=== PATIENT | male | born 1970 ===

== ENCOUNTER 2016-10-21 10:20 | Inpatient (IN) | payer OTHER, SELFPAY ==
[2016-10-21] MEDS ORDERED: Sodium Chloride 0.9% 1,000 ML IV ONE (10:54)
[2016-10-21] MEDS ORDERED: Albuterol-Ipratrop 3 mg / 0.5 (3 ml) UD IH STA (10:56)
--- NOTE | 2016-10-21 11:05 | C.PDOC ---
History Of Present Illness HX IS LIMITED DUE TO CLIN COND 45-YEAR-OLD MALE, PRESENTS TO THE EMERGENCY DEPARTMENT WITH CO WORSENING COUGH, ABD PAIN X SEV DAYS. GEN ABD PAIN, BLOATING. HO CHRONIC ETOH USE. PS "I DRANK ONLY 1 BEER THIS MORNING", LESS THAN USUAL. +COUGH, SOB. UNK FEVER. ROS LIMITED EXAM MOD TOX MOD RESP DIST 88% ON 5L HEENT ANICTERIC LUNGS TACHYPNIC, SPEAKING FULL SENTENCES +R RHONCHI CV RRR SINUS TACH GEN TREMORS NEURO INTACT PSYCH CALM COOPERATIVE NO ACUTE INTOX SKIN WARM DRY; CHRONIC PSORIATIC LESIONS RECTAL NO BLOOD NO STOOL IN VAULT Time Seen by Provider: 10/21/16 10:42 Chief Complaint (Nursing): Shortness Of Breath History/Exam Limitations: clinical condition Past Medical History Reviewed: Historical Data, Nursing Documentation, Vital Signs Vital Signs: Last Vital Signs Temp 102.2 F H 10/21/16 12:30 Pulse 142 H 10/21/16 13:11 Resp 20 10/21/16 13:11 BP 99/57 L 10/21/16 13:11 Pulse Ox 90 L 10/21/16 13:50 - Medical History PMH: HTN Family History: States: No Known Family Hx - Social History Hx Alcohol Use: Yes Hx Substance Use: No - Immunization History Hx Tetanus Toxoid Vaccination: No Hx Influenza Vaccination: No Hx Pneumococcal Vaccination: No Review Of Systems Review Of Systems: ROS cannot be obtained secondary to pt's inabilty to answer questions. Physical Exam - Physical Exam Appears: Other (MOD TOX MOD RESP DIST 88% ON 5L) Skin: Warm, Dry, Other (CHRONIC PSORIATIC LESIONS) Eye(s): bilateral: PERRL, Other (ANICTERIC) Nose: Normal Oral Mucosa: Moist Lips: Normal Appearing Neck: Normal ROM Cardiovascular: Rhythm Regular, No Murmur, Other (TACHYCARDIC) Respiratory: Other ( TACHYPNIC, SPEAKING FULL SENTENCES +R RHONCHI) Rectal: Other ( NO BLOOD NO STOOL IN VAULT) Extremity: Normal ROM Neurological/Psych: Other (CALM COOPERATIVE NO ACUTE INTOX; GEN TREMORS) ED Course And Treatment - Laboratory Results Result Diagrams: 10/21/16 11:04 10/21/16 11:04 Interpretation Of Abnormal: HYPOXEMIA ECG: Interpreted By Me, Viewed By Me ECG Rhythm: Sinus Tachycardia ECG Interpretation: No Acute Changes Rate From EC O2 Sat by Pulse Oximetry: 90 (on RA) Pulse Ox Interpretation: Normal Progress - Re-Evaluation Re-evaluation Note: 10/21/16 11:27 CODE SEPSIS ACTIVATED 10/21/16 11:42 ON VAPOTHERM, 95%. RESPIRATION IMPROVED 10/21/16 11:46 D/W DR JOHNSON ICU WILL EVAL 10/21/16 11:[address] DUE TO ABN GFR. 10/21/16 11:52 D/W DR CISNEROS WILL ADMIT 10/21/16 12:30 CALLED TO BEDSIDE BECAUSE PT ACTIVELY SEIZING; PATIENT FOUND TO BE APNEIC AND CYANOTIC WITH NO PALPABLE ULSE, PT IS BRADYCARDIC IN 40S. ACLS PROTOCOL INITIATED. PATIENT IS NOW AWAKE AND APPEARS POST-ICTAL. HE IS SINUS TACH 160S W POOR AIRWAY PROTECTION. CASE DW DR JOHNSON, WHO IS MADE AWARE, RECOMMENDS INTUBATION PRIOR TO ICU. ANASTHESIOLOGY WAS PAGED 10/21/16 13:59 DESAT 65% ON VENT. PERSIST PROFUSE SECRETIONS ON ETT SUCTION. 80% ON VENT, TV 550 - Data Reviewed Data Reviewed: Lab, Diagnostic imaging, EKG, Old records - Critical Care Citical Care: Excluding Proc Time Critical Care Time: 120 minutes - Continuity of Care Discussed patient case with:: Patient, On-call PMD-pt unassigned Discussed pt. case with senior financial consultant/specialty: Pulmonary/Crit. Care Disposition Counseled Patient/Family Regarding: Studies Performed, Diagnosis, Need For Followup - Disposition Disposition: HOSPITALIZED Disposition Time: 11:47 Condition: SERIOUS - Clinical Impression Clinical Impression: Pneumonia, Alcohol withdrawal, Hypoxemia, Respiratory distress - Scribe Statement The provider has reviewed the documentation as recorded by the Scribe (Chauncey Hernandez) All medical record entries made by the Scribe were at my direction and personally dictated by me. I have reviewed the chart and agree that the record accurately reflects my personal performance of the history, physical exam, medical decision making, and the department course for this patient. I have also personally directed, reviewed, and agree with the discharge instructions and disposition. Decision To Admit - Pt Status Changed To: Hospital Disposition Of: Inpatient - Admit Certification Admit to Inpatient:: After my assessment, the patient will require hospitalization for at least two midnights. This is because of the severity of symptoms shown, intensity of services needed, and/or the medical risk in this patient being treated as an outpatient. - InPatient: Physician Admission Certification: I certify that this patient requires 2 or more midnights of care for the following reason:: SEE NOTE - . Bed Request Type: ICU Admitting Physician: Chelsey Cisneros Patient Diagnosis: Pneumonia, Alcohol withdrawal, Hypoxemia, Respiratory distress
[2016-10-21] MEDS ORDERED: cefTRIAXone IV 1 gm in Dextros 50 ML IV ONE (11:07)
[2016-10-21] MEDS ORDERED: Azithromycin 500 MG in Sodium Chloride 0.9% 250 ML IV STA (11:07)
[2016-10-21 11:19] LABS: EOS % 0.1 % (0.0-4.0); HEMATOCRIT 38.8 % (35.0-51.0); LYMPH # 0.2 K/uL (1.0-4.3); LYMPH % 2.3 % (20.0-40.0); MEAN CELL VOLUME 98.8 fL (80.0-94.0); MEAN CORPUSCULAR HEMOGLOBIN 33.4 pg (27.0-31.0); MEAN CORPUSCULAR HGB CONC 33.8 g/dL (33.0-37.0); MEAN PLATELET VOLUME 10.4 fL (7.2-11.7); MONO # 0.2 K/uL (0.0-0.8); MONO % 2.2 % (0.0-10.0); RED CELL DISTRIBUTION WIDTH 14.8 % (11.5-14.5); WHITE BLOOD COUNT 10.6 K/uL (4.8-10.8)
[2016-10-21 11:25] LABS: POTASSIUM 3.3 mmol/L (3.6-5.2)
[2016-10-21 11:26] LABS: ABG ALLEN TEST POS; DRAW SITE RRAD
[2016-10-21 11:27] LABS: ALB/GLOB RATIO 0.8 (1.0-2.1); BILIRUBIN,TOTAL 3.5 mg/dL (0.2-1.3); PHOSPHOROUS 2.9 mg/dL (2.5-4.5); TOTAL PROTEIN 8.4 g/dL (6.3-8.3)
[2016-10-21 11:28] LABS: CALCIUM 8.8 mg/dl (8.6-10.4); MAGNESIUM 1.2 mg/dL (1.6-2.3)
[2016-10-21 11:32] LABS: PLATELET COUNT 57 K/uL (130-400)
[2016-10-21 11:35] LABS: INR 1.6
[2016-10-21] MEDS ORDERED: Sodium Chloride 0.9% 1,000 ML ONE (11:36)
[2016-10-21 11:37] LABS: VENOUS BLOOD GAS BASE EXCESS -9.9 mmol/L (0.0-2.0); VENOUS BLOOD GAS PCO2 24 mmHg (40-60); VENOUS BLOOD PH 7.36 (7.32-7.43)
[2016-10-21 11:40] LABS: TROPONIN I 0.015 ng/mL (0.00-0.120)
[2016-10-21] MEDS ORDERED: Azithromycin 500mg/250ML NS 500 MG/250 ML BAG IVPB ONE (11:43)
[2016-10-21] MEDS ORDERED: cefTRIAXone IV 1 gm in Dextros 50 ML IVPB ONE (11:43)
[2016-10-21] MEDS ORDERED: Iodixanol 320 MG/ML 100 ML BOTTLE IV ONE (11:48)
[2016-10-21 11:49] LABS: TOTAL CELLS COUNTED 100
[2016-10-21 11:57] LABS: METAMYELOCYTE 1 % (0-0)
[2016-10-21 12:03] LABS: NEUTROPHIL 48 % (50-75)
[2016-10-21 12:35] LABS: RBC URINE 70 /hpf (0-3); URINE BACTERIA MANY (<OCC); URINE BILIRUBIN 1+ (NEGATIVE); URINE BLOOD 2+ (NEGATIVE); URINE COLOR Amber (YELLOW); URINE GLUCOSE (UA) NORMAL (Normal); URINE HYALINE CAST >20 /lpf (0-2); URINE KETONE NEGATIVE (NEGATIVE); URINE LEUKOCYTE ESTERASE NEG Leu/uL (Negative); URINE PROTEIN 2+ mg/dL (NEGATIVE); WBC URINE 6 /hpf (0-5)
[2016-10-21] MEDS ORDERED: Etomidate 20 mg/10ml Inj IV ONE ×2 (12:53→15:30)
[2016-10-21] MEDS ORDERED: Succinylcholine Chloride 20 mg/ml Syr (5 ml) IV STA (12:57)
[2016-10-21] MEDS ORDERED: Rocuronium 10 mg/ml (5 ml) IV ONE (13:06)
[2016-10-21] MEDS ORDERED: Midazolam 2 MG/2 ML VIAL IVP ONE (13:09)
--- NOTE | 2016-10-21 13:21 | CP.PCM.HP ---
<AndrySimran AnishaJunito - Last Filed: 10/21/16 18:31> History of Present Illness - History of Present Illness History of Present Illness: History is limited due to patient is in acute distress. per the ED note this is a 45 year old male who presented to the ED with complaint of worsening cough, abdominal pain for seven days. General abdominal pain and bloating. Chronic alcohol use, "I drank only one beer this morning," less than usual. Patient had a seizure in the ED which was followed by hypotension and hypoxia. Patient was intubated in the emergency room. Patient was transferred to the ICU where he was sedated and a central line was placed. Present on Admission - Present on Admission Any Indicators Present on Admission: No Review of Systems - Review of Systems Systems not reviewed;Unavailable: Intubated Past Patient History - Infectious Disease Hx of Infectious Diseases: None - Past Social History Smoking Status: Former Smoker - CARDIAC Hx Hypertension: Yes - INTEGUMENTARY Hx Psoriasis: Yes - PSYCHIATRIC Hx Substance Use: No - SURGICAL HISTORY Hx Surgeries: No - ANESTHESIA Hx Anesthesia: No Meds Allergies/Adverse Reactions: Allergies Allergy/AdvReac Type Severity Reaction Status Date / Time No Known Allergies Allergy Verified 10/21/16 10:28 Physical Exam - Constitutional Appears: In Acute Distress - Head Exam Head Exam: ATRAUMATIC, NORMAL INSPECTION - ENT Exam ENT Exam: Mucous Membranes Moist - Respiratory Exam Respiratory Exam: Decreased Breath Sounds, Respiratory Distress Additional comments: Patient is intubated - Cardiovascular Exam Cardiovascular Exam: Tachycardia, REGULAR RHYTHM, +S1, +S2 - GI/Abdominal Exam GI & Abdominal Exam: Distended, Firm, Normal Bowel Sounds - Extremities Exam Extremities exam: Positive for: normal inspection. Negative for: pedal edema - Neurological Exam Additional comments: Patient is sedated - Skin Additional comments: 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, bilateral upper extremities, and in gluteal fold. Results - Vital Signs Recent Vital Signs: Last Vital Signs Temp 102.2 F H 10/21/16 12:30 Pulse 85 10/21/16 12:30 Resp 34 H 10/21/16 12:30 BP 131/79 10/21/16 12:30 Pulse Ox 90 L 10/21/16 13:19 - Labs Result Diagrams: 10/21/16 18:06 10/21/16 18:06 Labs: Laboratory Results - last 24 hr 10/21/16 10/21/16 12:14 12:14 Urine Color Bree Urine Clarity Turbid Urine pH 5.0 Ur Specific [place] 1.024 Urine Protein 2+ H Urine Glucose (UA) Normal Urine Ketones Negative Urine Blood 2+ H Urine Nitrate Negative Urine Bilirubin 1+ H Urine Urobilinogen 2.0 Ur Leukocyte Esterase Neg Urine WBC (Auto) 6 H Urine RBC (Auto) 70 H Ur Squamous Epith Cells 8 H Urine Bacteria Many H Hyaline Casts >20 H Urine Opiates Screen Negative Urine Methadone Screen Negative Ur Barbiturates Screen Negative Ur Phencyclidine Scrn Negative Ur Amphetamines Screen Negative U Benzodiazepines Scrn Negative U Oth Cocaine Metabols Negative U Cannabinoids Screen Negative Assessment & Plan (1) Alcohol withdrawal Assessment and Plan: 45 year old male who presented to the ED with complaint of worsening cough, abdominal pain for seven days. - Chronic alcohol abuse - Sedated - Propofol - Intubated - f/u CT of head - Neurology Consult: Dr. Pineda --> help appreciated - Folic Acid, Thamine, Multivitamin IV daily in 5% Dextrose - Chest X-ray (10/21): Persistent dense opacity in the right upper and mid lung could represent consolidation, underlying mass could no be excluded. Also suspected is developing pulmonary edema in the left lung, bilateral pulmonary venous congestion and interstitial pulmonary edema. The right IJV line terminates in the SVC. No pneumothorax. - Sodium Bicarb Drip - pH: 7.08 - Lactate: 3.1 - Platelets (10/21): 52 DVT proph - SCDs; contraindication of VTE due to low platelets GI proph - Pepcid 20mg PO Daily Code status - full code Status: Acute Priority: High (2) Sepsis Assessment and Plan: - Sepsis due to Pneumonia - f/u blood culture, f/u urine culture, f/u sputum culture - Zosyn started 10/21 - ID Consult: Dr. Bowers --> help appreciated Status: Acute Priority: High (3) Thrombocythemia Assessment and Plan: - H/H (10/21): 11.4/34.4 - PT/INR: 18.5/1.6 - Platelets (10/21): 52 Status: Chronic (4) Transaminitis Assessment and Plan: - AST/ALT: 91/50 - Monitor Status: Acute <Tisha,Juan C M - Last Filed: 10/22/16 17:55> Results - Vital Signs Recent Vital Signs: Last Vital Signs Temp 100.4 F H 10/22/16 09:28 Pulse 120 H 10/22/16 17:30 Resp 28 H 10/22/16 17:30 BP 112/75 10/22/16 16:59 Pulse Ox 96 10/22/16 17:30 - Labs Result Diagrams: 10/22/16 06:31 10/22/16 06:31 Labs: Laboratory Results - last 24 hr 10/21/16 10/21/16 10/21/16 18:06 18:06 20:00 WBC 6.2 RBC 3.46 L Hgb 11.4 L Hct 34.4 L MCV 99.4 H MCH 33.0 H MCHC 33.2 RDW 14.9 H Plt Count 52 L MPV 10.1 Neut % (Auto) 92.7 H Lymph % (Auto) 3.5 L Moca % (Auto) 1.8 Eos % (Auto) 1.8 Baso % (Auto) 0.2 Neut # 5.8 Lymph # 0.2 L Moca # 0.1 Eos # 0.1 Baso # 0.0 Neutrophils % (Manual) 41 L Band Neutrophils % 43 H* Lymphocytes % (Manual) 6 L Monocytes % (Manual) 1 Metamyelocytes % 6 H Myelocytes % 3 H Nucleated RBC % Platelet Estimate Decreased L Hypochromasia (manual) Poikilocytosis (manual Anisocytosis (manual) Tear Drop Cells Ja Cells Puncture Site Rba pCO2 38 pO2 54 L HCO3 18.7 L ABG pH 7.29 L ABG Total CO2 19.5 L ABG O2 Saturation 90.9 L ABG Base Excess -7.7 L ABG Hemoglobin 11.4 L ABG Carboxyhemoglobin 1.6 H POC ABG HHb (Measured) 8.9 H ABG Methemoglobin 1.0 Nicolas Test Pos ABG Potassium A-a O2 Difference 612.0 Respiratory Index 11.3 Hgb O2 Saturation 88.4 L Glucose Lactate Vent Mode Prvc Mechanical Rate 24 FiO2 100.0 Tidal Volume 600 PEEP 6 Sodium 133 Potassium 4.2 Chloride 101 Carbon Dioxide 19 L Anion Gap 17 BUN 27 H Creatinine 1.9 H Est GFR ( Amer) 46 Est GFR (Non-Af Amer) 38 POC Glucose (mg/dL) Random Glucose 90 Calcium 6.5 L Phosphorus 5.4 H Magnesium 1.6 Total Bilirubin 2.6 H AST 91 H D ALT 50 Alkaline Phosphatase 46 Ammonia Total Protein 6.2 L Albumin 2.5 L D Globulin 3.7 Albumin/Globulin Ratio 0.7 L Procalcitonin Arterial Blood Potassium Random Vancomycin Hepatitis A IgM Ab Hep Bs Antigen Hep B Core IgM Ab Hepatitis C Antibody HIV 1&2 Antibody Screen 10/22/16 10/22/16 10/22/16 05:26 06:31 06:31 WBC 5.9 RBC 3.23 L Hgb 10.8 L Hct 32.2 L MCV 99.7 H MCH 33.5 H MCHC 33.6 RDW 15.0 H Plt Count 43 L MPV 10.1 Neut % (Auto) 92.3 H Lymph % (Auto) 3.9 L Moca % (Auto) 3.3 Eos % (Auto) 0.5 Baso % (Auto) 0.0 Neut # 5.4 Lymph # 0.2 L Moca # 0.2 Eos # 0.0 Baso # 0.0 Neutrophils % (Manual) 44 L Band Neutrophils % 49 H* Lymphocytes % (Manual) 2 L Monocytes % (Manual) 5 Metamyelocytes % Myelocytes % Nucleated RBC % 1 H Platelet Estimate Decreased L Hypochromasia (manual) Slight Poikilocytosis (manual Slight Anisocytosis (manual) Slight Tear Drop Cells Slight [place] Cells Slight Puncture Site Rr pCO2 42 pO2 54 L HCO3 22.4 ABG pH 7.34 L ABG Total CO2 24.0 ABG O2 Saturation 91.7 L ABG Base Excess -3.0 L ABG Hemoglobin 10.7 L ABG Carboxyhemoglobin 1.3 POC ABG HHb (Measured) 8.1 H ABG Methemoglobin 1.5 Nicolas Test Pos ABG Potassium A-a O2 Difference 600.0 Respiratory Index 10.3 Hgb O2 Saturation 89.0 L Glucose Lactate Vent Mode A/c Mechanical Rate 24 FiO2 100.0 Tidal Volume 500 PEEP 6 Sodium Potassium Chloride Carbon Dioxide Anion Gap BUN Creatinine Est GFR ( Amer) Est GFR (Non-Af Amer) POC Glucose (mg/dL) Random Glucose Calcium Phosphorus Magnesium Total Bilirubin AST ALT Alkaline Phosphatase Ammonia Total Protein Albumin Globulin Albumin/Globulin Ratio Procalcitonin 143.18 H Arterial Blood Potassium Random Vancomycin Hepatitis A IgM Ab Hep Bs Antigen Hep B Core IgM Ab Hepatitis C Antibody HIV 1&2 Antibody Screen 10/22/16 10/22/16 10/22/16 06:31 06:31 06:31 WBC RBC Hgb Hct MCV MCH MCHC RDW Plt Count MPV Neut % (Auto) Lymph % (Auto) [place]oca % (Auto) Eos % (Auto) Baso % (Auto) Neut # Lymph # Moca # Eos # Baso # Neutrophils % (Manual) Band Neutrophils % Lymphocytes % (Manual) Monocytes % (Manual) Metamyelocytes % Myelocytes % Nucleated RBC % Platelet Estimate Hypochromasia (manual) Poikilocytosis (manual Anisocytosis (manual) Tear Drop Cells Ja Cells Puncture Site pCO2 pO2 HCO3 ABG pH ABG Total CO2 ABG O2 Saturation ABG Base Excess ABG Hemoglobin ABG Carboxyhemoglobin POC ABG HHb (Measured) ABG Methemoglobin [place] Test ABG Potassium A-a O2 Difference Respiratory Index Hgb O2 Saturation Glucose Lactate Vent Mode Mechanical Rate FiO2 Tidal Volume PEEP Sodium 133 Potassium 3.7 Chloride 97 L Carbon Dioxide 21 L Anion Gap 19 BUN 42 H Creatinine 3.0 H Est GFR ( Amer) 27 Est GFR (Non-Af Amer) 23 POC Glucose (mg/dL) Random Glucose 87 Calcium 6.7 L Phosphorus 5.7 H Magnesium 1.7 Total Bilirubin 2.8 H AST 145 H D ALT 62 Alkaline Phosphatase 30 L D Ammonia 51 H Total Protein 5.8 L Albumin 2.5 L Globulin 3.3 Albumin/Globulin Ratio 0.8 L Procalcitonin Arterial Blood Potassium Random Vancomycin Hepatitis A IgM Ab Negative Hep Bs Antigen Negative Hep B Core IgM Ab Negative Hepatitis C Antibody Negative HIV 1&2 Antibody Screen 10/22/16 10/22/16 10/22/16 06:31 11:44 17:37 WBC RBC Hgb Hct MCV MCH MCHC RDW Plt Count MPV Neut % (Auto) Lymph % (Auto) [place] % (Auto) Eos % (Auto) Baso % (Auto) Neut # Lymph # Moca # Eos # Baso # Neutrophils % (Manual) Band Neutrophils % Lymphocytes % (Manual) Monocytes % (Manual) Metamyelocytes % Myelocytes % Nucleated RBC % Platelet Estimate Hypochromasia (manual) Poikilocytosis (manual Anisocytosis (manual) Tear Drop Cells [place] Cells Puncture Site Rra pCO2 34 L pO2 55 L HCO3 23.4 ABG pH 7.42 ABG Total CO2 23.1 ABG O2 Saturation 93.9 L ABG Base Excess -1.7 ABG Hemoglobin ABG Carboxyhemoglobin POC ABG HHb (Measured) ABG Methemoglobin Nicolas Test Pos ABG Potassium 4.4 A-a O2 Difference 616.0 Respiratory Index 11.2 Hgb O2 Saturation Glucose 90 Lactate 2.1 Vent Mode Mechanical Rate 24 FiO2 100.0 Tidal Volume 500 PEEP 10 Sodium 137.0 Potassium Chloride 105.0 Carbon Dioxide Anion Gap BUN Creatinine Est GFR ( Amer) Est GFR (Non-Af Amer) POC Glucose (mg/dL) 81 Random Glucose Calcium Phosphorus Magnesium Total Bilirubin AST ALT Alkaline Phosphatase Ammonia Total Protein Albumin Globulin Albumin/Globulin Ratio Procalcitonin Arterial Blood Potassium 4.4 Random Vancomycin 12.07 Hepatitis A IgM Ab Hep Bs Antigen Hep B Core IgM Ab Hepatitis C Antibody HIV 1&2 Antibody Screen Negative Assessment & Plan (1) Alcohol withdrawal Status: Acute Priority: High (2) Hypoxemia Status: Acute (3) Pneumonia Status: Acute (4) Respiratory distress Status: Acute (5) Seizure disorder Status: Acute Priority: High (6) Sepsis Status: Acute Priority: High (7) Thrombocythemia Status: Chronic (8) Psoriasis Status: Acute Attending/Attestation - Attestation I have personally seen and examined this patient.: Yes I have fully participated in the care of the patient.: Yes I have reviewed all pertinent clinical information: Yes Notes (Text): 10/22/16 17:54 Patient was seen and examined at bedside in ICU. I discussed the plan of care with the admitting team. I agree with the history and physical and assessment/ plan documented by the resident.
--- NOTE | 2016-10-21 13:21 | CP.PCM.CON ---
<Anoop Wildessyca AnishaJunito - Last Filed: 10/21/16 18:13> History of Present Illness - History of Present Illness History of Present Illness: History is limited due to patient is in acute distress. per the ED note this is a 45 year old male who presented to the ED with complaint of worsening cough, abdominal pain for seven days. General abdominal pain and bloating. Chronic alcohol use, "I drank only one beer this morning," less than usual. Patient had a seizure in the ED which was followed by hypotension and hypoxia. Patient was intubated in the emergency room. Patient was transferred to the ICU where he was sedated and a central line was placed. Review of Systems - Review of Systems Systems not reviewed;Unavailable: Intubated Past Patient History - Infectious Disease Hx of Infectious Diseases: None - Past Social History Smoking Status: Former Smoker - CARDIAC Hx Hypertension: Yes - INTEGUMENTARY Hx Psoriasis: Yes - PSYCHIATRIC Hx Substance Use: No - SURGICAL HISTORY Hx Surgeries: No - ANESTHESIA Hx Anesthesia: No Meds Allergies/Adverse Reactions: Allergies Allergy/AdvReac Type Severity Reaction Status Date / Time No Known Allergies Allergy Verified 10/21/16 10:28 - Medications Medications: Current Medications Sodium Chloride (Sodium Chloride 0.9%) 1,000 mls @ 100 mls/hr IV .Q10H ONE Stop: 10/21/16 20:53 Sodium Chloride (Sodium Chloride 0.9%) 2,250 mls @ 1,000 mls/hr IV .Q2H15M ONE Stop: 10/21/16 13:41 Last Admin: 10/21/16 11:30 Dose: 1,000 mls/hr Physical Exam - Constitutional Appears: In Acute Distress - Head Exam Head Exam: ATRAUMATIC, NORMAL INSPECTION - ENT Exam ENT Exam: Mucous Membranes Moist - Neck Exam Neck exam: Positive for: Normal Inspection - Respiratory Exam Respiratory Exam: Decreased Breath Sounds - Cardiovascular Exam Cardiovascular Exam: Tachycardia, REGULAR RHYTHM, +S1, +S2 - GI/Abdominal Exam GI & Abdominal Exam: Distended, Firm, Normal Bowel Sounds - Extremities Exam Extremities exam: Positive for: normal inspection. Negative for: pedal edema - Neurological Exam Additional comments: Patient is sedated - Skin Additional comments: 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, bilateral upper extremities, and in gluteal fold. Results - Vital Signs Recent Vital Signs: Last Vital Signs Temp 102.2 F H 10/21/16 12:30 Pulse 85 10/21/16 12:30 Resp 34 H 10/21/16 12:30 BP 131/79 10/21/16 12:30 Pulse Ox 90 L 10/21/16 13:19 - Labs Result Diagrams: 10/21/16 18:06 10/21/16 11:04 Labs: Laboratory Results - last 24 hr 10/21/16 10/21/16 12:14 12:14 Urine Color Bree Urine Clarity Turbid Urine pH 5.0 Ur Specific And[place] 1.024 Urine Protein 2+ H Urine Glucose (UA) Normal Urine Ketones Negative Urine Blood 2+ H Urine Nitrate Negative Urine Bilirubin 1+ H Urine Urobilinogen 2.0 Ur Leukocyte Esterase Neg Urine WBC (Auto) 6 H Urine RBC (Auto) 70 H Ur Squamous Epith Cells 8 H Urine Bacteria Many H Hyaline Casts >20 H Urine Opiates Screen Negative Urine Methadone Screen Negative Ur Barbiturates Screen Negative Ur Phencyclidine Scrn Negative Ur Amphetamines Screen Negative U Benzodiazepines Scrn Negative U Oth Cocaine Metabols Negative U Cannabinoids Screen Negative Assessment & Plan (1) Alcohol withdrawal Assessment and Plan: 45 year old male who presented to the ED with complaint of worsening cough, abdominal pain for seven days. Neuro: - Chronic alcohol abuse - Sedated - Propofol - Intubated - f/u CT of head - Neurology Consult: Dr. Pineda --> help appreciated - Folic Acid, Thamine, Multivitamin IV daily in 5% Dextrose Pulm: - Intubated - Chest X-ray (10/21): Persistent dense opacity in the right upper and mid lung could represent consolidation, underlying mass could no be excluded. Also suspected is developing pulmonary edema in the left lung, bilateral pulmonary venous congestion and interstitial pulmonary edema. The right IJV line terminates in the SVC. No pneumothorax. - Sodium Bicarb Drip - pH: 7.08 - Lactate: 3.1 CV: - Monitor Heme: - H/H (10/21): 11.4/34.4 - PT/INR: 18.5/1.6 - Platelets (10/21): 52 Renal: - BUN/Cr (10/21): 27/1.9 - Garcia placed 10/21 - Monitor Endo: - Monitor - No acute issues GI: - NPO - AST/ALT: 91/50 - Monitor ID: - Sepsis due to Pneumonia - f/u blood culture, f/u urine culture, f/u sputum culture - Zosyn started 10/21 - ID Consult: Dr. Bowers --> help appreciated DVT proph - SCDs; contraindication of VTE due to low platelets GI proph - Pepcid 20mg PO Daily Code status - full code Case discussed with Dr. Jason Wilde PGY-1 Status: Acute Priority: High <Osmani Turner - Last Filed: 10/21/16 18:53> Meds - Medications Medications: Current Medications Famotidine (Pepcid) 20 mg IVP DAILY [facility] Last Admin: 10/21/16 14:36 Dose: 20 mg Dopamine HCl/Dextrose (Dopamine 400mg/250ml D5w) 400 mg in 250 mls @ 5.613 mls/ hr IV .Q24H PRN; Protocol; 2 MCG/KG/MIN PRN Reason: TITRATE PER MD ORDER Last Titration: 10/21/16 15:00 Dose: 0 mcg/kg/min, 0 mls/hr Piperacillin Sod/Tazobactam Sod (Zosyn 2.25 Gm Iv Premix) 2.25 gm in 50 mls @ 100 mls/hr IVPB Q8H [facility] Last Admin: 10/21/16 15:26 Dose: 100 mls/hr Propofol (Diprivan) 1,000 mg in 100 mls @ 2.245 mls/hr IV .Q24H PRN; Protocol; 5 MCG/KG/MIN PRN Reason: Agitation Last Titration: 10/21/16 15:31 Dose: 40 mcg/kg/min, 17.962 mls/hr Sodium Bicarbonate 100 meq/ (Sodium Chloride) 1,100 mls @ 75 mls/hr IV .[id number] [facility] Last Admin: 10/21/16 17:37 Dose: 75 mls/hr Folic Acid 1 mg/ Thiamine HCl 100 mg/ Multivitamins/Vitamin C 10 ml/ Dextrose 1 ,011.2 mls @ 50 mls/hr IV DAILY [facility] Results - Vital Signs Recent Vital Signs: Last Vital Signs Temp 97.8 F 10/21/16 16:00 Pulse 122 H 10/21/16 18:00 Resp 23 10/21/16 18:00 BP 86/54 L 0719/17 18:00 Pulse Ox 87 L 10/21/16 18:00 - Labs Result Diagrams: 10/21/16 18:06 10/21/16 18:06 Labs: Laboratory Results - last 24 hr 10/21/16 10/21/16 10/21/16 12:14 12:14 15:55 WBC RBC Hgb Hct MCV MCH MCHC RDW Plt Count MPV Neut % (Auto) Lymph % (Auto) Sandoval % (Auto) Eos % (Auto) Baso % (Auto) Neut # Lymph # Sandoval # Eos # Baso # Puncture Site Rna pCO2 61 H pO2 63 L HCO3 14.7 L ABG pH 7.08 L* ABG Total CO2 20.0 L ABG O2 Saturation 88.9 L ABG Base Excess -12.5 L Nicolas Test Pos ABG Potassium 4.1 A-a O2 Difference 574.0 Respiratory Index 9.1 Sodium 134.0 Chloride 106.0 Glucose 97 Lactate 3.1 H Vent Mode Prvc Mechanical Rate 20 FiO2 100.0 Tidal Volume 550 PEEP 6 Crit Value Called To Dr turner Crit Value Called By [facility] Crit Value Read Back Y Blood Gas Notified Time 1600 Potassium Carbon Dioxide Anion Gap BUN Creatinine Est GFR ( Amer) Est GFR (Non-Af Amer) Random Glucose Calcium Phosphorus Magnesium Total Bilirubin AST ALT Alkaline Phosphatase Total Protein Albumin Globulin Albumin/Globulin Ratio Arterial Blood Potassium 4.1 Urine Color Bree Urine Clarity Turbid Urine pH 5.0 Ur Specific [place] 1.024 Urine Protein 2+ H Urine Glucose (UA) Normal Urine Ketones Negative Urine Blood 2+ H Urine Nitrate Negative Urine Bilirubin 1+ H Urine Urobilinogen 2.0 Ur Leukocyte Esterase Neg Urine WBC (Auto) 6 H Urine RBC (Auto) 70 H Ur Squamous Epith Cells 8 H Urine Bacteria Many H Hyaline Casts >20 H Urine Opiates Screen Negative Urine Methadone Screen Negative Ur Barbiturates Screen Negative Ur Phencyclidine Scrn Negative Ur Amphetamines Screen Negative U Benzodiazepines Scrn Negative U Oth Cocaine Metabols Negative U Cannabinoids Screen Negative 10/21/16 10/21/16 18:06 18:06 WBC 6.2 RBC 3.46 L Hgb 11.4 L Hct 34.4 L MCV 99.4 H MCH 33.0 H MCHC 33.2 RDW 14.9 H Plt Count 52 L MPV 10.1 Neut % (Auto) 92.7 H Lymph % (Auto) 3.5 L Sandoval % (Auto) 1.8 Eos % (Auto) 1.8 Baso % (Auto) 0.2 Neut # 5.8 Lymph # 0.2 L Sandoval # 0.1 Eos # 0.1 Baso # 0.0 Puncture Site pCO2 pO2 HCO3 ABG pH ABG Total CO2 ABG O2 Saturation ABG Base Excess Nicolas Test ABG Potassium A-a O2 Difference Respiratory Index Sodium 133 Chloride 101 Glucose Lactate Vent Mode Mechanical Rate FiO2 Tidal Volume PEEP Crit Value Called To Crit Value Called By Crit Value Read Back Blood Gas Notified Time Potassium 4.2 Carbon Dioxide 19 L Anion Gap 17 BUN 27 H Creatinine 1.9 H Est GFR ( Amer) 46 Est GFR (Non-Af Amer) 38 Random Glucose 90 Calcium 6.5 L Phosphorus 5.4 H Magnesium 1.6 Total Bilirubin 2.6 H AST 91 H D ALT 50 Alkaline Phosphatase 46 Total Protein 6.2 L Albumin 2.5 L D Globulin 3.7 Albumin/Globulin Ratio 0.7 L Arterial Blood Potassium Urine Color Urine Clarity Urine pH Ur Specific Andes Urine Protein Urine Glucose (UA) Urine Ketones Urine Blood Urine Nitrate Urine Bilirubin Urine Urobilinogen Ur Leukocyte Esterase Urine WBC (Auto) Urine RBC (Auto) Ur Squamous Epith Cells Urine Bacteria Hyaline Casts Urine Opiates Screen Urine Methadone Screen Ur Barbiturates Screen Ur Phencyclidine Scrn Ur Amphetamines Screen U Benzodiazepines Scrn U Oth Cocaine Metabols U Cannabinoids Screen Attending/Attestation - Attestation I have personally seen and examined this patient.: Yes I have fully participated in the care of the patient.: Yes I have reviewed all pertinent clinical information: Yes Notes (Text): 10/21/16 18:51 Patient seen and examined. 45-year-ld male admitted to ICU for respiratory failure/pneumonia/severe sepsis/ alcohol withdrawal delirium Patient intubated on ventilatory support requiring high FiO2 Started on IV antibiotics Follow-up culture and sensitivity Fluid resuscitation Started on bicarbonate drip for severe acidosis monitor intake and output Pressors as needed Continue IV sedation Banana bag
--- NOTE | 2016-10-21 13:22 | RAD ---
PROCEDURE: CHEST RADIOGRAPH, 1 VIEW HISTORY: Shortness of breath COMPARISON: None available. FINDINGS: LUNGS: There is an ovoid opacity in the right upper lobe. There are low lung volumes. There is mild pulmonary venous congestion. PLEURA: No pneumothorax or pleural fluid seen. CARDIOVASCULAR: Normal. OSSEOUS STRUCTURES: No significant abnormalities. VISUALIZED UPPER ABDOMEN: Normal. OTHER FINDINGS: None. IMPRESSION: Suspect right upper lobe pneumonia. Follow-up after medical management is recommended to ensure complete resolution.
[2016-10-21] MEDS ORDERED: DOPamine 400mg/250ml D5W 400 MG/250 ML BAG IV PRN (13:30)
--- NOTE | 2016-10-21 14:05 | RAD ---
HISTORY: ET Tube placement confirmation COMPARISON: No prior. FINDINGS: LUNGS: Persistent infiltrate or focal atelectasis affects the right perihilar upper lobe region, potentially increase slightly in the interval in the interval. This could be function magnification however. Patient is intubated with the tip of initiate tube terminating several cm cm above the sarah at the level a bubble low levels of the of the clavicles in the plane of the trachea. No pneumothorax bilaterally. Temporary pacemaker/defibrillator device obscures left chest. Left basilar atelectasis appear persist. No definite pleural effusion bilaterally. Positive patterns obscured. Cardiac size stable. PLEURA: See discussion above in lung section. CARDIOVASCULAR: See above. OSSEOUS STRUCTURES: No significant abnormalities. VISUALIZED UPPER ABDOMEN: Unremarkable. OTHER FINDINGS: None. IMPRESSION: 1. Endotracheal tube placed as discussed above. 2. Persistent and increased right perihilar/upper lobe infiltration has not/atelectasis. 3. Left basilar atelectasis or infiltrate persists. .
[2016-10-21] MEDS ORDERED: Vancomycin 1 gm/NS 200 ml 1 GM/200 ML BAG IVPB STA (14:30)
[2016-10-21] MEDS: Propofol 10 mg/ml 1,000 MG/100 ML VIAL IV PRN ×3 (14:30→23:39)
[2016-10-21] MEDS ORDERED: Folic Acid 1 MG, Thiamine 100 MG, Multivitamin (MVI) 10 ML in Dextrose 5% In Water 1,00... IV SCH ×2 (14:30→16:18)
[2016-10-21] MEDS ORDERED: Sodium Chloride 0.9% 1,000 ML IV SCH (14:30)
[2016-10-21] MEDS ORDERED: Magnesium Sulfate 1 gm in D5W 1 GM/100 ML BAG IVPB ONE (15:00)
[2016-10-21] MEDS ORDERED: Phytonadione 10 mg/ml Inj (Adult) IV STA (15:07)
--- NOTE | 2016-10-21 15:23 | PCM.SEPTIC ---
Sepsis Progress Note - Reassessment Type Date of Evaluation: 10/21/16 Time of Evaluation: 14:00 Reassessment Type: Invasive reassessment (Patient was intubated in the emergency room; Central Line was placed in the ICU) - Non Invasive Reassessment Were the most recent vital sign reviewed: Yes Vital Sign (Latest): Temp Pulse Resp BP Pulse Ox 102.2 F H 134 H 21 114/72 90 L 10/21/16 12:30 10/21/16 15:00 10/21/16 15:00 10/21/16 15:00 10/21/16 15:00 Cardiovascular: Yes: Tachycardia Respiratory: Yes: Other (patient was intubated in the emergency room) Capillary Refill: Normal (Less than 2 sec) Pulses: Normal Radial, Normal Dorsalis Pedis, Normal Posterior Tibialis Skin: Normal Color, Warm - Invasive Reassessment (complete 2 of 4) Was a Central Venous Pressure Measurement obtained within 6 Hours after the presentation of septic shock: No Was a central venous oxygen measurement obtained within 6 hours after the presentation of septic shock: No Was a bedside cardiovascular ultrasound performed within 6 hours after the presentation of septic shock: No Was a passive leg raise performed or was a fluid challenge performed within 6 hrs of the initial fluid bolus: No Fluid Challenge performed: No
[2016-10-21] MEDS: Piperacill/Tazo 2.25gm in Dex 2.25 GM/50 ML BAG IVPB SCH ×2 (15:26→22:47)
[2016-10-21] MEDS ORDERED: Succinylcholine Chloride 20 mg/ml Syr (5 ml) IV ONE (15:30)
[2016-10-21] MEDS ORDERED: Rocuronium 10 mg/ml (5 ml) ONE (15:30)
--- NOTE | 2016-10-21 15:32 | RAD ---
HISTORY: tlc placement COMPARISON: 10/21/2016 and 1:08 p.m. FINDINGS: The endotracheal tube terminates 4 cm proximal to the sarah. The right IJV line terminates in the SVC. The nasogastric tube terminates in the stomach. LUNGS: There is persistent opacity in the right upper and mid lung. There is perihilar airspace disease in the left lung. There is also pulmonary venous congestion and interstitial pulmonary edema. PLEURA: Question of bilateral pleural effusions. No pneumothorax. CARDIOVASCULAR: Normal. OSSEOUS STRUCTURES: No significant abnormalities. VISUALIZED UPPER ABDOMEN: Normal. OTHER FINDINGS: None. IMPRESSION: 1. Persistent dense opacity in the right upper and mid lung could represent consolidation, underlying mass could not be excluded. 2. Also suspected is developing pulmonary edema in the left lung, bilateral pulmonary venous congestion and interstitial pulmonary edema. 3. The right IJV line terminates in the SVC. No pneumothorax.
[2016-10-21 16:00] LABS: ABG ALLEN TEST POS; ABG MECHANICAL RATE 20; ARTERIAL BLOOD GAS MODE PRVC; ATERIAL BLOOD GAS PEEP 6; DRAW SITE RNA
--- NOTE | 2016-10-21 16:00 | PCM.ANES ---
Anesthesia Emergent Intubation - Consult Reason for Consult:: Hypoxia - Intubation Attempts Previous Number of Intubation Attempts:: 0 - Pre-Intubation Vital Signs Blood Pressure: 106/50 Heart Rate: 140 Respiratory Rate: 26 O2 Sat: 85 FIO2: 100 Oxygen Delivery Method: Mask Level Of Consciousness: Disoriented, Inappropriate, Lethargic, Sedated, Unable to follow directions Intubation Meds Given: Etomidate, Succinylcholine - Airway Management Oropharyngeal Area Suctioned: Yes Rapid Sequence: Yes Cricoid Pressure: Yes Possible Aspiration: Yes (possible aspiration during seizure/acls) - Method of Intubation Intubation Method: Oral ETT ETT Size: 8.0 Lipline@: 21cm Easy: Yes Atramatic: Yes - Intubation Devices Brigitte Blade Size Used: 3 - Placement Confirmation Breath Sounds Present & Equal Bilaterally: Yes Gurgling Sounds Not Audible at Epigastrum: Yes Positive EtCO2: Yes Portable CXR: Yes (4cm above sarah) Recommendations: Ventilator - Post-Intubation Vital Signs Blood Pressure: 100/50 Heart Rate: 135 Respiratory Rate: 20 O2 Sat: 80 FIO2: 1
[2016-10-21] MEDS ORDERED: Sodium Bicarbonate (8.4%) 50 Meq Syringe IVP ONE (16:03)
[2016-10-21] MEDS ORDERED: Sodium Bicarbonate (8.4%) 50 Meq Syringe IVP STA (16:08)
[2016-10-21] MEDS ORDERED: Sodium Bicarbonate (8.4%) 50 Meq Syringe ONE (16:09)
--- NOTE | 2016-10-21 17:12 | CP.PCM.CON ---
History of Present Illness - History of Present Illness History of Present Illness: 45 yo male admitted to ICU from ER with DT's, alcoholic hepatitis, r/o cirrhosis , sepsis, resp failure , seizures, pneumonia on pressors On pressors, vented, NGT in place Currently intubated in ICU ID consulted for antibiotic management Review of Systems - Review of Systems Systems not reviewed;Unavailable: Acuity of Condition, Altered Mental Status, Intubated Past Patient History - Infectious Disease Hx of Infectious Diseases: None - Past Social History Smoking Status: Former Smoker - CARDIAC Hx Hypertension: Yes - INTEGUMENTARY Hx Psoriasis: Yes - MUSCULOSKELETAL/RHEUMATOLOGICAL Hx Falls: No - PSYCHIATRIC Hx Substance Use: No - SURGICAL HISTORY Hx Surgeries: No - ANESTHESIA Hx Anesthesia: No Meds Allergies/Adverse Reactions: Allergies Allergy/AdvReac Type Severity Reaction Status Date / Time No Known Allergies Allergy Verified 10/21/16 10:28 - Medications Medications: Current Medications Famotidine (Pepcid) 20 mg IVP DAILY [facility] Last Admin: 10/21/16 14:36 Dose: 20 mg Dopamine HCl/Dextrose (Dopamine 400mg/250ml D5w) 400 mg in 250 mls @ 5.613 mls/ hr IV .Q24H PRN; Protocol; 2 MCG/KG/MIN PRN Reason: TITRATE PER MD ORDER Last Titration: 10/21/16 15:00 Dose: 0 mcg/kg/min, 0 mls/hr Piperacillin Sod/Tazobactam Sod (Zosyn 2.25 Gm Iv Premix) 2.25 gm in 50 mls @ 100 mls/hr IVPB Q8H [facility] Last Admin: 10/21/16 15:26 Dose: 100 mls/hr Propofol (Diprivan) 1,000 mg in 100 mls @ 2.245 mls/hr IV .Q24H PRN; Protocol; 5 MCG/KG/MIN PRN Reason: Agitation Last Titration: 10/21/16 15:31 Dose: 40 mcg/kg/min, 17.962 mls/hr Sodium Bicarbonate 100 meq/ (Sodium Chloride) 1,100 mls @ 75 mls/hr IV .[id number] [facility] Folic Acid 1 mg/ Thiamine HCl 100 mg/ Multivitamins/Vitamin C 10 ml/ Dextrose 1 ,011.2 mls @ 50 mls/hr IV DAILY [facility] Physical Exam - Constitutional Appears: Toxic - Head Exam Head Exam: ATRAUMATIC, NORMAL INSPECTION, NORMOCEPHALIC - Eye Exam Eye Exam: PERRL, Scleral icterus - ENT Exam ENT Exam: Mucous Membranes Dry, Normal External Ear Exam. absent: Normal Oropharynx - Neck Exam Neck exam: Negative for: Lymphadenopathy, Thyromegaly - Respiratory Exam Respiratory Exam: Decreased Breath Sounds, Rhonchi - Cardiovascular Exam Cardiovascular Exam: REGULAR RHYTHM, +S1, +S2 - GI/Abdominal Exam GI & Abdominal Exam: Diminished Bowel Sounds, Distended, Soft. absent: Guarding , Rigid - Rectal Exam Rectal Exam: Deferred - Exam Exam: NORMAL INSPECTION - Extremities Exam Extremities exam: Positive for: pedal edema, pedal pulses present. Negative for : calf tenderness, tenderness - Back Exam Back exam: absent: CVA tenderness (L), CVA tenderness (R) - Neurological Exam Neurological exam: Altered - Psychiatric Exam Psychiatric exam: Depressed - Skin Skin Exam: Dry Results - Vital Signs Recent Vital Signs: Last Vital Signs Temp 97.8 F 10/21/16 16:00 Pulse 130 H 10/21/16 17:00 Resp 24 10/21/16 17:00 BP 107/65 10/21/16 17:00 Pulse Ox 86 L 10/21/16 17:00 - Labs Result Diagrams: 10/21/16 11:04 10/21/16 11:04 Labs: Laboratory Results - last 24 hr 10/21/16 10/21/16 10/21/16 12:14 12:14 15:55 Puncture Site Rna pCO2 61 H pO2 63 L HCO3 14.7 L ABG pH 7.08 L* ABG Total CO2 20.0 L ABG O2 Saturation 88.9 L ABG Base Excess -12.5 L Nicolas Test Pos ABG Potassium 4.1 A-a O2 Difference 574.0 Respiratory Index 9.1 Sodium 134.0 Chloride 106.0 Glucose 97 Lactate 3.1 H Vent Mode Prvc Mechanical Rate 20 FiO2 100.0 Tidal Volume 550 PEEP 6 Crit Value Called To Dr turner Crit Value Called By [facility] Crit Value Read Back Y Blood Gas Notified Time 1600 Arterial Blood Potassium 4.1 Urine Color Bree Urine Clarity Turbid Urine pH 5.0 Ur Specific [place] 1.024 Urine Protein 2+ H Urine Glucose (UA) Normal Urine Ketones Negative Urine Blood 2+ H Urine Nitrate Negative Urine Bilirubin 1+ H Urine Urobilinogen 2.0 Ur Leukocyte Esterase Neg Urine WBC (Auto) 6 H Urine RBC (Auto) 70 H Ur Squamous Epith Cells 8 H Urine Bacteria Many H Hyaline Casts >20 H Urine Opiates Screen Negative Urine Methadone Screen Negative Ur Barbiturates Screen Negative Ur Phencyclidine Scrn Negative Ur Amphetamines Screen Negative U Benzodiazepines Scrn Negative U Oth Cocaine Metabols Negative U Cannabinoids Screen Negative Assessment & Plan (1) Seizure disorder Status: Acute (2) Seizure disorder Status: Acute (3) Sepsis Status: Acute (4) Sepsis Status: Acute (5) Alcohol withdrawal Status: Acute (6) Hypoxemia Status: Acute (7) Pneumonia Status: Acute (8) Respiratory distress Status: Acute (9) Psoriasis Status: Acute - Assessment and Plan (Free Text) Assessment: check cultures of blood urine sputum r/o alcoholic hepatitis/ cirrhosis etoh withdrawl seizures metabolic encepphalopathy dehydration RUPALI pneumonia sepsis Poor prognosis from outset IV antibiotics on board empirically
[2016-10-21] MEDS ORDERED: Propofol 10 mg/ml Inj (20 ML) IV ONE (17:59)
[2016-10-21 18:09] LABS: BASO % 0.2 % (0.0-2.0); EOS # 0.1 K/uL (0.0-0.7); EOS % 1.8 % (0.0-4.0); HEMATOCRIT 34.4 % (35.0-51.0); LYMPH # 0.2 K/uL (1.0-4.3); LYMPH % 3.5 % (20.0-40.0); MEAN CELL VOLUME 99.4 fL (80.0-94.0); MEAN CORPUSCULAR HGB CONC 33.2 g/dL (33.0-37.0); MEAN PLATELET VOLUME 10.1 fL (7.2-11.7); MONO # 0.1 K/uL (0.0-0.8); MONO % 1.8 % (0.0-10.0); NRBC % 0.2 % (0.0-2.0); PLATELET COUNT 52 K/uL (130-400); RED CELL DISTRIBUTION WIDTH 14.9 % (11.5-14.5); WHITE BLOOD COUNT 6.2 K/uL (4.8-10.8)
[2016-10-21 18:17] LABS: POTASSIUM 4.2 mmol/L (3.6-5.2)
[2016-10-21 18:19] LABS: BILIRUBIN,TOTAL 2.6 mg/dL (0.2-1.3)
[2016-10-21 18:20] LABS: ALB/GLOB RATIO 0.7 (1.0-2.1); CALCIUM 6.5 mg/dl (8.6-10.4); MAGNESIUM 1.6 mg/dL (1.6-2.3); PHOSPHOROUS 5.4 mg/dL (2.5-4.5); TOTAL PROTEIN 6.2 g/dL (6.3-8.3)
[2016-10-21 19:25] LABS: METAMYELOCYTE 6 % (0-0); MYELOCYTE 3 % (0-0); NEUTROPHIL 41 % (50-75); TOTAL CELLS COUNTED 100
[2016-10-21] MEDS ORDERED: Midazolam 50 mg/10 ml 100 MG in Dextrose 5% In Water 80 ML IV SCH (20:00)
[2016-10-21 20:06] LABS: ABG ALLEN TEST POS; ABG MECHANICAL RATE 24; ARTERIAL BLOOD GAS MODE PRVC; ARTERIAL BLOOD HGB O2 SAT 88.4 % (95.0-98.0); ATERIAL BLOOD GAS PEEP 6; CARBOXYHEMOGLOBIN 1.6 % (0.5-1.5); DRAW SITE RBA; HHB 8.9 % (0.0-5.0)
[2016-10-22] MEDS: Propofol 10 mg/ml 1,000 MG/100 ML VIAL IV PRN (05:08)
[2016-10-22 05:41] LABS: ABG ALLEN TEST POS; ABG MECHANICAL RATE 24; ARTERIAL BLOOD GAS MODE A/C; ATERIAL BLOOD GAS PEEP 6; CARBOXYHEMOGLOBIN 1.3 % (0.5-1.5); DRAW SITE RR; HHB 8.1 % (0.0-5.0); METHEMOGLOBIN 1.5 % (0.0-3.0)
[2016-10-22 06:39] LABS: EOS % 0.5 % (0.0-4.0); HEMATOCRIT 32.2 % (35.0-51.0); LYMPH # 0.2 K/uL (1.0-4.3); LYMPH % 3.9 % (20.0-40.0); MEAN CELL VOLUME 99.7 fL (80.0-94.0); MEAN CORPUSCULAR HEMOGLOBIN 33.5 pg (27.0-31.0); MEAN CORPUSCULAR HGB CONC 33.6 g/dL (33.0-37.0); MEAN PLATELET VOLUME 10.1 fL (7.2-11.7); MONO # 0.2 K/uL (0.0-0.8); MONO % 3.3 % (0.0-10.0); NRBC % 0.1 % (0.0-2.0); PLATELET COUNT 43 K/uL (130-400); WHITE BLOOD COUNT 5.9 K/uL (4.8-10.8)
[2016-10-22 06:58] LABS: ALB/GLOB RATIO 0.8 (1.0-2.1); BILIRUBIN,TOTAL 2.8 mg/dL (0.2-1.3); CALCIUM 6.7 mg/dl (8.6-10.4); MAGNESIUM 1.7 mg/dL (1.6-2.3); PHOSPHOROUS 5.7 mg/dL (2.5-4.5); POTASSIUM 3.7 mmol/L (3.6-5.2); TOTAL PROTEIN 5.8 g/dL (6.3-8.3)
[2016-10-22] MEDS ORDERED: Folic Acid 1 MG, Thiamine 100 MG, Multivitamin (MVI) 10 ML in Dextrose 5% In Water 1,00... IV SCH ×2 (07:00→16:00)
[2016-10-22 07:01] LABS: VANCOMYCIN RANDOM 12.07 ug/mL
[2016-10-22] MEDS: Piperacill/Tazo 2.25gm in Dex 2.25 GM/50 ML BAG IVPB SCH (07:35)
[2016-10-22 08:38] LABS: NEUTROPHIL 44 % (50-75); NUCLEATED RED BLOOD CELL 1 % (0-0); TOTAL CELLS COUNTED 100
[2016-10-22 11:49] LABS: ABG ALLEN TEST POS; ABG MECHANICAL RATE 24; ATERIAL BLOOD GAS PEEP 10; DRAW SITE RRA
--- NOTE | 2016-10-22 11:56 | RAD ---
Chest x-ray single frontal view History: Intubated. Comparison: 10/21/2016 Findings: Lines and tubes in stable position. Persistent dense confluent opacification of the right midlung zone extending into the right hilar region. Persistent diffuse opacification of the left bonita thorax with small to moderate left pleural effusion. Cardiomegaly. Degenerative changes in the spine and shoulders. Impression: No significant interval change.
[2016-10-22] MEDS ORDERED: Vancomycin 1 gm/NS 200 ml 1 GM/200 ML BAG IVPB ONE (12:00)
[2016-10-22] MEDS: Sodium Chloride 0.9% 1,000 ML IV SCH (12:12)
[2016-10-22] MEDS: Ammonium Lactate 12% Lotion (225 g) EXT SCH ×2 (12:45→18:11)
[2016-10-22] MEDS: cefTRIAXone 2 GM in Sodium Chloride 0.9% 100 ML IVPB SCH (13:15)
--- NOTE | 2016-10-22 13:35 | CP.CCUPN ---
<Simran Wilde - Last Filed: 10/22/16 16:39> CCU Subjective - Physician Review Subjective (Free Text): 10/22/16 16:39 Patient was seen and examined at bedside in the AM. Patient is intubated and sedated. CCU Objective - Vital Signs / Intake & Output Vital Signs (Last 4 hours): Vital Signs Pulse Resp BP Pulse Ox 10/22/16 12:01 123 H 27 H 126/87 86 L 10/22/16 12:00 123 H 22 85 L 10/22/16 11:30 120 H 28 H 91 L 10/22/16 11:00 115 H 28 H 110/77 90 L 10/22/16 10:30 111 H 24 90 L 10/22/16 10:21 111 H 24 97/58 L 90 L 10/22/16 10:00 113 H 24 88/59 L 90 L Intake and Output (Last 8hrs): Intake & Output 10/21/16 10/22/16 10/22/16 22:59 06:59 14:59 Intake Total 1781.5 1420.2 376.0 Output Total 70 50 825 Balance 1711.5 1370.2 -449.0 Intake: IV 250 200 80 Intake, IV Amount 1531.5 1220.2 296.0 Left Forearm 225 Right Antecubital 151.0 179.2 65.0 Right Internal Jugular 325 Right Proximal Port 675 600 75 Internal Jugular Right jugular TLC distal 5.5 16 6 port Right jugular TLC medial 150 425 150 port Output: Drainage 800 oral 800 Urine 70 50 25 Urethral (Garcia) 70 50 25 Other: # Bowel Movements 0 0 0 - Physical Exam Physical Exam Limitations: Positive for: Other (Patient is intubated ) Head: Positive for: Atraumatic, Normocephalic Cardiovascular: Positive for: Normal S1, S2, Tachycardic Abdomen: Positive for: Distention, Normal Bowel Sounds Upper Extremity: Negative for: Edema Lower Extremity: Negative for: Edema Neurological: Negative for: GCS=15 Skin: Positive for: Other (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, bilateral upper extremities, and in gluteal fold.) Psychiatric: Negative for: Alert (alert when sedation is decreased) - Medications Active Medications: Active Medications Generic Name Dose Route Start Last Admin Trade Name Freq PRN Reason Stop Dose Admin Albuterol Sulfate 1.25 mg 10/22/16 14:00 Albuterol 0.042% Inhal Nikky (1.25mg/3ml) Ud INH RQ6 MIRA Famotidine 20 mg 10/21/16 14:30 10/21/16 14:36 Pepcid IVP 20 mg DAILY MIRA Administration Dopamine HCl/Dextrose 400 mg in 250 mls @ 5.613 mls/hr 10/21/16 13:30 15:00 Dopamine 400mg/250ml D5w IV 0 mcg/kg/min .Q24H PRN 0 mls/hr TITRATE PER MD ORDER Titration Protocol 2 MCG/KG/MIN Propofol 1,000 mg in 100 mls @ 2.245 mls/hr 10/21/16 14:16 10/22/16 11:15 Diprivan IV 0 mcg/kg/min .Q24H PRN 0 mls/hr Agitation Titration Protocol 5 MCG/KG/MIN Midazolam HCl 100 mg/ Dextrose 100 mls @ 1.49 mls/hr 10/21/16 20:00 10/21/16 21:08 IV 0.02 mg/kg/hr .Q24H MIRA 2 mls/hr Protocol Titration 0.02 MG/KG/HR Ceftriaxone Sodium 2 gm/ 100 mls @ 100 mls/hr 10/22/16 13:00 Sodium Chloride IVPB Q12H MIRA Sodium Chloride 1,000 mls @ 75 mls/hr 10/22/16 11:30 Sodium Chloride 0.9% IV .[id number] MIRA Folic Acid 1 mg/ Thiamine HCl 1,011.2 mls @ 75 mls/hr 10/22/16 16:00 100 mg/ Multivitamins/Vitamin IV C 10 ml/ Dextrose DAILY@1600 MIRA Lactic Acid 0 gm 10/22/16 13:00 Lac-Hydrin 12% Lotion (225 G) EXT BID MIRA Lorazepam 1 mg 10/21/16 19:15 10/21/16 20:07 Ativan IVP 1 mg Q6H PRN Administration Agitation - Patient Studies Lab Studies: Microbiology Studies 10/21/16 Unknown Gram Stain - Final Trachasp Sputum Culture - Preliminary No growth. 10/21/16 14:00 Blood Culture - Preliminary Blood Gram Positive Cocci Gram Stain - Final Lab Studies 10/22/16 10/22/16 10/22/16 Range/Units 11:44 06:31 06:31 WBC (4.8-10.8) K/uL RBC (4.40-5.90) Mil/uL Hgb (12.0-18.0) g/dL Hct (35.0-51.0) % MCV (80.0-94.0) fL MCH (27.0-31.0) pg MCHC (33.0-37.0) g/dL RDW (11.5-14.5) % Plt Count (130-400) K/uL MPV (7.2-11.7) fL Neut % (Auto) (50.0-75.0) % Lymph % (Auto) (20.0-40.0) % Tillman % (Auto) (0.0-10.0) % Eos % (Auto) (0.0-4.0) % Baso % (Auto) (0.0-2.0) % Neut # (1.8-7.0) K/uL Lymph # (1.0-4.3) K/uL Tillman # (0.0-0.8) K/uL Eos # (0.0-0.7) K/uL Baso # (0.0-0.2) K/uL Neutrophils % (Manual) (50-75) % Band Neutrophils % (0-2) % Lymphocytes % (Manual) (20-40) % Monocytes % (Manual) (0-10) % Metamyelocytes % (0-0) % Myelocytes % (0-0) % Nucleated RBC % (0-0) % Platelet Estimate (NORMAL) Hypochromasia (manual) Poikilocytosis (manual Anisocytosis (manual) Tear Drop Cells [place] Cells Puncture Site Rra pCO2 34 L (35-45) mm/Hg pO2 55 L (80-100) mm/Hg HCO3 23.4 (21-28) mmol/L ABG pH 7.42 (7.35-7.45) ABG Total CO2 23.1 (22-28) mmol/L ABG O2 Saturation 93.9 L (95-98) % ABG Base Excess -1.7 (-2.0-3.0) mmol/L ABG Hemoglobin (11.7-17.4) g/dL ABG Carboxyhemoglobin (0.5-1.5) % POC ABG HHb (Measured) (0.0-5.0) % ABG Methemoglobin (0.0-3.0) % Nicolas Test Pos ABG Potassium 4.4 (3.6-5.2) mmol/L A-a O2 Difference 616.0 mm/Hg Respiratory Index 11.2 Hgb O2 Saturation (95.0-98.0) % Sodium 137.0 (132-148) mmol/l Chloride 105.0 (98-107) mmol/L Glucose 90 (75-110) mg/dl Lactate 2.1 (0.7-2.1) mmol/L Vent Mode Mechanical Rate 24 FiO2 100.0 % Tidal Volume 500 PEEP 10 Crit Value Called To Crit Value Called By Crit Value Read Back Blood Gas Notified Time Potassium (3.6-5.2) mmol/L Carbon Dioxide (22-30) mmol/L Anion Gap (10-20) BUN (9-20) mg/dL Creatinine (0.8-1.5) MG/DL Est GFR ( Amer) Est GFR (Non-Af Amer) Random Glucose (75-110) mg/dL Calcium (8.6-10.4) mg/dl Phosphorus (2.5-4.5) mg/dL Magnesium (1.6-2.3) mg/dL Total Bilirubin (0.2-1.3) mg/dL AST (17-59) U/L ALT (21-72) U/L Alkaline Phosphatase (38-126) U/L Ammonia (9-33) umol/L Total Protein (6.3-8.3) g/dL Albumin (3.5-5.0) g/dL Globulin (2.2-3.9) gm/dL Albumin/Globulin Ratio (1.0-2.1) Procalcitonin (0.19-0.49) NG/ML Arterial Blood Potassium 4.4 (3.6-5.2) mmol/L Random Vancomycin 12.07 ug/mL Hepatitis A IgM Ab Negative (NEGATIVE) Hep Bs Antigen Negative (NEGATIVE) Hep B Core IgM Ab Negative (NEGATIVE) Hepatitis C Antibody Negative (NEGATIVE) HIV 1&2 Antibody Screen Negative (NEGATIVE) 10/22/16 10/22/16 10/22/16 Range/Units 06:31 06:31 06:31 WBC 5.9 (4.8-10.8) K/uL RBC 3.23 L (4.40-5.90) Mil/uL Hgb 10.8 L (12.0-18.0) g/dL Hct 32.2 L (35.0-51.0) % MCV 99.7 H (80.0-94.0) fL MCH 33.5 H (27.0-31.0) pg MCHC 33.6 (33.0-37.0) g/dL RDW 15.0 H (11.5-14.5) % Plt Count 43 L (130-400) K/uL MPV 10.1 (7.2-11.7) fL Neut % (Auto) 92.3 H (50.0-75.0) % Lymph % (Auto) 3.9 L (20.0-40.0) % Tillman % (Auto) 3.3 (0.0-10.0) % Eos % (Auto) 0.5 (0.0-4.0) % Baso % (Auto) 0.0 (0.0-2.0) % Neut # 5.4 (1.8-7.0) K/uL Lymph # 0.2 L (1.0-4.3) K/uL Tillman # 0.2 (0.0-0.8) K/uL Eos # 0.0 (0.0-0.7) K/uL Baso # 0.0 (0.0-0.2) K/uL Neutrophils % (Manual) 44 L (50-75) % Band Neutrophils % 49 H* (0-2) % Lymphocytes % (Manual) 2 L (20-40) % Monocytes % (Manual) 5 (0-10) % Metamyelocytes % (0-0) % Myelocytes % (0-0) % Nucleated RBC % 1 H (0-0) % Platelet Estimate Decreased L (NORMAL) Hypochromasia (manual) Slight Poikilocytosis (manual Slight Anisocytosis (manual) Slight Tear Drop Cells Slight Ja Cells Slight Puncture Site pCO2 (35-45) mm/Hg pO2 (80-100) mm/Hg HCO3 (21-28) mmol/L ABG pH (7.35-7.45) ABG Total CO2 (22-28) mmol/L ABG O2 Saturation (95-98) % ABG Base Excess (-2.0-3.0) mmol/L ABG Hemoglobin (11.7-17.4) g/dL ABG Carboxyhemoglobin (0.5-1.5) % POC ABG HHb (Measured) (0.0-5.0) % ABG Methemoglobin (0.0-3.0) % Nicolas Test ABG Potassium (3.6-5.2) mmol/L A-a O2 Difference mm/Hg Respiratory Index Hgb O2 Saturation (95.0-98.0) % Sodium 133 (132-148) mmol/l Chloride 97 L (98-107) mmol/L Glucose (75-110) mg/dl Lactate (0.7-2.1) mmol/L Vent Mode Mechanical Rate FiO2 % Tidal Volume PEEP Crit Value Called To Crit Value Called By Crit Value Read Back Blood Gas Notified Time Potassium 3.7 (3.6-5.2) mmol/L Carbon Dioxide 21 L (22-30) mmol/L Anion Gap 19 (10-20) BUN 42 H (9-20) mg/dL Creatinine 3.0 H (0.8-1.5) MG/DL Est GFR ( Amer) 27 Est GFR (Non-Af Amer) 23 Random Glucose 87 (75-110) mg/dL Calcium 6.7 L (8.6-10.4) mg/dl Phosphorus 5.7 H (2.5-4.5) mg/dL Magnesium 1.7 (1.6-2.3) mg/dL Total Bilirubin 2.8 H (0.2-1.3) mg/dL AST 145 H D (17-59) U/L ALT 62 (21-72) U/L Alkaline Phosphatase 30 L D (38-126) U/L Ammonia 51 H (9-33) umol/L Total Protein 5.8 L (6.3-8.3) g/dL Albumin 2.5 L (3.5-5.0) g/dL Globulin 3.3 (2.2-3.9) gm/dL Albumin/Globulin Ratio 0.8 L (1.0-2.1) Procalcitonin (0.19-0.49) NG/ML Arterial Blood Potassium (3.6-5.2) mmol/L Random Vancomycin ug/mL Hepatitis A IgM Ab (NEGATIVE) Hep Bs Antigen (NEGATIVE) Hep B Core IgM Ab (NEGATIVE) Hepatitis C Antibody (NEGATIVE) HIV 1&2 Antibody Screen (NEGATIVE) 10/22/16 10/22/16 10/21/16 Range/Units 06:31 05:26 20:00 WBC (4.8-10.8) K/uL RBC (4.40-5.90) Mil/uL Hgb (12.0-18.0) g/dL Hct (35.0-51.0) % MCV (80.0-94.0) fL MCH (27.0-31.0) pg MCHC (33.0-37.0) g/dL RDW (11.5-14.5) % Plt Count (130-400) K/uL MPV (7.2-11.7) fL Neut % (Auto) (50.0-75.0) % Lymph % (Auto) (20.0-40.0) % Tillman % (Auto) (0.0-10.0) % Eos % (Auto) (0.0-4.0) % Baso % (Auto) (0.0-2.0) % Neut # (1.8-7.0) K/uL Lymph # (1.0-4.3) K/uL Tillman # (0.0-0.8) K/uL Eos # (0.0-0.7) K/uL Baso # (0.0-0.2) K/uL Neutrophils % (Manual) (50-75) % Band Neutrophils % (0-2) % Lymphocytes % (Manual) (20-40) % Monocytes % (Manual) (0-10) % Metamyelocytes % (0-0) % Myelocytes % (0-0) % Nucleated RBC % (0-0) % Platelet Estimate (NORMAL) Hypochromasia (manual) Poikilocytosis (manual Anisocytosis (manual) Tear Drop Cells Ja Cells Puncture Site Rr Rba pCO2 42 38 (35-45) mm/Hg pO2 54 L 54 L (80-100) mm/Hg HCO3 22.4 18.7 L (21-28) mmol/L ABG pH 7.34 L 7.29 L (7.35-7.45) ABG Total CO2 24.0 19.5 L (22-28) mmol/L ABG O2 Saturation 91.7 L 90.9 L (95-98) % ABG Base Excess -3.0 L -7.7 L (-2.0-3.0) mmol/L ABG Hemoglobin 10.7 L 11.4 L (11.7-17.4) g/dL ABG Carboxyhemoglobin 1.3 1.6 H (0.5-1.5) % POC ABG HHb (Measured) 8.1 H 8.9 H (0.0-5.0) % ABG Methemoglobin 1.5 1.0 (0.0-3.0) % Nicolas Test Pos Pos ABG Potassium (3.6-5.2) mmol/L A-a O2 Difference 600.0 612.0 mm/Hg Respiratory Index 10.3 11.3 Hgb O2 Saturation 89.0 L 88.4 L (95.0-98.0) % Sodium (132-148) mmol/l Chloride (98-107) mmol/L Glucose (75-110) mg/dl Lactate (0.7-2.1) mmol/L Vent Mode A/c Prvc Mechanical Rate 24 24 FiO2 100.0 100.0 % Tidal Volume 500 600 PEEP 6 6 Crit Value Called To Crit Value Called By Crit Value Read Back Blood Gas Notified Time Potassium (3.6-5.2) mmol/L Carbon Dioxide (22-30) mmol/L Anion Gap (10-20) BUN (9-20) mg/dL Creatinine (0.8-1.5) MG/DL Est GFR ( Amer) Est GFR (Non-Af Amer) Random Glucose (75-110) mg/dL Calcium (8.6-10.4) mg/dl Phosphorus (2.5-4.5) mg/dL Magnesium (1.6-2.3) mg/dL Total Bilirubin (0.2-1.3) mg/dL AST (17-59) U/L ALT (21-72) U/L Alkaline Phosphatase (38-126) U/L Ammonia (9-33) umol/L Total Protein (6.3-8.3) g/dL Albumin (3.5-5.0) g/dL Globulin (2.2-3.9) gm/dL Albumin/Globulin Ratio (1.0-2.1) Procalcitonin 143.18 H (0.19-0.49) NG/ML Arterial Blood Potassium (3.6-5.2) mmol/L Random Vancomycin ug/mL Hepatitis A IgM Ab (NEGATIVE) Hep Bs Antigen (NEGATIVE) Hep B Core IgM Ab (NEGATIVE) Hepatitis C Antibody (NEGATIVE) HIV 1&2 Antibody Screen (NEGATIVE) 10/21/16 10/21/16 10/21/16 Range/Units 18:06 18:06 15:55 WBC 6.2 (4.8-10.8) K/uL RBC 3.46 L (4.40-5.90) Mil/uL Hgb 11.4 L (12.0-18.0) g/dL Hct 34.4 L (35.0-51.0) % MCV 99.4 H (80.0-94.0) fL MCH 33.0 H (27.0-31.0) pg MCHC 33.2 (33.0-37.0) g/dL RDW 14.9 H (11.5-14.5) % Plt Count 52 L (130-400) K/uL MPV 10.1 (7.2-11.7) fL Neut % (Auto) 92.7 H (50.0-75.0) % Lymph % (Auto) 3.5 L (20.0-40.0) % Tillman % (Auto) 1.8 (0.0-10.0) % Eos % (Auto) 1.8 (0.0-4.0) % Baso % (Auto) 0.2 (0.0-2.0) % Neut # 5.8 (1.8-7.0) K/uL Lymph # 0.2 L (1.0-4.3) K/uL Tillman # 0.1 (0.0-0.8) K/uL Eos # 0.1 (0.0-0.7) K/uL Baso # 0.0 (0.0-0.2) K/uL Neutrophils % (Manual) 41 L (50-75) % Band Neutrophils % 43 H* (0-2) % Lymphocytes % (Manual) 6 L (20-40) % Monocytes % (Manual) 1 (0-10) % Metamyelocytes % 6 H (0-0) % Myelocytes % 3 H (0-0) % Nucleated RBC % (0-0) % Platelet Estimate Decreased L (NORMAL) Hypochromasia (manual) Poikilocytosis (manual Anisocytosis (manual) Tear Drop Cells Ja Cells Puncture Site Rna pCO2 61 H (35-45) mm/Hg pO2 63 L (80-100) mm/Hg HCO3 14.7 L (21-28) mmol/L ABG pH 7.08 L* (7.35-7.45) ABG Total CO2 20.0 L (22-28) mmol/L ABG O2 Saturation 88.9 L (95-98) % ABG Base Excess -12.5 L (-2.0-3.0) mmol/L ABG Hemoglobin (11.7-17.4) g/dL ABG Carboxyhemoglobin (0.5-1.5) % POC ABG HHb (Measured) (0.0-5.0) % ABG Methemoglobin (0.0-3.0) % Nicolas Test Pos ABG Potassium 4.1 (3.6-5.2) mmol/L A-a O2 Difference 574.0 mm/Hg Respiratory Index 9.1 Hgb O2 Saturation (95.0-98.0) % Sodium 133 134.0 (132-148) mmol/l Chloride 101 106.0 (98-107) mmol/L Glucose 97 (75-110) mg/dl Lactate 3.1 H (0.7-2.1) mmol/L Vent Mode Prvc Mechanical Rate 20 FiO2 100.0 % Tidal Volume 550 PEEP 6 Crit Value Called To Dr turner Crit Value Called By [facility] Crit Value Read Back Y Blood Gas Notified Time 1600 Potassium 4.2 (3.6-5.2) mmol/L Carbon Dioxide 19 L (22-30) mmol/L Anion Gap 17 (10-20) BUN 27 H (9-20) mg/dL Creatinine 1.9 H (0.8-1.5) MG/DL Est GFR ( Amer) 46 Est GFR (Non-Af Amer) 38 Random Glucose 90 (75-110) mg/dL Calcium 6.5 L (8.6-10.4) mg/dl Phosphorus 5.4 H (2.5-4.5) mg/dL Magnesium 1.6 (1.6-2.3) mg/dL Total Bilirubin 2.6 H (0.2-1.3) mg/dL AST 91 H D (17-59) U/L ALT 50 (21-72) U/L Alkaline Phosphatase 46 (38-126) U/L Ammonia (9-33) umol/L Total Protein 6.2 L (6.3-8.3) g/dL Albumin 2.5 L D (3.5-5.0) g/dL Globulin 3.7 (2.2-3.9) gm/dL Albumin/Globulin Ratio 0.7 L (1.0-2.1) Procalcitonin (0.19-0.49) NG/ML Arterial Blood Potassium 4.1 (3.6-5.2) mmol/L Random Vancomycin ug/mL Hepatitis A IgM Ab (NEGATIVE) Hep Bs Antigen (NEGATIVE) Hep B Core IgM Ab (NEGATIVE) Hepatitis C Antibody (NEGATIVE) HIV 1&2 Antibody Screen (NEGATIVE) Laboratory Results - last 24 hr 10/21/16 10/21/16 10/21/16 15:55 18:06 18:06 WBC 6.2 RBC 3.46 L Hgb 11.4 L Hct 34.4 L MCV 99.4 H MCH 33.0 H MCHC 33.2 RDW 14.9 H Plt Count 52 L MPV 10.1 Neut % (Auto) 92.7 H Lymph % (Auto) 3.5 L Tillman % (Auto) 1.8 Eos % (Auto) 1.8 Baso % (Auto) 0.2 Neut # 5.8 Lymph # 0.2 L Tillman # 0.1 Eos # 0.1 Baso # 0.0 Neutrophils % (Manual) 41 L Band Neutrophils % 43 H* Lymphocytes % (Manual) 6 L Monocytes % (Manual) 1 Metamyelocytes % 6 H Myelocytes % 3 H Nucleated RBC % Platelet Estimate Decreased L Hypochromasia (manual) Poikilocytosis (manual Anisocytosis (manual) Tear Drop Cells [place] Cells Puncture Site Rna pCO2 61 H pO2 63 L HCO3 14.7 L ABG pH 7.08 L* ABG Total CO2 20.0 L ABG O2 Saturation 88.9 L ABG Base Excess -12.5 L ABG Hemoglobin ABG Carboxyhemoglobin POC ABG HHb (Measured) ABG Methemoglobin Nicolas Test Pos ABG Potassium 4.1 A-a O2 Difference 574.0 Respiratory Index 9.1 Hgb O2 Saturation Sodium 134.0 133 Chloride 106.0 101 Glucose 97 Lactate 3.1 H Vent Mode Prvc Mechanical Rate 20 FiO2 100.0 Tidal Volume 550 PEEP 6 Crit Value Called To Dr turner Crit Value Called By [facility] Crit Value Read Back Y Blood Gas Notified Time 1600 Potassium 4.2 Carbon Dioxide 19 L Anion Gap 17 BUN 27 H Creatinine 1.9 H Est GFR ( Amer) 46 Est GFR (Non-Af Amer) 38 Random Glucose 90 Calcium 6.5 L Phosphorus 5.4 H Magnesium 1.6 Total Bilirubin 2.6 H AST 91 H D ALT 50 Alkaline Phosphatase 46 Ammonia Total Protein 6.2 L Albumin 2.5 L D Globulin 3.7 Albumin/Globulin Ratio 0.7 L Procalcitonin Arterial Blood Potassium 4.1 Random Vancomycin Hepatitis A IgM Ab Hep Bs Antigen Hep B Core IgM Ab Hepatitis C Antibody HIV 1&2 Antibody Screen 10/21/16 10/22/16 10/22/16 20:00 05:26 06:31 WBC RBC Hgb Hct MCV MCH MCHC RDW Plt Count MPV Neut % (Auto) Lymph % (Auto) Tillman % (Auto) Eos % (Auto) Baso % (Auto) Neut # Lymph # Tillman # Eos # Baso # Neutrophils % (Manual) Band Neutrophils % Lymphocytes % (Manual) Monocytes % (Manual) Metamyelocytes % Myelocytes % Nucleated RBC % Platelet Estimate Hypochromasia (manual) Poikilocytosis (manual Anisocytosis (manual) Tear Drop Cells Ja Cells Puncture Site Rba Rr pCO2 38 42 pO2 54 L 54 L HCO3 18.7 L 22.4 ABG pH 7.29 L 7.34 L ABG Total CO2 19.5 L 24.0 ABG O2 Saturation 90.9 L 91.7 L ABG Base Excess -7.7 L -3.0 L ABG Hemoglobin 11.4 L 10.7 L ABG Carboxyhemoglobin 1.6 H 1.3 POC ABG HHb (Measured) 8.9 H 8.1 H ABG Methemoglobin 1.0 1.5 Nicolas Test Pos Pos ABG Potassium A-a O2 Difference 612.0 600.0 Respiratory Index 11.3 10.3 Hgb O2 Saturation 88.4 L 89.0 L Sodium Chloride Glucose Lactate Vent Mode Prvc A/c Mechanical Rate 24 24 FiO2 100.0 100.0 Tidal Volume 600 500 PEEP 6 6 Crit Value Called To Crit Value Called By Crit Value Read Back Blood Gas Notified Time Potassium Carbon Dioxide Anion Gap BUN Creatinine Est GFR ( Amer) Est GFR (Non-Af Amer) Random Glucose Calcium Phosphorus Magnesium Total Bilirubin AST ALT Alkaline Phosphatase Ammonia Total Protein Albumin Globulin Albumin/Globulin Ratio Procalcitonin 143.18 H Arterial Blood Potassium Random Vancomycin Hepatitis A IgM Ab Hep Bs Antigen Hep B Core IgM Ab Hepatitis C Antibody HIV 1&2 Antibody Screen 10/22/16 10/22/16 10/22/16 06:31 06:31 06:31 WBC 5.9 RBC 3.23 L Hgb 10.8 L Hct 32.2 L MCV 99.7 H MCH 33.5 H MCHC 33.6 RDW 15.0 H Plt Count 43 L MPV 10.1 Neut % (Auto) 92.3 H Lymph % (Auto) 3.9 L Tillman % (Auto) 3.3 Eos % (Auto) 0.5 Baso % (Auto) 0.0 Neut # 5.4 Lymph # 0.2 L Tillman # 0.2 Eos # 0.0 Baso # 0.0 Neutrophils % (Manual) 44 L Band Neutrophils % 49 H* Lymphocytes % (Manual) 2 L Monocytes % (Manual) 5 Metamyelocytes % Myelocytes % Nucleated RBC % 1 H Platelet Estimate Decreased L Hypochromasia (manual) Slight Poikilocytosis (manual Slight Anisocytosis (manual) Slight Tear Drop Cells Slight Ja Cells Slight Puncture Site pCO2 pO2 HCO3 ABG pH ABG Total CO2 ABG O2 Saturation ABG Base Excess ABG Hemoglobin ABG Carboxyhemoglobin POC ABG HHb (Measured) ABG Methemoglobin Nicolas Test ABG Potassium A-a O2 Difference Respiratory Index Hgb O2 Saturation Sodium 133 Chloride 97 L Glucose Lactate Vent Mode Mechanical Rate FiO2 Tidal Volume PEEP Crit Value Called To Crit Value Called By Crit Value Read Back Blood Gas Notified Time Potassium 3.7 Carbon Dioxide 21 L Anion Gap 19 BUN 42 H Creatinine 3.0 H Est GFR ( Amer) 27 Est GFR (Non-Af Amer) 23 Random Glucose 87 Calcium 6.7 L Phosphorus 5.7 H Magnesium 1.7 Total Bilirubin 2.8 H AST 145 H D ALT 62 Alkaline Phosphatase 30 L D Ammonia 51 H Total Protein 5.8 L Albumin 2.5 L Globulin 3.3 Albumin/Globulin Ratio 0.8 L Procalcitonin Arterial Blood Potassium Random Vancomycin Hepatitis A IgM Ab Hep Bs Antigen Hep B Core IgM Ab Hepatitis C Antibody HIV 1&2 Antibody Screen 10/22/16 10/22/16 10/22/16 06:31 06:31 11:44 WBC RBC Hgb Hct MCV MCH MCHC RDW Plt Count MPV Neut % (Auto) Lymph % (Auto) Tillman % (Auto) Eos % (Auto) Baso % (Auto) Neut # Lymph # Tillman # Eos # Baso # Neutrophils % (Manual) Band Neutrophils % Lymphocytes % (Manual) Monocytes % (Manual) Metamyelocytes % Myelocytes % Nucleated RBC % Platelet Estimate Hypochromasia (manual) Poikilocytosis (manual Anisocytosis (manual) Tear Drop Cells [place] Cells Puncture Site Rra pCO2 34 L pO2 55 L HCO3 23.4 ABG pH 7.42 ABG Total CO2 23.1 ABG O2 Saturation 93.9 L ABG Base Excess -1.7 ABG Hemoglobin ABG Carboxyhemoglobin POC ABG HHb (Measured) ABG Methemoglobin Nicolas Test Pos ABG Potassium 4.4 A-a O2 Difference 616.0 Respiratory Index 11.2 Hgb O2 Saturation Sodium 137.0 Chloride 105.0 Glucose 90 Lactate 2.1 Vent Mode Mechanical Rate 24 FiO2 100.0 Tidal Volume 500 PEEP 10 Crit Value Called To Crit Value Called By Crit Value Read Back Blood Gas Notified Time Potassium Carbon Dioxide Anion Gap BUN Creatinine Est GFR ( Amer) Est GFR (Non-Af Amer) Random Glucose Calcium Phosphorus Magnesium Total Bilirubin AST ALT Alkaline Phosphatase Ammonia Total Protein Albumin Globulin Albumin/Globulin Ratio Procalcitonin Arterial Blood Potassium 4.4 Random Vancomycin 12.07 Hepatitis A IgM Ab Negative Hep Bs Antigen Negative Hep B Core IgM Ab Negative Hepatitis C Antibody Negative HIV 1&2 Antibody Screen Negative Review of Systems - Review of Systems Systems not reviewed;Unavailable: Intubated Assessment/Plan (1) Alcohol withdrawal Assessment and plan: 45 year old male who presented to the ED with complaint of worsening cough, abdominal pain for seven days. Neuro: - Chronic alcohol abuse - Sedated - Propofol: discontinued 10/22 - 0.5 Klonopin 0.5mg - Intubated - CT of head (10/22): no acute intracranial hemorrhage identified. Near complete opacification of the left maxillary sinus; correlate clinically for sinusitis. 1.2x2.8 cm heterogenous partially calcified subcutaneous mass along the posterior left scalp. Soft tissue nodule, right scalp measures approximately 10mm. - Neurology Consult: Dr. Pineda --> help appreciated - Folic Acid, Thamine, Multivitamin IV daily in 5% Dextrose Pulm: - Intubated - Chest X-ray (10/21): Persistent dense opacity in the right upper and mid lung could represent consolidation, underlying mass could no be excluded. Also suspected is developing pulmonary edema in the left lung, bilateral pulmonary venous congestion and interstitial pulmonary edema. The right IJV line terminates in the SVC. No pneumothorax. - Sodium Bicarb Drip - discontinued - pH: 7.42 - Lactate: 2.1 CV: - Monitor Heme: - H/H (10/22): 10.8/32.2; H/H (10/21): 11.4/34.4 - PT/INR: 18.5/1.6 - Platelets (10/22): 43; Platelets (10/21): 52 Renal: - BUN/Cr (10/22): 42/3.0; BUN/Cr (10/21): 27/1.9 - Garcia placed 10/21 - Monitor Endo: - Monitor - No acute issues GI: - NPO - AST/ALT: 91/50 - Monitor ID: - Sepsis due to Pneumonia - f/u blood culture: gram positive cocci (preliminary) - urine culture- no growth - f/u sputum culture : preliminary shows no growth - Zosyn stopped 10/22 - Ceftriaxone started 10/22 - Vanco started 10/22 - ID Consult: Dr. Bowers --> help appreciated DVT proph - SCDs; contraindication of VTE due to low platelets GI proph - Pepcid 20mg PO Daily Code status - full code Case discussed with Dr. Patti Wilde PGY-1 Current Visit: Yes Status: Acute Priority: High (2) Sepsis Current Visit: Yes Status: Acute Priority: High (3) Thrombocythemia Current Visit: Yes Status: Chronic (4) Transaminitis Current Visit: Yes Status: Acute <Nitish Armstrong - Last Filed: 10/22/16 17:22> CCU Subjective - Physician Review Events Since Last Encounter (Free Text): 10/22/16 17:14 I have seen and examined the patient. Medical records, lab studies, and imaging were reviewed by me and a management plan was formulated on multidisciplinary rounds with resident Dr. Wilde. I agree with their above documented assessment and plan. Lightening sedation, to prn pushes with basal Klonopin, Critical Care Time 35 minutes. Multi-disciplinary rounds were performed with house staff, nursing, speech therapy, respiratory therapy, pharmacy and nutrition with integrated input from the primary team/attending and other consulting services. The documented time is cumulative and includes review of patient data/exams/labs/chart review and examination of the patient on rounds and throughout the day; time is exclusive of any procedures or teaching time. CCU Objective - Vital Signs / Intake & Output Intake and Output (Last 8hrs): Intake & Output 10/22/16 10/22/16 10/22/16 06:59 14:59 22:59 Intake Total 1420.2 376.0 Output Total 50 825 Balance 1370.2 -449.0 Intake: IV 200 80 Intake, IV Amount 1220.2 296.0 Right Antecubital 179.2 65.0 Right Proximal Port 600 75 Internal Jugular Right jugular TLC distal 16 6 port Right jugular TLC medial 425 150 port Output: Drainage 800 oral 800 Urine 50 25 Urethral (Garcia) 50 25 Other: # Bowel Movements 0 0 - Medications Active Medications: Active Medications Generic Name Dose Route Start Last Admin Trade Name Freq PRN Reason Stop Dose Admin Albuterol Sulfate 1.25 mg 10/22/16 14:00 Albuterol 0.042% Inhal Nikky (1.25mg/3ml) Ud INH RQ6 MIRA Clonazepam 0.5 mg 10/22/16 16:34 Klonopin NG Q12H PRN Restlessness Famotidine 20 mg 10/21/16 14:30 10/21/16 14:36 Pepcid IVP 20 mg DAILY MIRA Administration Dopamine HCl/Dextrose 400 mg in 250 mls @ 5.613 mls/hr 10/21/16 13:30 15:00 Dopamine 400mg/250ml D5w IV 0 mcg/kg/min .Q24H PRN 0 mls/hr TITRATE PER MD ORDER Titration Protocol 2 MCG/KG/MIN Propofol 1,000 mg in 100 mls @ 2.245 mls/hr 10/21/16 14:16 10/22/16 11:15 Diprivan IV 0 mcg/kg/min .Q24H PRN 0 mls/hr Agitation Titration Protocol 5 MCG/KG/MIN Midazolam HCl 100 mg/ Dextrose 100 mls @ 1.49 mls/hr 10/21/16 20:00 10/21/16 21:08 IV 0.02 mg/kg/hr .Q24H MIRA 2 mls/hr Protocol Titration 0.02 MG/KG/HR Ceftriaxone Sodium 2 gm/ 100 mls @ 100 mls/hr 10/22/16 13:00 Sodium Chloride IVPB Q12H MIRA Sodium Chloride 1,000 mls @ 75 mls/hr 10/22/16 11:30 Sodium Chloride 0.9% IV .[id number] MIRA Folic Acid 1 mg/ Thiamine HCl 1,011.2 mls @ 75 mls/hr 10/22/16 16:00 100 mg/ Multivitamins/Vitamin IV C 10 ml/ Dextrose DAILY@1600 MIRA Lactic Acid 0 gm 10/22/16 13:00 Lac-Hydrin 12% Lotion (225 G) EXT BID MIRA Lorazepam 1 mg 10/21/16 19:15 10/21/16 20:07 Ativan IVP 1 mg Q6H PRN Administration Agitation - Patient Studies Lab Studies: Microbiology Studies 10/21/16 Unknown Gram Stain - Final Trachasp Sputum Culture - Preliminary No growth. 10/21/16 14:00 Blood Culture - Preliminary Blood Gram Positive Cocci Gram Stain - Final Lab Studies 10/22/16 10/22/16 10/22/16 Range/Units 11:44 06:31 06:31 WBC (4.8-10.8) K/uL RBC (4.40-5.90) Mil/uL Hgb (12.0-18.0) g/dL Hct (35.0-51.0) % MCV (80.0-94.0) fL MCH (27.0-31.0) pg MCHC (33.0-37.0) g/dL RDW (11.5-14.5) % Plt Count (130-400) K/uL MPV (7.2-11.7) fL Neut % (Auto) (50.0-75.0) % Lymph % (Auto) (20.0-40.0) % Tillman % (Auto) (0.0-10.0) % Eos % (Auto) (0.0-4.0) % Baso % (Auto) (0.0-2.0) % Neut # (1.8-7.0) K/uL Lymph # (1.0-4.3) K/uL Tillman # (0.0-0.8) K/uL Eos # (0.0-0.7) K/uL Baso # (0.0-0.2) K/uL Neutrophils % (Manual) (50-75) % Band Neutrophils % (0-2) % Lymphocytes % (Manual) (20-40) % Monocytes % (Manual) (0-10) % Metamyelocytes % (0-0) % Myelocytes % (0-0) % Nucleated RBC % (0-0) % Platelet Estimate (NORMAL) Hypochromasia (manual) Poikilocytosis (manual Anisocytosis (manual) Tear Drop Cells Ja Cells Puncture Site Rra pCO2 34 L (35-45) mm/Hg pO2 55 L (80-100) mm/Hg HCO3 23.4 (21-28) mmol/L ABG pH 7.42 (7.35-7.45) ABG Total CO2 23.1 (22-28) mmol/L ABG O2 Saturation 93.9 L (95-98) % ABG Base Excess -1.7 (-2.0-3.0) mmol/L ABG Hemoglobin (11.7-17.4) g/dL ABG Carboxyhemoglobin (0.5-1.5) % POC ABG HHb (Measured) (0.0-5.0) % ABG Methemoglobin (0.0-3.0) % Nicolas Test Pos ABG Potassium 4.4 (3.6-5.2) mmol/L A-a O2 Difference 616.0 mm/Hg Respiratory Index 11.2 Hgb O2 Saturation (95.0-98.0) % Glucose 90 (75-110) mg/dl Lactate 2.1 (0.7-2.1) mmol/L Vent Mode Mechanical Rate 24 FiO2 100.0 % Tidal Volume 500 PEEP 10 Sodium 137.0 (132-148) mmol/L Potassium (3.6-5.2) mmol/L Chloride 105.0 (98-107) mmol/L Carbon Dioxide (22-30) mmol/L Anion Gap (10-20) BUN (9-20) mg/dL Creatinine (0.8-1.5) MG/DL Est GFR ( Amer) Est GFR (Non-Af Amer) Random Glucose (75-110) mg/dL Calcium (8.6-10.4) mg/dl Phosphorus (2.5-4.5) mg/dL Magnesium (1.6-2.3) mg/dL Total Bilirubin (0.2-1.3) mg/dL AST (17-59) U/L ALT (21-72) U/L Alkaline Phosphatase (38-126) U/L Ammonia (9-33) umol/L Total Protein (6.3-8.3) g/dL Albumin (3.5-5.0) g/dL Globulin (2.2-3.9) gm/dL Albumin/Globulin Ratio (1.0-2.1) Procalcitonin (0.19-0.49) NG/ML Arterial Blood Potassium 4.4 (3.6-5.2) mmol/L Random Vancomycin 12.07 ug/mL Hepatitis A IgM Ab Negative (NEGATIVE) Hep Bs Antigen Negative (NEGATIVE) Hep B Core IgM Ab Negative (NEGATIVE) Hepatitis C Antibody Negative (NEGATIVE) HIV 1&2 Antibody Screen Negative (NEGATIVE) 10/22/16 10/22/16 10/22/16 Range/Units 06:31 06:31 06:31 WBC 5.9 (4.8-10.8) K/uL RBC 3.23 L (4.40-5.90) Mil/uL Hgb 10.8 L (12.0-18.0) g/dL Hct 32.2 L (35.0-51.0) % MCV 99.7 H (80.0-94.0) fL MCH 33.5 H (27.0-31.0) pg MCHC 33.6 (33.0-37.0) g/dL RDW 15.0 H (11.5-14.5) % Plt Count 43 L (130-400) K/uL MPV 10.1 (7.2-11.7) fL Neut % (Auto) 92.3 H (50.0-75.0) % Lymph % (Auto) 3.9 L (20.0-40.0) % Tillman % (Auto) 3.3 (0.0-10.0) % Eos % (Auto) 0.5 (0.0-4.0) % Baso % (Auto) 0.0 (0.0-2.0) % Neut # 5.4 (1.8-7.0) K/uL Lymph # 0.2 L (1.0-4.3) K/uL Tillman # 0.2 (0.0-0.8) K/uL Eos # 0.0 (0.0-0.7) K/uL Baso # 0.0 (0.0-0.2) K/uL Neutrophils % (Manual) 44 L (50-75) % Band Neutrophils % 49 H* (0-2) % Lymphocytes % (Manual) 2 L (20-40) % Monocytes % (Manual) 5 (0-10) % Metamyelocytes % (0-0) % Myelocytes % (0-0) % Nucleated RBC % 1 H (0-0) % Platelet Estimate Decreased L (NORMAL) Hypochromasia (manual) Slight Poikilocytosis (manual Slight Anisocytosis (manual) Slight Tear Drop Cells Slight [place] Cells Slight Puncture Site pCO2 (35-45) mm/Hg pO2 (80-100) mm/Hg HCO3 (21-28) mmol/L ABG pH (7.35-7.45) ABG Total CO2 (22-28) mmol/L ABG O2 Saturation (95-98) % ABG Base Excess (-2.0-3.0) mmol/L ABG Hemoglobin (11.7-17.4) g/dL ABG Carboxyhemoglobin (0.5-1.5) % POC ABG HHb (Measured) (0.0-5.0) % ABG Methemoglobin (0.0-3.0) % Nicolas Test ABG Potassium (3.6-5.2) mmol/L A-a O2 Difference mm/Hg Respiratory Index Hgb O2 Saturation (95.0-98.0) % Glucose (75-110) mg/dl Lactate (0.7-2.1) mmol/L Vent Mode Mechanical Rate FiO2 % Tidal Volume PEEP Sodium 133 (132-148) mmol/L Potassium 3.7 (3.6-5.2) mmol/L Chloride 97 L (98-107) mmol/L Carbon Dioxide 21 L (22-30) mmol/L Anion Gap 19 (10-20) BUN 42 H (9-20) mg/dL Creatinine 3.0 H (0.8-1.5) MG/DL Est GFR ( Amer) 27 Est GFR (Non-Af Amer) 23 Random Glucose 87 (75-110) mg/dL Calcium 6.7 L (8.6-10.4) mg/dl Phosphorus 5.7 H (2.5-4.5) mg/dL Magnesium 1.7 (1.6-2.3) mg/dL Total Bilirubin 2.8 H (0.2-1.3) mg/dL AST 145 H D (17-59) U/L ALT 62 (21-72) U/L Alkaline Phosphatase 30 L D (38-126) U/L Ammonia 51 H (9-33) umol/L Total Protein 5.8 L (6.3-8.3) g/dL Albumin 2.5 L (3.5-5.0) g/dL Globulin 3.3 (2.2-3.9) gm/dL Albumin/Globulin Ratio 0.8 L (1.0-2.1) Procalcitonin (0.19-0.49) NG/ML Arterial Blood Potassium (3.6-5.2) mmol/L Random Vancomycin ug/mL Hepatitis A IgM Ab (NEGATIVE) Hep Bs Antigen (NEGATIVE) Hep B Core IgM Ab (NEGATIVE) Hepatitis C Antibody (NEGATIVE) HIV 1&2 Antibody Screen (NEGATIVE) 10/22/16 10/22/16 10/21/16 Range/Units 06:31 05:26 20:00 WBC (4.8-10.8) K/uL RBC (4.40-5.90) Mil/uL Hgb (12.0-18.0) g/dL Hct (35.0-51.0) % MCV (80.0-94.0) fL MCH (27.0-31.0) pg MCHC (33.0-37.0) g/dL RDW (11.5-14.5) % Plt Count (130-400) K/uL MPV (7.2-11.7) fL Neut % (Auto) (50.0-75.0) % Lymph % (Auto) (20.0-40.0) % Tillman % (Auto) (0.0-10.0) % Eos % (Auto) (0.0-4.0) % Baso % (Auto) (0.0-2.0) % Neut # (1.8-7.0) K/uL Lymph # (1.0-4.3) K/uL Tillman # (0.0-0.8) K/uL Eos # (0.0-0.7) K/uL Baso # (0.0-0.2) K/uL Neutrophils % (Manual) (50-75) % Band Neutrophils % (0-2) % Lymphocytes % (Manual) (20-40) % Monocytes % (Manual) (0-10) % Metamyelocytes % (0-0) % Myelocytes % (0-0) % Nucleated RBC % (0-0) % Platelet Estimate (NORMAL) Hypochromasia (manual) Poikilocytosis (manual Anisocytosis (manual) Tear Drop Cells [place] Cells Puncture Site Rr Rba pCO2 42 38 (35-45) mm/Hg pO2 54 L 54 L (80-100) mm/Hg HCO3 22.4 18.7 L (21-28) mmol/L ABG pH 7.34 L 7.29 L (7.35-7.45) ABG Total CO2 24.0 19.5 L (22-28) mmol/L ABG O2 Saturation 91.7 L 90.9 L (95-98) % ABG Base Excess -3.0 L -7.7 L (-2.0-3.0) mmol/L ABG Hemoglobin 10.7 L 11.4 L (11.7-17.4) g/dL ABG Carboxyhemoglobin 1.3 1.6 H (0.5-1.5) % POC ABG HHb (Measured) 8.1 H 8.9 H (0.0-5.0) % ABG Methemoglobin 1.5 1.0 (0.0-3.0) % Nicolas Test Pos Pos ABG Potassium (3.6-5.2) mmol/L A-a O2 Difference 600.0 612.0 mm/Hg Respiratory Index 10.3 11.3 Hgb O2 Saturation 89.0 L 88.4 L (95.0-98.0) % Glucose (75-110) mg/dl Lactate (0.7-2.1) mmol/L Vent Mode A/c Prvc Mechanical Rate 24 24 FiO2 100.0 100.0 % Tidal Volume 500 600 PEEP 6 6 Sodium (132-148) mmol/L Potassium (3.6-5.2) mmol/L Chloride (98-107) mmol/L Carbon Dioxide (22-30) mmol/L Anion Gap (10-20) BUN (9-20) mg/dL Creatinine (0.8-1.5) MG/DL Est GFR ( Amer) Est GFR (Non-Af Amer) Random Glucose (75-110) mg/dL Calcium (8.6-10.4) mg/dl Phosphorus (2.5-4.5) mg/dL Magnesium (1.6-2.3) mg/dL Total Bilirubin (0.2-1.3) mg/dL AST (17-59) U/L ALT (21-72) U/L Alkaline Phosphatase (38-126) U/L Ammonia (9-33) umol/L Total Protein (6.3-8.3) g/dL Albumin (3.5-5.0) g/dL Globulin (2.2-3.9) gm/dL Albumin/Globulin Ratio (1.0-2.1) Procalcitonin 143.18 H (0.19-0.49) NG/ML Arterial Blood Potassium (3.6-5.2) mmol/L Random Vancomycin ug/mL Hepatitis A IgM Ab (NEGATIVE) Hep Bs Antigen (NEGATIVE) Hep B Core IgM Ab (NEGATIVE) Hepatitis C Antibody (NEGATIVE) HIV 1&2 Antibody Screen (NEGATIVE) 10/21/16 10/21/16 Range/Units 18:06 18:06 WBC 6.2 (4.8-10.8) K/uL RBC 3.46 L (4.40-5.90) Mil/uL Hgb 11.4 L (12.0-18.0) g/dL Hct 34.4 L (35.0-51.0) % MCV 99.4 H (80.0-94.0) fL MCH 33.0 H (27.0-31.0) pg MCHC 33.2 (33.0-37.0) g/dL RDW 14.9 H (11.5-14.5) % Plt Count 52 L (130-400) K/uL MPV 10.1 (7.2-11.7) fL Neut % (Auto) 92.7 H (50.0-75.0) % Lymph % (Auto) 3.5 L (20.0-40.0) % [place] % (Auto) 1.8 (0.0-10.0) % Eos % (Auto) 1.8 (0.0-4.0) % Baso % (Auto) 0.2 (0.0-2.0) % Neut # 5.8 (1.8-7.0) K/uL Lymph # 0.2 L (1.0-4.3) K/uL Tillman # 0.1 (0.0-0.8) K/uL Eos # 0.1 (0.0-0.7) K/uL Baso # 0.0 (0.0-0.2) K/uL Neutrophils % (Manual) 41 L (50-75) % Band Neutrophils % 43 H* (0-2) % Lymphocytes % (Manual) 6 L (20-40) % Monocytes % (Manual) 1 (0-10) % Metamyelocytes % 6 H (0-0) % Myelocytes % 3 H (0-0) % Nucleated RBC % (0-0) % Platelet Estimate Decreased L (NORMAL) Hypochromasia (manual) Poikilocytosis (manual Anisocytosis (manual) Tear Drop Cells [place] Cells Puncture Site pCO2 (35-45) mm/Hg pO2 (80-100) mm/Hg HCO3 (21-28) mmol/L ABG pH (7.35-7.45) ABG Total CO2 (22-28) mmol/L ABG O2 Saturation (95-98) % ABG Base Excess (-2.0-3.0) mmol/L ABG Hemoglobin (11.7-17.4) g/dL ABG Carboxyhemoglobin (0.5-1.5) % POC ABG HHb (Measured) (0.0-5.0) % ABG Methemoglobin (0.0-3.0) % Nicolas Test ABG Potassium (3.6-5.2) mmol/L A-a O2 Difference mm/Hg Respiratory Index Hgb O2 Saturation (95.0-98.0) % Glucose (75-110) mg/dl Lactate (0.7-2.1) mmol/L Vent Mode Mechanical Rate FiO2 % Tidal Volume PEEP Sodium 133 (132-148) mmol/L Potassium 4.2 (3.6-5.2) mmol/L Chloride 101 (98-107) mmol/L Carbon Dioxide 19 L (22-30) mmol/L Anion Gap 17 (10-20) BUN 27 H (9-20) mg/dL Creatinine 1.9 H (0.8-1.5) MG/DL Est GFR ( Amer) 46 Est GFR (Non-Af Amer) 38 Random Glucose 90 (75-110) mg/dL Calcium 6.5 L (8.6-10.4) mg/dl Phosphorus 5.4 H (2.5-4.5) mg/dL Magnesium 1.6 (1.6-2.3) mg/dL Total Bilirubin 2.6 H (0.2-1.3) mg/dL AST 91 H D (17-59) U/L ALT 50 (21-72) U/L Alkaline Phosphatase 46 (38-126) U/L Ammonia (9-33) umol/L Total Protein 6.2 L (6.3-8.3) g/dL Albumin 2.5 L D (3.5-5.0) g/dL Globulin 3.7 (2.2-3.9) gm/dL Albumin/Globulin Ratio 0.7 L (1.0-2.1) Procalcitonin (0.19-0.49) NG/ML Arterial Blood Potassium (3.6-5.2) mmol/L Random Vancomycin ug/mL Hepatitis A IgM Ab (NEGATIVE) Hep Bs Antigen (NEGATIVE) Hep B Core IgM Ab (NEGATIVE) Hepatitis C Antibody (NEGATIVE) HIV 1&2 Antibody Screen (NEGATIVE) Laboratory Results - last 24 hr 10/21/16 10/21/16 10/21/16 18:06 18:06 20:00 WBC 6.2 RBC 3.46 L Hgb 11.4 L Hct 34.4 L MCV 99.4 H MCH 33.0 H MCHC 33.2 RDW 14.9 H Plt Count 52 L MPV 10.1 Neut % (Auto) 92.7 H Lymph % (Auto) 3.5 L [place] % (Auto) 1.8 Eos % (Auto) 1.8 Baso % (Auto) 0.2 Neut # 5.8 Lymph # 0.2 L [place] # 0.1 Eos # 0.1 Baso # 0.0 Neutrophils % (Manual) 41 L Band Neutrophils % 43 H* Lymphocytes % (Manual) 6 L Monocytes % (Manual) 1 Metamyelocytes % 6 H Myelocytes % 3 H Nucleated RBC % Platelet Estimate Decreased L Hypochromasia (manual) Poikilocytosis (manual Anisocytosis (manual) Tear Drop Cells [place] Cells Puncture Site Rba pCO2 38 pO2 54 L HCO3 18.7 L ABG pH 7.29 L ABG Total CO2 19.5 L ABG O2 Saturation 90.9 L ABG Base Excess -7.7 L ABG Hemoglobin 11.4 L ABG Carboxyhemoglobin 1.6 H POC ABG HHb (Measured) 8.9 H ABG Methemoglobin 1.0 Nicolas Test Pos ABG Potassium A-a O2 Difference 612.0 Respiratory Index 11.3 Hgb O2 Saturation 88.4 L Glucose Lactate Vent Mode Prvc Mechanical Rate 24 FiO2 100.0 Tidal Volume 600 PEEP 6 Sodium 133 Potassium 4.2 Chloride 101 Carbon Dioxide 19 L Anion Gap 17 BUN 27 H Creatinine 1.9 H Est GFR ( Amer) 46 Est GFR (Non-Af Amer) 38 Random Glucose 90 Calcium 6.5 L Phosphorus 5.4 H Magnesium 1.6 Total Bilirubin 2.6 H AST 91 H D ALT 50 Alkaline Phosphatase 46 Ammonia Total Protein 6.2 L Albumin 2.5 L D Globulin 3.7 Albumin/Globulin Ratio 0.7 L Procalcitonin Arterial Blood Potassium Random Vancomycin Hepatitis A IgM Ab Hep Bs Antigen Hep B Core IgM Ab Hepatitis C Antibody HIV 1&2 Antibody Screen 10/22/16 10/22/16 10/22/16 05:26 06:31 06:31 WBC 5.9 RBC 3.23 L Hgb 10.8 L Hct 32.2 L MCV 99.7 H MCH 33.5 H MCHC 33.6 RDW 15.0 H Plt Count 43 L MPV 10.1 Neut % (Auto) 92.3 H Lymph % (Auto) 3.9 L [place] % (Auto) 3.3 Eos % (Auto) 0.5 Baso % (Auto) 0.0 Neut # 5.4 Lymph # 0.2 L [place] # 0.2 Eos # 0.0 Baso # 0.0 Neutrophils % (Manual) 44 L Band Neutrophils % 49 H* Lymphocytes % (Manual) 2 L Monocytes % (Manual) 5 Metamyelocytes % Myelocytes % Nucleated RBC % 1 H Platelet Estimate Decreased L Hypochromasia (manual) Slight Poikilocytosis (manual Slight Anisocytosis (manual) Slight Tear Drop Cells Slight Ja Cells Slight Puncture Site Rr pCO2 42 pO2 54 L HCO3 22.4 ABG pH 7.34 L ABG Total CO2 24.0 ABG O2 Saturation 91.7 L ABG Base Excess -3.0 L ABG Hemoglobin 10.7 L ABG Carboxyhemoglobin 1.3 POC ABG HHb (Measured) 8.1 H ABG Methemoglobin 1.5 Nicolas Test Pos ABG Potassium A-a O2 Difference 600.0 Respiratory Index 10.3 Hgb O2 Saturation 89.0 L Glucose Lactate Vent Mode A/c Mechanical Rate 24 FiO2 100.0 Tidal Volume 500 PEEP 6 Sodium Potassium Chloride Carbon Dioxide Anion Gap BUN Creatinine Est GFR ( Amer) Est GFR (Non-Af Amer) Random Glucose Calcium Phosphorus Magnesium Total Bilirubin AST ALT Alkaline Phosphatase Ammonia Total Protein Albumin Globulin Albumin/Globulin Ratio Procalcitonin 143.18 H Arterial Blood Potassium Random Vancomycin Hepatitis A IgM Ab Hep Bs Antigen Hep B Core IgM Ab Hepatitis C Antibody HIV 1&2 Antibody Screen 10/22/16 10/22/16 10/22/16 06:31 06:31 06:31 WBC RBC Hgb Hct MCV MCH MCHC RDW Plt Count MPV Neut % (Auto) Lymph % (Auto) [place] % (Auto) Eos % (Auto) Baso % (Auto) Neut # Lymph # [place] # Eos # Baso # Neutrophils % (Manual) Band Neutrophils % Lymphocytes % (Manual) Monocytes % (Manual) Metamyelocytes % Myelocytes % Nucleated RBC % Platelet Estimate Hypochromasia (manual) Poikilocytosis (manual Anisocytosis (manual) Tear Drop Cells Ja Cells Puncture Site pCO2 pO2 HCO3 ABG pH ABG Total CO2 ABG O2 Saturation ABG Base Excess ABG Hemoglobin ABG Carboxyhemoglobin POC ABG HHb (Measured) ABG Methemoglobin Nicolas Test ABG Potassium A-a O2 Difference Respiratory Index Hgb O2 Saturation Glucose Lactate Vent Mode Mechanical Rate FiO2 Tidal Volume PEEP Sodium 133 Potassium 3.7 Chloride 97 L Carbon Dioxide 21 L Anion Gap 19 BUN 42 H Creatinine 3.0 H Est GFR ( Amer) 27 Est GFR (Non-Af Amer) 23 Random Glucose 87 Calcium 6.7 L Phosphorus 5.7 H Magnesium 1.7 Total Bilirubin 2.8 H AST 145 H D ALT 62 Alkaline Phosphatase 30 L D Ammonia 51 H Total Protein 5.8 L Albumin 2.5 L Globulin 3.3 Albumin/Globulin Ratio 0.8 L Procalcitonin Arterial Blood Potassium Random Vancomycin Hepatitis A IgM Ab Negative Hep Bs Antigen Negative Hep B Core IgM Ab Negative Hepatitis C Antibody Negative HIV 1&2 Antibody Screen 10/22/16 10/22/16 06:31 11:44 WBC RBC Hgb Hct MCV MCH MCHC RDW Plt Count MPV Neut % (Auto) Lymph % (Auto) [place] % (Auto) Eos % (Auto) Baso % (Auto) Neut # Lymph # [place] # Eos # Baso # Neutrophils % (Manual) Band Neutrophils % Lymphocytes % (Manual) Monocytes % (Manual) Metamyelocytes % Myelocytes % Nucleated RBC % Platelet Estimate Hypochromasia (manual) Poikilocytosis (manual Anisocytosis (manual) Tear Drop Cells Ja Cells Puncture Site Rra pCO2 34 L pO2 55 L HCO3 23.4 ABG pH 7.42 ABG Total CO2 23.1 ABG O2 Saturation 93.9 L ABG Base Excess -1.7 ABG Hemoglobin ABG Carboxyhemoglobin POC ABG HHb (Measured) ABG Methemoglobin Nicolas Test Pos ABG Potassium 4.4 A-a O2 Difference 616.0 Respiratory Index 11.2 Hgb O2 Saturation Glucose 90 Lactate 2.1 Vent Mode Mechanical Rate 24 FiO2 100.0 Tidal Volume 500 PEEP 10 Sodium 137.0 Potassium Chloride 105.0 Carbon Dioxide Anion Gap BUN Creatinine Est GFR ( Amer) Est GFR (Non-Af Amer) Random Glucose Calcium Phosphorus Magnesium Total Bilirubin AST ALT Alkaline Phosphatase Ammonia Total Protein Albumin Globulin Albumin/Globulin Ratio Procalcitonin Arterial Blood Potassium 4.4 Random Vancomycin 12.07 Hepatitis A IgM Ab Hep Bs Antigen Hep B Core IgM Ab Hepatitis C Antibody HIV 1&2 Antibody Screen Negative
--- NOTE | 2016-10-22 14:11 | CT ---
PROCEDURE: CT HEAD WITHOUT CONTRAST. HISTORY: r/o bleed COMPARISON: None available. TECHNIQUE: Axial computed tomography images were obtained through the head/brain without intravenous contrast. Radiation dose: Total exam DLP = 1480.66 mGy-cm. This CT exam was performed using one or more of the following dose reduction techniques: Automated exposure control, adjustment of the mA and/or kV according to patient size, and/or use of iterative reconstruction technique. FINDINGS: Examination limited by patient positioning. Partially imaged endotracheal tube. HEMORRHAGE: No intracranial hemorrhage. BRAIN: No mass effect or edema. Intracranial atherosclerotic calcifications. The vital-white matter differentiation appears grossly intact. Please note that MRI with diffusion imaging is more sensitive in the detection of acute ischemic event. VENTRICLES: No hydrocephalus. CALVARIUM: Unremarkable. PARANASAL SINUSES: Near complete opacification of the left maxillary sinus; correlate clinically for sinusitis. MASTOID AIR CELLS: Unremarkable as visualized. No inflammatory changes. OTHER FINDINGS: 1.2 x 2.8 cm heterogeneous partially calcified subcutaneous mass along the posterior left scalp. Soft tissue nodule, right scalp measures approximately 10 mm. Partial opacification of the right external auditory canal, likely cerumen. IMPRESSION: No acute intracranial hemorrhage identified. Near complete opacification of the left maxillary sinus; correlate clinically for sinusitis. 1.2 x 2.8 cm heterogeneous partially calcified subcutaneous mass along the posterior left scalp. Soft tissue nodule, right scalp measures approximately 10 mm.
--- NOTE | 2016-10-22 14:44 | CARD ---
APPROVED REPORT EKG Measurement Heart [id number] <Conclusion> Sinus tachycardia Possible Left atrial enlargement Borderline ECG
--- NOTE | 2016-10-22 16:04 | CP.PCM.CON ---
History of Present Illness - History of Present Illness History of Present Illness: Mr. Mekhi Phillips is a 45-year-old man with a past medical history of chronic alcoholism who presented to the ED yesterday with complaints of feeling unwell with nausea, fatigue and shortness of breath. He had stopped drinking for a few days due to this feeling. While in the ED, he had a generalized tonic- clonic seizures, had bradycardia and hypotension with hypoxia and required intubation. He is currently intubated and sedated on propofol and midazolam. When propofol is turned off, he follows simple commands. Review of Systems - Review of Systems Systems not reviewed;Unavailable: Respiratory Distress, Altered Mental Status, Intubated Past Patient History - Infectious Disease Hx of Infectious Diseases: None - Past Social History Smoking Status: Former Smoker - CARDIAC Hx Hypertension: Yes - INTEGUMENTARY Hx Psoriasis: Yes - MUSCULOSKELETAL/RHEUMATOLOGICAL Hx Falls: No - PSYCHIATRIC Hx Substance Use: No - SURGICAL HISTORY Hx Surgeries: No - ANESTHESIA Hx Anesthesia: No Meds Allergies/Adverse Reactions: Allergies Allergy/AdvReac Type Severity Reaction Status Date / Time No Known Allergies Allergy Verified 10/21/16 10:28 - Medications Medications: Current Medications Albuterol Sulfate (Albuterol 0.042% Inhal Nikky (1.25mg/3ml) Ud) 1.25 mg INH RQ6 [facility] Famotidine (Pepcid) 20 mg IVP DAILY [facility] Last Admin: 10/21/16 14:36 Dose: 20 mg Dopamine HCl/Dextrose (Dopamine 400mg/250ml D5w) 400 mg in 250 mls @ 5.613 mls/ hr IV .Q24H PRN; Protocol; 2 MCG/KG/MIN PRN Reason: TITRATE PER MD ORDER Last Titration: 10/21/16 15:00 Dose: 0 mcg/kg/min, 0 mls/hr Propofol (Diprivan) 1,000 mg in 100 mls @ 2.245 mls/hr IV .Q24H PRN; Protocol; 5 MCG/KG/MIN PRN Reason: Agitation Last Titration: 10/22/16 11:15 Dose: 0 mcg/kg/min, 0 mls/hr Midazolam HCl 100 mg/ Dextrose 100 mls @ 1.49 mls/hr IV .Q24H [facility]; 0.02 MG/KG/ HR PRN Reason: Protocol Last Titration: 10/21/16 21:08 Dose: 0.02 mg/kg/hr, 2 mls/hr Ceftriaxone Sodium 2 gm/ (Sodium Chloride) 100 mls @ 100 mls/hr IVPB Q12H [facility] Sodium Chloride (Sodium Chloride 0.9%) 1,000 mls @ 75 mls/hr IV .[id number] [facility] Folic Acid 1 mg/ Thiamine HCl 100 mg/ Multivitamins/Vitamin C 10 ml/ Dextrose 1 ,011.2 mls @ 75 mls/hr IV DAILY@1600 [facility] Lactic Acid (Lac-Hydrin 12% Lotion (225 G)) 0 gm EXT BID [facility] Lorazepam (Ativan) 1 mg IVP Q6H PRN PRN Reason: Agitation Last Admin: 10/21/16 20:07 Dose: 1 mg Physical Exam - Constitutional Appears: Toxic, Unkempt - Head Exam Head Exam: ATRAUMATIC - Eye Exam Pupil Exam: Miosis - ENT Exam ENT Exam: Mucous Membranes Moist - Neck Exam Neck exam: Positive for: Normal Inspection - Respiratory Exam Additional comments: intubated - Cardiovascular Exam Cardiovascular Exam: +S1, +S2 - GI/Abdominal Exam GI & Abdominal Exam: Distended. absent: Tenderness - Rectal Exam Rectal Exam: Deferred - Back Exam Back exam: NORMAL INSPECTION - Neurological Exam Neurological exam: Alert, CN II-XII Intact, Normal Gait, Oriented x3, Reflexes Normal Additional comments: Intubated and sedated. When off propofol, moves all extremities and follows simple commands. Plantar response is downgoing bilaterally. Brainstem responses are intact. - Psychiatric Exam Additional comments: Sedated - Skin Skin Exam: Dry, Intact, Normal Color, Warm Results - Vital Signs Recent Vital Signs: Last Vital Signs Temp 100.4 F H 10/22/16 09:28 Pulse 123 H 10/22/16 12:01 Resp 27 H 10/22/16 12:01 BP 126/87 10/22/16 12:01 Pulse Ox 86 L 10/22/16 12:01 - Labs Result Diagrams: 10/22/16 06:31 10/22/16 06:31 Labs: Laboratory Results - last 24 hr 10/21/16 10/21/16 10/21/16 15:55 18:06 18:06 WBC 6.2 RBC 3.46 L Hgb 11.4 L Hct 34.4 L MCV 99.4 H MCH 33.0 H MCHC 33.2 RDW 14.9 H Plt Count 52 L MPV 10.1 Neut % (Auto) 92.7 H Lymph % (Auto) 3.5 L Mclean % (Auto) 1.8 Eos % (Auto) 1.8 Baso % (Auto) 0.2 Neut # 5.8 Lymph # 0.2 L Mclean # 0.1 Eos # 0.1 Baso # 0.0 Neutrophils % (Manual) 41 L Band Neutrophils % 43 H* Lymphocytes % (Manual) 6 L Monocytes % (Manual) 1 Metamyelocytes % 6 H Myelocytes % 3 H Nucleated RBC % Platelet Estimate Decreased L Hypochromasia (manual) Poikilocytosis (manual Anisocytosis (manual) Tear Drop Cells [place] Cells Puncture Site Rna pCO2 61 H pO2 63 L HCO3 14.7 L ABG pH 7.08 L* ABG Total CO2 20.0 L ABG O2 Saturation 88.9 L ABG Base Excess -12.5 L ABG Hemoglobin ABG Carboxyhemoglobin POC ABG HHb (Measured) ABG Methemoglobin Nicolas Test Pos ABG Potassium 4.1 A-a O2 Difference 574.0 Respiratory Index 9.1 Hgb O2 Saturation Sodium 134.0 133 Chloride 106.0 101 Glucose 97 Lactate 3.1 H Vent Mode Prvc Mechanical Rate 20 FiO2 100.0 Tidal Volume 550 PEEP 6 Crit Value Called To Dr turner Crit Value Called By [facility] Crit Value Read Back Y Blood Gas Notified Time 1600 Potassium 4.2 Carbon Dioxide 19 L Anion Gap 17 BUN 27 H Creatinine 1.9 H Est GFR ( Amer) 46 Est GFR (Non-Af Amer) 38 Random Glucose 90 Calcium 6.5 L Phosphorus 5.4 H Magnesium 1.6 Total Bilirubin 2.6 H AST 91 H D ALT 50 Alkaline Phosphatase 46 Ammonia Total Protein 6.2 L Albumin 2.5 L D Globulin 3.7 Albumin/Globulin Ratio 0.7 L Procalcitonin Arterial Blood Potassium 4.1 Random Vancomycin Hepatitis A IgM Ab Hep Bs Antigen Hep B Core IgM Ab Hepatitis C Antibody HIV 1&2 Antibody Screen 10/21/16 10/22/16 10/22/16 20:00 05:26 06:31 WBC RBC Hgb Hct MCV MCH MCHC RDW Plt Count MPV Neut % (Auto) Lymph % (Auto) Mclean % (Auto) Eos % (Auto) Baso % (Auto) Neut # Lymph # Mclean # Eos # Baso # Neutrophils % (Manual) Band Neutrophils % Lymphocytes % (Manual) Monocytes % (Manual) Metamyelocytes % Myelocytes % Nucleated RBC % Platelet Estimate Hypochromasia (manual) Poikilocytosis (manual Anisocytosis (manual) Tear Drop Cells [place] Cells Puncture Site Rba Rr pCO2 38 42 pO2 54 L 54 L HCO3 18.7 L 22.4 ABG pH 7.29 L 7.34 L ABG Total CO2 19.5 L 24.0 ABG O2 Saturation 90.9 L 91.7 L ABG Base Excess -7.7 L -3.0 L ABG Hemoglobin 11.4 L 10.7 L ABG Carboxyhemoglobin 1.6 H 1.3 POC ABG HHb (Measured) 8.9 H 8.1 H ABG Methemoglobin 1.0 1.5 Nicolas Test Pos Pos ABG Potassium A-a O2 Difference 612.0 600.0 Respiratory Index 11.3 10.3 Hgb O2 Saturation 88.4 L 89.0 L Sodium Chloride Glucose Lactate Vent Mode Prvc A/c Mechanical Rate 24 24 FiO2 100.0 100.0 Tidal Volume 600 500 PEEP 6 6 Crit Value Called To Crit Value Called By Crit Value Read Back Blood Gas Notified Time Potassium Carbon Dioxide Anion Gap BUN Creatinine Est GFR ( Amer) Est GFR (Non-Af Amer) Random Glucose Calcium Phosphorus Magnesium Total Bilirubin AST ALT Alkaline Phosphatase Ammonia Total Protein Albumin Globulin Albumin/Globulin Ratio Procalcitonin 143.18 H Arterial Blood Potassium Random Vancomycin Hepatitis A IgM Ab Hep Bs Antigen Hep B Core IgM Ab Hepatitis C Antibody HIV 1&2 Antibody Screen 10/22/16 10/22/16 10/22/16 06:31 06:31 06:31 WBC 5.9 RBC 3.23 L Hgb 10.8 L Hct 32.2 L MCV 99.7 H MCH 33.5 H MCHC 33.6 RDW 15.0 H Plt Count 43 L MPV 10.1 Neut % (Auto) 92.3 H Lymph % (Auto) 3.9 L Mclean % (Auto) 3.3 Eos % (Auto) 0.5 Baso % (Auto) 0.0 Neut # 5.4 Lymph # 0.2 L Mclean # 0.2 Eos # 0.0 Baso # 0.0 Neutrophils % (Manual) 44 L Band Neutrophils % 49 H* Lymphocytes % (Manual) 2 L Monocytes % (Manual) 5 Metamyelocytes % Myelocytes % Nucleated RBC % 1 H Platelet Estimate Decreased L Hypochromasia (manual) Slight Poikilocytosis (manual Slight Anisocytosis (manual) Slight Tear Drop Cells Slight Ja Cells Slight Puncture Site pCO2 pO2 HCO3 ABG pH ABG Total CO2 ABG O2 Saturation ABG Base Excess ABG Hemoglobin ABG Carboxyhemoglobin POC ABG HHb (Measured) ABG Methemoglobin Nicolas Test ABG Potassium A-a O2 Difference Respiratory Index Hgb O2 Saturation Sodium 133 Chloride 97 L Glucose Lactate Vent Mode Mechanical Rate FiO2 Tidal Volume PEEP Crit Value Called To Crit Value Called By Crit Value Read Back Blood Gas Notified Time Potassium 3.7 Carbon Dioxide 21 L Anion Gap 19 BUN 42 H Creatinine 3.0 H Est GFR ( Amer) 27 Est GFR (Non-Af Amer) 23 Random Glucose 87 Calcium 6.7 L Phosphorus 5.7 H Magnesium 1.7 Total Bilirubin 2.8 H AST 145 H D ALT 62 Alkaline Phosphatase 30 L D Ammonia 51 H Total Protein 5.8 L Albumin 2.5 L Globulin 3.3 Albumin/Globulin Ratio 0.8 L Procalcitonin Arterial Blood Potassium Random Vancomycin Hepatitis A IgM Ab Hep Bs Antigen Hep B Core IgM Ab Hepatitis C Antibody HIV 1&2 Antibody Screen 10/22/16 10/22/16 10/22/16 06:31 06:31 11:44 WBC RBC Hgb Hct MCV MCH MCHC RDW Plt Count MPV Neut % (Auto) Lymph % (Auto) Mclean % (Auto) Eos % (Auto) Baso % (Auto) Neut # Lymph # Mclean # Eos # Baso # Neutrophils % (Manual) Band Neutrophils % Lymphocytes % (Manual) Monocytes % (Manual) Metamyelocytes % Myelocytes % Nucleated RBC % Platelet Estimate Hypochromasia (manual) Poikilocytosis (manual Anisocytosis (manual) Tear Drop Cells Ja Cells Puncture Site Rra pCO2 34 L pO2 55 L HCO3 23.4 ABG pH 7.42 ABG Total CO2 23.1 ABG O2 Saturation 93.9 L ABG Base Excess -1.7 ABG Hemoglobin ABG Carboxyhemoglobin POC ABG HHb (Measured) ABG Methemoglobin Nicolas Test Pos ABG Potassium 4.4 A-a O2 Difference 616.0 Respiratory Index 11.2 Hgb O2 Saturation Sodium 137.0 Chloride 105.0 Glucose 90 Lactate 2.1 Vent Mode Mechanical Rate 24 FiO2 100.0 Tidal Volume 500 PEEP 10 Crit Value Called To Crit Value Called By Crit Value Read Back Blood Gas Notified Time Potassium Carbon Dioxide Anion Gap BUN Creatinine Est GFR ( Amer) Est GFR (Non-Af Amer) Random Glucose Calcium Phosphorus Magnesium Total Bilirubin AST ALT Alkaline Phosphatase Ammonia Total Protein Albumin Globulin Albumin/Globulin Ratio Procalcitonin Arterial Blood Potassium 4.4 Random Vancomycin 12.07 Hepatitis A IgM Ab Negative Hep Bs Antigen Negative Hep B Core IgM Ab Negative Hepatitis C Antibody Negative HIV 1&2 Antibody Screen Negative - Imaging and Cardiology CT scan - head Status: Image reviewed by me, Report reviewed by me (No acute findings) Assessment & Plan (1) Seizure disorder Assessment and Plan: Likely due to alcohol withdrawal. May consider longer acting benzodiazepine like Klonapin to avoid more withdrawal seizures while he is being weaned off the ventilator. Continue current conservative measures and obtain an MRI of the brain with and without contrast. EEG can be obtain if the patient does not follow commands off sedation. Thank you. Status: Acute Priority: High
[2016-10-22] MEDS: Folic Acid 1 MG, Thiamine 100 MG, Multivitamin (MVI) 10 ML in Dextrose 5% In Water 1,00... IV SCH ×2 (16:10→18:45)
--- NOTE | 2016-10-22 16:11 | CP.PCM.PN ---
Subjective - Date & Time of Evaluation Date of Evaluation: 10/22/16 Time of Evaluation: 16:00 - Subjective Subjective: Patient was seen and examined in ICU. Patient is intubated but is awake at this time and appears to be slightly agitated. Objective - Vital Signs/Intake and Output Vital Signs (last 24 hours): Temp Pulse Resp BP Pulse Ox 100.4 F H 123 H 27 H 126/87 86 L 10/22/16 09:28 10/22/16 12:01 10/22/16 12:01 10/22/16 12:01 10/22/16 12:01 Intake and Output: 10/22/16 10/22/16 06:59 18:59 Intake Total 2010.9 376.0 Output Total 85 825 Balance 1925.9 -449.0 - Medications Medications: Current Medications Albuterol Sulfate (Albuterol 0.042% Inhal Nikky (1.25mg/3ml) Ud) 1.25 mg INH RQ6 [facility] Famotidine (Pepcid) 20 mg IVP DAILY [facility] Last Admin: 10/21/16 14:36 Dose: 20 mg Dopamine HCl/Dextrose (Dopamine 400mg/250ml D5w) 400 mg in 250 mls @ 5.613 mls/ hr IV .Q24H PRN; Protocol; 2 MCG/KG/MIN PRN Reason: TITRATE PER MD ORDER Last Titration: 10/21/16 15:00 Dose: 0 mcg/kg/min, 0 mls/hr Propofol (Diprivan) 1,000 mg in 100 mls @ 2.245 mls/hr IV .Q24H PRN; Protocol; 5 MCG/KG/MIN PRN Reason: Agitation Last Titration: 10/22/16 11:15 Dose: 0 mcg/kg/min, 0 mls/hr Midazolam HCl 100 mg/ Dextrose 100 mls @ 1.49 mls/hr IV .Q24H [facility]; 0.02 MG/KG/ HR PRN Reason: Protocol Last Titration: 10/21/16 21:08 Dose: 0.02 mg/kg/hr, 2 mls/hr Ceftriaxone Sodium 2 gm/ (Sodium Chloride) 100 mls @ 100 mls/hr IVPB Q12H [facility] Sodium Chloride (Sodium Chloride 0.9%) 1,000 mls @ 75 mls/hr IV .[id number] [facility] Folic Acid 1 mg/ Thiamine HCl 100 mg/ Multivitamins/Vitamin C 10 ml/ Dextrose 1 ,011.2 mls @ 75 mls/hr IV DAILY@1600 [facility] Lactic Acid (Lac-Hydrin 12% Lotion (225 G)) 0 gm EXT BID [facility] Lorazepam (Ativan) 1 mg IVP Q6H PRN PRN Reason: Agitation Last Admin: 10/21/16 20:07 Dose: 1 mg - Labs Labs: 10/22/16 06:31 10/22/16 06:31 PT 18.5 SECONDS (9.7-12.2) H 10/21/16 11:04 INR 1.6 10/21/16 11:04 APTT 37 SECONDS (21-34) H 10/21/16 11:04 - Head Exam Head Exam: ATRAUMATIC, NORMOCEPHALIC - Eye Exam Eye Exam: Normal appearance - ENT Exam ENT Exam: Mucous Membranes Moist - Respiratory Exam Respiratory Exam: Clear to Ausculation Bilateral Additional comments: Intubated and on ventilator support - Cardiovascular Exam Cardiovascular Exam: REGULAR RHYTHM, +S1, +S2 - GI/Abdominal Exam GI & Abdominal Exam: Soft. absent: Tenderness - Neurological Exam Additional comments: Intubated. Does not follow any command Assessment and Plan (1) Alcohol withdrawal Status: Acute (2) Hypoxemia Status: Acute (3) Pneumonia Status: Acute (4) Respiratory distress Status: Acute (5) Seizure disorder Status: Acute (6) Sepsis Status: Acute (7) Thrombocythemia Status: Chronic (8) Psoriasis Status: Acute - Assessment and Plan (Free Text) Plan: Patient is currently intubated and monitor respiratory function closely Patient needs to be intubated We will follow-up neurology recommendations for seizures which are likely significant to alcohol withdrawal Continue antibiotics for sepsis/pneumonia. Discussed with the ICU staff. Continue management as per ICU team.
[2016-10-22] MEDS ORDERED: SODIUM BICARBONATE IV SCH (18:00)
[2016-10-22] MEDS ORDERED: SODIUM CHLORIDE 0.45% IV SCH (18:00)
--- NOTE | 2016-10-22 18:17 | CP.PCM.PN ---
Subjective - Date & Time of Evaluation Date of Evaluation: 10/22/16 Time of Evaluation: 09:00 - Subjective Subjective: off pressors Blood cultures + await ID of organism cont iv antibiotics Objective - Vital Signs/Intake and Output Vital Signs (last 24 hours): Temp Pulse Resp BP Pulse Ox 99.9 F H 120 H 28 H 112/75 96 10/22/16 16:00 10/22/16 17:30 10/22/16 17:30 10/22/16 16:59 10/22/16 17:30 Intake and Output: 10/22/16 10/22/16 06:59 18:59 Intake Total 2010.9 1673.0 Output Total 85 915 Balance 1925.9 758 - Medications Medications: Current Medications Albuterol Sulfate (Albuterol 0.042% Inhal Nikky (1.25mg/3ml) Ud) 1.25 mg INH RQ6 [facility] Clonazepam (Klonopin) 0.5 mg NG Q12H PRN PRN Reason: Restlessness Famotidine (Pepcid) 20 mg IVP DAILY [facility] Last Admin: 10/22/16 09:55 Dose: 20 mg Midazolam HCl 100 mg/ Dextrose 100 mls @ 1.49 mls/hr IV .Q24H [facility]; 0.02 MG/KG/ HR PRN Reason: Protocol Last Titration: 10/21/16 21:08 Dose: 0.02 mg/kg/hr, 2 mls/hr Ceftriaxone Sodium 2 gm/ (Sodium Chloride) 100 mls @ 100 mls/hr IVPB Q12H [facility] Last Admin: 10/22/16 13:15 Dose: 100 mls/hr Sodium Chloride (Sodium Chloride 0.9%) 1,000 mls @ 75 mls/hr IV .[id number] [facility] Last Admin: 10/22/16 12:12 Dose: 75 mls/hr Folic Acid 1 mg/ Thiamine HCl 100 mg/ Multivitamins/Vitamin C 10 ml/ Dextrose 1 ,011.2 mls @ 75 mls/hr IV DAILY@1600 [facility] Last Admin: 10/22/16 16:10 Dose: 75 mls/hr Lactic Acid (Lac-Hydrin 12% Lotion (225 G)) 0 gm EXT BID [facility] Last Admin: 10/22/16 18:11 Dose: 1 applic Lorazepam (Ativan) 1 mg IVP Q6H PRN PRN Reason: Agitation Last Admin: 10/21/16 20:07 Dose: 1 mg - Labs Labs: 10/22/16 06:31 10/22/16 06:31 PT 18.5 SECONDS (9.7-12.2) H 10/21/16 11:04 INR 1.6 10/21/16 11:04 APTT 37 SECONDS (21-34) H 10/21/16 11:04 - Constitutional Appears: Chronically Ill - Head Exam Head Exam: NORMOCEPHALIC - Eye Exam Eye Exam: absent: Scleral icterus - ENT Exam ENT Exam: Mucous Membranes Dry - Neck Exam Neck Exam: absent: Lymphadenopathy - Respiratory Exam Respiratory Exam: Decreased Breath Sounds, Rhonchi - Cardiovascular Exam Cardiovascular Exam: Tachycardia, REGULAR RHYTHM, +S1, +S2 - GI/Abdominal Exam GI & Abdominal Exam: Distended, Soft. absent: Tenderness - Rectal Exam Rectal Exam: Deferred - Exam Exam: NORMAL INSPECTION - Extremities Exam Extremities Exam: absent: Calf Tenderness, Pedal Edema, Tenderness - Back Exam Back Exam: absent: CVA tenderness (L), CVA tenderness (R), paraspinal tenderness - Neurological Exam Neurological Exam: Altered - Psychiatric Exam Psychiatric exam: Depressed Assessment and Plan (1) Seizure disorder Status: Acute (2) Seizure disorder Status: Acute (3) Sepsis Status: Acute (4) Sepsis Status: Acute (5) Alcohol withdrawal Status: Acute (6) Hypoxemia Status: Acute (7) Pneumonia Status: Acute (8) Respiratory distress Status: Acute (9) Psoriasis Status: Acute - Assessment and Plan (Free Text) Assessment: await cultures cont vanco/ rocephin
[2016-10-22] MEDS: Albuterol 0.042% Inhal Sol (1.25 mg/3 mL) UD INH SCH (20:15)
[2016-10-23] MEDS: cefTRIAXone 2 GM in Sodium Chloride 0.9% 100 ML IVPB SCH (01:21)
[2016-10-23] MEDS: Sodium Chloride 0.9% 1,000 ML IV SCH ×2 (01:21→16:09)
[2016-10-23] MEDS: Midazolam 2 MG/2 ML VIAL IVP PRN ×3 (01:23→17:05)
[2016-10-23] MEDS: Albuterol 0.042% Inhal Sol (1.25 mg/3 mL) UD INH SCH ×4 (01:43→20:49)
[2016-10-23 05:37] LABS: ABG ALLEN TEST POS; ABG MECHANICAL RATE 24; ARTERIAL BLOOD GAS MODE PRVC; ARTERIAL BLOOD HGB O2 SAT 94.6 % (95.0-98.0); ATERIAL BLOOD GAS PEEP 10; CARBOXYHEMOGLOBIN 1.2 % (0.5-1.5); DRAW SITE RR; HHB 2.8 % (0.0-5.0); METHEMOGLOBIN 1.4 % (0.0-3.0)
[2016-10-23 06:16] LABS: BASO % 0.1 % (0.0-2.0); EOS % 0.2 % (0.0-4.0); HEMATOCRIT 30.7 % (35.0-51.0); LYMPH # 0.6 K/uL (1.0-4.3); LYMPH % 7.2 % (20.0-40.0); MEAN CELL VOLUME 98.6 fL (80.0-94.0); MEAN CORPUSCULAR HEMOGLOBIN 32.8 pg (27.0-31.0); MEAN CORPUSCULAR HGB CONC 33.2 g/dL (33.0-37.0); MEAN PLATELET VOLUME 10.6 fL (7.2-11.7); MONO # 0.3 K/uL (0.0-0.8); MONO % 3.6 % (0.0-10.0); NRBC % 0.2 % (0.0-2.0); PLATELET COUNT 46 K/uL (130-400); WHITE BLOOD COUNT 7.8 K/uL (4.8-10.8)
[2016-10-23 06:43] LABS: ALB/GLOB RATIO 0.7 (1.0-2.1); BILIRUBIN,TOTAL 3.7 mg/dL (0.2-1.3); CALCIUM 6.4 mg/dl (8.6-10.4); MAGNESIUM 2.1 mg/dL (1.6-2.3); PHOSPHOROUS 6.7 mg/dL (2.5-4.5); POTASSIUM 3.6 mmol/L (3.6-5.2); TOTAL PROTEIN 6.3 g/dL (6.3-8.3)
[2016-10-23 08:04] LABS: METAMYELOCYTE 2 % (0-0); NEUTROPHIL 36 % (50-75); TOTAL CELLS COUNTED 100
[2016-10-23] MEDS ORDERED: Sodium Bicarbonate (8.4%) 50 Meq Syringe IVP ONE (08:23)
[2016-10-23] MEDS ORDERED: Sodium Chloride 0.9% 1,000 ML IV ONE (08:29)
--- NOTE | 2016-10-23 09:09 | RAD ---
HISTORY: intubated COMPARISON: Comparison made with prior study 10/23/2016 FINDINGS: LUNGS: In situ ETT, tip of which lies approximately 5.7 cm above sarah. . No change right IJ central venous line tip in the SVC. NGT is present however is poorly delineated on this exam and therefore the study could be repeated with proper technique to identify the distal tip of the NGT is necessary. Patchy right upper and left lower lobe infiltrates. PLEURA: No significant pleural effusion identified, no pneumothorax apparent. CARDIOVASCULAR: Normal. OSSEOUS STRUCTURES: No significant abnormalities. VISUALIZED UPPER ABDOMEN: Normal. OTHER FINDINGS: None. IMPRESSION: In situ ETT, tip of which lies approximately 5.7 cm above sarah. . No change right IJ central venous line tip in the SVC. NGT is present however is poorly delineated on this exam and therefore the study could be repeated with proper technique to identify the distal tip of the NGT is necessary. Patchy right upper and left lower lobe infiltrates.
[2016-10-23] MEDS: Ammonium Lactate 12% Lotion (225 g) EXT SCH ×2 (10:34→18:52)
--- NOTE | 2016-10-23 11:37 | CP.PCM.CON ---
History of Present Illness - History of Present Illness History of Present Illness: 45 y/o male with Hx/o alcoholism had presented to ER for c/o progresively worsening cough, abdominal bloating & discomfort for several s days. While Pt was in ER he had a seizure following which he bacame maicol & hypoxic. Pt was intubated & admitted to ICU Renal consult is requested because of progressive increase in BUN/Creat & Pt has remained anuric Pt is intubated is awake & answers questions approp. by nodding Past Patient History - Infectious Disease Hx of Infectious Diseases: None - Past Social History Smoking Status: Former Smoker - CARDIAC Hx Hypertension: Yes - INTEGUMENTARY Hx Psoriasis: Yes - MUSCULOSKELETAL/RHEUMATOLOGICAL Hx Falls: No - PSYCHIATRIC Hx Substance Use: No - SURGICAL HISTORY Hx Surgeries: No - ANESTHESIA Hx Anesthesia: No Meds Allergies/Adverse Reactions: Allergies Allergy/AdvReac Type Severity Reaction Status Date / Time No Known Allergies Allergy Verified 10/21/16 10:28 - Medications Medications: Current Medications Albuterol Sulfate (Albuterol 0.042% Inhal Nikky (1.25mg/3ml) Ud) 1.25 mg INH RQ6 [facility] Last Admin: 10/23/16 07:33 Dose: 1.25 mg Clonazepam (Klonopin) 0.5 mg NG Q12H [facility] Last Admin: 10/23/16 09:11 Dose: Not Given Famotidine (Pepcid) 20 mg IVP DAILY [facility] Last Admin: 10/23/16 10:34 Dose: 20 mg Sodium Chloride (Sodium Chloride 0.9%) 1,000 mls @ 75 mls/hr IV .[id number] [facility] Last Admin: 10/23/16 01:21 Dose: 75 mls/hr Folic Acid 1 mg/ Thiamine HCl 100 mg/ Multivitamins/Vitamin C 10 ml/ Dextrose 1 ,011.2 mls @ 75 mls/hr IV DAILY@1600 [facility] Last Admin: 10/22/16 18:45 Dose: 75 mls/hr Ceftriaxone Sodium 1 gm/ (Sodium Chloride) 100 mls @ 100 mls/hr IVPB Q12H [facility] Lactic Acid (Lac-Hydrin 12% Lotion (225 G)) 0 gm EXT BID [facility] Last Admin: 10/23/16 10:34 Dose: 1 applic Midazolam HCl (Versed Inj) 2 mg IVP Q4H PRN PRN Reason: Agitation Last Admin: 10/23/16 01:23 Dose: 2 mg Physical Exam - Constitutional Additional comments: Intubated tremulous & agitated - Head Exam Head Exam: ATRAUMATIC, NORMOCEPHALIC - Eye Exam Additional comments: No scleral icterus - ENT Exam ENT Exam: Mucous Membranes Moist - Neck Exam Additional comments: JVD + - Respiratory Exam Additional comments: Lungs cleat - Cardiovascular Exam Cardiovascular Exam: Tachycardia, REGULAR RHYTHM Additional comments: Sinus tach - GI/Abdominal Exam GI & Abdominal Exam: Distended Additional comments: No grimacing noted on palpation - Rectal Exam Rectal Exam: Deferred - Extremities Exam Additional comments: Extrem edematous Scaly cracked skin over Rt elbow & both knees Results - Vital Signs Recent Vital Signs: Last Vital Signs Temp 98.4 F 10/23/16 04:00 Pulse 88 10/23/16 09:00 Resp 23 10/23/16 09:00 BP 86/54 L 10/23/16 08:25 Pulse Ox 98 10/23/16 09:00 - Labs Result Diagrams: 10/23/16 06:13 10/23/16 06:13 Labs: Laboratory Results - last 24 hr 10/22/16 10/22/16 10/23/16 11:44 17:37 05:27 WBC RBC Hgb Hct MCV MCH MCHC RDW Plt Count MPV Neut % (Auto) Lymph % (Auto) [place] % (Auto) Eos % (Auto) Baso % (Auto) Neut # Lymph # [place] # Eos # Baso # Neutrophils % (Manual) Band Neutrophils % Lymphocytes % (Manual) Monocytes % (Manual) Metamyelocytes % Platelet Estimate Anisocytosis (manual) Puncture Site Rra Rr pCO2 34 L 44 pO2 55 L 79 L HCO3 23.4 22.2 ABG pH 7.42 7.32 L ABG Total CO2 23.1 24.1 ABG O2 Saturation 93.9 L 97.1 ABG Base Excess -1.7 -3.4 L ABG Hemoglobin 11.0 L ABG Carboxyhemoglobin 1.2 POC ABG HHb (Measured) 2.8 ABG Methemoglobin 1.4 Nicolas Test Pos Pos ABG Potassium 4.4 A-a O2 Difference 616.0 579.0 Respiratory Index 11.2 7.3 Hgb O2 Saturation 94.6 L Sodium 137.0 Chloride 105.0 Glucose 90 Lactate 2.1 Vent Mode Prvc Mechanical Rate 24 24 FiO2 100.0 100.0 Tidal Volume 500 500 PEEP 10 10 Potassium Carbon Dioxide Anion Gap BUN Creatinine Est GFR ( Amer) Est GFR (Non-Af Amer) POC Glucose (mg/dL) 81 Random Glucose Calcium Phosphorus Magnesium Total Bilirubin AST ALT Alkaline Phosphatase Total Protein Albumin Globulin Albumin/Globulin Ratio Arterial Blood Potassium 4.4 Random Vancomycin Blood Type 10/23/16 10/23/16 10/23/16 06:13 06:13 06:13 WBC 7.8 RBC 3.11 L Hgb 10.2 L Hct 30.7 L MCV 98.6 H MCH 32.8 H MCHC 33.2 RDW 15.0 H Plt Count 46 L MPV 10.6 Neut % (Auto) 88.9 H Lymph % (Auto) 7.2 L [place] % (Auto) 3.6 Eos % (Auto) 0.2 Baso % (Auto) 0.1 Neut # 7.0 Lymph # 0.6 L [place] # 0.3 Eos # 0.0 Baso # 0.0 Neutrophils % (Manual) 36 L Band Neutrophils % 43 H* Lymphocytes % (Manual) 11 L Monocytes % (Manual) 8 Metamyelocytes % 2 H Platelet Estimate Decreased L Anisocytosis (manual) Slight Puncture Site pCO2 pO2 HCO3 ABG pH ABG Total CO2 ABG O2 Saturation ABG Base Excess ABG Hemoglobin ABG Carboxyhemoglobin POC ABG HHb (Measured) ABG Methemoglobin Nicolas Test ABG Potassium A-a O2 Difference Respiratory Index Hgb O2 Saturation Sodium 136 Chloride 97 L Glucose Lactate Vent Mode Mechanical Rate FiO2 Tidal Volume PEEP Potassium 3.6 Carbon Dioxide 22 Anion Gap 21 H BUN 66 H Creatinine 4.9 H Est GFR ( Amer) 16 Est GFR (Non-Af Amer) 13 POC Glucose (mg/dL) Random Glucose 96 Calcium 6.4 L Phosphorus 6.7 H Magnesium 2.1 Total Bilirubin 3.7 H AST 182 H D ALT 75 H D Alkaline Phosphatase 45 Total Protein 6.3 Albumin 2.6 L Globulin 3.7 Albumin/Globulin Ratio 0.7 L Arterial Blood Potassium Random Vancomycin 20.43 Blood Type 10/23/16 10:31 WBC RBC Hgb Hct MCV MCH MCHC RDW Plt Count MPV Neut % (Auto) Lymph % (Auto) [place] % (Auto) Eos % (Auto) Baso % (Auto) Neut # Lymph # [place] # Eos # Baso # Neutrophils % (Manual) Band Neutrophils % Lymphocytes % (Manual) Monocytes % (Manual) Metamyelocytes % Platelet Estimate Anisocytosis (manual) Puncture Site pCO2 pO2 HCO3 ABG pH ABG Total CO2 ABG O2 Saturation ABG Base Excess ABG Hemoglobin ABG Carboxyhemoglobin POC ABG HHb (Measured) ABG Methemoglobin Nicolas Test ABG Potassium A-a O2 Difference Respiratory Index Hgb O2 Saturation Sodium Chloride Glucose Lactate Vent Mode Mechanical Rate FiO2 Tidal Volume PEEP Potassium Carbon Dioxide Anion Gap BUN Creatinine Est GFR ( Amer) Est GFR (Non-Af Amer) POC Glucose (mg/dL) Random Glucose Calcium Phosphorus Magnesium Total Bilirubin AST ALT Alkaline Phosphatase Total Protein Albumin Globulin Albumin/Globulin Ratio Arterial Blood Potassium Random Vancomycin Blood Type B POSITIVE Assessment & Plan - Assessment and Plan (Free Text) Assessment: Anuric RUPALI multifactorial ( ATN, sepsis, cardiac arrest ) Respiratory failure Pneumonia Alcohol withdrawal Psoriasis Plan: Will schedule dialysis today . Pt is also scheduled for CT angiogram. Hemodialysis will be scheduled after CT angio. Renal US/ CT of abdomen CPK level Dialysis procedure was explained to PT He indicated yes by nodding.
--- NOTE | 2016-10-23 13:57 | CP.PCM.PN ---
Subjective - Date & Time of Evaluation Date of Evaluation: 10/23/16 Time of Evaluation: 13:00 - Subjective Subjective: Mr. Mekhi Phillips was seen and examined today in the ICU. He was still intubated , but awake and followed simple commands and answered simple questions with head movement. There were no acute events overnight. Objective - Vital Signs/Intake and Output Vital Signs (last 24 hours): Temp Pulse Resp BP Pulse Ox 99.5 F 88 23 86/54 L 98 10/23/16 08:00 10/23/16 09:00 10/23/16 09:00 10/23/16 08:25 10/23/16 09:00 Intake and Output: 10/23/16 10/23/16 06:59 18:59 Intake Total 1827 1450 Output Total 200 10 Balance 1627 1440 - Medications Medications: Current Medications Albuterol Sulfate (Albuterol 0.042% Inhal Nikky (1.25mg/3ml) Ud) 1.25 mg INH RQ6 [facility] Last Admin: 10/23/16 13:05 Dose: 1.25 mg Clonazepam (Klonopin) 0.5 mg NG Q12H [facility] Last Admin: 10/23/16 09:11 Dose: Not Given Famotidine (Pepcid) 20 mg IVP DAILY [facility] Last Admin: 10/23/16 10:34 Dose: 20 mg Sodium Chloride (Sodium Chloride 0.9%) 1,000 mls @ 75 mls/hr IV .[id number] [facility] Last Admin: 10/23/16 01:21 Dose: 75 mls/hr Folic Acid 1 mg/ Thiamine HCl 100 mg/ Multivitamins/Vitamin C 10 ml/ Dextrose 1 ,011.2 mls @ 75 mls/hr IV DAILY@1600 [facility] Last Admin: 10/22/16 18:45 Dose: 75 mls/hr Ceftriaxone Sodium (Rocephin Iv 1 Gm Duplex) 50 mls @ 100 mls/hr IVPB Q12H [facility] Lactic Acid (Lac-Hydrin 12% Lotion (225 G)) 0 gm EXT BID [facility] Last Admin: 10/23/16 10:34 Dose: 1 applic Midazolam HCl (Versed Inj) 2 mg IVP Q4H PRN PRN Reason: Agitation Last Admin: 10/23/16 12:15 Dose: 2 mg - Labs Labs: 10/23/16 06:13 10/23/16 06:13 PT 18.5 SECONDS (9.7-12.2) H 10/21/16 11:04 INR 1.6 10/21/16 11:04 APTT 37 SECONDS (21-34) H 10/21/16 11:04 - Neurological Exam Neurological Exam: Awake, CN II-XII Intact Neuro motor strength exam: Left Upper Extremity: 4, Right Upper Extremity: 4, Left Lower Extremity: 4, Right Lower Extremity: 4 Additional comments: Intubated, but able to follow simple commands. Reflexes intact. Assessment and Plan (1) Seizure disorder Assessment & Plan: Continue current management for alcohol withdrawal seizures. No further recommendations for AED at this time. Status: Acute
[2016-10-23] MEDS ORDERED: Midazolam 2 MG/2 ML VIAL IVP ONE (14:53)
[2016-10-23] MEDS ORDERED: Midazolam 2 MG/2 ML VIAL ONE (15:00)
[2016-10-23] MEDS ORDERED: Propofol 10 mg/ml Inj (20 ML) ONE (15:12)
--- NOTE | 2016-10-23 15:20 | CP.PCM.PN ---
Subjective - Date & Time of Evaluation Date of Evaluation: 10/23/16 Time of Evaluation: 08:00 - Subjective Subjective: events noted HD catheter in place IV rx in progress cultures pending Objective - Vital Signs/Intake and Output Vital Signs (last 24 hours): Temp Pulse Resp BP Pulse Ox 99.5 F 88 23 86/54 L 98 10/23/16 08:00 10/23/16 09:00 10/23/16 09:00 10/23/16 08:25 10/23/16 09:00 Intake and Output: 10/23/16 10/23/16 06:59 18:59 Intake Total 1827 1450 Output Total 200 10 Balance 1627 1440 - Medications Medications: Current Medications Albuterol Sulfate (Albuterol 0.042% Inhal Nikky (1.25mg/3ml) Ud) 1.25 mg INH RQ6 [facility] Last Admin: 10/23/16 13:05 Dose: 1.25 mg Clonazepam (Klonopin) 0.5 mg NG Q12H [facility] Last Admin: 10/23/16 09:11 Dose: Not Given Famotidine (Pepcid) 20 mg IVP DAILY [facility] Last Admin: 10/23/16 10:34 Dose: 20 mg Sodium Chloride (Sodium Chloride 0.9%) 1,000 mls @ 75 mls/hr IV .[id number] [facility] Last Admin: 10/23/16 01:21 Dose: 75 mls/hr Folic Acid 1 mg/ Thiamine HCl 100 mg/ Multivitamins/Vitamin C 10 ml/ Dextrose 1 ,011.2 mls @ 75 mls/hr IV DAILY@1600 [facility] Last Admin: 10/22/16 18:45 Dose: 75 mls/hr Ceftriaxone Sodium (Rocephin Iv 1 Gm Duplex) 50 mls @ 100 mls/hr IVPB Q12H [facility] Lactic Acid (Lac-Hydrin 12% Lotion (225 G)) 0 gm EXT BID [facility] Last Admin: 10/23/16 10:34 Dose: 1 applic Midazolam HCl (Versed Inj) 2 mg IVP Q4H PRN PRN Reason: Agitation Last Admin: 10/23/16 12:15 Dose: 2 mg - Labs Labs: 10/23/16 06:13 10/23/16 06:13 PT 18.5 SECONDS (9.7-12.2) H 10/21/16 11:04 INR 1.6 10/21/16 11:04 APTT 37 SECONDS (21-34) H 10/21/16 11:04 - Constitutional Appears: Toxic, Cachectic - Head Exam Head Exam: NORMOCEPHALIC - Eye Exam Eye Exam: PERRL. absent: Scleral icterus - ENT Exam ENT Exam: Mucous Membranes Dry - Neck Exam Neck Exam: absent: Lymphadenopathy - Respiratory Exam Respiratory Exam: Decreased Breath Sounds, Rhonchi - Cardiovascular Exam Cardiovascular Exam: REGULAR RHYTHM - GI/Abdominal Exam GI & Abdominal Exam: Distended, Soft - Rectal Exam Rectal Exam: Deferred - Exam Exam: NORMAL INSPECTION - Extremities Exam Extremities Exam: absent: Calf Tenderness, Pedal Edema - Back Exam Back Exam: absent: CVA tenderness (L), CVA tenderness (R) - Neurological Exam Neurological Exam: Altered - Psychiatric Exam Psychiatric exam: Depressed - Skin Skin Exam: Dry Assessment and Plan (1) Seizure disorder Status: Acute (2) Seizure disorder Status: Acute (3) Sepsis Status: Acute (4) Sepsis Status: Acute (5) Alcohol withdrawal Status: Acute (6) Hypoxemia Status: Acute (7) Pneumonia Status: Acute (8) Respiratory distress Status: Acute (9) Psoriasis Status: Acute
[2016-10-23] MEDS ORDERED: Propofol 10 mg/ml Inj (20 ML) IV ONE (15:54)
[2016-10-23] MEDS: cefTRIAXone IV 1 gm in Dextros 50 ML IVPB SCH (16:09)
[2016-10-23] MEDS: Folic Acid 1 MG, Thiamine 100 MG, Multivitamin (MVI) 10 ML in Dextrose 5% In Water 1,00... IV SCH ×2 (16:09→20:00)
[2016-10-23] MEDS ORDERED: Iodixanol 320 MG/ML 100 ML BOTTLE IV ONE (16:15)
--- NOTE | 2016-10-23 16:24 | CP.PCM.PN ---
Subjective - Date & Time of Evaluation Date of Evaluation: 10/23/16 Time of Evaluation: 14:00 - Subjective Subjective: Patient was seen and examined in ICU today. Patient is intubated and sedated Patient is to receive catheter for hemodialysis today. Objective - Vital Signs/Intake and Output Vital Signs (last 24 hours): Temp Pulse Resp BP Pulse Ox 99.5 F 97 H 24 103/66 95 10/23/16 08:00 10/23/16 15:00 10/23/16 15:00 10/23/16 14:57 10/23/16 15:00 Intake and Output: 10/23/16 10/23/16 06:59 18:59 Intake Total 1827 1450 Output Total 200 10 Balance 1627 1440 - Medications Medications: Current Medications Albuterol Sulfate (Albuterol 0.042% Inhal Nikky (1.25mg/3ml) Ud) 1.25 mg INH RQ6 [facility] Last Admin: 10/23/16 13:05 Dose: 1.25 mg Clonazepam (Klonopin) 0.5 mg NG Q12H [facility] Last Admin: 10/23/16 09:11 Dose: Not Given Famotidine (Pepcid) 20 mg IVP DAILY [facility] Last Admin: 10/23/16 10:34 Dose: 20 mg Sodium Chloride (Sodium Chloride 0.9%) 1,000 mls @ 75 mls/hr IV .[id number] [facility] Last Admin: 10/23/16 16:09 Dose: 75 mls/hr Folic Acid 1 mg/ Thiamine HCl 100 mg/ Multivitamins/Vitamin C 10 ml/ Dextrose 1 ,011.2 mls @ 75 mls/hr IV DAILY@1600 [facility] Last Admin: 10/23/16 16:09 Dose: 75 mls/hr Ceftriaxone Sodium (Rocephin Iv 1 Gm Duplex) 50 mls @ 100 mls/hr IVPB Q12H [facility] Last Admin: 10/23/16 16:09 Dose: 100 mls/hr Lactic Acid (Lac-Hydrin 12% Lotion (225 G)) 0 gm EXT BID [facility] Last Admin: 10/23/16 10:34 Dose: 1 applic Midazolam HCl (Versed Inj) 2 mg IVP Q4H PRN PRN Reason: Agitation Last Admin: 10/23/16 12:15 Dose: 2 mg - Labs Labs: 10/23/16 06:13 10/23/16 06:13 PT 18.5 SECONDS (9.7-12.2) H 10/21/16 11:04 INR 1.6 10/21/16 11:04 APTT 37 SECONDS (21-34) H 10/21/16 11:04 - Head Exam Head Exam: ATRAUMATIC, NORMOCEPHALIC - Eye Exam Eye Exam: Normal appearance - ENT Exam ENT Exam: Mucous Membranes Moist - Respiratory Exam Respiratory Exam: Clear to Ausculation Bilateral Additional comments: Patient is intubated on ventilator support. - Cardiovascular Exam Cardiovascular Exam: REGULAR RHYTHM, +S1, +S2 - GI/Abdominal Exam GI & Abdominal Exam: Soft. absent: Tenderness - Extremities Exam Extremities Exam: absent: Pedal Edema Assessment and Plan (1) Alcohol withdrawal Status: Acute (2) Hypoxemia Status: Acute (3) Pneumonia Status: Acute (4) Respiratory distress Status: Acute (5) Seizure disorder Status: Acute (6) Sepsis Status: Acute (7) Thrombocythemia Status: Chronic (8) Psoriasis Status: Acute - Assessment and Plan (Free Text) Plan: Continue management FOR delirium tremens as per ICU team. Patient is intubated and sedated Patient also is in renal failure. Patient to receive hemodialysis Discussed the plan of care with the ICU team and continue management as per ICU team
--- NOTE | 2016-10-23 17:29 | CP.CCUPN ---
<Simran Wilde - Last Filed: 10/23/16 18:23> CCU Subjective - Physician Review Subjective (Free Text): 10/22/16 16:39 Patient was seen and examined at bedside in the AM. Patient is intubated and alert. 10/23/16 18:26 CCU Objective - Vital Signs / Intake & Output Vital Signs (Last 4 hours): Vital Signs Pulse Resp BP Pulse Ox 10/23/16 15:00 97 H 24 95 10/23/16 14:57 99 H 12 103/66 95 10/23/16 14:27 93 H 24 94/58 L 95 10/23/16 14:00 93 H 26 H 93 L 10/23/16 13:57 93 H 25 H 93 L Intake and Output (Last 8hrs): Intake & Output 10/23/16 10/23/16 10/23/16 06:59 14:59 22:59 Intake Total 1225 1450 0 Output Total 120 10 Balance 1105 1440 0 Weight 220 lb 14.451 oz Intake: Intake, IV Amount 1225 1450 0 Right Proximal Port 625 1225 0 Internal Jugular Right jugular TLC medial 600 225 0 port Output: Drainage 0 oral 0 Urine 120 10 Urethral (Walters) 120 10 Other: # Bowel Movements 1 - Physical Exam Head: Positive for: Atraumatic, Normocephalic Respiratory/Chest: Positive for: Decreased Breath Sounds, Other (intubated ) Cardiovascular: Positive for: Normal S1, S2, Tachycardic Abdomen: Positive for: Distention, Normal Bowel Sounds Genitourinary Male: Positive for: Other (walters in place) Upper Extremity: Negative for: Edema Lower Extremity: Negative for: Edema Neurological: Negative for: GCS=15, Speech Normal (patient is intubated) Skin: Positive for: Other (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, bilateral upper extremities, and in gluteal fold.) Psychiatric: Positive for: Alert - Medications Active Medications: Active Medications Generic Name Dose Route Start Last Admin Trade Name Freq PRN Reason Stop Dose Admin Albuterol Sulfate 1.25 mg 10/22/16 14:00 10/23/16 13:05 Albuterol 0.042% Inhal Nikky (1.25mg/3ml) Ud INH 1.25 mg RQ6 MIRA Administration Clonazepam 0.5 mg 10/22/16 19:30 10/23/16 09:11 Klonopin NG Not Given Q12H MIRA Famotidine 20 mg 10/21/16 14:30 10/23/16 10:34 Pepcid IVP 20 mg DAILY MIRA Administration Sodium Chloride 1,000 mls @ 75 mls/hr 10/22/16 11:30 10/23/16 16:09 Sodium Chloride 0.9% IV 75 mls/hr .[id number] MIRA Administration Folic Acid 1 mg/ Thiamine HCl 1,011.2 mls @ 75 mls/hr 10/22/16 16:00 16:09 100 mg/ Multivitamins/Vitamin IV 75 mls/hr C 10 ml/ Dextrose DAILY@1600 MIRA Administration Ceftriaxone Sodium 50 mls @ 100 mls/hr 10/23/16 13:30 10/23/16 16:09 Rocephin Iv 1 Gm Duplex IVPB 100 mls/hr Q12H MIRA Administration Lactic Acid 0 gm 10/22/16 13:00 10/23/16 10:34 Lac-Hydrin 12% Lotion (225 G) EXT 1 applic BID MIRA Administration Midazolam HCl 2 mg 10/22/16 19:22 10/23/16 12:15 Versed Inj IVP 2 mg Q4H PRN Administration Agitation - Patient Studies Lab Studies: Microbiology Studies 10/21/16 Unknown Gram Stain - Final Trachasp Sputum Culture - Final NORMAL ORAL CAMRYN 10/21/16 Unknown MRSA Culture (Admit) - Final Naris MRSA NOT DETECTED Lab Studies 10/23/16 10/23/16 10/23/16 Range/Units 10:31 06:13 06:13 WBC (4.8-10.8) K/uL RBC (4.40-5.90) Mil/uL Hgb (12.0-18.0) g/dL Hct (35.0-51.0) % MCV (80.0-94.0) fL MCH (27.0-31.0) pg MCHC (33.0-37.0) g/dL RDW (11.5-14.5) % Plt Count (130-400) K/uL MPV (7.2-11.7) fL Neut % (Auto) (50.0-75.0) % Lymph % (Auto) (20.0-40.0) % Graves % (Auto) (0.0-10.0) % Eos % (Auto) (0.0-4.0) % Baso % (Auto) (0.0-2.0) % Neut # (1.8-7.0) K/uL Lymph # (1.0-4.3) K/uL Graves # (0.0-0.8) K/uL Eos # (0.0-0.7) K/uL Baso # (0.0-0.2) K/uL Neutrophils % (Manual) (50-75) % Band Neutrophils % (0-2) % Lymphocytes % (Manual) (20-40) % Monocytes % (Manual) (0-10) % Metamyelocytes % (0-0) % Platelet Estimate (NORMAL) Anisocytosis (manual) Puncture Site pCO2 (35-45) mm/Hg pO2 (80-100) mm/Hg HCO3 (21-28) mmol/L ABG pH (7.35-7.45) ABG Total CO2 (22-28) mmol/L ABG O2 Saturation (95-98) % ABG Base Excess (-2.0-3.0) mmol/L ABG Hemoglobin (11.7-17.4) g/dL ABG Carboxyhemoglobin (0.5-1.5) % POC ABG HHb (Measured) (0.0-5.0) % ABG Methemoglobin (0.0-3.0) % Nicolas Test A-a O2 Difference mm/Hg Respiratory Index Hgb O2 Saturation (95.0-98.0) % Vent Mode Mechanical Rate FiO2 % Tidal Volume PEEP Sodium 136 (132-148) mmol/L Potassium 3.6 (3.6-5.2) mmol/L Chloride 97 L (98-107) mmol/L Carbon Dioxide 22 (22-30) mmol/L Anion Gap 21 H (10-20) BUN 66 H (9-20) mg/dL Creatinine 4.9 H (0.8-1.5) MG/DL Est GFR ( Amer) 16 Est GFR (Non-Af Amer) 13 POC Glucose (mg/dL) (65-110) mg/dL Random Glucose 96 (75-110) mg/dL Calcium 6.4 L (8.6-10.4) mg/dl Phosphorus 6.7 H (2.5-4.5) mg/dL Magnesium 2.1 (1.6-2.3) mg/dL Total Bilirubin 3.7 H (0.2-1.3) mg/dL AST 182 H D (17-59) U/L ALT 75 H D (21-72) U/L Alkaline Phosphatase 45 (38-126) U/L Total Protein 6.3 (6.3-8.3) g/dL Albumin 2.6 L (3.5-5.0) g/dL Globulin 3.7 (2.2-3.9) gm/dL Albumin/Globulin Ratio 0.7 L (1.0-2.1) Random Vancomycin 20.43 ug/mL Blood Type B POSITIVE Antibody Screen Negative 10/23/16 10/23/16 10/22/16 Range/Units 06:13 05:27 17:37 WBC 7.8 (4.8-10.8) K/uL RBC 3.11 L (4.40-5.90) Mil/uL Hgb 10.2 L (12.0-18.0) g/dL Hct 30.7 L (35.0-51.0) % MCV 98.6 H (80.0-94.0) fL MCH 32.8 H (27.0-31.0) pg MCHC 33.2 (33.0-37.0) g/dL RDW 15.0 H (11.5-14.5) % Plt Count 46 L (130-400) K/uL MPV 10.6 (7.2-11.7) fL Neut % (Auto) 88.9 H (50.0-75.0) % Lymph % (Auto) 7.2 L (20.0-40.0) % Graves % (Auto) 3.6 (0.0-10.0) % Eos % (Auto) 0.2 (0.0-4.0) % Baso % (Auto) 0.1 (0.0-2.0) % Neut # 7.0 (1.8-7.0) K/uL Lymph # 0.6 L (1.0-4.3) K/uL Graves # 0.3 (0.0-0.8) K/uL Eos # 0.0 (0.0-0.7) K/uL Baso # 0.0 (0.0-0.2) K/uL Neutrophils % (Manual) 36 L (50-75) % Band Neutrophils % 43 H* (0-2) % Lymphocytes % (Manual) 11 L (20-40) % Monocytes % (Manual) 8 (0-10) % Metamyelocytes % 2 H (0-0) % Platelet Estimate Decreased L (NORMAL) Anisocytosis (manual) Slight Puncture Site Rr pCO2 44 (35-45) mm/Hg pO2 79 L (80-100) mm/Hg HCO3 22.2 (21-28) mmol/L ABG pH 7.32 L (7.35-7.45) ABG Total CO2 24.1 (22-28) mmol/L ABG O2 Saturation 97.1 (95-98) % ABG Base Excess -3.4 L (-2.0-3.0) mmol/L ABG Hemoglobin 11.0 L (11.7-17.4) g/dL ABG Carboxyhemoglobin 1.2 (0.5-1.5) % POC ABG HHb (Measured) 2.8 (0.0-5.0) % ABG Methemoglobin 1.4 (0.0-3.0) % Nicolas Test Pos A-a O2 Difference 579.0 mm/Hg Respiratory Index 7.3 Hgb O2 Saturation 94.6 L (95.0-98.0) % Vent Mode Prvc Mechanical Rate 24 FiO2 100.0 % Tidal Volume 500 PEEP 10 Sodium (132-148) mmol/L Potassium (3.6-5.2) mmol/L Chloride (98-107) mmol/L Carbon Dioxide (22-30) mmol/L Anion Gap (10-20) BUN (9-20) mg/dL Creatinine (0.8-1.5) MG/DL Est GFR ( Amer) Est GFR (Non-Af Amer) POC Glucose (mg/dL) 81 (65-110) mg/dL Random Glucose (75-110) mg/dL Calcium (8.6-10.4) mg/dl Phosphorus (2.5-4.5) mg/dL Magnesium (1.6-2.3) mg/dL Total Bilirubin (0.2-1.3) mg/dL AST (17-59) U/L ALT (21-72) U/L Alkaline Phosphatase (38-126) U/L Total Protein (6.3-8.3) g/dL Albumin (3.5-5.0) g/dL Globulin (2.2-3.9) gm/dL Albumin/Globulin Ratio (1.0-2.1) Random Vancomycin ug/mL Blood Type Antibody Screen Laboratory Results - last 24 hr 10/22/16 10/23/16 10/23/16 17:37 05:27 06:13 WBC 7.8 RBC 3.11 L Hgb 10.2 L Hct 30.7 L MCV 98.6 H MCH 32.8 H MCHC 33.2 RDW 15.0 H Plt Count 46 L MPV 10.6 Neut % (Auto) 88.9 H Lymph % (Auto) 7.2 L Graves % (Auto) 3.6 Eos % (Auto) 0.2 Baso % (Auto) 0.1 Neut # 7.0 Lymph # 0.6 L Graves # 0.3 Eos # 0.0 Baso # 0.0 Neutrophils % (Manual) 36 L Band Neutrophils % 43 H* Lymphocytes % (Manual) 11 L Monocytes % (Manual) 8 Metamyelocytes % 2 H Platelet Estimate Decreased L Anisocytosis (manual) Slight Puncture Site Rr pCO2 44 pO2 79 L HCO3 22.2 ABG pH 7.32 L ABG Total CO2 24.1 ABG O2 Saturation 97.1 ABG Base Excess -3.4 L ABG Hemoglobin 11.0 L ABG Carboxyhemoglobin 1.2 POC ABG HHb (Measured) 2.8 ABG Methemoglobin 1.4 Nicolas Test Pos A-a O2 Difference 579.0 Respiratory Index 7.3 Hgb O2 Saturation 94.6 L Vent Mode Prvc Mechanical Rate 24 FiO2 100.0 Tidal Volume 500 PEEP 10 Sodium Potassium Chloride Carbon Dioxide Anion Gap BUN Creatinine Est GFR ( Amer) Est GFR (Non-Af Amer) POC Glucose (mg/dL) 81 Random Glucose Calcium Phosphorus Magnesium Total Bilirubin AST ALT Alkaline Phosphatase Total Protein Albumin Globulin Albumin/Globulin Ratio Random Vancomycin Blood Type Antibody Screen 10/23/16 10/23/16 10/23/16 06:13 06:13 10:31 WBC RBC Hgb Hct MCV MCH MCHC RDW Plt Count MPV Neut % (Auto) Lymph % (Auto) Graves % (Auto) Eos % (Auto) Baso % (Auto) Neut # Lymph # Graves # Eos # Baso # Neutrophils % (Manual) Band Neutrophils % Lymphocytes % (Manual) Monocytes % (Manual) Metamyelocytes % Platelet Estimate Anisocytosis (manual) Puncture Site pCO2 pO2 HCO3 ABG pH ABG Total CO2 ABG O2 Saturation ABG Base Excess ABG Hemoglobin ABG Carboxyhemoglobin POC ABG HHb (Measured) ABG Methemoglobin Nicolas Test A-a O2 Difference Respiratory Index Hgb O2 Saturation Vent Mode Mechanical Rate FiO2 Tidal Volume PEEP Sodium 136 Potassium 3.6 Chloride 97 L Carbon Dioxide 22 Anion Gap 21 H BUN 66 H Creatinine 4.9 H Est GFR ( Amer) 16 Est GFR (Non-Af Amer) 13 POC Glucose (mg/dL) Random Glucose 96 Calcium 6.4 L Phosphorus 6.7 H Magnesium 2.1 Total Bilirubin 3.7 H AST 182 H D ALT 75 H D Alkaline Phosphatase 45 Total Protein 6.3 Albumin 2.6 L Globulin 3.7 Albumin/Globulin Ratio 0.7 L Random Vancomycin 20.43 Blood Type B POSITIVE Antibody Screen Negative Review of Systems - Review of Systems Systems not reviewed;Unavailable: Intubated Assessment/Plan (1) Alcohol withdrawal Assessment and plan: 45 year old male who presented to the ED with complaint of worsening cough, abdominal pain for seven days. Neuro: - Chronic alcohol abuse - Alert - Propofol: discontinued 10/22 - 0.5 Klonopin 0.5mg - 2mg Midazolam - Intubated - CT of head (10/22): no acute intracranial hemorrhage identified. Near complete opacification of the left maxillary sinus; correlate clinically for sinusitis. 1.2x2.8 cm heterogenous partially calcified subcutaneous mass along the posterior left scalp. Soft tissue nodule, right scalp measures approximately 10mm. - Neurology Consult: Dr. Pineda --> help appreciated - Folic Acid, Thamine, Multivitamin IV daily in 5% Dextrose Pulm: - Intubated - Hypoxic on vent - Chest X-ray (10/21): Persistent dense opacity in the right upper and mid lung could represent consolidation, underlying mass could no be excluded. Also suspected is developing pulmonary edema in the left lung, bilateral pulmonary venous congestion and interstitial pulmonary edema. The right IJV line terminates in the SVC. No pneumothorax. - Right Central Line Placed - 10/22 - Sodium Bicarb Drip - discontinued - pH: 7.42 - Lactate: 2.1 - Chest X-ray (10/23): NGT present. In situ ETT, tip of which lies about 5.7 cm above sarah. Patchy right upper and left lower lobe infiltrates. - CT Angio (10/23): Limited examination for PE. No large central pulmonary embolis identified. Extensive pulmonary consolidation involving both lower lobes as well as right upper lobe. Patchy infiltrates in the left upper lobe and right middle lobe. Bilateral pleural effusion. Hepatic cirrhosis. Ascites. CV: - Monitor Heme: - H/H (10/23): 7.7/24.8; H/H (10/22): 10.8/32.2; H/H (10/21): 11.4/34.4 - PT/INR: 18.5/1.6 - Thrombocytopenia - Platelets (10/23): 71; Platelets (10/22): 43; Platelets (10/21): 52 - Plateletphresis: 1 unit (10/23) Renal: - BUN/Cr (10/23): 66/4.9; BUN/Cr (10/22): 42/3.0; BUN/Cr (10/21): 27/1.9 - Walters placed 10/21 - Monitor - Received Dialysis 10/23 - Right Femoral Hemodialysis Access placed 10/23 Endo: - Monitor - No acute issues GI: - NPO - AST/ALT: 91/50 - Monitor ID: - Sepsis due to Pneumonia - f/u blood culture: gram positive cocci (preliminary) - urine culture- no growth - f/u sputum culture : preliminary shows no growth - Zosyn stopped 10/22 - Ceftriaxone started 10/22 - Vanco started 10/22 - ID Consult: Dr. Bowers --> help appreciated DVT proph - SCDs; contraindication of VTE due to low platelets GI proph - Pepcid 20mg PO Daily Code status - full code Case discussed with Dr. Patti Wilde PGY-1 Current Visit: Yes Status: Acute Priority: High (2) Sepsis Current Visit: Yes Status: Acute Priority: High (3) Thrombocythemia Current Visit: Yes Status: Chronic (4) Transaminitis Current Visit: Yes Status: Acute <Nitish Armstrong - Last Filed: 10/23/16 19:14> CCU Objective - Vital Signs / Intake & Output Vital Signs (Last 4 hours): Vital Signs Temp Pulse Pulse Resp BP BP Pulse Ox 10/23/16 18:40 118 H 24 120/78 95 10/23/16 18:20 114 H 30 H 138/98 H 94 L 10/23/16 18:00 98.1 F 111 H 28 H 134/96 H 93 L 10/23/16 17:40 110 H 29 H 129/89 93 L 10/23/16 17:22 111 H 123/82 93 L 10/23/16 17:07 116 H 28 H 130/91 H 96 10/23/16 16:52 98.5 F 110 H 110 H 26 H 126/88 126/88 98 Intake and Output (Last 8hrs): Intake & Output 10/23/16 10/23/16 10/23/16 06:59 14:59 22:59 Intake Total 1225 1450 0 Output Total 120 10 Balance 1105 1440 0 Weight 220 lb 14.451 oz 221 lb 207 lb 3.752 oz Intake: Intake, IV Amount 1225 1450 0 Right Proximal Port 625 1225 0 Internal Jugular Right jugular TLC medial 600 225 0 port Output: Drainage 0 oral 0 Urine 120 10 Urethral (Walters) 120 10 Other: # Bowel Movements 1 - Medications Active Medications: Active Medications Generic Name Dose Route Start Last Admin Trade Name Freq PRN Reason Stop Dose Admin Albuterol Sulfate 1.25 mg 10/22/16 14:00 10/23/16 13:05 Albuterol 0.042% Inhal Nikky (1.25mg/3ml) Ud INH 1.25 mg RQ6 MIRA Administration Clonazepam 0.5 mg 10/22/16 19:30 10/23/16 17:05 Klonopin NG 0.5 mg Q12H MIRA Administration Famotidine 20 mg 10/21/16 14:30 10/23/16 10:34 Pepcid IVP 20 mg DAILY MIRA Administration Sodium Chloride 1,000 mls @ 75 mls/hr 10/22/16 11:30 10/23/16 16:09 Sodium Chloride 0.9% IV 75 mls/hr .[id number] MIRA Administration Ceftriaxone Sodium 50 mls @ 100 mls/hr 10/23/16 13:30 10/23/16 16:09 Rocephin Iv 1 Gm Duplex IVPB 100 mls/hr Q12H IMRA Administration Folic Acid 1 mg/ Thiamine HCl 1,011.2 mls @ 50 mls/hr 10/23/16 19:00 100 mg/ Multivitamins/Vitamin IV C 10 ml/ Dextrose DAILY@1900 MIRA Lactic Acid 0 gm 10/22/16 13:00 10/23/16 18:52 Lac-Hydrin 12% Lotion (225 G) EXT Not Given BID MIRA Midazolam HCl 2 mg 10/22/16 19:22 10/23/16 17:05 Versed Inj IVP 2 mg Q4H PRN Administration Agitation - Patient Studies Lab Studies: Microbiology Studies 10/21/16 Unknown Gram Stain - Final Trachasp Sputum Culture - Final NORMAL ORAL CAMRYN 10/21/16 Unknown MRSA Culture (Admit) - Final Naris MRSA NOT DETECTED Lab Studies 10/23/16 10/23/16 10/23/16 Range/Units 17:41 10:31 06:13 WBC (4.8-10.8) K/uL RBC (4.40-5.90) Mil/uL Hgb (12.0-18.0) g/dL Hct (35.0-51.0) % MCV (80.0-94.0) fL MCH (27.0-31.0) pg MCHC (33.0-37.0) g/dL RDW (11.5-14.5) % Plt Count (130-400) K/uL MPV (7.2-11.7) fL Neut % (Auto) (50.0-75.0) % Lymph % (Auto) (20.0-40.0) % Graves % (Auto) (0.0-10.0) % Eos % (Auto) (0.0-4.0) % Baso % (Auto) (0.0-2.0) % Neut # (1.8-7.0) K/uL Lymph # (1.0-4.3) K/uL Graves # (0.0-0.8) K/uL Eos # (0.0-0.7) K/uL Baso # (0.0-0.2) K/uL Neutrophils % (Manual) (50-75) % Band Neutrophils % (0-2) % Lymphocytes % (Manual) (20-40) % Monocytes % (Manual) (0-10) % Metamyelocytes % (0-0) % Platelet Estimate (NORMAL) Anisocytosis (manual) Puncture Site pCO2 (35-45) mm/Hg pO2 (80-100) mm/Hg HCO3 (21-28) mmol/L ABG pH (7.35-7.45) ABG Total CO2 (22-28) mmol/L ABG O2 Saturation (95-98) % ABG Base Excess (-2.0-3.0) mmol/L ABG Hemoglobin (11.7-17.4) g/dL ABG Carboxyhemoglobin (0.5-1.5) % POC ABG HHb (Measured) (0.0-5.0) % ABG Methemoglobin (0.0-3.0) % Nicolas Test A-a O2 Difference mm/Hg Respiratory Index Hgb O2 Saturation (95.0-98.0) % Vent Mode Mechanical Rate FiO2 % Tidal Volume PEEP Sodium (132-148) mmol/L Potassium (3.6-5.2) mmol/L Chloride (98-107) mmol/L Carbon Dioxide (22-30) mmol/L Anion Gap (10-20) BUN (9-20) mg/dL Creatinine (0.8-1.5) MG/DL Est GFR ( Amer) Est GFR (Non-Af Amer) Random Glucose (75-110) mg/dL Calcium (8.6-10.4) mg/dl Phosphorus (2.5-4.5) mg/dL Magnesium (1.6-2.3) mg/dL Total Bilirubin (0.2-1.3) mg/dL AST (17-59) U/L ALT (21-72) U/L Alkaline Phosphatase (38-126) U/L Total Creatine Kinase 484 H (55-170) U/L Total Protein (6.3-8.3) g/dL Albumin (3.5-5.0) g/dL Globulin (2.2-3.9) gm/dL Albumin/Globulin Ratio (1.0-2.1) Random Vancomycin 20.43 ug/mL Blood Type B POSITIVE Antibody Screen Negative 07/21/17 07/21/17 07/21/17 Range/Units 06:13 06:13 05:27 WBC 7.8 (4.8-10.8) K/uL RBC 3.11 L (4.40-5.90) Mil/uL Hgb 10.2 L (12.0-18.0) g/dL Hct 30.7 L (35.0-51.0) % MCV 98.6 H (80.0-94.0) fL MCH 32.8 H (27.0-31.0) pg MCHC 33.2 (33.0-37.0) g/dL RDW 15.0 H (11.5-14.5) % Plt Count 46 L (130-400) K/uL MPV 10.6 (7.2-11.7) fL Neut % (Auto) 88.9 H (50.0-75.0) % Lymph % (Auto) 7.2 L (20.0-40.0) % Graves % (Auto) 3.6 (0.0-10.0) % Eos % (Auto) 0.2 (0.0-4.0) % Baso % (Auto) 0.1 (0.0-2.0) % Neut # 7.0 (1.8-7.0) K/uL Lymph # 0.6 L (1.0-4.3) K/uL Graves # 0.3 (0.0-0.8) K/uL Eos # 0.0 (0.0-0.7) K/uL Baso # 0.0 (0.0-0.2) K/uL Neutrophils % (Manual) 36 L (50-75) % Band Neutrophils % 43 H* (0-2) % Lymphocytes % (Manual) 11 L (20-40) % Monocytes % (Manual) 8 (0-10) % Metamyelocytes % 2 H (0-0) % Platelet Estimate Decreased L (NORMAL) Anisocytosis (manual) Slight Puncture Site Rr pCO2 44 (35-45) mm/Hg pO2 79 L (80-100) mm/Hg HCO3 22.2 (21-28) mmol/L ABG pH 7.32 L (7.35-7.45) ABG Total CO2 24.1 (22-28) mmol/L ABG O2 Saturation 97.1 (95-98) % ABG Base Excess -3.4 L (-2.0-3.0) mmol/L ABG Hemoglobin 11.0 L (11.7-17.4) g/dL ABG Carboxyhemoglobin 1.2 (0.5-1.5) % POC ABG HHb (Measured) 2.8 (0.0-5.0) % ABG Methemoglobin 1.4 (0.0-3.0) % Nicolas Test Pos A-a O2 Difference 579.0 mm/Hg Respiratory Index 7.3 Hgb O2 Saturation 94.6 L (95.0-98.0) % Vent Mode Prvc Mechanical Rate 24 FiO2 100.0 % Tidal Volume 500 PEEP 10 Sodium 136 (132-148) mmol/L Potassium 3.6 (3.6-5.2) mmol/L Chloride 97 L (98-107) mmol/L Carbon Dioxide 22 (22-30) mmol/L Anion Gap 21 H (10-20) BUN 66 H (9-20) mg/dL Creatinine 4.9 H (0.8-1.5) MG/DL Est GFR ( Amer) 16 Est GFR (Non-Af Amer) 13 Random Glucose 96 (75-110) mg/dL Calcium 6.4 L (8.6-10.4) mg/dl Phosphorus 6.7 H (2.5-4.5) mg/dL Magnesium 2.1 (1.6-2.3) mg/dL Total Bilirubin 3.7 H (0.2-1.3) mg/dL AST 182 H D (17-59) U/L ALT 75 H D (21-72) U/L Alkaline Phosphatase 45 (38-126) U/L Total Creatine Kinase (55-170) U/L Total Protein 6.3 (6.3-8.3) g/dL Albumin 2.6 L (3.5-5.0) g/dL Globulin 3.7 (2.2-3.9) gm/dL Albumin/Globulin Ratio 0.7 L (1.0-2.1) Random Vancomycin ug/mL Blood Type Antibody Screen Laboratory Results - last 24 hr 10/23/16 10/23/16 10/23/16 05:27 06:13 06:13 WBC 7.8 RBC 3.11 L Hgb 10.2 L Hct 30.7 L MCV 98.6 H MCH 32.8 H MCHC 33.2 RDW 15.0 H Plt Count 46 L MPV 10.6 Neut % (Auto) 88.9 H Lymph % (Auto) 7.2 L Graves % (Auto) 3.6 Eos % (Auto) 0.2 Baso % (Auto) 0.1 Neut # 7.0 Lymph # 0.6 L Graves # 0.3 Eos # 0.0 Baso # 0.0 Neutrophils % (Manual) 36 L Band Neutrophils % 43 H* Lymphocytes % (Manual) 11 L Monocytes % (Manual) 8 Metamyelocytes % 2 H Platelet Estimate Decreased L Anisocytosis (manual) Slight Puncture Site Rr pCO2 44 pO2 79 L HCO3 22.2 ABG pH 7.32 L ABG Total CO2 24.1 ABG O2 Saturation 97.1 ABG Base Excess -3.4 L ABG Hemoglobin 11.0 L ABG Carboxyhemoglobin 1.2 POC ABG HHb (Measured) 2.8 ABG Methemoglobin 1.4 Nicolas Test Pos A-a O2 Difference 579.0 Respiratory Index 7.3 Hgb O2 Saturation 94.6 L Vent Mode Prvc Mechanical Rate 24 FiO2 100.0 Tidal Volume 500 PEEP 10 Sodium 136 Potassium 3.6 Chloride 97 L Carbon Dioxide 22 Anion Gap 21 H BUN 66 H Creatinine 4.9 H Est GFR ( Amer) 16 Est GFR (Non-Af Amer) 13 Random Glucose 96 Calcium 6.4 L Phosphorus 6.7 H Magnesium 2.1 Total Bilirubin 3.7 H AST 182 H D ALT 75 H D Alkaline Phosphatase 45 Total Creatine Kinase Total Protein 6.3 Albumin 2.6 L Globulin 3.7 Albumin/Globulin Ratio 0.7 L Random Vancomycin Blood Type Antibody Screen 10/23/16 10/23/16 10/23/16 06:13 10:31 17:41 WBC RBC Hgb Hct MCV MCH MCHC RDW Plt Count MPV Neut % (Auto) Lymph % (Auto) Graves % (Auto) Eos % (Auto) Baso % (Auto) Neut # Lymph # Graves # Eos # Baso # Neutrophils % (Manual) Band Neutrophils % Lymphocytes % (Manual) Monocytes % (Manual) Metamyelocytes % Platelet Estimate Anisocytosis (manual) Puncture Site pCO2 pO2 HCO3 ABG pH ABG Total CO2 ABG O2 Saturation ABG Base Excess ABG Hemoglobin ABG Carboxyhemoglobin POC ABG HHb (Measured) ABG Methemoglobin Nicolas Test A-a O2 Difference Respiratory Index Hgb O2 Saturation Vent Mode Mechanical Rate FiO2 Tidal Volume PEEP Sodium Potassium Chloride Carbon Dioxide Anion Gap BUN Creatinine Est GFR ( Amer) Est GFR (Non-Af Amer) Random Glucose Calcium Phosphorus Magnesium Total Bilirubin AST ALT Alkaline Phosphatase Total Creatine Kinase 484 H Total Protein Albumin Globulin Albumin/Globulin Ratio Random Vancomycin 20.43 Blood Type B POSITIVE Antibody Screen Negative Attending/Attestation - Attestation I have personally seen and examined this patient.: Yes I have fully participated in the care of the patient.: Yes I have reviewed all pertinent clinical information: Yes Notes (Text): 10/23/16 19:13 I have seen and examined the patient. Medical records, lab studies, and imaging were reviewed by me and a management plan was formulated on multidisciplinary rounds with resident Dr. Wilde. I agree with their above documented assessment and plan. Patient is in acute oliguric renal failure, will need dilaysis. CT angio negative for PE, large RUL pneumonia, will need Bronch. Critical Care Time 80 minutes. Multi-disciplinary rounds were performed with house staff, nursing, speech therapy, respiratory therapy, pharmacy and nutrition with integrated input from the primary team/attending and other consulting services. The documented time is cumulative and includes review of patient data/exams/labs/chart review and examination of the patient on rounds and throughout the day; time is exclusive of any procedures or teaching time.
--- NOTE | 2016-10-23 17:33 | PCM.PROC ---
<Simran Wilde - Last Filed: 10/23/16 17:29> Procedures Attestation:: I certify that I have explained the specified Operation(s) or Procedure(s), risks, benefits and reasonable alternatives to the Patient and/or other person responsible. The opportunity was given to ask questions and all questions answered - Central Line Placement Right Femoral Hemodialysis Access Aseptic technique was employed throughout the procedure: Hand Hygiene done prior to procedure, Full sterile barriers (mask, hair cover, sterile gown, sterile gloves), Full body sterile drape, Chloraprep Antiseptic: 30 second prep for IJ or SC sites, Chloraprep Antiseptic: 2 minute prep for Femoral CVP Time Out Performed: Yes Pt. Placed on Pulse Ox Monitor: Yes Central Line Prep: Chlorhexidine-Alcohol Combination Local Anesthesia Used: Lidocaine 1% Ultrasound Used for Placement: Yes Central Line Lumen Inserted: triple Central Line Length: 20 cm Post Procedure: Sutured in Place, Good Blood Return, All Ports Aspirated, Flushed, Capped, Sterile Dressing Applied Secured by: Securement device Post procedure dressing: Clear vapor permeable, Chlorhexidine disc (Biopatch) Post Procedure X-Ray: No Patient Tolerated Procedure: Well, No Complications Immediate Complications: None <Nitish Armstrong - Last Filed: 10/23/16 18:34> Attending/Attestation - Attestation I have personally seen and examined this patient.: Yes I have fully participated in the care of the patient.: Yes I have reviewed all pertinent clinical information, including history, physical exam and plan: Yes Notes (Text): 10/23/16 18:33 This procedure was performed with resident Dr. Wilde, under my supervision with my participation in the procedure. Procedure performed successfully with no complications.
--- NOTE | 2016-10-23 17:37 | CT ---
PROCEDURE: CT Chest with contrast (Pulmonary Angiogram) HISTORY: r/o PE COMPARISON: None available. TECHNIQUE: Axial computed tomography images were obtained of the chest in the pulmonary arterial phase of enhancement. Coronal and sagittal reformatted images were created and reviewed. Intravenous contrast dose: 100 mL Visipaque 320 Radiation dose: Total exam DLP = 644.58 mGy-cm. This CT exam was performed using one or more of the following dose reduction techniques: Automated exposure control, adjustment of the mA and/or kV according to patient size, and/or use of iterative reconstruction technique. FINDINGS: PULMONARY ARTERIES: Evaluation grossly limited. Patient unable to raise arms overhead. Beam hardening artifact. Suboptimal timing of scan relative to contrast bolus. Patient motion artifact. Cannot rule out pulmonary embolism. No large central pulmonary embolus in the main, right and left and lobar vessels. Segmental and subsegmental vessels are not adequately evaluated on the basis of this examination. AORTA: No acute findings. No thoracic aortic aneurysm. LUNGS: Extensive bilateral lower lobe consolidation. Extensive right upper lobe consolidation. Patchy opacity in right middle lobe and in lingular segment left upper lobe as well as anterior and apical posterior segments. PLEURAL SPACES: Small to moderate left and small right pleural effusion. HEART: Normal heart size. Coronary arterial calcification. No pericardial effusion. Endotracheal tube tip approximately 4.9 cm above tracheal sarah. Nasogastric tube noted. LYMPH NODES: No lymphadenopathy. BONES, CHEST WALL: Unremarkable. No fracture or destructive lesion OTHER FINDINGS: Nodular hepatic contour with relative atrophy of right lobe, consistent with hepatic cirrhosis. There is evidence of ascites. IMPRESSION: Limited examination for pulmonary embolism. No large central pulmonary embolus identified. Extensive pulmonary consolidation involving both lower lobes as well as right upper lobe. Patchy infiltrates in the left upper lobe and right middle lobe. Bilateral pleural effusion. ET tube. NG tube. Hepatic cirrhosis. Ascites.
[2016-10-23] MEDS ORDERED: Folic Acid 1 MG, Thiamine 100 MG, Multivitamin (MVI) 10 ML in Dextrose 5% In Water 1,00... IV SCH (18:26)
[2016-10-24] MEDS: Albuterol 0.042% Inhal Sol (1.25 mg/3 mL) UD INH SCH ×5 (01:06→21:44)
[2016-10-24] MEDS: Midazolam 2 MG/2 ML VIAL IVP PRN ×4 (01:15→22:00)
[2016-10-24] MEDS: cefTRIAXone IV 1 gm in Dextros 50 ML IVPB SCH ×2 (02:30→13:59)
[2016-10-24 04:33] LABS: ABG MECHANICAL RATE 24; ARTERIAL BLOOD GAS MODE PRVC; ARTERIAL BLOOD HGB O2 SAT 97.1 % (95.0-98.0); ATERIAL BLOOD GAS PEEP 10; CARBOXYHEMOGLOBIN 1.1 % (0.5-1.5); DRAW SITE LB; HHB 0.5 % (0.0-5.0); METHEMOGLOBIN 1.3 % (0.0-3.0)
[2016-10-24 06:44] LABS: BASO % 0.3 % (0.0-2.0); EOS # 0.1 K/uL (0.0-0.7); EOS % 0.7 % (0.0-4.0); HEMATOCRIT 29.8 % (35.0-51.0); LYMPH # 0.6 K/uL (1.0-4.3); LYMPH % 6.9 % (20.0-40.0); MEAN CELL VOLUME 97.3 fL (80.0-94.0); MEAN CORPUSCULAR HEMOGLOBIN 32.2 pg (27.0-31.0); MEAN CORPUSCULAR HGB CONC 33.1 g/dL (33.0-37.0); MEAN PLATELET VOLUME 9.7 fL (7.2-11.7); MONO # 0.6 K/uL (0.0-0.8); MONO % 7.7 % (0.0-10.0); PLATELET COUNT 47 K/uL (130-400); RED CELL DISTRIBUTION WIDTH 14.7 % (11.5-14.5); WHITE BLOOD COUNT 8.4 K/uL (4.8-10.8)
[2016-10-24 07:04] LABS: ALB/GLOB RATIO 0.7 (1.0-2.1); BILIRUBIN,TOTAL 3.5 mg/dL (0.2-1.3); CALCIUM 7.2 mg/dl (8.6-10.4); MAGNESIUM 2.4 mg/dL (1.6-2.3); POTASSIUM 3.3 mmol/L (3.6-5.2); TOTAL PROTEIN 6.4 g/dL (6.3-8.3)
[2016-10-24] MEDS: Ammonium Lactate 12% Lotion (225 g) EXT SCH ×2 (09:06→17:57)
--- NOTE | 2016-10-24 09:34 | RAD ---
HISTORY: intubated COMPARISON: Comparison made with the chest radiograph 10/23/2016 0700 hrs as well as CTA of the chest 10/23/2016 at 1632 hours FINDINGS: LUNGS: In situ ETT, tip of which lies approximately 6.52 cm above sarah. Right IJ central venous line with tip in the SVC. In situ NGT, the tip of which poorly seen though appears to lie in left upper quadrant of the abdomen Large area of dense consolidation right upper lobe with lesser on infiltrate changes right lower lobe. Left lower lobe atelectasis/infiltrate and effusion. . PLEURA: No significant pleural effusion identified, no pneumothorax apparent. CARDIOVASCULAR: Normal. OSSEOUS STRUCTURES: No significant abnormalities. VISUALIZED UPPER ABDOMEN: Normal. OTHER FINDINGS: None. IMPRESSION: Support lines and tubes in satisfactory position as above. Large area of dense consolidation right upper lobe with lesser on infiltrate changes right lower lobe. Left lower lobe atelectasis/infiltrate and effusion. .
[2016-10-24 09:41] LABS: EOSINOPHIL 1 % (0-4); NEUTROPHIL 79 % (50-75); NUCLEATED RED BLOOD CELL 1 % (0-0); TOTAL CELLS COUNTED 100
[2016-10-24 09:43] LABS: GIANT PLATELETS PRESENT; LARGE PLATELETS PRESENT
[2016-10-24] MEDS ORDERED: Albumin Human 25% (12.5 gm/50 ml) IV SCH (10:00)
[2016-10-24] MEDS ORDERED: Midazolam 2 MG/2 ML VIAL IVP ONE (10:40)
[2016-10-24] MEDS ORDERED: Midazolam 2 MG/2 ML VIAL ONE (10:43)
[2016-10-24] MEDS: Dexmedetomidine Hydrochloride 200 MCG in Sodium Chloride 0.9% 48 ML IV PRN ×4 (10:49→23:30)
--- NOTE | 2016-10-24 11:14 | CP.PCM.PN ---
Subjective - Date & Time of Evaluation Date of Evaluation: 10/24/16 Time of Evaluation: 10:50 - Subjective Subjective: Intubated on ventilator support. Sedated BP 126/64, HR 94/min Objective - Vital Signs/Intake and Output Vital Signs (last 24 hours): Temp Pulse Resp BP Pulse Ox 99 F 95 H 25 H 103/66 96 10/24/16 08:00 10/24/16 07:01 10/24/16 07:01 10/24/16 07:01 10/24/16 07:01 Intake and Output: 10/24/16 10/24/16 06:59 18:59 Intake Total 2154.5 380 Output Total 170 145 Balance 1984.5 235 - Medications Medications: Current Medications Albuterol Sulfate (Albuterol 0.042% Inhal Nikky (1.25mg/3ml) Ud) 1.25 mg INH RQ6 [facility] Last Admin: 10/24/16 07:42 Dose: 1.25 mg Famotidine (Pepcid) 20 mg IVP DAILY [facility] Last Admin: 10/24/16 09:06 Dose: 20 mg Sodium Chloride (Sodium Chloride 0.9%) 1,000 mls @ 75 mls/hr IV .[id number] [facility] Last Admin: 10/23/16 16:09 Dose: 75 mls/hr Ceftriaxone Sodium (Rocephin Iv 1 Gm Duplex) 50 mls @ 100 mls/hr IVPB Q12H [facility] Last Admin: 10/24/16 02:30 Dose: 100 mls/hr Folic Acid 1 mg/ Thiamine HCl 100 mg/ Multivitamins/Vitamin C 10 ml/ Dextrose 1 ,011.2 mls @ 50 mls/hr IV DAILY@1900 [facility] Last Admin: 10/23/16 20:00 Dose: 50 mls/hr Dexmedetomidine HCl 200 mcg/ (Sodium Chloride) 50 mls @ 4.96 mls/hr IV TITR PRN ; Protocol; 0.2 MCG/KG/HR PRN Reason: Agitation Last Admin: 10/24/16 10:49 Dose: 0.2 mcg/kg/hr, 4.96 mls/hr Vancomycin HCl 1 gm/ Sodium (Chloride) 250 mls @ 166.7 mls/hr IVPB STAT STA Stop: 10/24/16 12:00 Lactic Acid (Lac-Hydrin 12% Lotion (225 G)) 0 gm EXT BID [facility] Last Admin: 10/24/16 09:06 Dose: 1 applic Midazolam HCl (Versed Inj) 2 mg IVP Q4H PRN PRN Reason: Agitation Last Admin: 10/24/16 10:14 Dose: 2 mg - Labs Labs: 10/24/16 06:41 10/24/16 06:41 PT 18.5 SECONDS (9.7-12.2) H 10/21/16 11:04 INR 1.6 10/21/16 11:04 APTT 37 SECONDS (21-34) H 10/21/16 11:04 - Respiratory Exam Additional comments: Lungs clear ant. No wheezing or rhonchi - Cardiovascular Exam Cardiovascular Exam: REGULAR RHYTHM Additional comments: sinus rythm - GI/Abdominal Exam GI & Abdominal Exam: Distended - Extremities Exam Additional comments: No pedal edema Assessment and Plan - Assessment and Plan (Free Text) Assessment: Lisa. remains anuric Dialysis was tolerated well yesterday Second dialysis is ordered for today Sepsis Pneumonia, resiratory failure Sepsis. Strep. pneumoniae in blood Alcoholism, Liver cirrhosis, thrombocytopenia Plan: Scheduled for dialysis today. UF as tolerated monitor Vanco levels
--- NOTE | 2016-10-24 16:26 | CP.PCM.PN ---
Subjective - Date & Time of Evaluation Date of Evaluation: 10/24/16 Time of Evaluation: 13:00 - Subjective Subjective: Patient was seen and examined in ICU He is intubated and sedated Objective - Vital Signs/Intake and Output Vital Signs (last 24 hours): Temp Pulse Resp BP Pulse Ox 98.4 F 83 27 H 94/61 L 95 10/24/16 16:00 10/24/16 15:34 10/24/16 15:34 10/24/16 15:34 10/24/16 15:34 Intake and Output: 10/24/16 10/24/16 06:59 18:59 Intake Total 2154.5 1058.1 Output Total 170 280 Balance 1984.5 778.1 - Medications Medications: Current Medications Albumin Human (Albumin Human 25% (12.5 Gm/50 Ml)) 12.5 gm IV TTS [facility] Albuterol Sulfate (Albuterol 0.042% Inhal Nikky (1.25mg/3ml) Ud) 1.25 mg INH RQ6 [facility] Last Admin: 10/24/16 13:13 Dose: 1.25 mg Famotidine (Pepcid) 20 mg IVP DAILY [facility] Last Admin: 10/24/16 09:06 Dose: 20 mg Sodium Chloride (Sodium Chloride 0.9%) 1,000 mls @ 75 mls/hr IV .[id number] [facility] Last Admin: 10/23/16 16:09 Dose: 75 mls/hr Ceftriaxone Sodium (Rocephin Iv 1 Gm Duplex) 50 mls @ 100 mls/hr IVPB Q12H [facility] Last Admin: 10/24/16 13:59 Dose: 100 mls/hr Folic Acid 1 mg/ Thiamine HCl 100 mg/ Multivitamins/Vitamin C 10 ml/ Dextrose 1 ,011.2 mls @ 50 mls/hr IV DAILY@1900 [facility] Last Admin: 10/23/16 20:00 Dose: 50 mls/hr Dexmedetomidine HCl 200 mcg/ (Sodium Chloride) 50 mls @ 4.96 mls/hr IV TITR PRN ; Protocol; 0.2 MCG/KG/HR PRN Reason: Agitation Last Admin: 10/24/16 10:49 Dose: 0.2 mcg/kg/hr, 4.96 mls/hr Lactic Acid (Lac-Hydrin 12% Lotion (225 G)) 0 gm EXT BID [facility] Last Admin: 10/24/16 09:06 Dose: 1 applic Midazolam HCl (Versed Inj) 2 mg IVP Q4H PRN PRN Reason: Agitation Last Admin: 10/24/16 10:14 Dose: 2 mg - Labs Labs: 10/24/16 06:41 10/24/16 06:41 PT 18.5 SECONDS (9.7-12.2) H 10/21/16 11:04 INR 1.6 10/21/16 11:04 APTT 37 SECONDS (21-34) H 10/21/16 11:04 - Head Exam Head Exam: ATRAUMATIC, NORMOCEPHALIC - Eye Exam Eye Exam: Normal appearance - ENT Exam ENT Exam: Mucous Membranes Moist - Neck Exam Neck Exam: Normal Inspection - Respiratory Exam Respiratory Exam: Clear to Ausculation Bilateral Additional comments: Intubated with the ventilator support. - Cardiovascular Exam Cardiovascular Exam: REGULAR RHYTHM, +S1, +S2 - GI/Abdominal Exam GI & Abdominal Exam: Soft. absent: Tenderness - Extremities Exam Extremities Exam: absent: Pedal Edema - Neurological Exam Additional comments: Patient is unable to respond to any Kaman's because intubated and sedated. Assessment and Plan (1) Alcohol withdrawal Status: Acute (2) Hypoxemia Status: Acute (3) Pneumonia Status: Acute (4) Respiratory distress Status: Acute (5) Seizure disorder Status: Acute (6) Sepsis Status: Acute (7) Thrombocythemia Status: Chronic (8) Psoriasis Status: Acute (9) Renal failure Status: Acute - Assessment and Plan (Free Text) Plan: Continue current management as per [facility] pitts for delirium tremens Patient has had developed acute renal failure and he has received 1 treatment of dialysis yesterday Patient to receive another treatment of dialysis today I discussed the plan of care with the ICU team and continue management as per the ICU team.
--- NOTE | 2016-10-24 16:52 | US ---
PROCEDURE: Renal ultrasound dated 10/24/2016 HISTORY: RUPALI COMPARISON: Limited portable abdominal ultrasound. TECHNIQUE: Sonogram of the kidneys. FINDINGS: RIGHT KIDNEY: Measures approximately 13.7 x 6.9 x 6.9 cm. There is a midpole upper/midpole nonobstructing calculus measuring 1.3 cm. No evidence of hydronephrosis. The renal parenchyma appears grossly unremarkable. No obvious parenchymal mass or collection. LEFT KIDNEY: Left kidney is poorly seen. Left kidney measures approximately 14.1 x 6.8 x 6.0 cm. No renal mass collection or calcification. No evidence hydronephrosis OTHER FINDINGS: Evaluation of the bladder is somewhat limited due to incomplete distention. Abdominal ascites present. . Suspect hepatic cyst measuring 6.7 x 5.1 x 7.2 cm. IMPRESSION: Limited study. Nonobstructing calculus upper/midpole right kidney. Abdominal ascites. Probable hepatic cyst.
[2016-10-24] MEDS: Folic Acid 1 MG, Thiamine 100 MG, Multivitamin (MVI) 10 ML in Dextrose 5% In Water 1,00... IV SCH (19:18)
--- NOTE | 2016-10-24 21:39 | CP.CCUPN ---
CCU Subjective - Physician Review Events Since Last Encounter (Free Text): 10/24/16 21:37 Patient is an alcoholic disorder, LIVER disease, admitted with acute respiratory failure, cardiac arrest. Currently patient the left acute pneumococcal pneumonia. Complicated with multiorgan failure including respiratory failure, renal insufficiency. Patient got hemodialysis today. Emergency patient had a right-sided femoral hemolysis catheter was changed. Patient is currently on antibiotic. I vancomycin added. Will closely monitor the patient. Overall prognosis is guarded. Currently patient is needing 80% FiO2. Echocardiogram pending at this time. Patient is on Rocephin currently, Vanco IV. DVT and GI prophylaxis. Sedation. We'll follow the patient CCU Objective - Vital Signs / Intake & Output Vital Signs (Last 4 hours): Vital Signs Temp Pulse Pulse Resp BP BP BP 10/24/16 20:55 76 25 H 82/54 L 10/24/16 20:50 76 27 H 82/54 L 10/24/16 20:40 82/52 L 10/24/16 20:25 89/56 L 10/24/16 20:10 89/52 L 10/24/16 20:00 97.8 F 10/24/16 19:55 102/68 10/24/16 19:50 93 H 28 H 102/68 10/24/16 19:40 102/61 10/24/16 19:25 88/52 L 10/24/16 19:10 102/62 10/24/16 18:55 111/75 10/24/16 18:49 94 H 24 111/75 10/24/16 18:40 116/72 10/24/16 18:31 103 H 25 H 124/82 10/24/16 18:25 124/82 10/24/16 18:20 94 H 27 H 114/78 10/24/16 18:17 97 H 31 H 116/73 10/24/16 18:10 116/73 10/24/16 18:04 83 27 H 95/59 L Pulse Ox 10/24/16 20:55 97 10/24/16 20:50 96 10/24/16 20:40 10/24/16 20:25 10/24/16 20:10 10/24/16 20:00 10/24/16 19:55 10/24/16 19:50 94 L 10/24/16 19:40 10/24/16 19:25 10/24/16 19:10 10/24/16 18:55 10/24/16 18:49 92 L 10/24/16 18:40 10/24/16 18:31 92 L 10/24/16 18:25 10/24/16 18:20 95 10/24/16 18:17 93 L 10/24/16 18:10 10/24/16 18:04 94 L Intake and Output (Last 8hrs): Intake & Output 10/24/16 10/24/16 10/24/16 06:59 14:59 22:59 Intake Total 1303.5 942.9 298.6 Output Total 115 245 103 Balance 1188.5 697.9 195.6 Weight 218 lb 11.177 oz 224 lb 13.944 oz Intake: IV 50 Intake, IV Amount 612.5 692.9 78.6 Right Proximal Port 612.5 675 Internal Jugular Right jugular TLC medial 17.9 78.6 port Oral 50 50 Tube Feeding 160 200 120 Blood Product 431 Apheresis Platelets Acda 431 Lr Unit [id number] Other 100 Apheresis Platelets Acda 50 Lr Unit [id number] Output: Urine 115 245 100 Urethral (Walters) 115 245 100 Stool 3 Other: # Bowel Movements 1 1 - Physical Exam Head: Positive for: Atraumatic, Normocephalic Respiratory/Chest: Positive for: Decreased Breath Sounds, Other (intubated ) Cardiovascular: Positive for: Normal S1, S2, Tachycardic Abdomen: Positive for: Distention, Normal Bowel Sounds Genitourinary Male: Positive for: Other (walters in place) Upper Extremity: Negative for: Edema Lower Extremity: Negative for: Edema Neurological: Negative for: GCS=15, Speech Normal (patient is intubated) Skin: Positive for: Other (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, bilateral upper extremities, and in gluteal fold.) Psychiatric: Positive for: Alert - Medications Active Medications: Active Medications Generic Name Dose Route Start Last Admin Trade Name Freq PRN Reason Stop Dose Admin Albumin Human 12.5 gm 10/24/16 10:00 10/24/16 19:23 Albumin Human 25% (12.5 Gm/50 Ml) IV 12.5 gm TTS [facility] Administration Albuterol Sulfate 1.25 mg 10/22/16 14:00 10/24/16 20:04 Albuterol 0.042% Inhal Nikky (1.25mg/3ml) Ud INH Not Given RQ6 [facility] Famotidine 20 mg 10/21/16 14:30 10/24/16 09:06 Pepcid IVP 20 mg DAILY [facility] Administration Sodium Chloride 1,000 mls @ 75 mls/hr 10/22/16 11:30 10/23/16 16:09 Sodium Chloride 0.9% IV 75 mls/hr .[id number] [facility] Administration Ceftriaxone Sodium 50 mls @ 100 mls/hr 10/23/16 13:30 10/24/16 13:59 Rocephin Iv 1 Gm Duplex IVPB 100 mls/hr Q12H [facility] Administration Folic Acid 1 mg/ Thiamine HCl 1,011.2 mls @ 50 mls/hr 10/23/16 19:00 19:18 100 mg/ Multivitamins/Vitamin IV Not Given C 10 ml/ Dextrose DAILY@1900 [facility] Dexmedetomidine HCl 200 mcg/ 50 mls @ 4.96 mls/hr 10/24/16 10:25 10/24/16 21: 04 Sodium Chloride IV 0.8 mcg/kg/hr TITR PRN 19.84 mls/hr Agitation Titration Protocol 0.2 MCG/KG/HR Lactic Acid 0 gm 10/22/16 13:00 10/24/16 17:57 Lac-Hydrin 12% Lotion (225 G) EXT 1 applic BID [facility] Administration Midazolam HCl 2 mg 10/22/16 19:22 10/24/16 17:57 Versed Inj IVP 2 mg Q4H PRN Administration Agitation - Patient Studies Lab Studies: Microbiology Studies 10/21/16 14:00 Blood Culture - Final Blood Streptococcus Pneumoniae Gram Stain - Final Lab Studies 10/24/16 10/24/16 10/24/16 Range/Units 06:41 06:41 04:15 WBC 8.4 (4.8-10.8) K/uL RBC 3.06 L (4.40-5.90) Mil/uL Hgb 9.9 L (12.0-18.0) g/dL Hct 29.8 L (35.0-51.0) % MCV 97.3 H (80.0-94.0) fL MCH 32.2 H (27.0-31.0) pg MCHC 33.1 (33.0-37.0) g/dL RDW 14.7 H (11.5-14.5) % Plt Count 47 L (130-400) K/uL MPV 9.7 (7.2-11.7) fL Neut % (Auto) 84.4 H (50.0-75.0) % Lymph % (Auto) 6.9 L (20.0-40.0) % Spencer % (Auto) 7.7 (0.0-10.0) % Eos % (Auto) 0.7 (0.0-4.0) % Baso % (Auto) 0.3 (0.0-2.0) % Neut # 7.1 H (1.8-7.0) K/uL Lymph # 0.6 L (1.0-4.3) K/uL Spencer # 0.6 (0.0-0.8) K/uL Eos # 0.1 (0.0-0.7) K/uL Baso # 0.0 (0.0-0.2) K/uL Neutrophils % (Manual) 79 H (50-75) % Band Neutrophils % 4 H (0-2) % Lymphocytes % (Manual) 9 L (20-40) % Monocytes % (Manual) 7 (0-10) % Eosinophils % (Manual) 1 (0-4) % Nucleated RBC % 1 H (0-0) % Platelet Estimate Markedly decreased L (NORMAL) Large Platelets Present Giant Platelets Present Polychromasia Slight Hypochromasia (manual) Slight Anisocytosis (manual) Slight Puncture Site Lb pCO2 41 (35-45) mm/Hg pO2 127 H (80-100) mm/Hg HCO3 24.2 (21-28) mmol/L ABG pH 7.38 (7.35-7.45) ABG Total CO2 25.6 (22-28) mmol/L ABG O2 Saturation 99.5 H (95-98) % ABG Base Excess -0.9 (-2.0-3.0) mmol/L ABG Hemoglobin 15.9 (11.7-17.4) g/dL ABG Carboxyhemoglobin 1.1 (0.5-1.5) % POC ABG HHb (Measured) 0.5 (0.0-5.0) % ABG Methemoglobin 1.3 (0.0-3.0) % Nicolas Test Na A-a O2 Difference 463.0 mm/Hg Respiratory Index 3.6 Hgb O2 Saturation 97.1 (95.0-98.0) % Vent Mode Prvc Mechanical Rate 24 FiO2 90.0 % Tidal Volume 500 PEEP 10 Sodium 138 (132-148) mmol/L Potassium 3.3 L (3.6-5.2) mmol/L Chloride 99 (98-107) mmol/L Carbon Dioxide 26 (22-30) mmol/L Anion Gap 16 (10-20) BUN 60 H (9-20) mg/dL Creatinine 4.9 H (0.8-1.5) MG/DL Est GFR ( Amer) 16 Est GFR (Non-Af Amer) 13 Random Glucose 102 (75-110) mg/dL Calcium 7.2 L (8.6-10.4) mg/dl Phosphorus 5.0 H (2.5-4.5) mg/dL Magnesium 2.4 H (1.6-2.3) mg/dL Total Bilirubin 3.5 H (0.2-1.3) mg/dL AST 231 H D (17-59) U/L ALT 83 H (21-72) U/L Alkaline Phosphatase 98 (38-126) U/L Total Protein 6.4 (6.3-8.3) g/dL Albumin 2.6 L (3.5-5.0) g/dL Globulin 3.8 (2.2-3.9) gm/dL Albumin/Globulin Ratio 0.7 L (1.0-2.1) Laboratory Results - last 24 hr 10/24/16 10/24/16 10/24/16 04:15 06:41 06:41 WBC 8.4 RBC 3.06 L Hgb 9.9 L Hct 29.8 L MCV 97.3 H MCH 32.2 H MCHC 33.1 RDW 14.7 H Plt Count 47 L MPV 9.7 Neut % (Auto) 84.4 H Lymph % (Auto) 6.9 L Spencer % (Auto) 7.7 Eos % (Auto) 0.7 Baso % (Auto) 0.3 Neut # 7.1 H Lymph # 0.6 L Spencer # 0.6 Eos # 0.1 Baso # 0.0 Neutrophils % (Manual) 79 H Band Neutrophils % 4 H Lymphocytes % (Manual) 9 L Monocytes % (Manual) 7 Eosinophils % (Manual) 1 Nucleated RBC % 1 H Platelet Estimate Markedly decreased L Large Platelets Present Giant Platelets Present Polychromasia Slight Hypochromasia (manual) Slight Anisocytosis (manual) Slight Puncture Site Lb pCO2 41 pO2 127 H HCO3 24.2 ABG pH 7.38 ABG Total CO2 25.6 ABG O2 Saturation 99.5 H ABG Base Excess -0.9 ABG Hemoglobin 15.9 ABG Carboxyhemoglobin 1.1 POC ABG HHb (Measured) 0.5 ABG Methemoglobin 1.3 Nicolas Test Na A-a O2 Difference 463.0 Respiratory Index 3.6 Hgb O2 Saturation 97.1 Vent Mode Prvc Mechanical Rate 24 FiO2 90.0 Tidal Volume 500 PEEP 10 Sodium 138 Potassium 3.3 L Chloride 99 Carbon Dioxide 26 Anion Gap 16 BUN 60 H Creatinine 4.9 H Est GFR ( Amer) 16 Est GFR (Non-Af Amer) 13 Random Glucose 102 Calcium 7.2 L Phosphorus 5.0 H Magnesium 2.4 H Total Bilirubin 3.5 H AST 231 H D ALT 83 H Alkaline Phosphatase 98 Total Protein 6.4 Albumin 2.6 L Globulin 3.8 Albumin/Globulin Ratio 0.7 L
[2016-10-25] MEDS: Dexmedetomidine Hydrochloride 200 MCG in Sodium Chloride 0.9% 48 ML IV PRN ×11 (01:00→23:28)
[2016-10-25] MEDS: Albuterol 0.042% Inhal Sol (1.25 mg/3 mL) UD INH SCH ×4 (01:14→20:28)
[2016-10-25] MEDS: Midazolam 2 MG/2 ML VIAL IVP PRN ×2 (01:50→08:45)
[2016-10-25] MEDS: cefTRIAXone IV 1 gm in Dextros 50 ML IVPB SCH ×2 (01:51→14:03)
[2016-10-25] MEDS: Sodium Chloride 0.9% 1,000 ML IV SCH (05:58)
[2016-10-25 06:00] LABS: ABG ALLEN TEST POS; ABG MECHANICAL RATE 24; ARTERIAL BLOOD GAS MODE PRVC; ARTERIAL BLOOD HGB O2 SAT 92.9 % (95.0-98.0); ATERIAL BLOOD GAS PEEP 10; CARBOXYHEMOGLOBIN 1.9 % (0.5-1.5); DRAW SITE RR; HHB 4.2 % (0.0-5.0)
[2016-10-25 06:14] LABS: BASO % 0.3 % (0.0-2.0); EOS % 0.2 % (0.0-4.0); LYMPH # 0.7 K/uL (1.0-4.3); MEAN CELL VOLUME 97.4 fL (80.0-94.0); MEAN CORPUSCULAR HEMOGLOBIN 32.2 pg (27.0-31.0); MEAN PLATELET VOLUME 10.4 fL (7.2-11.7); MONO # 0.8 K/uL (0.0-0.8); MONO % 6.8 % (0.0-10.0); NRBC % 0.1 % (0.0-2.0); PLATELET COUNT 48 K/uL (130-400); RED CELL DISTRIBUTION WIDTH 15.1 % (11.5-14.5); WHITE BLOOD COUNT 11.5 K/uL (4.8-10.8)
[2016-10-25 06:35] LABS: ALB/GLOB RATIO 0.7 (1.0-2.1); BILIRUBIN,TOTAL 3.8 mg/dL (0.2-1.3); CALCIUM 7.2 mg/dl (8.6-10.4); MAGNESIUM 2.3 mg/dL (1.6-2.3); PHOSPHOROUS 5.5 mg/dL (2.5-4.5); POTASSIUM 4.1 mmol/L (3.6-5.2); TOTAL PROTEIN 6.6 g/dL (6.3-8.3)
[2016-10-25] MEDS: Midazolam 50 mg/10 ml 100 MG in Dextrose 5% In Water 80 ML IV SCH (09:07)
--- NOTE | 2016-10-25 09:14 | RAD ---
HISTORY: pneumonia COMPARISON: Comparison made with prior study 10/24/2016 FINDINGS: LUNGS: In situ ETT, tip which lies approximately 5.75 cm above sarah. There is also in situ NGT, the tip of which overlies left upper quadrant of the abdomen. Right right chamber central venous line with tip in the SVC. There has been progression of the infiltrate changes throughout the right upper and right lower lung cameron with patchy infiltrates in the left mid to lower lung field. . Bilateral effusions are present. PLEURA: As above. No pneumothorax apparent. CARDIOVASCULAR: Normal. OSSEOUS STRUCTURES: No significant abnormalities. VISUALIZED UPPER ABDOMEN: Normal. OTHER FINDINGS: None. IMPRESSION: Support lines and tubes as above. Progression of infiltrates throughout right upper and lower lobes. Infiltrate changes are also seen in the left mid to lower lung field. Bilateral effusions.
[2016-10-25 09:28] LABS: NEUTROPHIL 80 % (50-75); NUCLEATED RED BLOOD CELL 2 % (0-0); TOTAL CELLS COUNTED 100
[2016-10-25] MEDS ORDERED: Thiamine 100 mg/ml Inj IV SCH (10:00)
[2016-10-25] MEDS: Ammonium Lactate 12% Lotion (225 g) EXT SCH ×2 (10:02→18:29)
[2016-10-25] MEDS: Acetaminophen 650mg/20.3ml solution UD PO PRN (12:15)
--- NOTE | 2016-10-25 12:30 | CP.PCM.PN ---
Subjective - Date & Time of Evaluation Date of Evaluation: 10/25/16 Time of Evaluation: 12:00 - Subjective Subjective: Remains intubated & ventilated Objective - Vital Signs/Intake and Output Vital Signs (last 24 hours): Temp Pulse Resp BP Pulse Ox 98.0 F 80 27 H 110/73 100 10/25/16 04:00 10/25/16 07:04 10/25/16 07:04 10/25/16 07:04 10/25/16 07:04 Intake and Output: 10/25/16 10/25/16 06:59 18:59 Intake Total 1291.1 155.5 Output Total 120 10 Balance 1171.1 145.5 - Medications Medications: Current Medications Acetaminophen (Tylenol 650mg/20.3ml Solution Ud) 650 mg PO Q6 PRN PRN Reason: Temperature Last Admin: 10/25/16 12:15 Dose: 650 mg Albuterol Sulfate (Albuterol 0.042% Inhal Nikky (1.25mg/3ml) Ud) 1.25 mg INH RQ6 [facility] Last Admin: 10/25/16 07:36 Dose: 1.25 mg Famotidine (Pepcid) 20 mg IVP DAILY [facility] Last Admin: 10/25/16 10:02 Dose: 20 mg Ceftriaxone Sodium (Rocephin Iv 1 Gm Duplex) 50 mls @ 100 mls/hr IVPB Q12H [facility] Last Admin: 10/25/16 01:51 Dose: 100 mls/hr Dexmedetomidine HCl 200 mcg/ (Sodium Chloride) 50 mls @ 4.96 mls/hr IV TITR PRN ; Protocol; 0.2 MCG/KG/HR PRN Reason: Agitation Last Admin: 10/25/16 12:19 Dose: 1.7 mcg/kg/hr, 42.16 mls/hr Midazolam HCl 100 mg/ Dextrose 100 mls @ 2.04 mls/hr IV .Q24H [facility]; 0.02 MG/KG/ HR PRN Reason: Protocol Last Admin: 10/25/16 09:07 Dose: 0.02 mg/kg/hr, 2.04 mls/hr Folic Acid 1 mg/ Sodium (Chloride) 100.2 mls @ 60 mls/hr IV DAILY [facility] Lactic Acid (Lac-Hydrin 12% Lotion (225 G)) 0 gm EXT BID [facility] Last Admin: 10/25/16 10:02 Dose: 1 applic Midazolam HCl (Versed Inj) 2 mg IVP Q4H PRN PRN Reason: Agitation Last Admin: 10/25/16 08:45 Dose: 2 mg Thiamine HCl (Vitamin B1 Inj) 100 mg IV DAILY [facility] - Labs Labs: 10/25/16 06:07 10/25/16 06:06 PT 18.5 SECONDS (9.7-12.2) H 10/21/16 11:04 INR 1.6 10/21/16 11:04 APTT 37 SECONDS (21-34) H 10/21/16 11:04 - Respiratory Exam Additional comments: Lungs clear anteriorly. No wheezes - GI/Abdominal Exam GI & Abdominal Exam: Distended - Extremities Exam Additional comments: No edema Assessment and Plan - Assessment and Plan (Free Text) Assessment: RUPALI requiring dialysis support Dialysis was tolerated well yesterday Sepsis Respiratory failure, Pneumonia, b/l pleural effusions Alcoholism Plan: Remains aneuric Will continue dialysis support
--- NOTE | 2016-10-25 15:08 | CP.PCM.PN ---
Subjective - Date & Time of Evaluation Date of Evaluation: 10/25/16 Time of Evaluation: 13:00 - Subjective Subjective: Patient was seen and examined at bedside in ICU. Patient is intubated and sedated Objective - Vital Signs/Intake and Output Vital Signs (last 24 hours): Temp Pulse Resp BP Pulse Ox 98.0 F 88 29 H 115/77 96 10/25/16 04:00 10/25/16 14:04 10/25/16 14:04 10/25/16 14:04 10/25/16 14:04 Intake and Output: 10/25/16 10/25/16 06:59 18:59 Intake Total 1291.1 205.5 Output Total 120 10 Balance 1171.1 195.5 - Medications Medications: Current Medications Acetaminophen (Tylenol 650mg/20.3ml Solution Ud) 650 mg PO Q6 PRN PRN Reason: Temperature Last Admin: 10/25/16 12:15 Dose: 650 mg Albuterol Sulfate (Albuterol 0.042% Inhal Nikky (1.25mg/3ml) Ud) 1.25 mg INH RQ6 MIRA Last Admin: 10/25/16 13:00 Dose: 1.25 mg Famotidine (Pepcid) 20 mg IVP DAILY M[facility]A Last Admin: 10/25/16 10:02 Dose: 20 mg Ceftriaxone Sodium (Rocephin Iv 1 Gm Duplex) 50 mls @ 100 mls/hr IVPB Q12H MIRA Last Admin: 10/25/16 14:03 Dose: 100 mls/hr Dexmedetomidine HCl 200 mcg/ (Sodium Chloride) 50 mls @ 4.96 mls/hr IV TITR PRN ; Protocol; 0.2 MCG/KG/HR PRN Reason: Agitation Last Admin: 10/25/16 14:03 Dose: 1.7 mcg/kg/hr, 42.16 mls/hr Midazolam HCl 100 mg/ Dextrose 100 mls @ 2.04 mls/hr IV .Q24H MIRA; 0.02 MG/KG/ HR PRN Reason: Protocol Last Admin: 10/25/16 09:07 Dose: 0.02 mg/kg/hr, 2.04 mls/hr Folic Acid 1 mg/ Sodium (Chloride) 100.2 mls @ 60 mls/hr IV DAILY MIRA Lactic Acid (Lac-Hydrin 12% Lotion (225 G)) 0 gm EXT BID MIRA Last Admin: 10/25/16 10:02 Dose: 1 applic Midazolam HCl (Versed Inj) 2 mg IVP Q4H PRN PRN Reason: Agitation Last Admin: 10/25/16 08:45 Dose: 2 mg Thiamine HCl (Vitamin B1 Inj) 100 mg IV DAILY [facility] - Labs Labs: 10/25/16 06:07 10/25/16 06:06 PT 18.5 SECONDS (9.7-12.2) H 10/21/16 11:04 INR 1.6 10/21/16 11:04 APTT 37 SECONDS (21-34) H 10/21/16 11:04 - Head Exam Head Exam: ATRAUMATIC, NORMOCEPHALIC - Eye Exam Eye Exam: absent: Scleral icterus - ENT Exam ENT Exam: Mucous Membranes Moist - Neck Exam Neck Exam: Normal Inspection - Respiratory Exam Additional comments: Bilateral transmitted breath sounds. Patient is intubated on ventilator support. - Cardiovascular Exam Cardiovascular Exam: REGULAR RHYTHM, +S1, +S2 - GI/Abdominal Exam GI & Abdominal Exam: Soft. absent: Tenderness - Extremities Exam Extremities Exam: absent: Pedal Edema - Neurological Exam Additional comments: Patient is intubated and sedated and does not respond to any commands - Skin Skin Exam: Intact Assessment and Plan (1) Alcohol withdrawal Assessment & Plan: Patient went into DTs. Management in ICU. Patient is currently intubated and sedated. Status: Acute (2) Hypoxemia Assessment & Plan: Patient is intubated and on ventilator support. Not a candidate for weaning at this time. Status: Acute (3) Pneumonia Assessment & Plan: X-ray chest report reviewed. Progression of infiltrates throughout the right upper and lower lobe treated infiltrate changes are also seen in the left middle to left lower lung cameron. Bilateral effusions. Patient has strep bacteremia. Continue antibiotics. ID is on board. Status: Acute (4) Respiratory distress Assessment & Plan: Patient is intubated currently. Status: Acute (5) Seizure disorder Assessment & Plan: Secondary to alcohol withdrawal. Patient is currently intubated and sedated. No seizures reported. Status: Acute (6) Sepsis Assessment & Plan: Secondary to strep bacteremia. Continue antibiotics. ID is on board. Status: Acute (7) Thrombocythemia Assessment & Plan: Secondary to alcohol abuse. Status: Chronic (8) Psoriasis Status: Acute (9) Renal failure Assessment & Plan: Patient started on hemodialysis. Renal is on board. Status: Acute - Assessment and Plan (Free Text) Plan: Discussed with ICU staff. Consultants notes reviewed. Management as per ICU team. Prognosis is guarded.
--- NOTE | 2016-10-25 15:57 | CP.PCM.PN ---
Subjective - Date & Time of Evaluation Date of Evaluation: 10/25/16 Time of Evaluation: 09:00 - Subjective Subjective: 45 yo male with hx of ETOH abuse admitted with septic shock resp failure and pneumonia with strep in Blood IV antibiotics to cont supportive care consider TAY when/ if stable Objective - Vital Signs/Intake and Output Vital Signs (last 24 hours): Temp Pulse Resp BP Pulse Ox 98.0 F 88 29 H 115/77 96 10/25/16 04:00 10/25/16 14:04 10/25/16 14:04 10/25/16 14:04 10/25/16 14:04 Intake and Output: 10/25/16 10/25/16 06:59 18:59 Intake Total 1291.1 205.5 Output Total 120 10 Balance 1171.1 195.5 - Medications Medications: Current Medications Acetaminophen (Tylenol 650mg/20.3ml Solution Ud) 650 mg PO Q6 PRN PRN Reason: Temperature Last Admin: 10/25/16 12:15 Dose: 650 mg Albuterol Sulfate (Albuterol 0.042% Inhal Nikky (1.25mg/3ml) Ud) 1.25 mg INH RQ6 MIRA Last Admin: 10/25/16 13:00 Dose: 1.25 mg Famotidine (Pepcid) 20 mg IVP DAILY [facility] Last Admin: 10/25/16 10:02 Dose: 20 mg Ceftriaxone Sodium (Rocephin Iv 1 Gm Duplex) 50 mls @ 100 mls/hr IVPB Q12H [facility] Last Admin: 10/25/16 14:03 Dose: 100 mls/hr Midazolam HCl 100 mg/ Dextrose 100 mls @ 2.04 mls/hr IV .Q24H MIRA; 0.02 MG/KG/ HR PRN Reason: Protocol Last Admin: 10/25/16 09:07 Dose: 0.02 mg/kg/hr, 2.04 mls/hr Folic Acid 1 mg/ Sodium (Chloride) 100.2 mls @ 60 mls/hr IV DAILY [facility] Dexmedetomidine HCl 200 mcg/ (Sodium Chloride) 50 mls @ 5.1 mls/hr IV TITR PRN ; Protocol; 0.2 MCG/KG/HR PRN Reason: Agitation Lactic Acid (Lac-Hydrin 12% Lotion (225 G)) 0 gm EXT BID MIRA Last Admin: 10/25/16 10:02 Dose: 1 applic Midazolam HCl (Versed Inj) 2 mg IVP Q4H PRN PRN Reason: Agitation Last Admin: 10/25/16 08:45 Dose: 2 mg Thiamine HCl (Vitamin B1 Inj) 100 mg IV DAILY [facility] - Labs Labs: 10/25/16 06:07 10/25/16 06:06 PT 18.5 SECONDS (9.7-12.2) H 10/21/16 11:04 INR 1.6 10/21/16 11:04 APTT 37 SECONDS (21-34) H 10/21/16 11:04 - Constitutional Appears: Non-toxic, Chronically Ill - Head Exam Head Exam: NORMOCEPHALIC - Eye Exam Eye Exam: absent: Scleral icterus - ENT Exam ENT Exam: Normal External Ear Exam - Neck Exam Neck Exam: absent: Lymphadenopathy - Respiratory Exam Respiratory Exam: Decreased Breath Sounds, Rhonchi - Cardiovascular Exam Cardiovascular Exam: REGULAR RHYTHM - GI/Abdominal Exam GI & Abdominal Exam: Distended, Soft Assessment and Plan (1) Seizure disorder Status: Acute (2) Seizure disorder Status: Acute (3) Sepsis Status: Acute (4) Sepsis Status: Acute (5) Alcohol withdrawal Status: Acute (6) Hypoxemia Status: Acute (7) Pneumonia Status: Acute (8) Respiratory distress Status: Acute (9) Psoriasis Status: Acute
[2016-10-25] MEDS: Thiamine 100 mg/ml Inj IV SCH (17:20)
--- NOTE | 2016-10-25 18:08 | CP.CCUPN ---
CCU Subjective - Physician Review Events Since Last Encounter (Free Text): 10/25/16 18:03 Patient is still having episodes of fever today. Very agitated this morning. Patient is currently on Versed drip as well as Precedex drips. In spite of that patient is very agitated at times. Chest x-ray showing worsening right-sided lung infiltrate. Slight improvement in the left lung. Vital signs reviewed No neck vein distention noted Chest good air entry bilaterally, no wheezing or rales noted CVS regular heart sound, no murmur noted Abdomen soft, nontender. Extremities no pedal edema Patient sedated Labs reviewed Currently patient is on antibiotic. Closely monitor the patient. 45-year-old male with history of colic liver disease alcoholism WITHDRAWAL. Cardiac arrest and respiratory arrest. Intubated. Streptococcus pneumonia on antibiotic. Patient is still having severe respiratory distress with the hypoxia. Slow improvement will follow the patient CCU Objective - Vital Signs / Intake & Output Vital Signs (Last 4 hours): Vital Signs Pulse Resp BP Pulse Ox 10/25/16 14:04 88 29 H 115/77 96 Intake and Output (Last 8hrs): Intake & Output 10/25/16 10/25/16 10/25/16 06:59 14:59 22:59 Intake Total 824.6 205.5 Output Total 80 10 Balance 744.6 195.5 Intake: IV 250 150 Intake, IV Amount 334.6 25.5 Right jugular TLC distal 100 port Right jugular TLC medial 234.6 25.5 port Tube Feeding 240 30 Output: Urine 80 10 Urethral (Walters) 80 10 - Physical Exam Head: Positive for: Atraumatic, Normocephalic Respiratory/Chest: Positive for: Decreased Breath Sounds, Other (intubated ) Cardiovascular: Positive for: Normal S1, S2, Tachycardic Abdomen: Positive for: Distention, Normal Bowel Sounds Genitourinary Male: Positive for: Other (walters in place) Upper Extremity: Negative for: Edema Lower Extremity: Negative for: Edema Neurological: Negative for: GCS=15, Speech Normal (patient is intubated) Skin: Positive for: Other (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, bilateral upper extremities, and in gluteal fold.) Psychiatric: Positive for: Alert - Medications Active Medications: Active Medications Generic Name Dose Route Start Last Admin Trade Name Freq PRN Reason Stop Dose Admin Acetaminophen 650 mg 10/25/16 11:56 10/25/16 12:15 Tylenol 650mg/20.3ml Solution Ud PO 650 mg Q6 PRN Administration Temperature Albuterol Sulfate 1.25 mg 10/22/16 14:00 10/25/16 13:00 Albuterol 0.042% Inhal Nikky (1.25mg/3ml) Ud INH 1.25 mg RQ6 MIRA Administration Famotidine 20 mg 10/21/16 14:30 10/25/16 10:02 Pepcid IVP 20 mg DAILY M[facility]A Administration Ceftriaxone Sodium 50 mls @ 100 mls/hr 10/23/16 13:30 10/25/16 14:03 Rocephin Iv 1 Gm Duplex IVPB 100 mls/hr Q12H MIRA Administration Midazolam HCl 100 mg/ Dextrose 100 mls @ 2.04 mls/hr 10/25/16 09:00 10/25/16 09:07 IV 0.02 mg/kg/hr .Q24H MIRA 2.04 mls/hr Protocol Administration 0.02 MG/KG/HR Folic Acid 1 mg/ Sodium 100.2 mls @ 60 mls/hr 10/25/16 14:30 10/25/16 17:19 Chloride IV 60 mls/hr DAILY M[facility]A Administration Dexmedetomidine HCl 200 mcg/ 50 mls @ 5.1 mls/hr 10/25/16 15:47 10/25/16 17: 19 Sodium Chloride IV 1 mcg/kg/hr TITR PRN 25.5 mls/hr Agitation Administration Protocol 0.2 MCG/KG/HR Lactic Acid 0 gm 10/22/16 13:00 10/25/16 10:02 Lac-Hydrin 12% Lotion (225 G) EXT 1 applic BID MIRA Administration Midazolam HCl 2 mg 10/22/16 19:22 10/25/16 08:45 Versed Inj IVP 2 mg Q4H PRN Administration Agitation Thiamine HCl 100 mg 10/25/16 15:30 10/25/16 17:20 Vitamin B1 Inj IV 100 mg DAILY M[facility]A Administration - Patient Studies Lab Studies: Lab Studies 10/25/16 10/25/16 10/25/16 Range/Units 06:07 06:06 05:26 WBC 11.5 H (4.8-10.8) K/uL RBC 3.18 L (4.40-5.90) Mil/uL Hgb 10.2 L (12.0-18.0) g/dL Hct 31.0 L (35.0-51.0) % MCV 97.4 H (80.0-94.0) fL MCH 32.2 H (27.0-31.0) pg MCHC 33.0 (33.0-37.0) g/dL RDW 15.1 H (11.5-14.5) % Plt Count 48 L (130-400) K/uL MPV 10.4 (7.2-11.7) fL Neut % (Auto) 86.7 H (50.0-75.0) % Lymph % (Auto) 6.0 L (20.0-40.0) % [place] % (Auto) 6.8 (0.0-10.0) % Eos % (Auto) 0.2 (0.0-4.0) % Baso % (Auto) 0.3 (0.0-2.0) % Neut # 10.0 H (1.8-7.0) K/uL Lymph # 0.7 L (1.0-4.3) K/uL [place] # 0.8 (0.0-0.8) K/uL Eos # 0.0 (0.0-0.7) K/uL Baso # 0.0 (0.0-0.2) K/uL Neutrophils % (Manual) 80 H (50-75) % Band Neutrophils % 5 H (0-2) % Lymphocytes % (Manual) 8 L (20-40) % Monocytes % (Manual) 7 (0-10) % Nucleated RBC % 2 H (0-0) % Platelet Estimate Markedly decreased L (NORMAL) Polychromasia Slight Hypochromasia (manual) Slight Poikilocytosis (manual Slight Anisocytosis (manual) Slight Macrocytosis (manual) Slight Puncture Site Rr pCO2 41 (35-45) mm/Hg pO2 67 L (80-100) mm/Hg HCO3 24.2 (21-28) mmol/L ABG pH 7.38 (7.35-7.45) ABG Total CO2 25.6 (22-28) mmol/L ABG O2 Saturation 95.7 (95-98) % ABG Base Excess -0.8 (-2.0-3.0) mmol/L ABG Hemoglobin 10.8 L (11.7-17.4) g/dL ABG Carboxyhemoglobin 1.9 H (0.5-1.5) % POC ABG HHb (Measured) 4.2 (0.0-5.0) % ABG Methemoglobin 1.0 (0.0-3.0) % Nicolas Test Pos A-a O2 Difference 452.0 mm/Hg Respiratory Index 6.7 Hgb O2 Saturation 92.9 L (95.0-98.0) % Vent Mode Prvc Mechanical Rate 24 FiO2 80.0 % Tidal Volume 500 PEEP 10 Sodium 142 (132-148) mmol/L Potassium 4.1 (3.6-5.2) mmol/L Chloride 100 (98-107) mmol/L Carbon Dioxide 24 (22-30) mmol/L Anion Gap 23 H (10-20) BUN 64 H (9-20) mg/dL Creatinine 4.7 H (0.8-1.5) MG/DL Est GFR ( Amer) 16 Est GFR (Non-Af Amer) 13 Random Glucose 92 (75-110) mg/dL Calcium 7.2 L (8.6-10.4) mg/dl Phosphorus 5.5 H (2.5-4.5) mg/dL Magnesium 2.3 (1.6-2.3) mg/dL Total Bilirubin 3.8 H (0.2-1.3) mg/dL AST 171 H D (17-59) U/L ALT 76 H (21-72) U/L Alkaline Phosphatase 112 (38-126) U/L Total Protein 6.6 (6.3-8.3) g/dL Albumin 2.7 L (3.5-5.0) g/dL Globulin 3.9 (2.2-3.9) gm/dL Albumin/Globulin Ratio 0.7 L (1.0-2.1) Laboratory Results - last 24 hr 10/25/16 10/25/16 10/25/16 05:26 06:06 06:07 WBC 11.5 H RBC 3.18 L Hgb 10.2 L Hct 31.0 L MCV 97.4 H MCH 32.2 H MCHC 33.0 RDW 15.1 H Plt Count 48 L MPV 10.4 Neut % (Auto) 86.7 H Lymph % (Auto) 6.0 L [place] % (Auto) 6.8 Eos % (Auto) 0.2 Baso % (Auto) 0.3 Neut # 10.0 H Lymph # 0.7 L [place] # 0.8 Eos # 0.0 Baso # 0.0 Neutrophils % (Manual) 80 H Band Neutrophils % 5 H Lymphocytes % (Manual) 8 L Monocytes % (Manual) 7 Nucleated RBC % 2 H Platelet Estimate Markedly decreased L Polychromasia Slight Hypochromasia (manual) Slight Poikilocytosis (manual Slight Anisocytosis (manual) Slight Macrocytosis (manual) Slight Puncture Site Rr pCO2 41 pO2 67 L HCO3 24.2 ABG pH 7.38 ABG Total CO2 25.6 ABG O2 Saturation 95.7 ABG Base Excess -0.8 ABG Hemoglobin 10.8 L ABG Carboxyhemoglobin 1.9 H POC ABG HHb (Measured) 4.2 ABG Methemoglobin 1.0 Nicolas Test Pos A-a O2 Difference 452.0 Respiratory Index 6.7 Hgb O2 Saturation 92.9 L Vent Mode Prvc Mechanical Rate 24 FiO2 80.0 Tidal Volume 500 PEEP 10 Sodium 142 Potassium 4.1 Chloride 100 Carbon Dioxide 24 Anion Gap 23 H BUN 64 H Creatinine 4.7 H Est GFR ( Amer) 16 Est GFR (Non-Af Amer) 13 Random Glucose 92 Calcium 7.2 L Phosphorus 5.5 H Magnesium 2.3 Total Bilirubin 3.8 H AST 171 H D ALT 76 H Alkaline Phosphatase 112 Total Protein 6.6 Albumin 2.7 L Globulin 3.9 Albumin/Globulin Ratio 0.7 L
[2016-10-26] MEDS: Albuterol 0.042% Inhal Sol (1.25 mg/3 mL) UD INH SCH ×4 (01:23→19:19)
[2016-10-26] MEDS: cefTRIAXone IV 1 gm in Dextros 50 ML IVPB SCH ×2 (01:34→14:12)
[2016-10-26] MEDS: Dexmedetomidine Hydrochloride 400 MCG in Sodium Chloride 0.9% 96 ML IV PRN ×5 (01:35→21:24)
[2016-10-26 05:48] LABS: ABG ALLEN TEST POS; ABG MECHANICAL RATE 24; ARTERIAL BLOOD GAS MODE PRVC; ARTERIAL BLOOD HGB O2 SAT 85.2 % (95.0-98.0); ATERIAL BLOOD GAS PEEP 10; DRAW SITE RR; HHB 11.7 % (0.0-5.0); METHEMOGLOBIN 1.2 % (0.0-3.0)
[2016-10-26 06:25] LABS: BASO % 0.1 % (0.0-2.0); EOS # 0.2 K/uL (0.0-0.7); EOS % 1.3 % (0.0-4.0); HEMATOCRIT 31.4 % (35.0-51.0); LYMPH # 1.1 K/uL (1.0-4.3); LYMPH % 7.3 % (20.0-40.0); MEAN CELL VOLUME 97.8 fL (80.0-94.0); MEAN CORPUSCULAR HGB CONC 32.7 g/dL (33.0-37.0); MEAN PLATELET VOLUME 11.1 fL (7.2-11.7); MONO # 0.7 K/uL (0.0-0.8); MONO % 4.6 % (0.0-10.0); NRBC % 0.1 % (0.0-2.0); PLATELET COUNT 73 K/uL (130-400); RED CELL DISTRIBUTION WIDTH 15.2 % (11.5-14.5); WHITE BLOOD COUNT 15.1 K/uL (4.8-10.8)
[2016-10-26 06:58] LABS: ALB/GLOB RATIO 0.7 (1.0-2.1); BILIRUBIN,TOTAL 3.8 mg/dL (0.2-1.3); CALCIUM 7.2 mg/dl (8.6-10.4); MAGNESIUM 2.8 mg/dL (1.6-2.3); PHOSPHOROUS 6.2 mg/dL (2.5-4.5); POTASSIUM 3.5 mmol/L (3.6-5.2); TOTAL PROTEIN 6.1 g/dL (6.3-8.3)
[2016-10-26 08:22] LABS: NEUTROPHIL 86 % (50-75); TOTAL CELLS COUNTED 100
[2016-10-26] MEDS ORDERED: Potassium Chloride 10 mEq ER Tab PO ONE (08:30)
--- NOTE | 2016-10-26 08:36 | CP.PCM.PN ---
Subjective - Date & Time of Evaluation Date of Evaluation: 10/26/16 Time of Evaluation: 07:50 - Subjective Subjective: Hospitalist Progress Note (Patient was seen and examined at 7:50 AM 10/26/16 ICU Bed 14A) This is the first time that I am seeing this patient. 45 year old male who presented to the ER here at [facility] on 10/21/16 itoxicated with complaints of cough and abdominal pain. He was found to be hypotensive, hopoxic, with RUL/RML Pneumonia. He eventually required intubation and ventilator support. He was also found to be in Acute Renal Failure and started receiving HD through [facility] on Wednesday10/23/16. His prognosis remains guarded. Patient is under sedation and intubated and therefore could not answer ROS questions. I spoke with Nurse Ricardo and patient has produced 340 ml of urine since yesterday and last bowel movement was on Wednesday10/24/16. HEENT: NCA, Pupils are pinpoint/round/reactive to light, NO lymphadenopathy, NO JVD, NO thyromegaly, Nasal turbinates are nonerythematous/nonedematous/moist, Oral mucosa is dry. Cardio: NS1 and NS2, NO M/R/G (please note that this exam is limited by interference of diffuse course breath sounds) Resp: Course breath sounds diffusely GI: BSx4 are reduced in all 4 quadrants, Distention, Liver and Spleen could not be adequately palpated secondary to distention, Soft Ext: Pulses are strong and equal, Capillary Refill is 2 seconds, NO cyanosis, NO edema, Patches of Psoriasis on the bilateral elbows/bilateral anterior lower legs Neuro: exam not possible Skin: Bilateral Groin fungal rash Assessment and Plan (1) Alcohol withdrawal Assessment & Plan: Patient with history of DTs since his admission. Management in ICU. Patient is currently intubated and sedated. Status: Acute (2) Hypoxemia/Respiratory Distress Assessment & Plan: Patient is intubated and on ventilator support. Not a candidate for weaning at this time. Dexmedetomidine 50 ml/hr Midazolam 100 ml/hr Status: Acute (3)Sepsis Secondary to Pneumonia and Bacteremia Assessment & Plan: X-ray chest report reviewed 10/24/16 and 10/26/16. Progression of infiltrates throughout the right upper and lower lobe treated infiltrate changes are also seen in the left middle to left lower lung cameron. Bilateral effusions. CT Angio Chest 10/23/16 showed NO PE, extensive pulmonary consolidation bilateral lower lobes and RUL, patchy infiltrates NING and RML, bilateral pleural effusions, hepatic cirrhosis, and ascites. Patient has Strep pneumoniae bacteremia as per Blood Culture 10/21/16. Ceftriaxone 1 gm IV 1x/day Vancomycin 1 gm IV x 1 dose given by ICU team 10/24/16 and another dose will be ordered after HD today ID Dr. Aleyda Bowers Status: Acute (4) Seizure disorder Assessment & Plan: Secondary to alcohol withdrawal. Patient is currently intubated and sedated. No seizures reported. Neurology Dr. Pineda Status: Acute (5) Thrombocytopenia Assessment & Plan: Likely Secondary to alcohol abuse. Pepcid was discontinued 10/26/16 as this can worsen thrombocytopenia and Protonix 40 mg IV 1x/day was ordered 10/26/16 Platelets today 10/26/16 are at 73 Status: Chronic (6) Psoriasis Status: Acute (7) Renal failure Assessment & Plan: Renal U/S 10/24/16 showed nonobstructing calculus upper/midpole Right Kidney and Abdominal Ascites Hepatitis Panel is negative Patient started on hemodialysis through [facility] I spoke with [facility] Dr. Merida this morning 10/26/[address] orders for HD today 10/26/16 as renal functioning is worsening. Status: Acute (8). Anemia Likely Secondary to Chronic Alcohol Use and Renal Failure Stool Occult Blood 10/21/16 is negative HgB/Hct today 10/26/16 is stable at 10.2/31.4 Continue to monitor (9). Hypokalemia I dose of KCl 10 mEQ given earlier today 10/26/16 (10). Prophylactic Measures Bilateral SCDs Protonix 40 mg IV 1x/day Jevity at 30 mL per hour via NGT NO anticoagulation considering the Anemia and Thrombocytopenia Objective - Vital Signs/Intake and Output Vital Signs (last 24 hours): Temp Pulse Resp BP Pulse Ox 99.5 F 70 20 96/59 L 94 L 10/26/16 04:00 10/26/16 06:00 10/26/16 06:00 10/26/16 06:00 10/26/16 06:00 Intake and Output: 10/26/16 10/26/16 06:59 18:59 Intake Total 940.0 Output Total 375 Balance 565.0 - Medications Medications: Current Medications Acetaminophen (Tylenol 650mg/20.3ml Solution Ud) 650 mg PO Q6 PRN PRN Reason: Temperature Last Admin: 10/25/16 12:15 Dose: 650 mg Albuterol Sulfate (Albuterol 0.042% Inhal Nikky (1.25mg/3ml) Ud) 1.25 mg INH RQ6 MIRA Last Admin: 10/26/16 07:15 Dose: 1.25 mg Ceftriaxone Sodium (Rocephin Iv 1 Gm Duplex) 50 mls @ 100 mls/hr IVPB Q12H M[facility]A Last Admin: 10/26/16 01:34 Dose: 100 mls/hr Midazolam HCl 100 mg/ Dextrose 100 mls @ 2.04 mls/hr IV .Q24H MIRA; 0.02 MG/KG/ HR PRN Reason: Protocol Last Admin: 10/25/16 09:07 Dose: 0.02 mg/kg/hr, 2.04 mls/hr Folic Acid 1 mg/ Sodium (Chloride) 100.2 mls @ 60 mls/hr IV DAILY [facility]A Last Admin: 10/25/16 17:19 Dose: 60 mls/hr Dexmedetomidine HCl 400 mcg/ (Sodium Chloride) 100 mls @ 5.1 mls/hr IV TITR PRN ; Protocol; 0.2 MCG/KG/HR PRN Reason: Agitation Last Admin: 10/26/16 05:45 Dose: 1 mcg/kg/hr, 25.5 mls/hr Lactic Acid (Lac-Hydrin 12% Lotion (225 G)) 0 gm EXT BID MIRA Last Admin: 10/25/16 18:29 Dose: 1 applic Midazolam HCl (Versed Inj) 2 mg IVP Q4H PRN PRN Reason: Agitation Last Admin: 10/25/16 08:45 Dose: 2 mg Pantoprazole Sodium (Protonix Inj) [address] [facility] Potassium Chloride (Klor-Con 10) 10 meq PO ONCE ONE Stop: 10/26/16 08:31 Thiamine HCl (Vitamin B1 Inj) 100 mg IV DAILY MIRA Last Admin: 10/25/16 17:20 Dose: 100 mg - Labs Labs: 10/26/16 06:20 10/26/16 06:20 PT 18.5 SECONDS (9.7-12.2) H 10/21/16 11:04 INR 1.6 10/21/16 11:04 APTT 37 SECONDS (21-34) H 10/21/16 11:04
[2016-10-26] MEDS ORDERED: Potassium Chloride 20 mEq/15 ml LIQ UD PO ONE (10:00)
[2016-10-26] MEDS: Ammonium Lactate 12% Lotion (225 g) EXT SCH ×2 (10:08→17:37)
--- NOTE | 2016-10-26 10:41 | CP.CCUPN ---
CCU Subjective - Physician Review Subjective (Free Text): Patient was seen and examined at bedside in the AM. Patient is intubated and sedated. Per nurse the patient has not had a fever since Wednesday. 10/26/16 10:48 CCU Objective - Vital Signs / Intake & Output Intake and Output (Last 8hrs): Intake & Output 10/25/16 10/26/16 10/26/16 22:59 06:59 14:59 Intake Total 573.6 660.0 100 Output Total 40 375 Balance 533.6 285.0 100 Intake: IV 100 150 100 Intake, IV Amount 233.6 270.0 Right Proximal Port 16 16 Internal Jugular Right jugular TLC distal 50 port Right jugular TLC medial 217.6 204.0 port Tube Feeding 240 240 Output: Urine 40 375 Urethral (Walters) 40 375 Stool 0 - Physical Exam Head: Positive for: Atraumatic, Normocephalic Respiratory/Chest: Positive for: Decreased Breath Sounds, Other (intubated ) Cardiovascular: Positive for: Normal S1, S2, Tachycardic Abdomen: Positive for: Distention, Normal Bowel Sounds Genitourinary Male: Positive for: Other (walters in place) Upper Extremity: Negative for: Edema Lower Extremity: Negative for: Edema Neurological: Negative for: GCS=15, Speech Normal (patient is intubated) Skin: Positive for: Other (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, bilateral upper extremities, and in gluteal fold.) Psychiatric: Negative for: Alert (patient is sedated ) - Medications Active Medications: Active Medications Generic Name Dose Route Start Last Admin Trade Name Freq PRN Reason Stop Dose Admin Acetaminophen 650 mg 10/25/16 11:56 10/25/16 12:15 Tylenol 650mg/20.3ml Solution Ud PO 650 mg Q6 PRN Administration Temperature Albuterol Sulfate 1.25 mg 10/22/16 14:00 10/26/16 07:15 Albuterol 0.042% Inhal Nikky (1.25mg/3ml) Ud INH 1.25 mg RQ6 MIRA Administration Heparin Sodium (Porcine) 5,000 units 10/26/16 14:00 Heparin SC Q8 MIRA Ceftriaxone Sodium 50 mls @ 100 mls/hr 10/23/16 13:30 10/26/16 01:34 Rocephin Iv 1 Gm Duplex IVPB 100 mls/hr Q12H MIRA Administration Midazolam HCl 100 mg/ Dextrose 100 mls @ 2.04 mls/hr 10/25/16 09:00 10/25/16 09:07 IV 0.02 mg/kg/hr .Q24H MIRA 2.04 mls/hr Protocol Administration 0.02 MG/KG/HR Folic Acid 1 mg/ Sodium 100.2 mls @ 60 mls/hr 10/25/16 14:30 10/25/16 17:19 Chloride IV 60 mls/hr DAILY MIRA Administration Dexmedetomidine HCl 400 mcg/ 100 mls @ 5.1 mls/hr 10/26/16 01:30 10/26/16 10: 00 Sodium Chloride IV 1.4 mcg/kg/hr TITR PRN 35.7 mls/hr Agitation Administration Protocol 0.2 MCG/KG/HR Vancomycin/Sodium Chloride 1 gm in 200 mls @ 166.7 mls/hr 10/26/16 14:00 Vancocin IVPB 10/26/16 15:11 ONCE ONE Lactic Acid 0 gm 10/22/16 13:00 10/26/16 10:08 Lac-Hydrin 12% Lotion (225 G) EXT 1 applic BID MIRA Administration Midazolam HCl 2 mg 10/22/16 19:22 10/25/16 08:45 Versed Inj IVP 2 mg Q4H PRN Administration Agitation Nystatin 1 applic 10/26/16 10:00 Nystop Topical Powder TOP 11/09/16 10:00 BID MIRA Pantoprazole Sodium 40 mg 10/26/16 10:00 Protonix Inj IVP DAILY MIRA Thiamine HCl 100 mg 10/25/16 15:30 10/25/16 17:20 Vitamin B1 Inj IV 100 mg DAILY MIRA Administration - Patient Studies Lab Studies: Lab Studies 10/26/16 10/26/16 10/26/16 Range/Units 06:20 06:20 05:34 WBC 15.1 H (4.8-10.8) K/uL RBC 3.21 L (4.40-5.90) Mil/uL Hgb 10.2 L (12.0-18.0) g/dL Hct 31.4 L (35.0-51.0) % MCV 97.8 H (80.0-94.0) fL MCH 32.0 H (27.0-31.0) pg MCHC 32.7 L (33.0-37.0) g/dL RDW 15.2 H (11.5-14.5) % Plt Count 73 L D (130-400) K/uL MPV 11.1 (7.2-11.7) fL Neut % (Auto) 86.7 H (50.0-75.0) % Lymph % (Auto) 7.3 L (20.0-40.0) % [place] % (Auto) 4.6 (0.0-10.0) % Eos % (Auto) 1.3 (0.0-4.0) % Baso % (Auto) 0.1 (0.0-2.0) % Neut # 13.1 H (1.8-7.0) K/uL Lymph # 1.1 (1.0-4.3) K/uL [place] # 0.7 (0.0-0.8) K/uL Eos # 0.2 (0.0-0.7) K/uL Baso # 0.0 (0.0-0.2) K/uL Neutrophils % (Manual) 86 H (50-75) % Band Neutrophils % 2 (0-2) % Lymphocytes % (Manual) 10 L (20-40) % Monocytes % (Manual) 2 (0-10) % Platelet Estimate Decreased L (NORMAL) Hypochromasia (manual) Slight Anisocytosis (manual) Slight Puncture Site Rr pCO2 43 (35-45) mm/Hg pO2 51 L (80-100) mm/Hg HCO3 22.7 (21-28) mmol/L ABG pH 7.34 L (7.35-7.45) ABG Total CO2 24.5 (22-28) mmol/L ABG O2 Saturation 87.9 L (95-98) % ABG Base Excess -2.5 L (-2.0-3.0) mmol/L ABG Hemoglobin 10.9 L (11.7-17.4) g/dL ABG Carboxyhemoglobin 2.0 H (0.5-1.5) % POC ABG HHb (Measured) 11.7 H (0.0-5.0) % ABG Methemoglobin 1.2 (0.0-3.0) % Nicolas Test Pos A-a O2 Difference 394.0 mm/Hg Respiratory Index 7.7 Hgb O2 Saturation 85.2 L (95.0-98.0) % Vent Mode Prvc Mechanical Rate 24 FiO2 70.0 % Tidal Volume 500 PEEP 10 Sodium 144 (132-148) mmol/L Potassium 3.5 L (3.6-5.2) mmol/L Chloride 102 (98-107) mmol/L Carbon Dioxide 24 (22-30) mmol/L Anion Gap 22 H (10-20) BUN 93 H (9-20) mg/dL Creatinine 7.1 H D (0.8-1.5) MG/DL Est GFR ( Amer) 10 Est GFR (Non-Af Amer) 8 Random Glucose 169 H (75-110) mg/dL Calcium 7.2 L (8.6-10.4) mg/dl Phosphorus 6.2 H (2.5-4.5) mg/dL Magnesium 2.8 H (1.6-2.3) mg/dL Total Bilirubin 3.8 H (0.2-1.3) mg/dL AST 83 H D (17-59) U/L ALT 61 (21-72) U/L Alkaline Phosphatase 106 (38-126) U/L Total Protein 6.1 L (6.3-8.3) g/dL Albumin 2.5 L (3.5-5.0) g/dL Globulin 3.7 (2.2-3.9) gm/dL Albumin/Globulin Ratio 0.7 L (1.0-2.1) Laboratory Results - last 24 hr 10/26/16 10/26/16 10/26/16 05:34 06:20 06:20 WBC 15.1 H RBC 3.21 L Hgb 10.2 L Hct 31.4 L MCV 97.8 H MCH 32.0 H MCHC 32.7 L RDW 15.2 H Plt Count 73 L D MPV 11.1 Neut % (Auto) 86.7 H Lymph % (Auto) 7.3 L [place] % (Auto) 4.6 Eos % (Auto) 1.3 Baso % (Auto) 0.1 Neut # 13.1 H Lymph # 1.1 [place] # 0.7 Eos # 0.2 Baso # 0.0 Neutrophils % (Manual) 86 H Band Neutrophils % 2 Lymphocytes % (Manual) 10 L Monocytes % (Manual) 2 Platelet Estimate Decreased L Hypochromasia (manual) Slight Anisocytosis (manual) Slight Puncture Site Rr pCO2 43 pO2 51 L HCO3 22.7 ABG pH 7.34 L ABG Total CO2 24.5 ABG O2 Saturation 87.9 L ABG Base Excess -2.5 L ABG Hemoglobin 10.9 L ABG Carboxyhemoglobin 2.0 H POC ABG HHb (Measured) 11.7 H ABG Methemoglobin 1.2 Nicolas Test Pos A-a O2 Difference 394.0 Respiratory Index 7.7 Hgb O2 Saturation 85.2 L Vent Mode Prvc Mechanical Rate 24 FiO2 70.0 Tidal Volume 500 PEEP 10 Sodium 144 Potassium 3.5 L Chloride 102 Carbon Dioxide 24 Anion Gap 22 H BUN 93 H Creatinine 7.1 H D Est GFR ( Amer) 10 Est GFR (Non-Af Amer) 8 Random Glucose 169 H Calcium 7.2 L Phosphorus 6.2 H Magnesium 2.8 H Total Bilirubin 3.8 H AST 83 H D ALT 61 Alkaline Phosphatase 106 Total Protein 6.1 L Albumin 2.5 L Globulin 3.7 Albumin/Globulin Ratio 0.7 L Review of Systems - Review of Systems Systems not reviewed;Unavailable: Intubated Assessment/Plan (1) Alcohol withdrawal Assessment and plan: 45 year old male who presented to the ED with complaint of worsening cough, abdominal pain for seven days. Neuro: - Chronic alcohol abuse - Sedated - Propofol - 0.5 Klonopin 0.5mg - 2mg Midazolam - Intubated - CT of head (10/22): no acute intracranial hemorrhage identified. - Neurology Consult: Dr. Pineda --> help appreciated Pulm: - Intubated - Hypoxic on vent - Right Central Line Placed - 10/22 - CT Angio (10/23): Limited examination for PE. - Chest X-ray worsening right sided lung infiltrate CV: - Monitor Heme: - Thrombocytopenia - Plateletphresis: 1 unit (10/23) Renal: - Walters placed 10/21 - Monitor - Dialysis started 10/23 - Right Femoral Hemodialysis Access placed 10/23 - Nephrology Consult: Dr. Merida --> help appreciated Endo: - Monitor - No acute issues GI: - Tube Feeding - Monitor ID: - Sepsis due to Pneumonia - blood culture: Strep Pneumoniae - Zosyn stopped 10/22 - Ceftriaxone started 10/22 - Vanco started 10/22 - ID Consult: Dr. Bowers --> help appreciated - repeat cultures DVT proph - SCDs; Heparin started 10/26 GI proph - Pepcid 20mg PO Daily Code status - full code Case discussed with Dr. Patti Wilde PGY-1 Current Visit: Yes Status: Acute Priority: High (2) Sepsis Current Visit: Yes Status: Acute Priority: High (3) Thrombocythemia Current Visit: Yes Status: Chronic (4) Transaminitis Current Visit: Yes Status: Acute
--- NOTE | 2016-10-26 11:06 | CP.PCM.PN ---
Subjective - Date & Time of Evaluation Date of Evaluation: 10/26/16 Time of Evaluation: 10:20 - Subjective Subjective: Currently on dialysis Intubated & sedated Objective - Vital Signs/Intake and Output Vital Signs (last 24 hours): Temp Pulse Resp BP Pulse Ox 99.5 F 70 20 96/59 L 94 L 10/26/16 04:00 10/26/16 06:00 10/26/16 06:00 10/26/16 06:00 10/26/16 06:00 Intake and Output: 10/26/16 10/26/16 06:59 18:59 Intake Total 940.0 100 Output Total 375 Balance 565.0 100 - Medications Medications: Current Medications Acetaminophen (Tylenol 650mg/20.3ml Solution Ud) 650 mg PO Q6 PRN PRN Reason: Temperature Last Admin: 10/25/16 12:15 Dose: 650 mg Albuterol Sulfate (Albuterol 0.042% Inhal Nikky (1.25mg/3ml) Ud) 1.25 mg INH RQ6 MIRA Last Admin: 10/26/16 07:15 Dose: 1.25 mg Heparin Sodium (Porcine) (Heparin) 5,000 units SC Q8 MIRA Ceftriaxone Sodium (Rocephin Iv 1 Gm Duplex) 50 mls @ 100 mls/hr IVPB Q12H MIRA Last Admin: 10/26/16 01:34 Dose: 100 mls/hr Midazolam HCl 100 mg/ Dextrose 100 mls @ 2.04 mls/hr IV .Q24H MIRA; 0.02 MG/KG/ HR PRN Reason: Protocol Last Admin: 10/25/16 09:07 Dose: 0.02 mg/kg/hr, 2.04 mls/hr Folic Acid 1 mg/ Sodium (Chloride) 100.2 mls @ 60 mls/hr IV DAILY MIRA Last Admin: 10/25/16 17:19 Dose: 60 mls/hr Dexmedetomidine HCl 400 mcg/ (Sodium Chloride) 100 mls @ 5.1 mls/hr IV TITR PRN ; Protocol; 0.2 MCG/KG/HR PRN Reason: Agitation Last Admin: 10/26/16 10:00 Dose: 1.4 mcg/kg/hr, 35.7 mls/hr Vancomycin/Sodium Chloride (Vancocin) 1 gm in 200 mls @ 166.7 mls/hr IVPB ONCE ONE Stop: 10/26/16 15:11 Lactic Acid (Lac-Hydrin 12% Lotion (225 G)) 0 gm EXT BID MIRA Last Admin: 10/26/16 10:08 Dose: 1 applic Midazolam HCl (Versed Inj) 2 mg IVP Q4H PRN PRN Reason: Agitation Last Admin: 10/25/16 08:45 Dose: 2 mg Nystatin (Nystop Topical Powder) 1 applic TOP BID MIRA Stop: 11/09/16 10:00 Pantoprazole Sodium (Protonix Inj) 40 mg IVP DAILY [facility] Thiamine HCl (Vitamin B1 Inj) 100 mg IV DAILY MIRA Last Admin: 10/25/16 17:20 Dose: 100 mg - Labs Labs: 10/26/16 06:20 10/26/16 06:20 PT 18.5 SECONDS (9.7-12.2) H 10/21/16 11:04 INR 1.6 10/21/16 11:04 APTT 37 SECONDS (21-34) H 10/21/16 11:04 - Eye Exam Additional comments: No icterus - Respiratory Exam Additional comments: Lungs clear anteriioly. No wheezes - Cardiovascular Exam Cardiovascular Exam: REGULAR RHYTHM Additional comments: sinus rythm 72/min - GI/Abdominal Exam GI & Abdominal Exam: Soft - Extremities Exam Additional comments: No pedal edema Assessment and Plan - Assessment and Plan (Free Text) Assessment: RUPALI/ATn Continue HD support. Urine out put slightly improved but still sluggish B/L pneumonia., pleural effusions Respiratory failureSepsis Alcoholism Plan: Blood pressures are lower today. May need pressors during dialysis UF as tolerated Vancomycin level
--- NOTE | 2016-10-26 13:19 | RAD ---
HISTORY: Intubation COMPARISON: Chest x-ray performed 10/25/16 TECHNIQUE: Chest, one view. FINDINGS: Right-sided MediPort terminates at the expected location of the SVC. Endotracheal tube terminates approximately 4.2 cm above the level the sarah. Nasogastric tube extends expected location of the stomach. LUNGS: Complete opacification of the right bonita thorax. Interstitial prominence throughout the left bonita thorax may reflect infection or edema. Left basilar atelectasis or pneumonia. Bilateral pleural effusions. No definite pneumothorax. Please note that chest x-ray has limited sensitivity for the detection of pulmonary masses. CARDIOVASCULAR: Partially obscured. OSSEOUS STRUCTURES: No acute osseous abnormality identified. VISUALIZED UPPER ABDOMEN: Unremarkable. OTHER FINDINGS: None. IMPRESSION: Support lines and tubes as above. Complete opacification of the right bonita thorax. Interstitial prominence throughout the left bonita thorax may reflect infection or edema. Left basilar atelectasis or pneumonia. Bilateral pleural effusions.
[2016-10-26] MEDS: Midazolam 50 mg/10 ml 100 MG in Dextrose 5% In Water 80 ML IV SCH (13:52)
[2016-10-26] MEDS ORDERED: Vancomycin 1 gm/NS 200 ml 1 GM/200 ML BAG IVPB ONE (14:00)
[2016-10-26] MEDS: Thiamine 100 mg/ml Inj IV SCH (14:35)
[2016-10-26] MEDS: MethylPREDNISolone 40 mg Vial IV SCH (18:54)
[2016-10-26] MEDS: Albumin Human 25% (12.5 gm/50 ml) IV SCH (19:10)
[2016-10-26 20:24] LABS: BASO % 0.1 % (0.0-2.0); EOS # 0.3 K/uL (0.0-0.7); EOS % 1.2 % (0.0-4.0); HEMATOCRIT 31.6 % (35.0-51.0); LYMPH # 1.3 K/uL (1.0-4.3); LYMPH % 6.3 % (20.0-40.0); MEAN CELL VOLUME 97.5 fL (80.0-94.0); MEAN CORPUSCULAR HEMOGLOBIN 32.5 pg (27.0-31.0); MEAN CORPUSCULAR HGB CONC 33.3 g/dL (33.0-37.0); MEAN PLATELET VOLUME 10.7 fL (7.2-11.7); MONO # 0.9 K/uL (0.0-0.8); MONO % 4.2 % (0.0-10.0); PLATELET COUNT 78 K/uL (130-400); RED CELL DISTRIBUTION WIDTH 15.1 % (11.5-14.5); WHITE BLOOD COUNT 21.4 K/uL (4.8-10.8)
[2016-10-26 20:34] LABS: POTASSIUM 4.1 mmol/L (3.6-5.2)
[2016-10-26 20:36] LABS: ALB/GLOB RATIO 0.7 (1.0-2.1); BILIRUBIN,TOTAL 4.2 mg/dL (0.2-1.3); PHOSPHOROUS 5.4 mg/dL (2.5-4.5); TOTAL PROTEIN 6.5 g/dL (6.3-8.3)
[2016-10-26 20:37] LABS: CALCIUM 7.4 mg/dl (8.6-10.4); MAGNESIUM 2.3 mg/dL (1.6-2.3)
[2016-10-26 21:44] LABS: EOSINOPHIL 1 % (0-4); NEUTROPHIL 90 % (50-75); TOTAL CELLS COUNTED 100
--- NOTE | 2016-10-26 22:08 | CARD ---
APPROVED REPORT EXAM: Two-dimensional and M-mode echocardiogram with Doppler and color Doppler. Other Information Quality : LimitedTechnically LimitedRhythm : INDICATION sepsis; pnuemonia RISK FACTORS Hypertension M-Mode DIMENSIONS Left Atrium (MM)3.17 (2.5-4.0cm)IVSd1.01 (0.7-1.1cm) Aortic Root2.56 (2.2-3.7cm)LVDd4.82 (4.0-5.6cm) Aortic Cusp Exc.1.04 (1.5-2.0cm)PWd1.15 (0.7-1.1cm) FS (%) 28 %LVDs3.47 (2.0-3.8cm) LVEF (%)54 (>50%) Mitral Valve E/A ratio0.0 TDI E/Lateral E'0.0E/Medial E'0.0 Tricuspid Valve TR Peak [id number] Peak [id number] LEFT VENTRICLE The left ventricle is normal size. There is normal left ventricular wall thickness. Left ventricle systolic function is normal. The Ejection Fraction is 50-55%. There is normal LV segmental wall motion. The left ventricular diastolic function is normal. RIGHT VENTRICLE The right ventricle is normal size. There is normal right ventricular wall thickness. The right ventricular systolic function is normal. ATRIA The left atrium size is normal. The right atrium size is normal. The interatrial septum is intact with no evidence for an atrial septal defect. AORTIC VALVE The aortic valve is normal in structure. No aortic regurgitation is present. There is no aortic valvular stenosis. MITRAL VALVE The mitral valve is normal in structure. There is no evidence of mitral valve prolapse. There is no mitral valve stenosis. There is no mitral valve regurgitation noted. TRICUSPID VALVE There is an elongated mobile density noted attached to the tricuspid valve which could represent papillary muscle, vegetations or myxoma. Suggest TAY. There is trace to mild tricuspid regurgitation. Right ventricular systolic pressure is estimated at 30 mmHg. There is borderline pulmonary hypertension. There is no tricuspid valve prolapse or vegetation. PULMONIC VALVE The pulmonic valve is not well visualized. There is no pulmonic valvular regurgitation. GREAT VESSELS The aortic root is normal in size. PERICARDIAL EFFUSION There is no significant pericardial effusion. <Conclusion> Left ventricle systolic function is normal. The Ejection Fraction is 50-55%. No aortic regurgitation is present. There is no mitral valve regurgitation noted. There is trace to mild tricuspid regurgitation. There is borderline pulmonary hypertension. There is no pulmonic valvular regurgitation. There is an elongated mobile density noted attached to the ventricular side of the tricuspid valve which could represent papillary muscle, vegetations or myxoma. Suggest TAY.
[2016-10-27] MEDS: Albuterol 0.042% Inhal Sol (1.25 mg/3 mL) UD INH SCH ×4 (01:23→19:36)
[2016-10-27] MEDS: Albumin Human 25% (12.5 gm/50 ml) IV SCH ×2 (02:18→12:01)
[2016-10-27] MEDS: MethylPREDNISolone 40 mg Vial IV SCH ×3 (02:18→18:00)
[2016-10-27] MEDS: cefTRIAXone IV 1 gm in Dextros 50 ML IVPB SCH ×2 (02:19→14:47)
[2016-10-27] MEDS: Dexmedetomidine Hydrochloride 400 MCG in Sodium Chloride 0.9% 96 ML IV PRN ×4 (03:10→23:23)
[2016-10-27 05:49] LABS: ABG ALLEN TEST POS; ABG MECHANICAL RATE 24; ARTERIAL BLOOD GAS MODE PRVC; ARTERIAL BLOOD HGB O2 SAT 84.5 % (95.0-98.0); ATERIAL BLOOD GAS PEEP 10; CARBOXYHEMOGLOBIN 2.2 % (0.5-1.5); DRAW SITE LR; HHB 12.4 % (0.0-5.0); METHEMOGLOBIN 0.9 % (0.0-3.0)
[2016-10-27 06:36] LABS: BASO % 0.1 % (0.0-2.0); EOS % 0.1 % (0.0-4.0); HEMATOCRIT 33.6 % (35.0-51.0); LYMPH # 0.8 K/uL (1.0-4.3); LYMPH % 3.9 % (20.0-40.0); MEAN CELL VOLUME 98.3 fL (80.0-94.0); MEAN CORPUSCULAR HEMOGLOBIN 32.4 pg (27.0-31.0); MEAN PLATELET VOLUME 10.7 fL (7.2-11.7); MONO # 0.9 K/uL (0.0-0.8); NRBC % 0.1 % (0.0-2.0); PLATELET COUNT 106 K/uL (130-400); RED CELL DISTRIBUTION WIDTH 15.4 % (11.5-14.5); WHITE BLOOD COUNT 21.5 K/uL (4.8-10.8)
[2016-10-27 06:50] LABS: ALB/GLOB RATIO 0.6 (1.0-2.1); CALCIUM 7.4 mg/dl (8.6-10.4); POTASSIUM 4.6 mmol/L (3.6-5.2)
[2016-10-27 08:05] LABS: NEUTROPHIL 83 % (50-75); REACTIVE LYMPHOCYTES 3 % (0-0); TOTAL CELLS COUNTED 100
--- NOTE | 2016-10-27 08:38 | RAD ---
HISTORY: decreased O2 saturation COMPARISON: 09/26/2016 712 hours FINDINGS: LUNGS: Interval partial aeration of the central right perihilar lung has occurred. Interval left airspace coalescence -left perihilar distribution. PLEURA: Moderate right pleural effusion. Suspect small left pleural effusion. No pneumothorax apparent. CARDIOVASCULAR: Normal heart size. Inferred central pulmonary venous congestion OSSEOUS STRUCTURES: Rightward convexity upper thorax - apparently positional VISUALIZED UPPER ABDOMEN: NG tube coursing over gastric stomach tip probably here OTHER FINDINGS: Endotracheal tube tip 45 cm cephalad to sarah Right central line -internal jugular vein approach -tip superior vena cava IMPRESSION: Pulmonary edema with bilateral pleural effusions -favored Mixed change: Partial clearing right mid lung zone/right perihilar. Worsening left lung pulmonary edema. Right pleural effusion -unchanged limited assessment. Small left pleural effusions -probably similar to minimally increased Concomitant atelectasis and/or infiltrates -possible
--- NOTE | 2016-10-27 09:03 | RAD ---
Chest x-ray single frontal view History: Intubation. Comparison: 10/26/2016 Findings: Lines and tubes in stable position. Dense confluent airspace consolidative changes throughout both lungs with associated bilateral pleural effusions. Cardiomegaly. Degenerative changes in the spine and shoulders. Impression: Lines and tubes in stable position. Dense confluent airspace consolidative changes throughout both lungs with associated bilateral pleural effusions. Cardiomegaly.
[2016-10-27] MEDS: Thiamine 100 mg/ml Inj IV SCH (09:40)
[2016-10-27] MEDS: Ammonium Lactate 12% Lotion (225 g) EXT SCH ×2 (09:45→18:01)
--- NOTE | 2016-10-27 10:26 | CP.PCM.PN ---
Subjective - Date & Time of Evaluation Date of Evaluation: 10/27/16 Time of Evaluation: 09:30 - Subjective Subjective: remaine intubated on ventilator support Objective - Vital Signs/Intake and Output Vital Signs (last 24 hours): Temp Pulse Resp BP Pulse Ox 98.4 F 67 18 94/61 L 92 L 10/27/16 08:00 10/27/16 09:00 10/27/16 09:00 10/27/16 08:42 10/27/16 09:00 Intake and Output: 10/27/16 10/27/16 06:59 18:59 Intake Total 1049.8 160.8 Output Total 325 100 Balance 724.8 60.8 - Medications Medications: Current Medications Acetaminophen (Tylenol 650mg/20.3ml Solution Ud) 650 mg PO Q6 PRN PRN Reason: Temperature Last Admin: 10/25/16 12:15 Dose: 650 mg Albumin Human (Albumin Human 25% (12.5 Gm/50 Ml)) 12.5 gm IV Q8H [facility] Stop: 10/28/16 10:46 Last Admin: 10/27/16 02:18 Dose: 12.5 gm Albuterol Sulfate (Albuterol 0.042% Inhal Nikky (1.25mg/3ml) Ud) 1.25 mg INH RQ6 MIRA Last Admin: 10/27/16 07:23 Dose: 1.25 mg Heparin Sodium (Porcine) (Heparin) 5,000 units SC Q8 MIRA Last Admin: 10/27/16 06:06 Dose: 5,000 units Ceftriaxone Sodium (Rocephin Iv 1 Gm Duplex) 50 mls @ 100 mls/hr IVPB Q12H MIRA Last Admin: 10/27/16 02:19 Dose: 100 mls/hr Midazolam HCl 100 mg/ Dextrose 100 mls @ 2.04 mls/hr IV .Q24H MIRA; 0.02 MG/KG/ HR PRN Reason: Protocol Last Titration: 10/26/16 21:05 Dose: 0.04 mg/kg/hr, 5 mls/hr Folic Acid 1 mg/ Sodium (Chloride) 100.2 mls @ 60 mls/hr IV DAILY MIRA Last Admin: 10/27/16 09:41 Dose: 60 mls/hr Dexmedetomidine HCl 400 mcg/ (Sodium Chloride) 100 mls @ 5.1 mls/hr IV TITR PRN ; Protocol; 0.2 MCG/KG/HR PRN Reason: Agitation Last Admin: 10/27/16 03:10 Dose: 0.7 mcg/kg/hr, 17.85 mls/hr Norepinephrine Bitartrate 4 mg (/ Dextrose) 254 mls @ 15.24 mls/hr IV .[id number] PRN; Protocol; 4 MCG/MIN PRN Reason: TITRATE PER MD ORDER Last Admin: 10/26/16 19:00 Dose: 4 mcg/min, 15.24 mls/hr Lactic Acid (Lac-Hydrin 12% Lotion (225 G)) 0 gm EXT BID MIRA Last Admin: 10/27/16 09:45 Dose: 1 applic Methylprednisolone (Solu-Medrol) 40 mg IV Q8H MIRA Last Admin: 10/27/16 02:18 Dose: 40 mg Midazolam HCl (Versed Inj) 2 mg IVP Q4H PRN PRN Reason: Agitation Last Admin: 10/25/16 08:45 Dose: 2 mg Nystatin (Nystop Topical Powder) 1 applic TOP BID MIRA Stop: 11/09/16 10:00 Last Admin: 10/27/16 09:44 Dose: 1 applic Pantoprazole Sodium (Protonix Inj) 40 mg IVP DAILY MIRA Last Admin: 10/27/16 09:41 Dose: 40 mg Thiamine HCl (Vitamin B1 Inj) 100 mg IV DAILY [facility] Last Admin: 10/27/16 09:40 Dose: 100 mg - Labs Labs: 10/27/16 06:26 10/27/16 06:26 PT 18.5 SECONDS (9.7-12.2) H 10/21/16 11:04 INR 1.6 10/21/16 11:04 APTT 33 SECONDS (21-34) 10/27/16 06:26 - Respiratory Exam Additional comments: Lungs clear anteriorly No wheezes - Cardiovascular Exam Cardiovascular Exam: REGULAR RHYTHM - GI/Abdominal Exam GI & Abdominal Exam: Distended - Extremities Exam Additional comments: B/L upper extrem edema Assessment and Plan - Assessment and Plan (Free Text) Assessment: RUPALI on hemodialysis support Rising BUN/Creat sec to hypercatabolic state secondary to sepsis & tube feedings Dialysis is schedule for today Sepsis, Repiratory failure,B/L pneumonia, Hypoxia Alcoholism Plan: Dialysis is ordered. Dialysis catheter needs to be replaced Vascular Sx consult is requested Blood pressures are low may need pressors during dialysis
--- NOTE | 2016-10-27 10:55 | CP.PCM.CON ---
History of Present Illness - History of Present Illness History of Present Illness: Vascular surgery consult note for Dr. Meredith Vega, PGY-1 Pt S & E at bedside. 45M with mostly unknown PMH admitted to ICU s/p grand mal seizure 2/2 ETOH abuse intubated and sedated consulted for more permanent dialysis access. Pt intubated and sedated, unable to obtain ROS. PMH: ETOH abuse, s/p seizure PSH: Unknown All: Unknown SH: ETOH abuse, unknown, homeless Review of Systems - Review of Systems Systems not reviewed;Unavailable: Acuity of Condition, Altered Mental Status, Intubated Past Patient History - Infectious Disease Hx of Infectious Diseases: None - Past Social History Smoking Status: Former Smoker - CARDIAC Hx Hypertension: Yes - INTEGUMENTARY Hx Psoriasis: Yes - MUSCULOSKELETAL/RHEUMATOLOGICAL Hx Falls: No - PSYCHIATRIC Hx Substance Use: No - SURGICAL HISTORY Hx Surgeries: No - ANESTHESIA Hx Anesthesia: No Meds Allergies/Adverse Reactions: Allergies Allergy/AdvReac Type Severity Reaction Status Date / Time No Known Allergies Allergy Verified 10/21/16 10:28 - Medications Medications: Current Medications Acetaminophen (Tylenol 650mg/20.3ml Solution Ud) 650 mg PO Q6 PRN PRN Reason: Temperature Last Admin: 10/25/16 12:15 Dose: 650 mg Albumin Human (Albumin Human 25% (12.5 Gm/50 Ml)) 12.5 gm IV Q8H [facility] Stop: 10/28/16 10:46 Last Admin: 10/27/16 02:18 Dose: 12.5 gm Albuterol Sulfate (Albuterol 0.042% Inhal Nikky (1.25mg/3ml) Ud) 1.25 mg INH RQ6 [facility] Last Admin: 10/27/16 07:23 Dose: 1.25 mg Heparin Sodium (Porcine) (Heparin) 5,000 units SC Q8 [facility] Last Admin: 10/27/16 06:06 Dose: 5,000 units Ceftriaxone Sodium (Rocephin Iv 1 Gm Duplex) 50 mls @ 100 mls/hr IVPB Q12H [facility] Last Admin: 10/27/16 02:19 Dose: 100 mls/hr Midazolam HCl 100 mg/ Dextrose 100 mls @ 2.04 mls/hr IV .Q24H [facility]; 0.02 MG/KG/ HR PRN Reason: Protocol Last Titration: 10/26/16 21:05 Dose: 0.04 mg/kg/hr, 5 mls/hr Folic Acid 1 mg/ Sodium (Chloride) 100.2 mls @ 60 mls/hr IV DAILY [facility] Last Admin: 10/27/16 09:41 Dose: 60 mls/hr Dexmedetomidine HCl 400 mcg/ (Sodium Chloride) 100 mls @ 5.1 mls/hr IV TITR PRN ; Protocol; 0.2 MCG/KG/HR PRN Reason: Agitation Last Admin: 10/27/16 10:42 Dose: 0.7 mcg/kg/hr, 17.85 mls/hr Norepinephrine Bitartrate 4 mg (/ Dextrose) 254 mls @ 15.24 mls/hr IV .[id number] PRN; Protocol; 4 MCG/MIN PRN Reason: TITRATE PER MD ORDER Last Admin: 10/26/16 19:00 Dose: 4 mcg/min, 15.24 mls/hr Lactic Acid (Lac-Hydrin 12% Lotion (225 G)) 0 gm EXT BID [facility] Last Admin: 10/27/16 09:45 Dose: 1 applic Methylprednisolone (Solu-Medrol) 40 mg IV Q8H [facility] Last Admin: 10/27/16 02:18 Dose: 40 mg Midazolam HCl (Versed Inj) 2 mg IVP Q4H PRN PRN Reason: Agitation Last Admin: 10/25/16 08:45 Dose: 2 mg Nystatin (Nystop Topical Powder) 1 applic TOP BID [facility] Stop: 11/09/16 10:00 Last Admin: 10/27/16 09:44 Dose: 1 applic Pantoprazole Sodium (Protonix Inj) 40 mg IVP DAILY [facility] Last Admin: 10/27/16 09:41 Dose: 40 mg Thiamine HCl (Vitamin B1 Inj) 100 mg IV DAILY [facility] Last Admin: 10/27/16 09:40 Dose: 100 mg Physical Exam - Constitutional Appears: Toxic - Head Exam Head Exam: ATRAUMATIC, NORMAL INSPECTION, NORMOCEPHALIC - Eye Exam Pupil Exam: Miosis - ENT Exam Additional comments: OGT and ET tubes in place - Neck Exam Additional comments: Right IJ triple lumen in place - Respiratory Exam Additional comments: Pt tachypneic on mechanical vent, PRVC RR 24, TV 500, PEEP 10, FiO2 100% - Cardiovascular Exam Cardiovascular Exam: REGULAR RHYTHM, +S1, +S2 - GI/Abdominal Exam GI & Abdominal Exam: Soft. absent: Distended, Firm, Guarding, Tenderness - Extremities Exam Additional comments: Right femoral HD catheter in place - Neurological Exam Additional comments: Currently intubated/sedated, withdraws to tactile stimuli - Psychiatric Exam Additional comments: unable to assess - Skin Skin Exam: Diaphoretic, Normal Color, Warm Results - Vital Signs Recent Vital Signs: Last Vital Signs Temp 98.4 F 10/27/16 08:00 Pulse 67 10/27/16 09:00 Resp 18 10/27/16 09:00 BP 94/61 L 10/27/16 08:42 Pulse Ox 92 L 10/27/16 09:00 - Labs Result Diagrams: 10/27/16 06:26 10/27/16 06:26 Labs: Laboratory Results - last 24 hr 10/26/16 10/26/16 10/26/16 11:59 14:14 18:38 WBC RBC Hgb Hct MCV MCH MCHC RDW Plt Count MPV Neut % (Auto) Lymph % (Auto) [place] % (Auto) Eos % (Auto) Baso % (Auto) Neut # Lymph # [place] # Eos # Baso # Neutrophils % (Manual) Band Neutrophils % Lymphocytes % (Manual) Reactive Lymphs % Monocytes % (Manual) Eosinophils % (Manual) Toxic Granulation Platelet Estimate Hypochromasia (manual) Anisocytosis (manual) APTT Puncture Site pCO2 pO2 HCO3 ABG pH ABG Total CO2 ABG O2 Saturation ABG Base Excess ABG Hemoglobin ABG Carboxyhemoglobin POC ABG HHb (Measured) ABG Methemoglobin Nicolas Test A-a O2 Difference Respiratory Index Hgb O2 Saturation Vent Mode Mechanical Rate FiO2 Tidal Volume PEEP Sodium Potassium Chloride Carbon Dioxide Anion Gap BUN Creatinine Est GFR ( Amer) Est GFR (Non-Af Amer) Random Glucose Calcium Phosphorus Magnesium Total Bilirubin AST ALT Alkaline Phosphatase NT-Pro-B Natriuret Pep 9370 H Total Protein Albumin Globulin Albumin/Globulin Ratio Vancomycin Peak 27.7 L Vancomycin Trough 16.4 H 10/26/16 10/26/16 10/27/16 20:18 20:18 05:33 WBC 21.4 H RBC 3.24 L Hgb 10.5 L Hct 31.6 L MCV 97.5 H MCH 32.5 H MCHC 33.3 RDW 15.1 H Plt Count 78 L MPV 10.7 Neut % (Auto) 88.2 H Lymph % (Auto) 6.3 L [place] % (Auto) 4.2 Eos % (Auto) 1.2 Baso % (Auto) 0.1 Neut # 18.9 H Lymph # 1.3 [place] # 0.9 H Eos # 0.3 Baso # 0.0 Neutrophils % (Manual) 90 H Band Neutrophils % 2 Lymphocytes % (Manual) 5 L Reactive Lymphs % Monocytes % (Manual) 2 Eosinophils % (Manual) 1 Toxic Granulation Platelet Estimate Decreased L Hypochromasia (manual) Slight Anisocytosis (manual) Slight APTT Puncture Site Lr pCO2 45 pO2 52 L HCO3 20.8 L ABG pH 7.29 L ABG Total CO2 23.0 ABG O2 Saturation 87.2 L ABG Base Excess -4.9 L ABG Hemoglobin 11.4 L ABG Carboxyhemoglobin 2.2 H POC ABG HHb (Measured) 12.4 H ABG Methemoglobin 0.9 Nicolas Test Pos A-a O2 Difference 605.0 Respiratory Index 11.6 Hgb O2 Saturation 84.5 L Vent Mode Prvc Mechanical Rate 24 FiO2 100.0 Tidal Volume 500 PEEP 10 Sodium 146 Potassium 4.1 Chloride 104 Carbon Dioxide 23 Anion Gap 23 H BUN 80 H Creatinine 6.1 H Est GFR ( Amer) 12 Est GFR (Non-Af Amer) 10 Random Glucose 123 H Calcium 7.4 L Phosphorus 5.4 H Magnesium 2.3 Total Bilirubin 4.2 H AST 90 H ALT 61 Alkaline Phosphatase 119 NT-Pro-B Natriuret Pep Total Protein 6.5 Albumin 2.7 L Globulin 3.8 Albumin/Globulin Ratio 0.7 L Vancomycin Peak Vancomycin Trough 10/27/16 10/27/16 10/27/16 06:26 06:26 06:26 WBC 21.5 H RBC 3.42 L Hgb 11.1 L Hct 33.6 L MCV 98.3 H MCH 32.4 H MCHC 33.0 RDW 15.4 H Plt Count 106 L D MPV 10.7 Neut % (Auto) 91.9 H Lymph % (Auto) 3.9 L [place] % (Auto) 4.0 Eos % (Auto) 0.1 Baso % (Auto) 0.1 Neut # 19.8 H Lymph # 0.8 L [place] # 0.9 H Eos # 0.0 Baso # 0.0 Neutrophils % (Manual) 83 H Band Neutrophils % 9 H Lymphocytes % (Manual) 4 L Reactive Lymphs % 3 H Monocytes % (Manual) 1 Eosinophils % (Manual) Toxic Granulation Present Platelet Estimate Slightly decreased L Hypochromasia (manual) Anisocytosis (manual) Slight APTT 33 Puncture Site pCO2 pO2 HCO3 ABG pH ABG Total CO2 ABG O2 Saturation ABG Base Excess ABG Hemoglobin ABG Carboxyhemoglobin POC ABG HHb (Measured) ABG Methemoglobin Nicolas Test A-a O2 Difference Respiratory Index Hgb O2 Saturation Vent Mode Mechanical Rate FiO2 Tidal Volume PEEP Sodium 147 Potassium 4.6 Chloride 103 Carbon Dioxide 23 Anion Gap 26 H BUN 96 H Creatinine 6.5 H Est GFR ( Amer) 11 Est GFR (Non-Af Amer) 9 Random Glucose 274 H Calcium 7.4 L Phosphorus Magnesium Total Bilirubin 4.0 H AST 82 H ALT 60 Alkaline Phosphatase 128 H NT-Pro-B Natriuret Pep Total Protein 7.0 Albumin 2.7 L Globulin 4.3 H Albumin/Globulin Ratio 0.6 L Vancomycin Peak Vancomycin Trough Assessment & Plan - Assessment and Plan (Free Text) Assessment: 45M w/ESRD requiring dialysis with Right femoral HD catheter in place, need for more permanent HD access Plan: Plan for OR tomorrow for permacath placement NPO after MN- hold tube feeds at MN Hold DVT ppx prior to surgery Consent in chart DW attending Silvia, PGY-1 - Date & Time Date: 10/27/16 Time: 10:56
--- NOTE | 2016-10-27 11:35 | CP.PCM.PN ---
Subjective - Date & Time of Evaluation Date of Evaluation: 10/27/16 Time of Evaluation: 11:15 - Subjective Subjective: Hospitalist Progress Note (Patient was seen and examined at 11:15 AM 10/27/16) 45 year old male who presented to the ER here at [facility] on 10/21/16 itoxicated with complaints of cough and abdominal pain. He was found to be hypotensive, hopoxic, with RUL/RML Pneumonia. He eventually required intubation and ventilator support. He was also found to be in Acute Renal Failure and started receiving HD through [facility] on Wednesday10/23/16, 10/26, and today 10/27/16. He is for Right Perm Cath with Dr. De La Vega for 10/28/16. He became hypotensive on 10/27/16 and therefore was started on Norepinephrine Drip, Albumin, and Solumedrol. His prognosis remains guarded. Patient is under sedation and intubated and therefore could not answer ROS questions. HEENT: NCA, Pupils are pinpoint/round/reactive to light, NO lymphadenopathy, NO JVD, NO thyromegaly, Nasal turbinates are nonerythematous/nonedematous/moist, Oral mucosa is dry. Cardio: NS1 and NS2, NO M/R/G (please note that this exam is limited by interference of diffuse course breath sounds) Resp: Course breath sounds diffusely GI: BSx4 are reduced in all 4 quadrants, Distention, Liver and Spleen could not be adequately palpated secondary to distention, Soft Ext: Pulses are strong and equal, Capillary Refill is 2 seconds, NO cyanosis, NO edema, Patches of Psoriasis on the bilateral elbows/bilateral anterior lower legs Neuro: exam not possible Skin: Bilateral Groin fungal rash Assessment and Plan (1) Alcohol withdrawal Assessment & Plan: Patient with history of DTs since his admission. Management in ICU. Patient is currently intubated and sedated. Status: Acute (2) Hypoxemia/Respiratory Distress Assessment & Plan: Patient is intubated and on ventilator support. Not a candidate for weaning at this time. Dexmedetomidine 50 ml/hr Midazolam 100 ml/hr Status: Acute (3)Sepsis Secondary to Pneumonia and Bacteremia Assessment & Plan: X-ray chest report reviewed 10/24/16 and 10/26/16. Progression of infiltrates throughout the right upper and lower lobe treated infiltrate changes are also seen in the left middle to left lower lung cameron. Bilateral effusions. Chest X Ray 10/27/16 shows dense confluent consolidative changes throughout both lungs with associated bilateral pleural effusions CT Angio Chest 10/23/16 showed NO PE, extensive pulmonary consolidation bilateral lower lobes and RUL, patchy infiltrates NING and RML, bilateral pleural effusions, hepatic cirrhosis, and ascites. Patient has Strep pneumoniae bacteremia as per Blood Culture 10/21/16. Ceftriaxone 1 gm IV 1x/day Vancomycin 1 gm IV x 1 dose given by ICU team 10/24/[address] Aleyda Bowers Status: Acute (4). Hypotension Solumedrol 40mg IV Q8H Albumin 12.5 gm IV Q8H Norepinephrine Drip (5) Seizure disorder Assessment & Plan: Secondary to alcohol withdrawal. Patient is currently intubated and sedated. No seizures reported. Neurology Dr. Pineda Status: Acute (6) Thrombocytopenia Assessment & Plan: Likely Secondary to alcohol abuse. Pepcid was discontinued 10/26/16 as this can worsen thrombocytopenia and Protonix 40 mg IV 1x/day was ordered 10/26/16 Platelets today 10/27/16 are at 106 Status: Chronic (6) Psoriasis Status: Acute (7) Renal failure Assessment & Plan: Renal U/S 10/24/16 showed nonobstructing calculus upper/midpole Right Kidney and Abdominal Ascites Hepatitis Panel is negative Patient started on hemodialysis through [facility] which is supected to not be working properly, again today 10/27/16. Patient for Right Perm Cath with Dr. De La Vega for 10/28/16 Status: Acute (8). Anemia Likely Secondary to Chronic Alcohol Use and Renal Failure Stool Occult Blood 10/21/16 is negative HgB/Hct today 10/27/16 is stable at 11.1/33.6 Continue to monitor (9). Hypokalemia Resolved (10). Bilateral Groin Fungal Rash Nystatin Powder 2x/day for 2 weeks started on 10/26/16 (11). Prophylactic Measures Bilateral SCDs Protonix 40 mg IV 1x/day Jevity at 30 mL per hour via NGT NO anticoagulation considering the Anemia and Thrombocytopenia Objective - Vital Signs/Intake and Output Vital Signs (last 24 hours): Temp Pulse Resp BP Pulse Ox 98.4 F 72 25 H 112/72 84 L 10/27/16 08:00 10/27/16 11:16 10/27/16 11:16 10/27/16 11:16 10/27/16 11:16 Intake and Output: 10/27/16 10/27/16 06:59 18:59 Intake Total 1049.8 329.2 Output Total 325 115 Balance 724.8 214.2 - Medications Medications: Current Medications Acetaminophen (Tylenol 650mg/20.3ml Solution Ud) 650 mg PO Q6 PRN PRN Reason: Temperature Last Admin: 10/25/16 12:15 Dose: 650 mg Albumin Human (Albumin Human 25% (12.5 Gm/50 Ml)) 12.5 gm IV Q8H [facility] Last Admin: 10/27/16 02:18 Dose: 12.5 gm Albuterol Sulfate (Albuterol 0.042% Inhal Nikky (1.25mg/3ml) Ud) 1.25 mg INH RQ6 [facility] Last Admin: 10/27/16 07:23 Dose: 1.25 mg Heparin Sodium (Porcine) (Heparin) 5,000 units SC Q8 [facility] Last Admin: 10/27/16 06:06 Dose: 5,000 units Ceftriaxone Sodium (Rocephin Iv 1 Gm Duplex) 50 mls @ 100 mls/hr IVPB Q12H [facility] Last Admin: 10/27/16 02:19 Dose: 100 mls/hr Midazolam HCl 100 mg/ Dextrose 100 mls @ 2.04 mls/hr IV .Q24H [facility]; 0.02 MG/KG/ HR PRN Reason: Protocol Last Titration: 10/26/16 21:05 Dose: 0.04 mg/kg/hr, 5 mls/hr Folic Acid 1 mg/ Sodium (Chloride) 100.2 mls @ 60 mls/hr IV DAILY [facility] Last Admin: 10/27/16 09:41 Dose: 60 mls/hr Dexmedetomidine HCl 400 mcg/ (Sodium Chloride) 100 mls @ 5.1 mls/hr IV TITR PRN ; Protocol; 0.2 MCG/KG/HR PRN Reason: Agitation Last Admin: 10/27/16 10:42 Dose: 0.7 mcg/kg/hr, 17.85 mls/hr Norepinephrine Bitartrate 4 mg (/ Dextrose) 254 mls @ 15.24 mls/hr IV .[id number] PRN; Protocol; 4 MCG/MIN PRN Reason: TITRATE PER MD ORDER Last Admin: 10/26/16 19:00 Dose: 4 mcg/min, 15.24 mls/hr Lactic Acid (Lac-Hydrin 12% Lotion (225 G)) 0 gm EXT BID [facility] Last Admin: 10/27/16 09:45 Dose: 1 applic Methylprednisolone (Solu-Medrol) 40 mg IV Q8H [facility] Last Admin: 10/27/16 10:30 Dose: 40 mg Midazolam HCl (Versed Inj) 2 mg IVP Q4H PRN PRN Reason: Agitation Last Admin: 10/25/16 08:45 Dose: 2 mg Nystatin (Nystop Topical Powder) 1 applic TOP BID [facility] Stop: 11/09/16 10:00 Last Admin: 10/27/16 09:44 Dose: 1 applic Pantoprazole Sodium (Protonix Inj) 40 mg IVP DAILY [facility] Last Admin: 10/27/16 09:41 Dose: 40 mg Thiamine HCl (Vitamin B1 Inj) 100 mg IV DAILY [facility] Last Admin: 10/27/16 09:40 Dose: 100 mg - Labs Labs: 10/27/16 06:26 10/27/16 06:26 PT 18.5 SECONDS (9.7-12.2) H 10/21/16 11:04 INR 1.6 10/21/16 11:04 APTT 33 SECONDS (21-34) 10/27/16 06:26
[2016-10-27] MEDS: Midazolam 50 mg/10 ml 100 MG in Dextrose 5% In Water 80 ML IV SCH ×2 (12:05→18:12)
[2016-10-27] MEDS ORDERED: Albumin Human 25% (12.5 gm/50 ml) IV ONE ×2 (12:15→13:30)
--- NOTE | 2016-10-27 13:14 | CP.CCUPN ---
<Simran Wilde - Last Filed: 10/27/16 14:15> CCU Subjective - Physician Review Subjective (Free Text): Patient was seen and examined at bedside in the AM. Patient is intubated and sedated and therefore cannot answer ROS questions. 10/27/16 14:15 CCU Objective - Vital Signs / Intake & Output Vital Signs (Last 4 hours): Vital Signs Temp Pulse Pulse Resp BP BP Pulse Ox 10/27/16 12:03 76 31 H 109/76 92 L 10/27/16 12:01 109/77 10/27/16 12:00 98.5 F 10/27/16 11:31 108/74 10/27/16 11:16 72 25 H 112/72 112/72 84 L 10/27/16 11:01 76 32 H 104/69 104/69 83 L 10/27/16 11:00 78 32 H 83 L 10/27/16 10:46 76 32 H 103/68 103/68 85 L 10/27/16 10:31 98.8 F 78 73 30 H 119/79 119/79 93 L 10/27/16 10:30 98.8 F 88 28 H 114/80 92 L 10/27/16 10:21 74 27 H 119/81 89 L 10/27/16 10:00 73 26 H 92 L 10/27/16 09:20 67 22 99/62 L 93 L Intake and Output (Last 8hrs): Intake & Output 10/26/16 10/27/16 10/27/16 22:59 06:59 14:59 Intake Total 873.2 708.2 617.1 Output Total 185 205 120 Balance 688.2 503.2 497.1 Weight 225 lb Intake: IV 116 100 354 Intake, IV Amount 497.2 283.2 163.1 Right Proximal Port 20.0 40 25 Internal Jugular Right jugular TLC distal 334 100 48.6 port Right jugular TLC medial 143.2 143.2 89.5 port Tube Feeding 260 325 100 Output: Urine 185 205 120 Urethral (Walters) 185 205 120 Stool 0 0 - Physical Exam Head: Positive for: Atraumatic, Normocephalic Mouth: Positive for: Dry Respiratory/Chest: Positive for: Decreased Breath Sounds, Other (intubated ) Cardiovascular: Positive for: Normal S1, S2, Tachycardic Abdomen: Positive for: Distention, Normal Bowel Sounds Genitourinary Male: Positive for: Other (walters in place) Upper Extremity: Negative for: Edema Lower Extremity: Negative for: Edema Neurological: Negative for: GCS=15, Speech Normal (patient is intubated and sedated ) Skin: Positive for: Other (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, bilateral upper extremities, and in gluteal fold.) Psychiatric: Negative for: Alert (patient is sedated ) - Medications Active Medications: Active Medications Generic Name Dose Route Start Last Admin Trade Name Freq PRN Reason Stop Dose Admin Acetaminophen 650 mg 10/25/16 11:56 10/25/16 12:15 Tylenol 650mg/20.3ml Solution Ud PO 650 mg Q6 PRN Administration Temperature Albumin Human 12.5 gm 10/26/16 18:45 10/27/16 12:01 Albumin Human 25% (12.5 Gm/50 Ml) IV Not Given Q8H MIRA Albumin Human 12.5 gm 10/27/16 13:09 Albumin Human 25% (12.5 Gm/50 Ml) IV 10/27/16 13:10 ONCE ONE Albuterol Sulfate 1.25 mg 10/22/16 14:00 10/27/16 07:23 Albuterol 0.042% Inhal Nikky (1.25mg/3ml) Ud INH 1.25 mg RQ6 MIRA Administration Heparin Sodium (Porcine) 5,000 units 10/26/16 14:00 10/27/16 06:06 Heparin SC 5,000 units Q8 MIRA Administration Ceftriaxone Sodium 50 mls @ 100 mls/hr 10/23/16 13:30 10/27/16 02:19 Rocephin Iv 1 Gm Duplex IVPB 100 mls/hr Q12H MIRA Administration Midazolam HCl 100 mg/ Dextrose 100 mls @ 2.04 mls/hr 10/25/16 09:00 10/27/16 12:05 IV Not Given .Q24H MIRA Protocol 0.02 MG/KG/HR Folic Acid 1 mg/ Sodium 100.2 mls @ 60 mls/hr 10/25/16 14:30 10/27/16 09:41 Chloride IV 60 mls/hr DAILY MIRA Administration Dexmedetomidine HCl 400 mcg/ 100 mls @ 5.1 mls/hr 10/26/16 01:30 10/27/16 10: 42 Sodium Chloride IV 0.7 mcg/kg/hr TITR PRN 17.85 mls/hr Agitation Administration Protocol 0.2 MCG/KG/HR Norepinephrine Bitartrate 4 mg 254 mls @ 15.24 mls/hr 10/26/16 18:39 12:03 / Dextrose IV 4 mcg/min .[id number] PRN 15.24 mls/hr TITRATE PER MD ORDER Administration Protocol 4 MCG/MIN Lactic Acid 0 gm 10/22/16 13:00 10/27/16 09:45 Lac-Hydrin 12% Lotion (225 G) EXT 1 applic BID MIRA Administration Methylprednisolone 40 mg 10/26/16 18:41 10/27/16 10:30 Solu-Medrol IV 40 mg Q8H MIRA Administration Midazolam HCl 2 mg 10/22/16 19:22 10/25/16 08:45 Versed Inj IVP 2 mg Q4H PRN Administration Agitation Nystatin 1 applic 10/26/16 10:00 10/27/16 09:44 Nystop Topical Powder TOP 11/09/16 10:00 1 applic BID MIRA Administration Pantoprazole Sodium 40 mg 10/26/16 10:00 10/27/16 09:41 Protonix Inj IVP 40 mg DAILY MIRA Administration Thiamine HCl 100 mg 10/25/16 15:30 10/27/16 09:40 Vitamin B1 Inj IV 100 mg DAILY MIRA Administration - Patient Studies Lab Studies: Microbiology Studies 10/26/16 08:35 S.aureus & Coag-Neg Staph PNA FISH - Final Blood Blood Culture - Preliminary Gram Positive Cocci Gram Stain - Final 10/26/16 09:10 Blood Culture - Preliminary Blood NO GROWTH AFTER 24 HOURS 10/26/16 08:32 Urine Culture - Final Urine,Catheterized No Growth (<1,000 CFU/ML) 10/26/16 08:32 Gram Stain - Final Sputum Lab Studies 10/27/16 10/27/16 10/27/16 Range/Units 06:26 06:26 06:26 WBC 21.5 H (4.8-10.8) K/uL RBC 3.42 L (4.40-5.90) Mil/uL Hgb 11.1 L (12.0-18.0) g/dL Hct 33.6 L (35.0-51.0) % MCV 98.3 H (80.0-94.0) fL MCH 32.4 H (27.0-31.0) pg MCHC 33.0 (33.0-37.0) g/dL RDW 15.4 H (11.5-14.5) % Plt Count 106 L D (130-400) K/uL MPV 10.7 (7.2-11.7) fL Neut % (Auto) 91.9 H (50.0-75.0) % Lymph % (Auto) 3.9 L (20.0-40.0) % [place] % (Auto) 4.0 (0.0-10.0) % Eos % (Auto) 0.1 (0.0-4.0) % Baso % (Auto) 0.1 (0.0-2.0) % Neut # 19.8 H (1.8-7.0) K/uL Lymph # 0.8 L (1.0-4.3) K/uL [place] # 0.9 H (0.0-0.8) K/uL Eos # 0.0 (0.0-0.7) K/uL Baso # 0.0 (0.0-0.2) K/uL Neutrophils % (Manual) 83 H (50-75) % Band Neutrophils % 9 H (0-2) % Lymphocytes % (Manual) 4 L (20-40) % Reactive Lymphs % 3 H (0-0) % Monocytes % (Manual) 1 (0-10) % Eosinophils % (Manual) (0-4) % Toxic Granulation Present Platelet Estimate Slightly decreased L (NORMAL) Hypochromasia (manual) Anisocytosis (manual) Slight APTT 33 (21-34) SECONDS Puncture Site pCO2 (35-45) mm/Hg pO2 (80-100) mm/Hg HCO3 (21-28) mmol/L ABG pH (7.35-7.45) ABG Total CO2 (22-28) mmol/L ABG O2 Saturation (95-98) % ABG Base Excess (-2.0-3.0) mmol/L ABG Hemoglobin (11.7-17.4) g/dL ABG Carboxyhemoglobin (0.5-1.5) % POC ABG HHb (Measured) (0.0-5.0) % ABG Methemoglobin (0.0-3.0) % Nicolas Test A-a O2 Difference mm/Hg Respiratory Index Hgb O2 Saturation (95.0-98.0) % Vent Mode Mechanical Rate FiO2 % Tidal Volume PEEP Sodium 147 (132-148) mmol/L Potassium 4.6 (3.6-5.2) mmol/L Chloride 103 (98-107) mmol/L Carbon Dioxide 23 (22-30) mmol/L Anion Gap 26 H (10-20) BUN 96 H (9-20) mg/dL Creatinine 6.5 H (0.8-1.5) MG/DL Est GFR ( Amer) 11 Est GFR (Non-Af Amer) 9 Random Glucose 274 H (75-110) mg/dL Calcium 7.4 L (8.6-10.4) mg/dl Phosphorus (2.5-4.5) mg/dL Magnesium (1.6-2.3) mg/dL Total Bilirubin 4.0 H (0.2-1.3) mg/dL AST 82 H (17-59) U/L ALT 60 (21-72) U/L Alkaline Phosphatase 128 H (38-126) U/L Total Protein 7.0 (6.3-8.3) g/dL Albumin 2.7 L (3.5-5.0) g/dL Globulin 4.3 H (2.2-3.9) gm/dL Albumin/Globulin Ratio 0.6 L (1.0-2.1) Vancomycin Peak (30.0-40.0) ug/mL Vancomycin Trough (5.0-10.0) ug/mL 10/27/16 10/26/16 10/26/16 Range/Units 05:33 20:18 20:18 WBC 21.4 H (4.8-10.8) K/uL RBC 3.24 L (4.40-5.90) Mil/uL Hgb 10.5 L (12.0-18.0) g/dL Hct 31.6 L (35.0-51.0) % MCV 97.5 H (80.0-94.0) fL MCH 32.5 H (27.0-31.0) pg MCHC 33.3 (33.0-37.0) g/dL RDW 15.1 H (11.5-14.5) % Plt Count 78 L (130-400) K/uL MPV 10.7 (7.2-11.7) fL Neut % (Auto) 88.2 H (50.0-75.0) % Lymph % (Auto) 6.3 L (20.0-40.0) % [place] % (Auto) 4.2 (0.0-10.0) % Eos % (Auto) 1.2 (0.0-4.0) % Baso % (Auto) 0.1 (0.0-2.0) % Neut # 18.9 H (1.8-7.0) K/uL Lymph # 1.3 (1.0-4.3) K/uL [place] # 0.9 H (0.0-0.8) K/uL Eos # 0.3 (0.0-0.7) K/uL Baso # 0.0 (0.0-0.2) K/uL Neutrophils % (Manual) 90 H (50-75) % Band Neutrophils % 2 (0-2) % Lymphocytes % (Manual) 5 L (20-40) % Reactive Lymphs % (0-0) % Monocytes % (Manual) 2 (0-10) % Eosinophils % (Manual) 1 (0-4) % Toxic Granulation Platelet Estimate Decreased L (NORMAL) Hypochromasia (manual) Slight Anisocytosis (manual) Slight APTT (21-34) SECONDS Puncture Site Lr pCO2 45 (35-45) mm/Hg pO2 52 L (80-100) mm/Hg HCO3 20.8 L (21-28) mmol/L ABG pH 7.29 L (7.35-7.45) ABG Total CO2 23.0 (22-28) mmol/L ABG O2 Saturation 87.2 L (95-98) % ABG Base Excess -4.9 L (-2.0-3.0) mmol/L ABG Hemoglobin 11.4 L (11.7-17.4) g/dL ABG Carboxyhemoglobin 2.2 H (0.5-1.5) % POC ABG HHb (Measured) 12.4 H (0.0-5.0) % ABG Methemoglobin 0.9 (0.0-3.0) % Nicolas Test Pos A-a O2 Difference 605.0 mm/Hg Respiratory Index 11.6 Hgb O2 Saturation 84.5 L (95.0-98.0) % Vent Mode Prvc Mechanical Rate 24 FiO2 100.0 % Tidal Volume 500 PEEP 10 Sodium 146 (132-148) mmol/L Potassium 4.1 (3.6-5.2) mmol/L Chloride 104 (98-107) mmol/L Carbon Dioxide 23 (22-30) mmol/L Anion Gap 23 H (10-20) BUN 80 H (9-20) mg/dL Creatinine 6.1 H (0.8-1.5) MG/DL Est GFR ( Amer) 12 Est GFR (Non-Af Amer) 10 Random Glucose 123 H (75-110) mg/dL Calcium 7.4 L (8.6-10.4) mg/dl Phosphorus 5.4 H (2.5-4.5) mg/dL Magnesium 2.3 (1.6-2.3) mg/dL Total Bilirubin 4.2 H (0.2-1.3) mg/dL AST 90 H (17-59) U/L ALT 61 (21-72) U/L Alkaline Phosphatase 119 (38-126) U/L Total Protein 6.5 (6.3-8.3) g/dL Albumin 2.7 L (3.5-5.0) g/dL Globulin 3.8 (2.2-3.9) gm/dL Albumin/Globulin Ratio 0.7 L (1.0-2.1) Vancomycin Peak (30.0-40.0) ug/mL Vancomycin Trough (5.0-10.0) ug/mL 10/26/16 10/26/16 Range/Units 18:38 14:14 WBC (4.8-10.8) K/uL RBC (4.40-5.90) Mil/uL Hgb (12.0-18.0) g/dL Hct (35.0-51.0) % MCV (80.0-94.0) fL MCH (27.0-31.0) pg MCHC (33.0-37.0) g/dL RDW (11.5-14.5) % Plt Count (130-400) K/uL MPV (7.2-11.7) fL Neut % (Auto) (50.0-75.0) % Lymph % (Auto) (20.0-40.0) % [place] % (Auto) (0.0-10.0) % Eos % (Auto) (0.0-4.0) % Baso % (Auto) (0.0-2.0) % Neut # (1.8-7.0) K/uL Lymph # (1.0-4.3) K/uL [place] # (0.0-0.8) K/uL Eos # (0.0-0.7) K/uL Baso # (0.0-0.2) K/uL Neutrophils % (Manual) (50-75) % Band Neutrophils % (0-2) % Lymphocytes % (Manual) (20-40) % Reactive Lymphs % (0-0) % Monocytes % (Manual) (0-10) % Eosinophils % (Manual) (0-4) % Toxic Granulation Platelet Estimate (NORMAL) Hypochromasia (manual) Anisocytosis (manual) APTT (21-34) SECONDS Puncture Site pCO2 (35-45) mm/Hg pO2 (80-100) mm/Hg HCO3 (21-28) mmol/L ABG pH (7.35-7.45) ABG Total CO2 (22-28) mmol/L ABG O2 Saturation (95-98) % ABG Base Excess (-2.0-3.0) mmol/L ABG Hemoglobin (11.7-17.4) g/dL ABG Carboxyhemoglobin (0.5-1.5) % POC ABG HHb (Measured) (0.0-5.0) % ABG Methemoglobin (0.0-3.0) % Nicolas Test A-a O2 Difference mm/Hg Respiratory Index Hgb O2 Saturation (95.0-98.0) % Vent Mode Mechanical Rate FiO2 % Tidal Volume PEEP Sodium (132-148) mmol/L Potassium (3.6-5.2) mmol/L Chloride (98-107) mmol/L Carbon Dioxide (22-30) mmol/L Anion Gap (10-20) BUN (9-20) mg/dL Creatinine (0.8-1.5) MG/DL Est GFR ( Amer) Est GFR (Non-Af Amer) Random Glucose (75-110) mg/dL Calcium (8.6-10.4) mg/dl Phosphorus (2.5-4.5) mg/dL Magnesium (1.6-2.3) mg/dL Total Bilirubin (0.2-1.3) mg/dL AST (17-59) U/L ALT (21-72) U/L Alkaline Phosphatase (38-126) U/L Total Protein (6.3-8.3) g/dL Albumin (3.5-5.0) g/dL Globulin (2.2-3.9) gm/dL Albumin/Globulin Ratio (1.0-2.1) Vancomycin Peak 27.7 L (30.0-40.0) ug/mL Vancomycin Trough 16.4 H (5.0-10.0) ug/mL Laboratory Results - last 24 hr 10/26/16 10/26/16 10/26/16 14:14 18:38 20:18 WBC 21.4 H RBC 3.24 L Hgb 10.5 L Hct 31.6 L MCV 97.5 H MCH 32.5 H MCHC 33.3 RDW 15.1 H Plt Count 78 L MPV 10.7 Neut % (Auto) 88.2 H Lymph % (Auto) 6.3 L [place] % (Auto) 4.2 Eos % (Auto) 1.2 Baso % (Auto) 0.1 Neut # 18.9 H Lymph # 1.3 [place] # 0.9 H Eos # 0.3 Baso # 0.0 Neutrophils % (Manual) 90 H Band Neutrophils % 2 Lymphocytes % (Manual) 5 L Reactive Lymphs % Monocytes % (Manual) 2 Eosinophils % (Manual) 1 Toxic Granulation Platelet Estimate Decreased L Hypochromasia (manual) Slight Anisocytosis (manual) Slight APTT Puncture Site pCO2 pO2 HCO3 ABG pH ABG Total CO2 ABG O2 Saturation ABG Base Excess ABG Hemoglobin ABG Carboxyhemoglobin POC ABG HHb (Measured) ABG Methemoglobin Nicolas Test A-a O2 Difference Respiratory Index Hgb O2 Saturation Vent Mode Mechanical Rate FiO2 Tidal Volume PEEP Sodium Potassium Chloride Carbon Dioxide Anion Gap BUN Creatinine Est GFR ( Amer) Est GFR (Non-Af Amer) Random Glucose Calcium Phosphorus Magnesium Total Bilirubin AST ALT Alkaline Phosphatase Total Protein Albumin Globulin Albumin/Globulin Ratio Vancomycin Peak 27.7 L Vancomycin Trough 16.4 H 10/26/16 10/27/16 10/27/16 20:18 05:33 06:26 WBC 21.5 H RBC 3.42 L Hgb 11.1 L Hct 33.6 L MCV 98.3 H MCH 32.4 H MCHC 33.0 RDW 15.4 H Plt Count 106 L D MPV 10.7 Neut % (Auto) 91.9 H Lymph % (Auto) 3.9 L [place] % (Auto) 4.0 Eos % (Auto) 0.1 Baso % (Auto) 0.1 Neut # 19.8 H Lymph # 0.8 L [place] # 0.9 H Eos # 0.0 Baso # 0.0 Neutrophils % (Manual) 83 H Band Neutrophils % 9 H Lymphocytes % (Manual) 4 L Reactive Lymphs % 3 H Monocytes % (Manual) 1 Eosinophils % (Manual) Toxic Granulation Present Platelet Estimate Slightly decreased L Hypochromasia (manual) Anisocytosis (manual) Slight APTT Puncture Site Lr pCO2 45 pO2 52 L HCO3 20.8 L ABG pH 7.29 L ABG Total CO2 23.0 ABG O2 Saturation 87.2 L ABG Base Excess -4.9 L ABG Hemoglobin 11.4 L ABG Carboxyhemoglobin 2.2 H POC ABG HHb (Measured) 12.4 H ABG Methemoglobin 0.9 Nicolas Test Pos A-a O2 Difference 605.0 Respiratory Index 11.6 Hgb O2 Saturation 84.5 L Vent Mode Prvc Mechanical Rate 24 FiO2 100.0 Tidal Volume 500 PEEP 10 Sodium 146 Potassium 4.1 Chloride 104 Carbon Dioxide 23 Anion Gap 23 H BUN 80 H Creatinine 6.1 H Est GFR ( Amer) 12 Est GFR (Non-Af Amer) 10 Random Glucose 123 H Calcium 7.4 L Phosphorus 5.4 H Magnesium 2.3 Total Bilirubin 4.2 H AST 90 H ALT 61 Alkaline Phosphatase 119 Total Protein 6.5 Albumin 2.7 L Globulin 3.8 Albumin/Globulin Ratio 0.7 L Vancomycin Peak Vancomycin Trough 10/27/16 10/27/16 06:26 06:26 WBC RBC Hgb Hct MCV MCH MCHC RDW Plt Count MPV Neut % (Auto) Lymph % (Auto) [place] % (Auto) Eos % (Auto) Baso % (Auto) Neut # Lymph # [place] # Eos # Baso # Neutrophils % (Manual) Band Neutrophils % Lymphocytes % (Manual) Reactive Lymphs % Monocytes % (Manual) Eosinophils % (Manual) Toxic Granulation Platelet Estimate Hypochromasia (manual) Anisocytosis (manual) APTT 33 Puncture Site pCO2 pO2 HCO3 ABG pH ABG Total CO2 ABG O2 Saturation ABG Base Excess ABG Hemoglobin ABG Carboxyhemoglobin POC ABG HHb (Measured) ABG Methemoglobin Nicolas Test A-a O2 Difference Respiratory Index Hgb O2 Saturation Vent Mode Mechanical Rate FiO2 Tidal Volume PEEP Sodium 147 Potassium 4.6 Chloride 103 Carbon Dioxide 23 Anion Gap 26 H BUN 96 H Creatinine 6.5 H Est GFR ( Amer) 11 Est GFR (Non-Af Amer) 9 Random Glucose 274 H Calcium 7.4 L Phosphorus Magnesium Total Bilirubin 4.0 H AST 82 H ALT 60 Alkaline Phosphatase 128 H Total Protein 7.0 Albumin 2.7 L Globulin 4.3 H Albumin/Globulin Ratio 0.6 L Vancomycin Peak Vancomycin Trough Review of Systems - Review of Systems Systems not reviewed;Unavailable: Intubated Assessment/Plan (1) Alcohol withdrawal Assessment and plan: 45 year old male who presented to the ED with complaint of worsening cough, abdominal pain for seven days. Neuro: - Chronic alcohol abuse - Sedated - Propofol - 0.5 Klonopin 0.5mg - 2mg Midazolam - Intubated - CT of head (10/22): no acute intracranial hemorrhage identified. - Neurology Consult: Dr. Pineda --> help appreciated Pulm: - Intubated - Hypoxic on vent - Right Central Line Placed - 10/22 - CT Angio (10/23): Limited examination for PE. - Chest X-ray worsening right sided lung infiltrate CV: - Monitor Heme: - Thrombocytopenia - Plateletphresis: 1 unit (10/23) Renal: - Walters placed 10/21 - Monitor - Dialysis started 10/23 - Right Femoral Hemodialysis Access placed 10/23 - permacath placement tomorrow 10/28 - Vascular Surgery Consult: Dr. De La Vega --> help appreciated - Nephrology Consult: Dr. Merida --> help appreciated Endo: - Monitor - No acute issues GI: - Tube Feeding - NPO after midnight ID: - Sepsis due to Pneumonia - blood culture: Strep Pneumoniae - Zosyn stopped 10/22 - Ceftriaxone started 10/22 - Vanco started 10/22 - ID Consult: Dr. Bowers --> help appreciated - repeat cultures - f/u Procal DVT proph - SCDs; Heparin started 10/26 GI proph - Pepcid 20mg PO Daily Code status - full code Case discussed with Dr. Jason Wilde PGY-1 Current Visit: Yes Status: Acute Priority: High (2) Sepsis Current Visit: Yes Status: Acute Priority: High (3) Thrombocythemia Current Visit: Yes Status: Chronic (4) Transaminitis Current Visit: Yes Status: Acute <Osmani Gomez - Last Filed: 10/27/16 18:12> CCU Objective - Vital Signs / Intake & Output Vital Signs (Last 4 hours): Vital Signs Temp Pulse Resp BP Pulse Ox 10/27/16 17:43 68 27 H 133/87 96 10/27/16 17:00 66 20 94 L 10/27/16 16:43 69 26 H 130/88 94 L 10/27/16 16:00 98.7 F 80 32 H 93 L 10/27/16 15:43 68 19 126/85 94 L 10/27/16 15:00 65 22 94 L 10/27/16 14:43 68 27 H 122/80 95 10/27/16 14:31 68 26 H 121/81 95 10/27/16 14:16 92 H 20 117/77 94 L Intake and Output (Last 8hrs): Intake & Output 10/27/16 10/27/16 10/27/16 06:59 14:59 22:59 Intake Total 708.2 759.8 215.3 Output Total 205 180 85 Balance 503.2 579.8 130.3 Intake: IV 100 354 100 Intake, IV Amount 283.2 275.8 55.3 Right Proximal Port 40 35 8 Internal Jugular Right jugular TLC distal 100 97.6 11.5 port Right jugular TLC medial 143.2 143.2 35.8 port Tube Feeding 325 130 60 Output: Urine 205 180 85 Urethral (Walters) 205 180 85 Stool 0 0 - Medications Active Medications: Active Medications Generic Name Dose Route Start Last Admin Trade Name Freq PRN Reason Stop Dose Admin Acetaminophen 650 mg 10/25/16 11:56 10/25/16 12:15 Tylenol 650mg/20.3ml Solution Ud PO 650 mg Q6 PRN Administration Temperature Albumin Human 12.5 gm 10/26/16 18:45 10/27/16 12:01 Albumin Human 25% (12.5 Gm/50 Ml) IV Not Given Q8H MIRA Albuterol Sulfate 1.25 mg 10/22/16 14:00 10/27/16 14:18 Albuterol 0.042% Inhal Nikky (1.25mg/3ml) Ud INH 1.25 mg RQ6 MIRA Administration Heparin Sodium (Porcine) 5,000 units 10/26/16 14:00 10/27/16 14:34 Heparin SC 5,000 units Q8 MIRA Administration Ceftriaxone Sodium 50 mls @ 100 mls/hr 10/23/16 13:30 10/27/16 14:47 Rocephin Iv 1 Gm Duplex IVPB 100 mls/hr Q12H MIRA Administration Midazolam HCl 100 mg/ Dextrose 100 mls @ 2.04 mls/hr 10/25/16 09:00 10/27/16 12:05 IV Not Given .Q24H MIRA Protocol 0.02 MG/KG/HR Folic Acid 1 mg/ Sodium 100.2 mls @ 60 mls/hr 10/25/16 14:30 10/27/16 09:41 Chloride IV 60 mls/hr DAILY MIRA Administration Dexmedetomidine HCl 400 mcg/ 100 mls @ 5.1 mls/hr 10/26/16 01:30 10/27/16 16: 12 Sodium Chloride IV 0.7 mcg/kg/hr TITR PRN 17.85 mls/hr Agitation Administration Protocol 0.2 MCG/KG/HR Norepinephrine Bitartrate 4 mg 254 mls @ 15.24 mls/hr 10/26/16 18:39 12:03 / Dextrose IV 4 mcg/min .[id number] PRN 15.24 mls/hr TITRATE PER MD ORDER Administration Protocol 4 MCG/MIN Lactic Acid 0 gm 10/22/16 13:00 10/27/16 18:01 Lac-Hydrin 12% Lotion (225 G) EXT 1 applic BID MIRA Administration Methylprednisolone 40 mg 10/26/16 18:41 10/27/16 18:00 Solu-Medrol IV 40 mg Q8H MIRA Administration Midazolam HCl 2 mg 10/22/16 19:22 10/25/16 08:45 Versed Inj IVP 2 mg Q4H PRN Administration Agitation Nystatin 1 applic 10/26/16 10:00 10/27/16 18:01 Nystop Topical Powder TOP 11/09/16 10:00 1 applic BID MIRA Administration Pantoprazole Sodium 40 mg 10/26/16 10:00 10/27/16 09:41 Protonix Inj IVP 40 mg DAILY MIRA Administration Thiamine HCl 100 mg 10/25/16 15:30 10/27/16 09:40 Vitamin B1 Inj IV 100 mg DAILY MIRA Administration - Patient Studies Lab Studies: Microbiology Studies 10/26/16 08:35 S.aureus & Coag-Neg Staph PNA FISH - Final Blood Blood Culture - Preliminary Gram Positive Cocci Gram Stain - Final 10/26/16 09:10 Blood Culture - Preliminary Blood NO GROWTH AFTER 24 HOURS 10/26/16 08:32 Urine Culture - Final Urine,Catheterized No Growth (<1,000 CFU/ML) 10/26/16 08:32 Gram Stain - Final Sputum Lab Studies 10/27/16 10/27/16 10/27/16 Range/Units 11:10 06:26 06:26 WBC (4.8-10.8) K/uL RBC (4.40-5.90) Mil/uL Hgb (12.0-18.0) g/dL Hct (35.0-51.0) % MCV (80.0-94.0) fL MCH (27.0-31.0) pg MCHC (33.0-37.0) g/dL RDW (11.5-14.5) % Plt Count (130-400) K/uL MPV (7.2-11.7) fL Neut % (Auto) (50.0-75.0) % Lymph % (Auto) (20.0-40.0) % [place] % (Auto) (0.0-10.0) % Eos % (Auto) (0.0-4.0) % Baso % (Auto) (0.0-2.0) % Neut # (1.8-7.0) K/uL Lymph # (1.0-4.3) K/uL [place] # (0.0-0.8) K/uL Eos # (0.0-0.7) K/uL Baso # (0.0-0.2) K/uL Neutrophils % (Manual) (50-75) % Band Neutrophils % (0-2) % Lymphocytes % (Manual) (20-40) % Reactive Lymphs % (0-0) % Monocytes % (Manual) (0-10) % Eosinophils % (Manual) (0-4) % Toxic Granulation Platelet Estimate (NORMAL) Hypochromasia (manual) Anisocytosis (manual) APTT 33 (21-34) SECONDS Puncture Site pCO2 (35-45) mm/Hg pO2 (80-100) mm/Hg HCO3 (21-28) mmol/L ABG pH (7.35-7.45) ABG Total CO2 (22-28) mmol/L ABG O2 Saturation (95-98) % ABG Base Excess (-2.0-3.0) mmol/L ABG Hemoglobin (11.7-17.4) g/dL ABG Carboxyhemoglobin (0.5-1.5) % POC ABG HHb (Measured) (0.0-5.0) % ABG Methemoglobin (0.0-3.0) % Nicolas Test A-a O2 Difference mm/Hg Respiratory Index Hgb O2 Saturation (95.0-98.0) % Vent Mode Mechanical Rate FiO2 % Tidal Volume PEEP Sodium 147 (132-148) mmol/L Potassium 4.6 (3.6-5.2) mmol/L Chloride 103 (98-107) mmol/L Carbon Dioxide 23 (22-30) mmol/L Anion Gap 26 H (10-20) BUN 96 H (9-20) mg/dL Creatinine 6.5 H (0.8-1.5) MG/DL Est GFR ( Amer) 11 Est GFR (Non-Af Amer) 9 Random Glucose 274 H (75-110) mg/dL Calcium 7.4 L (8.6-10.4) mg/dl Phosphorus (2.5-4.5) mg/dL Magnesium (1.6-2.3) mg/dL Total Bilirubin 4.0 H (0.2-1.3) mg/dL AST 82 H (17-59) U/L ALT 60 (21-72) U/L Alkaline Phosphatase 128 H (38-126) U/L Total Protein 7.0 (6.3-8.3) g/dL Albumin 2.7 L (3.5-5.0) g/dL Globulin 4.3 H (2.2-3.9) gm/dL Albumin/Globulin Ratio 0.6 L (1.0-2.1) Procalcitonin 77.01 H (0.19-0.49) NG/ML Vancomycin Peak (30.0-40.0) ug/mL 10/27/16 10/27/16 10/26/16 Range/Units 06:26 05:33 20:18 WBC 21.5 H (4.8-10.8) K/uL RBC 3.42 L (4.40-5.90) Mil/uL Hgb 11.1 L (12.0-18.0) g/dL Hct 33.6 L (35.0-51.0) % MCV 98.3 H (80.0-94.0) fL MCH 32.4 H (27.0-31.0) pg MCHC 33.0 (33.0-37.0) g/dL RDW 15.4 H (11.5-14.5) % Plt Count 106 L D (130-400) K/uL MPV 10.7 (7.2-11.7) fL Neut % (Auto) 91.9 H (50.0-75.0) % Lymph % (Auto) 3.9 L (20.0-40.0) % [place] % (Auto) 4.0 (0.0-10.0) % Eos % (Auto) 0.1 (0.0-4.0) % Baso % (Auto) 0.1 (0.0-2.0) % Neut # 19.8 H (1.8-7.0) K/uL Lymph # 0.8 L (1.0-4.3) K/uL [place] # 0.9 H (0.0-0.8) K/uL Eos # 0.0 (0.0-0.7) K/uL Baso # 0.0 (0.0-0.2) K/uL Neutrophils % (Manual) 83 H (50-75) % Band Neutrophils % 9 H (0-2) % Lymphocytes % (Manual) 4 L (20-40) % Reactive Lymphs % 3 H (0-0) % Monocytes % (Manual) 1 (0-10) % Eosinophils % (Manual) (0-4) % Toxic Granulation Present Platelet Estimate Slightly decreased L (NORMAL) Hypochromasia (manual) Anisocytosis (manual) Slight APTT (21-34) SECONDS Puncture Site Lr pCO2 45 (35-45) mm/Hg pO2 52 L (80-100) mm/Hg HCO3 20.8 L (21-28) mmol/L ABG pH 7.29 L (7.35-7.45) ABG Total CO2 23.0 (22-28) mmol/L ABG O2 Saturation 87.2 L (95-98) % ABG Base Excess -4.9 L (-2.0-3.0) mmol/L ABG Hemoglobin 11.4 L (11.7-17.4) g/dL ABG Carboxyhemoglobin 2.2 H (0.5-1.5) % POC ABG HHb (Measured) 12.4 H (0.0-5.0) % ABG Methemoglobin 0.9 (0.0-3.0) % Nicolas Test Pos A-a O2 Difference 605.0 mm/Hg Respiratory Index 11.6 Hgb O2 Saturation 84.5 L (95.0-98.0) % Vent Mode Prvc Mechanical Rate 24 FiO2 100.0 % Tidal Volume 500 PEEP 10 Sodium 146 (132-148) mmol/L Potassium 4.1 (3.6-5.2) mmol/L Chloride 104 (98-107) mmol/L Carbon Dioxide 23 (22-30) mmol/L Anion Gap 23 H (10-20) BUN 80 H (9-20) mg/dL Creatinine 6.1 H (0.8-1.5) MG/DL Est GFR ( Amer) 12 Est GFR (Non-Af Amer) 10 Random Glucose 123 H (75-110) mg/dL Calcium 7.4 L (8.6-10.4) mg/dl Phosphorus 5.4 H (2.5-4.5) mg/dL Magnesium 2.3 (1.6-2.3) mg/dL Total Bilirubin 4.2 H (0.2-1.3) mg/dL AST 90 H (17-59) U/L ALT 61 (21-72) U/L Alkaline Phosphatase 119 (38-126) U/L Total Protein 6.5 (6.3-8.3) g/dL Albumin 2.7 L (3.5-5.0) g/dL Globulin 3.8 (2.2-3.9) gm/dL Albumin/Globulin Ratio 0.7 L (1.0-2.1) Procalcitonin (0.19-0.49) NG/ML Vancomycin Peak (30.0-40.0) ug/mL 10/26/16 10/26/16 Range/Units 20:18 18:38 WBC 21.4 H (4.8-10.8) K/uL RBC 3.24 L (4.40-5.90) Mil/uL Hgb 10.5 L (12.0-18.0) g/dL Hct 31.6 L (35.0-51.0) % MCV 97.5 H (80.0-94.0) fL MCH 32.5 H (27.0-31.0) pg MCHC 33.3 (33.0-37.0) g/dL RDW 15.1 H (11.5-14.5) % Plt Count 78 L (130-400) K/uL MPV 10.7 (7.2-11.7) fL Neut % (Auto) 88.2 H (50.0-75.0) % Lymph % (Auto) 6.3 L (20.0-40.0) % [place] % (Auto) 4.2 (0.0-10.0) % Eos % (Auto) 1.2 (0.0-4.0) % Baso % (Auto) 0.1 (0.0-2.0) % Neut # 18.9 H (1.8-7.0) K/uL Lymph # 1.3 (1.0-4.3) K/uL [place] # 0.9 H (0.0-0.8) K/uL Eos # 0.3 (0.0-0.7) K/uL Baso # 0.0 (0.0-0.2) K/uL Neutrophils % (Manual) 90 H (50-75) % Band Neutrophils % 2 (0-2) % Lymphocytes % (Manual) 5 L (20-40) % Reactive Lymphs % (0-0) % Monocytes % (Manual) 2 (0-10) % Eosinophils % (Manual) 1 (0-4) % Toxic Granulation Platelet Estimate Decreased L (NORMAL) Hypochromasia (manual) Slight Anisocytosis (manual) Slight APTT (21-34) SECONDS Puncture Site pCO2 (35-45) mm/Hg pO2 (80-100) mm/Hg HCO3 (21-28) mmol/L ABG pH (7.35-7.45) ABG Total CO2 (22-28) mmol/L ABG O2 Saturation (95-98) % ABG Base Excess (-2.0-3.0) mmol/L ABG Hemoglobin (11.7-17.4) g/dL ABG Carboxyhemoglobin (0.5-1.5) % POC ABG HHb (Measured) (0.0-5.0) % ABG Methemoglobin (0.0-3.0) % Nicolas Test A-a O2 Difference mm/Hg Respiratory Index Hgb O2 Saturation (95.0-98.0) % Vent Mode Mechanical Rate FiO2 % Tidal Volume PEEP Sodium (132-148) mmol/L Potassium (3.6-5.2) mmol/L Chloride (98-107) mmol/L Carbon Dioxide (22-30) mmol/L Anion Gap (10-20) BUN (9-20) mg/dL Creatinine (0.8-1.5) MG/DL Est GFR ( Amer) Est GFR (Non-Af Amer) Random Glucose (75-110) mg/dL Calcium (8.6-10.4) mg/dl Phosphorus (2.5-4.5) mg/dL Magnesium (1.6-2.3) mg/dL Total Bilirubin (0.2-1.3) mg/dL AST (17-59) U/L ALT (21-72) U/L Alkaline Phosphatase (38-126) U/L Total Protein (6.3-8.3) g/dL Albumin (3.5-5.0) g/dL Globulin (2.2-3.9) gm/dL Albumin/Globulin Ratio (1.0-2.1) Procalcitonin (0.19-0.49) NG/ML Vancomycin Peak 27.7 L (30.0-40.0) ug/mL Laboratory Results - last 24 hr 10/26/16 10/26/16 10/26/16 18:38 20:18 20:18 WBC 21.4 H RBC 3.24 L Hgb 10.5 L Hct 31.6 L MCV 97.5 H MCH 32.5 H MCHC 33.3 RDW 15.1 H Plt Count 78 L MPV 10.7 Neut % (Auto) 88.2 H Lymph % (Auto) 6.3 L [place] % (Auto) 4.2 Eos % (Auto) 1.2 Baso % (Auto) 0.1 Neut # 18.9 H Lymph # 1.3 [place] # 0.9 H Eos # 0.3 Baso # 0.0 Neutrophils % (Manual) 90 H Band Neutrophils % 2 Lymphocytes % (Manual) 5 L Reactive Lymphs % Monocytes % (Manual) 2 Eosinophils % (Manual) 1 Toxic Granulation Platelet Estimate Decreased L Hypochromasia (manual) Slight Anisocytosis (manual) Slight APTT Puncture Site pCO2 pO2 HCO3 ABG pH ABG Total CO2 ABG O2 Saturation ABG Base Excess ABG Hemoglobin ABG Carboxyhemoglobin POC ABG HHb (Measured) ABG Methemoglobin Nicolas Test A-a O2 Difference Respiratory Index Hgb O2 Saturation Vent Mode Mechanical Rate FiO2 Tidal Volume PEEP Sodium 146 Potassium 4.1 Chloride 104 Carbon Dioxide 23 Anion Gap 23 H BUN 80 H Creatinine 6.1 H Est GFR ( Amer) 12 Est GFR (Non-Af Amer) 10 Random Glucose 123 H Calcium 7.4 L Phosphorus 5.4 H Magnesium 2.3 Total Bilirubin 4.2 H AST 90 H ALT 61 Alkaline Phosphatase 119 Total Protein 6.5 Albumin 2.7 L Globulin 3.8 Albumin/Globulin Ratio 0.7 L Procalcitonin Vancomycin Peak 27.7 L 10/27/16 10/27/16 10/27/16 05:33 06:26 06:26 WBC 21.5 H RBC 3.42 L Hgb 11.1 L Hct 33.6 L MCV 98.3 H MCH 32.4 H MCHC 33.0 RDW 15.4 H Plt Count 106 L D MPV 10.7 Neut % (Auto) 91.9 H Lymph % (Auto) 3.9 L [place] % (Auto) 4.0 Eos % (Auto) 0.1 Baso % (Auto) 0.1 Neut # 19.8 H Lymph # 0.8 L [place] # 0.9 H Eos # 0.0 Baso # 0.0 Neutrophils % (Manual) 83 H Band Neutrophils % 9 H Lymphocytes % (Manual) 4 L Reactive Lymphs % 3 H Monocytes % (Manual) 1 Eosinophils % (Manual) Toxic Granulation Present Platelet Estimate Slightly decreased L Hypochromasia (manual) Anisocytosis (manual) Slight APTT Puncture Site Lr pCO2 45 pO2 52 L HCO3 20.8 L ABG pH 7.29 L ABG Total CO2 23.0 ABG O2 Saturation 87.2 L ABG Base Excess -4.9 L ABG Hemoglobin 11.4 L ABG Carboxyhemoglobin 2.2 H POC ABG HHb (Measured) 12.4 H ABG Methemoglobin 0.9 Nicolas Test Pos A-a O2 Difference 605.0 Respiratory Index 11.6 Hgb O2 Saturation 84.5 L Vent Mode Prvc Mechanical Rate 24 FiO2 100.0 Tidal Volume 500 PEEP 10 Sodium 147 Potassium 4.6 Chloride 103 Carbon Dioxide 23 Anion Gap 26 H BUN 96 H Creatinine 6.5 H Est GFR ( Amer) 11 Est GFR (Non-Af Amer) 9 Random Glucose 274 H Calcium 7.4 L Phosphorus Magnesium Total Bilirubin 4.0 H AST 82 H ALT 60 Alkaline Phosphatase 128 H Total Protein 7.0 Albumin 2.7 L Globulin 4.3 H Albumin/Globulin Ratio 0.6 L Procalcitonin Vancomycin Peak 10/27/16 10/27/16 06:26 11:10 WBC RBC Hgb Hct MCV MCH MCHC RDW Plt Count MPV Neut % (Auto) Lymph % (Auto) [place] % (Auto) Eos % (Auto) Baso % (Auto) Neut # Lymph # [place] # Eos # Baso # Neutrophils % (Manual) Band Neutrophils % Lymphocytes % (Manual) Reactive Lymphs % Monocytes % (Manual) Eosinophils % (Manual) Toxic Granulation Platelet Estimate Hypochromasia (manual) Anisocytosis (manual) APTT 33 Puncture Site pCO2 pO2 HCO3 ABG pH ABG Total CO2 ABG O2 Saturation ABG Base Excess ABG Hemoglobin ABG Carboxyhemoglobin POC ABG HHb (Measured) ABG Methemoglobin Nicolas Test A-a O2 Difference Respiratory Index Hgb O2 Saturation Vent Mode Mechanical Rate FiO2 Tidal Volume PEEP Sodium Potassium Chloride Carbon Dioxide Anion Gap BUN Creatinine Est GFR ( Amer) Est GFR (Non-Af Amer) Random Glucose Calcium Phosphorus Magnesium Total Bilirubin AST ALT Alkaline Phosphatase Total Protein Albumin Globulin Albumin/Globulin Ratio Procalcitonin 77.01 H Vancomycin Peak Attending/Attestation - Attestation I have personally seen and examined this patient.: Yes I have fully participated in the care of the patient.: Yes I have reviewed all pertinent clinical information: Yes Notes (Text): 10/27/16 18:08 Patient seen and examined in the intensive care unit. Case discussed with house staff in the morning dose. Remains intubated on ventilatory support requiring 100% FiO2 Worsening chest x-ray noted Hemodialysis today For permacath placement tomorrow Elevated pro calcitonin level noted and case discussed with infectious disease for possible change of antibiotics Continue Rocephin and vancomycin during dialysis cont IV sedation and pressor support
[2016-10-27] MEDS ORDERED: Vancomycin 1 gm/NS 200 ml 1 GM/200 ML BAG IVPB ONE (19:30)
[2016-10-27] MEDS ORDERED: Gentamicin 80 mg in 0.9% NS 80 MG/100 ML BAG IVPB ONE (21:00)
[2016-10-27] MEDS: cefTRIAXone 2 GM in Sodium Chloride 0.9% 100 ML IVPB SCH (22:29)
[2016-10-28] MEDS: Albuterol 0.042% Inhal Sol (1.25 mg/3 mL) UD INH SCH ×4 (02:30→19:49)
[2016-10-28] MEDS: MethylPREDNISolone 40 mg Vial IV SCH ×3 (03:00→17:54)
[2016-10-28] MEDS: Dexmedetomidine Hydrochloride 400 MCG in Sodium Chloride 0.9% 96 ML IV PRN ×4 (05:00→23:30)
[2016-10-28 06:24] LABS: ABG ALLEN TEST POS; ABG MECHANICAL RATE 24; ARTERIAL BLOOD HGB O2 SAT 78.6 % (95.0-98.0); ATERIAL BLOOD GAS PEEP 10; CARBOXYHEMOGLOBIN 2.2 % (0.5-1.5); DRAW SITE R RAD; HHB 18.3 % (0.0-5.0); METHEMOGLOBIN 0.8 % (0.0-3.0)
[2016-10-28 06:44] LABS: BASO % 0.2 % (0.0-2.0); HEMATOCRIT 29.3 % (35.0-51.0); LYMPH # 0.6 K/uL (1.0-4.3); LYMPH % 4.6 % (20.0-40.0); MEAN CELL VOLUME 97.1 fL (80.0-94.0); MEAN CORPUSCULAR HEMOGLOBIN 32.1 pg (27.0-31.0); MEAN CORPUSCULAR HGB CONC 33.1 g/dL (33.0-37.0); MEAN PLATELET VOLUME 10.9 fL (7.2-11.7); MONO # 0.5 K/uL (0.0-0.8); PLATELET COUNT 65 K/uL (130-400); WHITE BLOOD COUNT 13.8 K/uL (4.8-10.8)
[2016-10-28 06:55] LABS: POTASSIUM 4.7 mmol/L (3.6-5.2)
[2016-10-28 06:57] LABS: ALB/GLOB RATIO 0.6 (1.0-2.1); BILIRUBIN,TOTAL 2.2 mg/dL (0.2-1.3); TOTAL PROTEIN 6.9 g/dL (6.3-8.3)
[2016-10-28 06:58] LABS: MAGNESIUM 2.9 mg/dL (1.6-2.3)
[2016-10-28] MEDS ORDERED: ceFAZolin IV 1 gm in Dextrose 0 GM/0 ML BAG IVPB ONE (08:30)
[2016-10-28] MEDS ORDERED: HEPARIN-NS 5,000 UNITS/500 ML 0 UNIT/0 ML BAG IV ONE (08:30)
[2016-10-28] MEDS ORDERED: Lidocaine 1% Inj (20ml) ONE (08:30)
[2016-10-28 08:34] LABS: NEUTROPHIL 84 % (50-75); NUCLEATED RED BLOOD CELL 1 % (0-0); REACTIVE LYMPHOCYTES 2 % (0-0); TOTAL CELLS COUNTED 100
--- NOTE | 2016-10-28 10:06 | CP.PCM.PN ---
Subjective - Date & Time of Evaluation Date of Evaluation: 10/28/16 Time of Evaluation: 07:10 - Subjective Subjective: Patient s/e at bedside in the ICU this AM. NAEO. Patient intubated on PVR with 10PEEP, 100%fio2. Vitals stable, patient unreponsive to verbal or tactile stimulation Objective - Vital Signs/Intake and Output Vital Signs (last 24 hours): Temp Pulse Resp BP Pulse Ox 98.4 F 55 L 24 125/84 99 10/28/16 04:00 10/28/16 05:43 10/28/16 05:43 10/28/16 05:43 10/28/16 05:43 Intake and Output: 10/28/16 10/28/16 06:59 18:59 Intake Total 1033.8 Output Total 165 Balance 868.8 - Medications Medications: Current Medications Acetaminophen (Tylenol 650mg/20.3ml Solution Ud) 650 mg PO Q6 PRN PRN Reason: Temperature Last Admin: 10/25/16 12:15 Dose: 650 mg Albumin Human (Albumin Human 25% (12.5 Gm/50 Ml)) 12.5 gm IV Q8H [facility] Last Admin: 10/27/16 12:01 Dose: Not Given Albuterol Sulfate (Albuterol 0.042% Inhal Nikky (1.25mg/3ml) Ud) 1.25 mg INH RQ6 [facility] Last Admin: 10/28/16 07:18 Dose: 1.25 mg Heparin Sodium (Porcine) (Heparin) 5,000 units SC Q8 [facility] Last Admin: 10/28/16 06:32 Dose: 5,000 units Midazolam HCl 100 mg/ Dextrose 100 mls @ 2.04 mls/hr IV .Q24H [facility]; 0.02 MG/KG/ HR PRN Reason: Protocol Last Admin: 10/27/16 18:12 Dose: 0.04 mg/kg/hr, 4.08 mls/hr Folic Acid 1 mg/ Sodium (Chloride) 100.2 mls @ 60 mls/hr IV DAILY [facility] Last Admin: 10/27/16 09:41 Dose: 60 mls/hr Dexmedetomidine HCl 400 mcg/ (Sodium Chloride) 100 mls @ 5.1 mls/hr IV TITR PRN ; Protocol; 0.2 MCG/KG/HR PRN Reason: Agitation Last Admin: 10/28/16 05:00 Dose: 0.7 mcg/kg/hr, 17.85 mls/hr Norepinephrine Bitartrate 4 mg (/ Dextrose) 254 mls @ 15.24 mls/hr IV .[id number] PRN; Protocol; 4 MCG/MIN PRN Reason: TITRATE PER MD ORDER Last Admin: 10/27/16 12:03 Dose: 4 mcg/min, 15.24 mls/hr Ceftriaxone Sodium 2 gm/ (Sodium Chloride) 100 mls @ 100 mls/hr IVPB Q12H [facility] Last Admin: 10/27/16 22:29 Dose: 100 mls/hr Lactic Acid (Lac-Hydrin 12% Lotion (225 G)) 0 gm EXT BID [facility] Last Admin: 10/27/16 18:01 Dose: 1 applic Methylprednisolone (Solu-Medrol) 40 mg IV Q8H [facility] Last Admin: 10/28/16 03:00 Dose: 40 mg Midazolam HCl (Versed Inj) 2 mg IVP Q4H PRN PRN Reason: Agitation Last Admin: 10/25/16 08:45 Dose: 2 mg Nystatin (Nystop Topical Powder) 1 applic TOP BID [facility] Stop: 11/09/16 10:00 Last Admin: 10/27/16 18:01 Dose: 1 applic Pantoprazole Sodium (Protonix Inj) 40 mg IVP DAILY [facility] Last Admin: 10/27/16 09:41 Dose: 40 mg Thiamine HCl (Vitamin B1 Inj) 100 mg IV DAILY [facility] Last Admin: 10/27/16 09:40 Dose: 100 mg - Labs Labs: 10/28/16 06:37 10/28/16 06:37 PT 18.5 SECONDS (9.7-12.2) H 10/21/16 11:04 INR 1.6 10/21/16 11:04 APTT 33 SECONDS (21-34) 10/27/16 06:26 - Constitutional Appears: Unkempt, Chronically Ill - Head Exam Head Exam: ATRAUMATIC, NORMOCEPHALIC - ENT Exam Additional comments: ETTube in place - Respiratory Exam Respiratory Exam: absent: Accessory Muscle Use, Respiratory Distress Additional comments: mechanically ventilated - Cardiovascular Exam Cardiovascular Exam: RRR - GI/Abdominal Exam GI & Abdominal Exam: Soft - Extremities Exam Extremities Exam: absent: Calf Tenderness, Pedal Edema - Neurological Exam Neurological Exam: Altered. absent: Alert, Awake, Oriented x3 - Psychiatric Exam Additional comments: chemically sedated/non-responsive to verbal or tactile stimulation - Skin Skin Exam: Dry, Normal Color, Warm Assessment and Plan - Assessment and Plan (Free Text) Assessment: 45M w/ESRD requiring dialysis with Right femoral HD catheter in place, need for more permanent HD access Platelet count of 65 Plan: -Postpone permacath placement due to thrombocytopenia -OR tomorrow AM if platelets are increased -NPO after midnight -Hold DVT prophylaxis in the AM -hold tube feeds in the AM -Continue management per primary. Discussed with Dr. Sunni Anthony, PGY2
--- NOTE | 2016-10-28 10:13 | RAD ---
HISTORY: intubated COMPARISON: 10/27/2016 FINDINGS: LUNGS: Extensive diffuse bilateral pulmonary opacity. Mild improvement in the extent of opacity in the right lung and no change in the left lung. There is raj confluent consolidation in the left perihilar and basilar region. PLEURA: Probable small right pleural effusion. No evidence of left pleural effusion. CARDIOVASCULAR: Normal heart size. ET tube and NG tube unchanged. Right internal jugular central venous catheter. OSSEOUS STRUCTURES: No significant abnormalities. VISUALIZED UPPER ABDOMEN: Normal. OTHER FINDINGS: None. IMPRESSION: Bilateral diffuse pulmonary opacity, nonspecific. Possible congestive heart failure/ pulmonary edema versus pneumonia. Lines and tubes unchanged.
--- NOTE | 2016-10-28 10:23 | CP.PCM.PN ---
Subjective - Date & Time of Evaluation Date of Evaluation: 10/28/16 Time of Evaluation: 10:20 - Subjective Subjective: Hospitalist Progress Note (Patient was seen and examined at 10:20 AM 10/28/16) 45 year old male who presented to the ER here at [facility] ([facility]3] on 10/21/16 itoxicated with complaints of cough and abdominal pain. He was found to be hypotensive, hopoxic, with RUL/RML Pneumonia. He eventually required intubation and ventilator support. He was also found to be in Acute Renal Failure and started receiving HD through Right Femoral Access on Wednesday10/23/16, 10/26, and today 10/27/16. He was for Right Perm Cath with Dr. De La Vega for 10/28/16 however as hist platelets declined, this was put on hold and patient will be transfused 2 bags of platelets as per ICU Team. He became hypotensive on 10/27/16 and therefore was started on Norepinephrine Drip, Albumin, and Solumedrol (which was discontinued on 10/28/16). His prognosis remains guarded. Patient is under sedation and intubated and therefore could not answer ROS questions. HEENT: NCA, Pupils are pinpoint/round/reactive to light, NO lymphadenopathy, NO JVD, NO thyromegaly, Nasal turbinates are nonerythematous/nonedematous/moist, Oral mucosa is dry. Cardio: NS1 and NS2, NO M/R/G (please note that this exam is limited by interference of diffuse course breath sounds) Resp: Course breath sounds diffusely GI: BSx4 are reduced in all 4 quadrants, Distention, Liver and Spleen could not be adequately palpated secondary to distention, Soft Ext: Pulses are strong and equal, Capillary Refill is 2 seconds, NO cyanosis, NO edema, Patches of Psoriasis on the bilateral elbows/bilateral anterior lower legs Neuro: exam not possible Skin: Bilateral Groin fungal rash Assessment and Plan (1) Alcohol withdrawal Assessment & Plan: Patient with history of DTs since his admission. Management in ICU. Patient is currently intubated and sedated. Status: Acute (2) Hypoxemia/Respiratory Distress Assessment & Plan: Patient is intubated and on ventilator support. Not a candidate for weaning at this time. Dexmedetomidine 50 ml/hr Midazolam 100 ml/hr Status: Acute (3)Sepsis Secondary to Pneumonia and Bacteremia Assessment & Plan: X-ray chest report reviewed 10/24/16 and 10/26/16. Progression of infiltrates throughout the right upper and lower lobe treated infiltrate changes are also seen in the left middle to left lower lung cameron. Bilateral effusions. Chest X Ray 10/27/16 shows dense confluent consolidative changes throughout both lungs with associated bilateral pleural effusions CT Angio Chest 10/23/16 showed NO PE, extensive pulmonary consolidation bilateral lower lobes and RUL, patchy infiltrates NING and RML, bilateral pleural effusions, hepatic cirrhosis, and ascites. Patient has Strep pneumoniae bacteremia as per Blood Culture 10/21/16 and Coag Neg Staph (which may be a contaminant) on 04/06 Blood Cultures from 10/26/16 Ceftriaxone 1 gm IV 1x/day Vancomycin 1 gm IV x 1 dose given by ICU team 10/24/[address] Aleyda Bowers Status: Acute (4). Hypotension Albumin 12.5 gm IV Q8H Norepinephrine Drip (5) Seizure disorder Assessment & Plan: Secondary to alcohol withdrawal. Patient is currently intubated and sedated. No seizures reported. Neurology Dr. Pineda Status: Acute (6) Thrombocytopenia Assessment & Plan: Likely Secondary to alcohol abuse. Pepcid was discontinued 10/26/16 as this can worsen thrombocytopenia and Protonix 40 mg IV 1x/day was ordered 10/26/16 Platelets today 10/28/16 are at 66 He is to receive 2 bags of platelets 10/28/16 as per ICU Team Status: Chronic (6) Psoriasis Status: Acute (7) Renal failure Assessment & Plan: Renal U/S 10/24/16 showed nonobstructing calculus upper/midpole Right Kidney and Abdominal Ascites Hepatitis Panel is negative Patient started on hemodialysis through Right Femoral Access which is supected to not be working properly Patient for Right Perm Cath with Dr. De La Vega once 2 bags of platelets are transfused 10/28/16 Status: Acute (8). Anemia Likely Secondary to Chronic Alcohol Use and Renal Failure Stool Occult Blood 10/21/16 is negative HgB/Hct today 10/28/16 is stable at 9.7/29.3 Continue to monitor (9). Hypokalemia Resolved (10). Bilateral Groin Fungal Rash Nystatin Powder 2x/day for 2 weeks started on 10/26/16 (11). Prophylactic Measures Bilateral SCDs Protonix 40 mg IV 1x/day Jevity at 30 mL per hour via NGT NO anticoagulation considering the Anemia and Thrombocytopenia Von Burkett D.O. Objective - Vital Signs/Intake and Output Vital Signs (last 24 hours): Temp Pulse Resp BP Pulse Ox 98.4 F 55 L 24 125/84 99 10/28/16 04:00 10/28/16 05:43 10/28/16 05:43 10/28/16 05:43 10/28/16 05:43 Intake and Output: 10/28/16 10/28/16 06:59 18:59 Intake Total 1033.8 Output Total 165 Balance 868.8 - Medications Medications: Current Medications Acetaminophen (Tylenol 650mg/20.3ml Solution Ud) 650 mg PO Q6 PRN PRN Reason: Temperature Last Admin: 10/25/16 12:15 Dose: 650 mg Albumin Human (Albumin Human 25% (12.5 Gm/50 Ml)) 12.5 gm IV Q8H [facility] Last Admin: 10/27/16 12:01 Dose: Not Given Albuterol Sulfate (Albuterol 0.042% Inhal Nikky (1.25mg/3ml) Ud) 1.25 mg INH RQ6 [facility] Last Admin: 10/28/16 07:18 Dose: 1.25 mg Midazolam HCl 100 mg/ Dextrose 100 mls @ 2.04 mls/hr IV .Q24H [facility]; 0.02 MG/KG/ HR PRN Reason: Protocol Last Admin: 10/27/16 18:12 Dose: 0.04 mg/kg/hr, 4.08 mls/hr Folic Acid 1 mg/ Sodium (Chloride) 100.2 mls @ 60 mls/hr IV DAILY [facility] Last Admin: 10/27/16 09:41 Dose: 60 mls/hr Dexmedetomidine HCl 400 mcg/ (Sodium Chloride) 100 mls @ 5.1 mls/hr IV TITR PRN ; Protocol; 0.2 MCG/KG/HR PRN Reason: Agitation Last Admin: 10/28/16 05:00 Dose: 0.7 mcg/kg/hr, 17.85 mls/hr Norepinephrine Bitartrate 4 mg (/ Dextrose) 254 mls @ 15.24 mls/hr IV .[id number] PRN; Protocol; 4 MCG/MIN PRN Reason: TITRATE PER MD ORDER Last Admin: 10/27/16 12:03 Dose: 4 mcg/min, 15.24 mls/hr Ceftriaxone Sodium 2 gm/ (Sodium Chloride) 100 mls @ 100 mls/hr IVPB Q12H [facility] Last Admin: 10/27/16 22:29 Dose: 100 mls/hr Lactic Acid (Lac-Hydrin 12% Lotion (225 G)) 0 gm EXT BID [facility] Last Admin: 10/27/16 18:01 Dose: 1 applic Methylprednisolone (Solu-Medrol) 40 mg IV Q8H [facility] Last Admin: 10/28/16 03:00 Dose: 40 mg Midazolam HCl (Versed Inj) 2 mg IVP Q4H PRN PRN Reason: Agitation Last Admin: 10/25/16 08:45 Dose: 2 mg Nystatin (Nystop Topical Powder) 1 applic TOP BID [facility] Stop: 11/09/16 10:00 Last Admin: 10/27/16 18:01 Dose: 1 applic Pantoprazole Sodium (Protonix Inj) 40 mg IVP DAILY [facility] Last Admin: 10/27/16 09:41 Dose: 40 mg Thiamine HCl (Vitamin B1 Inj) 100 mg IV DAILY [facility] Last Admin: 10/27/16 09:40 Dose: 100 mg - Labs Labs: 10/28/16 06:37 10/28/16 06:37 PT 18.5 SECONDS (9.7-12.2) H 10/21/16 11:04 INR 1.6 10/21/16 11:04 APTT 33 SECONDS (21-34) 10/27/16 06:26
[2016-10-28] MEDS: Thiamine 100 mg/ml Inj IV SCH (11:13)
[2016-10-28] MEDS: Ammonium Lactate 12% Lotion (225 g) EXT SCH ×2 (11:14→17:50)
[2016-10-28] MEDS: cefTRIAXone 2 GM in Sodium Chloride 0.9% 100 ML IVPB SCH ×2 (11:16→22:30)
[2016-10-28] MEDS: Midazolam 50 mg/10 ml 100 MG in Dextrose 5% In Water 80 ML IV SCH (11:21)
--- NOTE | 2016-10-28 12:54 | CP.CCUPN ---
<Simran Wilde - Last Filed: 10/28/16 12:50> CCU Subjective - Physician Review Subjective (Free Text): Patient was seen and examined at bedside in the AM. Patient is intubated and sedated and therefore cannot answer ROS questions. 10/28/16 12:50 CCU Objective - Vital Signs / Intake & Output Intake and Output (Last 8hrs): Intake & Output 10/27/16 10/28/16 10/28/16 22:59 06:59 14:59 Intake Total 929.7 423.2 200 Output Total 190 105 Balance 739.7 318.2 200 Intake: IV 200 100 200 Intake, IV Amount 489.7 263.2 Right Proximal Port 35 40 Internal Jugular Right jugular TLC distal 311.5 80 port Right jugular TLC medial 143.2 143.2 port Tube Feeding 240 60 Output: Urine 190 105 Urethral (Walters) 190 105 - Physical Exam Head: Positive for: Atraumatic, Normocephalic Mouth: Positive for: Dry Respiratory/Chest: Positive for: Decreased Breath Sounds, Other (intubated ) Cardiovascular: Positive for: Normal S1, S2, Tachycardic Abdomen: Positive for: Distention, Normal Bowel Sounds Genitourinary Male: Positive for: Other (walters in place) Upper Extremity: Negative for: Edema Lower Extremity: Negative for: Edema Neurological: Negative for: GCS=15, Speech Normal (patient is intubated and sedated ) Skin: Positive for: Rashes (scrotal rash ), Other (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, bilateral upper extremities, and in gluteal fold.) Psychiatric: Negative for: Alert (patient is sedated ) - Medications Active Medications: Active Medications Generic Name Dose Route Start Last Admin Trade Name Freq PRN Reason Stop Dose Admin Acetaminophen 650 mg 10/25/16 11:56 10/25/16 12:15 Tylenol 650mg/20.3ml Solution Ud PO 650 mg Q6 PRN Administration Temperature Albumin Human 12.5 gm 10/26/16 18:45 10/27/16 12:01 Albumin Human 25% (12.5 Gm/50 Ml) IV Not Given Q8H MIRA Albuterol Sulfate 1.25 mg 10/22/16 14:00 10/28/16 07:18 Albuterol 0.042% Inhal Nikky (1.25mg/3ml) Ud INH 1.25 mg RQ6 MIRA Administration Midazolam HCl 100 mg/ Dextrose 100 mls @ 2.04 mls/hr 10/25/16 09:00 10/28/16 11:21 IV 0.04 mg/kg/hr .Q24H MIRA 4.08 mls/hr Protocol Administration 0.02 MG/KG/HR Folic Acid 1 mg/ Sodium 100.2 mls @ 60 mls/hr 10/25/16 14:30 10/28/16 11:09 Chloride IV 60 mls/hr DAILY MIRA Administration Dexmedetomidine HCl 400 mcg/ 100 mls @ 5.1 mls/hr 10/26/16 01:30 10/28/16 11: 10 Sodium Chloride IV 0.7 mcg/kg/hr TITR PRN 17.85 mls/hr Agitation Administration Protocol 0.2 MCG/KG/HR Norepinephrine Bitartrate 4 mg 254 mls @ 15.24 mls/hr 10/26/16 18:39 12:03 / Dextrose IV 4 mcg/min .[id number] PRN 15.24 mls/hr TITRATE PER MD ORDER Administration Protocol 4 MCG/MIN Ceftriaxone Sodium 2 gm/ 100 mls @ 100 mls/hr 10/27/16 22:00 10/28/16 11:16 Sodium Chloride IVPB 100 mls/hr Q12H MIRA Administration Lactic Acid 0 gm 10/22/16 13:00 10/28/16 11:14 Lac-Hydrin 12% Lotion (225 G) EXT 1 applic BID MIRA Administration Methylprednisolone 40 mg 10/26/16 18:41 10/28/16 11:09 Solu-Medrol IV 40 mg Q8H MIRA Administration Midazolam HCl 2 mg 10/22/16 19:22 10/25/16 08:45 Versed Inj IVP 2 mg Q4H PRN Administration Agitation Nystatin 1 applic 10/26/16 10:00 10/28/16 11:14 Nystop Topical Powder TOP 11/09/16 10:00 1 applic BID MIRA Administration Pantoprazole Sodium 40 mg 10/26/16 10:00 10/28/16 11:09 Protonix Inj IVP 40 mg DAILY MIRA Administration Thiamine HCl 100 mg 10/25/16 15:30 10/28/16 11:13 Vitamin B1 Inj IV 100 mg DAILY MIRA Administration - Patient Studies Lab Studies: Microbiology Studies 10/26/16 08:32 Gram Stain - Final Sputum Sputum Culture - Final No growth. 10/26/16 09:10 Blood Culture - Preliminary Blood NO GROWTH AFTER 48 HOURS 10/26/16 08:35 S.aureus & Coag-Neg Staph PNA FISH - Final Blood Blood Culture - Preliminary Coagulase Neg Staphylococcus Gram Stain - Final Lab Studies 10/28/16 10/28/16 10/28/16 Range/Units 06:53 06:37 06:37 WBC 13.8 H (4.8-10.8) K/uL RBC 3.02 L (4.40-5.90) Mil/uL Hgb 9.7 L (12.0-18.0) g/dL Hct 29.3 L (35.0-51.0) % MCV 97.1 H (80.0-94.0) fL MCH 32.1 H (27.0-31.0) pg MCHC 33.1 (33.0-37.0) g/dL RDW 15.0 H (11.5-14.5) % Plt Count 65 L D (130-400) K/uL MPV 10.9 (7.2-11.7) fL Neut % (Auto) 91.2 H (50.0-75.0) % Lymph % (Auto) 4.6 L (20.0-40.0) % [place] % (Auto) 4.0 (0.0-10.0) % Eos % (Auto) 0.0 (0.0-4.0) % Baso % (Auto) 0.2 (0.0-2.0) % Neut # 12.5 H (1.8-7.0) K/uL Lymph # 0.6 L (1.0-4.3) K/uL [place] # 0.5 (0.0-0.8) K/uL Eos # 0.0 (0.0-0.7) K/uL Baso # 0.0 (0.0-0.2) K/uL Neutrophils % (Manual) 84 H (50-75) % Band Neutrophils % 9 H (0-2) % Lymphocytes % (Manual) 3 L (20-40) % Reactive Lymphs % 2 H (0-0) % Monocytes % (Manual) 2 (0-10) % Nucleated RBC % 1 H (0-0) % Platelet Estimate Decreased L (NORMAL) Anisocytosis (manual) Slight Puncture Site pCO2 (35-45) mm/Hg pO2 (80-100) mm/Hg HCO3 (21-28) mmol/L ABG pH (7.35-7.45) ABG Total CO2 (22-28) mmol/L ABG O2 Saturation (95-98) % ABG Base Excess (-2.0-3.0) mmol/L ABG Hemoglobin (11.7-17.4) g/dL ABG Carboxyhemoglobin (0.5-1.5) % POC ABG HHb (Measured) (0.0-5.0) % ABG Methemoglobin (0.0-3.0) % Nicolas Test A-a O2 Difference mm/Hg Respiratory Index Hgb O2 Saturation (95.0-98.0) % Mechanical Rate FiO2 % Tidal Volume PEEP Crit Value Called To Crit Value Called By Crit Value Read Back Blood Gas Notified Time Sodium 148 (132-148) mmol/L Potassium 4.7 (3.6-5.2) mmol/L Chloride 105 (98-107) mmol/L Carbon Dioxide 22 (22-30) mmol/L Anion Gap 26 H (10-20) BUN 111 H* (9-20) mg/dL Creatinine 6.0 H (0.8-1.5) MG/DL Est GFR ( Amer) 12 Est GFR (Non-Af Amer) 10 POC Glucose (mg/dL) 245 H (65-110) mg/dL Random Glucose 211 H (75-110) mg/dL Calcium 7.0 L (8.6-10.4) mg/dl Phosphorus 9.0 H (2.5-4.5) mg/dL Magnesium 2.9 H (1.6-2.3) mg/dL Total Bilirubin 2.2 H (0.2-1.3) mg/dL AST 79 H (17-59) U/L ALT 55 (21-72) U/L Alkaline Phosphatase 119 (38-126) U/L Total Protein 6.9 (6.3-8.3) g/dL Albumin 2.6 L (3.5-5.0) g/dL Globulin 4.3 H (2.2-3.9) gm/dL Albumin/Globulin Ratio 0.6 L (1.0-2.1) Procalcitonin (0.19-0.49) NG/ML Blood Type Confirm 10/28/16 10/27/16 10/23/16 Range/Units 06:00 11:10 10:31 WBC (4.8-10.8) K/uL RBC (4.40-5.90) Mil/uL Hgb (12.0-18.0) g/dL Hct (35.0-51.0) % MCV (80.0-94.0) fL MCH (27.0-31.0) pg MCHC (33.0-37.0) g/dL RDW (11.5-14.5) % Plt Count (130-400) K/uL MPV (7.2-11.7) fL Neut % (Auto) (50.0-75.0) % Lymph % (Auto) (20.0-40.0) % [place] % (Auto) (0.0-10.0) % Eos % (Auto) (0.0-4.0) % Baso % (Auto) (0.0-2.0) % Neut # (1.8-7.0) K/uL Lymph # (1.0-4.3) K/uL [place] # (0.0-0.8) K/uL Eos # (0.0-0.7) K/uL Baso # (0.0-0.2) K/uL Neutrophils % (Manual) (50-75) % Band Neutrophils % (0-2) % Lymphocytes % (Manual) (20-40) % Reactive Lymphs % (0-0) % Monocytes % (Manual) (0-10) % Nucleated RBC % (0-0) % Platelet Estimate (NORMAL) Anisocytosis (manual) Puncture Site R rad pCO2 47 H (35-45) mm/Hg pO2 43 L* (80-100) mm/Hg HCO3 21.9 (21-28) mmol/L ABG pH 7.30 L (7.35-7.45) ABG Total CO2 24.5 (22-28) mmol/L ABG O2 Saturation 81.1 L (95-98) % ABG Base Excess -3.4 L (-2.0-3.0) mmol/L ABG Hemoglobin 10.5 L (11.7-17.4) g/dL ABG Carboxyhemoglobin 2.2 H (0.5-1.5) % POC ABG HHb (Measured) 18.3 H (0.0-5.0) % ABG Methemoglobin 0.8 (0.0-3.0) % Nicolas Test Pos A-a O2 Difference 611.0 mm/Hg Respiratory Index 14.2 Hgb O2 Saturation 78.6 L (95.0-98.0) % Mechanical Rate 24 FiO2 100.0 % Tidal Volume 500 PEEP 10 Crit Value Called To Swathi flores agriculture teacher Crit Value Called By Iqra mendez rt Crit Value Read Back Y Blood Gas Notified Time 625 Sodium (132-148) mmol/L Potassium (3.6-5.2) mmol/L Chloride (98-107) mmol/L Carbon Dioxide (22-30) mmol/L Anion Gap (10-20) BUN (9-20) mg/dL Creatinine (0.8-1.5) MG/DL Est GFR ( Amer) Est GFR (Non-Af Amer) POC Glucose (mg/dL) (65-110) mg/dL Random Glucose (75-110) mg/dL Calcium (8.6-10.4) mg/dl Phosphorus (2.5-4.5) mg/dL Magnesium (1.6-2.3) mg/dL Total Bilirubin (0.2-1.3) mg/dL AST (17-59) U/L ALT (21-72) U/L Alkaline Phosphatase (38-126) U/L Total Protein (6.3-8.3) g/dL Albumin (3.5-5.0) g/dL Globulin (2.2-3.9) gm/dL Albumin/Globulin Ratio (1.0-2.1) Procalcitonin 77.01 H (0.19-0.49) NG/ML Blood Type Confirm B POSITIVE Laboratory Results - last 24 hr 10/23/16 10/27/16 10/28/16 10:31 11:10 06:00 WBC RBC Hgb Hct MCV MCH MCHC RDW Plt Count MPV Neut % (Auto) Lymph % (Auto) [place] % (Auto) Eos % (Auto) Baso % (Auto) Neut # Lymph # [place] # Eos # Baso # Neutrophils % (Manual) Band Neutrophils % Lymphocytes % (Manual) Reactive Lymphs % Monocytes % (Manual) Nucleated RBC % Platelet Estimate Anisocytosis (manual) Puncture Site R rad pCO2 47 H pO2 43 L* HCO3 21.9 ABG pH 7.30 L ABG Total CO2 24.5 ABG O2 Saturation 81.1 L ABG Base Excess -3.4 L ABG Hemoglobin 10.5 L ABG Carboxyhemoglobin 2.2 H POC ABG HHb (Measured) 18.3 H ABG Methemoglobin 0.8 Nicolas Test Pos A-a O2 Difference 611.0 Respiratory Index 14.2 Hgb O2 Saturation 78.6 L Mechanical Rate 24 FiO2 100.0 Tidal Volume 500 PEEP 10 Crit Value Called To Swathi flores agriculture teacher Crit Value Called By Iqra mendez rt Crit Value Read Back Y Blood Gas Notified Time 625 Sodium Potassium Chloride Carbon Dioxide Anion Gap BUN Creatinine Est GFR ( Amer) Est GFR (Non-Af Amer) POC Glucose (mg/dL) Random Glucose Calcium Phosphorus Magnesium Total Bilirubin AST ALT Alkaline Phosphatase Total Protein Albumin Globulin Albumin/Globulin Ratio Procalcitonin 77.01 H Blood Type Confirm B POSITIVE 10/28/16 10/28/16 10/28/16 06:37 06:37 06:53 WBC 13.8 H RBC 3.02 L Hgb 9.7 L Hct 29.3 L MCV 97.1 H MCH 32.1 H MCHC 33.1 RDW 15.0 H Plt Count 65 L D MPV 10.9 Neut % (Auto) 91.2 H Lymph % (Auto) 4.[address] [place] % (Auto) 4.0 Eos % (Auto) 0.0 Baso % (Auto) 0.2 Neut # 12.5 H Lymph # 0.[address] [place] # 0.5 Eos # 0.0 Baso # 0.0 Neutrophils % (Manual) 84 H Band Neutrophils % 9 H Lymphocytes % (Manual) 3 L Reactive Lymphs % 2 H Monocytes % (Manual) 2 Nucleated RBC % 1 H Platelet Estimate Decreased L Anisocytosis (manual) Slight Puncture Site pCO2 pO2 HCO3 ABG pH ABG Total CO2 ABG O2 Saturation ABG Base Excess ABG Hemoglobin ABG Carboxyhemoglobin POC ABG HHb (Measured) ABG Methemoglobin Nicolas Test A-a O2 Difference Respiratory Index Hgb O2 Saturation Mechanical Rate FiO2 Tidal Volume PEEP Crit Value Called To Crit Value Called By Crit Value Read Back Blood Gas Notified Time Sodium 148 Potassium 4.7 Chloride 105 Carbon Dioxide 22 Anion Gap 26 H BUN 111 H* Creatinine 6.0 H Est GFR ( Amer) 12 Est GFR (Non-Af Amer) 10 POC Glucose (mg/dL) 245 H Random Glucose 211 H Calcium 7.0 L Phosphorus 9.0 H Magnesium 2.9 H Total Bilirubin 2.2 H AST 79 H ALT 55 Alkaline Phosphatase 119 Total Protein 6.9 Albumin 2.6 L Globulin 4.3 H Albumin/Globulin Ratio 0.6 L Procalcitonin Blood Type Confirm Review of Systems - Review of Systems Systems not reviewed;Unavailable: Intubated Assessment/Plan (1) Alcohol withdrawal Assessment and plan: 45 year old male who presented to the ED with complaint of worsening cough, abdominal pain for seven days. Neuro: - Chronic alcohol abuse - Sedated - Propofol - 0.5 Klonopin 0.5mg - 2mg Midazolam - Intubated - CT of head (10/22): no acute intracranial hemorrhage identified. - Neurology Consult: Dr. Pineda --> help appreciated Pulm: - Intubated - Hypoxic on vent - Right Central Line Placed - 10/22 - CT Angio (10/23): Limited examination for PE. - Chest X-ray worsening right sided lung infiltrate CV: - Monitor Heme: - Thrombocytopenia - Plateletphresis: 1 unit (10/23) - Plateletphresis: 2 units (10/28) - Platelets: 65 - Monitor Renal: - Walters placed 10/21 - Monitor - Dialysis started 10/23 - Right Femoral Hemodialysis Access placed 10/23 - permacath placement tomorrow 10/29 - Vascular Surgery Consult: Dr. De La Vega --> help appreciated - Nephrology Consult: Dr. Meriad --> help appreciated Endo: - Monitor - No acute issues GI: - Tube Feeding - NPO after midnight ID: - Sepsis due to Pneumonia - blood culture: Strep Pneumoniae - Zosyn stopped 10/22 - Ceftriaxone started 10/22 - Vanco started 10/22 - ID Consult: Dr. Bowers --> help appreciated - repeat cultures - Procal: 77.01 DVT proph - SCDs; VTE contraindication due to thrombocytopenia GI proph - Pepcid 20mg PO Daily Code status - full code Case discussed with Dr. Jason Wilde PGY-1 Current Visit: Yes Status: Acute Priority: High (2) Sepsis Current Visit: Yes Status: Acute Priority: High (3) Thrombocythemia Current Visit: Yes Status: Chronic (4) Transaminitis Current Visit: Yes Status: Acute <Osmani Gomez - Last Filed: 10/28/16 17:00> CCU Objective - Vital Signs / Intake & Output Vital Signs (Last 4 hours): Vital Signs Temp Pulse Resp BP 10/28/16 16:25 97.3 F L 64 16 115/79 10/28/16 15:55 97.2 F L 65 22 112/79 10/28/16 15:40 97.3 F L 63 22 107/73 10/28/16 15:25 97.2 F L 58 L 14 106/72 Intake and Output (Last 8hrs): Intake & Output 10/28/16 10/28/16 10/28/16 06:59 14:59 22:59 Intake Total 423.2 200 192 Output Total 105 Balance 318.2 200 192 Intake: IV 100 200 Intake, IV Amount 263.2 Right Proximal Port 40 Internal Jugular Right jugular TLC distal 80 port Right jugular TLC medial 143.2 port Tube Feeding 60 Blood Product 192 Apheresis Plts Acda Lr 192 1st Con Unit [id number] Output: Urine 105 Urethral (Walters) 105 - Medications Active Medications: Active Medications Generic Name Dose Route Start Last Admin Trade Name Freq PRN Reason Stop Dose Admin Acetaminophen 650 mg 10/25/16 11:56 10/25/16 12:15 Tylenol 650mg/20.3ml Solution Ud PO 650 mg Q6 PRN Administration Temperature Albumin Human 12.5 gm 10/26/16 18:45 10/27/16 12:01 Albumin Human 25% (12.5 Gm/50 Ml) IV Not Given Q8H MIRA Albuterol Sulfate 1.25 mg 10/22/16 14:00 10/28/16 13:18 Albuterol 0.042% Inhal Nikky (1.25mg/3ml) Ud INH 1.25 mg RQ6 MIRA Administration Midazolam HCl 100 mg/ Dextrose 100 mls @ 2.04 mls/hr 10/25/16 09:00 10/28/16 11:21 IV 0.04 mg/kg/hr .Q24H MIRA 4.08 mls/hr Protocol Administration 0.02 MG/KG/HR Folic Acid 1 mg/ Sodium 100.2 mls @ 60 mls/hr 10/25/16 14:30 10/28/16 11:09 Chloride IV 60 mls/hr DAILY MIRA Administration Dexmedetomidine HCl 400 mcg/ 100 mls @ 5.1 mls/hr 10/26/16 01:30 10/28/16 11: 10 Sodium Chloride IV 0.7 mcg/kg/hr TITR PRN 17.85 mls/hr Agitation Administration Protocol 0.2 MCG/KG/HR Norepinephrine Bitartrate 4 mg 254 mls @ 15.24 mls/hr 10/26/16 18:39 12:03 / Dextrose IV 4 mcg/min .[id number] PRN 15.24 mls/hr TITRATE PER MD ORDER Administration Protocol 4 MCG/MIN Ceftriaxone Sodium 2 gm/ 100 mls @ 100 mls/hr 10/27/16 22:00 10/28/16 11:16 Sodium Chloride IVPB 100 mls/hr Q12H MIRA Administration Lactic Acid 0 gm 10/22/16 13:00 10/28/16 11:14 Lac-Hydrin 12% Lotion (225 G) EXT 1 applic BID MIRA Administration Methylprednisolone 40 mg 10/26/16 18:41 10/28/16 11:09 Solu-Medrol IV 40 mg Q8H MIRA Administration Midazolam HCl 2 mg 10/22/16 19:22 10/25/16 08:45 Versed Inj IVP 2 mg Q4H PRN Administration Agitation Nystatin 1 applic 10/26/16 10:00 10/28/16 11:14 Nystop Topical Powder TOP 11/09/16 10:00 1 applic BID MIRA Administration Pantoprazole Sodium 40 mg 10/26/16 10:00 10/28/16 11:09 Protonix Inj IVP 40 mg DAILY MIRA Administration Sevelamer Carbonate 0.8 gm 10/28/16 18:00 Renvela NG TID MIRA Thiamine HCl 100 mg 10/25/16 15:30 10/28/16 11:13 Vitamin B1 Inj IV 100 mg DAILY MIRA Administration - Patient Studies Lab Studies: Microbiology Studies 10/26/16 08:32 Gram Stain - Final Sputum Sputum Culture - Final No growth. 10/26/16 09:10 Blood Culture - Preliminary Blood NO GROWTH AFTER 48 HOURS 10/26/16 08:35 S.aureus & Coag-Neg Staph PNA FISH - Final Blood Blood Culture - Preliminary Coagulase Neg Staphylococcus Gram Stain - Final Lab Studies 10/28/16 10/28/16 10/28/16 Range/Units 06:53 06:37 06:37 WBC 13.8 H (4.8-10.8) K/uL RBC 3.02 L (4.40-5.90) Mil/uL Hgb 9.7 L (12.0-18.0) g/dL Hct 29.3 L (35.0-51.0) % MCV 97.1 H (80.0-94.0) fL MCH 32.1 H (27.0-31.0) pg MCHC 33.1 (33.0-37.0) g/dL RDW 15.0 H (11.5-14.5) % Plt Count 65 L D (130-400) K/uL MPV 10.9 (7.2-11.7) fL Neut % (Auto) 91.2 H (50.0-75.0) % Lymph % (Auto) 4.6 L (20.0-40.0) % [place] % (Auto) 4.0 (0.0-10.0) % Eos % (Auto) 0.0 (0.0-4.0) % Baso % (Auto) 0.2 (0.0-2.0) % Neut # 12.5 H (1.8-7.0) K/uL Lymph # 0.6 L (1.0-4.3) K/uL [place] # 0.5 (0.0-0.8) K/uL Eos # 0.0 (0.0-0.7) K/uL Baso # 0.0 (0.0-0.2) K/uL Neutrophils % (Manual) 84 H (50-75) % Band Neutrophils % 9 H (0-2) % Lymphocytes % (Manual) 3 L (20-40) % Reactive Lymphs % 2 H (0-0) % Monocytes % (Manual) 2 (0-10) % Nucleated RBC % 1 H (0-0) % Platelet Estimate Decreased L (NORMAL) Anisocytosis (manual) Slight Puncture Site pCO2 (35-45) mm/Hg pO2 (80-100) mm/Hg HCO3 (21-28) mmol/L ABG pH (7.35-7.45) ABG Total CO2 (22-28) mmol/L ABG O2 Saturation (95-98) % ABG Base Excess (-2.0-3.0) mmol/L ABG Hemoglobin (11.7-17.4) g/dL ABG Carboxyhemoglobin (0.5-1.5) % POC ABG HHb (Measured) (0.0-5.0) % ABG Methemoglobin (0.0-3.0) % Nicolas Test A-a O2 Difference mm/Hg Respiratory Index Hgb O2 Saturation (95.0-98.0) % Mechanical Rate FiO2 % Tidal Volume PEEP Crit Value Called To Crit Value Called By Crit Value Read Back Blood Gas Notified Time Sodium 148 (132-148) mmol/L Potassium 4.7 (3.6-5.2) mmol/L Chloride 105 (98-107) mmol/L Carbon Dioxide 22 (22-30) mmol/L Anion Gap 26 H (10-20) BUN 111 H* (9-20) mg/dL Creatinine 6.0 H (0.8-1.5) MG/DL Est GFR ( Amer) 12 Est GFR (Non-Af Amer) 10 POC Glucose (mg/dL) 245 H (65-110) mg/dL Random Glucose 211 H (75-110) mg/dL Calcium 7.0 L (8.6-10.4) mg/dl Phosphorus 9.0 H (2.5-4.5) mg/dL Magnesium 2.9 H (1.6-2.3) mg/dL Total Bilirubin 2.2 H (0.2-1.3) mg/dL AST 79 H (17-59) U/L ALT 55 (21-72) U/L Alkaline Phosphatase 119 (38-126) U/L Total Protein 6.9 (6.3-8.3) g/dL Albumin 2.6 L (3.5-5.0) g/dL Globulin 4.3 H (2.2-3.9) gm/dL Albumin/Globulin Ratio 0.6 L (1.0-2.1) Blood Type Confirm 10/28/16 10/23/16 Range/Units 06:00 10:31 WBC (4.8-10.8) K/uL RBC (4.40-5.90) Mil/uL Hgb (12.0-18.0) g/dL Hct (35.0-51.0) % MCV (80.0-94.0) fL MCH (27.0-31.0) pg MCHC (33.0-37.0) g/dL RDW (11.5-14.5) % Plt Count (130-400) K/uL MPV (7.2-11.7) fL Neut % (Auto) (50.0-75.0) % Lymph % (Auto) (20.0-40.0) % [place] % (Auto) (0.0-10.0) % Eos % (Auto) (0.0-4.0) % Baso % (Auto) (0.0-2.0) % Neut # (1.8-7.0) K/uL Lymph # (1.0-4.3) K/uL [place] # (0.0-0.8) K/uL Eos # (0.0-0.7) K/uL Baso # (0.0-0.2) K/uL Neutrophils % (Manual) (50-75) % Band Neutrophils % (0-2) % Lymphocytes % (Manual) (20-40) % Reactive Lymphs % (0-0) % Monocytes % (Manual) (0-10) % Nucleated RBC % (0-0) % Platelet Estimate (NORMAL) Anisocytosis (manual) Puncture Site R rad pCO2 47 H (35-45) mm/Hg pO2 43 L* (80-100) mm/Hg HCO3 21.9 (21-28) mmol/L ABG pH 7.30 L (7.35-7.45) ABG Total CO2 24.5 (22-28) mmol/L ABG O2 Saturation 81.1 L (95-98) % ABG Base Excess -3.4 L (-2.0-3.0) mmol/L ABG Hemoglobin 10.5 L (11.7-17.4) g/dL ABG Carboxyhemoglobin 2.2 H (0.5-1.5) % POC ABG HHb (Measured) 18.3 H (0.0-5.0) % ABG Methemoglobin 0.8 (0.0-3.0) % Nicolas Test Pos A-a O2 Difference 611.0 mm/Hg Respiratory Index 14.2 Hgb O2 Saturation 78.6 L (95.0-98.0) % Mechanical Rate 24 FiO2 100.0 % Tidal Volume 500 PEEP 10 Crit Value Called To Swathi flores agriculture teacher Crit Value Called By Iqra mendez rt Crit Value Read Back Y Blood Gas Notified Time 625 Sodium (132-148) mmol/L Potassium (3.6-5.2) mmol/L Chloride (98-107) mmol/L Carbon Dioxide (22-30) mmol/L Anion Gap (10-20) BUN (9-20) mg/dL Creatinine (0.8-1.5) MG/DL Est GFR ( Amer) Est GFR (Non-Af Amer) POC Glucose (mg/dL) (65-110) mg/dL Random Glucose (75-110) mg/dL Calcium (8.6-10.4) mg/dl Phosphorus (2.5-4.5) mg/dL Magnesium (1.6-2.3) mg/dL Total Bilirubin (0.2-1.3) mg/dL AST (17-59) U/L ALT (21-72) U/L Alkaline Phosphatase (38-126) U/L Total Protein (6.3-8.3) g/dL Albumin (3.5-5.0) g/dL Globulin (2.2-3.9) gm/dL Albumin/Globulin Ratio (1.0-2.1) Blood Type Confirm B POSITIVE Laboratory Results - last 24 hr 10/23/16 10/28/16 10/28/16 10:31 06:00 06:37 WBC 13.8 H RBC 3.02 L Hgb 9.7 L Hct 29.3 L MCV 97.1 H MCH 32.1 H MCHC 33.1 RDW 15.0 H Plt Count 65 L D MPV 10.9 Neut % (Auto) 91.2 H Lymph % (Auto) 4.[address] [place] % (Auto) 4.0 Eos % (Auto) 0.0 Baso % (Auto) 0.2 Neut # 12.5 H Lymph # 0.[address] [place] # 0.5 Eos # 0.0 Baso # 0.0 Neutrophils % (Manual) 84 H Band Neutrophils % 9 H Lymphocytes % (Manual) 3 L Reactive Lymphs % 2 H Monocytes % (Manual) 2 Nucleated RBC % 1 H Platelet Estimate Decreased L Anisocytosis (manual) Slight Puncture Site R rad pCO2 47 H pO2 43 L* HCO3 21.9 ABG pH 7.30 L ABG Total CO2 24.5 ABG O2 Saturation 81.1 L ABG Base Excess -3.4 L ABG Hemoglobin 10.5 L ABG Carboxyhemoglobin 2.2 H POC ABG HHb (Measured) 18.3 H ABG Methemoglobin 0.8 Nicolas Test Pos A-a O2 Difference 611.0 Respiratory Index 14.2 Hgb O2 Saturation 78.6 L Mechanical Rate 24 FiO2 100.0 Tidal Volume 500 PEEP 10 Crit Value [facility] Crit Value Called By Iqra mendez rt Crit Value Read Back Y Blood Gas Notified Time 625 Sodium Potassium Chloride Carbon Dioxide Anion Gap BUN Creatinine Est GFR ( Amer) Est GFR (Non-Af Amer) POC Glucose (mg/dL) Random Glucose Calcium Phosphorus Magnesium Total Bilirubin AST ALT Alkaline Phosphatase Total Protein Albumin Globulin Albumin/Globulin Ratio Blood Type Confirm B POSITIVE 10/28/16 10/28/16 06:37 06:53 WBC RBC Hgb Hct MCV MCH MCHC RDW Plt Count MPV Neut % (Auto) Lymph % (Auto) [place] % (Auto) Eos % (Auto) Baso % (Auto) Neut # Lymph # [place] # Eos # Baso # Neutrophils % (Manual) Band Neutrophils % Lymphocytes % (Manual) Reactive Lymphs % Monocytes % (Manual) Nucleated RBC % Platelet Estimate Anisocytosis (manual) Puncture Site pCO2 pO2 HCO3 ABG pH ABG Total CO2 ABG O2 Saturation ABG Base Excess ABG Hemoglobin ABG Carboxyhemoglobin POC ABG HHb (Measured) ABG Methemoglobin Nicolas Test A-a O2 Difference Respiratory Index Hgb O2 Saturation Mechanical Rate FiO2 Tidal Volume PEEP Crit Value Called To Crit Value Called By Crit Value Read Back Blood Gas Notified Time Sodium 148 Potassium 4.7 Chloride 105 Carbon Dioxide 22 Anion Gap 26 H BUN 111 H* Creatinine 6.0 H Est GFR ( Amer) 12 Est GFR (Non-Af Amer) 10 POC Glucose (mg/dL) 245 H Random Glucose 211 H Calcium 7.0 L Phosphorus 9.0 H Magnesium 2.9 H Total Bilirubin 2.2 H AST 79 H ALT 55 Alkaline Phosphatase 119 Total Protein 6.9 Albumin 2.6 L Globulin 4.3 H Albumin/Globulin Ratio 0.6 L Blood Type Confirm Attending/Attestation - Attestation I have personally seen and examined this patient.: Yes I have fully participated in the care of the patient.: Yes I have reviewed all pertinent clinical information: Yes Notes (Text): 10/28/16 16:59 Patient seen and examined in the intensive care unit. Case discussed with house staff in the morning rounds. Remains intubated on ventilatory support requiring high FiO2 Slight improvement in chest x-ray after hemodialysis yesterday Permacath to be inserted tomorrow Transfuse platelets before procedure Continue antibiotics and present treatment
--- NOTE | 2016-10-28 16:15 | CP.PCM.PN ---
Subjective - Date & Time of Evaluation Date of Evaluation: 10/28/16 Time of Evaluation: 03:30 - Subjective Subjective: Intubated on ventilator support. Sedated Objective - Vital Signs/Intake and Output Vital Signs (last 24 hours): Temp Pulse Resp BP Pulse Ox 97.3 F L 63 22 107/73 99 10/28/16 15:40 10/28/16 15:40 10/28/16 15:40 10/28/16 15:40 10/28/16 05:43 Intake and Output: 10/28/16 10/28/16 06:59 18:59 Intake Total 1033.8 200 Output Total 165 Balance 868.8 200 - Medications Medications: Current Medications Acetaminophen (Tylenol 650mg/20.3ml Solution Ud) 650 mg PO Q6 PRN PRN Reason: Temperature Last Admin: 10/25/16 12:15 Dose: 650 mg Albumin Human (Albumin Human 25% (12.5 Gm/50 Ml)) 12.5 gm IV Q8H [facility] Last Admin: 10/27/16 12:01 Dose: Not Given Albuterol Sulfate (Albuterol 0.042% Inhal Nikky (1.25mg/3ml) Ud) 1.25 mg INH RQ6 [facility] Last Admin: 10/28/16 13:18 Dose: 1.25 mg Midazolam HCl 100 mg/ Dextrose 100 mls @ 2.04 mls/hr IV .Q24H [facility]; 0.02 MG/KG/ HR PRN Reason: Protocol Last Admin: 10/28/16 11:21 Dose: 0.04 mg/kg/hr, 4.08 mls/hr Folic Acid 1 mg/ Sodium (Chloride) 100.2 mls @ 60 mls/hr IV DAILY [facility] Last Admin: 10/28/16 11:09 Dose: 60 mls/hr Dexmedetomidine HCl 400 mcg/ (Sodium Chloride) 100 mls @ 5.1 mls/hr IV TITR PRN ; Protocol; 0.2 MCG/KG/HR PRN Reason: Agitation Last Admin: 10/28/16 11:10 Dose: 0.7 mcg/kg/hr, 17.85 mls/hr Norepinephrine Bitartrate 4 mg (/ Dextrose) 254 mls @ 15.24 mls/hr IV .[id number] PRN; Protocol; 4 MCG/MIN PRN Reason: TITRATE PER MD ORDER Last Admin: 10/27/16 12:03 Dose: 4 mcg/min, 15.24 mls/hr Ceftriaxone Sodium 2 gm/ (Sodium Chloride) 100 mls @ 100 mls/hr IVPB Q12H [facility] Last Admin: 10/28/16 11:16 Dose: 100 mls/hr Lactic Acid (Lac-Hydrin 12% Lotion (225 G)) 0 gm EXT BID [facility] Last Admin: 10/28/16 11:14 Dose: 1 applic Methylprednisolone (Solu-Medrol) 40 mg IV Q8H [facility] Last Admin: 10/28/16 11:09 Dose: 40 mg Midazolam HCl (Versed Inj) 2 mg IVP Q4H PRN PRN Reason: Agitation Last Admin: 10/25/16 08:45 Dose: 2 mg Nystatin (Nystop Topical Powder) 1 applic TOP BID [facility] Stop: 11/09/16 10:00 Last Admin: 10/28/16 11:14 Dose: 1 applic Pantoprazole Sodium (Protonix Inj) 40 mg IVP DAILY [facility] Last Admin: 10/28/16 11:09 Dose: 40 mg Thiamine HCl (Vitamin B1 Inj) 100 mg IV DAILY [facility] Last Admin: 10/28/16 11:13 Dose: 100 mg - Labs Labs: 10/28/16 06:37 10/28/16 06:37 PT 18.5 SECONDS (9.7-12.2) H 10/21/16 11:04 INR 1.6 10/21/16 11:04 APTT 33 SECONDS (21-34) 10/27/16 06:26 - Respiratory Exam Additional comments: Lungs clear - Cardiovascular Exam Cardiovascular Exam: REGULAR RHYTHM - Extremities Exam Additional comments: No edema Assessment and Plan - Assessment and Plan (Free Text) Assessment: RUPALI on HD suppor Respiratory failure, B?l pneumonia Sepsis Plan: Rising BUN/Creat No improvement in UO Extra dialysis is scheduled for today For dialysis catheter change tomorrow
[2016-10-28] MEDS: Sevelamer Carb 0.8 gm/Packet NG SCH (17:50)
--- NOTE | 2016-10-28 19:26 | CP.PCM.PN ---
Subjective - Date & Time of Evaluation Date of Evaluation: 10/28/16 Time of Evaluation: 08:00 - Subjective Subjective: cultures with coag neg staph 1/2 sets since repeated lines changed iv rx in progress poor prognosis -bilat pneumonia sepsis liver disease Objective - Vital Signs/Intake and Output Vital Signs (last 24 hours): Temp Pulse Resp BP Pulse Ox 97.3 F L 69 20 106/76 99 10/28/16 18:45 10/28/16 18:45 10/28/16 18:45 10/28/16 18:45 10/28/16 05:43 Intake and Output: 10/28/16 10/29/16 18:59 06:59 Intake Total 492 Balance 492 - Medications Medications: Current Medications Acetaminophen (Tylenol 650mg/20.3ml Solution Ud) 650 mg PO Q6 PRN PRN Reason: Temperature Last Admin: 10/25/16 12:15 Dose: 650 mg Albumin Human (Albumin Human 25% (12.5 Gm/50 Ml)) 12.5 gm IV Q8H [facility] Last Admin: 10/27/16 12:01 Dose: Not Given Albuterol Sulfate (Albuterol 0.042% Inhal Nikky (1.25mg/3ml) Ud) 1.25 mg INH RQ6 [facility] Last Admin: 10/28/16 13:18 Dose: 1.25 mg Midazolam HCl 100 mg/ Dextrose 100 mls @ 2.04 mls/hr IV .Q24H [facility]; 0.02 MG/KG/ HR PRN Reason: Protocol Last Admin: 10/28/16 11:21 Dose: 0.04 mg/kg/hr, 4.08 mls/hr Folic Acid 1 mg/ Sodium (Chloride) 100.2 mls @ 60 mls/hr IV DAILY [facility] Last Admin: 10/28/16 11:09 Dose: 60 mls/hr Dexmedetomidine HCl 400 mcg/ (Sodium Chloride) 100 mls @ 5.1 mls/hr IV TITR PRN ; Protocol; 0.2 MCG/KG/HR PRN Reason: Agitation Last Admin: 10/28/16 16:50 Dose: 0.7 mcg/kg/hr, 17.85 mls/hr Norepinephrine Bitartrate 4 mg (/ Dextrose) 254 mls @ 15.24 mls/hr IV .[id number] PRN; Protocol; 4 MCG/MIN PRN Reason: TITRATE PER MD ORDER Last Admin: 10/27/16 12:03 Dose: 4 mcg/min, 15.24 mls/hr Ceftriaxone Sodium 2 gm/ (Sodium Chloride) 100 mls @ 100 mls/hr IVPB Q12H [facility] Last Admin: 10/28/16 11:16 Dose: 100 mls/hr Lactic Acid (Lac-Hydrin 12% Lotion (225 G)) 0 gm EXT BID [facility] Last Admin: 10/28/16 17:50 Dose: 1 applic Methylprednisolone (Solu-Medrol) 40 mg IV Q8H [facility] Last Admin: 10/28/16 17:54 Dose: 40 mg Midazolam HCl (Versed Inj) 2 mg IVP Q4H PRN PRN Reason: Agitation Last Admin: 10/25/16 08:45 Dose: 2 mg Nystatin (Nystop Topical Powder) 1 applic TOP BID [facility] Stop: 11/09/16 10:00 Last Admin: 10/28/16 17:50 Dose: 1 applic Pantoprazole Sodium (Protonix Inj) 40 mg IVP DAILY [facility] Last Admin: 10/28/16 11:09 Dose: 40 mg Sevelamer Carbonate (Renvela) 0.8 gm NG TID [facility] Last Admin: 10/28/16 17:50 Dose: Not Given Thiamine HCl (Vitamin B1 Inj) 100 mg IV DAILY [facility] Last Admin: 10/28/16 11:13 Dose: 100 mg - Labs Labs: 10/28/16 06:37 10/28/16 06:37 PT 18.5 SECONDS (9.7-12.2) H 10/21/16 11:04 INR 1.6 10/21/16 11:04 APTT 33 SECONDS (21-34) 10/27/16 06:26 Assessment and Plan (1) Seizure disorder Status: Acute (2) Seizure disorder Status: Acute (3) Sepsis Status: Acute (4) Sepsis Status: Acute (5) Alcohol withdrawal Status: Acute (6) Hypoxemia Status: Acute (7) Pneumonia Status: Acute (8) Respiratory distress Status: Acute (9) Psoriasis Status: Acute
[2016-10-28] MEDS ORDERED: Gentamicin 80 mg in 0.9% NS 80 MG/100 ML BAG IVPB ONE (19:30)
[2016-10-28] MEDS ORDERED: Albumin Human 25% (12.5 gm/50 ml) IV ONE ×2 (19:45→20:10)
[2016-10-29] MEDS: Albuterol 0.042% Inhal Sol (1.25 mg/3 mL) UD INH SCH ×4 (02:58→19:19)
[2016-10-29] MEDS: MethylPREDNISolone 40 mg Vial IV SCH ×3 (03:00→18:38)
[2016-10-29] MEDS: Dexmedetomidine Hydrochloride 400 MCG in Sodium Chloride 0.9% 96 ML IV PRN ×4 (04:31→22:47)
[2016-10-29 06:28] LABS: ABG ALLEN TEST POS; ABG MECHANICAL RATE 24; ARTERIAL BLOOD HGB O2 SAT 88.1 % (95.0-98.0); ATERIAL BLOOD GAS PEEP 10; CARBOXYHEMOGLOBIN 2.2 % (0.5-1.5); DRAW SITE R R; HHB 8.6 % (0.0-5.0); METHEMOGLOBIN 1.2 % (0.0-3.0)
[2016-10-29] MEDS: Midazolam 50 mg/10 ml 100 MG in Dextrose 5% In Water 80 ML IV SCH ×3 (06:30→22:06)
[2016-10-29 06:32] LABS: HEMATOCRIT 28.9 % (35.0-51.0); LYMPH # 0.4 K/uL (1.0-4.3); LYMPH % 2.4 % (20.0-40.0); MEAN CELL VOLUME 97.5 fL (80.0-94.0); MEAN CORPUSCULAR HGB CONC 33.9 g/dL (33.0-37.0); MEAN PLATELET VOLUME 10.3 fL (7.2-11.7); MONO # 0.5 K/uL (0.0-0.8); NRBC % 0.1 % (0.0-2.0); PLATELET COUNT 61 K/uL (130-400); WHITE BLOOD COUNT 15.5 K/uL (4.8-10.8)
[2016-10-29 06:45] LABS: POTASSIUM 4.2 mmol/L (3.6-5.2)
[2016-10-29 06:46] LABS: INR 1.6
[2016-10-29 06:47] LABS: BILIRUBIN,TOTAL 2.1 mg/dL (0.2-1.3)
[2016-10-29 06:48] LABS: ALB/GLOB RATIO 0.7 (1.0-2.1); CALCIUM 6.9 mg/dl (8.6-10.4); PHOSPHOROUS 9.4 mg/dL (2.5-4.5); TOTAL PROTEIN 6.6 g/dL (6.3-8.3)
[2016-10-29 06:49] LABS: MAGNESIUM 2.5 mg/dL (1.6-2.3)
--- NOTE | 2016-10-29 08:08 | RAD ---
Chest x-ray single frontal view History: Intubated. Comparison: 10/28/2016 Findings: New large left-sided pneumothorax. Diffuse confluent increased markings throughout the right lung suggestive for edema and or infiltrate. Endotracheal tube extending into the mid thoracic trachea. NG tube extending into the stomach. Right central venous catheter extending into the right SVC. Findings: New large left-sided pneumothorax. These critical findings were relayed to nurse Valadez at 8:01 a.m. on 10/29/2016.
[2016-10-29 08:13] LABS: METAMYELOCYTE 1 % (0-0); TOTAL CELLS COUNTED 100
[2016-10-29 08:26] LABS: NEUTROPHIL 88 % (50-75)
[2016-10-29] MEDS: cefTRIAXone 2 GM in Sodium Chloride 0.9% 100 ML IVPB SCH ×2 (09:29→21:45)
[2016-10-29] MEDS: Ammonium Lactate 12% Lotion (225 g) EXT SCH ×2 (09:39→18:39)
[2016-10-29] MEDS: Thiamine 100 mg/ml Inj IV SCH (09:51)
[2016-10-29] MEDS ORDERED: Propofol 10 mg/ml Inj (20 ML) IV ONE (10:53)
[2016-10-29] MEDS ORDERED: Propofol 10 mg/ml Inj (20 ML) ONE (10:56)
--- NOTE | 2016-10-29 11:29 | CP.PCM.PN ---
Subjective - Date & Time of Evaluation Date of Evaluation: 10/29/16 Time of Evaluation: 11:25 - Subjective Subjective: ntubated on ventilator support Objective - Vital Signs/Intake and Output Vital Signs (last 24 hours): Temp Pulse Resp BP Pulse Ox 98.2 F 78 23 133/84 89 L 10/29/16 04:00 10/29/16 06:01 10/29/16 06:01 10/29/16 06:02 10/29/16 06:01 Intake and Output: 10/29/16 10/29/16 06:59 18:59 Intake Total 1146.8 100 Output Total 360 Balance 786.8 100 - Medications Medications: Current Medications Acetaminophen (Tylenol 650mg/20.3ml Solution Ud) 650 mg PO Q6 PRN PRN Reason: Temperature Last Admin: 10/25/16 12:15 Dose: 650 mg Albumin Human (Albumin Human 25% (12.5 Gm/50 Ml)) 12.5 gm IV Q8H [facility] Last Admin: 10/27/16 12:01 Dose: Not Given Albuterol Sulfate (Albuterol 0.042% Inhal Nikky (1.25mg/3ml) Ud) 1.25 mg INH RQ6 [facility] Last Admin: 10/29/16 07:20 Dose: 1.25 mg Midazolam HCl 100 mg/ Dextrose 100 mls @ 2.04 mls/hr IV .Q24H [facility]; 0.02 MG/KG/ HR PRN Reason: Protocol Last Admin: 10/29/16 06:30 Dose: 0.06 mg/kg/hr, 6.12 mls/hr Folic Acid 1 mg/ Sodium (Chloride) 100.2 mls @ 60 mls/hr IV DAILY [facility] Last Admin: 10/28/16 11:09 Dose: 60 mls/hr Dexmedetomidine HCl 400 mcg/ (Sodium Chloride) 100 mls @ 5.1 mls/hr IV TITR PRN ; Protocol; 0.2 MCG/KG/HR PRN Reason: Agitation Last Admin: 10/29/16 09:27 Dose: 0.7 mcg/kg/hr, 17.85 mls/hr Norepinephrine Bitartrate 4 mg (/ Dextrose) 254 mls @ 15.24 mls/hr IV .[id number] PRN; Protocol; 4 MCG/MIN PRN Reason: TITRATE PER MD ORDER Last Admin: 10/27/16 12:03 Dose: 4 mcg/min, 15.24 mls/hr Ceftriaxone Sodium 2 gm/ (Sodium Chloride) 100 mls @ 100 mls/hr IVPB Q12H [facility] Last Admin: 10/29/16 09:29 Dose: 100 mls/hr Lactic Acid (Lac-Hydrin 12% Lotion (225 G)) 0 gm EXT BID [facility] Last Admin: 10/29/16 09:39 Dose: 1 applic Methylprednisolone (Solu-Medrol) 40 mg IV Q8H [facility] Last Admin: 10/29/16 09:50 Dose: 40 mg Midazolam HCl (Versed Inj) 2 mg IVP Q4H PRN PRN Reason: Agitation Last Admin: 10/25/16 08:45 Dose: 2 mg Nystatin (Nystop Topical Powder) 1 applic TOP BID [facility] Stop: 11/09/16 10:00 Last Admin: 10/29/16 09:39 Dose: 1 applic Pantoprazole Sodium (Protonix Inj) 40 mg IVP DAILY [facility] Last Admin: 10/29/16 09:51 Dose: 40 mg Sevelamer Carbonate (Renvela) 0.8 gm NG TID [facility] Last Admin: 10/28/16 17:50 Dose: Not Given Thiamine HCl (Vitamin B1 Inj) 100 mg IV DAILY [facility] Last Admin: 10/29/16 09:51 Dose: 100 mg - Labs Labs: 10/29/16 06:22 10/29/16 06:22 PT 17.7 SECONDS (9.7-12.2) H 10/29/16 06:22 INR 1.6 10/29/16 06:22 APTT 30 SECONDS (21-34) 10/29/16 06:22 - Respiratory Exam Additional comments: Lungs clear - Cardiovascular Exam Cardiovascular Exam: REGULAR RHYTHM Additional comments: sinus rythm 62/min - GI/Abdominal Exam GI & Abdominal Exam: Soft - Extremities Exam Additional comments: No edema Assessment and Plan - Assessment and Plan (Free Text) Assessment: RUPALI on HD support Respiratory failure, B/L pneumonia Lt Ptx Sepsis Alcoholim, liver cirrhosis, thrombocytopenia Plan: Continue dialysis support Rt femoral catheter in use for dialysis. Blood flows remain low
[2016-10-29] MEDS: Sevelamer Carb 0.8 gm/Packet NG SCH ×3 (12:10→18:39)
--- NOTE | 2016-10-29 12:51 | CP.PCM.PN ---
Subjective - Date & Time of Evaluation Date of Evaluation: 10/29/16 Time of Evaluation: 12:40 - Subjective Subjective: Hospitalist Progress Note (Patient was seen and examined at 12:40 PM 10/29/16) 45 year old male who presented to the ER here at [facility] on 10/21/16 itoxicated with complaints of cough and abdominal pain. He was found to be hypotensive, hopoxic, with RUL/RML Pneumonia. He eventually required intubation and ventilator support. He was also found to be in Acute Renal Failure and started receiving HD through Right Femoral Access on Wednesday10/23/16, 10/26, and today 10/27/16. He was for Right Perm Cath with Dr. De La Vega for 10/28/16 however as hist platelets declined, this was put on hold and patient will be transfused 2 bags of platelets as per ICU Team. He became hypotensive on 10/27/16 and therefore was started on Norepinephrine Drip, Albumin, and Solumedrol. Chest X Ray on 10/29/16 showed Left Pneumothorax and Workers Compensation Paralegal has placed a left sided chest tube with repeat Chest X Ray showing re- expansion of the Left Lung. His prognosis remains guarded. Patient is under sedation and intubated and therefore could not answer ROS questions. HEENT: NCA, Pupils are pinpoint/round/reactive to light, NO lymphadenopathy, NO JVD, NO thyromegaly, Nasal turbinates are nonerythematous/nonedematous/moist, Oral mucosa is dry. Cardio: NS1 and NS2, NO M/R/G (please note that this exam is limited by interference of diffuse course breath sounds) Resp: Course breath sounds diffusely GI: BSx4 are reduced in all 4 quadrants, Distention, Liver and Spleen could not be adequately palpated secondary to distention, Soft Ext: Pulses are strong and equal, Capillary Refill is 2 seconds, NO cyanosis, NO edema, Patches of Psoriasis on the bilateral elbows/bilateral anterior lower legs Neuro: exam not possible Skin: Bilateral Groin fungal rash Assessment and Plan (1) Alcohol withdrawal Assessment & Plan: Patient with history of DTs since his admission. Management in ICU. Patient is currently intubated and sedated. Status: Acute (2) Hypoxemia/Respiratory Distress Assessment & Plan: Patient is intubated and on ventilator support. Not a candidate for weaning at this time. Dexmedetomidine 50 ml/hr Midazolam 100 ml/hr Status: Acute (3). Left Pneumothorax Chest X Ray 10/27/16 shows dense confluent consolidative changes throughout both lungs with associated bilateral pleural effusions. Chest X Ray on 10/29/16 showed Left Pneumothorax and Workers Compensation Paralegal has placed a left sided chest tube with repeat Chest X Ray showing re-expansion of the Left Lung. (4)Sepsis Secondary to Pneumonia and Bacteremia Assessment & Plan: X-ray chest report reviewed 10/24/16 and 10/26/16. Progression of infiltrates throughout the right upper and lower lobe treated infiltrate changes are also seen in the left middle to left lower lung cameron. Bilateral effusions. Chest X Ray 10/27/16 shows dense confluent consolidative changes throughout both lungs with associated bilateral pleural effusions. Chest X Ray on 10/29/16 showed Left Pneumothorax and Workers Compensation Paralegal has placed a left sided chest tube with repeat Chest X Ray showing re-expansion of the Left Lung. CT Angio Chest 10/23/16 showed NO PE, extensive pulmonary consolidation bilateral lower lobes and RUL, patchy infiltrates NING and RML, bilateral pleural effusions, hepatic cirrhosis, and ascites. Patient has Strep pneumoniae bacteremia as per Blood Culture 10/21/16 and Coag Neg Staph (which may be a contaminant) on 1 Blood Cultures from 10/26/16 Ceftriaxone 2 gm IV 1x/day Vancomycin 1 gm IV x 1 dose given by ICU team 10/24/[address] Aleyda Bowers Status: Acute (5). Hypotension Albumin 12.5 gm IV Q8H Solumedrol 40 mg IV Q8H Norepinephrine Drip (6) Seizure disorder Assessment & Plan: Secondary to alcohol withdrawal. Patient is currently intubated and sedated. No seizures reported. Neurology Dr. Pineda Status: Acute (7) Thrombocytopenia Assessment & Plan: Likely Secondary to alcohol abuse. Pepcid was discontinued 10/26/16 as this can worsen thrombocytopenia and Protonix 40 mg IV 1x/day was ordered 10/26/16 Platelets today 10/28/16 are at 61 He received 1 bag of platelets 10/28/16 as per ICU Team Platelet 1 bag ordered for 9 PM 10/29/16 as this will by tonight Heparin Abs also ordered for 10/30/16 Status: Chronic (8) Psoriasis Status: Acute (9) Renal failure Assessment & Plan: Renal U/S 10/24/16 showed nonobstructing calculus upper/midpole Right Kidney and Abdominal Ascites Hepatitis Panel is negative Patient started on hemodialysis through Right Femoral Access which is suspected to not be working properly Right Perm Cath with Dr. De La Vega on hold for today considering the Left Pneumothorax Status: Acute (10). Anemia Likely Secondary to Chronic Alcohol Use and Renal Failure Stool Occult Blood 10/21/16 is negative HgB/Hct today 10/29/16 is stable at 9.8/28.9 Continue to monitor (11). Hypokalemia Resolved (12). Bilateral Groin Fungal Rash Nystatin Powder 2x/day for 2 weeks started on 10/26/16 (13). Prophylactic Measures Bilateral SCDs Protonix 40 mg IV 1x/day Jevity at 30 mL per hour via NGT NO anticoagulation considering the Anemia and Thrombocytopenia Von Burkett D.O. Objective - Vital Signs/Intake and Output Vital Signs (last 24 hours): Temp Pulse Resp BP Pulse Ox 98.2 F 78 23 133/84 89 L 10/29/16 04:00 10/29/16 06:01 10/29/16 06:01 10/29/16 06:02 10/29/16 06:01 Intake and Output: 10/29/16 10/29/16 06:59 18:59 Intake Total 1146.8 100 Output Total 360 Balance 786.8 100 - Medications Medications: Current Medications Acetaminophen (Tylenol 650mg/20.3ml Solution Ud) 650 mg PO Q6 PRN PRN Reason: Temperature Last Admin: 10/25/16 12:15 Dose: 650 mg Albumin Human (Albumin Human 25% (12.5 Gm/50 Ml)) 12.5 gm IV Q8H [facility] Last Admin: 10/27/16 12:01 Dose: Not Given Albuterol Sulfate (Albuterol 0.042% Inhal Nikky (1.25mg/3ml) Ud) 1.25 mg INH RQ6 [facility] Last Admin: 10/29/16 07:20 Dose: 1.25 mg Heparin Sodium (Porcine) (Heparin) 5,000 units SC Q12 [facility] Midazolam HCl 100 mg/ Dextrose 100 mls @ 2.04 mls/hr IV .Q24H [facility]; 0.02 MG/KG/ HR PRN Reason: Protocol Last Admin: 10/29/16 06:30 Dose: 0.06 mg/kg/hr, 6.12 mls/hr Folic Acid 1 mg/ Sodium (Chloride) 100.2 mls @ 60 mls/hr IV DAILY [facility] Last Admin: 10/29/16 11:58 Dose: 60 mls/hr Dexmedetomidine HCl 400 mcg/ (Sodium Chloride) 100 mls @ 5.1 mls/hr IV TITR PRN ; Protocol; 0.2 MCG/KG/HR PRN Reason: Agitation Last Admin: 10/29/16 09:27 Dose: 0.7 mcg/kg/hr, 17.85 mls/hr Norepinephrine Bitartrate 4 mg (/ Dextrose) 254 mls @ 15.24 mls/hr IV .[id number] PRN; Protocol; 4 MCG/MIN PRN Reason: TITRATE PER MD ORDER Last Admin: 10/27/16 12:03 Dose: 4 mcg/min, 15.24 mls/hr Ceftriaxone Sodium 2 gm/ (Sodium Chloride) 100 mls @ 100 mls/hr IVPB Q12H [facility] Last Admin: 10/29/16 09:29 Dose: 100 mls/hr Lactic Acid (Lac-Hydrin 12% Lotion (225 G)) 0 gm EXT BID [facility] Last Admin: 10/29/16 09:39 Dose: 1 applic Methylprednisolone (Solu-Medrol) 40 mg IV Q8H [facility] Last Admin: 10/29/16 09:50 Dose: 40 mg Midazolam HCl (Versed Inj) 2 mg IVP Q4H PRN PRN Reason: Agitation Last Admin: 10/25/16 08:45 Dose: 2 mg Nystatin (Nystop Topical Powder) 1 applic TOP BID [facility] Stop: 11/09/16 10:00 Last Admin: 10/29/16 09:39 Dose: 1 applic Pantoprazole Sodium (Protonix Inj) 40 mg IVP DAILY [facility] Last Admin: 10/29/16 09:51 Dose: 40 mg Sevelamer Carbonate (Renvela) 0.8 gm NG TID [facility] Last Admin: 10/29/16 12:10 Dose: Not Given Thiamine HCl (Vitamin B1 Inj) 100 mg IV DAILY [facility] Last Admin: 10/29/16 09:51 Dose: 100 mg - Labs Labs: 10/29/16 06:22 10/29/16 06:22 PT 17.7 SECONDS (9.7-12.2) H 10/29/16 06:22 INR 1.6 10/29/16 06:22 APTT 30 SECONDS (21-34) 10/29/16 06:22
--- NOTE | 2016-10-29 13:03 | RAD ---
HISTORY: s/p chest tube COMPARISON: 10/29/2016 at 7:03 a.m. FINDINGS: Endotracheal tube terminates 4 cm proximal to the sarah. The nasogastric tube terminates in the stomach. The right IJV line terminates in the SVC. LUNGS: There is low lung volume on the right and crowding of lung markings. PLEURA: There is interval placement of a left chest tube. There is redemonstration of a moderate left pneumothorax slightly decreased since the prior examination without significant midline shift to the right. CARDIOVASCULAR: Normal. OSSEOUS STRUCTURES: No significant abnormalities. VISUALIZED UPPER ABDOMEN: Normal. OTHER FINDINGS: None. IMPRESSION: Interval placement of left chest tube. Redemonstration of moderate left pneumothorax slightly decreased in size since the prior examination. No evidence of midline shift to the right. Persistent increased lung markings on the right which may represent interstitial pneumonitis or edema.
--- NOTE | 2016-10-29 13:29 | CP.PCM.PN ---
Subjective - Date & Time of Evaluation Date of Evaluation: 10/29/16 Time of Evaluation: 06:50 - Subjective Subjective: Patient seen and examined at the bedside in the ICU. Patient developed a left pneumothorax overnight and the ICU attending is planning to insert a pig-tail catheter. Objective - Vital Signs/Intake and Output Vital Signs (last 24 hours): Temp Pulse Resp BP Pulse Ox 98.2 F 78 23 133/84 89 L 10/29/16 04:00 10/29/16 06:01 10/29/16 06:01 10/29/16 06:02 10/29/16 06:01 Intake and Output: 10/29/16 10/29/16 06:59 18:59 Intake Total 1146.8 100 Output Total 360 Balance 786.8 100 - Medications Medications: Current Medications Acetaminophen (Tylenol 650mg/20.3ml Solution Ud) 650 mg PO Q6 PRN PRN Reason: Temperature Last Admin: 10/25/16 12:15 Dose: 650 mg Albumin Human (Albumin Human 25% (12.5 Gm/50 Ml)) 12.5 gm IV Q8H [facility] Last Admin: 10/27/16 12:01 Dose: Not Given Albuterol Sulfate (Albuterol 0.042% Inhal Nikky (1.25mg/3ml) Ud) 1.25 mg INH RQ6 [facility] Last Admin: 10/29/16 07:20 Dose: 1.25 mg Midazolam HCl 100 mg/ Dextrose 100 mls @ 2.04 mls/hr IV .Q24H [facility]; 0.02 MG/KG/ HR PRN Reason: Protocol Last Admin: 10/29/16 06:30 Dose: 0.06 mg/kg/hr, 6.12 mls/hr Folic Acid 1 mg/ Sodium (Chloride) 100.2 mls @ 60 mls/hr IV DAILY [facility] Last Admin: 10/29/16 11:58 Dose: 60 mls/hr Dexmedetomidine HCl 400 mcg/ (Sodium Chloride) 100 mls @ 5.1 mls/hr IV TITR PRN ; Protocol; 0.2 MCG/KG/HR PRN Reason: Agitation Last Admin: 10/29/16 09:27 Dose: 0.7 mcg/kg/hr, 17.85 mls/hr Norepinephrine Bitartrate 4 mg (/ Dextrose) 254 mls @ 15.24 mls/hr IV .[id number] PRN; Protocol; 4 MCG/MIN PRN Reason: TITRATE PER MD ORDER Last Admin: 10/27/16 12:03 Dose: 4 mcg/min, 15.24 mls/hr Ceftriaxone Sodium 2 gm/ (Sodium Chloride) 100 mls @ 100 mls/hr IVPB Q12H [facility] Last Admin: 10/29/16 09:29 Dose: 100 mls/hr Lactic Acid (Lac-Hydrin 12% Lotion (225 G)) 0 gm EXT BID [facility] Last Admin: 10/29/16 09:39 Dose: 1 applic Methylprednisolone (Solu-Medrol) 40 mg IV Q8H [facility] Last Admin: 10/29/16 09:50 Dose: 40 mg Midazolam HCl (Versed Inj) 2 mg IVP Q4H PRN PRN Reason: Agitation Last Admin: 10/25/16 08:45 Dose: 2 mg Nystatin (Nystop Topical Powder) 1 applic TOP BID [facility] Stop: 11/09/16 10:00 Last Admin: 10/29/16 09:39 Dose: 1 applic Pantoprazole Sodium (Protonix Inj) 40 mg IVP DAILY [facility] Last Admin: 10/29/16 09:51 Dose: 40 mg Sevelamer Carbonate (Renvela) 0.8 gm NG TID [facility] Last Admin: 10/29/16 12:10 Dose: Not Given Thiamine HCl (Vitamin B1 Inj) 100 mg IV DAILY [facility] Last Admin: 10/29/16 09:51 Dose: 100 mg - Labs Labs: 10/29/16 06:22 10/29/16 06:22 PT 17.7 SECONDS (9.7-12.2) H 10/29/16 06:22 INR 1.6 10/29/16 06:22 APTT 30 SECONDS (21-34) 10/29/16 06:22 - Constitutional Appears: Unkempt - Head Exam Head Exam: ATRAUMATIC, NORMOCEPHALIC - Eye Exam Eye Exam: Normal appearance - ENT Exam Additional comments: ETT in place - Respiratory Exam Additional comments: Patient mechanically ventillated - Cardiovascular Exam Cardiovascular Exam: RRR - Neurological Exam Neurological Exam: Altered (sedated, no response to tactile or verbal stimuli) - Psychiatric Exam Additional comments: sedated - Skin Skin Exam: Dry, Normal Color, Warm Assessment and Plan - Assessment and Plan (Free Text) Assessment: 45M w/ESRD requiring dialysis with Right femoral HD catheter in place, need for more permanent HD access Platelet count of 61 Pneumothorax on left developed overnight Plan: -Postpone permacath placement due to pulmonary instability with the pneumothorax -F/U ICU's recs regarding eventual permacath placement -Continue management per primary. Discussed with Dr. Ceferino Anthony, PGY2
--- NOTE | 2016-10-29 13:52 | RAD ---
HISTORY: Left Pneumothorax COMPARISON: Chest x-ray performed 10/29/16 TECHNIQUE: Chest, one view. FINDINGS: Distal tip of an endotracheal tube terminates approximately 5.1 cm above the sarah. Nasogastric tube extends expected location of the stomach. Right-sided central venous catheter extends to the SVC. Left-sided chest tube. Examination limited by habitus. LUNGS: Small left apical pneumothorax now measures approximately 1.5 cm in maximum dimension from the pleural edge. Patchy airspace opacity throughout the left bonita thorax compatible with infection or edema. Patchy opacities noted within the medial right bonita thorax. Please note that chest x-ray has limited sensitivity for the detection of pulmonary masses. CARDIOVASCULAR: Borderline cardiomegaly. OSSEOUS STRUCTURES: Degenerative changes. VISUALIZED UPPER ABDOMEN: Unremarkable. OTHER FINDINGS: None. IMPRESSION: Distal tip of an endotracheal tube terminates approximately 5.1 cm above the sarah. Nasogastric tube extends expected location of the stomach. Right-sided central venous catheter extends to the SVC. Left-sided chest tube. Small left apical pneumothorax. Patchy airspace opacity throughout the left bonita thorax compatible with infection or edema. Patchy opacities noted within the medial right bonita thorax. Cardiomegaly.
--- NOTE | 2016-10-29 17:15 | CP.CCUPN ---
<Simran Wilde - Last Filed: 10/29/16 17:03> CCU Subjective - Physician Review Subjective (Free Text): Patient was seen and examined at bedside in the AM. Patient is intubated and sedated and therefore cannot answer ROS questions. 10/29/16 17:03 CCU Objective - Vital Signs / Intake & Output Vital Signs (Last 4 hours): Vital Signs Temp Pulse Pulse Resp BP BP Pulse Ox 10/29/16 16:40 72 24 101/65 91 L 10/29/16 16:10 65 23 102/67 92 L 10/29/16 15:40 65 26 H 101/64 91 L 10/29/16 15:14 74 24 107/68 90 L 10/29/16 15:10 90 25 H 107/70 92 L 10/29/16 14:50 91 H 22 113/68 92 L 10/29/16 14:35 98.6 F 78 78 22 112/73 119/74 91 L 10/29/16 14:02 78 27 H 128/77 89 L Intake and Output (Last 8hrs): Intake & Output 10/29/16 10/29/16 10/29/16 06:59 14:59 22:59 Intake Total 835.2 456 107 Output Total 240 525 65 Balance 595.2 -69 42 Intake: IV 300 100 100 Intake, IV Amount 475.2 356 7 Right Proximal Port 52 56 7 Internal Jugular Right jugular TLC distal 280 300 port Right jugular TLC medial 143.2 port Tube Feeding 60 Output: Urine 240 525 65 Urethral (Walters) 240 525 65 Other: # Bowel Movements 1 - Physical Exam Head: Positive for: Atraumatic, Normocephalic Mouth: Positive for: Dry Respiratory/Chest: Positive for: Respiratory Distress, Decreased Breath Sounds, Other (intubated ) Cardiovascular: Positive for: Normal S1, S2, Tachycardic Abdomen: Positive for: Distention, Normal Bowel Sounds Genitourinary Male: Positive for: Other (walters in place) Upper Extremity: Negative for: Edema Lower Extremity: Negative for: Edema Neurological: Negative for: GCS=15, Speech Normal (patient is intubated and sedated ) Skin: Positive for: Rashes (scrotal rash ), Other (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, bilateral upper extremities, and in gluteal fold.) Psychiatric: Negative for: Alert (patient is sedated and intubated ) - Medications Active Medications: Active Medications Generic Name Dose Route Start Last Admin Trade Name Freq PRN Reason Stop Dose Admin Acetaminophen 650 mg 10/25/16 11:56 10/25/16 12:15 Tylenol 650mg/20.3ml Solution Ud PO 650 mg Q6 PRN Administration Temperature Albumin Human 12.5 gm 10/26/16 18:45 10/27/16 12:01 Albumin Human 25% (12.5 Gm/50 Ml) IV Not Given Q8H MIRA Albuterol Sulfate 1.25 mg 10/22/16 14:00 10/29/16 13:35 Albuterol 0.042% Inhal Nikky (1.25mg/3ml) Ud INH 1.25 mg RQ6 MIRA Administration Midazolam HCl 100 mg/ Dextrose 100 mls @ 2.04 mls/hr 10/25/16 09:00 10/29/16 06:30 IV 0.06 mg/kg/hr .Q24H MIAR 6.12 mls/hr Protocol Administration 0.02 MG/KG/HR Folic Acid 1 mg/ Sodium 100.2 mls @ 60 mls/hr 10/25/16 14:30 10/29/16 11:58 Chloride IV 60 mls/hr DAILY MIRA Administration Dexmedetomidine HCl 400 mcg/ 100 mls @ 5.1 mls/hr 10/26/16 01:30 10/29/16 15: 10 Sodium Chloride IV 0.7 mcg/kg/hr TITR PRN 17.85 mls/hr Agitation Administration Protocol 0.2 MCG/KG/HR Norepinephrine Bitartrate 4 mg 254 mls @ 15.24 mls/hr 10/26/16 18:39 12:03 / Dextrose IV 4 mcg/min .[id number] PRN 15.24 mls/hr TITRATE PER MD ORDER Administration Protocol 4 MCG/MIN Ceftriaxone Sodium 2 gm/ 100 mls @ 100 mls/hr 10/27/16 22:00 10/29/16 09:29 Sodium Chloride IVPB 100 mls/hr Q12H MIRA Administration Lactic Acid 0 gm 10/22/16 13:00 10/29/16 09:39 Lac-Hydrin 12% Lotion (225 G) EXT 1 applic BID MIRA Administration Methylprednisolone 40 mg 10/26/16 18:41 10/29/16 09:50 Solu-Medrol IV 40 mg Q8H MIRA Administration Midazolam HCl 2 mg 10/22/16 19:22 10/25/16 08:45 Versed Inj IVP 2 mg Q4H PRN Administration Agitation Nystatin 1 applic 10/26/16 10:00 10/29/16 09:39 Nystop Topical Powder TOP 11/09/16 10:00 1 applic BID MIRA Administration Pantoprazole Sodium 40 mg 10/26/16 10:00 10/29/16 09:51 Protonix Inj IVP 40 mg DAILY MIRA Administration Sevelamer Carbonate 0.8 gm 10/28/16 18:00 10/29/16 15:09 Renvela NG Not Given TID MIRA Thiamine HCl 100 mg 10/25/16 15:30 10/29/16 09:51 Vitamin B1 Inj IV 100 mg DAILY MIRA Administration - Patient Studies Lab Studies: Microbiology Studies 10/26/16 09:10 Blood Culture - Preliminary Blood NO GROWTH AFTER 3 DAYS 10/26/16 08:35 S.aureus & Coag-Neg Staph PNA FISH - Final Blood Blood Culture - Final Coagulase Neg Staphylococcus Gram Stain - Final Lab Studies 10/29/16 10/29/16 10/29/16 Range/Units 06:22 06:22 06:22 WBC 15.5 H (4.8-10.8) K/uL RBC 2.97 L (4.40-5.90) Mil/uL Hgb 9.8 L (12.0-18.0) g/dL Hct 28.9 L (35.0-51.0) % MCV 97.5 H (80.0-94.0) fL MCH 33.0 H (27.0-31.0) pg MCHC 33.9 (33.0-37.0) g/dL RDW 15.0 H (11.5-14.5) % Plt Count 61 L (130-400) K/uL MPV 10.3 (7.2-11.7) fL Neut % (Auto) 94.6 H (50.0-75.0) % Lymph % (Auto) 2.4 L (20.0-40.0) % Furn[place] % (Auto) 3.0 (0.0-10.0) % Eos % (Auto) 0.0 (0.0-4.0) % Baso % (Auto) 0.0 (0.0-2.0) % Neut # 14.7 H (1.8-7.0) K/uL Lymph # 0.4 L (1.0-4.3) K/uL Furnas # 0.5 (0.0-0.8) K/uL Eos # 0.0 (0.0-0.7) K/uL Baso # 0.0 (0.0-0.2) K/uL Neutrophils % (Manual) 88 H (50-75) % Band Neutrophils % 8 H (0-2) % Lymphocytes % (Manual) TEST NOT PERFORMED Monocytes % (Manual) 3 (0-10) % Metamyelocytes % 1 H (0-0) % Platelet Estimate Decreased L (NORMAL) Anisocytosis (manual) Slight PT 17.7 H (9.7-12.2) SECONDS INR 1.6 APTT 30 (21-34) SECONDS Puncture Site pCO2 (35-45) mm/Hg pO2 (80-100) mm/Hg HCO3 (21-28) mmol/L ABG pH (7.35-7.45) ABG Total CO2 (22-28) mmol/L ABG O2 Saturation (95-98) % ABG Base Excess (-2.0-3.0) mmol/L ABG Hemoglobin (11.7-17.4) g/dL ABG Carboxyhemoglobin (0.5-1.5) % POC ABG HHb (Measured) (0.0-5.0) % ABG Methemoglobin (0.0-3.0) % Nicolas Test A-a O2 Difference mm/Hg Respiratory Index Hgb O2 Saturation (95.0-98.0) % Mechanical Rate FiO2 % Tidal Volume PEEP Sodium 147 (132-148) mmol/L Potassium 4.2 (3.6-5.2) mmol/L Chloride 103 (98-107) mmol/L Carbon Dioxide 23 (22-30) mmol/L Anion Gap 26 H (10-20) BUN 99 H (9-20) mg/dL Creatinine 4.8 H (0.8-1.5) MG/DL Est GFR ( Amer) 16 Est GFR (Non-Af Amer) 13 Random Glucose 189 H (75-110) mg/dL Calcium 6.9 L (8.6-10.4) mg/dl Phosphorus 9.4 H (2.5-4.5) mg/dL Magnesium 2.5 H (1.6-2.3) mg/dL Total Bilirubin 2.1 H (0.2-1.3) mg/dL AST 78 H (17-59) U/L ALT 67 (21-72) U/L Alkaline Phosphatase 110 (38-126) U/L Total Protein 6.6 (6.3-8.3) g/dL Albumin 2.7 L (3.5-5.0) g/dL Globulin 3.9 (2.2-3.9) gm/dL Albumin/Globulin Ratio 0.7 L (1.0-2.1) 10/29/16 Range/Units 05:24 WBC (4.8-10.8) K/uL RBC (4.40-5.90) Mil/uL Hgb (12.0-18.0) g/dL Hct (35.0-51.0) % MCV (80.0-94.0) fL MCH (27.0-31.0) pg MCHC (33.0-37.0) g/dL RDW (11.5-14.5) % Plt Count (130-400) K/uL MPV (7.2-11.7) fL Neut % (Auto) (50.0-75.0) % Lymph % (Auto) (20.0-40.0) % Furnas % (Auto) (0.0-10.0) % Eos % (Auto) (0.0-4.0) % Baso % (Auto) (0.0-2.0) % Neut # (1.8-7.0) K/uL Lymph # (1.0-4.3) K/uL Furnas # (0.0-0.8) K/uL Eos # (0.0-0.7) K/uL Baso # (0.0-0.2) K/uL Neutrophils % (Manual) (50-75) % Band Neutrophils % (0-2) % Lymphocytes % (Manual) Monocytes % (Manual) (0-10) % Metamyelocytes % (0-0) % Platelet Estimate (NORMAL) Anisocytosis (manual) PT (9.7-12.2) SECONDS INR APTT (21-34) SECONDS Puncture Site R r pCO2 44 (35-45) mm/Hg pO2 57 L (80-100) mm/Hg HCO3 23.1 (21-28) mmol/L ABG pH 7.34 L (7.35-7.45) ABG Total CO2 25.1 (22-28) mmol/L ABG O2 Saturation 91.1 L (95-98) % ABG Base Excess -2.1 L (-2.0-3.0) mmol/L ABG Hemoglobin 11.5 L (11.7-17.4) g/dL ABG Carboxyhemoglobin 2.2 H (0.5-1.5) % POC ABG HHb (Measured) 8.6 H (0.0-5.0) % ABG Methemoglobin 1.2 (0.0-3.0) % Nicolas Test Pos A-a O2 Difference 601.0 mm/Hg Respiratory Index 10.5 Hgb O2 Saturation 88.1 L (95.0-98.0) % Mechanical Rate 24 FiO2 100.0 % Tidal Volume 500 PEEP 10 Sodium (132-148) mmol/L Potassium (3.6-5.2) mmol/L Chloride (98-107) mmol/L Carbon Dioxide (22-30) mmol/L Anion Gap (10-20) BUN (9-20) mg/dL Creatinine (0.8-1.5) MG/DL Est GFR ( Amer) Est GFR (Non-Af Amer) Random Glucose (75-110) mg/dL Calcium (8.6-10.4) mg/dl Phosphorus (2.5-4.5) mg/dL Magnesium (1.6-2.3) mg/dL Total Bilirubin (0.2-1.3) mg/dL AST (17-59) U/L ALT (21-72) U/L Alkaline Phosphatase (38-126) U/L Total Protein (6.3-8.3) g/dL Albumin (3.5-5.0) g/dL Globulin (2.2-3.9) gm/dL Albumin/Globulin Ratio (1.0-2.1) Laboratory Results - last 24 hr 10/29/16 10/29/1610/29/17 05:24 06:22 06:22 WBC 15.5 H RBC 2.97 L Hgb 9.8 L Hct 28.9 L MCV 97.5 H MCH 33.0 H MCHC 33.9 RDW 15.0 H Plt Count 61 L MPV 10.3 Neut % (Auto) 94.6 H Lymph % (Auto) 2.4 L Furnas % (Auto) 3.0 Eos % (Auto) 0.0 Baso % (Auto) 0.0 Neut # 14.7 H Lymph # 0.4 L Furnas # 0.5 Eos # 0.0 Baso # 0.0 Neutrophils % (Manual) 88 H Band Neutrophils % 8 H Lymphocytes % (Manual) TEST NOT PERFORMED Monocytes % (Manual) 3 Metamyelocytes % 1 H Platelet Estimate Decreased L Anisocytosis (manual) Slight PT INR APTT Puncture Site R r pCO2 44 pO2 57 L HCO3 23.1 ABG pH 7.34 L ABG Total CO2 25.1 ABG O2 Saturation 91.1 L ABG Base Excess -2.1 L ABG Hemoglobin 11.5 L ABG Carboxyhemoglobin 2.2 H POC ABG HHb (Measured) 8.6 H ABG Methemoglobin 1.2 Nicolas Test Pos A-a O2 Difference 601.0 Respiratory Index 10.5 Hgb O2 Saturation 88.1 L Mechanical Rate 24 FiO2 100.0 Tidal Volume 500 PEEP 10 Sodium 147 Potassium 4.2 Chloride 103 Carbon Dioxide 23 Anion Gap 26 H BUN 99 H Creatinine 4.8 H Est GFR ( Amer) 16 Est GFR (Non-Af Amer) 13 Random Glucose 189 H Calcium 6.9 L Phosphorus 9.4 H Magnesium 2.5 H Total Bilirubin 2.1 H AST 78 H ALT 67 Alkaline Phosphatase 110 Total Protein 6.6 Albumin 2.7 L Globulin 3.9 Albumin/Globulin Ratio 0.7 L 10/29/16 06:22 WBC RBC Hgb Hct MCV MCH MCHC RDW Plt Count MPV Neut % (Auto) Lymph % (Auto) Furn[place] % (Auto) Eos % (Auto) Baso % (Auto) Neut # Lymph # Furn[place] # Eos # Baso # Neutrophils % (Manual) Band Neutrophils % Lymphocytes % (Manual) Monocytes % (Manual) Metamyelocytes % Platelet Estimate Anisocytosis (manual) PT 17.7 H INR 1.6 APTT 30 Puncture Site pCO2 pO2 HCO3 ABG pH ABG Total CO2 ABG O2 Saturation ABG Base Excess ABG Hemoglobin ABG Carboxyhemoglobin POC ABG HHb (Measured) ABG Methemoglobin Nicolas Test A-a O2 Difference Respiratory Index Hgb O2 Saturation Mechanical Rate FiO2 Tidal Volume PEEP Sodium Potassium Chloride Carbon Dioxide Anion Gap BUN Creatinine Est GFR ( Amer) Est GFR (Non-Af Amer) Random Glucose Calcium Phosphorus Magnesium Total Bilirubin AST ALT Alkaline Phosphatase Total Protein Albumin Globulin Albumin/Globulin Ratio Review of Systems - Review of Systems Systems not reviewed;Unavailable: Intubated Assessment/Plan (1) Alcohol withdrawal Assessment and plan: 45 year old male who presented to the ED with complaint of worsening cough, abdominal pain for seven days. Neuro: - Chronic alcohol abuse - Sedated - Propofol - 0.5 Klonopin 0.5mg - 2mg Midazolam - Intubated - CT of head (10/22): no acute intracranial hemorrhage identified. - Neurology Consult: Dr. Pineda --> help appreciated Pulm: - Intubated - Hypoxic on vent secondary to ARDS - chest x-ray (10/29): Small left apical pneumothorax - pigtail catheter was inserted in the left lung by pulm Dr. Gomez --> help appreciated CV: - Monitor Heme: - Thrombocytopenia - Plateletphresis: 1 unit (10/23) - Plateletphresis: 1 unit (10/28) - Plateletphresis: 1 unit (10/29) - Platelets: 61 - f/u HIT AB - Monitor Renal: - Walters placed 10/21 - Monitor - Dialysis started 10/23 - permacath placement 10/29 - Vascular Surgery Consult: Dr. De La Vega --> help appreciated - Nephrology Consult: Dr. Merida --> help appreciated Endo: - Monitor - No acute issues GI: - Tube Feeding ID: - Sepsis due to Pneumonia - blood culture: Strep Pneumoniae - Zosyn stopped 10/22 - Ceftriaxone started 10/22 - Vanco started 10/22 - ID Consult: Dr. Bowers --> help appreciated - repeat blood cultures have been negative - preliminary DVT proph - SCDs; VTE contraindication due to thrombocytopenia GI proph - Pepcid 20mg PO Daily Code status - full code Case discussed with Dr. Patti Wilde PGY-1 Current Visit: Yes Status: Acute Priority: High (2) Sepsis Current Visit: Yes Status: Acute Priority: High (3) Thrombocythemia Current Visit: Yes Status: Chronic (4) Transaminitis Current Visit: Yes Status: Acute <Nitish Armstrong - Last Filed: 10/29/16 18:02> CCU Objective - Vital Signs / Intake & Output Vital Signs (Last 4 hours): Vital Signs Temp Pulse Pulse Resp BP BP Pulse Ox 10/29/16 16:40 72 24 101/65 91 L 10/29/16 16:10 65 23 102/67 92 L 10/29/16 15:40 65 26 H 101/64 91 L 10/29/16 15:14 74 24 107/68 90 L 10/29/16 15:10 90 25 H 107/70 92 L 10/29/16 14:50 91 H 22 113/68 92 L 10/29/16 14:35 98.6 F 78 78 22 112/73 119/74 91 L 10/29/16 14:02 78 27 H 128/77 89 L Intake and Output (Last 8hrs): Intake & Output 10/29/16 10/29/16 10/29/16 06:59 14:59 22:59 Intake Total 835.2 456 107 Output Total 240 525 65 Balance 595.2 -69 42 Intake: IV 300 100 100 Intake, IV Amount 475.2 356 7 Right Proximal Port 52 56 7 Internal Jugular Right jugular TLC distal 280 300 port Right jugular TLC medial 143.2 port Tube Feeding 60 Output: Urine 240 525 65 Urethral (Walters) 240 525 65 Other: # Bowel Movements 1 - Medications Active Medications: Active Medications Generic Name Dose Route Start Last Admin Trade Name Omarq PRN Reason Stop Dose Admin Acetaminophen 650 mg 10/25/16 11:56 10/25/16 12:15 Tylenol 650mg/20.3ml Solution Ud PO 650 mg Q6 PRN Administration Temperature Acetylcysteine 4 ml 10/29/16 17:30 Acetylcysteine 20% INH Q6H MIRA Albumin Human 12.5 gm 10/26/16 18:45 10/27/16 12:01 Albumin Human 25% (12.5 Gm/50 Ml) IV Not Given Q8H MIRA Albuterol Sulfate 1.25 mg 10/22/16 14:00 10/29/16 13:35 Albuterol 0.042% Inhal Nikky (1.25mg/3ml) Ud INH 1.25 mg RQ6 MIRA Administration Midazolam HCl 100 mg/ Dextrose 100 mls @ 2.04 mls/hr 10/25/16 09:00 10/29/16 06:30 IV 0.06 mg/kg/hr .Q24H MIRA 6.12 mls/hr Protocol Administration 0.02 MG/KG/HR Folic Acid 1 mg/ Sodium 100.2 mls @ 60 mls/hr 10/25/16 14:30 10/29/16 11:58 Chloride IV 60 mls/hr DAILY MIRA Administration Dexmedetomidine HCl 400 mcg/ 100 mls @ 5.1 mls/hr 10/26/16 01:30 10/29/16 15: 10 Sodium Chloride IV 0.7 mcg/kg/hr TITR PRN 17.85 mls/hr Agitation Administration Protocol 0.2 MCG/KG/HR Norepinephrine Bitartrate 4 mg 254 mls @ 15.24 mls/hr 10/26/16 18:39 12:03 / Dextrose IV 4 mcg/min .[id number] PRN 15.24 mls/hr TITRATE PER MD ORDER Administration Protocol 4 MCG/MIN Ceftriaxone Sodium 2 gm/ 100 mls @ 100 mls/hr 10/27/16 22:00 10/29/16 09:29 Sodium Chloride IVPB 100 mls/hr Q12H MIRA Administration Lactic Acid 0 gm 10/22/16 13:00 10/29/16 09:39 Lac-Hydrin 12% Lotion (225 G) EXT 1 applic BID MIRA Administration Methylprednisolone 40 mg 10/26/16 18:41 10/29/16 09:50 Solu-Medrol IV 40 mg Q8H MIRA Administration Midazolam HCl 2 mg 10/22/16 19:22 10/25/16 08:45 Versed Inj IVP 2 mg Q4H PRN Administration Agitation Nystatin 1 applic 10/26/16 10:00 10/29/16 09:39 Nystop Topical Powder TOP 11/09/16 10:00 1 applic BID MIRA Administration Pantoprazole Sodium 40 mg 10/26/16 10:00 10/29/16 09:51 Protonix Inj IVP 40 mg DAILY MIRA Administration Sevelamer Carbonate 0.8 gm 10/28/16 18:00 10/29/16 15:09 Renvela NG Not Given TID MIRA Thiamine HCl 100 mg 10/25/16 15:30 10/29/16 09:51 Vitamin B1 Inj IV 100 mg DAILY MIRA Administration - Patient Studies Lab Studies: Microbiology Studies 10/26/16 09:10 Blood Culture - Preliminary Blood NO GROWTH AFTER 3 DAYS 10/26/16 08:35 S.aureus & Coag-Neg Staph PNA FISH - Final Blood Blood Culture - Final Coagulase Neg Staphylococcus Gram Stain - Final Lab Studies 10/29/16 10/29/16 10/29/16 Range/Units 06:22 06:22 06:22 WBC 15.5 H (4.8-10.8) K/uL RBC 2.97 L (4.40-5.90) Mil/uL Hgb 9.8 L (12.0-18.0) g/dL Hct 28.9 L (35.0-51.0) % MCV 97.5 H (80.0-94.0) fL MCH 33.0 H (27.0-31.0) pg MCHC 33.9 (33.0-37.0) g/dL RDW 15.0 H (11.5-14.5) % Plt Count 61 L (130-400) K/uL MPV 10.3 (7.2-11.7) fL Neut % (Auto) 94.6 H (50.0-75.0) % Lymph % (Auto) 2.4 L (20.0-40.0) % [place] % (Auto) 3.0 (0.0-10.0) % Eos % (Auto) 0.0 (0.0-4.0) % Baso % (Auto) 0.0 (0.0-2.0) % Neut # 14.7 H (1.8-7.0) K/uL Lymph # 0.4 L (1.0-4.3) K/uL Furnas # 0.5 (0.0-0.8) K/uL Eos # 0.0 (0.0-0.7) K/uL Baso # 0.0 (0.0-0.2) K/uL Neutrophils % (Manual) 88 H (50-75) % Band Neutrophils % 8 H (0-2) % Lymphocytes % (Manual) TEST NOT PERFORMED Monocytes % (Manual) 3 (0-10) % Metamyelocytes % 1 H (0-0) % Platelet Estimate Decreased L (NORMAL) Anisocytosis (manual) Slight PT 17.7 H (9.7-12.2) SECONDS INR 1.6 APTT 30 (21-34) SECONDS Puncture Site pCO2 (35-45) mm/Hg pO2 (80-100) mm/Hg HCO3 (21-28) mmol/L ABG pH (7.35-7.45) ABG Total CO2 (22-28) mmol/L ABG O2 Saturation (95-98) % ABG Base Excess (-2.0-3.0) mmol/L ABG Hemoglobin (11.7-17.4) g/dL ABG Carboxyhemoglobin (0.5-1.5) % POC ABG HHb (Measured) (0.0-5.0) % ABG Methemoglobin (0.0-3.0) % Nicolas Test A-a O2 Difference mm/Hg Respiratory Index Hgb O2 Saturation (95.0-98.0) % Mechanical Rate FiO2 % Tidal Volume PEEP Sodium 147 (132-148) mmol/L Potassium 4.2 (3.6-5.2) mmol/L Chloride 103 (98-107) mmol/L Carbon Dioxide 23 (22-30) mmol/L Anion Gap 26 H (10-20) BUN 99 H (9-20) mg/dL Creatinine 4.8 H (0.8-1.5) MG/DL Est GFR ( Amer) 16 Est GFR (Non-Af Amer) 13 Random Glucose 189 H (75-110) mg/dL Calcium 6.9 L (8.6-10.4) mg/dl Phosphorus 9.4 H (2.5-4.5) mg/dL Magnesium 2.5 H (1.6-2.3) mg/dL Total Bilirubin 2.1 H (0.2-1.3) mg/dL AST 78 H (17-59) U/L ALT 67 (21-72) U/L Alkaline Phosphatase 110 (38-126) U/L Total Protein 6.6 (6.3-8.3) g/dL Albumin 2.7 L (3.5-5.0) g/dL Globulin 3.9 (2.2-3.9) gm/dL Albumin/Globulin Ratio 0.7 L (1.0-2.1) 10/29/16 Range/Units 05:24 WBC (4.8-10.8) K/uL RBC (4.40-5.90) Mil/uL Hgb (12.0-18.0) g/dL Hct (35.0-51.0) % MCV (80.0-94.0) fL MCH (27.0-31.0) pg MCHC (33.0-37.0) g/dL RDW (11.5-14.5) % Plt Count (130-400) K/uL MPV (7.2-11.7) fL Neut % (Auto) (50.0-75.0) % Lymph % (Auto) (20.0-40.0) % [place] % (Auto) (0.0-10.0) % Eos % (Auto) (0.0-4.0) % Baso % (Auto) (0.0-2.0) % Neut # (1.8-7.0) K/uL Lymph # (1.0-4.3) K/uL [place] # (0.0-0.8) K/uL Eos # (0.0-0.7) K/uL Baso # (0.0-0.2) K/uL Neutrophils % (Manual) (50-75) % Band Neutrophils % (0-2) % Lymphocytes % (Manual) Monocytes % (Manual) (0-10) % Metamyelocytes % (0-0) % Platelet Estimate (NORMAL) Anisocytosis (manual) PT (9.7-12.2) SECONDS INR APTT (21-34) SECONDS Puncture Site R r pCO2 44 (35-45) mm/Hg pO2 57 L (80-100) mm/Hg HCO3 23.1 (21-28) mmol/L ABG pH 7.34 L (7.35-7.45) ABG Total CO2 25.1 (22-28) mmol/L ABG O2 Saturation 91.1 L (95-98) % ABG Base Excess -2.1 L (-2.0-3.0) mmol/L ABG Hemoglobin 11.5 L (11.7-17.4) g/dL ABG Carboxyhemoglobin 2.2 H (0.5-1.5) % POC ABG HHb (Measured) 8.6 H (0.0-5.0) % ABG Methemoglobin 1.2 (0.0-3.0) % Nicolas Test Pos A-a O2 Difference 601.0 mm/Hg Respiratory Index 10.5 Hgb O2 Saturation 88.1 L (95.0-98.0) % Mechanical Rate 24 FiO2 100.0 % Tidal Volume 500 PEEP 10 Sodium (132-148) mmol/L Potassium (3.6-5.2) mmol/L Chloride (98-107) mmol/L Carbon Dioxide (22-30) mmol/L Anion Gap (10-20) BUN (9-20) mg/dL Creatinine (0.8-1.5) MG/DL Est GFR ( Amer) Est GFR (Non-Af Amer) Random Glucose (75-110) mg/dL Calcium (8.6-10.4) mg/dl Phosphorus (2.5-4.5) mg/dL Magnesium (1.6-2.3) mg/dL Total Bilirubin (0.2-1.3) mg/dL AST (17-59) U/L ALT (21-72) U/L Alkaline Phosphatase (38-126) U/L Total Protein (6.3-8.3) g/dL Albumin (3.5-5.0) g/dL Globulin (2.2-3.9) gm/dL Albumin/Globulin Ratio (1.0-2.1) Laboratory Results - last 24 hr 10/29/16 10/29/16 10/29/16 05:24 06:22 06:22 WBC 15.5 H RBC 2.97 L Hgb 9.8 L Hct 28.9 L MCV 97.5 H MCH 33.0 H MCHC 33.9 RDW 15.0 H Plt Count 61 L MPV 10.3 Neut % (Auto) 94.6 H Lymph % (Auto) 2.4 L [place] % (Auto) 3.0 Eos % (Auto) 0.0 Baso % (Auto) 0.0 Neut # 14.7 H Lymph # 0.4 L [place] # 0.5 Eos # 0.0 Baso # 0.0 Neutrophils % (Manual) 88 H Band Neutrophils % 8 H Lymphocytes % (Manual) TEST NOT PERFORMED Monocytes % (Manual) 3 Metamyelocytes % 1 H Platelet Estimate Decreased L Anisocytosis (manual) Slight PT INR APTT Puncture Site R r pCO2 44 pO2 57 L HCO3 23.1 ABG pH 7.34 L ABG Total CO2 25.1 ABG O2 Saturation 91.1 L ABG Base Excess -2.1 L ABG Hemoglobin 11.5 L ABG Carboxyhemoglobin 2.2 H POC ABG HHb (Measured) 8.6 H ABG Methemoglobin 1.2 Nicolas Test Pos A-a O2 Difference 601.0 Respiratory Index 10.5 Hgb O2 Saturation 88.1 L Mechanical Rate 24 FiO2 100.0 Tidal Volume 500 PEEP 10 Sodium 147 Potassium 4.2 Chloride 103 Carbon Dioxide 23 Anion Gap 26 H BUN 99 H Creatinine 4.8 H Est GFR ( Amer) 16 Est GFR (Non-Af Amer) 13 Random Glucose 189 H Calcium 6.9 L Phosphorus 9.4 H Magnesium 2.5 H Total Bilirubin 2.1 H AST 78 H ALT 67 Alkaline Phosphatase 110 Total Protein 6.6 Albumin 2.7 L Globulin 3.9 Albumin/Globulin Ratio 0.7 L 10/29/16 06:22 WBC RBC Hgb Hct MCV MCH MCHC RDW Plt Count MPV Neut % (Auto) Lymph % (Auto) [place] % (Auto) Eos % (Auto) Baso % (Auto) Neut # Lymph # [place] # Eos # Baso # Neutrophils % (Manual) Band Neutrophils % Lymphocytes % (Manual) Monocytes % (Manual) Metamyelocytes % Platelet Estimate Anisocytosis (manual) PT 17.7 H INR 1.6 APTT 30 Puncture Site pCO2 pO2 HCO3 ABG pH ABG Total CO2 ABG O2 Saturation ABG Base Excess ABG Hemoglobin ABG Carboxyhemoglobin POC ABG HHb (Measured) ABG Methemoglobin Nicolas Test A-a O2 Difference Respiratory Index Hgb O2 Saturation Mechanical Rate FiO2 Tidal Volume PEEP Sodium Potassium Chloride Carbon Dioxide Anion Gap BUN Creatinine Est GFR ( Amer) Est GFR (Non-Af Amer) Random Glucose Calcium Phosphorus Magnesium Total Bilirubin AST ALT Alkaline Phosphatase Total Protein Albumin Globulin Albumin/Globulin Ratio Attending/Attestation - Attestation I have personally seen and examined this patient.: Yes I have fully participated in the care of the patient.: Yes I have reviewed all pertinent clinical information: Yes Notes (Text): 10/29/16 17:39 I have seen and examined the patient. Medical records, lab studies, and imaging were reviewed by me and a management plan was formulated on multidisciplinary rounds with resident Dr. Wilde. I agree with their above documented assessment and plan. Patient is in ARDS, and had a spontaneous pneumothorax of left lung which also had a loculated pleural effusion. Pigtail catheter was placed with lung reinflation (10/29/16). Patient is in severe sepsis, from strep pneumoniae and coag negative staph aureus, continue current antibiotic tx. Acure renal failure requiring dialysis. Permacath placement (10/29/16). Critical Care Time 35 minutes. Multi-disciplinary rounds were performed with house staff, nursing, speech therapy, respiratory therapy, pharmacy and nutrition with integrated input from the primary team/attending and other consulting services. The documented time is cumulative and includes review of patient data/exams/labs/chart review and examination of the patient on rounds and throughout the day; time is exclusive of any procedures or teaching time. 10/29/16 17:59 10/29/16 18:01
[2016-10-29] MEDS: Acetylcysteine 20% Inhal Soln (4ml) INH SCH (19:19)
[2016-10-30] MEDS: Albuterol 0.042% Inhal Sol (1.25 mg/3 mL) UD INH SCH ×4 (02:26→20:33)
[2016-10-30] MEDS: Acetylcysteine 20% Inhal Soln (4ml) INH SCH ×4 (02:26→20:33)
[2016-10-30] MEDS: MethylPREDNISolone 40 mg Vial IV SCH ×3 (02:56→18:55)
[2016-10-30] MEDS: Dexmedetomidine Hydrochloride 400 MCG in Sodium Chloride 0.9% 96 ML IV PRN ×4 (04:27→21:11)
[2016-10-30 05:00] LABS: LYMPH # 0.2 K/uL (1.0-4.3)
[2016-10-30 05:03] LABS: FUNCTIONING PLTS 52 K/uL; PLT BASE COUNT 56 K/uL; PLT(ADP) 4 K/uL
[2016-10-30 05:06] LABS: ALB/GLOB RATIO 0.7 (1.0-2.1); BILIRUBIN,TOTAL 2.2 mg/dL (0.2-1.3); TOTAL PROTEIN 6.3 g/dL (6.3-8.3)
[2016-10-30 05:07] LABS: CALCIUM 6.8 mg/dl (8.6-10.4); MAGNESIUM 2.3 mg/dL (1.6-2.3); PHOSPHOROUS 8.3 mg/dL (2.5-4.5)
[2016-10-30 05:14] LABS: BASO % 0.2 % (0.0-2.0); HEMATOCRIT 25.8 % (35.0-51.0); LYMPH % 1.4 % (20.0-40.0); MEAN CELL VOLUME 95.4 fL (80.0-94.0); MEAN CORPUSCULAR HEMOGLOBIN 32.3 pg (27.0-31.0); MEAN CORPUSCULAR HGB CONC 33.9 g/dL (33.0-37.0); MEAN PLATELET VOLUME 9.6 fL (7.2-11.7); MONO # 0.6 K/uL (0.0-0.8); MONO % 3.7 % (0.0-10.0); PLATELET COUNT 62 K/uL (130-400); RED CELL DISTRIBUTION WIDTH 14.4 % (11.5-14.5); WHITE BLOOD COUNT 14.9 K/uL (4.8-10.8)
[2016-10-30 05:47] LABS: ABG ALLEN TEST POS; ABG MECHANICAL RATE 24; ARTERIAL BLOOD HGB O2 SAT 95.2 % (95.0-98.0); ATERIAL BLOOD GAS PEEP 5; DRAW SITE R RAD; HHB 1.9 % (0.0-5.0); METHEMOGLOBIN 0.9 % (0.0-3.0)
[2016-10-30 06:45] LABS: NEUTROPHIL 96 % (50-75); TOTAL CELLS COUNTED 100
--- NOTE | 2016-10-30 10:14 | CP.PCM.PN ---
Subjective - Date & Time of Evaluation Date of Evaluation: 10/30/16 Time of Evaluation: 09:45 - Subjective Subjective: Hospitalist Progress Note (Patient was seen and examined at 9:45 AM 10/30/16) 45 year old male who presented to the ER here at [facility] on 10/21/16 itoxicated with complaints of cough and abdominal pain. He was found to be hypotensive, hopoxic, with RUL/RML Pneumonia. He eventually required intubation and ventilator support. He was also found to be in Acute Renal Failure and started receiving HD through [facility] on Wednesday10/23/16, 10/26, and today 10/27/16. He was for Right Perm Cath with Dr. De La Vega for 10/28/16 however as hist platelets declined, this was put on hold and patient will be transfused 2 bags of platelets as per ICU Team. He became hypotensive on 10/27/16 and therefore was started on Norepinephrine Drip, Albumin, and Solumedrol. Chest X Ray on 10/29/16 showed Left Pneumothorax and Funeral Director/Embalmer/Owner has placed a left sided chest tube with repeat Chest X Ray showing re- expansion of the Left Lung. He is for Right Perm Cath and Left Arm PICC Line today 10/30/16. His prognosis remains guarded. Patient is under sedation and intubated and therefore could not answer ROS questions. HEENT: NCA, Pupils are pinpoint/round/reactive to light, NO lymphadenopathy, NO JVD, NO thyromegaly, Nasal turbinates are nonerythematous/nonedematous/moist, Oral mucosa is dry. Cardio: NS1 and NS2, NO M/R/G (please note that this exam is limited by interference of diffuse course breath sounds) Resp: Course breath sounds diffusely GI: BSx4 are reduced in all 4 quadrants, Distention, Liver and Spleen could not be adequately palpated secondary to distention, Soft Ext: Pulses are strong and equal, Capillary Refill is 2 seconds, NO cyanosis, NO edema, Patches of Psoriasis on the bilateral elbows/bilateral anterior lower legs Neuro: exam not possible Skin: Bilateral Groin fungal rash Assessment and Plan (1) Alcohol withdrawal Assessment & Plan: Patient with history of DTs since his admission. Management in ICU. Patient is currently intubated and sedated. Status: Acute (2) Hypoxemia/Respiratory Distress Assessment & Plan: Patient is intubated and on ventilator support. Not a candidate for weaning at this time. Dexmedetomidine 50 ml/hr Midazolam 100 ml/hr Status: Acute (3). Left Pneumothorax Chest X Ray 10/27/16 shows dense confluent consolidative changes throughout both lungs with associated bilateral pleural effusions. Chest X Ray on 10/29/16 showed Left Pneumothorax and Funeral Director/Embalmer/Owner has placed a left sided chest tube with repeat Chest X Ray showing re-expansion of the Left Lung. F/U Chest X Ray 10/30/16 (4)Sepsis Secondary to Pneumonia and Bacteremia Assessment & Plan: X-ray chest report reviewed 10/24/16 and 10/26/16. Progression of infiltrates throughout the right upper and lower lobe treated infiltrate changes are also seen in the left middle to left lower lung cameron. Bilateral effusions. Chest X Ray 10/27/16 shows dense confluent consolidative changes throughout both lungs with associated bilateral pleural effusions. Chest X Ray on 10/29/16 showed Left Pneumothorax and Funeral Director/Embalmer/Owner has placed a left sided chest tube with repeat Chest X Ray showing re-expansion of the Left Lung. CT Angio Chest 10/23/16 showed NO PE, extensive pulmonary consolidation bilateral lower lobes and RUL, patchy infiltrates NING and RML, bilateral pleural effusions, hepatic cirrhosis, and ascites. Patient has Strep pneumoniae bacteremia as per Blood Culture 10/21/16 and Coag Neg Staph (which may be a contaminant) on 1/2 Blood Cultures from 10/26/16 Ceftriaxone 2 gm IV 1x/day Vancomycin 1 gm IV x 1 dose given by ICU team 10/24/[address] Aleyda Bowers Status: Acute (5). Hypotension Albumin 12.5 gm IV Q8H Solumedrol 40 mg IV Q8H Norepinephrine Drip (6) Seizure disorder Assessment & Plan: Secondary to alcohol withdrawal. Patient is currently intubated and sedated. No seizures reported. Neurology Dr. Pineda Status: Acute (7) Thrombocytopenia Assessment & Plan: Likely Secondary to alcohol abuse. Pepcid was discontinued 10/26/16 as this can worsen thrombocytopenia and Protonix 40 mg IV 1x/day was ordered 10/26/16 Platelets today 10/30/16 are at 62 He received 1 bag of platelets 10/28/16 as per ICU Team Platelet 1 bag ordered for 9 PM 10/29/16 as these platelets would have Heparin Abs also ordered for 10/30/16 Status: Chronic (8) Psoriasis Status: Acute (9) Renal failure Assessment & Plan: Renal U/S 10/24/16 showed nonobstructing calculus upper/midpole Right Kidney and Abdominal Ascites Hepatitis Panel is negative Patient started on hemodialysis through [facility] which is suspected to not be working properly Right Perm Cath with Dr. De La Vega today 10/30/16 at 1 PM Status: Acute (10). Anemia Likely Secondary to Chronic Alcohol Use and Renal Failure Stool Occult Blood 10/21/16 is negative HgB/Hct today 10/30/16 is 8.7/25.8 Continue to monitor (11). Hypokalemia Resolved (12). Bilateral Groin Fungal Rash Nystatin Powder 2x/day for 2 weeks started on 10/26/16 (13). Prophylactic Measures Bilateral SCDs Protonix 40 mg IV 1x/day Jevity at 30 mL per hour via NGT NO anticoagulation considering the Anemia and Thrombocytopenia Von Burkett D.O. Objective - Vital Signs/Intake and Output Vital Signs (last 24 hours): Temp Pulse Resp BP Pulse Ox 98.9 F 84 25 H 115/74 96 10/30/16 04:00 10/30/16 06:25 10/30/16 06:25 10/30/16 06:25 10/30/16 06:25 Intake and Output: 10/30/16 10/30/16 06:59 18:59 Intake Total 993.8 Output Total 1135 Balance -141.2 - Medications Medications: Current Medications Acetaminophen (Tylenol 650mg/20.3ml Solution Ud) 650 mg PO Q6 PRN PRN Reason: Temperature Last Admin: 10/25/16 12:15 Dose: 650 mg Acetylcysteine (Acetylcysteine 20%) 4 ml INH RQ6 [facility] Last Admin: 10/30/16 07:48 Dose: 4 ml Albumin Human (Albumin Human 25% (12.5 Gm/50 Ml)) 12.5 gm IV Q8H [facility] Last Admin: 10/27/16 12:01 Dose: Not Given Albuterol Sulfate (Albuterol 0.042% Inhal Nikky (1.25mg/3ml) Ud) 1.25 mg INH RQ6 [facility] Last Admin: 10/30/16 07:48 Dose: 1.25 mg Midazolam HCl 100 mg/ Dextrose 100 mls @ 2.04 mls/hr IV .Q24H [facility]; 0.02 MG/KG/ HR PRN Reason: Protocol Last Admin: 10/29/16 22:06 Dose: 0.06 mg/kg/hr, 6.12 mls/hr Folic Acid 1 mg/ Sodium (Chloride) 100.2 mls @ 60 mls/hr IV DAILY [facility] Last Admin: 10/29/16 11:58 Dose: 60 mls/hr Dexmedetomidine HCl 400 mcg/ (Sodium Chloride) 100 mls @ 5.1 mls/hr IV TITR PRN ; Protocol; 0.2 MCG/KG/HR PRN Reason: Agitation Last Admin: 10/30/16 04:27 Dose: 0.7 mcg/kg/hr, 17.85 mls/hr Norepinephrine Bitartrate 4 mg (/ Dextrose) 254 mls @ 15.24 mls/hr IV .[id number] PRN; Protocol; 4 MCG/MIN PRN Reason: TITRATE PER MD ORDER Last Admin: 10/27/16 12:03 Dose: 4 mcg/min, 15.24 mls/hr Ceftriaxone Sodium 2 gm/ (Sodium Chloride) 100 mls @ 100 mls/hr IVPB Q12H [facility] Last Admin: 10/29/16 21:45 Dose: 100 mls/hr Lactic Acid (Lac-Hydrin 12% Lotion (225 G)) 0 gm EXT BID [facility] Last Admin: 10/29/16 18:39 Dose: 1 applic Methylprednisolone (Solu-Medrol) 40 mg IV Q8H [facility] Last Admin: 10/30/16 02:56 Dose: 40 mg Midazolam HCl (Versed Inj) 2 mg IVP Q4H PRN PRN Reason: Agitation Last Admin: 10/25/16 08:45 Dose: 2 mg Nystatin (Nystop Topical Powder) 1 applic TOP BID [facility] Stop: 11/09/16 10:00 Last Admin: 10/29/16 18:39 Dose: 1 applic Pantoprazole Sodium (Protonix Inj) 40 mg IVP DAILY [facility] Last Admin: 10/29/16 09:51 Dose: 40 mg Sevelamer Carbonate (Renvela) 0.8 gm NG TID [facility] Last Admin: 10/29/16 18:39 Dose: 0.8 gm Thiamine HCl (Vitamin B1 Inj) 100 mg IV DAILY [facility] Last Admin: 10/29/16 09:51 Dose: 100 mg - Labs Labs: 10/30/16 04:58 10/30/16 04:58 PT 17.7 SECONDS (9.7-12.2) H 10/29/16 06:22 INR 1.6 10/29/16 06:22 APTT 30 SECONDS (21-34) 10/29/16 06:22
[2016-10-30] MEDS: Sevelamer Carb 0.8 gm/Packet NG SCH ×3 (10:15→17:06)
[2016-10-30] MEDS: cefTRIAXone 2 GM in Sodium Chloride 0.9% 100 ML IVPB SCH ×2 (10:20→21:47)
[2016-10-30] MEDS: Thiamine 100 mg/ml Inj IV SCH (10:21)
[2016-10-30] MEDS: Ammonium Lactate 12% Lotion (225 g) EXT SCH ×2 (10:22→18:54)
[2016-10-30] MEDS ORDERED: Propofol 10 mg/ml Inj (20 ML) IV ONE ×2 (10:33→17:16)
--- NOTE | 2016-10-30 11:04 | RAD ---
Chest x-ray single frontal view History: Intubated. Comparison: 10/29/2016 Findings: Lines and tubes in stable position. Moderate to severe venous congestion with confluent bilateral bibasilar airspace opacities with associated moderate bilateral pleural effusions. Right midlung atelectasis. Cardiomegaly. Degenerative changes in the spine and shoulders. Impression: Moderate to severe venous congestion with confluent bilateral bibasilar airspace opacities with associated moderate bilateral pleural effusions. Right midlung atelectasis. Cardiomegaly.
--- NOTE | 2016-10-30 11:22 | CP.PCM.PN ---
Subjective - Date & Time of Evaluation Date of Evaluation: 10/30/16 Time of Evaluation: 11:10 - Subjective Subjective: Remains intubated & ventilated Objective - Vital Signs/Intake and Output Vital Signs (last 24 hours): Temp Pulse Resp BP Pulse Ox 98.9 F 84 25 H 115/74 96 10/30/16 04:00 10/30/16 06:25 10/30/16 06:25 10/30/16 06:25 10/30/16 06:25 Intake and Output: 10/30/16 10/30/16 06:59 18:59 Intake Total 993.8 100 Output Total 1135 Balance -141.2 100 - Medications Medications: Current Medications Acetaminophen (Tylenol 650mg/20.3ml Solution Ud) 650 mg PO Q6 PRN PRN Reason: Temperature Last Admin: 10/25/16 12:15 Dose: 650 mg Acetylcysteine (Acetylcysteine 20%) 4 ml INH RQ6 [facility] Last Admin: 10/30/16 07:48 Dose: 4 ml Albumin Human (Albumin Human 25% (12.5 Gm/50 Ml)) 12.5 gm IV Q8H [facility] Last Admin: 10/27/16 12:01 Dose: Not Given Albuterol Sulfate (Albuterol 0.042% Inhal Nikky (1.25mg/3ml) Ud) 1.25 mg INH RQ6 [facility] Last Admin: 10/30/16 07:48 Dose: 1.25 mg Midazolam HCl 100 mg/ Dextrose 100 mls @ 2.04 mls/hr IV .Q24H [facility]; 0.02 MG/KG/ HR PRN Reason: Protocol Last Admin: 10/29/16 22:06 Dose: 0.06 mg/kg/hr, 6.12 mls/hr Folic Acid 1 mg/ Sodium (Chloride) 100.2 mls @ 60 mls/hr IV DAILY [facility] Last Admin: 10/30/16 10:20 Dose: 60 mls/hr Dexmedetomidine HCl 400 mcg/ (Sodium Chloride) 100 mls @ 5.1 mls/hr IV TITR PRN ; Protocol; 0.2 MCG/KG/HR PRN Reason: Agitation Last Admin: 10/30/16 10:19 Dose: 0.7 mcg/kg/hr, 17.85 mls/hr Norepinephrine Bitartrate 4 mg (/ Dextrose) 254 mls @ 15.24 mls/hr IV .[id number] PRN; Protocol; 4 MCG/MIN PRN Reason: TITRATE PER MD ORDER Last Admin: 10/27/16 12:03 Dose: 4 mcg/min, 15.24 mls/hr Ceftriaxone Sodium 2 gm/ (Sodium Chloride) 100 mls @ 100 mls/hr IVPB Q12H [facility] Last Admin: 10/30/16 10:20 Dose: 100 mls/hr Lactic Acid (Lac-Hydrin 12% Lotion (225 G)) 0 gm EXT BID [facility] Last Admin: 10/30/16 10:22 Dose: 1 applic Methylprednisolone (Solu-Medrol) 40 mg IV Q8H [facility] Last Admin: 10/30/16 02:56 Dose: 40 mg Midazolam HCl (Versed Inj) 2 mg IVP Q4H PRN PRN Reason: Agitation Last Admin: 10/25/16 08:45 Dose: 2 mg Nystatin (Nystop Topical Powder) 1 applic TOP BID [facility] Stop: 11/09/16 10:00 Last Admin: 10/30/16 10:21 Dose: 1 applic Pantoprazole Sodium (Protonix Inj) 40 mg IVP DAILY [facility] Last Admin: 10/30/16 10:21 Dose: 40 mg Sevelamer Carbonate (Renvela) 0.8 gm NG TID [facility] Last Admin: 10/30/16 10:15 Dose: Not Given Thiamine HCl (Vitamin B1 Inj) 100 mg IV DAILY [facility] Last Admin: 10/30/16 10:21 Dose: 100 mg - Labs Labs: 10/30/16 04:58 10/30/16 04:58 PT 17.7 SECONDS (9.7-12.2) H 10/29/16 06:22 INR 1.6 10/29/16 06:22 APTT 30 SECONDS (21-34) 10/29/16 06:22 - Respiratory Exam Additional comments: Lungs clear ant B/L - Cardiovascular Exam Cardiovascular Exam: REGULAR RHYTHM Additional comments: NSR 73/min - GI/Abdominal Exam GI & Abdominal Exam: Soft - Extremities Exam Additional comments: No edema Assessment and Plan - Assessment and Plan (Free Text) Assessment: Acute renal failure requiring dialysis support UO has improved Voided > 1100 yesterdat Will continue dialysis support. Awaiting replacement of dialysis catheter Respiratory failure, B/L pneumonia Sepsis Lt Ptx S/P chest tube Alcoholism, liver cirrhosis Plan: Continue current care HD tomorrow. BUN is still high ? sec to tube feedings
--- NOTE | 2016-10-30 12:20 | CP.CCUPN ---
<Simran Wilde - Last Filed: 10/30/16 12:12> CCU Subjective - Physician Review Subjective (Free Text): Patient was seen and examined at bedside in the AM. Patient is intubated and sedated and therefore cannot answer ROS questions. CCU Objective - Vital Signs / Intake & Output Intake and Output (Last 8hrs): Intake & Output 10/29/16 10/30/16 10/30/16 22:59 06:59 14:59 Intake Total 599.2 594.2 100 Output Total 700 650 Balance -100.8 -55.8 100 Intake: IV 300 100 100 Intake, IV Amount 299.2 199.2 Right Proximal Port 56 56 Internal Jugular Right jugular TLC distal 100 port Right jugular TLC medial 143.2 143.2 port Blood Product 0 295 Apheresis Plts Acda Lr 0 295 1st Con Unit [id number] Output: Chest Tube Drainage 300 300 Left Mid-Axillary Chest 300 300 Urine 400 350 Urethral (Walters) 400 350 - Physical Exam Physical Exam Limitations: Positive for: Clinical Condition Head: Positive for: Atraumatic, Normocephalic Mouth: Positive for: Dry Respiratory/Chest: Positive for: Respiratory Distress, Decreased Breath Sounds, Other (intubated ) Cardiovascular: Positive for: Normal S1, S2, Tachycardic Abdomen: Positive for: Distention, Normal Bowel Sounds Genitourinary Male: Positive for: Other (walters in place) Upper Extremity: Negative for: Edema Lower Extremity: Negative for: Edema Neurological: Negative for: GCS=15, Speech Normal (patient is intubated and sedated ) Skin: Positive for: Rashes (scrotal rash ), Other (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, bilateral upper extremities, and in gluteal fold.) Psychiatric: Negative for: Alert (patient is sedated and intubated ) - Medications Active Medications: Active Medications Generic Name Dose Route Start Last Admin Trade Name Freq PRN Reason Stop Dose Admin Acetaminophen 650 mg 10/25/16 11:56 10/25/16 12:15 Tylenol 650mg/20.3ml Solution Ud PO 650 mg Q6 PRN Administration Temperature Acetylcysteine 4 ml 10/29/16 17:30 10/30/16 07:48 Acetylcysteine 20% INH 4 ml RQ6 MIRA Administration Albumin Human 12.5 gm 10/26/16 18:45 10/27/16 12:01 Albumin Human 25% (12.5 Gm/50 Ml) IV Not Given Q8H MIRA Albuterol Sulfate 1.25 mg 10/22/16 14:00 10/30/16 07:48 Albuterol 0.042% Inhal Nikky (1.25mg/3ml) Ud INH 1.25 mg RQ6 MIRA Administration Midazolam HCl 100 mg/ Dextrose 100 mls @ 2.04 mls/hr 10/25/16 09:00 10/29/16 22:06 IV 0.06 mg/kg/hr .Q24H MIRA 6.12 mls/hr Protocol Administration 0.02 MG/KG/HR Folic Acid 1 mg/ Sodium 100.2 mls @ 60 mls/hr 10/25/16 14:30 10/30/16 10:20 Chloride IV 60 mls/hr DAILY MIRA Administration Dexmedetomidine HCl 400 mcg/ 100 mls @ 5.1 mls/hr 10/26/16 01:30 10/30/16 10: 19 Sodium Chloride IV 0.7 mcg/kg/hr TITR PRN 17.85 mls/hr Agitation Administration Protocol 0.2 MCG/KG/HR Norepinephrine Bitartrate 4 mg 254 mls @ 15.24 mls/hr 10/26/16 18:39 12:03 / Dextrose IV 4 mcg/min .[id number] PRN 15.24 mls/hr TITRATE PER MD ORDER Administration Protocol 4 MCG/MIN Ceftriaxone Sodium 2 gm/ 100 mls @ 100 mls/hr 10/27/16 22:00 10/30/16 10:20 Sodium Chloride IVPB 100 mls/hr Q12H MIRA Administration Vancomycin HCl 1 gm/ Sodium 250 mls @ 166.7 mls/hr 10/30/16 11:36 Chloride IVPB 10/30/16 13:05 ONCE ONE Vancomycin HCl 500 mg/ Sodium 100 mls @ 100 mls/hr 11/02/16 11:37 Chloride IVPB 11/02/16 12:36 ONCE ONE Lactic Acid 0 gm 10/22/16 13:00 10/30/16 10:22 Lac-Hydrin 12% Lotion (225 G) EXT 1 applic BID MIRA Administration Methylprednisolone 40 mg 10/26/16 18:41 10/30/16 02:56 Solu-Medrol IV 40 mg Q8H MRIA Administration Midazolam HCl 2 mg 10/22/16 19:22 10/25/16 08:45 Versed Inj IVP 2 mg Q4H PRN Administration Agitation Nystatin 1 applic 10/26/16 10:00 10/30/16 10:21 Nystop Topical Powder TOP 11/09/16 10:00 1 applic BID MIRA Administration Pantoprazole Sodium 40 mg 10/26/16 10:00 10/30/16 10:21 Protonix Inj IVP 40 mg DAILY MIRA Administration Sevelamer Carbonate 1,600 gm 10/30/16 11:31 Renvela NG TID MIRA Thiamine HCl 100 mg 10/25/16 15:30 10/30/16 10:21 Vitamin B1 Inj IV 100 mg DAILY MIRA Administration - Patient Studies Lab Studies: Microbiology Studies 10/26/16 09:10 Blood Culture - Preliminary Blood NO GROWTH AFTER 4 DAYS 10/28/16 21:00 Blood Culture - Preliminary Blood-During Dialysis NO GROWTH AFTER 24 HOURS 10/28/16 21:30 Blood Culture - Preliminary Blood-During Dialysis NO GROWTH AFTER 24 HOURS Lab Studies 10/30/16 10/30/16 10/30/16 Range/Units 05:25 04:58 04:58 WBC 14.9 H (4.8-10.8) K/uL RBC 2.70 L (4.40-5.90) Mil/uL Hgb 8.7 L (12.0-18.0) g/dL Hct 25.8 L (35.0-51.0) % MCV 95.4 H D (80.0-94.0) fL MCH 32.3 H (27.0-31.0) pg MCHC 33.9 (33.0-37.0) g/dL RDW 14.4 (11.5-14.5) % Plt Count 62 L (130-400) K/uL MPV 9.6 (7.2-11.7) fL Neut % (Auto) 94.7 H (50.0-75.0) % Lymph % (Auto) 1.4 L (20.0-40.0) % Mercer % (Auto) 3.7 (0.0-10.0) % Eos % (Auto) 0.0 (0.0-4.0) % Baso % (Auto) 0.2 (0.0-2.0) % Neut # 14.1 H (1.8-7.0) K/uL Lymph # 0.2 L (1.0-4.3) K/uL Mercer # 0.6 (0.0-0.8) K/uL Eos # 0.0 (0.0-0.7) K/uL Baso # 0.0 (0.0-0.2) K/uL Neutrophils % (Manual) 96 H (50-75) % Band Neutrophils % 1 (0-2) % Lymphocytes % (Manual) 1 L (20-40) % Monocytes % (Manual) 2 (0-10) % Platelet Estimate Decreased L (NORMAL) Polychromasia Slight Macrocytosis (manual) Moderate Plt Function Assay K/uL Puncture Site R rad pCO2 43 (35-45) mm/Hg pO2 75 L (80-100) mm/Hg HCO3 27.3 (21-28) mmol/L ABG pH 7.42 (7.35-7.45) ABG Total CO2 29.2 H (22-28) mmol/L ABG O2 Saturation 98.0 (95-98) % ABG Base Excess 3.1 H (-2.0-3.0) mmol/L ABG Hemoglobin 9.2 L (11.7-17.4) g/dL ABG Carboxyhemoglobin 2.0 H (0.5-1.5) % POC ABG HHb (Measured) 1.9 (0.0-5.0) % ABG Methemoglobin 0.9 (0.0-3.0) % Nicolas Test Pos A-a O2 Difference 584.0 mm/Hg Respiratory Index 7.8 Hgb O2 Saturation 95.2 (95.0-98.0) % Mechanical Rate 24 FiO2 100.0 % Tidal Volume 500 PEEP 5 Sodium 146 (132-148) mmol/L Potassium 4.0 (3.6-5.2) mmol/L Chloride 102 (98-107) mmol/L Carbon Dioxide 25 (22-30) mmol/L Anion Gap 23 H (10-20) BUN 85 H (9-20) mg/dL Creatinine 4.0 H (0.8-1.5) MG/DL Est GFR ( Amer) 20 Est GFR (Non-Af Amer) 16 Random Glucose 166 H (75-110) mg/dL Calcium 6.8 L (8.6-10.4) mg/dl Phosphorus 8.3 H (2.5-4.5) mg/dL Magnesium 2.3 (1.6-2.3) mg/dL Total Bilirubin 2.2 H (0.2-1.3) mg/dL AST 72 H (17-59) U/L ALT 65 (21-72) U/L Alkaline Phosphatase 100 (38-126) U/L Total Protein 6.3 (6.3-8.3) g/dL Albumin 2.6 L (3.5-5.0) g/dL Globulin 3.7 (2.2-3.9) gm/dL Albumin/Globulin Ratio 0.7 L (1.0-2.1) Random Vancomycin ug/mL 10/30/16 10/29/16 Range/Units 04:49 18:09 WBC (4.8-10.8) K/uL RBC (4.40-5.90) Mil/uL Hgb (12.0-18.0) g/dL Hct (35.0-51.0) % MCV (80.0-94.0) fL MCH (27.0-31.0) pg MCHC (33.0-37.0) g/dL RDW (11.5-14.5) % Plt Count (130-400) K/uL MPV (7.2-11.7) fL Neut % (Auto) (50.0-75.0) % Lymph % (Auto) (20.0-40.0) % Mercer % (Auto) (0.0-10.0) % Eos % (Auto) (0.0-4.0) % Baso % (Auto) (0.0-2.0) % Neut # (1.8-7.0) K/uL Lymph # (1.0-4.3) K/uL Mercer # (0.0-0.8) K/uL Eos # (0.0-0.7) K/uL Baso # (0.0-0.2) K/uL Neutrophils % (Manual) (50-75) % Band Neutrophils % (0-2) % Lymphocytes % (Manual) (20-40) % Monocytes % (Manual) (0-10) % Platelet Estimate (NORMAL) Polychromasia Macrocytosis (manual) Plt Function Assay 52 K/uL Puncture Site pCO2 (35-45) mm/Hg pO2 (80-100) mm/Hg HCO3 (21-28) mmol/L ABG pH (7.35-7.45) ABG Total CO2 (22-28) mmol/L ABG O2 Saturation (95-98) % ABG Base Excess (-2.0-3.0) mmol/L ABG Hemoglobin (11.7-17.4) g/dL ABG Carboxyhemoglobin (0.5-1.5) % POC ABG HHb (Measured) (0.0-5.0) % ABG Methemoglobin (0.0-3.0) % Nicolas Test A-a O2 Difference mm/Hg Respiratory Index Hgb O2 Saturation (95.0-98.0) % Mechanical Rate FiO2 % Tidal Volume PEEP Sodium (132-148) mmol/L Potassium (3.6-5.2) mmol/L Chloride (98-107) mmol/L Carbon Dioxide (22-30) mmol/L Anion Gap (10-20) BUN (9-20) mg/dL Creatinine (0.8-1.5) MG/DL Est GFR ( Amer) Est GFR (Non-Af Amer) Random Glucose (75-110) mg/dL Calcium (8.6-10.4) mg/dl Phosphorus (2.5-4.5) mg/dL Magnesium (1.6-2.3) mg/dL Total Bilirubin (0.2-1.3) mg/dL AST (17-59) U/L ALT (21-72) U/L Alkaline Phosphatase (38-126) U/L Total Protein (6.3-8.3) g/dL Albumin (3.5-5.0) g/dL Globulin (2.2-3.9) gm/dL Albumin/Globulin Ratio (1.0-2.1) Random Vancomycin 21.68 ug/mL Laboratory Results - last 24 hr 10/29/16 10/30/16 10/30/16 18:09 04:49 04:58 WBC 14.9 H RBC 2.70 L Hgb 8.7 L Hct 25.8 L MCV 95.4 H D MCH 32.3 H MCHC 33.9 RDW 14.4 Plt Count 62 L MPV 9.6 Neut % (Auto) 94.7 H Lymph % (Auto) 1.4 L Mercer % (Auto) 3.7 Eos % (Auto) 0.0 Baso % (Auto) 0.2 Neut # 14.1 H Lymph # 0.2 L Mercer # 0.6 Eos # 0.0 Baso # 0.0 Neutrophils % (Manual) 96 H Band Neutrophils % 1 Lymphocytes % (Manual) 1 L Monocytes % (Manual) 2 Platelet Estimate Decreased L Polychromasia Slight Macrocytosis (manual) Moderate Plt Function Assay 52 Puncture Site pCO2 pO2 HCO3 ABG pH ABG Total CO2 ABG O2 Saturation ABG Base Excess ABG Hemoglobin ABG Carboxyhemoglobin POC ABG HHb (Measured) ABG Methemoglobin Nicolas Test A-a O2 Difference Respiratory Index Hgb O2 Saturation Mechanical Rate FiO2 Tidal Volume PEEP Sodium Potassium Chloride Carbon Dioxide Anion Gap BUN Creatinine Est GFR ( Amer) Est GFR (Non-Af Amer) Random Glucose Calcium Phosphorus Magnesium Total Bilirubin AST ALT Alkaline Phosphatase Total Protein Albumin Globulin Albumin/Globulin Ratio Random Vancomycin 21.68 10/30/16 10/30/16 04:58 05:25 WBC RBC Hgb Hct MCV MCH MCHC RDW Plt Count MPV Neut % (Auto) Lymph % (Auto) Mercer % (Auto) Eos % (Auto) Baso % (Auto) Neut # Lymph # Mercer # Eos # Baso # Neutrophils % (Manual) Band Neutrophils % Lymphocytes % (Manual) Monocytes % (Manual) Platelet Estimate Polychromasia Macrocytosis (manual) Plt Function Assay Puncture Site R rad pCO2 43 pO2 75 L HCO3 27.3 ABG pH 7.42 ABG Total CO2 29.2 H ABG O2 Saturation 98.0 ABG Base Excess 3.1 H ABG Hemoglobin 9.2 L ABG Carboxyhemoglobin 2.0 H POC ABG HHb (Measured) 1.9 ABG Methemoglobin 0.9 Nicolas Test Pos A-a O2 Difference 584.0 Respiratory Index 7.8 Hgb O2 Saturation 95.2 Mechanical Rate 24 FiO2 100.0 Tidal Volume 500 PEEP 5 Sodium 146 Potassium 4.0 Chloride 102 Carbon Dioxide 25 Anion Gap 23 H BUN 85 H Creatinine 4.0 H Est GFR ( Amer) 20 Est GFR (Non-Af Amer) 16 Random Glucose 166 H Calcium 6.8 L Phosphorus 8.3 H Magnesium 2.3 Total Bilirubin 2.2 H AST 72 H ALT 65 Alkaline Phosphatase 100 Total Protein 6.3 Albumin 2.6 L Globulin 3.7 Albumin/Globulin Ratio 0.7 L Random Vancomycin Review of Systems - Review of Systems Systems not reviewed;Unavailable: Intubated Assessment/Plan (1) Alcohol withdrawal Assessment and plan: 45 year old male who presented to the ED with complaint of worsening cough, abdominal pain for seven days. Neuro: - Neurology Consult: Dr. Pineda --> help appreciated - Chronic alcohol abuse - Sedated - Propofol - 0.5 Klonopin 0.5mg - 2mg Midazolam - After permacath change to Midazolam PRN Pulm: - Intubated - Hypoxic on vent secondary to ARDS - chest x-ray (10/29): Small left apical pneumothorax - pigtail catheter was inserted in the left lung by pulm Dr. Gomez --> help appreciated - Severe ARDS Vent Settings: FiO2 100; Peep 10; Tidal Volume: 400 CV: - Norepinephrine - Will need PICC line placement Wednesday Heme: - Thrombocytopenia - Plateletphresis: 1 unit (10/23) - Plateletphresis: 1 unit (10/28) - Plateletphresis: 1 unit (10/29) - Plateletphresis: 1 unit (10/30) - Platelets: 62 - f/u HIT AB - Monitor Renal: - Walters placed 10/21 - Monitor - Dialysis started 10/23 - f/u permacath placement 10/30 - Vascular Surgery Consult: Dr. De La Vega --> help appreciated - Nephrology Consult: Dr. Merida --> help appreciated Endo: - Monitor - No acute issues GI: - Tube Feeding ID: - Sepsis due to Pneumonia - blood culture: Strep Pneumoniae - Zosyn stopped 10/22 - Ceftriaxone started 10/22 - Vanco: 1gm dose given 10/30; f/u 500mg after dialysis - f/u Vanco random Thursday 11/02 - ID Consult: Dr. Bowers --> help appreciated - repeat blood cultures have been negative - preliminary DVT proph - SCDs; heparin held due to permacath placement - restart heparin q12 after GI proph - Pepcid 20mg PO Daily Code status - full code Case discussed with Dr. Patti Wilde PGY-1 Current Visit: Yes Status: Acute Priority: High (2) Sepsis Current Visit: Yes Status: Acute Priority: High (3) Thrombocythemia Current Visit: Yes Status: Chronic (4) Transaminitis Current Visit: Yes Status: Acute <Nitish Armstrong - Last Filed: 10/30/16 15:40> CCU Objective - Vital Signs / Intake & Output Vital Signs (Last 4 hours): Vital Signs Temp Pulse Resp BP Pulse Ox 10/30/16 15:27 98.1 F 74 18 144/96 H 10/30/16 14:45 98.1 F 78 20 141/83 10/30/16 14:32 73 18 141/93 H 97 10/30/16 14:17 73 17 142/93 H 97 10/30/16 14:15 98.5 F 77 18 140/90 10/30/16 14:02 76 22 131/90 97 10/30/16 14:00 98.0 F 76 16 131/90 97 10/30/16 13:47 75 17 140/90 98 10/30/16 13:45 98.2 F 63 14 128/82 10/30/16 13:25 66 24 128/82 10/30/16 12:25 66 26 H 119/78 10/30/16 12:00 98.2 F Intake and Output (Last 8hrs): Intake & Output 10/30/16 10/30/16 10/30/16 06:59 14:59 22:59 Intake Total 594.2 274.7 683 Output Total 650 230 Balance -55.8 44.7 683 Intake: IV 100 200 100 Intake, IV Amount 199.2 74.7 Right Proximal Port 56 21 Internal Jugular Right jugular TLC medial 143.2 53.7 port Blood Product 295 0 583 Apheresis Platelets Acda 0 583 Lr Unit [id number] Apheresis Plts Acda Lr 295 1st Con Unit [id number] Output: Chest Tube Drainage 300 60 Left Mid-Axillary Chest 300 60 Urine 350 170 Urethral (Walters) 350 170 - Medications Active Medications: Active Medications Generic Name Dose Route Start Last Admin Trade Name Freq PRN Reason Stop Dose Admin Acetaminophen 650 mg 10/25/16 11:56 10/25/16 12:15 Tylenol 650mg/20.3ml Solution Ud PO 650 mg Q6 PRN Administration Temperature Acetylcysteine 4 ml 10/29/16 17:30 10/30/16 13:11 Acetylcysteine 20% INH 4 ml RQ6 MIRA Administration Albumin Human 12.5 gm 10/26/16 18:45 10/27/16 12:01 Albumin Human 25% (12.5 Gm/50 Ml) IV Not Given Q8H MIRA Albuterol Sulfate 1.25 mg 10/22/16 14:00 10/30/16 13:10 Albuterol 0.042% Inhal Nikky (1.25mg/3ml) Ud INH 1.25 mg RQ6 MIRA Administration Midazolam HCl 100 mg/ Dextrose 100 mls @ 2.04 mls/hr 10/25/16 09:00 10/30/16 13:23 IV 0.06 mg/kg/hr .Q24H MIRA 6.12 mls/hr Protocol Administration 0.02 MG/KG/HR Folic Acid 1 mg/ Sodium 100.2 mls @ 60 mls/hr 10/25/16 14:30 10/30/16 10:20 Chloride IV 60 mls/hr DAILY MIRA Administration Dexmedetomidine HCl 400 mcg/ 100 mls @ 5.1 mls/hr 10/26/16 01:30 10/30/16 15: 09 Sodium Chloride IV 0.7 mcg/kg/hr TITR PRN 17.85 mls/hr Agitation Administration Protocol 0.2 MCG/KG/HR Norepinephrine Bitartrate 4 mg 254 mls @ 15.24 mls/hr 10/26/16 18:39 12:03 / Dextrose IV 4 mcg/min .[id number] PRN 15.24 mls/hr TITRATE PER MD ORDER Administration Protocol 4 MCG/MIN Ceftriaxone Sodium 2 gm/ 100 mls @ 100 mls/hr 10/27/16 22:00 10/30/16 10:20 Sodium Chloride IVPB 100 mls/hr Q12H MIRA Administration Vancomycin HCl 500 mg/ Sodium 100 mls @ 100 mls/hr 11/02/16 13:00 Chloride IVPB 11/02/16 13:59 ONCE ONE Lactic Acid 0 gm 10/22/16 13:00 10/30/16 10:22 Lac-Hydrin 12% Lotion (225 G) EXT 1 applic BID MIRA Administration Methylprednisolone 40 mg 10/26/16 18:41 10/30/16 13:23 Solu-Medrol IV 40 mg Q8H MIRA Administration Midazolam HCl 2 mg 10/22/16 19:22 10/25/16 08:45 Versed Inj IVP 2 mg Q4H PRN Administration Agitation Nystatin 1 applic 10/26/16 10:00 10/30/16 10:21 Nystop Topical Powder TOP 11/09/16 10:00 1 applic BID MIRA Administration Pantoprazole Sodium 40 mg 10/26/16 10:00 10/30/16 10:21 Protonix Inj IVP 40 mg DAILY MIRA Administration Sevelamer Carbonate 1.6 gm 10/30/16 12:00 10/30/16 13:18 Renvela NG Not Given TIDCC MIRA Thiamine HCl 100 mg 10/25/16 15:30 10/30/16 10:21 Vitamin B1 Inj IV 100 mg DAILY MIRA Administration - Patient Studies Lab Studies: Microbiology Studies 10/26/16 09:10 Blood Culture - Preliminary Blood NO GROWTH AFTER 4 DAYS 10/28/16 21:00 Blood Culture - Preliminary Blood-During Dialysis NO GROWTH AFTER 24 HOURS 10/28/16 21:30 Blood Culture - Preliminary Blood-During Dialysis NO GROWTH AFTER 24 HOURS Lab Studies 10/30/16 10/30/16 10/30/16 Range/Units 12:34 05:25 04:58 WBC (4.8-10.8) K/uL RBC (4.40-5.90) Mil/uL Hgb (12.0-18.0) g/dL Hct (35.0-51.0) % MCV (80.0-94.0) fL MCH (27.0-31.0) pg MCHC (33.0-37.0) g/dL RDW (11.5-14.5) % Plt Count (130-400) K/uL MPV (7.2-11.7) fL Neut % (Auto) (50.0-75.0) % Lymph % (Auto) (20.0-40.0) % Mercer % (Auto) (0.0-10.0) % Eos % (Auto) (0.0-4.0) % Baso % (Auto) (0.0-2.0) % Neut # (1.8-7.0) K/uL Lymph # (1.0-4.3) K/uL Mercer # (0.0-0.8) K/uL Eos # (0.0-0.7) K/uL Baso # (0.0-0.2) K/uL Neutrophils % (Manual) (50-75) % Band Neutrophils % (0-2) % Lymphocytes % (Manual) (20-40) % Monocytes % (Manual) (0-10) % Platelet Estimate (NORMAL) Polychromasia Macrocytosis (manual) Plt Function Assay K/uL Puncture Site Rra R rad pCO2 38 43 (35-45) mm/Hg pO2 78 L 75 L (80-100) mm/Hg HCO3 25.6 27.3 (21-28) mmol/L ABG pH 7.43 7.42 (7.35-7.45) ABG Total CO2 26.4 29.2 H (22-28) mmol/L ABG O2 Saturation 98.4 H 98.0 (95-98) % ABG Base Excess 0.9 3.1 H (-2.0-3.0) mmol/L ABG Hemoglobin 8.9 L 9.2 L (11.7-17.4) g/dL ABG Carboxyhemoglobin 1.9 H 2.0 H (0.5-1.5) % POC ABG HHb (Measured) 1.6 1.9 (0.0-5.0) % ABG Methemoglobin 1.0 0.9 (0.0-3.0) % Nicolas Test Po Pos A-a O2 Difference 516.0 584.0 mm/Hg Respiratory Index 6.6 7.8 Hgb O2 Saturation 95.5 95.2 (95.0-98.0) % Vent Mode Prvc Mechanical Rate 24 FiO2 90.0 100.0 % Tidal Volume 400 500 PEEP 10 5 Sodium 146 (132-148) mmol/L Potassium 4.0 (3.6-5.2) mmol/L Chloride 102 (98-107) mmol/L Carbon Dioxide 25 (22-30) mmol/L Anion Gap 23 H (10-20) BUN 85 H (9-20) mg/dL Creatinine 4.0 H (0.8-1.5) MG/DL Est GFR ( Amer) 20 Est GFR (Non-Af Amer) 16 Random Glucose 166 H (75-110) mg/dL Calcium 6.8 L (8.6-10.4) mg/dl Phosphorus 8.3 H (2.5-4.5) mg/dL Magnesium 2.3 (1.6-2.3) mg/dL Total Bilirubin 2.2 H (0.2-1.3) mg/dL AST 72 H (17-59) U/L ALT 65 (21-72) U/L Alkaline Phosphatase 100 (38-126) U/L Total Protein 6.3 (6.3-8.3) g/dL Albumin 2.6 L (3.5-5.0) g/dL Globulin 3.7 (2.2-3.9) gm/dL Albumin/Globulin Ratio 0.7 L (1.0-2.1) Random Vancomycin ug/mL 10/30/16 10/30/16 10/29/16 Range/Units 04:58 04:49 18:09 WBC 14.9 H (4.8-10.8) K/uL RBC 2.70 L (4.40-5.90) Mil/uL Hgb 8.7 L (12.0-18.0) g/dL Hct 25.8 L (35.0-51.0) % MCV 95.4 H D (80.0-94.0) fL MCH 32.3 H (27.0-31.0) pg MCHC 33.9 (33.0-37.0) g/dL RDW 14.4 (11.5-14.5) % Plt Count 62 L (130-400) K/uL MPV 9.6 (7.2-11.7) fL Neut % (Auto) 94.7 H (50.0-75.0) % Lymph % (Auto) 1.4 L (20.0-40.0) % Mercer % (Auto) 3.7 (0.0-10.0) % Eos % (Auto) 0.0 (0.0-4.0) % Baso % (Auto) 0.2 (0.0-2.0) % Neut # 14.1 H (1.8-7.0) K/uL Lymph # 0.2 L (1.0-4.3) K/uL Mercer # 0.6 (0.0-0.8) K/uL Eos # 0.0 (0.0-0.7) K/uL Baso # 0.0 (0.0-0.2) K/uL Neutrophils % (Manual) 96 H (50-75) % Band Neutrophils % 1 (0-2) % Lymphocytes % (Manual) 1 L (20-40) % Monocytes % (Manual) 2 (0-10) % Platelet Estimate Decreased L (NORMAL) Polychromasia Slight Macrocytosis (manual) Moderate Plt Function Assay 52 K/uL Puncture Site pCO2 (35-45) mm/Hg pO2 (80-100) mm/Hg HCO3 (21-28) mmol/L ABG pH (7.35-7.45) ABG Total CO2 (22-28) mmol/L ABG O2 Saturation (95-98) % ABG Base Excess (-2.0-3.0) mmol/L ABG Hemoglobin (11.7-17.4) g/dL ABG Carboxyhemoglobin (0.5-1.5) % POC ABG HHb (Measured) (0.0-5.0) % ABG Methemoglobin (0.0-3.0) % Nicolas Test A-a O2 Difference mm/Hg Respiratory Index Hgb O2 Saturation (95.0-98.0) % Vent Mode Mechanical Rate FiO2 % Tidal Volume PEEP Sodium (132-148) mmol/L Potassium (3.6-5.2) mmol/L Chloride (98-107) mmol/L Carbon Dioxide (22-30) mmol/L Anion Gap (10-20) BUN (9-20) mg/dL Creatinine (0.8-1.5) MG/DL Est GFR ( Amer) Est GFR (Non-Af Amer) Random Glucose (75-110) mg/dL Calcium (8.6-10.4) mg/dl Phosphorus (2.5-4.5) mg/dL Magnesium (1.6-2.3) mg/dL Total Bilirubin (0.2-1.3) mg/dL AST (17-59) U/L ALT (21-72) U/L Alkaline Phosphatase (38-126) U/L Total Protein (6.3-8.3) g/dL Albumin (3.5-5.0) g/dL Globulin (2.2-3.9) gm/dL Albumin/Globulin Ratio (1.0-2.1) Random Vancomycin 21.68 ug/mL Laboratory Results - last 24 hr 10/29/16 10/30/16 10/30/16 18:09 04:49 04:58 WBC 14.9 H RBC 2.70 L Hgb 8.7 L Hct 25.8 L MCV 95.4 H D MCH 32.3 H MCHC 33.9 RDW 14.4 Plt Count 62 L MPV 9.6 Neut % (Auto) 94.7 H Lymph % (Auto) 1.4 L Mercer % (Auto) 3.7 Eos % (Auto) 0.0 Baso % (Auto) 0.2 Neut # 14.1 H Lymph # 0.2 L Mercer # 0.6 Eos # 0.0 Baso # 0.0 Neutrophils % (Manual) 96 H Band Neutrophils % 1 Lymphocytes % (Manual) 1 L Monocytes % (Manual) 2 Platelet Estimate Decreased L Polychromasia Slight Macrocytosis (manual) Moderate Plt Function Assay 52 Puncture Site pCO2 pO2 HCO3 ABG pH ABG Total CO2 ABG O2 Saturation ABG Base Excess ABG Hemoglobin ABG Carboxyhemoglobin POC ABG HHb (Measured) ABG Methemoglobin Nicolas Test A-a O2 Difference Respiratory Index Hgb O2 Saturation Vent Mode Mechanical Rate FiO2 Tidal Volume PEEP Sodium Potassium Chloride Carbon Dioxide Anion Gap BUN Creatinine Est GFR ( Amer) Est GFR (Non-Af Amer) Random Glucose Calcium Phosphorus Magnesium Total Bilirubin AST ALT Alkaline Phosphatase Total Protein Albumin Globulin Albumin/Globulin Ratio Random Vancomycin 21.68 10/30/16 10/30/16 10/30/16 04:58 05:25 12:34 WBC RBC Hgb Hct MCV MCH MCHC RDW Plt Count MPV Neut % (Auto) Lymph % (Auto) Mercer % (Auto) Eos % (Auto) Baso % (Auto) Neut # Lymph # Mercer # Eos # Baso # Neutrophils % (Manual) Band Neutrophils % Lymphocytes % (Manual) Monocytes % (Manual) Platelet Estimate Polychromasia Macrocytosis (manual) Plt Function Assay Puncture Site R rad Rra pCO2 43 38 pO2 75 L 78 L HCO3 27.3 25.6 ABG pH 7.42 7.43 ABG Total CO2 29.2 H 26.4 ABG O2 Saturation 98.0 98.4 H ABG Base Excess 3.1 H 0.9 ABG Hemoglobin 9.2 L 8.9 L ABG Carboxyhemoglobin 2.0 H 1.9 H POC ABG HHb (Measured) 1.9 1.6 ABG Methemoglobin 0.9 1.0 Nicolas Test Pos Po A-a O2 Difference 584.0 516.0 Respiratory Index 7.8 6.6 Hgb O2 Saturation 95.2 95.5 Vent Mode Prvc Mechanical Rate 24 FiO2 100.0 90.0 Tidal Volume 500 400 PEEP 5 10 Sodium 146 Potassium 4.0 Chloride 102 Carbon Dioxide 25 Anion Gap 23 H BUN 85 H Creatinine 4.0 H Est GFR ( Amer) 20 Est GFR (Non-Af Amer) 16 Random Glucose 166 H Calcium 6.8 L Phosphorus 8.3 H Magnesium 2.3 Total Bilirubin 2.2 H AST 72 H ALT 65 Alkaline Phosphatase 100 Total Protein 6.3 Albumin 2.6 L Globulin 3.7 Albumin/Globulin Ratio 0.7 L Random Vancomycin Attending/Attestation - Attestation I have personally seen and examined this patient.: Yes I have fully participated in the care of the patient.: Yes I have reviewed all pertinent clinical information: Yes Notes (Text): 10/30/16 15:35 I have seen and examined the patient. Medical records, lab studies, and imaging were reviewed by me and a management plan was formulated on multidisciplinary rounds with resident Dr. Wilde. I agree with their above documented assessment and plan. Patient is in severe ARDS (PAO2/FiO2 <100), started on lung protective ventilation. Continue Vanco after dialysis and Rocephin for strep bacteremia. PICC line insertion was contaminated and removed, will reattempt on Wednesday. Patient dialyzed today, MWF. Permacath placement today. Patient is critically ill but improving slowly. Critical Care Time 35 minutes. Multi-disciplinary rounds were performed with house staff, nursing, speech therapy, respiratory therapy, pharmacy and nutrition with integrated input from the primary team/attending and other consulting services. The documented time is cumulative and includes review of patient data/exams/labs/chart review and examination of the patient on rounds and throughout the day; time is exclusive of any procedures or teaching time.
[2016-10-30 12:38] LABS: ABG ALLEN TEST PO; ARTERIAL BLOOD GAS MODE PRVC; ARTERIAL BLOOD HGB O2 SAT 95.5 % (95.0-98.0); ATERIAL BLOOD GAS PEEP 10; CARBOXYHEMOGLOBIN 1.9 % (0.5-1.5); DRAW SITE RRA; HHB 1.6 % (0.0-5.0)
[2016-10-30] MEDS ORDERED: Vancomycin 1 gm/NS 200 ml 1 GM/200 ML BAG IVPB ONE (13:00)
[2016-10-30] MEDS: Midazolam 50 mg/10 ml 100 MG in Dextrose 5% In Water 80 ML IV SCH (13:23)
--- NOTE | 2016-10-30 13:51 | CP.PCM.PN ---
Subjective - Date & Time of Evaluation Date of Evaluation: 10/30/16 Time of Evaluation: 13:49 - Subjective Subjective: Surgery: Dr. De La Vega Patient remains in ICU. Patient status post pigtail catheter insertion for left sided pneumothorax. Patient remains on vent support. Objective - Vital Signs/Intake and Output Vital Signs (last 24 hours): Temp Pulse Resp BP Pulse Ox 98.9 F 84 25 H 115/74 96 10/30/16 04:00 10/30/16 06:25 10/30/16 06:25 10/30/16 06:25 10/30/16 06:25 Intake and Output: 10/30/16 10/30/16 06:59 18:59 Intake Total 993.8 200 Output Total 1135 Balance -141.2 200 - Medications Medications: Current Medications Acetaminophen (Tylenol 650mg/20.3ml Solution Ud) 650 mg PO Q6 PRN PRN Reason: Temperature Last Admin: 10/25/16 12:15 Dose: 650 mg Acetylcysteine (Acetylcysteine 20%) 4 ml INH RQ6 [facility] Last Admin: 10/30/16 13:11 Dose: 4 ml Albumin Human (Albumin Human 25% (12.5 Gm/50 Ml)) 12.5 gm IV Q8H [facility] Last Admin: 10/27/16 12:01 Dose: Not Given Albuterol Sulfate (Albuterol 0.042% Inhal Nikky (1.25mg/3ml) Ud) 1.25 mg INH RQ6 [facility] Last Admin: 10/30/16 13:10 Dose: 1.25 mg Midazolam HCl 100 mg/ Dextrose 100 mls @ 2.04 mls/hr IV .Q24H [facility]; 0.02 MG/KG/ HR PRN Reason: Protocol Last Admin: 10/30/16 13:23 Dose: 0.06 mg/kg/hr, 6.12 mls/hr Folic Acid 1 mg/ Sodium (Chloride) 100.2 mls @ 60 mls/hr IV DAILY [facility] Last Admin: 10/30/16 10:20 Dose: 60 mls/hr Dexmedetomidine HCl 400 mcg/ (Sodium Chloride) 100 mls @ 5.1 mls/hr IV TITR PRN ; Protocol; 0.2 MCG/KG/HR PRN Reason: Agitation Last Admin: 10/30/16 10:19 Dose: 0.7 mcg/kg/hr, 17.85 mls/hr Norepinephrine Bitartrate 4 mg (/ Dextrose) 254 mls @ 15.24 mls/hr IV .[id number] PRN; Protocol; 4 MCG/MIN PRN Reason: TITRATE PER MD ORDER Last Admin: 10/27/16 12:03 Dose: 4 mcg/min, 15.24 mls/hr Ceftriaxone Sodium 2 gm/ (Sodium Chloride) 100 mls @ 100 mls/hr IVPB Q12H [facility] Last Admin: 10/30/16 10:20 Dose: 100 mls/hr Vancomycin/Sodium Chloride (Vancocin) 1 gm in 200 mls @ 133.333 mls/hr IVPB ONCE ONE Stop: 10/30/16 14:29 Vancomycin HCl 500 mg/ Sodium (Chloride) 100 mls @ 100 mls/hr IVPB ONCE ONE Stop: 11/02/16 13:59 Lactic Acid (Lac-Hydrin 12% Lotion (225 G)) 0 gm EXT BID [facility] Last Admin: 10/30/16 10:22 Dose: 1 applic Methylprednisolone (Solu-Medrol) 40 mg IV Q8H [facility] Last Admin: 10/30/16 13:23 Dose: 40 mg Midazolam HCl (Versed Inj) 2 mg IVP Q4H PRN PRN Reason: Agitation Last Admin: 10/25/16 08:45 Dose: 2 mg Nystatin (Nystop Topical Powder) 1 applic TOP BID [facility] Stop: 11/09/16 10:00 Last Admin: 10/30/16 10:21 Dose: 1 applic Pantoprazole Sodium (Protonix Inj) 40 mg IVP DAILY [facility] Last Admin: 10/30/16 10:21 Dose: 40 mg Sevelamer Carbonate (Renvela) 1.6 gm NG TIDCC [facility] Last Admin: 10/30/16 13:18 Dose: Not Given Thiamine HCl (Vitamin B1 Inj) 100 mg IV DAILY [facility] Last Admin: 10/30/16 10:21 Dose: 100 mg - Labs Labs: 10/30/16 04:58 10/30/16 04:58 PT 17.7 SECONDS (9.7-12.2) H 10/29/16 06:22 INR 1.6 10/29/16 06:22 APTT 30 SECONDS (21-34) 10/29/16 06:22 - Constitutional Appears: Toxic - ENT Exam ENT Exam: Mucous Membranes Dry - Cardiovascular Exam Cardiovascular Exam: REGULAR RHYTHM. absent: Tachycardia - GI/Abdominal Exam GI & Abdominal Exam: Soft. absent: Distended, Tenderness Assessment and Plan - Assessment and Plan (Free Text) Assessment: 45M w/ acute renal failure on HD through [facility] in right groin Plan: -patient clinically unstable -cont HD through [facility] -will postpone OR until clinically more stable -d/w Dr. Ceferino Larkin PGY3
[2016-10-30] MEDS ORDERED: Sodium Chloride 0.9% 1,000 ML IV ONE ×2 (15:00)
[2016-10-30] MEDS ORDERED: Lidocaine 1% Inj (20ml) ONE (15:12)
[2016-10-30] MEDS ORDERED: Iohexol 240 (50 ml) ONE (15:13)
[2016-10-30] MEDS ORDERED: HEPARIN-NS 5,000 UNITS/500 ML 5,000 UNIT/500 ML BAG IV ONE (15:13)
[2016-10-30] MEDS ORDERED: Propofol 10 mg/ml Inj (20 ML) ONE (15:21)
[2016-10-30] MEDS ORDERED: Rocuronium 10 mg/ml (5 ml) ONE (15:51)
--- NOTE | 2016-10-30 16:08 | CP.PCM.PN ---
Subjective - Date & Time of Evaluation Date of Evaluation: 10/30/16 Time of Evaluation: 08:00 - Subjective Subjective: for pemacath placement iv rx in progress Objective - Vital Signs/Intake and Output Vital Signs (last 24 hours): Temp Pulse Resp BP Pulse Ox 98.1 F 74 18 144/96 H 97 10/30/16 15:27 10/30/16 15:27 10/30/16 15:27 10/30/16 15:27 10/30/16 14:32 Intake and Output: 10/30/16 10/30/16 06:59 18:59 Intake Total 993.8 957.7 Output Total 1135 230 Balance -141.2 727.7 - Medications Medications: Current Medications Acetaminophen (Tylenol 650mg/20.3ml Solution Ud) 650 mg PO Q6 PRN PRN Reason: Temperature Last Admin: 10/25/16 12:15 Dose: 650 mg Acetylcysteine (Acetylcysteine 20%) 4 ml INH RQ6 [facility] Last Admin: 10/30/16 13:11 Dose: 4 ml Albumin Human (Albumin Human 25% (12.5 Gm/50 Ml)) 12.5 gm IV Q8H [facility] Last Admin: 10/27/16 12:01 Dose: Not Given Albuterol Sulfate (Albuterol 0.042% Inhal Nikky (1.25mg/3ml) Ud) 1.25 mg INH RQ6 [facility] Last Admin: 10/30/16 13:10 Dose: 1.25 mg Midazolam HCl 100 mg/ Dextrose 100 mls @ 2.04 mls/hr IV .Q24H [facility]; 0.02 MG/KG/ HR PRN Reason: Protocol Last Admin: 10/30/16 13:23 Dose: 0.06 mg/kg/hr, 6.12 mls/hr Folic Acid 1 mg/ Sodium (Chloride) 100.2 mls @ 60 mls/hr IV DAILY [facility] Last Admin: 10/30/16 10:20 Dose: 60 mls/hr Dexmedetomidine HCl 400 mcg/ (Sodium Chloride) 100 mls @ 5.1 mls/hr IV TITR PRN ; Protocol; 0.2 MCG/KG/HR PRN Reason: Agitation Last Admin: 10/30/16 15:09 Dose: 0.7 mcg/kg/hr, 17.85 mls/hr Norepinephrine Bitartrate 4 mg (/ Dextrose) 254 mls @ 15.24 mls/hr IV .[id number] PRN; Protocol; 4 MCG/MIN PRN Reason: TITRATE PER MD ORDER Last Admin: 10/27/16 12:03 Dose: 4 mcg/min, 15.24 mls/hr Ceftriaxone Sodium 2 gm/ (Sodium Chloride) 100 mls @ 100 mls/hr IVPB Q12H [facility] Last Admin: 10/30/16 10:20 Dose: 100 mls/hr Vancomycin HCl 500 mg/ Sodium (Chloride) 100 mls @ 100 mls/hr IVPB ONCE ONE Stop: 11/02/16 13:59 Lactic Acid (Lac-Hydrin 12% Lotion (225 G)) 0 gm EXT BID [facility] Last Admin: 10/30/16 10:22 Dose: 1 applic Methylprednisolone (Solu-Medrol) 40 mg IV Q8H [facility] Last Admin: 10/30/16 13:23 Dose: 40 mg Midazolam HCl (Versed Inj) 2 mg IVP Q4H PRN PRN Reason: Agitation Last Admin: 10/25/16 08:45 Dose: 2 mg Nystatin (Nystop Topical Powder) 1 applic TOP BID [facility] Stop: 11/09/16 10:00 Last Admin: 10/30/16 10:21 Dose: 1 applic Pantoprazole Sodium (Protonix Inj) 40 mg IVP DAILY [facility] Last Admin: 10/30/16 10:21 Dose: 40 mg Sevelamer Carbonate (Renvela) 1.6 gm NG TIDCC [facility] Last Admin: 10/30/16 13:18 Dose: Not Given Thiamine HCl (Vitamin B1 Inj) 100 mg IV DAILY [facility] Last Admin: 10/30/16 10:21 Dose: 100 mg - Labs Labs: 10/30/16 04:58 10/30/16 04:58 PT 17.7 SECONDS (9.7-12.2) H 10/29/16 06:22 INR 1.6 10/29/16 06:22 APTT 30 SECONDS (21-34) 10/29/16 06:22 - Constitutional Appears: Confused, Chronically Ill - Head Exam Head Exam: NORMOCEPHALIC - Eye Exam Eye Exam: absent: Scleral icterus - ENT Exam ENT Exam: Mucous Membranes Dry - Neck Exam Neck Exam: absent: Lymphadenopathy - Respiratory Exam Respiratory Exam: Decreased Breath Sounds, Rhonchi - Cardiovascular Exam Cardiovascular Exam: REGULAR RHYTHM - GI/Abdominal Exam GI & Abdominal Exam: Distended Assessment and Plan (1) Seizure disorder Status: Acute (2) Seizure disorder Status: Acute (3) Sepsis Status: Acute (4) Sepsis Status: Acute (5) Alcohol withdrawal Status: Acute (6) Hypoxemia Status: Acute (7) Pneumonia Status: Acute (8) Respiratory distress Status: Acute (9) Psoriasis Status: Acute
--- NOTE | 2016-10-30 16:22 | PCM.SURG1 ---
Surgeon's Initial Post Op Note - Surgeon's Notes Surgeon: Emmett De La Vega MD Polyethylene Bag Machine Operator: Nata Vega PGY1; Jhony Lamb OMS3 Type of Anesthesia: General Endo Pre-Operative Diagnosis: End stage renal disease requiring chronic dialysis Operative Findings: See op report Post-Operative Diagnosis: End stage renal disease requiring chronic dialysis Operation Performed: Right internal jugular permacath placement Specimen/Specimens Removed: none Estimated Blood Loss: EBL {In ML}: 10 Blood Products Given: N/A Drains Used: Chest Tubes Post-Op Condition: Poor Date of Surgery/Procedure: 10/30/16 (patient had chest tube prior to procedure ) Time of Surgery/Procedure: 16:22
--- NOTE | 2016-10-30 16:50 | RAD ---
HISTORY: s/p RIJ permacath insertion COMPARISON: Multiple serial examinations preceding the most recent study: October 30, 2016. Performed 07:18. FINDINGS: LUNGS: Stable multifocal infiltrates. PLEURA: No significant interval change compared to the prior examination(s). CARDIOVASCULAR: No radiographic findings to suggest acute or significant cardiovascular disease. Satisfactory position of recently placed PermCath right IJ approach. No adverse findings pneumothorax identified. OSSEOUS STRUCTURES: No significant abnormalities. VISUALIZED UPPER ABDOMEN: Normal. OTHER FINDINGS: Stable position of endotracheal tube. IMPRESSION: Status post PermCath placement. Catheter in satisfactory position. No pneumothorax.
[2016-10-31] MEDS: Dexmedetomidine Hydrochloride 400 MCG in Sodium Chloride 0.9% 96 ML IV PRN ×2 (01:05→06:00)
--- NOTE | 2016-10-31 02:13 | OP ---
PROCEDURE DATE: 10/30/2016 PREOPERATIVE DIAGNOSIS: Renal failure. POSTOPERATIVE DIAGNOSIS: Renal failure. PROCEDURE CARRIED OUT: Placement of PermCath, right jugular vein with C-arm fluoroscopy and ultrasound-guided puncture. SURGEON: Dr. De La Vega. WOOD PRODUCTS MANUFACTURER: Dr. Vega, resident. ANESTHESIOLOGIST: Dr. Schneider. INDICATIONS: The patient is a young man with renal insufficiency, requiring dialysis. OPERATIVE FINDINGS: Preoperatively, the patient had low platelet count of 61,000; also an indwelling triple lumen catheter was placed higher up in the jugular vein. He had other access in other vessels. DESCRIPTION OF PROCEDURE: Using ultrasound guidance in a cleaned sterile field, using micropuncture technique and ultrasound guidance, we punctured the right jugular vein. Under fluoroscopic control, a guidewire was advanced centrally. This was exchanged for different wire. After this, we draped the catheter in the subcutaneous tunnel with the tunnel catheter and brought it out on the chest wall. This was flushed with heparinized saline with good return. Blood loss for the procedure was 5 mL. Operation carried out; PermCath, right jugular vein with C-arm fluoroscopy, ultrasound-guided puncture. Ultrasound images of the neck shows the vein was approximately 12 cm in diameter with normal compressibility. There is evidence of triple lumen catheter. Emmett De La Vega Jr., MD
[2016-10-31] MEDS: Acetylcysteine 20% Inhal Soln (4ml) INH SCH ×4 (02:28→19:13)
[2016-10-31] MEDS: Albuterol 0.042% Inhal Sol (1.25 mg/3 mL) UD INH SCH ×2 (02:29→07:48)
[2016-10-31] MEDS: MethylPREDNISolone 40 mg Vial IV SCH ×3 (02:45→19:03)
[2016-10-31] MEDS: Midazolam 50 mg/10 ml 100 MG in Dextrose 5% In Water 80 ML IV SCH (05:44)
[2016-10-31 05:51] LABS: ABG ALLEN TEST POS; ABG MECHANICAL RATE 24; ARTERIAL BLOOD GAS MODE PRVC; ARTERIAL BLOOD HGB O2 SAT 95.2 % (95.0-98.0); ATERIAL BLOOD GAS PEEP 10; CARBOXYHEMOGLOBIN 2.4 % (0.5-1.5); DRAW SITE R RAD; HHB 1.5 % (0.0-5.0); METHEMOGLOBIN 0.9 % (0.0-3.0)
[2016-10-31 06:43] LABS: BASO % 0.1 % (0.0-2.0); HEMATOCRIT 25.4 % (35.0-51.0); LYMPH # 0.2 K/uL (1.0-4.3); LYMPH % 1.4 % (20.0-40.0); MEAN CELL VOLUME 97.1 fL (80.0-94.0); MEAN CORPUSCULAR HEMOGLOBIN 32.1 pg (27.0-31.0); MEAN CORPUSCULAR HGB CONC 33.1 g/dL (33.0-37.0); MEAN PLATELET VOLUME 10.2 fL (7.2-11.7); MONO # 0.4 K/uL (0.0-0.8); MONO % 2.3 % (0.0-10.0); PLATELET COUNT 79 K/uL (130-400); RED CELL DISTRIBUTION WIDTH 14.4 % (11.5-14.5); WHITE BLOOD COUNT 16.5 K/uL (4.8-10.8)
[2016-10-31 06:58] LABS: POTASSIUM 4.1 mmol/L (3.6-5.2)
[2016-10-31 07:00] LABS: ALB/GLOB RATIO 0.7 (1.0-2.1); BILIRUBIN,TOTAL 2.2 mg/dL (0.2-1.3); PHOSPHOROUS 7.2 mg/dL (2.5-4.5); TOTAL PROTEIN 6.7 g/dL (6.3-8.3)
[2016-10-31 07:01] LABS: CALCIUM 6.9 mg/dl (8.6-10.4); MAGNESIUM 2.2 mg/dL (1.6-2.3)
[2016-10-31 08:21] LABS: NEUTROPHIL 96 % (50-75); TOTAL CELLS COUNTED 100
--- NOTE | 2016-10-31 09:12 | RAD ---
HISTORY: vented/chest tube COMPARISON: 10/30/2016 FINDINGS: Thin endotracheal tube terminates 4 cm proximal to the sarha. The nasogastric tube terminates in the stomach. The right-sided dialysis catheter terminates in the right atrium. The right IJV line terminates in the SVC. LUNGS: There is interval mild improvement in pulmonary venous congestion and interstitial pulmonary edema. Again seen is bibasilar atelectasis. PLEURA: Stable small pleural effusions. No pneumothorax. CARDIOVASCULAR: Normal. OSSEOUS STRUCTURES: No significant abnormalities. VISUALIZED UPPER ABDOMEN: Normal. OTHER FINDINGS: None. IMPRESSION: Interval improvement in pulmonary venous congestion and interstitial edema. Stable position of lines and tubes.
--- NOTE | 2016-10-31 10:00 | CP.PCM.PN ---
Subjective - Date & Time of Evaluation Date of Evaluation: 10/31/16 Time of Evaluation: 09:57 - Subjective Subjective: seen and examined on vent s/p permacath overnight Objective - Vital Signs/Intake and Output Vital Signs (last 24 hours): Temp Pulse Resp BP Pulse Ox 98.8 F 74 18 135/80 99 10/31/16 04:00 10/31/16 07:00 10/31/16 07:00 10/31/16 06:33 10/31/16 07:00 Intake and Output: 10/31/16 10/31/16 06:59 18:59 Intake Total 1319.6 60 Output Total 435 110 Balance 884.6 -50 - Medications Medications: Current Medications Acetaminophen (Tylenol 650mg/20.3ml Solution Ud) 650 mg PO Q6 PRN PRN Reason: Temperature Last Admin: 10/25/16 12:15 Dose: 650 mg Acetylcysteine (Acetylcysteine 20%) 4 ml INH RQ6 [facility] Last Admin: 10/31/16 07:48 Dose: 4 ml Albumin Human (Albumin Human 25% (12.5 Gm/50 Ml)) 12.5 gm IV Q8H [facility] Last Admin: 10/27/16 12:01 Dose: Not Given Midazolam HCl 100 mg/ Dextrose 100 mls @ 2.04 mls/hr IV .Q24H [facility]; 0.02 MG/KG/ HR PRN Reason: Protocol Last Admin: 10/31/16 05:44 Dose: 0.06 mg/kg/hr, 6.12 mls/hr Folic Acid 1 mg/ Sodium (Chloride) 100.2 mls @ 60 mls/hr IV DAILY [facility] Last Admin: 10/30/16 10:20 Dose: 60 mls/hr Dexmedetomidine HCl 400 mcg/ (Sodium Chloride) 100 mls @ 5.1 mls/hr IV TITR PRN ; Protocol; 0.2 MCG/KG/HR PRN Reason: Agitation Last Admin: 10/31/16 06:00 Dose: 0.9 mcg/kg/hr, 22.95 mls/hr Norepinephrine Bitartrate 4 mg (/ Dextrose) 254 mls @ 15.24 mls/hr IV .[id number] PRN; Protocol; 4 MCG/MIN PRN Reason: TITRATE PER MD ORDER Last Admin: 10/27/16 12:03 Dose: 4 mcg/min, 15.24 mls/hr Ceftriaxone Sodium 2 gm/ (Sodium Chloride) 100 mls @ 100 mls/hr IVPB Q12H [facility] Last Admin: 10/30/16 21:47 Dose: 100 mls/hr Vancomycin HCl 500 mg/ Sodium (Chloride) 100 mls @ 100 mls/hr IVPB ONCE ONE Stop: 11/02/16 13:59 Propofol (Diprivan) 1,000 mg in 100 mls @ 2.775 mls/hr IV .Q24H PRN; Protocol; 5 MCG/KG/MIN PRN Reason: TITRATE PER MD ORDER Lactic Acid (Lac-Hydrin 12% Lotion (225 G)) 0 gm EXT BID [facility] Last Admin: 10/30/16 18:54 Dose: 1 applic Methylprednisolone (Solu-Medrol) 40 mg IV Q8H [facility] Last Admin: 10/31/16 02:45 Dose: 40 mg Midazolam HCl (Versed Inj) 2 mg IVP Q4H PRN PRN Reason: Agitation Last Admin: 10/25/16 08:45 Dose: 2 mg Nystatin (Nystop Topical Powder) 1 applic TOP BID [facility] Stop: 11/09/16 10:00 Last Admin: 10/30/16 18:54 Dose: 1 applic Pantoprazole Sodium (Protonix Inj) 40 mg IVP DAILY [facility] Last Admin: 10/30/16 10:21 Dose: 40 mg Thiamine HCl (Vitamin B1 Inj) 100 mg IV DAILY [facility] Last Admin: 10/30/16 10:21 Dose: 100 mg - Labs Labs: 10/31/16 06:34 10/31/16 06:34 PT 17.7 SECONDS (9.7-12.2) H 10/29/16 06:22 INR 1.6 10/29/16 06:22 APTT 30 SECONDS (21-34) 10/29/16 06:22 - Constitutional Appears: Agitated - Head Exam Head Exam: ATRAUMATIC - Eye Exam Eye Exam: Normal appearance - ENT Exam Additional comments: et tube - Neck Exam Neck Exam: Normal Inspection - Respiratory Exam Additional comments: coarse bs - Cardiovascular Exam Cardiovascular Exam: +S1, +S2 - GI/Abdominal Exam GI & Abdominal Exam: Normal Bowel Sounds - Extremities Exam Additional comments: trace edema - Neurological Exam Additional comments: agitated - Psychiatric Exam Psychiatric exam: Agitated - Skin Skin Exam: Normal Color Assessment and Plan - Assessment and Plan (Free Text) Assessment: ARF / Pneumonia / Sepsis/ Hypernatremia / hyperphosphatemia plan: RUPALI - will dialyze again today - will attempt to take off 2 kg to reduce all input suggest consider d/c albumin not clear recc removal of groin line hd cathether will inc renvela to 2400 mg recc increase free water flushes
[2016-10-31] MEDS: cefTRIAXone 2 GM in Sodium Chloride 0.9% 100 ML IVPB SCH ×2 (10:28→22:00)
[2016-10-31] MEDS: Thiamine 100 mg/ml Inj IV SCH (10:28)
[2016-10-31] MEDS: Propofol 10 mg/ml 1,000 MG/100 ML VIAL IV PRN ×4 (10:29→23:50)
[2016-10-31] MEDS: Ammonium Lactate 12% Lotion (225 g) EXT SCH ×2 (10:29→19:04)
--- NOTE | 2016-10-31 10:46 | CP.PCM.PN ---
Subjective - Date & Time of Evaluation Date of Evaluation: 10/31/16 Time of Evaluation: 10:43 - Subjective Subjective: Surgery for dr. De La Vega Pt s&e. Pt is intubated and sedated. Tolerated HD with RIJ permacath. R fem shiley in place. Objective - Vital Signs/Intake and Output Vital Signs (last 24 hours): Temp Pulse Resp BP Pulse Ox 98.8 F 74 18 135/80 99 10/31/16 04:00 10/31/16 07:00 10/31/16 07:00 10/31/16 06:33 10/31/16 07:00 Intake and Output: 10/31/16 10/31/16 06:59 18:59 Intake Total 1319.6 60 Output Total 435 110 Balance 884.6 -50 - Medications Medications: Current Medications Acetaminophen (Tylenol 650mg/20.3ml Solution Ud) 650 mg PO Q6 PRN PRN Reason: Temperature Last Admin: 10/25/16 12:15 Dose: 650 mg Acetylcysteine (Acetylcysteine 20%) 4 ml INH RQ6 [facility] Last Admin: 10/31/16 07:48 Dose: 4 ml Albumin Human (Albumin Human 25% (12.5 Gm/50 Ml)) 12.5 gm IV Q8H [facility] Last Admin: 10/27/16 12:01 Dose: Not Given Folic Acid 1 mg/ Sodium (Chloride) 100.2 mls @ 60 mls/hr IV DAILY [facility] Last Admin: 10/31/16 10:29 Dose: 60 mls/hr Norepinephrine Bitartrate 4 mg (/ Dextrose) 254 mls @ 15.24 mls/hr IV .[id number] PRN; Protocol; 4 MCG/MIN PRN Reason: TITRATE PER MD ORDER Last Admin: 10/27/16 12:03 Dose: 4 mcg/min, 15.24 mls/hr Ceftriaxone Sodium 2 gm/ (Sodium Chloride) 100 mls @ 100 mls/hr IVPB Q12H [facility] Last Admin: 10/31/16 10:28 Dose: 100 mls/hr Vancomycin HCl 500 mg/ Sodium (Chloride) 100 mls @ 100 mls/hr IVPB ONCE ONE Stop: 11/02/16 13:59 Propofol (Diprivan) 1,000 mg in 100 mls @ 2.775 mls/hr IV .Q24H PRN; Protocol; 5 MCG/KG/MIN PRN Reason: TITRATE PER MD ORDER Last Admin: 10/31/16 10:29 Dose: 18.01 mcg/kg/min, 10 mls/hr Lactic Acid (Lac-Hydrin 12% Lotion (225 G)) 0 gm EXT BID [facility] Last Admin: 10/31/16 10:29 Dose: 1 applic Methylprednisolone (Solu-Medrol) 40 mg IV Q8H [facility] Last Admin: 10/31/16 10:28 Dose: 40 mg Midazolam HCl (Versed Inj) 2 mg IVP Q4H PRN PRN Reason: Agitation Last Admin: 10/25/16 08:45 Dose: 2 mg Nystatin (Nystop Topical Powder) 1 applic TOP BID [facility] Stop: 11/09/16 10:00 Last Admin: 10/31/16 10:29 Dose: 1 applic Pantoprazole Sodium (Protonix Inj) 40 mg IVP DAILY [facility] Last Admin: 10/31/16 10:28 Dose: 40 mg Sevelamer Carbonate (Renvela) 2.4 gm NG TIDCC [facility] Thiamine HCl (Vitamin B1 Inj) 100 mg IV DAILY [facility] Last Admin: 10/31/16 10:28 Dose: 100 mg - Labs Labs: 10/31/16 06:34 10/31/16 06:34 PT 17.7 SECONDS (9.7-12.2) H 10/29/16 06:22 INR 1.6 10/29/16 06:22 APTT 30 SECONDS (21-34) 10/29/16 06:22 - Constitutional Appears: In Acute Distress - Head Exam Head Exam: NORMAL INSPECTION - ENT Exam ENT Exam: Mucous Membranes Moist Additional comments: intubated - Neck Exam Neck Exam: Full ROM, Normal Inspection. absent: Lymphadenopathy Additional comments: RIJ permacath in lace: no signs of infection. No bleeding. functioning - Respiratory Exam Respiratory Exam: Clear to Ausculation Bilateral, NORMAL BREATHING PATTERN - Cardiovascular Exam Cardiovascular Exam: REGULAR RHYTHM, +S1, +S2. absent: Murmur - GI/Abdominal Exam GI & Abdominal Exam: Soft, Normal Bowel Sounds. absent: Distended, Tenderness - Extremities Exam Additional comments: R groin shiley in place. no signs of infectoin Assessment and Plan - Assessment and Plan (Free Text) Assessment: POD 1 s/p RIJ permacath insertion tolerated HD. -Ok to remove shiley on R groin -continue using Permacath DW Dr. De La Vega
--- NOTE | 2016-10-31 11:07 | CP.PCM.PN ---
Subjective - Date & Time of Evaluation Date of Evaluation: 10/31/16 Time of Evaluation: 11:00 - Subjective Subjective: Hospitalist Progress Note (Patient was seen and examined at 11:00 AM 10/31/16) 45 year old male who presented to the ER here at [facility] on 10/21/16 intoxicated with complaints of cough and abdominal pain. He was found to be hypotensive, hypoxic, with RUL/RML Pneumonia. He eventually required intubation and ventilator support. He was also found to be in Acute Renal Failure and started receiving HD through Right Femoral Access on Wednesday10/23/16, 10/26, and 10/27/16. He was for Right Perm Cath with Dr. De La Vega for 10/28/16 however as his platelets declined, this was put on hold and patient was transfused 2 bags of platelets as per ICU Team. He became hypotensive on and therefore was started on Norepinephrine Drip, Albumin, and Solumedrol. Chest X Ray on 10/29/16 showed Left Pneumothorax and Student Services Advisor has placed a left sided chest tube pigtail catheter and repeat Chest X Ray showed re -expansion of the Left Lung. He had Right Perm Cath and Left Arm PICC Line placed 10/30/16. His prognosis remains guarded. Patient is under sedation and intubated and therefore could not answer ROS questions. HEENT: NCA, Pupils are pinpoint/round/reactive to light, NO lymphadenopathy, NO JVD, NO thyromegaly, Nasal turbinates are nonerythematous/nonedematous/moist, Oral mucosa is dry. Cardio: NS1 and NS2, NO M/R/G (please note that this exam is limited by interference of diffuse course breath sounds) Resp: Course breath sounds diffusely GI: BSx4 are reduced in all 4 quadrants, Distention, Liver and Spleen could not be adequately palpated secondary to distention, Soft Ext: Pulses are strong and equal, Capillary Refill is 2 seconds, NO cyanosis, NO edema, Patches of Psoriasis on the bilateral elbows/bilateral anterior lower legs Neuro: exam not possible Skin: Bilateral Groin fungal rash Assessment and Plan (1) Alcohol withdrawal Assessment & Plan: Patient with history of DTs since his admission. Management in ICU. Patient is currently intubated and sedated. Status: Acute (2) Hypoxemia/Respiratory Distress Assessment & Plan: Patient is intubated and on ventilator support. Not a candidate for weaning at this time. Dexmedetomidine 50 ml/hr Midazolam 100 ml/hr Status: Acute (3). Left Pneumothorax Chest X Ray 10/27/16 shows dense confluent consolidative changes throughout both lungs with associated bilateral pleural effusions. Chest X Ray on 10/29/16 showed Left Pneumothorax and Student Services Advisor has placed a left sided chest tube with repeat Chest X Ray showing re-expansion of the Left Lung. Chest X Ray 10/31/16 showed interval improvement in pulmonary venous congestion and interstitial edema with stable position of lines and tubes. (4)Sepsis Secondary to Pneumonia and Bacteremia Assessment & Plan: X-ray chest report reviewed 10/24/16 and 10/26/16. Progression of infiltrates throughout the right upper and lower lobe treated infiltrate changes are also seen in the left middle to left lower lung cameron. Bilateral effusions. Chest X Ray 10/27/16 shows dense confluent consolidative changes throughout both lungs with associated bilateral pleural effusions. Chest X Ray on 10/29/16 showed Left Pneumothorax and Student Services Advisor has placed a left sided chest tube with repeat Chest X Ray on 10/29/16 showing re-expansion of the Left Lung. CT Angio Chest 10/23/16 showed NO PE, extensive pulmonary consolidation bilateral lower lobes and RUL, patchy infiltrates NING and RML, bilateral pleural effusions, hepatic cirrhosis, and ascites. Patient has Strep pneumoniae bacteremia as per Blood Culture 10/21/16 and Coag Neg Staph (which may be a contaminant) on 1/2 Blood Cultures from 10/26/16. Repeat Blood Culture on 10/28/16 is Negative To Date. Ceftriaxone 2 gm IV 1x/day Vancomycin 1 gm IV x 1 dose given by ICU team 10/24/[address] Aleyda Bowers Status: Acute (5). Hypotension Albumin 12.5 gm IV Q8H Solumedrol 40 mg IV Q8H Norepinephrine Drip (6) Seizure disorder Assessment & Plan: Secondary to alcohol withdrawal. Patient is currently intubated and sedated. No seizures reported. Neurology Dr. Pineda Status: Acute (7) Thrombocytopenia Assessment & Plan: Likely Secondary to alcohol abuse. Pepcid was discontinued 10/26/16 as this can worsen thrombocytopenia and Protonix 40 mg IV 1x/day was ordered 10/26/16 Platelets today 10/31/16 are at 79 He received 1 bag of platelets 10/28/16 as per ICU Team Platelet 1 bag ordered for 9 PM 10/29/16 as these platelets would have Heparin Abs were also ordered on 10/30/16 Status: Chronic (8) Psoriasis Status: Acute (9) Renal failure Assessment & Plan: Renal U/S 10/24/16 showed nonobstructing calculus upper/midpole Right Kidney and Abdominal Ascites Hepatitis Panel is negative Patient was receiving HD through Right Femoral Catheter and Right Perm Cath was placed by Dr. De La Vega 10/30/16 . For HD on 10/31/16 through Right Chest Perm Cath The Right Femoral HD Catheter was removed by me with the help of Nurse Quan on 10/31/16. There was some bleeding but stopped with application of pressure for 2 minutes. Status: Acute (10). Anemia Likely Secondary to Chronic Alcohol Use and Renal Failure Stool Occult Blood 10/21/16 is negative HgB/Hct today 10/31/16 is 8.4// Continue to monitor (11). Hypokalemia Resolved (12). Bilateral Groin Fungal Rash Nystatin Powder 2x/day for 2 weeks started on 10/26/16 (13). Prophylactic Measures Bilateral SCDs Protonix 40 mg IV 1x/day Nepro Carbsteady via NGT Aspart ISS low dose added NO anticoagulation considering the Anemia and Thrombocytopenia Von Burkett D.O. Objective - Vital Signs/Intake and Output Vital Signs (last 24 hours): Temp Pulse Resp BP Pulse Ox 98.8 F 74 18 135/80 99 10/31/16 04:00 10/31/16 07:00 10/31/16 07:00 10/31/16 06:33 10/31/16 07:00 Intake and Output: 10/31/16 10/31/16 06:59 18:59 Intake Total 1319.6 60 Output Total 435 110 Balance 884.6 -50 - Medications Medications: Current Medications Acetaminophen (Tylenol 650mg/20.3ml Solution Ud) 650 mg PO Q6 PRN PRN Reason: Temperature Last Admin: 10/25/16 12:15 Dose: 650 mg Acetylcysteine (Acetylcysteine 20%) 4 ml INH RQ6 MIRA Last Admin: 10/31/16 07:48 Dose: 4 ml Albumin Human (Albumin Human 25% (12.5 Gm/50 Ml)) 12.5 gm IV Q8H [facility] Last Admin: 10/27/16 12:01 Dose: Not Given Folic Acid 1 mg/ Sodium (Chloride) 100.2 mls @ 60 mls/hr IV DAILY [facility] Last Admin: 10/31/16 10:29 Dose: 60 mls/hr Norepinephrine Bitartrate 4 mg (/ Dextrose) 254 mls @ 15.24 mls/hr IV .[id number] PRN; Protocol; 4 MCG/MIN PRN Reason: TITRATE PER MD ORDER Last Admin: 10/27/16 12:03 Dose: 4 mcg/min, 15.24 mls/hr Ceftriaxone Sodium 2 gm/ (Sodium Chloride) 100 mls @ 100 mls/hr IVPB Q12H [facility] Last Admin: 10/31/16 10:28 Dose: 100 mls/hr Vancomycin HCl 500 mg/ Sodium (Chloride) 100 mls @ 100 mls/hr IVPB ONCE ONE Stop: 11/02/16 13:59 Propofol (Diprivan) 1,000 mg in 100 mls @ 2.775 mls/hr IV .Q24H PRN; Protocol; 5 MCG/KG/MIN PRN Reason: TITRATE PER MD ORDER Last Admin: 10/31/16 10:29 Dose: 18.01 mcg/kg/min, 10 mls/hr Lactic Acid (Lac-Hydrin 12% Lotion (225 G)) 0 gm EXT BID [facility] Last Admin: 10/31/16 10:29 Dose: 1 applic Methylprednisolone (Solu-Medrol) 40 mg IV Q8H [facility] Last Admin: 10/31/16 10:28 Dose: 40 mg Midazolam HCl (Versed Inj) 2 mg IVP Q4H PRN PRN Reason: Agitation Last Admin: 10/25/16 08:45 Dose: 2 mg Nystatin (Nystop Topical Powder) 1 applic TOP BID [facility] Stop: 11/09/16 10:00 Last Admin: 10/31/16 10:29 Dose: 1 applic Pantoprazole Sodium (Protonix Inj) 40 mg IVP DAILY [facility] Last Admin: 10/31/16 10:28 Dose: 40 mg Sevelamer Carbonate (Renvela) 2.4 gm NG TIDCC [facility] Thiamine HCl (Vitamin B1 Inj) 100 mg IV DAILY MIRA Last Admin: 10/31/16 10:28 Dose: 100 mg - Labs Labs: 10/31/16 06:34 10/31/16 06:34 PT 17.7 SECONDS (9.7-12.2) H 10/29/16 06:22 INR 1.6 10/29/16 06:22 APTT 30 SECONDS (21-34) 10/29/16 06:22
[2016-10-31] MEDS: (Novolin R) Insulin Human Regular 100 units/ml vial SC SCH ×3 (12:17→22:35)
[2016-10-31] MEDS: Sevelamer Carb 0.8 gm/Packet NG SCH ×2 (12:17→17:51)
--- NOTE | 2016-10-31 12:58 | CP.CCUPN ---
CCU Subjective - Physician Review Events Since Last Encounter (Free Text): 10/31/16 12:55 Patient seen and examined in the intensive care unit. Case discussed with house staff in the morning rounds Patient remained intubated on ventilatory support requiring high FiO2 of 80% with PEEP of 10 Left pigtail catheter in place, draining minimal fluid with complete resolution of pneumothorax Started on Diprivan for agitation Afebrile CCU Objective - Vital Signs / Intake & Output Intake and Output (Last 8hrs): Intake & Output 10/30/16 10/31/16 10/31/16 22:59 06:59 14:59 Intake Total 1097.3 1004.9 60 Output Total 325 320 110 Balance 772.3 684.9 -50 Weight 203 lb 14.841 oz Intake: IV 200 300 Intake, IV Amount 274.3 234.9 30 Right Internal Jugular 100 Right Proximal Port 49 56 7 Internal Jugular Right jugular TLC medial 125.3 178.9 23 port Tube Feeding 40 220 30 Blood Product 583 Apheresis Platelets Acda 583 Lr Unit [id number] Other 250 Output: Chest Tube Drainage 40 80 Left Mid-Axillary Chest 40 80 Urine 285 320 30 Urethral (Walters) 285 320 30 Stool 0 0 - Physical Exam Head: Positive for: Atraumatic, Normocephalic Mouth: Positive for: Dry Respiratory/Chest: Positive for: Respiratory Distress, Decreased Breath Sounds, Other (intubated ) Cardiovascular: Positive for: Normal S1, S2, Tachycardic Abdomen: Positive for: Distention, Normal Bowel Sounds Genitourinary Male: Positive for: Other (walters in place) Upper Extremity: Negative for: Edema Lower Extremity: Negative for: Edema Neurological: Negative for: GCS=15, Speech Normal (patient is intubated and sedated ) Skin: Positive for: Rashes (scrotal rash ), Other (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, bilateral upper extremities, and in gluteal fold.) Psychiatric: Negative for: Alert (patient is sedated and intubated ) - Medications Active Medications: Active Medications Generic Name Dose Route Start Last Admin Trade Name Freq PRN Reason Stop Dose Admin Acetaminophen 650 mg 10/25/16 11:56 10/25/16 12:15 Tylenol 650mg/20.3ml Solution Ud PO 650 mg Q6 PRN Administration Temperature Acetylcysteine 4 ml 10/29/16 17:30 10/31/16 07:48 Acetylcysteine 20% INH 4 ml RQ6 MIRA Administration Albumin Human 12.5 gm 10/26/16 18:45 10/27/16 12:01 Albumin Human 25% (12.5 Gm/50 Ml) IV Not Given Q8H MIRA Folic Acid 1 mg/ Sodium 100.2 mls @ 60 mls/hr 10/25/16 14:30 10/31/16 10:29 Chloride IV 60 mls/hr DAILY MIRA Administration Norepinephrine Bitartrate 4 mg 254 mls @ 15.24 mls/hr 10/26/16 18:39 12:03 / Dextrose IV 4 mcg/min .[id number] PRN 15.24 mls/hr TITRATE PER MD ORDER Administration Protocol 4 MCG/MIN Ceftriaxone Sodium 2 gm/ 100 mls @ 100 mls/hr 10/27/16 22:00 10/31/16 10:28 Sodium Chloride IVPB 100 mls/hr Q12H MIRA Administration Vancomycin HCl 500 mg/ Sodium 100 mls @ 100 mls/hr 11/02/16 13:00 Chloride IVPB 11/02/16 13:59 ONCE ONE Propofol 1,000 mg in 100 mls @ 2.775 mls/hr 10/31/16 09:51 10/31/16 10:29 Diprivan IV 18.01 mcg/kg/min .Q24H PRN 10 mls/hr TITRATE PER MD ORDER Administration Protocol 5 MCG/KG/MIN Insulin Human Regular 0 unit 10/31/16 11:30 10/31/16 12:17 Novolin R SC 2 unit ACHS MIRA Administration Protocol Lactic Acid 0 gm 10/22/16 13:00 10/31/16 10:29 Lac-Hydrin 12% Lotion (225 G) EXT 1 applic BID MIRA Administration Methylprednisolone 40 mg 10/26/16 18:41 10/31/16 10:28 Solu-Medrol IV 40 mg Q8H MIRA Administration Midazolam HCl 2 mg 10/22/16 19:22 10/25/16 08:45 Versed Inj IVP 2 mg Q4H PRN Administration Agitation Nystatin 1 applic 10/26/16 10:00 10/31/16 10:29 Nystop Topical Powder TOP 11/09/16 10:00 1 applic BID MIRA Administration Pantoprazole Sodium 40 mg 10/26/16 10:00 10/31/16 10:28 Protonix Inj IVP 40 mg DAILY MIRA Administration Sevelamer Carbonate 2.4 gm 10/31/16 09:57 10/31/16 12:17 Renvela NG 2.4 gm TIDCC MIRA Administration Thiamine HCl 100 mg 10/25/16 15:30 10/31/16 10:28 Vitamin B1 Inj IV 100 mg DAILY MIRA Administration - Patient Studies Lab Studies: Microbiology Studies 10/26/16 09:10 Blood Culture - Final Blood NO GROWTH AFTER 5 DAYS Gram Stain - Final TEST NOT PERFORMED 10/28/16 21:00 Blood Culture - Preliminary Blood-During Dialysis NO GROWTH AFTER 48 HOURS 10/28/16 21:30 Blood Culture - Preliminary Blood-During Dialysis NO GROWTH AFTER 48 HOURS Lab Studies 10/31/16 10/31/16 10/31/16 Range/Units 11:42 06:34 06:34 WBC 16.5 H (4.8-10.8) K/uL RBC 2.62 L (4.40-5.90) Mil/uL Hgb 8.4 L (12.0-18.0) g/dL Hct 25.4 L (35.0-51.0) % MCV 97.1 H (80.0-94.0) fL MCH 32.1 H (27.0-31.0) pg MCHC 33.1 (33.0-37.0) g/dL RDW 14.4 (11.5-14.5) % Plt Count 79 L (130-400) K/uL MPV 10.2 (7.2-11.7) fL Neut % (Auto) 96.2 H (50.0-75.0) % Lymph % (Auto) 1.4 L (20.0-40.0) % [place] % (Auto) 2.3 (0.0-10.0) % Eos % (Auto) 0.0 (0.0-4.0) % Baso % (Auto) 0.1 (0.0-2.0) % Neut # 15.9 H (1.8-7.0) K/uL Lymph # 0.2 L (1.0-4.3) K/uL [place] # 0.4 (0.0-0.8) K/uL Eos # 0.0 (0.0-0.7) K/uL Baso # 0.0 (0.0-0.2) K/uL Neutrophils % (Manual) 96 H (50-75) % Band Neutrophils % 1 (0-2) % Lymphocytes % (Manual) 1 L (20-40) % Monocytes % (Manual) 2 (0-10) % Platelet Estimate Decreased L (NORMAL) Polychromasia Slight Hypochromasia (manual) Slight Anisocytosis (manual) Slight Target Cells Slight Puncture Site pCO2 (35-45) mm/Hg pO2 (80-100) mm/Hg HCO3 (21-28) mmol/L ABG pH (7.35-7.45) ABG Total CO2 (22-28) mmol/L ABG O2 Saturation (95-98) % ABG Base Excess (-2.0-3.0) mmol/L ABG Hemoglobin (11.7-17.4) g/dL ABG Carboxyhemoglobin (0.5-1.5) % POC ABG HHb (Measured) (0.0-5.0) % ABG Methemoglobin (0.0-3.0) % Nicolas Test A-a O2 Difference mm/Hg Respiratory Index Hgb O2 Saturation (95.0-98.0) % Vent Mode Mechanical Rate FiO2 % Tidal Volume PEEP Sodium 146 (132-148) mmol/L Potassium 4.1 (3.6-5.2) mmol/L Chloride 103 (98-107) mmol/L Carbon Dioxide 24 (22-30) mmol/L Anion Gap 23 H (10-20) BUN 85 H (9-20) mg/dL Creatinine 3.6 H (0.8-1.5) MG/DL Est GFR ( Amer) 22 Est GFR (Non-Af Amer) 18 POC Glucose (mg/dL) 214 H (65-110) mg/dL Random Glucose 200 H (75-110) mg/dL Calcium 6.9 L (8.6-10.4) mg/dl Phosphorus 7.2 H (2.5-4.5) mg/dL Magnesium 2.2 (1.6-2.3) mg/dL Total Bilirubin 2.2 H (0.2-1.3) mg/dL AST 48 (17-59) U/L ALT 51 (21-72) U/L Alkaline Phosphatase 99 (38-126) U/L Total Protein 6.7 (6.3-8.3) g/dL Albumin 2.7 L (3.5-5.0) g/dL Globulin 4.0 H (2.2-3.9) gm/dL Albumin/Globulin Ratio 0.7 L (1.0-2.1) 10/31/16 Range/Units 05:30 WBC (4.8-10.8) K/uL RBC (4.40-5.90) Mil/uL Hgb (12.0-18.0) g/dL Hct (35.0-51.0) % MCV (80.0-94.0) fL MCH (27.0-31.0) pg MCHC (33.0-37.0) g/dL RDW (11.5-14.5) % Plt Count (130-400) K/uL MPV (7.2-11.7) fL Neut % (Auto) (50.0-75.0) % Lymph % (Auto) (20.0-40.0) % [place] % (Auto) (0.0-10.0) % Eos % (Auto) (0.0-4.0) % Baso % (Auto) (0.0-2.0) % Neut # (1.8-7.0) K/uL Lymph # (1.0-4.3) K/uL [place] # (0.0-0.8) K/uL Eos # (0.0-0.7) K/uL Baso # (0.0-0.2) K/uL Neutrophils % (Manual) (50-75) % Band Neutrophils % (0-2) % Lymphocytes % (Manual) (20-40) % Monocytes % (Manual) (0-10) % Platelet Estimate (NORMAL) Polychromasia Hypochromasia (manual) Anisocytosis (manual) Target Cells Puncture Site R rad pCO2 39 (35-45) mm/Hg pO2 72 L (80-100) mm/Hg HCO3 27.7 (21-28) mmol/L ABG pH 7.46 H (7.35-7.45) ABG Total CO2 28.9 H (22-28) mmol/L ABG O2 Saturation 98.4 H (95-98) % ABG Base Excess 3.6 H (-2.0-3.0) mmol/L ABG Hemoglobin 9.0 L (11.7-17.4) g/dL ABG Carboxyhemoglobin 2.4 H (0.5-1.5) % POC ABG HHb (Measured) 1.5 (0.0-5.0) % ABG Methemoglobin 0.9 (0.0-3.0) % Nicolas Test Pos A-a O2 Difference 450.0 mm/Hg Respiratory Index 6.3 Hgb O2 Saturation 95.2 (95.0-98.0) % Vent Mode Prvc Mechanical Rate 24 FiO2 80.0 % Tidal Volume 400 PEEP 10 Sodium (132-148) mmol/L Potassium (3.6-5.2) mmol/L Chloride (98-107) mmol/L Carbon Dioxide (22-30) mmol/L Anion Gap (10-20) BUN (9-20) mg/dL Creatinine (0.8-1.5) MG/DL Est GFR ( Amer) Est GFR (Non-Af Amer) POC Glucose (mg/dL) (65-110) mg/dL Random Glucose (75-110) mg/dL Calcium (8.6-10.4) mg/dl Phosphorus (2.5-4.5) mg/dL Magnesium (1.6-2.3) mg/dL Total Bilirubin (0.2-1.3) mg/dL AST (17-59) U/L ALT (21-72) U/L Alkaline Phosphatase (38-126) U/L Total Protein (6.3-8.3) g/dL Albumin (3.5-5.0) g/dL Globulin (2.2-3.9) gm/dL Albumin/Globulin Ratio (1.0-2.1) Laboratory Results - last 24 hr 10/31/16 10/31/16 10/31/16 05:30 06:34 06:34 WBC 16.5 H RBC 2.62 L Hgb 8.4 L Hct 25.4 L MCV 97.1 H MCH 32.1 H MCHC 33.1 RDW 14.4 Plt Count 79 L MPV 10.2 Neut % (Auto) 96.2 H Lymph % (Auto) 1.4 L [place] % (Auto) 2.3 Eos % (Auto) 0.0 Baso % (Auto) 0.1 Neut # 15.9 H Lymph # 0.2 L [place] # 0.4 Eos # 0.0 Baso # 0.0 Neutrophils % (Manual) 96 H Band Neutrophils % 1 Lymphocytes % (Manual) 1 L Monocytes % (Manual) 2 Platelet Estimate Decreased L Polychromasia Slight Hypochromasia (manual) Slight Anisocytosis (manual) Slight Target Cells Slight Puncture Site R rad pCO2 39 pO2 72 L HCO3 27.7 ABG pH 7.46 H ABG Total CO2 28.9 H ABG O2 Saturation 98.4 H ABG Base Excess 3.6 H ABG Hemoglobin 9.0 L ABG Carboxyhemoglobin 2.4 H POC ABG HHb (Measured) 1.5 ABG Methemoglobin 0.9 Nicolas Test Pos A-a O2 Difference 450.0 Respiratory Index 6.3 Hgb O2 Saturation 95.2 Vent Mode Prvc Mechanical Rate 24 FiO2 80.0 Tidal Volume 400 PEEP 10 Sodium 146 Potassium 4.1 Chloride 103 Carbon Dioxide 24 Anion Gap 23 H BUN 85 H Creatinine 3.6 H Est GFR ( Amer) 22 Est GFR (Non-Af Amer) 18 POC Glucose (mg/dL) Random Glucose 200 H Calcium 6.9 L Phosphorus 7.2 H Magnesium 2.2 Total Bilirubin 2.2 H AST 48 ALT 51 Alkaline Phosphatase 99 Total Protein 6.7 Albumin 2.7 L Globulin 4.0 H Albumin/Globulin Ratio 0.7 L 10/31/16 11:42 WBC RBC Hgb Hct MCV MCH MCHC RDW Plt Count MPV Neut % (Auto) Lymph % (Auto) [place] % (Auto) Eos % (Auto) Baso % (Auto) Neut # Lymph # [place] # Eos # Baso # Neutrophils % (Manual) Band Neutrophils % Lymphocytes % (Manual) Monocytes % (Manual) Platelet Estimate Polychromasia Hypochromasia (manual) Anisocytosis (manual) Target Cells Puncture Site pCO2 pO2 HCO3 ABG pH ABG Total CO2 ABG O2 Saturation ABG Base Excess ABG Hemoglobin ABG Carboxyhemoglobin POC ABG HHb (Measured) ABG Methemoglobin Nicolas Test A-a O2 Difference Respiratory Index Hgb O2 Saturation Vent Mode Mechanical Rate FiO2 Tidal Volume PEEP Sodium Potassium Chloride Carbon Dioxide Anion Gap BUN Creatinine Est GFR ( Amer) Est GFR (Non-Af Amer) POC Glucose (mg/dL) 214 H Random Glucose Calcium Phosphorus Magnesium Total Bilirubin AST ALT Alkaline Phosphatase Total Protein Albumin Globulin Albumin/Globulin Ratio Review of Systems - Review of Systems Systems not reviewed;Unavailable: Intubated Critical Care Progress Note - Ventilator Checklist Head of Bed 30 Degrees: Yes Daily Sedation Vacation: No Daily Spontaneous Breathing Trial: No PUD Prophalyxis: Yes DVT Prophylaxis: Yes - Vent Settings MODE:: PRVC Assessment/Plan (1) Acute respiratory failure with hypoxemia Current Visit: Yes Status: Acute Comment: Continue ventilatory support Picture consistent with ARDS Low titer volume Reduce PEEP because of left pneumothorax Continue with pigtail catheter Continue with IV antibiotics Reduce FiO2 as tolerated no waening as patient is requiring high FiO2 (2) Acute renal failure (ARF) Current Visit: Yes Status: Acute Comment: Continue hemodialysis (3) Pneumonia Current Visit: Yes Status: Acute Comment: Continue antibiotics as per infectious disease
[2016-10-31] MEDS: Albuterol 0.083% Inhal Sol (2.5 mg/3 mL) UD INH SCH ×2 (13:37→19:13)
[2016-11-01] MEDS: Albuterol 0.083% Inhal Sol (2.5 mg/3 mL) UD INH SCH ×4 (01:46→19:47)
[2016-11-01] MEDS: Acetylcysteine 20% Inhal Soln (4ml) INH SCH ×5 (01:47→19:47)
[2016-11-01] MEDS: MethylPREDNISolone 40 mg Vial IV SCH ×3 (02:39→17:57)
[2016-11-01] MEDS: Propofol 10 mg/ml 1,000 MG/100 ML VIAL IV PRN ×5 (03:55→20:45)
[2016-11-01 04:38] LABS: ABG MECHANICAL RATE 24; ARTERIAL BLOOD GAS MODE PRVC; ARTERIAL BLOOD HGB O2 SAT 95.8 % (95.0-98.0); ATERIAL BLOOD GAS PEEP 5; DRAW SITE RB; HHB 0.9 % (0.0-5.0); METHEMOGLOBIN 1.2 % (0.0-3.0)
[2016-11-01 06:55] LABS: BASO # 0.1 K/uL (0.0-0.2); BASO % 0.2 % (0.0-2.0); HEMATOCRIT 26.2 % (35.0-51.0); LYMPH # 0.2 K/uL (1.0-4.3); LYMPH % 0.6 % (20.0-40.0); MEAN CELL VOLUME 98.1 fL (80.0-94.0); MEAN CORPUSCULAR HGB CONC 32.6 g/dL (33.0-37.0); MEAN PLATELET VOLUME 10.5 fL (7.2-11.7); MONO # 0.7 K/uL (0.0-0.8); MONO % 2.6 % (0.0-10.0); PLATELET COUNT 95 K/uL (130-400); RED CELL DISTRIBUTION WIDTH 14.5 % (11.5-14.5); WHITE BLOOD COUNT 28.7 K/uL (4.8-10.8)
[2016-11-01 07:07] LABS: POTASSIUM 4.1 mmol/L (3.6-5.2)
[2016-11-01 07:09] LABS: ALB/GLOB RATIO 0.8 (1.0-2.1); BILIRUBIN,TOTAL 2.1 mg/dL (0.2-1.3); CALCIUM 6.4 mg/dl (8.6-10.4); PHOSPHOROUS 8.6 mg/dL (2.5-4.5); TOTAL PROTEIN 6.1 g/dL (6.3-8.3)
[2016-11-01] MEDS: Sevelamer Carb 0.8 gm/Packet NG SCH (08:12)
[2016-11-01 08:21] LABS: NEUTROPHIL 95 % (50-75); TOTAL CELLS COUNTED 100
--- NOTE | 2016-11-01 08:22 | CP.PCM.PN ---
Subjective - Date & Time of Evaluation Date of Evaluation: 11/01/16 Time of Evaluation: 08:10 - Subjective Subjective: Hospitalist Progress Note (Patient was seen and examined at 8:10 AM 11/01/16) 45 year old male who presented to the ER here at [facility] on 10/21/16 intoxicated with complaints of cough and abdominal pain. He was found to be hypotensive, hypoxic, with RUL/RML Pneumonia. He eventually required intubation and ventilator support. He was also found to be in Acute Renal Failure and started receiving HD through Right Femoral Access on Wednesday10/23/16, 10/26, and 10/27/16. He was for Right Perm Cath with Dr. De La Vega for 10/28/16 however as his platelets declined, this was put on hold and patient was transfused 2 bags of platelets as per ICU Team. He became hypotensive on and therefore was started on Norepinephrine Drip, Albumin, and Solumedrol. Chest X Ray on 10/29/16 showed Left Pneumothorax and Animal Pathologist has placed a left sided chest tube pigtail catheter and repeat Chest X Ray showed re -expansion of the Left Lung. He had Right Perm Cath and Left Arm PICC Line placed 10/30/16. Diprivan was added on 10/31/16 for agitation. His prognosis remains guarded. Although awake today, patient is under sedation and intubated and therefore could not answer ROS questions. He did not follow instructions during Cranial Nerve Exam. HEENT: NCA, Pupils are pinpoint/round/reactive to light, NO lymphadenopathy, NO JVD, NO thyromegaly, Nasal turbinates are nonerythematous/nonedematous/moist, Oral mucosa is dry. Cardio: NS1 and NS2, NO M/R/G (please note that this exam is limited by interference of diffuse course breath sounds) Resp: Course breath sounds diffusely GI: BSx4 are reduced in all 4 quadrants, Distention, Liver and Spleen could not be adequately palpated secondary to distention, Soft Ext: Pulses are strong and equal, Capillary Refill is 2 seconds, NO cyanosis, NO edema, Patches of Psoriasis on the bilateral elbows/bilateral anterior lower legs Neuro: exam not possible Skin: Bilateral Groin fungal rash Assessment and Plan (1) Alcohol withdrawal Assessment & Plan: Patient with history of DTs since his admission. Management in ICU. Patient is currently intubated and sedated. Thiamine 100 mg IV 1x/day Folic Acid 1 mg IV 1x/day Status: Acute (2) Hypoxemia/Respiratory Distress Assessment & Plan: Patient is intubated and on ventilator support. Not a candidate for weaning at this time. Diprivan 1,000 mg in 100 mls @ 2.775 mls/hr Midazolam 100 ml/hr Status: Acute (3). Left Pneumothorax Chest X Ray 10/27/16 shows dense confluent consolidative changes throughout both lungs with associated bilateral pleural effusions. Chest X Ray on 10/29/16 showed Left Pneumothorax and Animal Pathologist has placed a left sided chest tube with repeat Chest X Ray showing re-expansion of the Left Lung. Chest X Ray 10/31/16 showed interval improvement in pulmonary venous congestion and interstitial edema with stable position of lines and tubes. (4)Sepsis Secondary to Pneumonia and Bacteremia Assessment & Plan: X-ray chest report reviewed 10/24/16 and 10/26/16. Progression of infiltrates throughout the right upper and lower lobe treated infiltrate changes are also seen in the left middle to left lower lung cameron. Bilateral effusions. Chest X Ray 10/27/16 shows dense confluent consolidative changes throughout both lungs with associated bilateral pleural effusions. Chest X Ray on 10/29/16 showed Left Pneumothorax and Animal Pathologist has placed a left sided chest tube with repeat Chest X Ray on 10/29/16 showing re-expansion of the Left Lung. CT Angio Chest 10/23/16 showed NO PE, extensive pulmonary consolidation bilateral lower lobes and RUL, patchy infiltrates NING and RML, bilateral pleural effusions, hepatic cirrhosis, and ascites. Patient has Strep pneumoniae bacteremia as per Blood Culture 10/21/16 and Coag Neg Staph (which may be a contaminant) on 1/2 Blood Cultures from 10/26/16. Repeat Blood Culture on 10/28/16 is Negative To Date. Ceftriaxone 2 gm IV 1x/day Vancomycin 500 mg IV 1x/day ID Dr. Aleyda Bowers Status: Acute (5). Hypotension Albumin 12.5 gm IV Q8H (was placed on HOLD by Nephrology on 10/31/16) Solumedrol 40 mg IV Q8H Norepinephrine Drip (6) Seizure disorder Assessment & Plan: Secondary to alcohol withdrawal. Patient is currently intubated and sedated. No seizures reported. Neurology Dr. Pineda Status: Acute (7) Thrombocytopenia Assessment & Plan: Likely Secondary to alcohol abuse. Pepcid was discontinued 10/26/16 as this can worsen thrombocytopenia and Protonix 40 mg IV 1x/day was ordered 10/26/16 Platelets today 11/01/16 have increased to 95 He received 1 bag of platelets 10/28/16 as per ICU Team. Platelet 1 bag was also ordered for 9 PM 10/29/16 as these platelets would have Heparin Abs were also ordered on 10/30/16 and this will need to be followed up Status: Chronic (8) Psoriasis Status: Acute (9) Renal failure Assessment & Plan: Renal U/S 10/24/16 showed nonobstructing calculus upper/midpole Right Kidney and Abdominal Ascites Hepatitis Panel is negative Patient was receiving HD through Right Femoral Catheter and this was removed on 10/31/16 S/P Right Chest Perm Cath placement by Vascular Surgeon Dr. De La Vega . HD through Right Chest Perm Cath as per Nephrology Dr. Merida/Derian Sevelamer 2.4 gm TID Status: Acute (10). Anemia Likely Secondary to Chronic Alcohol Use and Renal Failure Stool Occult Blood 10/21/16 is negative HgB/Hct today 11/01/16 is stable at 8.6/26.2 Continue to monitor (11). Hypokalemia Resolved (12). Bilateral Groin Fungal Rash Nystatin Powder 2x/day for 2 weeks started on 10/26/16 (13). Prophylactic Measures Bilateral SCDs Protonix 40 mg IV 1x/day Nepro Carbsteady via NGT Aspart ISS low dose added Accuchecks Q6H NO anticoagulation considering the Anemia and Thrombocytopenia Von Burkett D.O. Objective - Vital Signs/Intake and Output Vital Signs (last 24 hours): Temp Pulse Resp BP Pulse Ox 98.5 F 96 H 18 117/73 97 11/01/16 04:00 11/01/16 08:11 11/01/16 07:12 11/01/16 08:12 11/01/16 08:11 Intake and Output: 11/01/16 11/01/16 06:59 18:59 Intake Total 1264.0 164.5 Output Total 650 80 Balance 614.0 84.5 - Medications Medications: Current Medications Acetaminophen (Tylenol 650mg/20.3ml Solution Ud) 650 mg PO Q6 PRN PRN Reason: Temperature Last Admin: 10/25/16 12:15 Dose: 650 mg Acetylcysteine (Acetylcysteine 20%) 4 ml INH RQ6 [facility] Last Admin: 11/01/16 07:27 Dose: 4 ml Albumin Human (Albumin Human 25% (12.5 Gm/50 Ml)) 12.5 gm IV Q8H [facility] Last Admin: 10/27/16 12:01 Dose: Not Given Albuterol Sulfate (Albuterol 0.083% Inhal Nikky (2.5 Mg/3 Ml) Ud) 2.5 mg INH RQ6 [facility] Last Admin: 11/01/16 07:27 Dose: 2.5 mg Folic Acid 1 mg/ Sodium (Chloride) 100.2 mls @ 60 mls/hr IV DAILY [facility] Last Admin: 10/31/16 10:29 Dose: 60 mls/hr Norepinephrine Bitartrate 4 mg (/ Dextrose) 254 mls @ 15.24 mls/hr IV .[id number] PRN; Protocol; 4 MCG/MIN PRN Reason: TITRATE PER MD ORDER Last Admin: 10/27/16 12:03 Dose: 4 mcg/min, 15.24 mls/hr Ceftriaxone Sodium 2 gm/ (Sodium Chloride) 100 mls @ 100 mls/hr IVPB Q12H [facility] Last Admin: 10/31/16 22:00 Dose: 100 mls/hr Vancomycin HCl 500 mg/ Sodium (Chloride) 100 mls @ 100 mls/hr IVPB ONCE ONE Stop: 11/02/16 13:59 Propofol (Diprivan) 1,000 mg in 100 mls @ 2.775 mls/hr IV .Q24H PRN; Protocol; 5 MCG/KG/MIN PRN Reason: TITRATE PER MD ORDER Last Admin: 11/01/16 08:09 Dose: 44.14 mcg/kg/min, 24.498 mls/hr Insulin Human Regular (Novolin R) 0 unit SC ACHS [facility] PRN Reason: Protocol Last Admin: 10/31/16 22:35 Dose: Not Given Lactic Acid (Lac-Hydrin 12% Lotion (225 G)) 0 gm EXT BID [facility] Last Admin: 10/31/16 19:04 Dose: 1 applic Methylprednisolone (Solu-Medrol) 40 mg IV Q8H [facility] Last Admin: 11/01/16 02:39 Dose: 40 mg Midazolam HCl (Versed Inj) 2 mg IVP Q4H PRN PRN Reason: Agitation Last Admin: 10/25/16 08:45 Dose: 2 mg Nystatin (Nystop Topical Powder) 1 applic TOP BID [facility] Stop: 11/09/16 10:00 Last Admin: 10/31/16 19:04 Dose: 1 applic Pantoprazole Sodium (Protonix Inj) 40 mg IVP DAILY [facility] Last Admin: 10/31/16 10:28 Dose: 40 mg Sevelamer Carbonate (Renvela) 2.4 gm NG TIDCC [facility] Last Admin: 11/01/16 08:12 Dose: 2.4 gm Thiamine HCl (Vitamin B1 Inj) 100 mg IV DAILY [facility] Last Admin: 10/31/16 10:28 Dose: 100 mg - Labs Labs: 11/01/16 06:48 11/01/16 06:48 PT 17.7 SECONDS (9.7-12.2) H 10/29/16 06:22 INR 1.6 10/29/16 06:22 APTT 30 SECONDS (21-34) 10/29/16 06:22
[2016-11-01] MEDS: Thiamine 100 mg/ml Inj IV SCH (10:14)
[2016-11-01] MEDS: cefTRIAXone 2 GM in Sodium Chloride 0.9% 100 ML IVPB SCH (10:15)
[2016-11-01] MEDS: (Novolin R) Insulin Human Regular 100 units/ml vial SC SCH ×4 (10:16→23:52)
[2016-11-01] MEDS: Ammonium Lactate 12% Lotion (225 g) EXT SCH ×2 (10:17→17:02)
--- NOTE | 2016-11-01 11:22 | CP.PCM.PN ---
Subjective - Date & Time of Evaluation Date of Evaluation: 11/01/16 Time of Evaluation: 07:45 - Subjective Subjective: Pt S&E this AM. Patient reacts to verbal stimuli. R permacath site c/d/i, no active bleeding noted. Objective - Vital Signs/Intake and Output Vital Signs (last 24 hours): Temp Pulse Resp BP Pulse Ox 98.1 F 90 13 110/48 L 96 11/01/16 08:00 11/01/16 10:12 11/01/16 10:12 11/01/16 10:12 11/01/16 10:12 Intake and Output: 11/01/16 11/01/16 06:59 18:59 Intake Total 1264.0 802.5 Output Total 650 360 Balance 614.0 442.5 - Medications Medications: Current Medications Acetaminophen (Tylenol 650mg/20.3ml Solution Ud) 650 mg PO Q6 PRN PRN Reason: Temperature Last Admin: 10/25/16 12:15 Dose: 650 mg Acetylcysteine (Acetylcysteine 20%) 4 ml INH RQ6 [facility] Last Admin: 11/01/16 07:27 Dose: 4 ml Albumin Human (Albumin Human 25% (12.5 Gm/50 Ml)) 12.5 gm IV Q8H [facility] Last Admin: 10/27/16 12:01 Dose: Not Given Albuterol Sulfate (Albuterol 0.083% Inhal Nikky (2.5 Mg/3 Ml) Ud) 2.5 mg INH RQ6 [facility] Last Admin: 11/01/16 07:27 Dose: 2.5 mg Folic Acid 1 mg/ Sodium (Chloride) 100.2 mls @ 60 mls/hr IV DAILY [facility] Last Admin: 11/01/16 11:03 Dose: 60 mls/hr Norepinephrine Bitartrate 4 mg (/ Dextrose) 254 mls @ 15.24 mls/hr IV .[id number] PRN; Protocol; 4 MCG/MIN PRN Reason: TITRATE PER MD ORDER Last Admin: 10/27/16 12:03 Dose: 4 mcg/min, 15.24 mls/hr Ceftriaxone Sodium 2 gm/ (Sodium Chloride) 100 mls @ 100 mls/hr IVPB Q12H [facility] Last Admin: 11/01/16 10:15 Dose: 100 mls/hr Vancomycin HCl 500 mg/ Sodium (Chloride) 100 mls @ 100 mls/hr IVPB ONCE ONE Stop: 11/02/16 13:59 Propofol (Diprivan) 1,000 mg in 100 mls @ 2.775 mls/hr IV .Q24H PRN; Protocol; 5 MCG/KG/MIN PRN Reason: TITRATE PER MD ORDER Last Admin: 11/01/16 08:09 Dose: 44.14 mcg/kg/min, 24.498 mls/hr Insulin Human Regular (Novolin R) 0 unit SC Q6 [facility] PRN Reason: Protocol Lactic Acid (Lac-Hydrin 12% Lotion (225 G)) 0 gm EXT BID [facility] Last Admin: 11/01/16 10:17 Dose: 1 applic Methylprednisolone (Solu-Medrol) 40 mg IV Q8H [facility] Last Admin: 11/01/16 10:15 Dose: 40 mg Midazolam HCl (Versed Inj) 2 mg IVP Q4H PRN PRN Reason: Agitation Last Admin: 10/25/16 08:45 Dose: 2 mg Nystatin (Nystop Topical Powder) 1 applic TOP BID [facility] Stop: 11/09/16 10:00 Last Admin: 11/01/16 10:17 Dose: 1 applic Pantoprazole Sodium (Protonix Inj) 40 mg IVP DAILY [facility] Last Admin: 11/01/16 10:14 Dose: 40 mg Sevelamer Carbonate (Renvela) 2.4 gm NG TIDCC [facility] Thiamine HCl (Vitamin B1 Inj) 100 mg IV DAILY [facility] Last Admin: 11/01/16 10:14 Dose: 100 mg - Labs Labs: 11/01/16 06:48 11/01/16 06:48 PT 17.7 SECONDS (9.7-12.2) H 10/29/16 06:22 INR 1.6 10/29/16 06:22 APTT 30 SECONDS (21-34) 10/29/16 06:22 - Constitutional Appears: Chronically Ill - Head Exam Head Exam: NORMOCEPHALIC - Eye Exam Eye Exam: Normal appearance - ENT Exam ENT Exam: Mucous Membranes Dry - Respiratory Exam Additional comments: Pigtail catheter in place - Cardiovascular Exam Cardiovascular Exam: +S1, +S2 - GI/Abdominal Exam GI & Abdominal Exam: Soft - Back Exam Additional comments: R femoral catheter removed - Skin Skin Exam: Dry, Warm Assessment and Plan - Assessment and Plan (Free Text) Assessment: 45M s/p RIJ permacath insertion POD2 -continue using Permacath -R fem catheter removed -C/w medical management per ICU team DW Dr. Ceferino Laurent PGY-2
--- NOTE | 2016-11-01 11:48 | CP.CCUPN ---
CCU Subjective - Physician Review Events Since Last Encounter (Free Text): 11/01/16 11:46 Patient seen and examined in the intensive care unit. Patient remained intubated on ventilatory support FiO2 reduced to 70% with PEEP of [address] with no pneumothorax Afebrile Open eyes to stimuli Tolerating feeding CCU Objective - Vital Signs / Intake & Output Vital Signs (Last 4 hours): Vital Signs Temp Pulse Resp BP Pulse Ox 11/01/16 11:12 85 13 127/75 98 11/01/16 11:00 87 19 97 11/01/16 10:12 90 13 110/48 L 96 11/01/16 10:00 88 15 97 11/01/16 09:12 88 17 101/41 L 95 11/01/16 09:00 90 16 97 11/01/16 08:12 97 H 117/73 95 11/01/16 08:11 96 H 97 11/01/16 08:00 98.1 F 101 H 95 Intake and Output (Last 8hrs): Intake & Output 10/31/16 11/01/16 11/01/16 22:59 06:59 14:59 Intake Total 546.0 946.0 802.5 Output Total 320 490 360 Balance 226.0 456.0 442.5 Weight 201 lb 4.513 oz Intake: IV 200 200 100 Intake, IV Amount 196.0 196.0 322.5 Right Proximal Port 200 Internal Jugular Right jugular TLC medial 196.0 196.0 122.5 port Tube Feeding 150 300 230 Other 250 150 Output: Chest Tube Drainage 45 Left Mid-Axillary Chest 45 Urine 320 490 315 Urethral (Walters) 320 490 315 Stool 0 0 0 Other: # Bowel Movements 1 - Physical Exam Head: Positive for: Atraumatic, Normocephalic Mouth: Positive for: Dry Respiratory/Chest: Positive for: Respiratory Distress, Decreased Breath Sounds, Other (intubated ) Cardiovascular: Positive for: Normal S1, S2, Tachycardic Abdomen: Positive for: Distention, Normal Bowel Sounds Genitourinary Male: Positive for: Other (walters in place) Upper Extremity: Negative for: Edema Lower Extremity: Negative for: Edema Neurological: Negative for: GCS=15, Speech Normal (patient is intubated and sedated ) Skin: Positive for: Rashes (scrotal rash ), Other (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, bilateral upper extremities, and in gluteal fold.) Psychiatric: Negative for: Alert (patient is sedated and intubated ) - Medications Active Medications: Active Medications Generic Name Dose Route Start Last Admin Trade Name Freq PRN Reason Stop Dose Admin Acetaminophen 650 mg 10/25/16 11:56 10/25/16 12:15 Tylenol 650mg/20.3ml Solution Ud PO 650 mg Q6 PRN Administration Temperature Acetylcysteine 4 ml 10/29/16 17:30 11/01/16 07:27 Acetylcysteine 20% INH 4 ml RQ6 [facility] Administration Albumin Human 12.5 gm 10/26/16 18:45 10/27/16 12:01 Albumin Human 25% (12.5 Gm/50 Ml) IV Not Given Q8H [facility] Albuterol Sulfate 2.5 mg 10/31/16 14:00 11/01/16 07:27 Albuterol 0.083% Inhal Nikky (2.5 Mg/3 Ml) Ud INH 2.5 mg RQ6 [facility] Administration Folic Acid 1 mg/ Sodium 100.2 mls @ 60 mls/hr 10/25/16 14:30 11/01/16 11:03 Chloride IV 60 mls/hr DAILY [facility] Administration Norepinephrine Bitartrate 4 mg 254 mls @ 15.24 mls/hr 10/26/16 18:39 12:03 / Dextrose IV 4 mcg/min .[id number] PRN 15.24 mls/hr TITRATE PER MD ORDER Administration Protocol 4 MCG/MIN Ceftriaxone Sodium 2 gm/ 100 mls @ 100 mls/hr 10/27/16 22:00 11/01/16 10:15 Sodium Chloride IVPB 100 mls/hr Q12H [facility] Administration Vancomycin HCl 500 mg/ Sodium 100 mls @ 100 mls/hr 11/02/16 13:00 Chloride IVPB 11/02/16 13:59 ONCE ONE Propofol 1,000 mg in 100 mls @ 2.775 mls/hr 10/31/16 09:51 11/01/16 08:09 Diprivan IV 44.14 mcg/kg/min .Q24H PRN 24.498 mls/hr TITRATE PER MD ORDER Administration Protocol 5 MCG/KG/MIN Insulin Human Regular 0 unit 11/01/16 12:00 Novolin R SC Q6 [facility] Protocol Lactic Acid 0 gm 10/22/16 13:00 11/01/16 10:17 Lac-Hydrin 12% Lotion (225 G) EXT 1 applic BID [facility] Administration Methylprednisolone 40 mg 10/26/16 18:41 11/01/16 10:15 Solu-Medrol IV 40 mg Q8H [facility] Administration Midazolam HCl 2 mg 10/22/16 19:22 10/25/16 08:45 Versed Inj IVP 2 mg Q4H PRN Administration Agitation Nystatin 1 applic 10/26/16 10:00 11/01/16 10:17 Nystop Topical Powder TOP 11/09/16 10:00 1 applic BID [facility] Administration Pantoprazole Sodium 40 mg 10/26/16 10:00 11/01/16 10:14 Protonix Inj IVP 40 mg DAILY [facility] Administration Sevelamer Carbonate 2.4 gm 11/01/16 12:00 Renvela NG TIDCC [facility] Thiamine HCl 100 mg 10/25/16 15:30 11/01/16 10:14 Vitamin B1 Inj IV 100 mg DAILY [facility] Administration - Patient Studies Lab Studies: Microbiology Studies 10/28/16 21:00 Blood Culture - Preliminary Blood-During Dialysis NO GROWTH AFTER 3 DAYS 10/28/16 21:30 Blood Culture - Preliminary Blood-During Dialysis NO GROWTH AFTER 3 DAYS 10/26/16 09:10 Blood Culture - Final Blood NO GROWTH AFTER 5 DAYS Gram Stain - Final TEST NOT PERFORMED Lab Studies 11/01/16 11/01/16 11/01/16 Range/Units 06:48 06:48 04:25 WBC 28.7 H D (4.8-10.8) K/uL RBC 2.68 L (4.40-5.90) Mil/uL Hgb 8.6 L (12.0-18.0) g/dL Hct 26.2 L (35.0-51.0) % MCV 98.1 H (80.0-94.0) fL MCH 32.0 H (27.0-31.0) pg MCHC 32.6 L (33.0-37.0) g/dL RDW 14.5 (11.5-14.5) % Plt Count 95 L (130-400) K/uL MPV 10.5 (7.2-11.7) fL Neut % (Auto) 96.6 H (50.0-75.0) % Lymph % (Auto) 0.6 L (20.0-40.0) % [place] % (Auto) 2.6 (0.0-10.0) % Eos % (Auto) 0.0 (0.0-4.0) % Baso % (Auto) 0.2 (0.0-2.0) % Neut # 27.8 H (1.8-7.0) K/uL Lymph # 0.2 L (1.0-4.3) K/uL [place] # 0.7 (0.0-0.8) K/uL Eos # 0.0 (0.0-0.7) K/uL Baso # 0.1 (0.0-0.2) K/uL Neutrophils % (Manual) 95 H (50-75) % Band Neutrophils % 3 H (0-2) % Lymphocytes % (Manual) 1 L (20-40) % Monocytes % (Manual) 1 (0-10) % Platelet Estimate Decreased L (NORMAL) Polychromasia Slight Hypochromasia (manual) Slight Anisocytosis (manual) Slight Puncture Site Rb pCO2 48 H (35-45) mm/Hg pO2 101 H (80-100) mm/Hg HCO3 25.8 (21-28) mmol/L ABG pH 7.36 (7.35-7.45) ABG Total CO2 28.6 H (22-28) mmol/L ABG O2 Saturation 99.1 H (95-98) % ABG Base Excess 1.1 (-2.0-3.0) mmol/L ABG Hemoglobin 11.5 L (11.7-17.4) g/dL ABG Carboxyhemoglobin 2.0 H (0.5-1.5) % POC ABG HHb (Measured) 0.9 (0.0-5.0) % ABG Methemoglobin 1.2 (0.0-3.0) % Nicolas Test Na A-a O2 Difference 409.0 mm/Hg Respiratory Index 4.0 Hgb O2 Saturation 95.8 (95.0-98.0) % Vent Mode Prvc Mechanical Rate 24 FiO2 80.0 % Tidal Volume 400 PEEP 5 Sodium 141 (132-148) mmol/L Potassium 4.1 (3.6-5.2) mmol/L Chloride 98 (98-107) mmol/L Carbon Dioxide 24 (22-30) mmol/L Anion Gap 24 H (10-20) BUN 68 H (9-20) mg/dL Creatinine 3.4 H (0.8-1.5) MG/DL Est GFR ( Amer) 24 Est GFR (Non-Af Amer) 20 POC Glucose (mg/dL) (65-110) mg/dL Random Glucose 227 H (75-110) mg/dL Calcium 6.4 L (8.6-10.4) mg/dl Phosphorus 8.6 H (2.5-4.5) mg/dL Magnesium 2.0 (1.6-2.3) mg/dL Total Bilirubin 2.1 H (0.2-1.3) mg/dL AST 43 (17-59) U/L ALT 70 (21-72) U/L Alkaline Phosphatase 106 (38-126) U/L Total Protein 6.1 L (6.3-8.3) g/dL Albumin 2.8 L (3.5-5.0) g/dL Globulin 3.3 (2.2-3.9) gm/dL Albumin/Globulin Ratio 0.8 L (1.0-2.1) 10/31/16 10/31/16 10/31/16 Range/Units 22:27 19:35 11:42 WBC (4.8-10.8) K/uL RBC (4.40-5.90) Mil/uL Hgb (12.0-18.0) g/dL Hct (35.0-51.0) % MCV (80.0-94.0) fL MCH (27.0-31.0) pg MCHC (33.0-37.0) g/dL RDW (11.5-14.5) % Plt Count (130-400) K/uL MPV (7.2-11.7) fL Neut % (Auto) (50.0-75.0) % Lymph % (Auto) (20.0-40.0) % [place] % (Auto) (0.0-10.0) % Eos % (Auto) (0.0-4.0) % Baso % (Auto) (0.0-2.0) % Neut # (1.8-7.0) K/uL Lymph # (1.0-4.3) K/uL [place] # (0.0-0.8) K/uL Eos # (0.0-0.7) K/uL Baso # (0.0-0.2) K/uL Neutrophils % (Manual) (50-75) % Band Neutrophils % (0-2) % Lymphocytes % (Manual) (20-40) % Monocytes % (Manual) (0-10) % Platelet Estimate (NORMAL) Polychromasia Hypochromasia (manual) Anisocytosis (manual) Puncture Site pCO2 (35-45) mm/Hg pO2 (80-100) mm/Hg HCO3 (21-28) mmol/L ABG pH (7.35-7.45) ABG Total CO2 (22-28) mmol/L ABG O2 Saturation (95-98) % ABG Base Excess (-2.0-3.0) mmol/L ABG Hemoglobin (11.7-17.4) g/dL ABG Carboxyhemoglobin (0.5-1.5) % POC ABG HHb (Measured) (0.0-5.0) % ABG Methemoglobin (0.0-3.0) % Nicolas Test A-a O2 Difference mm/Hg Respiratory Index Hgb O2 Saturation (95.0-98.0) % Vent Mode Mechanical Rate FiO2 % Tidal Volume PEEP Sodium (132-148) mmol/L Potassium (3.6-5.2) mmol/L Chloride (98-107) mmol/L Carbon Dioxide (22-30) mmol/L Anion Gap (10-20) BUN (9-20) mg/dL Creatinine (0.8-1.5) MG/DL Est GFR ( Amer) Est GFR (Non-Af Amer) POC Glucose (mg/dL) 190 H 169 H 214 H (65-110) mg/dL Random Glucose (75-110) mg/dL Calcium (8.6-10.4) mg/dl Phosphorus (2.5-4.5) mg/dL Magnesium (1.6-2.3) mg/dL Total Bilirubin (0.2-1.3) mg/dL AST (17-59) U/L ALT (21-72) U/L Alkaline Phosphatase (38-126) U/L Total Protein (6.3-8.3) g/dL Albumin (3.5-5.0) g/dL Globulin (2.2-3.9) gm/dL Albumin/Globulin Ratio (1.0-2.1) Laboratory Results - last 24 hr 10/31/16 10/31/16 10/31/16 11:42 19:35 22:27 WBC RBC Hgb Hct MCV MCH MCHC RDW Plt Count MPV Neut % (Auto) Lymph % (Auto) [place] % (Auto) Eos % (Auto) Baso % (Auto) Neut # Lymph # [place] # Eos # Baso # Neutrophils % (Manual) Band Neutrophils % Lymphocytes % (Manual) Monocytes % (Manual) Platelet Estimate Polychromasia Hypochromasia (manual) Anisocytosis (manual) Puncture Site pCO2 pO2 HCO3 ABG pH ABG Total CO2 ABG O2 Saturation ABG Base Excess ABG Hemoglobin ABG Carboxyhemoglobin POC ABG HHb (Measured) ABG Methemoglobin Nicolas Test A-a O2 Difference Respiratory Index Hgb O2 Saturation Vent Mode Mechanical Rate FiO2 Tidal Volume PEEP Sodium Potassium Chloride Carbon Dioxide Anion Gap BUN Creatinine Est GFR ( Amer) Est GFR (Non-Af Amer) POC Glucose (mg/dL) 214 H 169 H 190 H Random Glucose Calcium Phosphorus Magnesium Total Bilirubin AST ALT Alkaline Phosphatase Total Protein Albumin Globulin Albumin/Globulin Ratio 11/01/16 11/01/16 11/01/16 04:25 06:48 06:48 WBC 28.7 H D RBC 2.68 L Hgb 8.6 L Hct 26.2 L MCV 98.1 H MCH 32.0 H MCHC 32.6 L RDW 14.5 Plt Count 95 L MPV 10.5 Neut % (Auto) 96.6 H Lymph % (Auto) 0.6 L [place] % (Auto) 2.6 Eos % (Auto) 0.0 Baso % (Auto) 0.2 Neut # 27.8 H Lymph # 0.2 L [place] # 0.7 Eos # 0.0 Baso # 0.1 Neutrophils % (Manual) 95 H Band Neutrophils % 3 H Lymphocytes % (Manual) 1 L Monocytes % (Manual) 1 Platelet Estimate Decreased L Polychromasia Slight Hypochromasia (manual) Slight Anisocytosis (manual) Slight Puncture Site Rb pCO2 48 H pO2 101 H HCO3 25.8 ABG pH 7.36 ABG Total CO2 28.6 H ABG O2 Saturation 99.1 H ABG Base Excess 1.1 ABG Hemoglobin 11.5 L ABG Carboxyhemoglobin 2.0 H POC ABG HHb (Measured) 0.9 ABG Methemoglobin 1.2 Nicolas Test Na A-a O2 Difference 409.0 Respiratory Index 4.0 Hgb O2 Saturation 95.8 Vent Mode Prvc Mechanical Rate 24 FiO2 80.0 Tidal Volume 400 PEEP 5 Sodium 141 Potassium 4.1 Chloride 98 Carbon Dioxide 24 Anion Gap 24 H BUN 68 H Creatinine 3.4 H Est GFR ( Amer) 24 Est GFR (Non-Af Amer) 20 POC Glucose (mg/dL) Random Glucose 227 H Calcium 6.4 L Phosphorus 8.6 H Magnesium 2.0 Total Bilirubin 2.1 H AST 43 ALT 70 Alkaline Phosphatase 106 Total Protein 6.1 L Albumin 2.8 L Globulin 3.3 Albumin/Globulin Ratio 0.8 L Review of Systems - Review of Systems Systems not reviewed;Unavailable: Intubated Critical Care Progress Note - Ventilator Checklist Head of Bed 30 Degrees: Yes Daily Sedation Vacation: Yes Daily Assessment of Readiness to Wean: Yes Assessment/Plan (1) Acute respiratory failure with hypoxemia Current Visit: Yes Status: Acute Comment: Continue ventilatory support Picture consistent with ARDS Low titer volume Continue PEEP and reduce FiO2 70% Continue with pigtail catheter Continue with IV antibiotics no waening as patient is requiring high FiO2 (2) Acute renal failure (ARF) Current Visit: Yes Status: Acute Comment: Continue hemodialysis (3) Pneumonia Current Visit: Yes Status: Acute Comment: Continue antibiotics as per infectious disease
[2016-11-01] MEDS: Sevelamer Carb 2.4 gm/Packet NG SCH ×2 (12:16→17:02)
--- NOTE | 2016-11-01 17:19 | CP.PCM.PN ---
Subjective - Date & Time of Evaluation Date of Evaluation: 11/01/16 Time of Evaluation: 09:00 - Subjective Subjective: EVENTS NOTED WILL RECULTURE AND [employer]OVERAGE MAY NEED TO CHANGE LINES Objective - Vital Signs/Intake and Output Vital Signs (last 24 hours): Temp Pulse Resp BP Pulse Ox 98.6 F 97 H 12 117/65 95 11/01/16 16:00 11/01/16 16:13 11/01/16 16:13 11/01/16 16:13 11/01/16 16:13 Intake and Output: 11/01/16 11/01/16 06:59 18:59 Intake Total 1264.0 1525.0 Output Total 650 645 Balance 614.0 880.0 - Medications Medications: Current Medications Acetaminophen (Tylenol 650mg/20.3ml Solution Ud) 650 mg PO Q6 PRN PRN Reason: Temperature Last Admin: 10/25/16 12:15 Dose: 650 mg Acetylcysteine (Acetylcysteine 20%) 4 ml INH RQ6 [facility] Last Admin: 11/01/16 13:40 Dose: 4 ml Albumin Human (Albumin Human 25% (12.5 Gm/50 Ml)) 12.5 gm IV Q8H [facility] Last Admin: 10/27/16 12:01 Dose: Not Given Albuterol Sulfate (Albuterol 0.083% Inhal Nikky (2.5 Mg/3 Ml) Ud) 2.5 mg INH RQ6 [facility] Last Admin: 11/01/16 13:39 Dose: 2.5 mg Folic Acid 1 mg/ Sodium (Chloride) 100.2 mls @ 60 mls/hr IV DAILY [facility] Last Admin: 11/01/16 11:03 Dose: 60 mls/hr Ceftriaxone Sodium 2 gm/ (Sodium Chloride) 100 mls @ 100 mls/hr IVPB Q12H [facility] Last Admin: 11/01/16 10:15 Dose: 100 mls/hr Vancomycin HCl 500 mg/ Sodium (Chloride) 100 mls @ 100 mls/hr IVPB ONCE ONE Stop: 11/02/16 13:59 Propofol (Diprivan) 1,000 mg in 100 mls @ 2.775 mls/hr IV .Q24H PRN; Protocol; 5 MCG/KG/MIN PRN Reason: TITRATE PER MD ORDER Last Admin: 11/01/16 16:38 Dose: 44.14 mcg/kg/min, 24.498 mls/hr Insulin Human Regular (Novolin R) 0 unit SC Q6 [facility] PRN Reason: Protocol Last Admin: 11/01/16 12:16 Dose: 2 unit Lactic Acid (Lac-Hydrin 12% Lotion (225 G)) 0 gm EXT BID [facility] Last Admin: 11/01/16 17:02 Dose: 1 applic Methylprednisolone (Solu-Medrol) 40 mg IV Q8H [facility] Last Admin: 11/01/16 10:15 Dose: 40 mg Midazolam HCl (Versed Inj) 2 mg IVP Q4H PRN PRN Reason: Agitation Last Admin: 10/25/16 08:45 Dose: 2 mg Nystatin (Nystop Topical Powder) 1 applic TOP BID [facility] Stop: 11/09/16 10:00 Last Admin: 11/01/16 17:03 Dose: 1 applic Pantoprazole Sodium (Protonix Inj) 40 mg IVP DAILY [facility] Last Admin: 11/01/16 10:14 Dose: 40 mg Sevelamer Carbonate (Renvela) 2.4 gm NG TIDCC [facility] Last Admin: 11/01/16 17:02 Dose: 2.4 gm Thiamine HCl (Vitamin B1 Inj) 100 mg IV DAILY [facility] Last Admin: 11/01/16 10:14 Dose: 100 mg - Labs Labs: 11/01/16 06:48 11/01/16 06:48 PT 17.7 SECONDS (9.7-12.2) H 10/29/16 06:22 INR 1.6 10/29/16 06:22 APTT 30 SECONDS (21-34) 10/29/16 06:22 Assessment and Plan (1) Seizure disorder Status: Acute (2) Seizure disorder Status: Acute (3) Sepsis Status: Acute (4) Sepsis Status: Acute (5) Alcohol withdrawal Status: Acute (6) Hypoxemia Status: Acute (7) Pneumonia Status: Acute (8) Respiratory distress Status: Acute (9) Psoriasis Status: Acute
[2016-11-01] MEDS: Meropenem 500 MG in Sodium Chloride 0.9% 100 ML IVPB SCH (17:57)
[2016-11-01] MEDS: Micafungin 100 MG in Sodium Chloride 0.9% 100 ML IV SCH (17:57)
[2016-11-02] MEDS: Propofol 10 mg/ml 1,000 MG/100 ML VIAL IV PRN ×6 (00:48→23:00)
[2016-11-02] MEDS: Albuterol 0.083% Inhal Sol (2.5 mg/3 mL) UD INH SCH ×4 (01:08→20:40)
[2016-11-02] MEDS: Acetylcysteine 20% Inhal Soln (4ml) INH SCH ×4 (01:08→20:40)
[2016-11-02] MEDS: MethylPREDNISolone 40 mg Vial IV SCH (03:15)
[2016-11-02 04:40] LABS: ABG ALLEN TEST POS; ABG MECHANICAL RATE 24; ARTERIAL BLOOD GAS MODE PRVC; ARTERIAL BLOOD HGB O2 SAT 96.5 % (95.0-98.0); ATERIAL BLOOD GAS PEEP 7; CARBOXYHEMOGLOBIN 1.9 % (0.5-1.5); DRAW SITE RR; HHB 0.4 % (0.0-5.0); METHEMOGLOBIN 1.2 % (0.0-3.0)
[2016-11-02] MEDS: Meropenem 500 MG in Sodium Chloride 0.9% 100 ML IVPB SCH ×2 (05:45→18:56)
[2016-11-02] MEDS: (Novolin R) Insulin Human Regular 100 units/ml vial SC SCH ×3 (06:07→18:06)
[2016-11-02 06:12] LABS: BASO % 0.1 % (0.0-2.0); HEMATOCRIT 23.8 % (35.0-51.0); LYMPH # 0.2 K/uL (1.0-4.3); LYMPH % 1.1 % (20.0-40.0); MEAN CELL VOLUME 97.9 fL (80.0-94.0); MEAN CORPUSCULAR HEMOGLOBIN 32.2 pg (27.0-31.0); MEAN CORPUSCULAR HGB CONC 32.9 g/dL (33.0-37.0); MONO # 0.8 K/uL (0.0-0.8); PLATELET COUNT 104 K/uL (130-400); RED CELL DISTRIBUTION WIDTH 14.4 % (11.5-14.5); WHITE BLOOD COUNT 19.5 K/uL (4.8-10.8)
[2016-11-02 06:28] LABS: ALB/GLOB RATIO 0.9 (1.0-2.1); BILIRUBIN,TOTAL 1.1 mg/dL (0.2-1.3); CALCIUM 6.8 mg/dl (8.6-10.4); MAGNESIUM 2.5 mg/dL (1.6-2.3); PHOSPHOROUS 6.4 mg/dL (2.5-4.5); POTASSIUM 3.8 mmol/L (3.6-5.2); TOTAL PROTEIN 5.5 g/dL (6.3-8.3)
--- NOTE | 2016-11-02 07:27 | CP.PCM.PN ---
Subjective - Date & Time of Evaluation Date of Evaluation: 11/02/16 Time of Evaluation: 07:25 - Subjective Subjective: General Sx progress note for Dr. Meredith Vega, PGY-1 Pt S & E at bedside. Pt now opening eyes, tracking. Still intubated. Objective - Vital Signs/Intake and Output Vital Signs (last 24 hours): Temp Pulse Resp BP Pulse Ox 98.4 F 88 19 109/66 94 L 11/02/16 06:00 11/02/16 06:12 11/02/16 06:12 11/02/16 06:12 11/02/16 06:12 Intake and Output: 11/02/16 11/02/16 06:59 18:59 Intake Total 598.0 Output Total 560 Balance 38.0 - Medications Medications: Current Medications Acetaminophen (Tylenol 650mg/20.3ml Solution Ud) 650 mg PO Q6 PRN PRN Reason: Temperature Last Admin: 10/25/16 12:15 Dose: 650 mg Acetylcysteine (Acetylcysteine 20%) 4 ml INH RQ6 [facility] Last Admin: 11/02/16 01:08 Dose: 4 ml Albumin Human (Albumin Human 25% (12.5 Gm/50 Ml)) 12.5 gm IV Q8H [facility] Last Admin: 10/27/16 12:01 Dose: Not Given Albuterol Sulfate (Albuterol 0.083% Inhal Nikky (2.5 Mg/3 Ml) Ud) 2.5 mg INH RQ6 [facility] Last Admin: 11/02/16 01:08 Dose: 2.5 mg Folic Acid 1 mg/ Sodium (Chloride) 100.2 mls @ 60 mls/hr IV DAILY [facility] Last Admin: 11/01/16 11:03 Dose: 60 mls/hr Vancomycin HCl 500 mg/ Sodium (Chloride) 100 mls @ 100 mls/hr IVPB ONCE ONE Stop: 11/02/16 13:59 Propofol (Diprivan) 1,000 mg in 100 mls @ 2.775 mls/hr IV .Q24H PRN; Protocol; 5 MCG/KG/MIN PRN Reason: TITRATE PER MD ORDER Last Admin: 11/02/16 05:47 Dose: 44.14 mcg/kg/min, 24.498 mls/hr Micafungin Sodium 100 mg/ (Sodium Chloride) 100 mls @ 100 mls/hr IV Q24H [facility] Last Admin: 11/01/16 17:57 Dose: 100 mls/hr Meropenem 500 mg/ Sodium (Chloride) 100 mls @ 100 mls/hr IVPB Q12H [facility] Last Admin: 11/02/16 05:45 Dose: 100 mls/hr Insulin Human Regular (Novolin R) 0 unit SC Q6 [facility] PRN Reason: Protocol Last Admin: 11/02/16 06:07 Dose: 2 unit Lactic Acid (Lac-Hydrin 12% Lotion (225 G)) 0 gm EXT BID [facility] Last Admin: 11/01/16 17:02 Dose: 1 applic Methylprednisolone (Solu-Medrol) 40 mg IV Q8H [facility] Last Admin: 11/02/16 03:15 Dose: 40 mg Midazolam HCl (Versed Inj) 2 mg IVP Q4H PRN PRN Reason: Agitation Last Admin: 10/25/16 08:45 Dose: 2 mg Nystatin (Nystop Topical Powder) 1 applic TOP BID [facility] Stop: 11/09/16 10:00 Last Admin: 11/01/16 17:03 Dose: 1 applic Pantoprazole Sodium (Protonix Inj) 40 mg IVP DAILY [facility] Last Admin: 11/01/16 10:14 Dose: 40 mg Sevelamer Carbonate (Renvela) 2.4 gm NG TIDCC [facility] Last Admin: 11/01/16 17:02 Dose: 2.4 gm Thiamine HCl (Vitamin B1 Inj) 100 mg IV DAILY [facility] Last Admin: 11/01/16 10:14 Dose: 100 mg - Labs Labs: 11/02/16 06:03 11/02/16 06:02 PT 17.7 SECONDS (9.7-12.2) H 10/29/16 06:22 INR 1.6 10/29/16 06:22 APTT 30 SECONDS (21-34) 10/29/16 06:22 - Constitutional Appears: Non-toxic, No Acute Distress - Head Exam Head Exam: ATRAUMATIC, NORMAL INSPECTION, NORMOCEPHALIC - Eye Exam Eye Exam: EOMI, Normal appearance Additional comments: Pt now tracking with eyes - ENT Exam ENT Exam: Normal Exam - Neck Exam Additional comments: RIJ in place-no erythema or drainage - Respiratory Exam Respiratory Exam: Clear to Ausculation Bilateral, NORMAL BREATHING PATTERN Additional comments: Permacath in place over right chest wall. No erythema or drainage noted. - Cardiovascular Exam Cardiovascular Exam: REGULAR RHYTHM, +S1, +S2 - GI/Abdominal Exam GI & Abdominal Exam: Soft, Normal Bowel Sounds. absent: Tenderness - Extremities Exam Extremities Exam: absent: Pedal Edema Additional comments: SCDs in place - Neurological Exam Neurological Exam: Awake - Psychiatric Exam Additional comments: unable to assess, intubated, non verbal - Skin Skin Exam: Dry, Warm Assessment and Plan - Assessment and Plan (Free Text) Assessment: 45M w/ESRD on HD POD#3 s/p RIJ permacath placement Plan: Tolerating HD via RIJ permacath R femoral HD catheter removed as per nephro Thank you for this consult DW attending Silvia, PGY-1
[2016-11-02 08:16] LABS: NEUTROPHIL 92 % (50-75); TOTAL CELLS COUNTED 100
[2016-11-02] MEDS: Sevelamer Carb 2.4 gm/Packet NG SCH ×3 (08:49→17:26)
--- NOTE | 2016-11-02 10:31 | CP.PCM.PN ---
Subjective - Date & Time of Evaluation Date of Evaluation: 11/02/16 Time of Evaluation: 10:00 - Subjective Subjective: Remains intubated on vent Sedated Objective - Vital Signs/Intake and Output Vital Signs (last 24 hours): Temp Pulse Resp BP Pulse Ox 98.4 F 90 13 116/66 92 L 11/02/16 06:00 11/02/16 07:12 11/02/16 07:12 11/02/16 07:12 11/02/16 07:12 Intake and Output: 11/02/16 11/02/16 06:59 18:59 Intake Total 769.5 151.0 Output Total 560 240 Balance 209.5 -89.0 - Medications Medications: Current Medications Acetaminophen (Tylenol 650mg/20.3ml Solution Ud) 650 mg PO Q6 PRN PRN Reason: Temperature Last Admin: 10/25/16 12:15 Dose: 650 mg Acetylcysteine (Acetylcysteine 20%) 4 ml INH RQ6 [facility] Last Admin: 11/02/16 07:30 Dose: 4 ml Albumin Human (Albumin Human 25% (12.5 Gm/50 Ml)) 12.5 gm IV Q8H [facility] Last Admin: 10/27/16 12:01 Dose: Not Given Albuterol Sulfate (Albuterol 0.083% Inhal Nikky (2.5 Mg/3 Ml) Ud) 2.5 mg INH RQ6 [facility] Last Admin: 11/02/16 07:30 Dose: 2.5 mg Epoetin Humphrey (Procrit) 10,000 unit SC TTS [facility] Ferric Sodium Gluconate Complex (Ferrlecit) 125 mg IVPB DAILY [facility] Stop: 11/10/16 10:13 Vancomycin HCl 500 mg/ Sodium (Chloride) 100 mls @ 100 mls/hr IVPB ONCE ONE Stop: 11/02/16 13:59 Propofol (Diprivan) 1,000 mg in 100 mls @ 2.775 mls/hr IV .Q24H PRN; Protocol; 5 MCG/KG/MIN PRN Reason: TITRATE PER MD ORDER Last Admin: 11/02/16 08:57 Dose: 44.14 mcg/kg/min, 24.498 mls/hr Micafungin Sodium 100 mg/ (Sodium Chloride) 100 mls @ 100 mls/hr IV Q24H [facility] Last Admin: 11/01/16 17:57 Dose: 100 mls/hr Meropenem 500 mg/ Sodium (Chloride) 100 mls @ 100 mls/hr IVPB Q12H [facility] Last Admin: 11/02/16 05:45 Dose: 100 mls/hr Insulin Human Regular (Novolin R) 0 unit SC Q6 [facility] PRN Reason: Protocol Last Admin: 11/02/16 06:07 Dose: 2 unit Lactic Acid (Lac-Hydrin 12% Lotion (225 G)) 0 gm EXT BID [facility] Last Admin: 11/01/16 17:02 Dose: 1 applic Methylprednisolone (Solu-Medrol) 40 mg IV DAILY [facility] Midazolam HCl (Versed Inj) 2 mg IVP Q4H PRN PRN Reason: Agitation Last Admin: 10/25/16 08:45 Dose: 2 mg Multivitamins/Vitamin C (Multi-Delyn Liquid) 5 ml PO DAILY [facility] Nystatin (Nystop Topical Powder) 1 applic TOP BID [facility] Stop: 11/09/16 10:00 Last Admin: 11/01/16 17:03 Dose: 1 applic Pantoprazole Sodium (Protonix Inj) 40 mg IVP DAILY [facility] Last Admin: 11/01/16 10:14 Dose: 40 mg Sevelamer Carbonate (Renvela) 2.4 gm NG TIDCC [facility] Last Admin: 11/02/16 08:49 Dose: 2.4 gm - Labs Labs: 11/02/16 06:03 11/02/16 06:02 PT 17.7 SECONDS (9.7-12.2) H 10/29/16 06:22 INR 1.6 10/29/16 06:22 APTT 30 SECONDS (21-34) 10/29/16 06:22 - Respiratory Exam Additional comments: lungs tanesha . No wheezes - Cardiovascular Exam Cardiovascular Exam: REGULAR RHYTHM Additional comments: sinus rythm 90/ min - GI/Abdominal Exam GI & Abdominal Exam: Soft - Extremities Exam Additional comments: No edema Assessment and Plan - Assessment and Plan (Free Text) Assessment: RUPALI on HD support B/L pneumonia, & pleual effusions Respiratory failure Alcoholism, liver cirrhosis Plan: Will order dialysis today & maintain MWF schedule Venous congestion had improved after dialysis BUN is disproportionately high probably secondary to tube feedings
[2016-11-02] MEDS: Ferric Sodium Gluconat Complex 62.5 mg/5 ml Vial IVPB SCH (11:17)
[2016-11-02] MEDS: Ammonium Lactate 12% Lotion (225 g) EXT SCH ×2 (11:28→17:32)
--- NOTE | 2016-11-02 11:56 | CP.CCUPN ---
CCU Subjective - Physician Review Subjective (Free Text): Patient was seen and examined at bedside in the morning. Patient is alert. Patient is intubated and unable to respond to review of systems. 11/02/16 13:49 CCU Objective - Vital Signs / Intake & Output Intake and Output (Last 8hrs): Intake & Output 11/01/16 11/02/16 11/02/16 22:59 06:59 14:59 Intake Total 1116.0 446.0 151.0 Output Total 400 410 240 Balance 716.0 36.0 -89.0 Intake: IV 200 200 100 Intake, IV Amount 396.0 196.0 51.0 Right Proximal Port 200 2 Internal Jugular Right jugular TLC medial 196.0 196.0 49.0 port Tube Feeding 400 50 Other 120 Output: Chest Tube Drainage 10 Left Mid-Axillary Chest 10 Urine 390 410 240 Urethral (Walters) 390 410 240 Stool 0 0 0 Other: # Bowel Movements 0 - Physical Exam Head: Positive for: Atraumatic, Normocephalic Extroacular Muscles: Negative for: EOMI Mouth: Positive for: Dry Respiratory/Chest: Positive for: Decreased Breath Sounds, Other (intubated ) Cardiovascular: Positive for: Regular Rate and Rhythm, Normal S1, S2 Abdomen: Positive for: Distention, Normal Bowel Sounds Genitourinary Male: Positive for: Other (walters in place) Upper Extremity: Negative for: Edema Lower Extremity: Negative for: Edema Neurological: Negative for: GCS=15, Speech Normal (patient is intubated and sedated ) Skin: Positive for: Other (Psoriasis located on bl knees, bilateral upper extremities) Psychiatric: Positive for: Alert (patient is sedated and intubated ) - Medications Active Medications: Active Medications Generic Name Dose Route Start Last Admin Trade Name Freq PRN Reason Stop Dose Admin Acetaminophen 650 mg 10/25/16 11:56 10/25/16 12:15 Tylenol 650mg/20.3ml Solution Ud PO 650 mg Q6 PRN Administration Temperature Acetylcysteine 4 ml 10/29/16 17:30 11/02/16 07:30 Acetylcysteine 20% INH 4 ml RQ6 MIRA Administration Albumin Human 12.5 gm 10/26/16 18:45 10/27/16 12:01 Albumin Human 25% (12.5 Gm/50 Ml) IV Not Given Q8H MIRA Albuterol Sulfate 2.5 mg 10/31/16 14:00 11/02/16 07:30 Albuterol 0.083% Inhal Nikky (2.5 Mg/3 Ml) Ud INH 2.5 mg RQ6 MIRA Administration Epoetin Humphrey 10,000 unit 11/03/16 10:00 Procrit SC TTS MIRA Ferric Sodium Gluconate Complex 125 mg 11/02/16 10:12 11/02/16 11:17 Ferrlecit IVPB 11/10/16 10:13 125 mg DAILY MIRA Administration Vancomycin HCl 500 mg/ Sodium 100 mls @ 100 mls/hr 11/02/16 13:00 Chloride IVPB 11/02/16 13:59 ONCE ONE Propofol 1,000 mg in 100 mls @ 2.775 mls/hr 10/31/16 09:51 11/02/16 08:57 Diprivan IV 44.14 mcg/kg/min .Q24H PRN 24.498 mls/hr TITRATE PER MD ORDER Administration Protocol 5 MCG/KG/MIN Micafungin Sodium 100 mg/ 100 mls @ 100 mls/hr 11/01/16 17:30 11/01/16 17:57 Sodium Chloride IV 100 mls/hr Q24H M[facility]A Administration Meropenem 500 mg/ Sodium 100 mls @ 100 mls/hr 11/01/16 17:45 11/02/16 05:45 Chloride IVPB 100 mls/hr Q12H [facility]A Administration Insulin Human Regular 0 unit 11/01/16 12:00 11/02/16 06:07 Novolin R SC 2 unit Q6 MIRA Administration Protocol Lactic Acid 0 gm 10/22/16 13:00 11/02/16 11:28 Lac-Hydrin 12% Lotion (225 G) EXT 1 applic BID MIRA Administration Methylprednisolone 40 mg 11/03/16 10:00 Solu-Medrol IV DAILY MIRA Midazolam HCl 2 mg 10/22/16 19:22 10/25/16 08:45 Versed Inj IVP 2 mg Q4H PRN Administration Agitation Multivitamins/Vitamin C 5 ml 11/02/16 10:15 Multi-Delyn Liquid PO DAILY M[facility]A Nystatin 1 applic 10/26/16 10:00 11/02/16 11:28 Nystop Topical Powder TOP 11/09/16 10:00 1 applic BID M[facility]A Administration Pantoprazole Sodium 40 mg 10/26/16 10:00 11/02/16 11:06 Protonix Inj IVP 40 mg DAILY M[facility]A Administration Sevelamer Carbonate 2.4 gm 11/01/16 12:00 11/02/16 08:49 Renvela NG 2.4 gm TIDCC M[facility]A Administration - Patient Studies Lab Studies: Microbiology Studies 10/28/16 21:00 Blood Culture - Preliminary Blood-During Dialysis NO GROWTH AFTER 4 DAYS 10/28/16 21:30 Blood Culture - Preliminary Blood-During Dialysis NO GROWTH AFTER 4 DAYS Lab Studies 11/02/16 11/02/16 11/02/16 Range/Units 11:25 06:03 06:02 WBC 19.5 H (4.8-10.8) K/uL RBC 2.43 L (4.40-5.90) Mil/uL Hgb 7.8 L (12.0-18.0) g/dL Hct 23.8 L (35.0-51.0) % MCV 97.9 H (80.0-94.0) fL MCH 32.2 H (27.0-31.0) pg MCHC 32.9 L (33.0-37.0) g/dL RDW 14.4 (11.5-14.5) % Plt Count 104 L (130-400) K/uL MPV 11.0 (7.2-11.7) fL Neut % (Auto) 94.8 H (50.0-75.0) % Lymph % (Auto) 1.1 L (20.0-40.0) % [place] % (Auto) 4.0 (0.0-10.0) % Eos % (Auto) 0.0 (0.0-4.0) % Baso % (Auto) 0.1 (0.0-2.0) % Neut # 18.5 H (1.8-7.0) K/uL Lymph # 0.2 L (1.0-4.3) K/uL [place] # 0.8 (0.0-0.8) K/uL Eos # 0.0 (0.0-0.7) K/uL Baso # 0.0 (0.0-0.2) K/uL Neutrophils % (Manual) 92 H (50-75) % Band Neutrophils % 2 (0-2) % Lymphocytes % (Manual) 1 L (20-40) % Monocytes % (Manual) 5 (0-10) % Platelet Estimate Slightly decreased L (NORMAL) Hypochromasia (manual) Moderate Poikilocytosis (manual Slight Anisocytosis (manual) Slight Target Cells Moderate Tear Drop Cells Slight Puncture Site pCO2 (35-45) mm/Hg pO2 (80-100) mm/Hg HCO3 (21-28) mmol/L ABG pH (7.35-7.45) ABG Total CO2 (22-28) mmol/L ABG O2 Saturation (95-98) % ABG Base Excess (-2.0-3.0) mmol/L ABG Hemoglobin (11.7-17.4) g/dL ABG Carboxyhemoglobin (0.5-1.5) % POC ABG HHb (Measured) (0.0-5.0) % ABG Methemoglobin (0.0-3.0) % Nicolas Test A-a O2 Difference mm/Hg Respiratory Index Hgb O2 Saturation (95.0-98.0) % Vent Mode Mechanical Rate FiO2 % Tidal Volume PEEP Sodium 144 (132-148) mmol/L Potassium 3.8 (3.6-5.2) mmol/L Chloride 102 (98-107) mmol/L Carbon Dioxide 26 (22-30) mmol/L Anion Gap 20 (10-20) BUN 99 H (9-20) mg/dL Creatinine 3.9 H (0.8-1.5) MG/DL Est GFR ( Amer) 20 Est GFR (Non-Af Amer) 17 POC Glucose (mg/dL) 264 H (65-110) mg/dL Random Glucose 219 H (75-110) mg/dL Calcium 6.8 L (8.6-10.4) mg/dl Phosphorus 6.4 H (2.5-4.5) mg/dL Magnesium 2.5 H (1.6-2.3) mg/dL Total Bilirubin 1.1 (0.2-1.3) mg/dL AST 37 (17-59) U/L ALT 62 (21-72) U/L Alkaline Phosphatase 108 (38-126) U/L Total Protein 5.5 L (6.3-8.3) g/dL Albumin 2.6 L (3.5-5.0) g/dL Globulin 2.9 (2.2-3.9) gm/dL Albumin/Globulin Ratio 0.9 L (1.0-2.1) Random Vancomycin ug/mL 11/02/16 11/02/16 11/02/16 Range/Units 06:02 06:01 04:25 WBC (4.8-10.8) K/uL RBC (4.40-5.90) Mil/uL Hgb (12.0-18.0) g/dL Hct (35.0-51.0) % MCV (80.0-94.0) fL MCH (27.0-31.0) pg MCHC (33.0-37.0) g/dL RDW (11.5-14.5) % Plt Count (130-400) K/uL MPV (7.2-11.7) fL Neut % (Auto) (50.0-75.0) % Lymph % (Auto) (20.0-40.0) % [place] % (Auto) (0.0-10.0) % Eos % (Auto) (0.0-4.0) % Baso % (Auto) (0.0-2.0) % Neut # (1.8-7.0) K/uL Lymph # (1.0-4.3) K/uL [place] # (0.0-0.8) K/uL Eos # (0.0-0.7) K/uL Baso # (0.0-0.2) K/uL Neutrophils % (Manual) (50-75) % Band Neutrophils % (0-2) % Lymphocytes % (Manual) (20-40) % Monocytes % (Manual) (0-10) % Platelet Estimate (NORMAL) Hypochromasia (manual) Poikilocytosis (manual Anisocytosis (manual) Target Cells Tear Drop Cells Puncture Site Rr pCO2 36 (35-45) mm/Hg pO2 100 (80-100) mm/Hg HCO3 25.8 (21-28) mmol/L ABG pH 7.45 (7.35-7.45) ABG Total CO2 26.1 (22-28) mmol/L ABG O2 Saturation 99.6 H (95-98) % ABG Base Excess 1.1 (-2.0-3.0) mmol/L ABG Hemoglobin 8.8 L (11.7-17.4) g/dL ABG Carboxyhemoglobin 1.9 H (0.5-1.5) % POC ABG HHb (Measured) 0.4 (0.0-5.0) % ABG Methemoglobin 1.2 (0.0-3.0) % Nicolas Test Pos A-a O2 Difference 354.0 mm/Hg Respiratory Index 3.5 Hgb O2 Saturation 96.5 (95.0-98.0) % Vent Mode Prvc Mechanical Rate 24 FiO2 70.0 % Tidal Volume 400 PEEP 7 Sodium (132-148) mmol/L Potassium (3.6-5.2) mmol/L Chloride (98-107) mmol/L Carbon Dioxide (22-30) mmol/L Anion Gap (10-20) BUN (9-20) mg/dL Creatinine (0.8-1.5) MG/DL Est GFR ( Amer) Est GFR (Non-Af Amer) POC Glucose (mg/dL) 239 H (65-110) mg/dL Random Glucose (75-110) mg/dL Calcium (8.6-10.4) mg/dl Phosphorus (2.5-4.5) mg/dL Magnesium (1.6-2.3) mg/dL Total Bilirubin (0.2-1.3) mg/dL AST (17-59) U/L ALT (21-72) U/L Alkaline Phosphatase (38-126) U/L Total Protein (6.3-8.3) g/dL Albumin (3.5-5.0) g/dL Globulin (2.2-3.9) gm/dL Albumin/Globulin Ratio (1.0-2.1) Random Vancomycin 10.70 ug/mL 11/01/16 11/01/16 11/01/16 Range/Units 23:39 17:36 12:10 WBC (4.8-10.8) K/uL RBC (4.40-5.90) Mil/uL Hgb (12.0-18.0) g/dL Hct (35.0-51.0) % MCV (80.0-94.0) fL MCH (27.0-31.0) pg MCHC (33.0-37.0) g/dL RDW (11.5-14.5) % Plt Count (130-400) K/uL MPV (7.2-11.7) fL Neut % (Auto) (50.0-75.0) % Lymph % (Auto) (20.0-40.0) % [place] % (Auto) (0.0-10.0) % Eos % (Auto) (0.0-4.0) % Baso % (Auto) (0.0-2.0) % Neut # (1.8-7.0) K/uL Lymph # (1.0-4.3) K/uL [place] # (0.0-0.8) K/uL Eos # (0.0-0.7) K/uL Baso # (0.0-0.2) K/uL Neutrophils % (Manual) (50-75) % Band Neutrophils % (0-2) % Lymphocytes % (Manual) (20-40) % Monocytes % (Manual) (0-10) % Platelet Estimate (NORMAL) Hypochromasia (manual) Poikilocytosis (manual Anisocytosis (manual) Target Cells Tear Drop Cells Puncture Site pCO2 (35-45) mm/Hg pO2 (80-100) mm/Hg HCO3 (21-28) mmol/L ABG pH (7.35-7.45) ABG Total CO2 (22-28) mmol/L ABG O2 Saturation (95-98) % ABG Base Excess (-2.0-3.0) mmol/L ABG Hemoglobin (11.7-17.4) g/dL ABG Carboxyhemoglobin (0.5-1.5) % POC ABG HHb (Measured) (0.0-5.0) % ABG Methemoglobin (0.0-3.0) % Nicolas Test A-a O2 Difference mm/Hg Respiratory Index Hgb O2 Saturation (95.0-98.0) % Vent Mode Mechanical Rate FiO2 % Tidal Volume PEEP Sodium (132-148) mmol/L Potassium (3.6-5.2) mmol/L Chloride (98-107) mmol/L Carbon Dioxide (22-30) mmol/L Anion Gap (10-20) BUN (9-20) mg/dL Creatinine (0.8-1.5) MG/DL Est GFR ( Amer) Est GFR (Non-Af Amer) POC Glucose (mg/dL) 265 H 240 H 216 H (65-110) mg/dL Random Glucose (75-110) mg/dL Calcium (8.6-10.4) mg/dl Phosphorus (2.5-4.5) mg/dL Magnesium (1.6-2.3) mg/dL Total Bilirubin (0.2-1.3) mg/dL AST (17-59) U/L ALT (21-72) U/L Alkaline Phosphatase (38-126) U/L Total Protein (6.3-8.3) g/dL Albumin (3.5-5.0) g/dL Globulin (2.2-3.9) gm/dL Albumin/Globulin Ratio (1.0-2.1) Random Vancomycin ug/mL Laboratory Results - last 24 hr 11/01/16 11/01/16 11/01/16 12:10 17:36 23:39 WBC RBC Hgb Hct MCV MCH MCHC RDW Plt Count MPV Neut % (Auto) Lymph % (Auto) [place] % (Auto) Eos % (Auto) Baso % (Auto) Neut # Lymph # [place] # Eos # Baso # Neutrophils % (Manual) Band Neutrophils % Lymphocytes % (Manual) Monocytes % (Manual) Platelet Estimate Hypochromasia (manual) Poikilocytosis (manual Anisocytosis (manual) Target Cells Tear Drop Cells Puncture Site pCO2 pO2 HCO3 ABG pH ABG Total CO2 ABG O2 Saturation ABG Base Excess ABG Hemoglobin ABG Carboxyhemoglobin POC ABG HHb (Measured) ABG Methemoglobin Nicolas Test A-a O2 Difference Respiratory Index Hgb O2 Saturation Vent Mode Mechanical Rate FiO2 Tidal Volume PEEP Sodium Potassium Chloride Carbon Dioxide Anion Gap BUN Creatinine Est GFR ( Amer) Est GFR (Non-Af Amer) POC Glucose (mg/dL) 216 H 240 H 265 H Random Glucose Calcium Phosphorus Magnesium Total Bilirubin AST ALT Alkaline Phosphatase Total Protein Albumin Globulin Albumin/Globulin Ratio Random Vancomycin 11/02/16 11/02/16 11/02/16 04:25 06:01 06:02 WBC RBC Hgb Hct MCV MCH MCHC RDW Plt Count MPV Neut % (Auto) Lymph % (Auto) [place] % (Auto) Eos % (Auto) Baso % (Auto) Neut # Lymph # [place] # Eos # Baso # Neutrophils % (Manual) Band Neutrophils % Lymphocytes % (Manual) Monocytes % (Manual) Platelet Estimate Hypochromasia (manual) Poikilocytosis (manual Anisocytosis (manual) Target Cells Tear Drop Cells Puncture Site Rr pCO2 36 pO2 100 HCO3 25.8 ABG pH 7.45 ABG Total CO2 26.1 ABG O2 Saturation 99.6 H ABG Base Excess 1.1 ABG Hemoglobin 8.8 L ABG Carboxyhemoglobin 1.9 H POC ABG HHb (Measured) 0.4 ABG Methemoglobin 1.2 Nicolas Test Pos A-a O2 Difference 354.0 Respiratory Index 3.5 Hgb O2 Saturation 96.5 Vent Mode Prvc Mechanical Rate 24 FiO2 70.0 Tidal Volume 400 PEEP 7 Sodium Potassium Chloride Carbon Dioxide Anion Gap BUN Creatinine Est GFR ( Amer) Est GFR (Non-Af Amer) POC Glucose (mg/dL) 239 H Random Glucose Calcium Phosphorus Magnesium Total Bilirubin AST ALT Alkaline Phosphatase Total Protein Albumin Globulin Albumin/Globulin Ratio Random Vancomycin 10.70 11/02/16 11/02/16 11/02/16 06:02 06:03 11:25 WBC 19.5 H RBC 2.43 L Hgb 7.8 L Hct 23.8 L MCV 97.9 H MCH 32.2 H MCHC 32.9 L RDW 14.4 Plt Count 104 L MPV 11.0 Neut % (Auto) 94.8 H Lymph % (Auto) 1.1 L [place] % (Auto) 4.0 Eos % (Auto) 0.0 Baso % (Auto) 0.1 Neut # 18.5 H Lymph # 0.2 L [place] # 0.8 Eos # 0.0 Baso # 0.0 Neutrophils % (Manual) 92 H Band Neutrophils % 2 Lymphocytes % (Manual) 1 L Monocytes % (Manual) 5 Platelet Estimate Slightly decreased L Hypochromasia (manual) Moderate Poikilocytosis (manual Slight Anisocytosis (manual) Slight Target Cells Moderate Tear Drop Cells Slight Puncture Site pCO2 pO2 HCO3 ABG pH ABG Total CO2 ABG O2 Saturation ABG Base Excess ABG Hemoglobin ABG Carboxyhemoglobin POC ABG HHb (Measured) ABG Methemoglobin Nicolas Test A-a O2 Difference Respiratory Index Hgb O2 Saturation Vent Mode Mechanical Rate FiO2 Tidal Volume PEEP Sodium 144 Potassium 3.8 Chloride 102 Carbon Dioxide 26 Anion Gap 20 BUN 99 H Creatinine 3.9 H Est GFR ( Amer) 20 Est GFR (Non-Af Amer) 17 POC Glucose (mg/dL) 264 H Random Glucose 219 H Calcium 6.8 L Phosphorus 6.4 H Magnesium 2.5 H Total Bilirubin 1.1 AST 37 ALT 62 Alkaline Phosphatase 108 Total Protein 5.5 L Albumin 2.6 L Globulin 2.9 Albumin/Globulin Ratio 0.9 L Random Vancomycin Fingerstick Blood Sugar Results: 239 Review of Systems - Review of Systems Systems not reviewed;Unavailable: Intubated Critical Care Progress Note - Vent Settings TIDAL VOLUME:: 400 RESP RATE:: 17 FIO2:: 60 PEEP:: 5 Assessment/Plan - Assessment and Plan (Free Text) Assessment: 45 year old male with medical history of alcoholism, presents to the ED with complaint of worsening cough, abdominal pain for seven days. Neuro: - Neurology Consult: Dr. Pineda --> help appreciated - Chronic alcohol abuse - Sedated - Propofol - 2mg Midazolam - After permacath (10/30) changed to Midazolam PRN Pulm: - Intubated - Hypoxic on vent secondary to ARDS - chest x-ray (10/29): Small left apical pneumothorax - pigtail catheter was inserted in the left lung by pulm Dr. Gomez --> help appreciated - keep pigtail catheter until extubation - Severe ARDS - Vent Settings: FiO2 100; Peep 10; Tidal Volume: 400 - Vent settings changed on 11/02: FiO2 60, Peep 5, Tidal Volume 400 CV: - Norepinephrine - PICC line placement Heme: - Thrombocytopenia - Plateletphresis: 1 unit (10/23) - Plateletphresis: 1 unit (10/28) - Plateletphresis: 1 unit (10/29) - Plateletphresis: 1 unit (10/30) - Platelets: 62 - Platelets on 11/02: 104 - Monitor - f/u HIT AB Renal: - Walters placed 10/21 - Monitor - Dialysis started 10/23 - Permacath placement 10/30 - Vascular Surgery Consult: Dr. De La Vega --> help appreciated - Nephrology Consult: Dr. Merida --> help appreciated - Dialysis TTS Endo: - Monitor - No acute issues GI: - Tube Feeding ID: - Sepsis due to Pneumonia - Blood culture: Strep Pneumoniae - Zosyn stopped 10/22 - Ceftriaxone started 10/22 - Vanco: 1gm dose given 10/30; f/u 500mg after dialysis - Vanco random 11/02: 10.70 - ID Consult: Dr. Bowers --> help appreciated - repeat blood cultures have been negative - preliminary DVT proph - SCDs; heparin held due to permacath placement - restart heparin q12 after GI proph - Pepcid 20mg PO Daily Code status - full code
[2016-11-02] MEDS: Multiple Vitamins Oral Solution PO SCH (12:04)
[2016-11-02] MEDS ORDERED: EPOETIN ALFA 10,000 UNIT/ML ML IV SCH (14:30)
--- NOTE | 2016-11-02 15:05 | CP.PCM.PN ---
Subjective - Date & Time of Evaluation Date of Evaluation: 11/02/16 Time of Evaluation: 13:00 - Subjective Subjective: Patient was seen and examined at bedside in ICU. Patient is intubated and sedated. Chest tube is in place Objective - Vital Signs/Intake and Output Vital Signs (last 24 hours): Temp Pulse Resp BP Pulse Ox 98.7 F 88 19 104/70 94 L 11/02/16 14:05 11/02/16 14:36 11/02/16 14:36 11/02/16 14:50 11/02/16 14:36 Intake and Output: 11/02/16 11/02/16 06:59 18:59 Intake Total 769.5 489.9 Output Total 560 610 Balance 209.5 -120.1 - Medications Medications: Current Medications Acetaminophen (Tylenol 650mg/20.3ml Solution Ud) 650 mg PO Q6 PRN PRN Reason: Temperature Last Admin: 10/25/16 12:15 Dose: 650 mg Acetylcysteine (Acetylcysteine 20%) 4 ml INH RQ6 [facility] Last Admin: 11/02/16 14:08 Dose: 4 ml Albumin Human (Albumin Human 25% (12.5 Gm/50 Ml)) 12.5 gm IV Q8H [facility] Last Admin: 10/27/16 12:01 Dose: Not Given Albuterol Sulfate (Albuterol 0.083% Inhal Nikky (2.5 Mg/3 Ml) Ud) 2.5 mg INH RQ6 [facility] Last Admin: 11/02/16 14:08 Dose: 2.5 mg Epoetin Humphrey (Procrit) 10,000 unit IV F [facility] Ferric Sodium Gluconate Complex (Ferrlecit) 125 mg IVPB DAILY [facility] Stop: 11/10/16 10:13 Last Admin: 11/02/16 11:17 Dose: 125 mg Propofol (Diprivan) 1,000 mg in 100 mls @ 2.775 mls/hr IV .Q24H PRN; Protocol; 5 MCG/KG/MIN PRN Reason: TITRATE PER MD ORDER Last Admin: 11/02/16 13:19 Dose: 30 mcg/kg/min, 16.65 mls/hr Micafungin Sodium 100 mg/ (Sodium Chloride) 100 mls @ 100 mls/hr IV Q24H [facility] Last Admin: 11/01/16 17:57 Dose: 100 mls/hr Meropenem 500 mg/ Sodium (Chloride) 100 mls @ 100 mls/hr IVPB Q12H [facility] Last Admin: 11/02/16 05:45 Dose: 100 mls/hr Insulin Human Regular (Novolin R) 0 unit SC Q6 [facility] PRN Reason: Protocol Last Admin: 11/02/16 12:00 Dose: 3 unit Lactic Acid (Lac-Hydrin 12% Lotion (225 G)) 0 gm EXT BID [facility] Last Admin: 11/02/16 11:28 Dose: 1 applic Methylprednisolone (Solu-Medrol) 40 mg IV DAILY [facility] Midazolam HCl (Versed Inj) 2 mg IVP Q4H PRN PRN Reason: Agitation Last Admin: 10/25/16 08:45 Dose: 2 mg Multivitamins/Vitamin C (Multi-Delyn Liquid) 5 ml PO DAILY [facility] Last Admin: 11/02/16 12:04 Dose: 5 ml Nystatin (Nystop Topical Powder) 1 applic TOP BID [facility] Stop: 11/09/16 10:00 Last Admin: 11/02/16 11:28 Dose: 1 applic Pantoprazole Sodium (Protonix Inj) 40 mg IVP DAILY [facility] Last Admin: 11/02/16 11:06 Dose: 40 mg Sevelamer Carbonate (Renvela) 2.4 gm NG TIDCC [facility] Last Admin: 11/02/16 12:15 Dose: 2.4 gm - Labs Labs: 11/02/16 06:03 11/02/16 06:02 PT 17.7 SECONDS (9.7-12.2) H 10/29/16 06:22 INR 1.6 10/29/16 06:22 APTT 30 SECONDS (21-34) 10/29/16 06:22 - Head Exam Head Exam: ATRAUMATIC, NORMOCEPHALIC - Eye Exam Eye Exam: Normal appearance - ENT Exam ENT Exam: Mucous Membranes Moist - Respiratory Exam Additional comments: Intubated. On ventilator support. Left-sided chest tube present. Decreased breath sounds on the left side. - Cardiovascular Exam Cardiovascular Exam: REGULAR RHYTHM, +S1, +S2 - GI/Abdominal Exam GI & Abdominal Exam: Soft. absent: Tenderness - Extremities Exam Extremities Exam: absent: Pedal Edema Assessment and Plan (1) Alcohol withdrawal Assessment & Plan: Patient to went into DTs and was intubated. Continue management as per ICU team Status: Acute (2) Hypoxemia Assessment & Plan: Patient is on ventilator support. Continue weaning as per ICU team Status: Acute (3) Pneumonia Assessment & Plan: Patient is on meropenem and micafungin. ID is on board. Status: Acute (4) Respiratory distress Assessment & Plan: Status post intubation. Weaning as per ICU team. Status: Acute (5) Seizure disorder Assessment & Plan: Secondary to alcohol withdrawal. Status: Acute (6) Sepsis Assessment & Plan: Continue antibiotics as per ICU team. Status: Acute (7) Thrombocythemia Assessment & Plan: Secondary to alcohol abuse. Status post platelet transfusion. Status: Chronic (8) Psoriasis Assessment & Plan: Continue local care Status: Acute (9) Renal failure Assessment & Plan: Hemodialysis as per renal. Status: Acute (10) Spontaneous pneumothorax Assessment & Plan: Status post chest tube placement. Status: Acute
[2016-11-02] MEDS: EPOETIN ALFA 10,000 UNIT/ML ML IV SCH (15:15)
--- NOTE | 2016-11-02 16:46 | RAD ---
HISTORY: VENTED-/ CHEST TUBE( LEFT) COMPARISON: Chest x-ray performed 10/31/16 TECHNIQUE: Chest, one view. FINDINGS: Examination limited by habitus, hypoinflation, and patient obliquity. Multiple external wires and leads obscure evaluation of the underlying parenchyma. Endotracheal tube. Nasogastric tube. Right-sided dialysis catheter appear in satisfactory position. Left-sided pigtail catheter. LUNGS: The right costophrenic angles excluded from view. Bibasilar atelectasis or infiltrates. Please note that chest x-ray has limited sensitivity for the detection of pulmonary masses. PLEURA: No large pleural effusion identified. Small left apical pneumothorax measures approximately 1.4 cm from pleural edge. CARDIOVASCULAR: Heart size appears top normal. OSSEOUS STRUCTURES: No acute osseous abnormality identified. VISUALIZED UPPER ABDOMEN: Unremarkable. OTHER FINDINGS: None. IMPRESSION: Small left-sided pneumothorax as above. Bilateral lower lobe atelectasis or infiltrates. Endotracheal tube, nasogastric tube, and dialysis catheter present. Left-sided pigtail catheter. Findings discussed with LM Colón on 11/02/16 at 4:39 p.m.
[2016-11-02 16:58] LABS: HEPARIN-IND PLATELET AB Negative (Negative)
[2016-11-02] MEDS: Micafungin 100 MG in Sodium Chloride 0.9% 100 ML IV SCH (17:20)
[2016-11-02] MEDS: Acetaminophen 650mg/20.3ml solution UD PO PRN (23:46)
[2016-11-03] MEDS: (Novolin R) Insulin Human Regular 100 units/ml vial SC SCH ×4 (00:11→17:41)
[2016-11-03] MEDS: Albuterol 0.083% Inhal Sol (2.5 mg/3 mL) UD INH SCH ×4 (01:11→19:32)
[2016-11-03] MEDS: Acetylcysteine 20% Inhal Soln (4ml) INH SCH ×2 (01:11→07:52)
[2016-11-03] MEDS: Propofol 10 mg/ml 1,000 MG/100 ML VIAL IV PRN ×3 (01:23→18:04)
[2016-11-03 05:40] LABS: ABG ALLEN TEST POS; ABG MECHANICAL RATE 24; ARTERIAL BLOOD GAS MODE PRVC; ARTERIAL BLOOD HGB O2 SAT 93.6 % (95.0-98.0); ATERIAL BLOOD GAS PEEP 5; DRAW SITE RR; HHB 3.1 % (0.0-5.0); METHEMOGLOBIN 1.4 % (0.0-3.0)
[2016-11-03] MEDS ORDERED: Sodium Chloride 0.9% 500 ML IV ONE ×2 (06:02→06:29)
[2016-11-03] MEDS: Meropenem 500 MG in Sodium Chloride 0.9% 100 ML IVPB SCH ×2 (06:19→17:30)
[2016-11-03 06:28] LABS: BASO % 0.1 % (0.0-2.0); EOS # 0.5 K/uL (0.0-0.7); EOS % 2.8 % (0.0-4.0); HEMATOCRIT 24.6 % (35.0-51.0); LYMPH # 0.6 K/uL (1.0-4.3); LYMPH % 3.7 % (20.0-40.0); MEAN CELL VOLUME 97.5 fL (80.0-94.0); MEAN CORPUSCULAR HEMOGLOBIN 32.4 pg (27.0-31.0); MEAN CORPUSCULAR HGB CONC 33.2 g/dL (33.0-37.0); MEAN PLATELET VOLUME 11.6 fL (7.2-11.7); MONO # 0.4 K/uL (0.0-0.8); MONO % 2.5 % (0.0-10.0); PLATELET COUNT 104 K/uL (130-400); RED CELL DISTRIBUTION WIDTH 15.1 % (11.5-14.5)
[2016-11-03 06:53] LABS: ALB/GLOB RATIO 0.9 (1.0-2.1); BILIRUBIN,TOTAL 1.4 mg/dL (0.2-1.3); MAGNESIUM 2.2 mg/dL (1.6-2.3); PHOSPHOROUS 5.8 mg/dL (2.5-4.5); POTASSIUM 3.5 mmol/L (3.6-5.2); TOTAL PROTEIN 5.6 g/dL (6.3-8.3)
[2016-11-03] MEDS: Sevelamer Carb 2.4 gm/Packet NG SCH ×3 (08:23→17:44)
[2016-11-03 08:25] LABS: EOSINOPHIL 1 % (0-4); NEUTROPHIL 91 % (50-75); TOTAL CELLS COUNTED 100
[2016-11-03] MEDS: Dexmedetomidine Hydrochloride 200 MCG in Sodium Chloride 0.9% 48 ML IV PRN ×3 (08:50→13:05)
--- NOTE | 2016-11-03 09:16 | RAD ---
Chest x-ray single frontal view History: Pneumothorax. Comparison: 11/02/2016 Findings: Endotracheal tube extending into the mid thoracic trachea. NG tube extending into the stomach. Right central venous catheter extending into the right atrium. Other lines and tubes stable position. Biapical pleural thickening with upper lobe granulomatous changes. Confluent consolidative changes at the right upper lung zone, right hilar region, right infrahilar region, and left lung base. Small bilateral pleural effusions. Cardiomegaly. Degenerative changes in the spine and shoulders. Impression: Confluent consolidative changes at the right upper lung zone, right hilar region, right infrahilar region, and left lung base. Small bilateral pleural effusions. Cardiomegaly.
[2016-11-03] MEDS: MethylPREDNISolone 40 mg Vial IV SCH (09:22)
[2016-11-03] MEDS: Ferric Sodium Gluconat Complex 62.5 mg/5 ml Vial IVPB SCH (09:22)
[2016-11-03] MEDS: Multiple Vitamins Oral Solution PO SCH (09:23)
[2016-11-03] MEDS: Ammonium Lactate 12% Lotion (225 g) EXT SCH ×2 (09:25→17:44)
--- NOTE | 2016-11-03 09:30 | RAD ---
Chest x-ray single frontal view History: Follow-up. Comparison: 11/02/2016 Findings: Endotracheal tube extending into the mid thoracic trachea. NG tube extending into the stomach. Right central venous catheter extending into the right atrium. Additional right central venous catheter extending to the distal right SVC. Diffuse increased interstitial lung markings with patchy bibasilar airspace opacities. Mild cardiomegaly. Degenerative changes in the spine and shoulders. Impression: Diffuse increased interstitial lung markings with patchy bibasilar airspace opacities. Mild cardiomegaly.
--- NOTE | 2016-11-03 09:36 | RAD ---
PROCEDURE: Intraoperative Fluoroscopy. HISTORY: RENAL FAILURE FINDINGS: Fluoroscopic assistance was provided for right central venous catheter placement. Please refer to the operative report from
[2016-11-03] MEDS ORDERED: EPOETIN ALFA 10,000 UNIT/ML ML SC SCH (10:00)
[2016-11-03] MEDS ORDERED: Sodium Chloride 0.9% 1,000 ML IV SCH (10:45)
--- NOTE | 2016-11-03 11:55 | CP.PCM.PN ---
Subjective - Date & Time of Evaluation Date of Evaluation: 11/03/16 Time of Evaluation: 11:35 - Subjective Subjective: emains intubated & sedated Objective - Vital Signs/Intake and Output Vital Signs (last 24 hours): Temp Pulse Resp BP Pulse Ox 99.1 F 86 13 93/52 L 95 11/03/16 04:00 11/03/16 11:10 11/03/16 11:10 11/03/16 11:10 11/03/16 11:10 Intake and Output: 11/03/16 11/03/16 06:59 18:59 Intake Total 2354.3 147.2 Output Total 90 0 Balance 2264.3 147.2 - Medications Medications: Current Medications Acetaminophen (Tylenol 650mg/20.3ml Solution Ud) 650 mg PO Q6 PRN PRN Reason: Temperature Last Admin: 11/02/16 23:46 Dose: 650 mg Albumin Human (Albumin Human 25% (12.5 Gm/50 Ml)) 12.5 gm IV Q8H [facility] Last Admin: 10/27/16 12:01 Dose: Not Given Albuterol Sulfate (Albuterol 0.083% Inhal Nikky (2.5 Mg/3 Ml) Ud) 2.5 mg INH RQ6 [facility] Last Admin: 11/03/16 07:52 Dose: 2.5 mg Epoetin Humph[place] (Procrit) 10,000 [place] [facility] [place] Admin: 11/02/16 15:15 Dose: 10,000 unit Ferric Sodium Gluconate Complex (Ferrlecit) 125 mg IVPB DAILY [facility] Stop: 11/10/16 10:13 Last Admin: 11/03/16 09:22 Dose: 125 mg Heparin Sodium (Porcine) (Heparin) 3,700 units [place] [facility] [place] Admin: 11/02/16 16:00 Dose: 3,700 units Propofol (Diprivan) 1,000 mg in 100 mls @ 2.775 mls/hr IV .Q24H PRN; Protocol; 5 MCG/KG/MIN PRN Reason: TITRATE PER MD ORDER Last Titration: 11/03/16 10:15 Dose: 4.68 mcg/kg/min, 2.6 mls/hr Micafungin Sodium 100 mg/ (Sodium Chloride) 100 mls @ 100 mls/hr IV Q24H [facility] Last Admin: 11/02/16 17:20 Dose: 100 mls/hr Meropenem 500 mg/ Sodium (Chloride) 100 mls @ 100 mls/hr IVPB Q12H [facility] Last Admin: 11/03/16 06:19 Dose: 100 mls/hr Dexmedetomidine HCl 200 mcg/ (Sodium Chloride) 50 mls @ 4.46 mls/hr IV TITR PRN ; Protocol; 0.2 MCG/KG/HR PRN Reason: Agitation Last Admin: 11/03/16 10:24 Dose: 0.96 mcg/kg/hr, 21.5 mls/hr Norepinephrine Bitartrate 4 mg (/ Dextrose) 254 mls @ 15.24 mls/hr IV .[id number] PRN; Protocol; 4 MCG/MIN PRN Reason: TITRATE PER MD ORDER Last Admin: 11/03/16 11:10 Dose: 4 mcg/min, 15.24 mls/hr Insulin Human Regular (Novolin R) 0 unit SC Q6 [facility] PRN Reason: Protocol Last Admin: 11/03/16 06:19 Dose: 2 unit Lactic Acid (Lac-Hydrin 12% Lotion (225 G)) 0 gm EXT BID [facility] Last Admin: 11/03/16 09:25 Dose: 1 applic Methylprednisolone (Solu-Medrol) 40 mg IV DAILY [facility] Last Admin: 11/03/16 09:22 Dose: 40 mg Midazolam HCl (Versed Inj) 2 mg IVP Q4H PRN PRN Reason: Agitation Last Admin: 10/25/16 08:45 Dose: 2 mg Multivitamins/Vitamin C (Multi-Delyn Liquid) 5 ml PO DAILY [facility] Last Admin: 11/03/16 09:23 Dose: 5 ml Nystatin (Nystop Topical Powder) 1 applic TOP BID [facility] Stop: 11/09/16 10:00 Last Admin: 11/03/16 09:25 Dose: 1 applic Pantoprazole Sodium (Protonix Inj) 40 mg IVP DAILY [facility] Last Admin: 11/03/16 09:22 Dose: 40 mg Sevelamer Carbonate (Renvela) 2.4 gm NG TIDCC [facility] Last Admin: 11/03/16 08:23 Dose: 2.4 gm - Labs Labs: 11/03/16 06:22 11/03/16 06:22 PT 17.7 SECONDS (9.7-12.2) H 10/29/16 06:22 INR 1.6 10/29/16 06:22 APTT 30 SECONDS (21-34) 10/29/16 06:22 - Respiratory Exam Additional comments: Lungs clear - Cardiovascular Exam Cardiovascular Exam: REGULAR RHYTHM - GI/Abdominal Exam GI & Abdominal Exam: Soft - Extremities Exam Additional comments: No edema Assessment and Plan - Assessment and Plan (Free Text) Assessment: RUPALI on HD support Respiratory failure, B/L pneumonia,pleural effusions Sepsis Alcohol abuse, liver cihosis Plan: Continue dialysis support & monitor renal parameters
--- NOTE | 2016-11-03 12:40 | CP.PCM.PN ---
Subjective - Date & Time of Evaluation Date of Evaluation: 11/03/16 Time of Evaluation: 13:00 - Subjective Subjective: Patient was seen and examined in ICU. Patient is intubated and sedated. Weaning trial in progress. Objective - Vital Signs/Intake and Output Vital Signs (last 24 hours): Temp Pulse Resp BP Pulse Ox 99.1 F 86 13 93/52 L 95 11/03/16 04:00 11/03/16 11:10 11/03/16 11:10 11/03/16 11:10 11/03/16 11:10 Intake and Output: 11/03/16 11/03/16 06:59 18:59 Intake Total 2354.3 147.2 Output Total 90 0 Balance 2264.3 147.2 - Medications Medications: Current Medications Acetaminophen (Tylenol 650mg/20.3ml Solution Ud) 650 mg PO Q6 PRN PRN Reason: Temperature Last Admin: 11/02/16 23:46 Dose: 650 mg Albumin Human (Albumin Human 25% (12.5 Gm/50 Ml)) 12.5 gm IV Q8H [facility] Last Admin: 10/27/16 12:01 Dose: Not Given Albuterol Sulfate (Albuterol 0.083% Inhal Nikky (2.5 Mg/3 Ml) Ud) 2.5 mg INH RQ6 [facility] Last Admin: 11/03/16 07:52 Dose: 2.5 mg Epoetin [place]rey (Procrit) 10,000 [place] [facility] [place] Admin: 11/02/16 15:15 Dose: 10,000 unit Ferric Sodium Gluconate Complex (Ferrlecit) 125 mg IVPB DAILY [facility] Stop: 11/10/16 10:13 Last Admin: 11/03/16 09:22 Dose: 125 mg Heparin Sodium (Porcine) (Heparin) 3,700 units IVP F [facility] Last Admin: 11/02/16 16:00 Dose: 3,700 units Propofol (Diprivan) 1,000 mg in 100 mls @ 2.775 mls/hr IV .Q24H PRN; Protocol; 5 MCG/KG/MIN PRN Reason: TITRATE PER MD ORDER Last Titration: 11/03/16 10:15 Dose: 4.68 mcg/kg/min, 2.6 mls/hr Micafungin Sodium 100 mg/ (Sodium Chloride) 100 mls @ 100 mls/hr IV Q24H [facility] Last Admin: 11/02/16 17:20 Dose: 100 mls/hr Meropenem 500 mg/ Sodium (Chloride) 100 mls @ 100 mls/hr IVPB Q12H [facility] Last Admin: 11/03/16 06:19 Dose: 100 mls/hr Dexmedetomidine HCl 200 mcg/ (Sodium Chloride) 50 mls @ 4.46 mls/hr IV TITR PRN ; Protocol; 0.2 MCG/KG/HR PRN Reason: Agitation Last Admin: 11/03/16 10:24 Dose: 0.96 mcg/kg/hr, 21.5 mls/hr Norepinephrine Bitartrate 4 mg (/ Dextrose) 254 mls @ 15.24 mls/hr IV .[id number] PRN; Protocol; 4 MCG/MIN PRN Reason: TITRATE PER MD ORDER Last Admin: 11/03/16 11:10 Dose: 4 mcg/min, 15.24 mls/hr Insulin Human Regular (Novolin R) 0 unit SC Q6 [facility] PRN Reason: Protocol Last Admin: 11/03/16 06:19 Dose: 2 unit Lactic Acid (Lac-Hydrin 12% Lotion (225 G)) 0 gm EXT BID [facility] Last Admin: 11/03/16 09:25 Dose: 1 applic Methylprednisolone (Solu-Medrol) 40 mg IV DAILY [facility] Last Admin: 11/03/16 09:22 Dose: 40 mg Midazolam HCl (Versed Inj) 2 mg IVP Q4H PRN PRN Reason: Agitation Last Admin: 10/25/16 08:45 Dose: 2 mg Multivitamins/Vitamin C (Multi-Delyn Liquid) 5 ml PO DAILY [facility] Last Admin: 11/03/16 09:23 Dose: 5 ml Nystatin (Nystop Topical Powder) 1 applic TOP BID [facility] Stop: 11/09/16 10:00 Last Admin: 11/03/16 09:25 Dose: 1 applic Pantoprazole Sodium (Protonix Inj) 40 mg IVP DAILY [facility] Last Admin: 11/03/16 09:22 Dose: 40 mg Sevelamer Carbonate (Renvela) 2.4 gm NG TIDCC [facility] Last Admin: 11/03/16 08:23 Dose: 2.4 gm - Labs Labs: 11/03/16 06:22 11/03/16 06:22 PT 17.7 SECONDS (9.7-12.2) H 10/29/16 06:22 INR 1.6 10/29/16 06:22 APTT 30 SECONDS (21-34) 10/29/16 06:22 - Head Exam Head Exam: ATRAUMATIC, NORMOCEPHALIC - Eye Exam Eye Exam: Normal appearance - ENT Exam ENT Exam: Normal Exam - Neck Exam Neck Exam: Normal Inspection - Respiratory Exam Respiratory Exam: Chest Wall Tenderness Additional comments: Chest tube in place. Bilateral air entry - GI/Abdominal Exam GI & Abdominal Exam: Soft, Normal Bowel Sounds - Extremities Exam Extremities Exam: absent: Pedal Edema Assessment and Plan (1) Alcohol withdrawal Status: Acute (2) Hypoxemia Status: Acute (3) Pneumonia Status: Acute (4) Respiratory distress Status: Acute (5) Seizure disorder Status: Acute (6) Sepsis Status: Acute (7) Thrombocythemia Status: Chronic (8) Psoriasis Status: Acute (9) Renal failure Status: Acute (10) Spontaneous pneumothorax Status: Acute - Assessment and Plan (Free Text) Plan: Patient is intubated and sedated. Weaning trial as per ICU team. Continue antibiotics for sepsis/pneumonia Patient has spontaneous pneumothorax for which a left-sided chest tubes present. Continue hemodialysis as per renal. Patient is on GI and prophylaxis. Discussed the plan of care with the ICU team.
--- NOTE | 2016-11-03 15:16 | CP.CCUPN ---
<Zoey Chavez - Last Filed: 11/03/16 15:03> CCU Subjective - Physician Review Subjective (Free Text): Patient was seen and examined at bedside in the morning. Patient is alert. Patient is intubated and unable to respond to review of systems. As per the nurse, patient is having diarrhea. 11/03/16 15:04 CCU Objective - Vital Signs / Intake & Output Vital Signs (Last 4 hours): Vital Signs Pulse Resp BP Pulse Ox 11/03/16 13:19 82 15 114/65 90 L 11/03/16 12:20 84 13 130/77 92 L 11/03/16 11:19 86 13 114/71 95 11/03/16 11:10 86 13 93/52 L 95 Intake and Output (Last 8hrs): Intake & Output 11/03/16 11/03/16 11/03/16 06:59 14:59 22:59 Intake Total 1956.3 698.1 Output Total 50 0 Balance 1906.3 698.1 Intake: IV 285 199 Intake, IV Amount 1271.3 99.1 Right Proximal Port 100 Internal Jugular Right jugular TLC distal 1000 53.2 port Right jugular TLC medial 171.3 45.9 port Tube Feeding 400 400 Output: Chest Tube Drainage 10 Left Mid-Axillary Chest 10 Urine 40 0 Urethral (Walters) 40 0 Other: # Bowel Movements 0 0 - Physical Exam Head: Positive for: Atraumatic, Normocephalic Extroacular Muscles: Negative for: EOMI Mouth: Positive for: Dry Respiratory/Chest: Positive for: Decreased Breath Sounds, Other (intubated ) Cardiovascular: Positive for: Regular Rate and Rhythm, Normal S1, S2 Abdomen: Positive for: Distention, Normal Bowel Sounds Genitourinary Male: Positive for: Other (walters in place) Upper Extremity: Negative for: Edema Lower Extremity: Negative for: Edema Neurological: Negative for: GCS=15, Speech Normal (patient is intubated and sedated ) Skin: Positive for: Other (Psoriasis located on b/l knees, bilateral upper extremities) Psychiatric: Positive for: Alert (patient is sedated and intubated ) - Medications Active Medications: Active Medications Generic Name Dose Route Start Last Admin Trade Name Freq PRN Reason Stop Dose Admin Acetaminophen 650 mg 10/25/16 11:56 11/02/16 23:46 Tylenol 650mg/20.3ml Solution Ud PO 650 mg Q6 PRN Administration Temperature Albumin Human 12.5 gm 10/26/16 18:45 10/27/16 12:01 Albumin Human 25% (12.5 Gm/50 Ml) IV Not Given Q8H MIRA Albuterol Sulfate 2.5 mg 10/31/16 14:00 11/03/16 13:26 Albuterol 0.083% Inhal Nikky (2.5 Mg/3 Ml) Ud INH 2.5 mg RQ6 MIRA Administration Epoetin Humphrey 10,000 unit 11/02/16 14:45 11/02/16 15:15 Procrit IV 10,000 unit [facility] MIRA Administration Ferric Sodium Gluconate Complex 125 mg 11/02/16 10:12 11/03/16 09:22 Ferrlecit IVPB 11/10/16 10:13 125 mg DAILY MIRA Administration Heparin Sodium (Porcine) 3,700 units 11/02/16 15:30 11/02/16 16:00 Heparin IVP 3,700 units F MIRA Administration Propofol 1,000 mg in 100 mls @ 2.775 mls/hr 10/31/16 09:51 11/03/16 12:30 Diprivan IV 18.55 mcg/kg/min .Q24H PRN 10.3 mls/hr TITRATE PER MD ORDER Titration Protocol 5 MCG/KG/MIN Micafungin Sodium 100 mg/ 100 mls @ 100 mls/hr 11/01/16 17:30 11/02/16 17:20 Sodium Chloride IV 100 mls/hr Q24H MIRA Administration Meropenem 500 mg/ Sodium 100 mls @ 100 mls/hr 11/01/16 17:45 11/03/16 06:19 Chloride IVPB 100 mls/hr Q12H MIRA Administration Dexmedetomidine HCl 200 mcg/ 50 mls @ 4.46 mls/hr 11/03/16 08:09 11/03/16 13: 05 Sodium Chloride IV 0.5 mcg/kg/hr TITR PRN 11.15 mls/hr Agitation Administration Protocol 0.2 MCG/KG/HR Norepinephrine Bitartrate 4 mg 254 mls @ 15.24 mls/hr 11/03/16 10:47 12:56 / Dextrose IV 3 mcg/min .[id number] PRN 11.43 mls/hr TITRATE PER MD ORDER Titration Protocol 4 MCG/MIN Insulin Human Regular 0 unit 11/01/16 12:00 11/03/16 12:43 Novolin R SC 2 unit Q6 MIRA Administration Protocol Lactic Acid 0 gm 10/22/16 13:00 11/03/16 09:25 Lac-Hydrin 12% Lotion (225 G) EXT 1 applic BID MIRA Administration Methylprednisolone 40 mg 11/03/16 10:00 11/03/16 09:22 Solu-Medrol IV 40 mg DAILY MIRA Administration Midazolam HCl 2 mg 10/22/16 19:22 10/25/16 08:45 Versed Inj IVP 2 mg Q4H PRN Administration Agitation Multivitamins/Vitamin C 5 ml 11/02/16 10:15 11/03/16 09:23 Multi-Delyn Liquid PO 5 ml DAILY MIRA Administration Nystatin 1 applic 10/26/16 10:00 11/03/16 09:25 Nystop Topical Powder TOP 11/09/16 10:00 1 applic BID MIRA Administration Pantoprazole Sodium 40 mg 10/26/16 10:00 11/03/16 09:22 Protonix Inj IVP 40 mg DAILY MIRA Administration Sevelamer Carbonate 2.4 gm 11/01/16 12:00 11/03/16 13:07 Renvela NG 2.4 gm TIDCC MIRA Administration - Patient Studies Lab Studies: Microbiology Studies 11/01/16 17:29 Blood Culture - Preliminary Blood-Venous NO GROWTH AFTER 24 HOURS 11/01/16 17:29 Blood Culture - Preliminary Blood-Venous NO GROWTH AFTER 24 HOURS 10/28/16 21:00 Blood Culture - Final Blood-During Dialysis NO GROWTH AFTER 5 DAYS Gram Stain - Final 10/28/16 21:30 Blood Culture - Final Blood-During Dialysis NO GROWTH AFTER 5 DAYS Gram Stain - Final TEST NOT PERFORMED 11/01/16 17:30 Gram Stain - Final Trachasp Lab Studies 11/03/16 11/03/16 11/03/16 Range/Units 11:24 06:22 06:22 WBC 17.0 H (4.8-10.8) K/uL RBC 2.52 L (4.40-5.90) Mil/uL Hgb 8.2 L (12.0-18.0) g/dL Hct 24.6 L (35.0-51.0) % MCV 97.5 H (80.0-94.0) fL MCH 32.4 H (27.0-31.0) pg MCHC 33.2 (33.0-37.0) g/dL RDW 15.1 H (11.5-14.5) % Plt Count 104 L (130-400) K/uL MPV 11.6 (7.2-11.7) fL Neut % (Auto) 90.9 H (50.0-75.0) % Lymph % (Auto) 3.7 L (20.0-40.0) % [place] % (Auto) 2.5 (0.0-10.0) % Eos % (Auto) 2.8 (0.0-4.0) % Baso % (Auto) 0.1 (0.0-2.0) % Neut # 15.5 H (1.8-7.0) K/uL Lymph # 0.6 L (1.0-4.3) K/uL [place] # 0.4 (0.0-0.8) K/uL Eos # 0.5 (0.0-0.7) K/uL Baso # 0.0 (0.0-0.2) K/uL Neutrophils % (Manual) 91 H (50-75) % Band Neutrophils % 4 H (0-2) % Lymphocytes % (Manual) 2 L (20-40) % Monocytes % (Manual) 2 (0-10) % Eosinophils % (Manual) 1 (0-4) % Platelet Estimate Slightly decreased L (NORMAL) Hypochromasia (manual) Slight Poikilocytosis (manual Slight Basophilic Stippling Slight Anisocytosis (manual) Slight Tear Drop Cells Slight Puncture Site pCO2 (35-45) mm/Hg pO2 (80-100) mm/Hg HCO3 (21-28) mmol/L ABG pH (7.35-7.45) ABG Total CO2 (22-28) mmol/L ABG O2 Saturation (95-98) % ABG Base Excess (-2.0-3.0) mmol/L ABG Hemoglobin (11.7-17.4) g/dL ABG Carboxyhemoglobin (0.5-1.5) % POC ABG HHb (Measured) (0.0-5.0) % ABG Methemoglobin (0.0-3.0) % Nicolas Test A-a O2 Difference mm/Hg Respiratory Index Hgb O2 Saturation (95.0-98.0) % Vent Mode Mechanical Rate FiO2 % Tidal Volume PEEP Sodium 141 (132-148) mmol/L Potassium 3.5 L (3.6-5.2) mmol/L Chloride 97 L (98-107) mmol/L Carbon Dioxide 28 (22-30) mmol/L Anion Gap 20 (10-20) BUN 77 H (9-20) mg/dL Creatinine 4.0 H (0.8-1.5) MG/DL Est GFR ( Amer) 20 Est GFR (Non-Af Amer) 16 POC Glucose (mg/dL) 219 H (65-110) mg/dL Random Glucose 163 H (75-110) mg/dL Calcium 7.0 L (8.6-10.4) mg/dl Phosphorus 5.8 H (2.5-4.5) mg/dL Magnesium 2.2 (1.6-2.3) mg/dL Total Bilirubin 1.4 H (0.2-1.3) mg/dL AST 71 H D (17-59) U/L ALT 72 (21-72) U/L Alkaline Phosphatase 116 (38-126) U/L Total Protein 5.6 L (6.3-8.3) g/dL Albumin 2.7 L (3.5-5.0) g/dL Globulin 2.9 (2.2-3.9) gm/dL Albumin/Globulin Ratio 0.9 L (1.0-2.1) Stool Occult Blood (NEGATIVE) Heparin-induced Plt Ab (Negative) 11/03/16 11/03/16 11/03/16 Range/Units 06:16 05:33 00:01 WBC (4.8-10.8) K/uL RBC (4.40-5.90) Mil/uL Hgb (12.0-18.0) g/dL Hct (35.0-51.0) % MCV (80.0-94.0) fL MCH (27.0-31.0) pg MCHC (33.0-37.0) g/dL RDW (11.5-14.5) % Plt Count (130-400) K/uL MPV (7.2-11.7) fL Neut % (Auto) (50.0-75.0) % Lymph % (Auto) (20.0-40.0) % [place] % (Auto) (0.0-10.0) % Eos % (Auto) (0.0-4.0) % Baso % (Auto) (0.0-2.0) % Neut # (1.8-7.0) K/uL Lymph # (1.0-4.3) K/uL [place] # (0.0-0.8) K/uL Eos # (0.0-0.7) K/uL Baso # (0.0-0.2) K/uL Neutrophils % (Manual) (50-75) % Band Neutrophils % (0-2) % Lymphocytes % (Manual) (20-40) % Monocytes % (Manual) (0-10) % Eosinophils % (Manual) (0-4) % Platelet Estimate (NORMAL) Hypochromasia (manual) Poikilocytosis (manual Basophilic Stippling Anisocytosis (manual) Tear Drop Cells Puncture Site Rr pCO2 39 (35-45) mm/Hg pO2 68 L (80-100) mm/Hg HCO3 26.6 (21-28) mmol/L ABG pH 7.44 (7.35-7.45) ABG Total CO2 27.7 (22-28) mmol/L ABG O2 Saturation 96.8 (95-98) % ABG Base Excess 2.2 (-2.0-3.0) mmol/L ABG Hemoglobin 8.8 L (11.7-17.4) g/dL ABG Carboxyhemoglobin 2.0 H (0.5-1.5) % POC ABG HHb (Measured) 3.1 (0.0-5.0) % ABG Methemoglobin 1.4 (0.0-3.0) % Nicolas Test Pos A-a O2 Difference 382.0 mm/Hg Respiratory Index 5.6 Hgb O2 Saturation 93.6 L (95.0-98.0) % Vent Mode Prvc Mechanical Rate 24 FiO2 70.0 % Tidal Volume 400 PEEP 5 Sodium (132-148) mmol/L Potassium (3.6-5.2) mmol/L Chloride (98-107) mmol/L Carbon Dioxide (22-30) mmol/L Anion Gap (10-20) BUN (9-20) mg/dL Creatinine (0.8-1.5) MG/DL Est GFR ( Amer) Est GFR (Non-Af Amer) POC Glucose (mg/dL) 200 H 155 H (65-110) mg/dL Random Glucose (75-110) mg/dL Calcium (8.6-10.4) mg/dl Phosphorus (2.5-4.5) mg/dL Magnesium (1.6-2.3) mg/dL Total Bilirubin (0.2-1.3) mg/dL AST (17-59) U/L ALT (21-72) U/L Alkaline Phosphatase (38-126) U/L Total Protein (6.3-8.3) g/dL Albumin (3.5-5.0) g/dL Globulin (2.2-3.9) gm/dL Albumin/Globulin Ratio (1.0-2.1) Stool Occult Blood (NEGATIVE) Heparin-induced Plt Ab (Negative) 11/02/16 11/02/16 10/30/16 Range/Units 18:38 17:46 04:58 WBC (4.8-10.8) K/uL RBC (4.40-5.90) Mil/uL Hgb (12.0-18.0) g/dL Hct (35.0-51.0) % MCV (80.0-94.0) fL MCH (27.0-31.0) pg MCHC (33.0-37.0) g/dL RDW (11.5-14.5) % Plt Count (130-400) K/uL MPV (7.2-11.7) fL Neut % (Auto) (50.0-75.0) % Lymph % (Auto) (20.0-40.0) % [place] % (Auto) (0.0-10.0) % Eos % (Auto) (0.0-4.0) % Baso % (Auto) (0.0-2.0) % Neut # (1.8-7.0) K/uL Lymph # (1.0-4.3) K/uL [place] # (0.0-0.8) K/uL Eos # (0.0-0.7) K/uL Baso # (0.0-0.2) K/uL Neutrophils % (Manual) (50-75) % Band Neutrophils % (0-2) % Lymphocytes % (Manual) (20-40) % Monocytes % (Manual) (0-10) % Eosinophils % (Manual) (0-4) % Platelet Estimate (NORMAL) Hypochromasia (manual) Poikilocytosis (manual Basophilic Stippling Anisocytosis (manual) Tear Drop Cells Puncture Site pCO2 (35-45) mm/Hg pO2 (80-100) mm/Hg HCO3 (21-28) mmol/L ABG pH (7.35-7.45) ABG Total CO2 (22-28) mmol/L ABG O2 Saturation (95-98) % ABG Base Excess (-2.0-3.0) mmol/L ABG Hemoglobin (11.7-17.4) g/dL ABG Carboxyhemoglobin (0.5-1.5) % POC ABG HHb (Measured) (0.0-5.0) % ABG Methemoglobin (0.0-3.0) % Nicolas Test A-a O2 Difference mm/Hg Respiratory Index Hgb O2 Saturation (95.0-98.0) % Vent Mode Mechanical Rate FiO2 % Tidal Volume PEEP Sodium (132-148) mmol/L Potassium (3.6-5.2) mmol/L Chloride (98-107) mmol/L Carbon Dioxide (22-30) mmol/L Anion Gap (10-20) BUN (9-20) mg/dL Creatinine (0.8-1.5) MG/DL Est GFR ( Amer) Est GFR (Non-Af Amer) POC Glucose (mg/dL) 152 H (65-110) mg/dL Random Glucose (75-110) mg/dL Calcium (8.6-10.4) mg/dl Phosphorus (2.5-4.5) mg/dL Magnesium (1.6-2.3) mg/dL Total Bilirubin (0.2-1.3) mg/dL AST (17-59) U/L ALT (21-72) U/L Alkaline Phosphatase (38-126) U/L Total Protein (6.3-8.3) g/dL Albumin (3.5-5.0) g/dL Globulin (2.2-3.9) gm/dL Albumin/Globulin Ratio (1.0-2.1) Stool Occult Blood Negative (NEGATIVE) Heparin-induced Plt Ab Negative (Negative) Laboratory Results - last 24 hr 10/30/16 11/02/16 11/02/16 04:58 17:46 18:38 WBC RBC Hgb Hct MCV MCH MCHC RDW Plt Count MPV Neut % (Auto) Lymph % (Auto) [place] % (Auto) Eos % (Auto) Baso % (Auto) Neut # Lymph # [place] # Eos # Baso # Neutrophils % (Manual) Band Neutrophils % Lymphocytes % (Manual) Monocytes % (Manual) Eosinophils % (Manual) Platelet Estimate Hypochromasia (manual) Poikilocytosis (manual Basophilic Stippling Anisocytosis (manual) Tear Drop Cells Puncture Site pCO2 pO2 HCO3 ABG pH ABG Total CO2 ABG O2 Saturation ABG Base Excess ABG Hemoglobin ABG Carboxyhemoglobin POC ABG HHb (Measured) ABG Methemoglobin Nicolas Test A-a O2 Difference Respiratory Index Hgb O2 Saturation Vent Mode Mechanical Rate FiO2 Tidal Volume PEEP Sodium Potassium Chloride Carbon Dioxide Anion Gap BUN Creatinine Est GFR ( Amer) Est GFR (Non-Af Amer) POC Glucose (mg/dL) 152 H Random Glucose Calcium Phosphorus Magnesium Total Bilirubin AST ALT Alkaline Phosphatase Total Protein Albumin Globulin Albumin/Globulin Ratio Stool Occult Blood Negative Heparin-induced Plt Ab Negative 11/03/16 11/03/16 11/03/16 00:01 05:33 06:16 WBC RBC Hgb Hct MCV MCH MCHC RDW Plt Count MPV Neut % (Auto) Lymph % (Auto) [place] % (Auto) Eos % (Auto) Baso % (Auto) Neut # Lymph # [place] # Eos # Baso # Neutrophils % (Manual) Band Neutrophils % Lymphocytes % (Manual) Monocytes % (Manual) Eosinophils % (Manual) Platelet Estimate Hypochromasia (manual) Poikilocytosis (manual Basophilic Stippling Anisocytosis (manual) Tear Drop Cells Puncture Site Rr pCO2 39 pO2 68 L HCO3 26.6 ABG pH 7.44 ABG Total CO2 27.7 ABG O2 Saturation 96.8 ABG Base Excess 2.2 ABG Hemoglobin 8.8 L ABG Carboxyhemoglobin 2.0 H POC ABG HHb (Measured) 3.1 ABG Methemoglobin 1.4 Nicolas Test Pos A-a O2 Difference 382.0 Respiratory Index 5.6 Hgb O2 Saturation 93.6 L Vent Mode Prvc Mechanical Rate 24 FiO2 70.0 Tidal Volume 400 PEEP 5 Sodium Potassium Chloride Carbon Dioxide Anion Gap BUN Creatinine Est GFR ( Amer) Est GFR (Non-Af Amer) POC Glucose (mg/dL) 155 H 200 H Random Glucose Calcium Phosphorus Magnesium Total Bilirubin AST ALT Alkaline Phosphatase Total Protein Albumin Globulin Albumin/Globulin Ratio Stool Occult Blood Heparin-induced Plt Ab 11/03/16 11/03/16 11/03/16 06:22 06:22 11:24 WBC 17.0 H RBC 2.52 L Hgb 8.2 L Hct 24.6 L MCV 97.5 H MCH 32.4 H MCHC 33.2 RDW 15.1 H Plt Count 104 L MPV 11.6 Neut % (Auto) 90.9 H Lymph % (Auto) 3.7 L [place] % (Auto) 2.5 Eos % (Auto) 2.8 Baso % (Auto) 0.1 Neut # 15.5 H Lymph # 0.6 L [place] # 0.4 Eos # 0.5 Baso # 0.0 Neutrophils % (Manual) 91 H Band Neutrophils % 4 H Lymphocytes % (Manual) 2 L Monocytes % (Manual) 2 Eosinophils % (Manual) 1 Platelet Estimate Slightly decreased L Hypochromasia (manual) Slight Poikilocytosis (manual Slight Basophilic Stippling Slight Anisocytosis (manual) Slight Tear Drop Cells Slight Puncture Site pCO2 pO2 HCO3 ABG pH ABG Total CO2 ABG O2 Saturation ABG Base Excess ABG Hemoglobin ABG Carboxyhemoglobin POC ABG HHb (Measured) ABG Methemoglobin Nicolas Test A-a O2 Difference Respiratory Index Hgb O2 Saturation Vent Mode Mechanical Rate FiO2 Tidal Volume PEEP Sodium 141 Potassium 3.5 L Chloride 97 L Carbon Dioxide 28 Anion Gap 20 BUN 77 H Creatinine 4.0 H Est GFR ( Amer) 20 Est GFR (Non-Af Amer) 16 POC Glucose (mg/dL) 219 H Random Glucose 163 H Calcium 7.0 L Phosphorus 5.8 H Magnesium 2.2 Total Bilirubin 1.4 H AST 71 H D ALT 72 Alkaline Phosphatase 116 Total Protein 5.6 L Albumin 2.7 L Globulin 2.9 Albumin/Globulin Ratio 0.9 L Stool Occult Blood Heparin-induced Plt Ab Fingerstick Blood Sugar Results: 219 Review of Systems - Review of Systems Systems not reviewed;Unavailable: Intubated Critical Care Progress Note - Vent Settings TIDAL VOLUME:: 400 RESP RATE:: 24 FIO2:: 60 PEEP:: 5 Assessment/Plan - Assessment and Plan (Free Text) Assessment: 45 year old male with medical history of alcoholism, presents to the ED with complaint of worsening cough, abdominal pain for seven days. Neuro: - Neurology Consult: Dr. Pineda --> help appreciated - Chronic alcohol abuse - Sedated - Propofol 1,000mg - Precedex 200mcg - 2mg Midazolam - After permacath (10/30) changed to Midazolam PRN Pulm: - Intubated - Hypoxic on vent secondary to ARDS - chest x-ray (10/29): Small left apical pneumothorax - pigtail catheter was inserted in the left lung by pulm Dr. Gomez --> help appreciated - keep pigtail catheter until extubation - Severe ARDS - Vent Settings: FiO2 100; Peep 10; Tidal Volume: 400 - Vent settings changed on 11/02: FiO2 60, Peep 5, Tidal Volume 400 - Trachasp/sputum cx: pending CV: - Norepinephrine - PICC line placement - Hypotensive, systolic in the 80s (11/03): norephinephrine 4mg in dextrose Heme: - Thrombocytopenia - Plateletphresis: 1 unit (10/23) - Plateletphresis: 1 unit (10/28) - Plateletphresis: 1 unit (10/29) - Plateletphresis: 1 unit (10/30) - Platelets: 62 - Platelets on 11/02 & 11/03: 104 - Monitor - HIT AB- negative Renal: - Walters placed 10/21 - Monitor - Dialysis started 10/23 - Permacath placement 10/30 - Vascular Surgery Consult: Dr. De La Vega --> help appreciated - Nephrology Consult: Dr. Merida --> help appreciated - Dialysis TTS Endo: - Monitor - No acute issues GI: - Tube Feeding - Diarrhea, as per the nurse - Stool occult: negative - C. Diff: f/u ID: - Sepsis due to Pneumonia - Blood culture: Strep Pneumoniae - Zosyn stopped 10/22 - Ceftriaxone started 10/22 - Vanco: 1gm dose given 10/30; f/u 500mg after dialysis - Vanco random 11/02: 10.70 - ID Consult: Dr. Bowers --> help appreciated - repeat blood cultures have been negative for 24 hours - Trachasp/sputum cx: pending - Bands on 11/03: 4 (at admission, 48) DVT proph - SCDs; heparin held due to permacath placement - restart heparin q12 after GI proph - Pepcid 20mg PO Daily Code status - full code <Osmani Gomez S - Last Filed: 11/03/16 18:23> CCU Objective - Vital Signs / Intake & Output Vital Signs (Last 4 hours): Vital Signs Pulse Resp BP Pulse Ox 11/03/16 15:19 77 17 116/70 91 L Intake and Output (Last 8hrs): Intake & Output 11/03/16 11/03/16 11/03/16 06:59 14:59 22:59 Intake Total 1956.3 841.1 271.7 Output Total 50 375 100 Balance 1906.3 466.1 171.7 Weight 189 lb 6.033 oz Intake: IV 285 210 180 Intake, IV Amount 1271.3 231.1 41.7 Right Proximal Port 100 56.0 22.8 Internal Jugular Right jugular TLC distal 1000 53.2 18.9 port Right jugular TLC medial 171.3 121.9 0 port Tube Feeding 400 400 50 Output: Chest Tube Drainage 10 Left Mid-Axillary Chest 10 Urine 40 375 100 Urethral (Walters) 40 375 100 Other: # Bowel Movements 0 1 - Medications Active Medications: Active Medications Generic Name Dose Route Start Last Admin Trade Name Freq PRN Reason Stop Dose Admin Acetaminophen 650 mg 10/25/16 11:56 11/02/16 23:46 Tylenol 650mg/20.3ml Solution Ud PO 650 mg Q6 PRN Administration Temperature Albumin Human 12.5 gm 10/26/16 18:45 10/27/16 12:01 Albumin Human 25% (12.5 Gm/50 Ml) IV Not Given Q8H MIRA Albuterol Sulfate 2.5 mg 10/31/16 14:00 11/03/16 13:26 Albuterol 0.083% Inhal Nikky (2.5 Mg/3 Ml) Ud INH 2.5 mg RQ6 MIRA Administration Epoetin Humphrey 10,000 unit 11/02/16 14:45 11/02/16 15:15 Procrit IV 10,000 unit MWF MIRA Administration Ferric Sodium Gluconate Complex 125 mg 11/02/16 10:12 11/03/16 09:22 Ferrlecit IVPB 11/10/16 10:13 125 mg DAILY MIRA Administration Heparin Sodium (Porcine) 3,700 units 11/02/16 15:30 11/02/16 16:00 Heparin IVP 3,700 units MWF MIRA Administration Propofol 1,000 mg in 100 mls @ 2.775 mls/hr 10/31/16 09:51 11/03/16 18:04 Diprivan IV 22.52 mcg/kg/min .Q24H PRN 12.5 mls/hr TITRATE PER MD ORDER Administration Protocol 5 MCG/KG/MIN Micafungin Sodium 100 mg/ 100 mls @ 100 mls/hr 11/01/16 17:30 11/03/16 18:06 Sodium Chloride IV 100 mls/hr Q24H MIRA Administration Meropenem 500 mg/ Sodium 100 mls @ 100 mls/hr 11/01/16 17:45 11/03/16 17:30 Chloride IVPB 100 mls/hr Q12H MIRA Administration Dexmedetomidine HCl 200 mcg/ 50 mls @ 4.46 mls/hr 11/03/16 08:09 11/03/16 14: 00 Sodium Chloride IV 0 mcg/kg/hr TITR PRN 0 mls/hr Agitation Titration Protocol 0.2 MCG/KG/HR Norepinephrine Bitartrate 4 mg 254 mls @ 15.24 mls/hr 11/03/16 10:47 16:30 / Dextrose IV 2 mcg/min .[id number] PRN 7.62 mls/hr TITRATE PER MD ORDER Titration Protocol 4 MCG/MIN Insulin Human Regular 0 unit 11/01/16 12:00 11/03/16 17:41 Novolin R SC 2 unit Q6 MIRA Administration Protocol Lactic Acid 0 gm 10/22/16 13:00 11/03/16 17:44 Lac-Hydrin 12% Lotion (225 G) EXT 1 applic BID MIRA Administration Methylprednisolone 40 mg 11/03/16 10:00 11/03/16 09:22 Solu-Medrol IV 40 mg DAILY MIRA Administration Midazolam HCl 2 mg 10/22/16 19:22 10/25/16 08:45 Versed Inj IVP 2 mg Q4H PRN Administration Agitation Multivitamins/Vitamin C 5 ml 11/02/16 10:15 11/03/16 09:23 Multi-Delyn Liquid PO 5 ml DAILY MIRA Administration Nystatin 1 applic 10/26/16 10:00 11/03/16 17:45 Nystop Topical Powder TOP 11/09/16 10:00 1 applic BID MIRA Administration Pantoprazole Sodium 40 mg 10/26/16 10:00 11/03/16 09:22 Protonix Inj IVP 40 mg DAILY MIRA Administration Sevelamer Carbonate 2.4 gm 11/01/16 12:00 11/03/16 17:44 Renvela NG 2.4 gm TIDCC MIRA Administration - Patient Studies Lab Studies: Microbiology Studies 11/01/16 17:29 Blood Culture - Preliminary Blood-Venous NO GROWTH AFTER 24 HOURS 11/01/16 17:29 Blood Culture - Preliminary Blood-Venous NO GROWTH AFTER 24 HOURS 10/28/16 21:00 Blood Culture - Final Blood-During Dialysis NO GROWTH AFTER 5 DAYS Gram Stain - Final 10/28/16 21:30 Blood Culture - Final Blood-During Dialysis NO GROWTH AFTER 5 DAYS Gram Stain - Final TEST NOT PERFORMED 11/01/16 17:30 Gram Stain - Final Trachasp Lab Studies 11/03/16 11/03/16 11/03/16 Range/Units 17:34 14:50 11:24 WBC (4.8-10.8) K/uL RBC (4.40-5.90) Mil/uL Hgb (12.0-18.0) g/dL Hct (35.0-51.0) % MCV (80.0-94.0) fL MCH (27.0-31.0) pg MCHC (33.0-37.0) g/dL RDW (11.5-14.5) % Plt Count (130-400) K/uL MPV (7.2-11.7) fL Neut % (Auto) (50.0-75.0) % Lymph % (Auto) (20.0-40.0) % [place] % (Auto) (0.0-10.0) % Eos % (Auto) (0.0-4.0) % Baso % (Auto) (0.0-2.0) % Neut # (1.8-7.0) K/uL Lymph # (1.0-4.3) K/uL [place] # (0.0-0.8) K/uL Eos # (0.0-0.7) K/uL Baso # (0.0-0.2) K/uL Neutrophils % (Manual) (50-75) % Band Neutrophils % (0-2) % Lymphocytes % (Manual) (20-40) % Monocytes % (Manual) (0-10) % Eosinophils % (Manual) (0-4) % Platelet Estimate (NORMAL) Hypochromasia (manual) Poikilocytosis (manual Basophilic Stippling Anisocytosis (manual) Tear Drop Cells Puncture Site pCO2 (35-45) mm/Hg pO2 (80-100) mm/Hg HCO3 (21-28) mmol/L ABG pH (7.35-7.45) ABG Total CO2 (22-28) mmol/L ABG O2 Saturation (95-98) % ABG Base Excess (-2.0-3.0) mmol/L ABG Hemoglobin (11.7-17.4) g/dL ABG Carboxyhemoglobin (0.5-1.5) % POC ABG HHb (Measured) (0.0-5.0) % ABG Methemoglobin (0.0-3.0) % Nicolas Test A-a O2 Difference mm/Hg Respiratory Index Hgb O2 Saturation (95.0-98.0) % Vent Mode Mechanical Rate FiO2 % Tidal Volume PEEP Sodium (132-148) mmol/L Potassium (3.6-5.2) mmol/L Chloride (98-107) mmol/L Carbon Dioxide (22-30) mmol/L Anion Gap (10-20) BUN (9-20) mg/dL Creatinine (0.8-1.5) MG/DL Est GFR ( Amer) Est GFR (Non-Af Amer) POC Glucose (mg/dL) 220 H 219 H (65-110) mg/dL Random Glucose (75-110) mg/dL Calcium (8.6-10.4) mg/dl Phosphorus (2.5-4.5) mg/dL Magnesium (1.6-2.3) mg/dL Total Bilirubin (0.2-1.3) mg/dL AST (17-59) U/L ALT (21-72) U/L Alkaline Phosphatase (38-126) U/L Total Protein (6.3-8.3) g/dL Albumin (3.5-5.0) g/dL Globulin (2.2-3.9) gm/dL Albumin/Globulin Ratio (1.0-2.1) Stool Occult Blood (NEGATIVE) C. difficile Ag & Toxin Negative (NEGATIVE) 11/03/16 11/03/16 11/03/16 Range/Units 06:22 06:22 06:16 WBC 17.0 H (4.8-10.8) K/uL RBC 2.52 L (4.40-5.90) Mil/uL Hgb 8.2 L (12.0-18.0) g/dL Hct 24.6 L (35.0-51.0) % MCV 97.5 H (80.0-94.0) fL MCH 32.4 H (27.0-31.0) pg MCHC 33.2 (33.0-37.0) g/dL RDW 15.1 H (11.5-14.5) % Plt Count 104 L (130-400) K/uL MPV 11.6 (7.2-11.7) fL Neut % (Auto) 90.9 H (50.0-75.0) % Lymph % (Auto) 3.7 L (20.0-40.0) % [place] % (Auto) 2.5 (0.0-10.0) % Eos % (Auto) 2.8 (0.0-4.0) % Baso % (Auto) 0.1 (0.0-2.0) % Neut # 15.5 H (1.8-7.0) K/uL Lymph # 0.6 L (1.0-4.3) K/uL [place] # 0.4 (0.0-0.8) K/uL Eos # 0.5 (0.0-0.7) K/uL Baso # 0.0 (0.0-0.2) K/uL Neutrophils % (Manual) 91 H (50-75) % Band Neutrophils % 4 H (0-2) % Lymphocytes % (Manual) 2 L (20-40) % Monocytes % (Manual) 2 (0-10) % Eosinophils % (Manual) 1 (0-4) % Platelet Estimate Slightly decreased L (NORMAL) Hypochromasia (manual) Slight Poikilocytosis (manual Slight Basophilic Stippling Slight Anisocytosis (manual) Slight Tear Drop Cells Slight Puncture Site pCO2 (35-45) mm/Hg pO2 (80-100) mm/Hg HCO3 (21-28) mmol/L ABG pH (7.35-7.45) ABG Total CO2 (22-28) mmol/L ABG O2 Saturation (95-98) % ABG Base Excess (-2.0-3.0) mmol/L ABG Hemoglobin (11.7-17.4) g/dL ABG Carboxyhemoglobin (0.5-1.5) % POC ABG HHb (Measured) (0.0-5.0) % ABG Methemoglobin (0.0-3.0) % Nicolas Test A-a O2 Difference mm/Hg Respiratory Index Hgb O2 Saturation (95.0-98.0) % Vent Mode Mechanical Rate FiO2 % Tidal Volume PEEP Sodium 141 (132-148) mmol/L Potassium 3.5 L (3.6-5.2) mmol/L Chloride 97 L (98-107) mmol/L Carbon Dioxide 28 (22-30) mmol/L Anion Gap 20 (10-20) BUN 77 H (9-20) mg/dL Creatinine 4.0 H (0.8-1.5) MG/DL Est GFR ( Amer) 20 Est GFR (Non-Af Amer) 16 POC Glucose (mg/dL) 200 H (65-110) mg/dL Random Glucose 163 H (75-110) mg/dL Calcium 7.0 L (8.6-10.4) mg/dl Phosphorus 5.8 H (2.5-4.5) mg/dL Magnesium 2.2 (1.6-2.3) mg/dL Total Bilirubin 1.4 H (0.2-1.3) mg/dL AST 71 H D (17-59) U/L ALT 72 (21-72) U/L Alkaline Phosphatase 116 (38-126) U/L Total Protein 5.6 L (6.3-8.3) g/dL Albumin 2.7 L (3.5-5.0) g/dL Globulin 2.9 (2.2-3.9) gm/dL Albumin/Globulin Ratio 0.9 L (1.0-2.1) Stool Occult Blood (NEGATIVE) C. difficile Ag & Toxin (NEGATIVE) 11/03/16 11/03/16 11/02/16 Range/Units 05:33 00:01 18:38 WBC (4.8-10.8) K/uL RBC (4.40-5.90) Mil/uL Hgb (12.0-18.0) g/dL Hct (35.0-51.0) % MCV (80.0-94.0) fL MCH (27.0-31.0) pg MCHC (33.0-37.0) g/dL RDW (11.5-14.5) % Plt Count (130-400) K/uL MPV (7.2-11.7) fL Neut % (Auto) (50.0-75.0) % Lymph % (Auto) (20.0-40.0) % [place] % (Auto) (0.0-10.0) % Eos % (Auto) (0.0-4.0) % Baso % (Auto) (0.0-2.0) % Neut # (1.8-7.0) K/uL Lymph # (1.0-4.3) K/uL [place] # (0.0-0.8) K/uL Eos # (0.0-0.7) K/uL Baso # (0.0-0.2) K/uL Neutrophils % (Manual) (50-75) % Band Neutrophils % (0-2) % Lymphocytes % (Manual) (20-40) % Monocytes % (Manual) (0-10) % Eosinophils % (Manual) (0-4) % Platelet Estimate (NORMAL) Hypochromasia (manual) Poikilocytosis (manual Basophilic Stippling Anisocytosis (manual) Tear Drop Cells Puncture Site Rr pCO2 39 (35-45) mm/Hg pO2 68 L (80-100) mm/Hg HCO3 26.6 (21-28) mmol/L ABG pH 7.44 (7.35-7.45) ABG Total CO2 27.7 (22-28) mmol/L ABG O2 Saturation 96.8 (95-98) % ABG Base Excess 2.2 (-2.0-3.0) mmol/L ABG Hemoglobin 8.8 L (11.7-17.4) g/dL ABG Carboxyhemoglobin 2.0 H (0.5-1.5) % POC ABG HHb (Measured) 3.1 (0.0-5.0) % ABG Methemoglobin 1.4 (0.0-3.0) % Nicolas Test Pos A-a O2 Difference 382.0 mm/Hg Respiratory Index 5.6 Hgb O2 Saturation 93.6 L (95.0-98.0) % Vent Mode Prvc Mechanical Rate 24 FiO2 70.0 % Tidal Volume 400 PEEP 5 Sodium (132-148) mmol/L Potassium (3.6-5.2) mmol/L Chloride (98-107) mmol/L Carbon Dioxide (22-30) mmol/L Anion Gap (10-20) BUN (9-20) mg/dL Creatinine (0.8-1.5) MG/DL Est GFR ( Amer) Est GFR (Non-Af Amer) POC Glucose (mg/dL) 155 H (65-110) mg/dL Random Glucose (75-110) mg/dL Calcium (8.6-10.4) mg/dl Phosphorus (2.5-4.5) mg/dL Magnesium (1.6-2.3) mg/dL Total Bilirubin (0.2-1.3) mg/dL AST (17-59) U/L ALT (21-72) U/L Alkaline Phosphatase (38-126) U/L Total Protein (6.3-8.3) g/dL Albumin (3.5-5.0) g/dL Globulin (2.2-3.9) gm/dL Albumin/Globulin Ratio (1.0-2.1) Stool Occult Blood Negative (NEGATIVE) C. difficile Ag & Toxin (NEGATIVE) Laboratory Results - last 24 hr 11/02/16 11/03/16 11/03/16 18:38 00:01 05:33 WBC RBC Hgb Hct MCV MCH MCHC RDW Plt Count MPV Neut % (Auto) Lymph % (Auto) [place] % (Auto) Eos % (Auto) Baso % (Auto) Neut # Lymph # [place] # Eos # Baso # Neutrophils % (Manual) Band Neutrophils % Lymphocytes % (Manual) Monocytes % (Manual) Eosinophils % (Manual) Platelet Estimate Hypochromasia (manual) Poikilocytosis (manual Basophilic Stippling Anisocytosis (manual) Tear Drop Cells Puncture Site Rr pCO2 39 pO2 68 L HCO3 26.6 ABG pH 7.44 ABG Total CO2 27.7 ABG O2 Saturation 96.8 ABG Base Excess 2.2 ABG Hemoglobin 8.8 L ABG Carboxyhemoglobin 2.0 H POC ABG HHb (Measured) 3.1 ABG Methemoglobin 1.4 Nicolas Test Pos A-a O2 Difference 382.0 Respiratory Index 5.6 Hgb O2 Saturation 93.6 L Vent Mode Prvc Mechanical Rate 24 FiO2 70.0 Tidal Volume 400 PEEP 5 Sodium Potassium Chloride Carbon Dioxide Anion Gap BUN Creatinine Est GFR ( Amer) Est GFR (Non-Af Amer) POC Glucose (mg/dL) 155 H Random Glucose Calcium Phosphorus Magnesium Total Bilirubin AST ALT Alkaline Phosphatase Total Protein Albumin Globulin Albumin/Globulin Ratio Stool Occult Blood Negative C. difficile Ag & Toxin 11/03/16 11/03/16 11/03/16 06:16 06:22 06:22 WBC 17.0 H RBC 2.52 L Hgb 8.2 L Hct 24.6 L MCV 97.5 H MCH 32.4 H MCHC 33.2 RDW 15.1 H Plt Count 104 L MPV 11.6 Neut % (Auto) 90.9 H Lymph % (Auto) 3.7 L [place] % (Auto) 2.5 Eos % (Auto) 2.8 Baso % (Auto) 0.1 Neut # 15.5 H Lymph # 0.6 L [place] # 0.4 Eos # 0.5 Baso # 0.0 Neutrophils % (Manual) 91 H Band Neutrophils % 4 H Lymphocytes % (Manual) 2 L Monocytes % (Manual) 2 Eosinophils % (Manual) 1 Platelet Estimate Slightly decreased L Hypochromasia (manual) Slight Poikilocytosis (manual Slight Basophilic Stippling Slight Anisocytosis (manual) Slight Tear Drop Cells Slight Puncture Site pCO2 pO2 HCO3 ABG pH ABG Total CO2 ABG O2 Saturation ABG Base Excess ABG Hemoglobin ABG Carboxyhemoglobin POC ABG HHb (Measured) ABG Methemoglobin Nicolas Test A-a O2 Difference Respiratory Index Hgb O2 Saturation Vent Mode Mechanical Rate FiO2 Tidal Volume PEEP Sodium 141 Potassium 3.5 L Chloride 97 L Carbon Dioxide 28 Anion Gap 20 BUN 77 H Creatinine 4.0 H Est GFR ( Amer) 20 Est GFR (Non-Af Amer) 16 POC Glucose (mg/dL) 200 H Random Glucose 163 H Calcium 7.0 L Phosphorus 5.8 H Magnesium 2.2 Total Bilirubin 1.4 H AST 71 H D ALT 72 Alkaline Phosphatase 116 Total Protein 5.6 L Albumin 2.7 L Globulin 2.9 Albumin/Globulin Ratio 0.9 L Stool Occult Blood C. difficile Ag & Toxin 11/03/16 11/03/16 11/03/16 11:24 14:50 17:34 WBC RBC Hgb Hct MCV MCH MCHC RDW Plt Count MPV Neut % (Auto) Lymph % (Auto) [place] % (Auto) Eos % (Auto) Baso % (Auto) Neut # Lymph # [place] # Eos # Baso # Neutrophils % (Manual) Band Neutrophils % Lymphocytes % (Manual) Monocytes % (Manual) Eosinophils % (Manual) Platelet Estimate Hypochromasia (manual) Poikilocytosis (manual Basophilic Stippling Anisocytosis (manual) Tear Drop Cells Puncture Site pCO2 pO2 HCO3 ABG pH ABG Total CO2 ABG O2 Saturation ABG Base Excess ABG Hemoglobin ABG Carboxyhemoglobin POC ABG HHb (Measured) ABG Methemoglobin Nicolas Test A-a O2 Difference Respiratory Index Hgb O2 Saturation Vent Mode Mechanical Rate FiO2 Tidal Volume PEEP Sodium Potassium Chloride Carbon Dioxide Anion Gap BUN Creatinine Est GFR ( Amer) Est GFR (Non-Af Amer) POC Glucose (mg/dL) 219 H 220 H Random Glucose Calcium Phosphorus Magnesium Total Bilirubin AST ALT Alkaline Phosphatase Total Protein Albumin Globulin Albumin/Globulin Ratio Stool Occult Blood C. difficile Ag & Toxin Negative Assessment/Plan (1) Acute respiratory failure with hypoxemia Current Visit: Yes Status: Acute Comment: Continue ventilatory support Picture consistent with ARDS Low titer volume Continue PEEP and reduce FiO2 70% Continue with pigtail catheter Continue with IV antibiotics no waening as patient is requiring high FiO2 (2) Acute renal failure (ARF) Current Visit: Yes Status: Acute Comment: Continue hemodialysis (3) Pneumonia Current Visit: Yes Status: Acute Comment: Continue antibiotics as per infectious disease Attending/Attestation - Attestation I have personally seen and examined this patient.: Yes I have fully participated in the care of the patient.: Yes I have reviewed all pertinent clinical information: Yes Notes (Text): 11/03/16 18:23 Patient seen and examined in the intensive care unit. Case discussed with all staff in the morning. FiO2 reduced to 60% with PEEP of 5 Sedation vacation Continue antibiotics Continue present treatment Continue hemodialysis
[2016-11-03] MEDS: Micafungin 100 MG in Sodium Chloride 0.9% 100 ML IV SCH (18:06)
[2016-11-04] MEDS: (Novolin R) Insulin Human Regular 100 units/ml vial SC SCH ×5 (00:03→23:54)
[2016-11-04] MEDS: Propofol 10 mg/ml 1,000 MG/100 ML VIAL IV PRN ×2 (01:01→08:06)
[2016-11-04] MEDS: Albuterol 0.083% Inhal Sol (2.5 mg/3 mL) UD INH SCH ×4 (01:19→19:23)
[2016-11-04 06:02] LABS: ABG ALLEN TEST POS; ABG MECHANICAL RATE 24; ARTERIAL BLOOD GAS MODE PRVC; ARTERIAL BLOOD HGB O2 SAT 95.2 % (95.0-98.0); ATERIAL BLOOD GAS PEEP 5; CARBOXYHEMOGLOBIN 1.7 % (0.5-1.5); DRAW SITE RR; METHEMOGLOBIN 1.1 % (0.0-3.0)
[2016-11-04] MEDS: Meropenem 500 MG in Sodium Chloride 0.9% 100 ML IVPB SCH ×2 (06:15→18:07)
[2016-11-04 06:36] LABS: BASO # 0.1 K/uL (0.0-0.2); BASO % 0.5 % (0.0-2.0); EOS # 0.5 K/uL (0.0-0.7); EOS % 3.4 % (0.0-4.0); HEMATOCRIT 24.1 % (35.0-51.0); LYMPH # 0.7 K/uL (1.0-4.3); LYMPH % 5.2 % (20.0-40.0); MEAN CELL VOLUME 97.7 fL (80.0-94.0); MEAN CORPUSCULAR HEMOGLOBIN 32.3 pg (27.0-31.0); MEAN CORPUSCULAR HGB CONC 33.1 g/dL (33.0-37.0); MEAN PLATELET VOLUME 11.4 fL (7.2-11.7); MONO # 0.7 K/uL (0.0-0.8); MONO % 4.7 % (0.0-10.0); PLATELET COUNT 112 K/uL (130-400); RED CELL DISTRIBUTION WIDTH 14.9 % (11.5-14.5); WHITE BLOOD COUNT 14.3 K/uL (4.8-10.8)
[2016-11-04 06:38] LABS: ALB/GLOB RATIO 0.8 (1.0-2.1); BILIRUBIN,TOTAL 1.8 mg/dL (0.2-1.3); CALCIUM 7.1 mg/dl (8.6-10.4); MAGNESIUM 2.3 mg/dL (1.6-2.3); PHOSPHOROUS 6.5 mg/dL (2.5-4.5); POTASSIUM 3.5 mmol/L (3.6-5.2); TOTAL PROTEIN 5.9 g/dL (6.3-8.3)
[2016-11-04] MEDS: Sevelamer Carb 2.4 gm/Packet NG SCH ×3 (08:09→18:25)
[2016-11-04 08:29] LABS: EOSINOPHIL 3 % (0-4); NEUTROPHIL 84 % (50-75); REACTIVE LYMPHOCYTES 1 % (0-0); TOTAL CELLS COUNTED 100
--- NOTE | 2016-11-04 09:02 | RAD ---
HISTORY: follow-up COMPARISON: 11/03/2016 FINDINGS: LUNGS: Right basilar opacity, grossly unchanged. Probable subsegmental atelectasis at left base. PLEURA: No significant pleural effusion identified, no pneumothorax apparent. CARDIOVASCULAR: Normal heart size. ET tube and NG tube unchanged. OSSEOUS STRUCTURES: No significant abnormalities. VISUALIZED UPPER ABDOMEN: Normal. OTHER FINDINGS: None. IMPRESSION: Persistent right medial basilar opacity. Probable subsegmental atelectasis at left base. Lines and tubes unchanged.
[2016-11-04] MEDS: MethylPREDNISolone 40 mg Vial IV SCH (11:00)
[2016-11-04] MEDS: Ammonium Lactate 12% Lotion (225 g) EXT SCH ×2 (12:08→18:08)
[2016-11-04] MEDS: Multiple Vitamins Oral Solution PO SCH (12:14)
--- NOTE | 2016-11-04 13:12 | CP.CCUPN ---
Addendum entered and electronically signed by Zoey Chavez 11/04/16 14:44 : Patient was seen and examined at bedside in the afternoon. Patient is extubated. Patient is AAOx3 and has no complaints. Original Note: <Zoey Chavez. - Last Filed: 11/04/16 13:10> CCU Subjective - Physician Review Subjective (Free Text): Patient was seen and examined at bedside in the morning. Patient is alert. Patient is intubated and unable to respond to review of systems. 11/04/16 13:10 CCU Objective - Vital Signs / Intake & Output Vital Signs (Last 4 hours): Vital Signs Pulse Resp BP Pulse Ox 11/04/16 12:00 91 H 13 104/66 92 L 11/04/16 11:19 86 15 106/63 93 L 11/04/16 10:20 83 14 111/61 97 11/04/16 09:19 86 15 112/58 L 92 L Intake and Output (Last 8hrs): Intake & Output 11/03/16 11/04/16 11/04/16 22:59 06:59 14:59 Intake Total 711.7 587.8 174.5 Output Total 400 480 500 Balance 311.7 107.8 -325.5 Intake: IV 180 170 40 Intake, IV Amount 361.7 157.8 54.5 Right Proximal Port 97.8 97.8 20.6 Internal Jugular Right jugular TLC distal 63.9 60.0 33.9 port Right jugular TLC medial 200 port Tube Feeding 110 260 80 Other 60 Output: Chest Tube Drainage 30 Left Mid-Axillary Chest 30 Urine 370 480 500 Urethral (Walters) 370 480 500 - Physical Exam Head: Positive for: Atraumatic, Normocephalic Extroacular Muscles: Negative for: EOMI Mouth: Positive for: Dry Respiratory/Chest: Positive for: Decreased Breath Sounds, Other (intubated ) Cardiovascular: Positive for: Regular Rate and Rhythm, Normal S1, S2 Abdomen: Positive for: Distention, Normal Bowel Sounds Genitourinary Male: Positive for: Other (walters in place) Upper Extremity: Negative for: Edema Lower Extremity: Negative for: Edema Neurological: Positive for: GCS=15. Negative for: Speech Normal (patient is intubated and sedated ) Skin: Positive for: Warm, Other (Psoriasis located on b/l knees, bilateral upper extremities) Psychiatric: Positive for: Alert (patient is sedated and intubated ) - Medications Active Medications: Active Medications Generic Name Dose Route Start Last Admin Trade Name Freq PRN Reason Stop Dose Admin Acetaminophen 650 mg 10/25/16 11:56 11/02/16 23:46 Tylenol 650mg/20.3ml Solution Ud PO 650 mg Q6 PRN Administration Temperature Albumin Human 12.5 gm 10/26/16 18:45 10/27/16 12:01 Albumin Human 25% (12.5 Gm/50 Ml) IV Not Given Q8H MIRA Albuterol Sulfate 2.5 mg 10/31/16 14:00 11/04/16 13:04 Albuterol 0.083% Inhal Nikky (2.5 Mg/3 Ml) Ud INH 2.5 mg RQ6 MIRA Administration Epoetin Humphrey 10,000 unit 11/02/16 14:45 11/02/16 15:15 Procrit IV 10,000 unit MWF [facility] Administration Ferric Sodium Gluconate Complex 125 mg 11/02/16 10:12 11/04/16 12:25 Ferrlecit IVPB 11/10/16 10:13 Not Given DAILY MIRA Heparin Sodium (Porcine) 3,700 units 11/02/16 15:30 11/02/16 16:00 Heparin IVP 3,700 units MWF [facility] Administration Propofol 1,000 mg in 100 mls @ 2.775 mls/hr 10/31/16 09:51 11/04/16 08:30 Diprivan IV 0 mcg/kg/min .Q24H PRN 0 mls/hr TITRATE PER MD ORDER Titration Protocol 5 MCG/KG/MIN Micafungin Sodium 100 mg/ 100 mls @ 100 mls/hr 11/01/16 17:30 11/03/16 18:06 Sodium Chloride IV 100 mls/hr Q24H [facility] Administration Meropenem 500 mg/ Sodium 100 mls @ 100 mls/hr 11/01/16 17:45 11/04/16 06:15 Chloride IVPB 100 mls/hr Q12H [facility] Administration Dexmedetomidine HCl 200 mcg/ 50 mls @ 4.46 mls/hr 11/03/16 08:09 11/03/16 14: 00 Sodium Chloride IV 0 mcg/kg/hr TITR PRN 0 mls/hr Agitation Titration Protocol 0.2 MCG/KG/HR Norepinephrine Bitartrate 4 mg 254 mls @ 15.24 mls/hr 11/03/16 10:47 16:30 / Dextrose IV 2 mcg/min .[id number] PRN 7.62 mls/hr TITRATE PER MD ORDER Titration Protocol 4 MCG/MIN Vancomycin/Sodium Chloride 1 gm in 200 mls @ 166.7 mls/hr 11/04/16 18:00 Vancocin IVPB 11/04/16 19:11 ONCE ONE Insulin Human Regular 0 unit 11/01/16 12:00 11/04/16 12:13 Novolin R SC Not Given Q6 M[facility]A Protocol Lactic Acid 0 gm 10/22/16 13:00 11/04/16 12:08 Lac-Hydrin 12% Lotion (225 G) EXT 1 applic BID [facility] Administration Methylprednisolone 40 mg 11/03/16 10:00 11/04/16 11:00 Solu-Medrol IV 40 mg DAILY [facility] Administration Midazolam HCl 2 mg 10/22/16 19:22 10/25/16 08:45 Versed Inj IVP 2 mg Q4H PRN Administration Agitation Multivitamins/Vitamin C 5 ml 11/02/16 10:15 11/04/16 12:14 Multi-Delyn Liquid PO Not Given DAILY M[facility]A Nystatin 1 applic 10/26/16 10:00 11/04/16 12:08 Nystop Topical Powder TOP 11/09/16 10:00 1 applic BID M[facility]A Administration Pantoprazole Sodium 40 mg 10/26/16 10:00 11/04/16 12:11 Protonix Inj IVP 40 mg DAILY [facility] Administration Sevelamer Carbonate 2.4 gm 11/01/16 12:00 11/04/16 12:14 Renvela NG Not Given TIDCC [facility] - Patient Studies Lab Studies: Microbiology Studies 11/01/16 17:30 Gram Stain - Final Trachasp Sputum Culture - Final NORMAL ORAL TRICE 11/01/16 17:29 Blood Culture - Preliminary Blood-Venous NO GROWTH AFTER 48 HOURS 11/01/16 17:29 Blood Culture - Preliminary Blood-Venous NO GROWTH AFTER 48 HOURS Lab Studies 11/04/16 11/04/16 11/04/16 Range/Units 11:17 06:23 06:21 WBC 14.3 H (4.8-10.8) K/uL RBC 2.47 L (4.40-5.90) Mil/uL Hgb 8.0 L (12.0-18.0) g/dL Hct 24.1 L (35.0-51.0) % MCV 97.7 H (80.0-94.0) fL MCH 32.3 H (27.0-31.0) pg MCHC 33.1 (33.0-37.0) g/dL RDW 14.9 H (11.5-14.5) % Plt Count 112 L (130-400) K/uL MPV 11.4 (7.2-11.7) fL Neut % (Auto) 86.2 H (50.0-75.0) % Lymph % (Auto) 5.2 L (20.0-40.0) % [place] % (Auto) 4.7 (0.0-10.0) % Eos % (Auto) 3.4 (0.0-4.0) % Baso % (Auto) 0.5 (0.0-2.0) % Neut # 12.3 H (1.8-7.0) K/uL Lymph # 0.7 L (1.0-4.3) K/uL [place] # 0.7 (0.0-0.8) K/uL Eos # 0.5 (0.0-0.7) K/uL Baso # 0.1 (0.0-0.2) K/uL Neutrophils % (Manual) 84 H (50-75) % Lymphocytes % (Manual) 4 L (20-40) % Reactive Lymphs % 1 H (0-0) % Monocytes % (Manual) 8 (0-10) % Eosinophils % (Manual) 3 (0-4) % Platelet Estimate Slightly decreased L (NORMAL) Hypochromasia (manual) Moderate Poikilocytosis (manual Slight Anisocytosis (manual) Slight Macrocytosis (manual) Slight Target Cells Slight Puncture Site pCO2 (35-45) mm/Hg pO2 (80-100) mm/Hg HCO3 (21-28) mmol/L ABG pH (7.35-7.45) ABG Total CO2 (22-28) mmol/L ABG O2 Saturation (95-98) % ABG Base Excess (-2.0-3.0) mmol/L ABG Hemoglobin (11.7-17.4) g/dL ABG Carboxyhemoglobin (0.5-1.5) % POC ABG HHb (Measured) (0.0-5.0) % ABG Methemoglobin (0.0-3.0) % Nicolas Test A-a O2 Difference mm/Hg Respiratory Index Hgb O2 Saturation (95.0-98.0) % Vent Mode Mechanical Rate FiO2 % Tidal Volume PEEP Sodium 145 (132-148) mmol/L Potassium 3.5 L (3.6-5.2) mmol/L Chloride 103 (98-107) mmol/L Carbon Dioxide 25 (22-30) mmol/L Anion Gap 21 H (10-20) BUN 98 H (9-20) mg/dL Creatinine 4.5 H (0.8-1.5) MG/DL Est GFR ( Amer) 17 Est GFR (Non-Af Amer) 14 POC Glucose (mg/dL) 157 H (65-110) mg/dL Random Glucose 127 H (75-110) mg/dL Calcium 7.1 L (8.6-10.4) mg/dl Phosphorus 6.5 H (2.5-4.5) mg/dL Magnesium 2.3 (1.6-2.3) mg/dL Total Bilirubin 1.8 H (0.2-1.3) mg/dL AST 42 (17-59) U/L ALT 60 (21-72) U/L Alkaline Phosphatase 100 (38-126) U/L Total Protein 5.9 L (6.3-8.3) g/dL Albumin 2.7 L (3.5-5.0) g/dL Globulin 3.2 (2.2-3.9) gm/dL Albumin/Globulin Ratio 0.8 L (1.0-2.1) C. difficile Ag & Toxin (NEGATIVE) 11/04/16 11/04/16 11/03/16 Range/Units 06:04 05:28 23:53 WBC (4.8-10.8) K/uL RBC (4.40-5.90) Mil/uL Hgb (12.0-18.0) g/dL Hct (35.0-51.0) % MCV (80.0-94.0) fL MCH (27.0-31.0) pg MCHC (33.0-37.0) g/dL RDW (11.5-14.5) % Plt Count (130-400) K/uL MPV (7.2-11.7) fL Neut % (Auto) (50.0-75.0) % Lymph % (Auto) (20.0-40.0) % [place] % (Auto) (0.0-10.0) % Eos % (Auto) (0.0-4.0) % Baso % (Auto) (0.0-2.0) % Neut # (1.8-7.0) K/uL Lymph # (1.0-4.3) K/uL [place] # (0.0-0.8) K/uL Eos # (0.0-0.7) K/uL Baso # (0.0-0.2) K/uL Neutrophils % (Manual) (50-75) % Lymphocytes % (Manual) (20-40) % Reactive Lymphs % (0-0) % Monocytes % (Manual) (0-10) % Eosinophils % (Manual) (0-4) % Platelet Estimate (NORMAL) Hypochromasia (manual) Poikilocytosis (manual Anisocytosis (manual) Macrocytosis (manual) Target Cells Puncture Site Rr pCO2 33 L (35-45) mm/Hg pO2 71 L (80-100) mm/Hg HCO3 23.3 (21-28) mmol/L ABG pH 7.43 (7.35-7.45) ABG Total CO2 22.9 (22-28) mmol/L ABG O2 Saturation 97.9 (95-98) % ABG Base Excess -2.1 L (-2.0-3.0) mmol/L ABG Hemoglobin 7.8 L (11.7-17.4) g/dL ABG Carboxyhemoglobin 1.7 H (0.5-1.5) % POC ABG HHb (Measured) 2.0 (0.0-5.0) % ABG Methemoglobin 1.1 (0.0-3.0) % Nicolas Test Pos A-a O2 Difference 316.0 mm/Hg Respiratory Index 4.5 Hgb O2 Saturation 95.2 (95.0-98.0) % Vent Mode Prvc Mechanical Rate 24 FiO2 60.0 % Tidal Volume 400 PEEP 5 Sodium (132-148) mmol/L Potassium (3.6-5.2) mmol/L Chloride (98-107) mmol/L Carbon Dioxide (22-30) mmol/L Anion Gap (10-20) BUN (9-20) mg/dL Creatinine (0.8-1.5) MG/DL Est GFR ( Amer) Est GFR (Non-Af Amer) POC Glucose (mg/dL) 169 H 113 H (65-110) mg/dL Random Glucose (75-110) mg/dL Calcium (8.6-10.4) mg/dl Phosphorus (2.5-4.5) mg/dL Magnesium (1.6-2.3) mg/dL Total Bilirubin (0.2-1.3) mg/dL AST (17-59) U/L ALT (21-72) U/L Alkaline Phosphatase (38-126) U/L Total Protein (6.3-8.3) g/dL Albumin (3.5-5.0) g/dL Globulin (2.2-3.9) gm/dL Albumin/Globulin Ratio (1.0-2.1) C. difficile Ag & Toxin (NEGATIVE) 11/03/16 11/03/16 Range/Units 17:34 14:50 WBC (4.8-10.8) K/uL RBC (4.40-5.90) Mil/uL Hgb (12.0-18.0) g/dL Hct (35.0-51.0) % MCV (80.0-94.0) fL MCH (27.0-31.0) pg MCHC (33.0-37.0) g/dL RDW (11.5-14.5) % Plt Count (130-400) K/uL MPV (7.2-11.7) fL Neut % (Auto) (50.0-75.0) % Lymph % (Auto) (20.0-40.0) % [place] % (Auto) (0.0-10.0) % Eos % (Auto) (0.0-4.0) % Baso % (Auto) (0.0-2.0) % Neut # (1.8-7.0) K/uL Lymph # (1.0-4.3) K/uL [place] # (0.0-0.8) K/uL Eos # (0.0-0.7) K/uL Baso # (0.0-0.2) K/uL Neutrophils % (Manual) (50-75) % Lymphocytes % (Manual) (20-40) % Reactive Lymphs % (0-0) % Monocytes % (Manual) (0-10) % Eosinophils % (Manual) (0-4) % Platelet Estimate (NORMAL) Hypochromasia (manual) Poikilocytosis (manual Anisocytosis (manual) Macrocytosis (manual) Target Cells Puncture Site pCO2 (35-45) mm/Hg pO2 (80-100) mm/Hg HCO3 (21-28) mmol/L ABG pH (7.35-7.45) ABG Total CO2 (22-28) mmol/L ABG O2 Saturation (95-98) % ABG Base Excess (-2.0-3.0) mmol/L ABG Hemoglobin (11.7-17.4) g/dL ABG Carboxyhemoglobin (0.5-1.5) % POC ABG HHb (Measured) (0.0-5.0) % ABG Methemoglobin (0.0-3.0) % Nicolas Test A-a O2 Difference mm/Hg Respiratory Index Hgb O2 Saturation (95.0-98.0) % Vent Mode Mechanical Rate FiO2 % Tidal Volume PEEP Sodium (132-148) mmol/L Potassium (3.6-5.2) mmol/L Chloride (98-107) mmol/L Carbon Dioxide (22-30) mmol/L Anion Gap (10-20) BUN (9-20) mg/dL Creatinine (0.8-1.5) MG/DL Est GFR ( Amer) Est GFR (Non-Af Amer) POC Glucose (mg/dL) 220 H (65-110) mg/dL Random Glucose (75-110) mg/dL Calcium (8.6-10.4) mg/dl Phosphorus (2.5-4.5) mg/dL Magnesium (1.6-2.3) mg/dL Total Bilirubin (0.2-1.3) mg/dL AST (17-59) U/L ALT (21-72) U/L Alkaline Phosphatase (38-126) U/L Total Protein (6.3-8.3) g/dL Albumin (3.5-5.0) g/dL Globulin (2.2-3.9) gm/dL Albumin/Globulin Ratio (1.0-2.1) C. difficile Ag & Toxin Negative (NEGATIVE) Laboratory Results - last 24 hr 11/03/16 11/03/16 11/03/16 14:50 17:34 23:53 WBC RBC Hgb Hct MCV MCH MCHC RDW Plt Count MPV Neut % (Auto) Lymph % (Auto) [place] % (Auto) Eos % (Auto) Baso % (Auto) Neut # Lymph # [place] # Eos # Baso # Neutrophils % (Manual) Lymphocytes % (Manual) Reactive Lymphs % Monocytes % (Manual) Eosinophils % (Manual) Platelet Estimate Hypochromasia (manual) Poikilocytosis (manual Anisocytosis (manual) Macrocytosis (manual) Target Cells Puncture Site pCO2 pO2 HCO3 ABG pH ABG Total CO2 ABG O2 Saturation ABG Base Excess ABG Hemoglobin ABG Carboxyhemoglobin POC ABG HHb (Measured) ABG Methemoglobin Nicolas Test A-a O2 Difference Respiratory Index Hgb O2 Saturation Vent Mode Mechanical Rate FiO2 Tidal Volume PEEP Sodium Potassium Chloride Carbon Dioxide Anion Gap BUN Creatinine Est GFR ( Amer) Est GFR (Non-Af Amer) POC Glucose (mg/dL) 220 H 113 H Random Glucose Calcium Phosphorus Magnesium Total Bilirubin AST ALT Alkaline Phosphatase Total Protein Albumin Globulin Albumin/Globulin Ratio C. difficile Ag & Toxin Negative 11/04/16 11/04/16 11/04/16 05:28 06:04 06:21 WBC RBC Hgb Hct MCV MCH MCHC RDW Plt Count MPV Neut % (Auto) Lymph % (Auto) [place] % (Auto) Eos % (Auto) Baso % (Auto) Neut # Lymph # [place] # Eos # Baso # Neutrophils % (Manual) Lymphocytes % (Manual) Reactive Lymphs % Monocytes % (Manual) Eosinophils % (Manual) Platelet Estimate Hypochromasia (manual) Poikilocytosis (manual Anisocytosis (manual) Macrocytosis (manual) Target Cells Puncture Site Rr pCO2 33 L pO2 71 L HCO3 23.3 ABG pH 7.43 ABG Total CO2 22.9 ABG O2 Saturation 97.9 ABG Base Excess -2.1 L ABG Hemoglobin 7.8 L ABG Carboxyhemoglobin 1.7 H POC ABG HHb (Measured) 2.0 ABG Methemoglobin 1.1 Nicolas Test Pos A-a O2 Difference 316.0 Respiratory Index 4.5 Hgb O2 Saturation 95.2 Vent Mode Prvc Mechanical Rate 24 FiO2 60.0 Tidal Volume 400 PEEP 5 Sodium 145 Potassium 3.5 L Chloride 103 Carbon Dioxide 25 Anion Gap 21 H BUN 98 H Creatinine 4.5 H Est GFR ( Amer) 17 Est GFR (Non-Af Amer) 14 POC Glucose (mg/dL) 169 H Random Glucose 127 H Calcium 7.1 L Phosphorus 6.5 H Magnesium 2.3 Total Bilirubin 1.8 H AST 42 ALT 60 Alkaline Phosphatase 100 Total Protein 5.9 L Albumin 2.7 L Globulin 3.2 Albumin/Globulin Ratio 0.8 L C. difficile Ag & Toxin 11/04/16 11/04/16 06:23 11:17 WBC 14.3 H RBC 2.47 L Hgb 8.0 L Hct 24.1 L MCV 97.7 H MCH 32.3 H MCHC 33.1 RDW 14.9 H Plt Count 112 L MPV 11.4 Neut % (Auto) 86.2 H Lymph % (Auto) 5.2 L [place] % (Auto) 4.7 Eos % (Auto) 3.4 Baso % (Auto) 0.5 Neut # 12.3 H Lymph # 0.7 L [place] # 0.7 Eos # 0.5 Baso # 0.1 Neutrophils % (Manual) 84 H Lymphocytes % (Manual) 4 L Reactive Lymphs % 1 H Monocytes % (Manual) 8 Eosinophils % (Manual) 3 Platelet Estimate Slightly decreased L Hypochromasia (manual) Moderate Poikilocytosis (manual Slight Anisocytosis (manual) Slight Macrocytosis (manual) Slight Target Cells Slight Puncture Site pCO2 pO2 HCO3 ABG pH ABG Total CO2 ABG O2 Saturation ABG Base Excess ABG Hemoglobin ABG Carboxyhemoglobin POC ABG HHb (Measured) ABG Methemoglobin Nicolas Test A-a O2 Difference Respiratory Index Hgb O2 Saturation Vent Mode Mechanical Rate FiO2 Tidal Volume PEEP Sodium Potassium Chloride Carbon Dioxide Anion Gap BUN Creatinine Est GFR ( Amer) Est GFR (Non-Af Amer) POC Glucose (mg/dL) 157 H Random Glucose Calcium Phosphorus Magnesium Total Bilirubin AST ALT Alkaline Phosphatase Total Protein Albumin Globulin Albumin/Globulin Ratio C. difficile Ag & Toxin Fingerstick Blood Sugar Results: 169 Review of Systems - Review of Systems Systems not reviewed;Unavailable: Intubated Critical Care Progress Note - Vent Settings TIDAL VOLUME:: 400 FIO2:: 60 PEEP:: 5 Assessment/Plan - Assessment and Plan (Free Text) Assessment: 45 year old male with medical history of alcoholism, presents to the ED with complaint of worsening cough, abdominal pain for seven days. Neuro: - Neurology Consult: Dr. Pineda --> help appreciated - Chronic alcohol abuse - Sedated - Propofol 1,000mg - Precedex 200mcg - 2mg Midazolam - After permacath (10/30) changed to Midazolam PRN Pulm: - Intubated - Hypoxic on vent secondary to ARDS - chest x-ray (10/29): Small left apical pneumothorax - pigtail catheter was inserted in the left lung by pulm Dr. Gomez --> help appreciated - keep pigtail catheter until extubation - Severe ARDS - Vent Settings: FiO2 100; Peep 10; Tidal Volume: 400 - Vent settings changed on 11/02: FiO2 60, Peep 5, Tidal Volume 400 - Trachasp/sputum cx: negative; normal oral trice - Plan to extubate today, dc suction - CXR 11/04: persistent right medial basilar opacity; probable subsegmental atelectasis at left base. CV: - Norepinephrine - PICC line placement - Hypotensive, systolic in the 80s (11/03): norephinephrine 4mg in dextrose - BP improved, 104/66 on 11/04 Heme: - Thrombocytopenia - Plateletphresis: 1 unit (10/23) - Plateletphresis: 1 unit (10/28) - Plateletphresis: 1 unit (10/29) - Plateletphresis: 1 unit (10/30) - Platelets: 62 - Platelets on 11/02-11/03: 104 - Platelets on 11/04: 112 - Monitor - HIT AB: negative Renal: - Walters placed 10/21 - Monitor - Dialysis started 10/23 - Permacath placement 10/30 - Vascular Surgery Consult: Dr. De La Vega --> help appreciated - Nephrology Consult: Dr. Merida --> help appreciated - Dialysis TTS Endo: - Monitor - No acute issues GI: - Tube Feeding - Diarrhea, as per the nurse - Flexi-seal - Stool occult: negative - C. Diff: negative ID: - Sepsis due to Pneumonia - Blood culture: Strep Pneumoniae - Zosyn stopped 10/22 - Ceftriaxone started 10/22 - Vanco: 1gm dose given 10/30; f/u 500mg after dialysis - Vanco random 11/02: 10.70 - ID Consult: Dr. Bowers --> help appreciated - repeat blood cultures have been negative - preliminary - Trachasp/sputum cx: negative; normal oral trice - Bands on 11/03: 4 (at admission, 48) DVT proph - SCDs; heparin held due to permacath placement - restart heparin q12 after GI proph - Pepcid 20mg PO Daily PT/OT <Osmani Gomez S - Last Filed: 11/04/16 17:36> CCU Objective - Vital Signs / Intake & Output Vital Signs (Last 4 hours): Vital Signs Temp Pulse Pulse Resp BP BP BP 11/04/16 17:25 112/66 11/04/16 17:15 83 16 111/73 11/04/16 17:00 97 H 12 139/87 11/04/16 16:55 16 147/91 H 147/91 H 11/04/16 16:35 74 12 106/68 11/04/16 16:25 80 20 109/73 11/04/16 16:00 98.6 F 75 14 96/59 L 11/04/16 15:55 93 H 20 106/71 106/71 11/04/16 15:40 93 H 20 96/59 L 96/59 L 11/04/16 15:27 86 17 115/74 11/04/16 15:25 111/71 111/71 11/04/16 15:10 82 20 129/78 11/04/16 15:00 84 14 129/78 11/04/16 14:55 17 128/84 11/04/16 14:45 97.5 F L 69 15 114/72 11/04/16 14:00 86 16 93/46 L Pulse Ox 11/04/16 17:25 11/04/16 17:15 93 L 11/04/16 17:00 89 L 11/04/16 16:55 93 L 11/04/16 16:35 94 L 11/04/16 16:25 95 11/04/16 16:00 93 L 11/04/16 15:55 91 L 11/04/16 15:40 93 L 11/04/16 15:27 92 L 11/04/16 15:25 91 L 11/04/16 15:10 94 L 11/04/16 15:00 91 L 11/04/16 14:55 91 L 11/04/16 14:45 11/04/16 14:00 91 L Intake and Output (Last 8hrs): Intake & Output 11/04/16 11/04/16 11/04/16 06:59 14:59 22:59 Intake Total 587.8 379.8 108.3 Output Total 480 800 250 Balance 107.8 -420.2 -141.7 Intake: IV 170 187 17 Intake, IV Amount 157.8 112.8 91.3 Right Proximal Port 97.8 59.9 57.1 Internal Jugular Right jugular TLC distal 60.0 52.9 34.2 port Tube Feeding 260 80 0 Output: Urine 480 800 250 Urethral (Walters) 480 800 250 - Medications Active Medications: Active Medications Generic Name Dose Route Start Last Admin Trade Name Freq PRN Reason Stop Dose Admin Acetaminophen 650 mg 10/25/16 11:56 11/02/16 23:46 Tylenol 650mg/20.3ml Solution Ud PO 650 mg Q6 PRN Administration Temperature Albumin Human 12.5 gm 10/26/16 18:45 10/27/16 12:01 Albumin Human 25% (12.5 Gm/50 Ml) IV Not Given Q8H [facility] Albuterol Sulfate 2.5 mg 10/31/16 14:00 11/04/16 13:04 Albuterol 0.083% Inhal Nikky (2.5 Mg/3 Ml) Ud INH 2.5 mg RQ6 [facility] Administration Epoetin Humphrey 10,000 unit 11/02/16 14:45 11/04/16 16:39 Procrit IV 10,000 unit MWF [facility] Administration Ferric Sodium Gluconate Complex 125 mg 11/02/16 10:12 11/04/16 17:17 Ferrlecit IVPB 11/10/16 10:13 125 mg DAILY [facility] Administration Heparin Sodium (Porcine) 3,700 units 11/02/16 15:30 11/04/16 16:38 Heparin IVP 3,700 units MWF [facility] Administration Propofol 1,000 mg in 100 mls @ 2.775 mls/hr 10/31/16 09:51 11/04/16 08:30 Diprivan IV 0 mcg/kg/min .Q24H PRN 0 mls/hr TITRATE PER MD ORDER Titration Protocol 5 MCG/KG/MIN Micafungin Sodium 100 mg/ 100 mls @ 100 mls/hr 11/01/16 17:30 11/03/16 18:06 Sodium Chloride IV 100 mls/hr Q24H [facility] Administration Meropenem 500 mg/ Sodium 100 mls @ 100 mls/hr 11/01/16 17:45 11/04/16 06:15 Chloride IVPB 100 mls/hr Q12H [facility] Administration Dexmedetomidine HCl 200 mcg/ 50 mls @ 4.46 mls/hr 11/03/16 08:09 11/04/16 14: 17 Sodium Chloride IV 0.8 mcg/kg/hr TITR PRN 17.84 mls/hr Agitation Administration Protocol 0.2 MCG/KG/HR Norepinephrine Bitartrate 4 mg 254 mls @ 15.24 mls/hr 11/03/16 10:47 15:27 / Dextrose IV 3 mcg/min .[id number] PRN 11.43 mls/hr TITRATE PER MD ORDER Administration Protocol 4 MCG/MIN Vancomycin/Sodium Chloride 1 gm in 200 mls @ 166.7 mls/hr 11/04/16 18:00 Vancocin IVPB 11/04/16 19:11 ONCE ONE Insulin Human Regular 0 unit 11/01/16 12:00 11/04/16 12:13 Novolin R SC Not Given Q6 [facility] Protocol Lactic Acid 0 gm 10/22/16 13:00 11/04/16 12:08 Lac-Hydrin 12% Lotion (225 G) EXT 1 applic BID [facility] Administration Methylprednisolone 40 mg 11/03/16 10:00 11/04/16 11:00 Solu-Medrol IV 40 mg DAILY [facility] Administration Midazolam HCl 2 mg 10/22/16 19:22 10/25/16 08:45 Versed Inj IVP 2 mg Q4H PRN Administration Agitation Multivitamins/Vitamin C 5 ml 11/02/16 10:15 11/04/16 12:14 Multi-Delyn Liquid PO Not Given DAILY [facility] Nystatin 1 applic 10/26/16 10:00 11/04/16 12:08 Nystop Topical Powder TOP 11/09/16 10:00 1 applic BID [facility] Administration Pantoprazole Sodium 40 mg 10/26/16 10:00 11/04/16 12:11 Protonix Inj IVP 40 mg DAILY [facility] Administration Sevelamer Carbonate 2.4 gm 11/01/16 12:00 11/04/16 12:14 Renvela NG Not Given TIDCC MIRA - Patient Studies Lab Studies: Microbiology Studies 11/01/16 17:30 Gram Stain - Final Trachasp Sputum Culture - Final NORMAL ORAL TRICE 11/01/16 17:29 Blood Culture - Preliminary Blood-Venous NO GROWTH AFTER 48 HOURS 11/01/16 17:29 Blood Culture - Preliminary Blood-Venous NO GROWTH AFTER 48 HOURS Lab Studies 11/04/16 11/04/16 11/04/16 Range/Units 11:17 06:23 06:21 WBC 14.3 H (4.8-10.8) K/uL RBC 2.47 L (4.40-5.90) Mil/uL Hgb 8.0 L (12.0-18.0) g/dL Hct 24.1 L (35.0-51.0) % MCV 97.7 H (80.0-94.0) fL MCH 32.3 H (27.0-31.0) pg MCHC 33.1 (33.0-37.0) g/dL RDW 14.9 H (11.5-14.5) % Plt Count 112 L (130-400) K/uL MPV 11.4 (7.2-11.7) fL Neut % (Auto) 86.2 H (50.0-75.0) % Lymph % (Auto) 5.2 L (20.0-40.0) % [place] % (Auto) 4.7 (0.0-10.0) % Eos % (Auto) 3.4 (0.0-4.0) % Baso % (Auto) 0.5 (0.0-2.0) % Neut # 12.3 H (1.8-7.0) K/uL Lymph # 0.7 L (1.0-4.3) K/uL [place] # 0.7 (0.0-0.8) K/uL Eos # 0.5 (0.0-0.7) K/uL Baso # 0.1 (0.0-0.2) K/uL Neutrophils % (Manual) 84 H (50-75) % Lymphocytes % (Manual) 4 L (20-40) % Reactive Lymphs % 1 H (0-0) % Monocytes % (Manual) 8 (0-10) % Eosinophils % (Manual) 3 (0-4) % Platelet Estimate Slightly decreased L (NORMAL) Hypochromasia (manual) Moderate Poikilocytosis (manual Slight Anisocytosis (manual) Slight Macrocytosis (manual) Slight Target Cells Slight Puncture Site pCO2 (35-45) mm/Hg pO2 (80-100) mm/Hg HCO3 (21-28) mmol/L ABG pH (7.35-7.45) ABG Total CO2 (22-28) mmol/L ABG O2 Saturation (95-98) % ABG Base Excess (-2.0-3.0) mmol/L ABG Hemoglobin (11.7-17.4) g/dL ABG Carboxyhemoglobin (0.5-1.5) % POC ABG HHb (Measured) (0.0-5.0) % ABG Methemoglobin (0.0-3.0) % Nicolas Test A-a O2 Difference mm/Hg Respiratory Index Hgb O2 Saturation (95.0-98.0) % Vent Mode Mechanical Rate FiO2 % Tidal Volume PEEP Sodium 145 (132-148) mmol/L Potassium 3.5 L (3.6-5.2) mmol/L Chloride 103 (98-107) mmol/L Carbon Dioxide 25 (22-30) mmol/L Anion Gap 21 H (10-20) BUN 98 H (9-20) mg/dL Creatinine 4.5 H (0.8-1.5) MG/DL Est GFR ( Amer) 17 Est GFR (Non-Af Amer) 14 POC Glucose (mg/dL) 157 H (65-110) mg/dL Random Glucose 127 H (75-110) mg/dL Calcium 7.1 L (8.6-10.4) mg/dl Phosphorus 6.5 H (2.5-4.5) mg/dL Magnesium 2.3 (1.6-2.3) mg/dL Total Bilirubin 1.8 H (0.2-1.3) mg/dL AST 42 (17-59) U/L ALT 60 (21-72) U/L Alkaline Phosphatase 100 (38-126) U/L Total Protein 5.9 L (6.3-8.3) g/dL Albumin 2.7 L (3.5-5.0) g/dL Globulin 3.2 (2.2-3.9) gm/dL Albumin/Globulin Ratio 0.8 L (1.0-2.1) 11/04/16 11/04/16 11/03/16 Range/Units 06:04 05:28 23:53 WBC (4.8-10.8) K/uL RBC (4.40-5.90) Mil/uL Hgb (12.0-18.0) g/dL Hct (35.0-51.0) % MCV (80.0-94.0) fL MCH (27.0-31.0) pg MCHC (33.0-37.0) g/dL RDW (11.5-14.5) % Plt Count (130-400) K/uL MPV (7.2-11.7) fL Neut % (Auto) (50.0-75.0) % Lymph % (Auto) (20.0-40.0) % [place] % (Auto) (0.0-10.0) % Eos % (Auto) (0.0-4.0) % Baso % (Auto) (0.0-2.0) % Neut # (1.8-7.0) K/uL Lymph # (1.0-4.3) K/uL [place] # (0.0-0.8) K/uL Eos # (0.0-0.7) K/uL Baso # (0.0-0.2) K/uL Neutrophils % (Manual) (50-75) % Lymphocytes % (Manual) (20-40) % Reactive Lymphs % (0-0) % Monocytes % (Manual) (0-10) % Eosinophils % (Manual) (0-4) % Platelet Estimate (NORMAL) Hypochromasia (manual) Poikilocytosis (manual Anisocytosis (manual) Macrocytosis (manual) Target Cells Puncture Site Rr pCO2 33 L (35-45) mm/Hg pO2 71 L (80-100) mm/Hg HCO3 23.3 (21-28) mmol/L ABG pH 7.43 (7.35-7.45) ABG Total CO2 22.9 (22-28) mmol/L ABG O2 Saturation 97.9 (95-98) % ABG Base Excess -2.1 L (-2.0-3.0) mmol/L ABG Hemoglobin 7.8 L (11.7-17.4) g/dL ABG Carboxyhemoglobin 1.7 H (0.5-1.5) % POC ABG HHb (Measured) 2.0 (0.0-5.0) % ABG Methemoglobin 1.1 (0.0-3.0) % Nicolas Test Pos A-a O2 Difference 316.0 mm/Hg Respiratory Index 4.5 Hgb O2 Saturation 95.2 (95.0-98.0) % Vent Mode Prvc Mechanical Rate 24 FiO2 60.0 % Tidal Volume 400 PEEP 5 Sodium (132-148) mmol/L Potassium (3.6-5.2) mmol/L Chloride (98-107) mmol/L Carbon Dioxide (22-30) mmol/L Anion Gap (10-20) BUN (9-20) mg/dL Creatinine (0.8-1.5) MG/DL Est GFR ( Amer) Est GFR (Non-Af Amer) POC Glucose (mg/dL) 169 H 113 H (65-110) mg/dL Random Glucose (75-110) mg/dL Calcium (8.6-10.4) mg/dl Phosphorus (2.5-4.5) mg/dL Magnesium (1.6-2.3) mg/dL Total Bilirubin (0.2-1.3) mg/dL AST (17-59) U/L ALT (21-72) U/L Alkaline Phosphatase (38-126) U/L Total Protein (6.3-8.3) g/dL Albumin (3.5-5.0) g/dL Globulin (2.2-3.9) gm/dL Albumin/Globulin Ratio (1.0-2.1) 11/03/16 Range/Units 17:34 WBC (4.8-10.8) K/uL RBC (4.40-5.90) Mil/uL Hgb (12.0-18.0) g/dL Hct (35.0-51.0) % MCV (80.0-94.0) fL MCH (27.0-31.0) pg MCHC (33.0-37.0) g/dL RDW (11.5-14.5) % Plt Count (130-400) K/uL MPV (7.2-11.7) fL Neut % (Auto) (50.0-75.0) % Lymph % (Auto) (20.0-40.0) % [place] % (Auto) (0.0-10.0) % Eos % (Auto) (0.0-4.0) % Baso % (Auto) (0.0-2.0) % Neut # (1.8-7.0) K/uL Lymph # (1.0-4.3) K/uL [place] # (0.0-0.8) K/uL Eos # (0.0-0.7) K/uL Baso # (0.0-0.2) K/uL Neutrophils % (Manual) (50-75) % Lymphocytes % (Manual) (20-40) % Reactive Lymphs % (0-0) % Monocytes % (Manual) (0-10) % Eosinophils % (Manual) (0-4) % Platelet Estimate (NORMAL) Hypochromasia (manual) Poikilocytosis (manual Anisocytosis (manual) Macrocytosis (manual) Target Cells Puncture Site pCO2 (35-45) mm/Hg pO2 (80-100) mm/Hg HCO3 (21-28) mmol/L ABG pH (7.35-7.45) ABG Total CO2 (22-28) mmol/L ABG O2 Saturation (95-98) % ABG Base Excess (-2.0-3.0) mmol/L ABG Hemoglobin (11.7-17.4) g/dL ABG Carboxyhemoglobin (0.5-1.5) % POC ABG HHb (Measured) (0.0-5.0) % ABG Methemoglobin (0.0-3.0) % Nicolas Test A-a O2 Difference mm/Hg Respiratory Index Hgb O2 Saturation (95.0-98.0) % Vent Mode Mechanical Rate FiO2 % Tidal Volume PEEP Sodium (132-148) mmol/L Potassium (3.6-5.2) mmol/L Chloride (98-107) mmol/L Carbon Dioxide (22-30) mmol/L Anion Gap (10-20) BUN (9-20) mg/dL Creatinine (0.8-1.5) MG/DL Est GFR ( Amer) Est GFR (Non-Af Amer) POC Glucose (mg/dL) 220 H (65-110) mg/dL Random Glucose (75-110) mg/dL Calcium (8.6-10.4) mg/dl Phosphorus (2.5-4.5) mg/dL Magnesium (1.6-2.3) mg/dL Total Bilirubin (0.2-1.3) mg/dL AST (17-59) U/L ALT (21-72) U/L Alkaline Phosphatase (38-126) U/L Total Protein (6.3-8.3) g/dL Albumin (3.5-5.0) g/dL Globulin (2.2-3.9) gm/dL Albumin/Globulin Ratio (1.0-2.1) Laboratory Results - last 24 hr 11/03/16 11/03/16 11/04/16 17:34 23:53 05:28 WBC RBC Hgb Hct MCV MCH MCHC RDW Plt Count MPV Neut % (Auto) Lymph % (Auto) [place] % (Auto) Eos % (Auto) Baso % (Auto) Neut # Lymph # [place] # Eos # Baso # Neutrophils % (Manual) Lymphocytes % (Manual) Reactive Lymphs % Monocytes % (Manual) Eosinophils % (Manual) Platelet Estimate Hypochromasia (manual) Poikilocytosis (manual Anisocytosis (manual) Macrocytosis (manual) Target Cells Puncture Site Rr pCO2 33 L pO2 71 L HCO3 23.3 ABG pH 7.43 ABG Total CO2 22.9 ABG O2 Saturation 97.9 ABG Base Excess -2.1 L ABG Hemoglobin 7.8 L ABG Carboxyhemoglobin 1.7 H POC ABG HHb (Measured) 2.0 ABG Methemoglobin 1.1 Nicolas Test Pos A-a O2 Difference 316.0 Respiratory Index 4.5 Hgb O2 Saturation 95.2 Vent Mode Prvc Mechanical Rate 24 FiO2 60.0 Tidal Volume 400 PEEP 5 Sodium Potassium Chloride Carbon Dioxide Anion Gap BUN Creatinine Est GFR ( Amer) Est GFR (Non-Af Amer) POC Glucose (mg/dL) 220 H 113 H Random Glucose Calcium Phosphorus Magnesium Total Bilirubin AST ALT Alkaline Phosphatase Total Protein Albumin Globulin Albumin/Globulin Ratio 11/04/16 11/04/16 11/04/16 06:04 06:21 06:23 WBC 14.3 H RBC 2.47 L Hgb 8.0 L Hct 24.1 L MCV 97.7 H MCH 32.3 H MCHC 33.1 RDW 14.9 H Plt Count 112 L MPV 11.4 Neut % (Auto) 86.2 H Lymph % (Auto) 5.2 L [place] % (Auto) 4.7 Eos % (Auto) 3.4 Baso % (Auto) 0.5 Neut # 12.3 H Lymph # 0.7 L [place] # 0.7 Eos # 0.5 Baso # 0.1 Neutrophils % (Manual) 84 H Lymphocytes % (Manual) 4 L Reactive Lymphs % 1 H Monocytes % (Manual) 8 Eosinophils % (Manual) 3 Platelet Estimate Slightly decreased L Hypochromasia (manual) Moderate Poikilocytosis (manual Slight Anisocytosis (manual) Slight Macrocytosis (manual) Slight Target Cells Slight Puncture Site pCO2 pO2 HCO3 ABG pH ABG Total CO2 ABG O2 Saturation ABG Base Excess ABG Hemoglobin ABG Carboxyhemoglobin POC ABG HHb (Measured) ABG Methemoglobin Nicolas Test A-a O2 Difference Respiratory Index Hgb O2 Saturation Vent Mode Mechanical Rate FiO2 Tidal Volume PEEP Sodium 145 Potassium 3.5 L Chloride 103 Carbon Dioxide 25 Anion Gap 21 H BUN 98 H Creatinine 4.5 H Est GFR ( Amer) 17 Est GFR (Non-Af Amer) 14 POC Glucose (mg/dL) 169 H Random Glucose 127 H Calcium 7.1 L Phosphorus 6.5 H Magnesium 2.3 Total Bilirubin 1.8 H AST 42 ALT 60 Alkaline Phosphatase 100 Total Protein 5.9 L Albumin 2.7 L Globulin 3.2 Albumin/Globulin Ratio 0.8 L 11/04/16 11:17 WBC RBC Hgb Hct MCV MCH MCHC RDW Plt Count MPV Neut % (Auto) Lymph % (Auto) [place] % (Auto) Eos % (Auto) Baso % (Auto) Neut # Lymph # [place] # Eos # Baso # Neutrophils % (Manual) Lymphocytes % (Manual) Reactive Lymphs % Monocytes % (Manual) Eosinophils % (Manual) Platelet Estimate Hypochromasia (manual) Poikilocytosis (manual Anisocytosis (manual) Macrocytosis (manual) Target Cells Puncture Site pCO2 pO2 HCO3 ABG pH ABG Total CO2 ABG O2 Saturation ABG Base Excess ABG Hemoglobin ABG Carboxyhemoglobin POC ABG HHb (Measured) ABG Methemoglobin Nicolas Test A-a O2 Difference Respiratory Index Hgb O2 Saturation Vent Mode Mechanical Rate FiO2 Tidal Volume PEEP Sodium Potassium Chloride Carbon Dioxide Anion Gap BUN Creatinine Est GFR ( Amer) Est GFR (Non-Af Amer) POC Glucose (mg/dL) 157 H Random Glucose Calcium Phosphorus Magnesium Total Bilirubin AST ALT Alkaline Phosphatase Total Protein Albumin Globulin Albumin/Globulin Ratio Critical Care Progress Note - Nutrition Nutrition: Nutrition Category Date Time Status NPO Diet [DIET] Diets 11/04/16 Dinner Active Assessment/Plan (1) Acute respiratory failure with hypoxemia Current Visit: Yes Status: Acute Comment: Continue ventilatory support Picture consistent with ARDS Low titer volume Continue PEEP and reduce FiO2 70% Continue with pigtail catheter Continue with IV antibiotics no waening as patient is requiring high FiO2 (2) Acute renal failure (ARF) Current Visit: Yes Status: Acute Comment: Continue hemodialysis (3) Pneumonia Current Visit: Yes Status: Acute Comment: Continue antibiotics as per infectious disease Attending/Attestation - Attestation I have personally seen and examined this patient.: Yes I have fully participated in the care of the patient.: Yes I have reviewed all pertinent clinical information: Yes Notes (Text): 11/04/16 17:35 Patient seen and examined in the intensive care unit. Case discussed with STAFF in the morning rounds. Patient extubated after weaning trial Uptake unresponsive Able to cough up secretions Getting hemodialysis Continue antibiotics Swallowing evaluation
[2016-11-04] MEDS: Dexmedetomidine Hydrochloride 200 MCG in Sodium Chloride 0.9% 48 ML IV PRN ×4 (13:36→21:09)
--- NOTE | 2016-11-04 14:58 | CP.PCM.PN ---
Subjective - Date & Time of Evaluation Date of Evaluation: 11/04/16 Time of Evaluation: 02:40 - Subjective Subjective: Pt is extubated. Alert & communicative No resp distress Objective - Vital Signs/Intake and Output Vital Signs (last 24 hours): Temp Pulse Resp BP Pulse Ox 98.4 F 86 16 93/46 L 91 L 11/04/16 12:00 11/04/16 14:00 11/04/16 14:00 11/04/16 14:00 11/04/16 14:00 Intake and Output: 11/04/16 11/04/16 06:59 18:59 Intake Total 787.8 343.0 Output Total 680 575 Balance 107.8 -232.0 - Medications Medications: Current Medications Acetaminophen (Tylenol 650mg/20.3ml Solution Ud) 650 mg PO Q6 PRN PRN Reason: Temperature Last Admin: 11/02/16 23:46 Dose: 650 mg Albumin Human (Albumin Human 25% (12.5 Gm/50 Ml)) 12.5 gm IV Q8H COUNT [facility]CLUDES [facility] Last Admin: 10/27/16 12:01 Dose: Not Given Albuterol Sulfate (Albuterol 0.083% Inhal Nikky (2.5 Mg/3 Ml) Ud) 2.5 mg INH RQ6 COUNT INCLUDES [facility] Last Admin: 11/04/16 13:04 Dose: 2.5 mg Epoetin Humphrey (Procrit) 10,000 unit IV [facility] Last Admin: 11/02/16 15:15 Dose: 10,000 unit Ferric Sodium Gluconate Complex (Ferrlecit) 125 mg IVPB DAILY COUNT [facility]CLUDES [facility] Stop: 11/10/16 10:13 Last Admin: 11/04/16 12:25 Dose: Not Given Heparin Sodium (Porcine) (Heparin) 3,700 units IVP [facility] Last Admin: 11/02/16 16:00 Dose: 3,700 units Propofol (Diprivan) 1,000 mg in 100 mls @ 2.775 mls/hr IV .Q24H PRN; Protocol; 5 MCG/KG/MIN PRN Reason: TITRATE PER MD ORDER Last Titration: 11/04/16 08:30 Dose: 0 mcg/kg/min, 0 mls/hr Micafungin Sodium 100 mg/ (Sodium Chloride) 100 mls @ 100 mls/hr IV Q24H COUNT [facility]CLUDES [facility] Last Admin: 11/03/16 18:06 Dose: 100 mls/hr Meropenem 500 mg/ Sodium (Chloride) 100 mls @ 100 mls/hr IVPB Q12H COUNT [facility]CLUDES [facility] Last Admin: 11/04/16 06:15 Dose: 100 mls/hr Dexmedetomidine HCl 200 mcg/ (Sodium Chloride) 50 mls @ 4.46 mls/hr IV TITR PRN ; Protocol; 0.2 MCG/KG/HR PRN Reason: Agitation Last Admin: 11/04/16 14:17 Dose: 0.8 mcg/kg/hr, 17.84 mls/hr Norepinephrine Bitartrate 4 mg (/ Dextrose) 254 mls @ 15.24 mls/hr IV .[id number] PRN; Protocol; 4 MCG/MIN PRN Reason: TITRATE PER MD ORDER Last Titration: 11/04/16 14:42 Dose: 5 mcg/min, 19.05 mls/hr Vancomycin/Sodium Chloride (Vancocin) 1 gm in 200 mls @ 166.7 mls/hr IVPB ONCE ONE Stop: 11/04/16 19:11 Insulin Human Regular (Novolin R) 0 unit SC Q6 MIRA PRN Reason: Protocol Last Admin: 11/04/16 12:13 Dose: Not Given Lactic Acid (Lac-Hydrin 12% Lotion (225 G)) 0 gm EXT BID COUNT [facility]CLUDES [facility] Last Admin: 11/04/16 12:08 Dose: 1 applic Methylprednisolone (Solu-Medrol) 40 mg IV DAILY COUNT [facility]CLUD[facility] Last Admin: 11/04/16 11:00 Dose: 40 mg Midazolam HCl (Versed Inj) 2 mg IVP Q4H PRN PRN Reason: Agitation Last Admin: 10/25/16 08:45 Dose: 2 mg Multivitamins/Vitamin C (Multi-Delyn Liquid) 5 ml PO DAILY COUNT [facility]CLUDES [facility] Last Admin: 11/04/16 12:14 Dose: Not Given Nystatin (Nystop Topical Powder) 1 applic TOP BID COUNT INCLUDES [facility] Stop: 11/09/16 10:00 Last Admin: 11/04/16 12:08 Dose: 1 applic Pantoprazole Sodium (Protonix Inj) 40 mg IVP DAILY COUNT [facility]CLUDES [facility] Last Admin: 11/04/16 12:11 Dose: 40 mg Sevelamer Carbonate (Renvela) 2.4 gm NG TIDCC COUNT INCLUDES [facility] Last Admin: 11/04/16 12:14 Dose: Not Given - Labs Labs: 11/04/16 06:23 11/04/16 06:21 PT 17.7 SECONDS (9.7-12.2) H 10/29/16 06:22 INR 1.6 10/29/16 06:22 APTT 30 SECONDS (21-34) 10/29/16 06:22 - Respiratory Exam Additional comments: Lungs clear - Cardiovascular Exam Cardiovascular Exam: REGULAR RHYTHM - Extremities Exam Additional comments: No edema or cyanosis Assessment and Plan - Assessment and Plan (Free Text) Assessment: RUPALI requiring dialysis UO is improving but BUN/Cr remain high Will continue dialysis support B/L pneumonia,& pleural effusions Liver cirrhosis, alcohol abuse Plan: Contiue dialysis support & monitor closely Decrease UF
[2016-11-04] MEDS: EPOETIN ALFA 10,000 UNIT/ML ML IV SCH (16:39)
--- NOTE | 2016-11-04 16:47 | CP.PCM.PN ---
Subjective - Date & Time of Evaluation Date of Evaluation: 11/04/16 Time of Evaluation: 13:00 - Subjective Subjective: Patient seen and examined in ICU. Patient is extubated. Objective - Vital Signs/Intake and Output Vital Signs (last 24 hours): Temp Pulse Resp BP Pulse Ox 97.5 F L 80 20 109/73 95 11/04/16 14:55 11/04/16 16:25 11/04/16 16:25 11/04/16 16:25 11/04/16 16:25 Intake and Output: 11/04/16 11/04/16 06:59 18:59 Intake Total 787.8 455.3 Output Total 680 1000 Balance 107.8 -544.7 - Medications Medications: Current Medications Acetaminophen (Tylenol 650mg/20.3ml Solution Ud) 650 mg PO Q6 PRN PRN Reason: Temperature Last Admin: 11/02/16 23:46 Dose: 650 mg Albumin Human (Albumin Human 25% (12.5 Gm/50 Ml)) 12.5 gm IV Q8H [facility] Last Admin: 10/27/16 12:01 Dose: Not Given Albuterol Sulfate (Albuterol 0.083% Inhal [place]ky (2.5 Mg/3 Ml) Ud) 2.5 mg INH RQ6 [facility] Last Admin: 11/04/16 13:04 Dose: 2.5 mg Epoetin Humphrey (Procrit) 10,000 unit IV [facility] Last Admin: 11/04/16 16:39 Dose: 10,000 unit Ferric Sodium Gluconate Complex (Ferrlecit) 125 mg IVPB DAILY [facility] Stop: 11/10/16 10:13 Last Admin: 11/04/16 12:25 Dose: Not Given Heparin Sodium (Porcine) (Heparin) 3,700 units IVP [facility] Last Admin: 11/04/16 16:38 Dose: 3,700 units Propofol (Diprivan) 1,000 mg in 100 mls @ 2.775 mls/hr IV .Q24H PRN; Protocol; 5 MCG/KG/MIN PRN Reason: TITRATE PER MD ORDER Last Titration: 11/04/16 08:30 Dose: 0 mcg/kg/min, 0 mls/hr Micafungin Sodium 100 mg/ (Sodium Chloride) 100 mls @ 100 mls/hr IV Q24H [facility] Last Admin: 11/03/16 18:06 Dose: 100 mls/hr Meropenem 500 mg/ Sodium (Chloride) 100 mls @ 100 mls/hr IVPB Q12H [facility] Last Admin: 11/04/16 06:15 Dose: 100 mls/hr Dexmedetomidine HCl 200 mcg/ (Sodium Chloride) 50 mls @ 4.46 mls/hr IV TITR PRN ; Protocol; 0.2 MCG/KG/HR PRN Reason: Agitation Last Admin: 11/04/16 14:17 Dose: 0.8 mcg/kg/hr, 17.84 mls/hr Norepinephrine Bitartrate 4 mg (/ Dextrose) 254 mls @ 15.24 mls/hr IV .[id number] PRN; Protocol; 4 MCG/MIN PRN Reason: TITRATE PER MD ORDER Last Admin: 11/04/16 15:27 Dose: 3 mcg/min, 11.43 mls/hr Vancomycin/Sodium Chloride (Vancocin) 1 gm in 200 mls @ 166.7 mls/hr IVPB ONCE ONE Stop: 11/04/16 19:11 Insulin Human Regular (Novolin R) 0 unit SC Q6 MIRA PRN Reason: Protocol Last Admin: 11/04/16 12:13 Dose: Not Given Lactic Acid (Lac-Hydrin 12% Lotion (225 G)) 0 gm EXT BID [facility] Last Admin: 11/04/16 12:08 Dose: 1 applic Methylprednisolone (Solu-Medrol) 40 mg IV DAILY [facility] Last Admin: 11/04/16 11:00 Dose: 40 mg Midazolam HCl (Versed Inj) 2 mg IVP Q4H PRN PRN Reason: Agitation Last Admin: 10/25/16 08:45 Dose: 2 mg Multivitamins/Vitamin C (Multi-Delyn Liquid) 5 ml PO DAILY [facility] Last Admin: 11/04/16 12:14 Dose: Not Given Nystatin (Nystop Topical Powder) 1 applic TOP BID [facility] Stop: 11/09/16 10:00 Last Admin: 11/04/16 12:08 Dose: 1 applic Pantoprazole Sodium (Protonix Inj) 40 mg IVP DAILY [facility] Last Admin: 11/04/16 12:11 Dose: 40 mg Sevelamer Carbonate (Renvela) 2.4 gm NG TIDCC [facility] Last Admin: 08/02/17 12:14 Dose: Not Given - Labs Labs: 11/04/16 06:23 11/04/16 06:21 PT 17.7 SECONDS (9.7-12.2) H 10/29/16 06:22 INR 1.6 10/29/16 06:22 APTT 30 SECONDS (21-34) 10/29/16 06:22 - Head Exam Head Exam: ATRAUMATIC, NORMOCEPHALIC - Eye Exam Eye Exam: Normal appearance - ENT Exam ENT Exam: Mucous Membranes Moist - Respiratory Exam Respiratory Exam: Clear to Ausculation Bilateral Additional comments: Left-sided chest tube present. - Cardiovascular Exam Cardiovascular Exam: REGULAR RHYTHM, +S1, +S2 - GI/Abdominal Exam GI & Abdominal Exam: Soft, Normal Bowel Sounds - Neurological Exam Neurological Exam: Alert, Oriented x3 Assessment and Plan (1) Alcohol withdrawal Status: Acute (2) Hypoxemia Status: Acute (3) Pneumonia Status: Acute (4) Respiratory distress Status: Acute (5) Seizure disorder Status: Acute (6) Sepsis Status: Acute (7) Thrombocythemia Status: Chronic (8) Psoriasis Status: Acute (9) Renal failure Status: Acute (10) Spontaneous pneumothorax Status: Acute - Assessment and Plan (Free Text) Plan: Patient is extubated. Respiratory status is stable. Continue antibiotics for pneumonia Patient to has left-sided chest tube. Management as per ICU team. Discussed with ICU attending
[2016-11-04] MEDS: Ferric Sodium Gluconat Complex 62.5 mg/5 ml Vial IVPB SCH ×2 (16:48→17:17)
[2016-11-04] MEDS ORDERED: Vancomycin 1 gm/NS 200 ml 1 GM/200 ML BAG IVPB ONE (18:00)
[2016-11-04] MEDS: Micafungin 100 MG in Sodium Chloride 0.9% 100 ML IV SCH (19:30)
[2016-11-04] MEDS: Midazolam 2 MG/2 ML VIAL IVP PRN (23:39)
[2016-11-05] MEDS: Albuterol 0.083% Inhal Sol (2.5 mg/3 mL) UD INH SCH ×4 (01:22→19:21)
[2016-11-05] MEDS: Dexmedetomidine Hydrochloride 200 MCG in Sodium Chloride 0.9% 48 ML IV PRN ×2 (02:30→06:41)
[2016-11-05 05:51] LABS: ABG ALLEN TEST POS; ARTERIAL BLOOD HGB O2 SAT 88.4 % (95.0-98.0); CARBOXYHEMOGLOBIN 2.8 % (0.5-1.5); DRAW SITE RR; HHB 7.9 % (0.0-5.0); METHEMOGLOBIN 0.9 % (0.0-3.0)
[2016-11-05] MEDS: Meropenem 500 MG in Sodium Chloride 0.9% 100 ML IVPB SCH ×2 (06:00→17:46)
[2016-11-05 06:45] LABS: BASO # 0.1 K/uL (0.0-0.2); BASO % 0.6 % (0.0-2.0); EOS # 0.3 K/uL (0.0-0.7); EOS % 2.9 % (0.0-4.0); HEMATOCRIT 24.6 % (35.0-51.0); LYMPH # 0.9 K/uL (1.0-4.3); LYMPH % 8.2 % (20.0-40.0); MEAN CELL VOLUME 98.5 fL (80.0-94.0); MEAN CORPUSCULAR HEMOGLOBIN 32.8 pg (27.0-31.0); MEAN CORPUSCULAR HGB CONC 33.3 g/dL (33.0-37.0); MEAN PLATELET VOLUME 10.6 fL (7.2-11.7); MONO # 0.7 K/uL (0.0-0.8); MONO % 6.6 % (0.0-10.0); PLATELET COUNT 106 K/uL (130-400); RED CELL DISTRIBUTION WIDTH 15.1 % (11.5-14.5); WHITE BLOOD COUNT 11.1 K/uL (4.8-10.8)
[2016-11-05 06:46] LABS: ALB/GLOB RATIO 0.8 (1.0-2.1); BILIRUBIN,TOTAL 2.3 mg/dL (0.2-1.3); CALCIUM 7.2 mg/dl (8.6-10.4); MAGNESIUM 2.1 mg/dL (1.6-2.3); PHOSPHOROUS 7.1 mg/dL (2.5-4.5); POTASSIUM 4.1 mmol/L (3.6-5.2); TOTAL PROTEIN 6.3 g/dL (6.3-8.3)
[2016-11-05] MEDS: (Novolin R) Insulin Human Regular 100 units/ml vial SC SCH ×3 (07:02→16:49)
[2016-11-05 08:21] LABS: NEUTROPHIL 85 % (50-75); TOTAL CELLS COUNTED 100
[2016-11-05] MEDS: Sevelamer Carb 2.4 gm/Packet NG SCH ×3 (08:22→16:51)
[2016-11-05 08:24] LABS: GIANT PLATELETS PRESENT; LARGE PLATELETS PRESENT
--- NOTE | 2016-11-05 09:30 | CP.CCUPN ---
<Zoey Chavez - Last Filed: 11/05/16 16:09> CCU Subjective - Physician Review Subjective (Free Text): Patient was seen and examined at bedside in the morning. Patient is alert and oriented x3. Patient is extubated and using a ventimask. Patient reports he is feeling well and has no complaints. Patient denies chest pain, abdominal pain, nausea, vomiting, diarrhea, constipation, fevers, and headaches. 11/05/16 09:27 CCU Objective - Vital Signs / Intake & Output Vital Signs (Last 4 hours): Vital Signs Temp Pulse BP Pulse Ox 11/05/16 08:47 75 90/53 L 89 L 11/05/16 08:27 82 99/56 L 87 L 11/05/16 08:09 85 93/50 L 11/05/16 08:00 97.6 F 80 78 L 11/05/16 07:47 82 104/63 94 L 11/05/16 07:27 66 104/66 94 L 11/05/16 07:07 72 106/67 94 L 11/05/16 07:00 68 93 L 11/05/16 06:47 60 95 11/05/16 06:27 61 96 11/05/16 06:07 72 84/43 L 92 L Intake and Output (Last 8hrs): Intake & Output 11/04/16 11/05/16 11/05/16 22:59 06:59 14:59 Intake Total 896.6 346.4 18.3 Output Total 750 430 80 Balance 146.6 -83.6 -61.7 Intake: IV 271 100 Intake, IV Amount 625.6 246.4 18.3 Right Proximal Port 153.9 86.4 10.8 Internal Jugular Right jugular TLC distal 71.7 60.0 7.5 port Right jugular TLC medial 400 100 port Tube Feeding 0 Output: Chest Tube Drainage 30 Left Mid-Axillary Chest 30 Urine 600 400 80 Urethral (Walters) 600 400 80 Stool 150 - Physical Exam Head: Positive for: Atraumatic, Normocephalic Extroacular Muscles: Positive for: EOMI Mouth: Positive for: Moist Mucous Membranes Respiratory/Chest: Positive for: Wheezes, Decreased Breath Sounds, Rhonchi Cardiovascular: Positive for: Regular Rate and Rhythm, Normal S1, S2 Abdomen: Positive for: Distention, Normal Bowel Sounds Genitourinary Male: Positive for: Other (walters in place) Upper Extremity: Negative for: Edema Lower Extremity: Negative for: Edema Neurological: Positive for: GCS=15, Other (tremors). Negative for: Speech Normal (patient is intubated and sedated ) Skin: Positive for: Warm, Other (Psoriasis located on b/l knees, bilateral upper extremities) Psychiatric: Positive for: Alert (patient is sedated and intubated ), Oriented x 3 - Medications Active Medications: Active Medications Generic Name Dose Route Start Last Admin Trade Name Freq PRN Reason Stop Dose Admin Acetaminophen 650 mg 10/25/16 11:56 11/02/16 23:46 Tylenol 650mg/20.3ml Solution Ud PO 650 mg Q6 PRN Administration Temperature Albumin Human 12.5 gm 10/26/16 18:45 10/27/16 12:01 Albumin Human 25% (12.5 Gm/50 Ml) IV Not Given Q8H MIRA Albuterol Sulfate 2.5 mg 10/31/16 14:00 11/05/16 07:30 Albuterol 0.083% Inhal Nikky (2.5 Mg/3 Ml) Ud INH 2.5 mg RQ6 MIRA Administration Epoetin Humphrey 10,000 unit 11/02/16 14:45 11/04/16 16:39 Procrit IV 10,000 unit [facility] Administration Ferric Sodium Gluconate Complex 125 mg 11/02/16 10:12 11/04/16 17:17 Ferrlecit IVPB 11/10/16 10:13 125 mg DAILY MIRA Administration Heparin Sodium (Porcine) 3,700 units 11/02/16 15:30 11/04/16 16:38 Heparin IVP 3,700 units MWF MIRA Administration Propofol 1,000 mg in 100 mls @ 2.775 mls/hr 10/31/16 09:51 11/04/16 08:30 Diprivan IV 0 mcg/kg/min .Q24H PRN 0 mls/hr TITRATE PER MD ORDER Titration Protocol 5 MCG/KG/MIN Micafungin Sodium 100 mg/ 100 mls @ 100 mls/hr 11/01/16 17:30 11/04/16 19:30 Sodium Chloride IV 100 mls/hr Q24H MIRA Administration Meropenem 500 mg/ Sodium 100 mls @ 100 mls/hr 11/01/16 17:45 11/05/16 06:00 Chloride IVPB 100 mls/hr Q12H MIRA Administration Dexmedetomidine HCl 200 mcg/ 50 mls @ 4.46 mls/hr 11/03/16 08:09 11/05/16 06: 41 Sodium Chloride IV 0.5 mcg/kg/hr TITR PRN 11.15 mls/hr Agitation Administration Protocol 0.2 MCG/KG/HR Norepinephrine Bitartrate 4 mg 254 mls @ 15.24 mls/hr 11/03/16 10:47 21:37 / Dextrose IV 1 mcg/min .[id number] PRN 3.81 mls/hr TITRATE PER MD ORDER Titration Protocol 4 MCG/MIN Insulin Human Regular 0 unit 11/01/16 12:00 11/05/16 07:02 Novolin R SC Not Given Q6 MIRA Protocol Lactic Acid 0 gm 10/22/16 13:00 11/04/16 18:08 Lac-Hydrin 12% Lotion (225 G) EXT 1 applic BID MIRA Administration Methylprednisolone 40 mg 11/03/16 10:00 11/04/16 11:00 Solu-Medrol IV 40 mg DAILY MIRA Administration Midazolam HCl 2 mg 10/22/16 19:22 11/04/16 23:39 Versed Inj IVP 2 mg Q4H PRN Administration Agitation Multivitamins/Vitamin C 5 ml 11/02/16 10:15 11/04/16 12:14 Multi-Delyn Liquid PO Not Given DAILY MIRA Nystatin 1 applic 10/26/16 10:00 11/04/16 18:08 Nystop Topical Powder TOP 11/09/16 10:00 1 applic BID MIRA Administration Pantoprazole Sodium 40 mg 10/26/16 10:00 11/04/16 12:11 Protonix Inj IVP 40 mg DAILY MIRA Administration Sevelamer Carbonate 2.4 gm 11/01/16 12:00 11/05/16 08:22 Renvela NG 2.4 gm TIDCC MIRA Administration - Patient Studies Lab Studies: Microbiology Studies 11/01/16 17:29 Blood Culture - Preliminary Blood-Venous NO GROWTH AFTER 3 DAYS 11/01/16 17:29 Blood Culture - Preliminary Blood-Venous NO GROWTH AFTER 3 DAYS 11/01/16 17:30 Gram Stain - Final Trachasp Sputum Culture - Final NORMAL ORAL TRICE Lab Studies 11/05/16 11/05/16 11/05/16 Range/Units 06:57 06:32 06:32 WBC 11.1 H (4.8-10.8) K/uL RBC 2.50 L (4.40-5.90) Mil/uL Hgb 8.2 L (12.0-18.0) g/dL Hct 24.6 L (35.0-51.0) % MCV 98.5 H (80.0-94.0) fL MCH 32.8 H (27.0-31.0) pg MCHC 33.3 (33.0-37.0) g/dL RDW 15.1 H (11.5-14.5) % Plt Count 106 L (130-400) K/uL MPV 10.6 (7.2-11.7) fL Neut % (Auto) 81.7 H (50.0-75.0) % Lymph % (Auto) 8.2 L (20.0-40.0) % [place] % (Auto) 6.6 (0.0-10.0) % Eos % (Auto) 2.9 (0.0-4.0) % Baso % (Auto) 0.6 (0.0-2.0) % Neut # 9.0 H (1.8-7.0) K/uL Lymph # 0.9 L (1.0-4.3) K/uL [place] # 0.7 (0.0-0.8) K/uL Eos # 0.3 (0.0-0.7) K/uL Baso # 0.1 (0.0-0.2) K/uL Neutrophils % (Manual) 85 H (50-75) % Lymphocytes % (Manual) 7 L (20-40) % Monocytes % (Manual) 8 (0-10) % Platelet Estimate Slightly decreased L (NORMAL) Large Platelets Present Giant Platelets Present Hypochromasia (manual) Moderate Poikilocytosis (manual Slight Anisocytosis (manual) Slight Target Cells Slight Puncture Site pCO2 (35-45) mm/Hg pO2 (80-100) mm/Hg HCO3 (21-28) mmol/L ABG pH (7.35-7.45) ABG Total CO2 (22-28) mmol/L ABG O2 Saturation (95-98) % ABG Base Excess (-2.0-3.0) mmol/L ABG Hemoglobin (11.7-17.4) g/dL ABG Carboxyhemoglobin (0.5-1.5) % POC ABG HHb (Measured) (0.0-5.0) % ABG Methemoglobin (0.0-3.0) % Nicolas Test A-a O2 Difference mm/Hg Respiratory Index Hgb O2 Saturation (95.0-98.0) % FiO2 % Sodium 144 (132-148) mmol/L Potassium 4.1 (3.6-5.2) mmol/L Chloride 101 (98-107) mmol/L Carbon Dioxide 28 (22-30) mmol/L Anion Gap 20 (10-20) BUN 71 H (9-20) mg/dL Creatinine 3.3 H (0.8-1.5) MG/DL Est GFR ( Amer) 25 Est GFR (Non-Af Amer) 20 POC Glucose (mg/dL) 101 (65-110) mg/dL Random Glucose 91 (75-110) mg/dL Calcium 7.2 L (8.6-10.4) mg/dl Phosphorus 7.1 H (2.5-4.5) mg/dL Magnesium 2.1 (1.6-2.3) mg/dL Total Bilirubin 2.3 H (0.2-1.3) mg/dL AST 45 (17-59) U/L ALT 64 (21-72) U/L Alkaline Phosphatase 104 (38-126) U/L Total Protein 6.3 (6.3-8.3) g/dL Albumin 2.8 L (3.5-5.0) g/dL Globulin 3.5 (2.2-3.9) gm/dL Albumin/Globulin Ratio 0.8 L (1.0-2.1) 11/05/16 11/04/16 11/04/16 Range/Units 05:29 23:54 17:43 WBC (4.8-10.8) K/uL RBC (4.40-5.90) Mil/uL Hgb (12.0-18.0) g/dL Hct (35.0-51.0) % MCV (80.0-94.0) fL MCH (27.0-31.0) pg MCHC (33.0-37.0) g/dL RDW (11.5-14.5) % Plt Count (130-400) K/uL MPV (7.2-11.7) fL Neut % (Auto) (50.0-75.0) % Lymph % (Auto) (20.0-40.0) % [place] % (Auto) (0.0-10.0) % Eos % (Auto) (0.0-4.0) % Baso % (Auto) (0.0-2.0) % Neut # (1.8-7.0) K/uL Lymph # (1.0-4.3) K/uL [place] # (0.0-0.8) K/uL Eos # (0.0-0.7) K/uL Baso # (0.0-0.2) K/uL Neutrophils % (Manual) (50-75) % Lymphocytes % (Manual) (20-40) % Monocytes % (Manual) (0-10) % Platelet Estimate (NORMAL) Large Platelets Giant Platelets Hypochromasia (manual) Poikilocytosis (manual Anisocytosis (manual) Target Cells Puncture Site Rr pCO2 39 (35-45) mm/Hg pO2 50 L (80-100) mm/Hg HCO3 27.1 (21-28) mmol/L ABG pH 7.45 (7.35-7.45) ABG Total CO2 28.3 H (22-28) mmol/L ABG O2 Saturation 91.8 L (95-98) % ABG Base Excess 2.9 (-2.0-3.0) mmol/L ABG Hemoglobin 8.4 L (11.7-17.4) g/dL ABG Carboxyhemoglobin 2.8 H (0.5-1.5) % POC ABG HHb (Measured) 7.9 H (0.0-5.0) % ABG Methemoglobin 0.9 (0.0-3.0) % Nicolas Test Pos A-a O2 Difference 258.0 mm/Hg Respiratory Index 5.2 Hgb O2 Saturation 88.4 L (95.0-98.0) % FiO2 50.0 % Sodium (132-148) mmol/L Potassium (3.6-5.2) mmol/L Chloride (98-107) mmol/L Carbon Dioxide (22-30) mmol/L Anion Gap (10-20) BUN (9-20) mg/dL Creatinine (0.8-1.5) MG/DL Est GFR ( Amer) Est GFR (Non-Af Amer) POC Glucose (mg/dL) 119 H 139 H (65-110) mg/dL Random Glucose (75-110) mg/dL Calcium (8.6-10.4) mg/dl Phosphorus (2.5-4.5) mg/dL Magnesium (1.6-2.3) mg/dL Total Bilirubin (0.2-1.3) mg/dL AST (17-59) U/L ALT (21-72) U/L Alkaline Phosphatase (38-126) U/L Total Protein (6.3-8.3) g/dL Albumin (3.5-5.0) g/dL Globulin (2.2-3.9) gm/dL Albumin/Globulin Ratio (1.0-2.1) 11/04/16 Range/Units 11:17 WBC (4.8-10.8) K/uL RBC (4.40-5.90) Mil/uL Hgb (12.0-18.0) g/dL Hct (35.0-51.0) % MCV (80.0-94.0) fL MCH (27.0-31.0) pg MCHC (33.0-37.0) g/dL RDW (11.5-14.5) % Plt Count (130-400) K/uL MPV (7.2-11.7) fL Neut % (Auto) (50.0-75.0) % Lymph % (Auto) (20.0-40.0) % [place] % (Auto) (0.0-10.0) % Eos % (Auto) (0.0-4.0) % Baso % (Auto) (0.0-2.0) % Neut # (1.8-7.0) K/uL Lymph # (1.0-4.3) K/uL [place] # (0.0-0.8) K/uL Eos # (0.0-0.7) K/uL Baso # (0.0-0.2) K/uL Neutrophils % (Manual) (50-75) % Lymphocytes % (Manual) (20-40) % Monocytes % (Manual) (0-10) % Platelet Estimate (NORMAL) Large Platelets Giant Platelets Hypochromasia (manual) Poikilocytosis (manual Anisocytosis (manual) Target Cells Puncture Site pCO2 (35-45) mm/Hg pO2 (80-100) mm/Hg HCO3 (21-28) mmol/L ABG pH (7.35-7.45) ABG Total CO2 (22-28) mmol/L ABG O2 Saturation (95-98) % ABG Base Excess (-2.0-3.0) mmol/L ABG Hemoglobin (11.7-17.4) g/dL ABG Carboxyhemoglobin (0.5-1.5) % POC ABG HHb (Measured) (0.0-5.0) % ABG Methemoglobin (0.0-3.0) % Nicolas Test A-a O2 Difference mm/Hg Respiratory Index Hgb O2 Saturation (95.0-98.0) % FiO2 % Sodium (132-148) mmol/L Potassium (3.6-5.2) mmol/L Chloride (98-107) mmol/L Carbon Dioxide (22-30) mmol/L Anion Gap (10-20) BUN (9-20) mg/dL Creatinine (0.8-1.5) MG/DL Est GFR ( Amer) Est GFR (Non-Af Amer) POC Glucose (mg/dL) 157 H (65-110) mg/dL Random Glucose (75-110) mg/dL Calcium (8.6-10.4) mg/dl Phosphorus (2.5-4.5) mg/dL Magnesium (1.6-2.3) mg/dL Total Bilirubin (0.2-1.3) mg/dL AST (17-59) U/L ALT (21-72) U/L Alkaline Phosphatase (38-126) U/L Total Protein (6.3-8.3) g/dL Albumin (3.5-5.0) g/dL Globulin (2.2-3.9) gm/dL Albumin/Globulin Ratio (1.0-2.1) Laboratory Results - last 24 hr 11/04/16 11/04/16 11/04/16 11:17 17:43 23:54 WBC RBC Hgb Hct MCV MCH MCHC RDW Plt Count MPV Neut % (Auto) Lymph % (Auto) [place] % (Auto) Eos % (Auto) Baso % (Auto) Neut # Lymph # [place] # Eos # Baso # Neutrophils % (Manual) Lymphocytes % (Manual) Monocytes % (Manual) Platelet Estimate Large Platelets Giant Platelets Hypochromasia (manual) Poikilocytosis (manual Anisocytosis (manual) Target Cells Puncture Site pCO2 pO2 HCO3 ABG pH ABG Total CO2 ABG O2 Saturation ABG Base Excess ABG Hemoglobin ABG Carboxyhemoglobin POC ABG HHb (Measured) ABG Methemoglobin Nicolas Test A-a O2 Difference Respiratory Index Hgb O2 Saturation FiO2 Sodium Potassium Chloride Carbon Dioxide Anion Gap BUN Creatinine Est GFR ( Amer) Est GFR (Non-Af Amer) POC Glucose (mg/dL) 157 H 139 H 119 H Random Glucose Calcium Phosphorus Magnesium Total Bilirubin AST ALT Alkaline Phosphatase Total Protein Albumin Globulin Albumin/Globulin Ratio 11/05/16 11/05/16 11/05/16 05:29 06:32 06:32 WBC 11.1 H RBC 2.50 L Hgb 8.2 L Hct 24.6 L MCV 98.5 H MCH 32.8 H MCHC 33.3 RDW 15.1 H Plt Count 106 L MPV 10.6 Neut % (Auto) 81.7 H Lymph % (Auto) 8.2 L [place] % (Auto) 6.6 Eos % (Auto) 2.9 Baso % (Auto) 0.6 Neut # 9.0 H Lymph # 0.9 L [place] # 0.7 Eos # 0.3 Baso # 0.1 Neutrophils % (Manual) 85 H Lymphocytes % (Manual) 7 L Monocytes % (Manual) 8 Platelet Estimate Slightly decreased L Large Platelets Present Giant Platelets Present Hypochromasia (manual) Moderate Poikilocytosis (manual Slight Anisocytosis (manual) Slight Target Cells Slight Puncture Site Rr pCO2 39 pO2 50 L HCO3 27.1 ABG pH 7.45 ABG Total CO2 28.3 H ABG O2 Saturation 91.8 L ABG Base Excess 2.9 ABG Hemoglobin 8.4 L ABG Carboxyhemoglobin 2.8 H POC ABG HHb (Measured) 7.9 H ABG Methemoglobin 0.9 Nicolas Test Pos A-a O2 Difference 258.0 Respiratory Index 5.2 Hgb O2 Saturation 88.4 L FiO2 50.0 Sodium 144 Potassium 4.1 Chloride 101 Carbon Dioxide 28 Anion Gap 20 BUN 71 H Creatinine 3.3 H Est GFR ( Amer) 25 Est GFR (Non-Af Amer) 20 POC Glucose (mg/dL) Random Glucose 91 Calcium 7.2 L Phosphorus 7.1 H Magnesium 2.1 Total Bilirubin 2.3 H AST 45 ALT 64 Alkaline Phosphatase 104 Total Protein 6.3 Albumin 2.8 L Globulin 3.5 Albumin/Globulin Ratio 0.8 L 11/05/16 06:57 WBC RBC Hgb Hct MCV MCH MCHC RDW Plt Count MPV Neut % (Auto) Lymph % (Auto) [place] % (Auto) Eos % (Auto) Baso % (Auto) Neut # Lymph # [place] # Eos # Baso # Neutrophils % (Manual) Lymphocytes % (Manual) Monocytes % (Manual) Platelet Estimate Large Platelets Giant Platelets Hypochromasia (manual) Poikilocytosis (manual Anisocytosis (manual) Target Cells Puncture Site pCO2 pO2 HCO3 ABG pH ABG Total CO2 ABG O2 Saturation ABG Base Excess ABG Hemoglobin ABG Carboxyhemoglobin POC ABG HHb (Measured) ABG Methemoglobin Nicolas Test A-a O2 Difference Respiratory Index Hgb O2 Saturation FiO2 Sodium Potassium Chloride Carbon Dioxide Anion Gap BUN Creatinine Est GFR ( Amer) Est GFR (Non-Af Amer) POC Glucose (mg/dL) 101 Random Glucose Calcium Phosphorus Magnesium Total Bilirubin AST ALT Alkaline Phosphatase Total Protein Albumin Globulin Albumin/Globulin Ratio Fingerstick Blood Sugar Results: 119 Review of Systems - Constitutional Constitutional: absent: Fever - Cardiovascular Cardiovascular: absent: Chest Pain, Dyspnea, Palpitations - Respiratory Respiratory: absent: Cough, Dyspnea - Gastrointestinal Gastrointestinal: absent: Abdominal Pain, Constipation, Diarrhea, Nausea, Vomiting - Neurological Neurological: absent: Headaches Critical Care Progress Note - Nutrition Nutrition: Nutrition Category Date Time Status Consistent Carbohydrate [DIET] Diets 11/05/16 Breakfast Active Assessment/Plan - Assessment and Plan (Free Text) Assessment: 45 year old male with medical history of alcoholism, presents to the ED with complaint of worsening cough, abdominal pain for seven days. Neuro: - Alert and orientedx3 - Neurology Consult: Dr. Pineda --> help appreciated - Chronic alcohol abuse - Sedated - Propofol 1,000mg - Precedex 200mcg - 2mg Midazolam - After permacath (10/30) changed to Midazolam PRN Pulm: - No longer Intubated--> Extubated on 11/04/16 - Hypoxic on vent secondary to ARDS - chest x-ray (10/29): Small left apical pneumothorax - pigtail catheter was inserted in the left lung by pulm Dr. Gomez --> help appreciated - keep pigtail catheter until extubation - Severe ARDS - Vent Settings: FiO2 100; Peep 10; Tidal Volume: 400 - Vent settings changed on 11/02: FiO2 60, Peep 5, Tidal Volume 400 - Trachasp/sputum cx: negative; normal oral trice - CXR 11/04: persistent right medial basilar opacity; probable subsegmental atelectasis at left base. - CXR 11/05: interval increase in size of left-sided pneumothorax measuring approximately 3.4 cm in maximum dimension from pleural edge. subtle right upper lobe infiltrate; bibasilar atelectasis. CV: - PICC line placement - Hypotensive, systolic in the 80s (11/03): norephinephrine 4mg in dextrose - BP improved, 113/72 Heme: - Thrombocytopenia - Plateletphresis: 1 unit (10/23) - Plateletphresis: 1 unit (10/28) - Plateletphresis: 1 unit (10/29) - Plateletphresis: 1 unit (10/30) - Platelets: 62 - Platelets on 11/02-11/03: 104 - Platelets on 11/04: 112 - Platelets on 11/05: 106 - Monitor - HIT AB: negative Renal: - Walters placed 10/21 - Monitor - Dialysis started 10/23 - Permacath placement 10/30 - Vascular Surgery Consult: Dr. De La Vega --> help appreciated - Nephrology Consult: Dr. Merida --> help appreciated - Dialysis TTS Endo: - Monitor - No acute issues GI: - Tube Feeding- discontinued - Swallow eval - Carb consistent diet- started 11/05 - Diarrhea, as per the nurse-- resolved - Flexi-seal to be removed today - Stool occult: negative - C. Diff: negative ID: - ID Consult: Dr. Bowers --> help appreciated - Sepsis due to Pneumonia - Blood culture: Strep Pneumoniae - Zosyn stopped 10/22 - Ceftriaxone started 10/22 - Vanco: 1gm dose given 10/30; f/u 500mg after dialysis - Vanco random 11/02: 10.70 - As per Dr. Bowers, continue antibiotics for 4 weeks total; Last day to take antibiotics: 11/23/2016 - Repeat blood cultures have been negative - preliminary - Trachasp/sputum cx: negative; normal oral trice - Bands on 11/03: 4 (at admission, 48) Skin: - Sacral wound developing - Consulted wound care for evaluation DVT proph - SCDs; heparin 3,700 units IV MWF GI proph - Pepcid 20mg PO Daily PT/OT <Nitish Armstrong - Last Filed: 11/05/16 18:07> CCU Objective - Vital Signs / Intake & Output Vital Signs (Last 4 hours): Vital Signs Pulse Resp BP Pulse Ox 11/05/16 14:27 93 H 17 116/70 90 L 11/05/16 14:25 94 H 17 113/72 94 L Intake and Output (Last 8hrs): Intake & Output 11/05/16 11/05/16 11/05/16 06:59 14:59 22:59 Intake Total 346.4 18.3 Output Total 430 80 Balance -83.6 -61.7 Intake: IV 100 Intake, IV Amount 246.4 18.3 Right Proximal Port 86.4 10.8 Internal Jugular Right jugular TLC distal 60.0 7.5 port Right jugular TLC medial 100 port Output: Chest Tube Drainage 30 Left Mid-Axillary Chest 30 Urine 400 80 Urethral (Walters) 400 80 - Medications Active Medications: Active Medications Generic Name Dose Route Start Last Admin Trade Name Freq PRN Reason Stop Dose Admin Acetaminophen 650 mg 10/25/16 11:56 11/02/16 23:46 Tylenol 650mg/20.3ml Solution Ud PO 650 mg Q6 PRN Administration Temperature Albumin Human 12.5 gm 10/26/16 18:45 10/27/16 12:01 Albumin Human 25% (12.5 Gm/50 Ml) IV Not Given Q8H MIRA Albuterol Sulfate 2.5 mg 10/31/16 14:00 11/05/16 13:34 Albuterol 0.083% Inhal Nikky (2.5 Mg/3 Ml) Ud INH 2.5 mg RQ6 MIRA Administration Epoetin Humphrey 10,000 unit 11/02/16 14:45 11/04/16 16:39 Procrit IV 10,000 unit [facility] Administration Ferric Sodium Gluconate Complex 125 mg 11/02/16 10:12 11/05/16 10:01 Ferrlecit IVPB 11/10/16 10:13 125 mg DAILY MIRA Administration Heparin Sodium (Porcine) 3,700 units 11/02/16 15:30 11/04/16 16:38 Heparin IVP 3,700 units [facility] Administration Propofol 1,000 mg in 100 mls @ 2.775 mls/hr 10/31/16 09:51 11/04/16 08:30 Diprivan IV 0 mcg/kg/min .Q24H PRN 0 mls/hr TITRATE PER MD ORDER Titration Protocol 5 MCG/KG/MIN Micafungin Sodium 100 mg/ 100 mls @ 100 mls/hr 11/01/16 17:30 11/05/16 16:52 Sodium Chloride IV 100 mls/hr Q24H MIRA Administration Meropenem 500 mg/ Sodium 100 mls @ 100 mls/hr 11/01/16 17:45 11/05/16 17:46 Chloride IVPB 100 mls/hr Q12H MIRA Administration Dexmedetomidine HCl 200 mcg/ 50 mls @ 4.46 mls/hr 11/03/16 08:09 11/05/16 06: 41 Sodium Chloride IV 0.5 mcg/kg/hr TITR PRN 11.15 mls/hr Agitation Administration Protocol 0.2 MCG/KG/HR Norepinephrine Bitartrate 4 mg 254 mls @ 15.24 mls/hr 11/03/16 10:47 21:37 / Dextrose IV 1 mcg/min .[id number] PRN 3.81 mls/hr TITRATE PER MD ORDER Titration Protocol 4 MCG/MIN Insulin Human Regular 0 unit 11/05/16 16:30 11/05/16 16:49 Novolin R SC 3 unit ACHS MIRA Administration Protocol Lactic Acid 0 gm 10/22/16 13:00 11/05/16 17:45 Lac-Hydrin 12% Lotion (225 G) EXT 1 applic BID MIRA Administration Methylprednisolone 40 mg 11/03/16 10:00 11/05/16 10:04 Solu-Medrol IV 40 mg DAILY MIRA Administration Midazolam HCl 2 mg 10/22/16 19:22 11/04/16 23:39 Versed Inj IVP 2 mg Q4H PRN Administration Agitation Multivitamins 1 tab 11/06/16 10:00 Hexavitamin PO DAILY MIRA Nystatin 1 applic 10/26/16 10:00 11/05/16 17:47 Nystop Topical Powder TOP 11/09/16 10:00 1 applic BID MIRA Administration Pantoprazole Sodium 40 mg 11/06/16 10:00 Protonix Ec Tab PO DAILY MIRA Sevelamer Carbonate 2.4 gm 11/01/16 12:00 11/05/16 16:51 Renvela NG 2.4 gm TIDCC MIRA Administration - Patient Studies Lab Studies: Microbiology Studies 11/01/16 17:29 Blood Culture - Preliminary Blood-Venous NO GROWTH AFTER 3 DAYS 11/01/16 17:29 Blood Culture - Preliminary Blood-Venous NO GROWTH AFTER 3 DAYS Lab Studies 11/05/16 11/05/16 11/05/16 Range/Units 16:07 11:51 06:57 WBC (4.8-10.8) K/uL RBC (4.40-5.90) Mil/uL Hgb (12.0-18.0) g/dL Hct (35.0-51.0) % MCV (80.0-94.0) fL MCH (27.0-31.0) pg MCHC (33.0-37.0) g/dL RDW (11.5-14.5) % Plt Count (130-400) K/uL MPV (7.2-11.7) fL Neut % (Auto) (50.0-75.0) % Lymph % (Auto) (20.0-40.0) % [place] % (Auto) (0.0-10.0) % Eos % (Auto) (0.0-4.0) % Baso % (Auto) (0.0-2.0) % Neut # (1.8-7.0) K/uL Lymph # (1.0-4.3) K/uL [place] # (0.0-0.8) K/uL Eos # (0.0-0.7) K/uL Baso # (0.0-0.2) K/uL Neutrophils % (Manual) (50-75) % Lymphocytes % (Manual) (20-40) % Monocytes % (Manual) (0-10) % Platelet Estimate (NORMAL) Large Platelets Giant Platelets Hypochromasia (manual) Poikilocytosis (manual Anisocytosis (manual) Target Cells Puncture Site pCO2 (35-45) mm/Hg pO2 (80-100) mm/Hg HCO3 (21-28) mmol/L ABG pH (7.35-7.45) ABG Total CO2 (22-28) mmol/L ABG O2 Saturation (95-98) % ABG Base Excess (-2.0-3.0) mmol/L ABG Hemoglobin (11.7-17.4) g/dL ABG Carboxyhemoglobin (0.5-1.5) % POC ABG HHb (Measured) (0.0-5.0) % ABG Methemoglobin (0.0-3.0) % Nicolas Test A-a O2 Difference mm/Hg Respiratory Index Hgb O2 Saturation (95.0-98.0) % FiO2 % Sodium (132-148) mmol/L Potassium (3.6-5.2) mmol/L Chloride (98-107) mmol/L Carbon Dioxide (22-30) mmol/L Anion Gap (10-20) BUN (9-20) mg/dL Creatinine (0.8-1.5) MG/DL Est GFR ( Amer) Est GFR (Non-Af Amer) POC Glucose (mg/dL) 256 H 210 H 101 (65-110) mg/dL Random Glucose (75-110) mg/dL Calcium (8.6-10.4) mg/dl Phosphorus (2.5-4.5) mg/dL Magnesium (1.6-2.3) mg/dL Total Bilirubin (0.2-1.3) mg/dL AST (17-59) U/L ALT (21-72) U/L Alkaline Phosphatase (38-126) U/L Total Protein (6.3-8.3) g/dL Albumin (3.5-5.0) g/dL Globulin (2.2-3.9) gm/dL Albumin/Globulin Ratio (1.0-2.1) 11/05/16 11/05/16 11/05/16 Range/Units 06:32 06:32 05:29 WBC 11.1 H (4.8-10.8) K/uL RBC 2.50 L (4.40-5.90) Mil/uL Hgb 8.2 L (12.0-18.0) g/dL Hct 24.6 L (35.0-51.0) % MCV 98.5 H (80.0-94.0) fL MCH 32.8 H (27.0-31.0) pg MCHC 33.3 (33.0-37.0) g/dL RDW 15.1 H (11.5-14.5) % Plt Count 106 L (130-400) K/uL MPV 10.6 (7.2-11.7) fL Neut % (Auto) 81.7 H (50.0-75.0) % Lymph % (Auto) 8.2 L (20.0-40.0) % [place] % (Auto) 6.6 (0.0-10.0) % Eos % (Auto) 2.9 (0.0-4.0) % Baso % (Auto) 0.6 (0.0-2.0) % Neut # 9.0 H (1.8-7.0) K/uL Lymph # 0.9 L (1.0-4.3) K/uL [place] # 0.7 (0.0-0.8) K/uL Eos # 0.3 (0.0-0.7) K/uL Baso # 0.1 (0.0-0.2) K/uL Neutrophils % (Manual) 85 H (50-75) % Lymphocytes % (Manual) 7 L (20-40) % Monocytes % (Manual) 8 (0-10) % Platelet Estimate Slightly decreased L (NORMAL) Large Platelets Present Giant Platelets Present Hypochromasia (manual) Moderate Poikilocytosis (manual Slight Anisocytosis (manual) Slight Target Cells Slight Puncture Site Rr pCO2 39 (35-45) mm/Hg pO2 50 L (80-100) mm/Hg HCO3 27.1 (21-28) mmol/L ABG pH 7.45 (7.35-7.45) ABG Total CO2 28.3 H (22-28) mmol/L ABG O2 Saturation 91.8 L (95-98) % ABG Base Excess 2.9 (-2.0-3.0) mmol/L ABG Hemoglobin 8.4 L (11.7-17.4) g/dL ABG Carboxyhemoglobin 2.8 H (0.5-1.5) % POC ABG HHb (Measured) 7.9 H (0.0-5.0) % ABG Methemoglobin 0.9 (0.0-3.0) % Nicolas Test Pos A-a O2 Difference 258.0 mm/Hg Respiratory Index 5.2 Hgb O2 Saturation 88.4 L (95.0-98.0) % FiO2 50.0 % Sodium 144 (132-148) mmol/L Potassium 4.1 (3.6-5.2) mmol/L Chloride 101 (98-107) mmol/L Carbon Dioxide 28 (22-30) mmol/L Anion Gap 20 (10-20) BUN 71 H (9-20) mg/dL Creatinine 3.3 H (0.8-1.5) MG/DL Est GFR ( Amer) 25 Est GFR (Non-Af Amer) 20 POC Glucose (mg/dL) (65-110) mg/dL Random Glucose 91 (75-110) mg/dL Calcium 7.2 L (8.6-10.4) mg/dl Phosphorus 7.1 H (2.5-4.5) mg/dL Magnesium 2.1 (1.6-2.3) mg/dL Total Bilirubin 2.3 H (0.2-1.3) mg/dL AST 45 (17-59) U/L ALT 64 (21-72) U/L Alkaline Phosphatase 104 (38-126) U/L Total Protein 6.3 (6.3-8.3) g/dL Albumin 2.8 L (3.5-5.0) g/dL Globulin 3.5 (2.2-3.9) gm/dL Albumin/Globulin Ratio 0.8 L (1.0-2.1) 11/04/16 Range/Units 23:54 WBC (4.8-10.8) K/uL RBC (4.40-5.90) Mil/uL Hgb (12.0-18.0) g/dL Hct (35.0-51.0) % MCV (80.0-94.0) fL MCH (27.0-31.0) pg MCHC (33.0-37.0) g/dL RDW (11.5-14.5) % Plt Count (130-400) K/uL MPV (7.2-11.7) fL Neut % (Auto) (50.0-75.0) % Lymph % (Auto) (20.0-40.0) % [place] % (Auto) (0.0-10.0) % Eos % (Auto) (0.0-4.0) % Baso % (Auto) (0.0-2.0) % Neut # (1.8-7.0) K/uL Lymph # (1.0-4.3) K/uL [place] # (0.0-0.8) K/uL Eos # (0.0-0.7) K/uL Baso # (0.0-0.2) K/uL Neutrophils % (Manual) (50-75) % Lymphocytes % (Manual) (20-40) % Monocytes % (Manual) (0-10) % Platelet Estimate (NORMAL) Large Platelets Giant Platelets Hypochromasia (manual) Poikilocytosis (manual Anisocytosis (manual) Target Cells Puncture Site pCO2 (35-45) mm/Hg pO2 (80-100) mm/Hg HCO3 (21-28) mmol/L ABG pH (7.35-7.45) ABG Total CO2 (22-28) mmol/L ABG O2 Saturation (95-98) % ABG Base Excess (-2.0-3.0) mmol/L ABG Hemoglobin (11.7-17.4) g/dL ABG Carboxyhemoglobin (0.5-1.5) % POC ABG HHb (Measured) (0.0-5.0) % ABG Methemoglobin (0.0-3.0) % Nicolas Test A-a O2 Difference mm/Hg Respiratory Index Hgb O2 Saturation (95.0-98.0) % FiO2 % Sodium (132-148) mmol/L Potassium (3.6-5.2) mmol/L Chloride (98-107) mmol/L Carbon Dioxide (22-30) mmol/L Anion Gap (10-20) BUN (9-20) mg/dL Creatinine (0.8-1.5) MG/DL Est GFR ( Amer) Est GFR (Non-Af Amer) POC Glucose (mg/dL) 119 H (65-110) mg/dL Random Glucose (75-110) mg/dL Calcium (8.6-10.4) mg/dl Phosphorus (2.5-4.5) mg/dL Magnesium (1.6-2.3) mg/dL Total Bilirubin (0.2-1.3) mg/dL AST (17-59) U/L ALT (21-72) U/L Alkaline Phosphatase (38-126) U/L Total Protein (6.3-8.3) g/dL Albumin (3.5-5.0) g/dL Globulin (2.2-3.9) gm/dL Albumin/Globulin Ratio (1.0-2.1) Laboratory Results - last 24 hr 11/04/16 11/05/16 11/05/16 23:54 05:29 06:32 WBC 11.1 H RBC 2.50 L Hgb 8.2 L Hct 24.6 L MCV 98.5 H MCH 32.8 H MCHC 33.3 RDW 15.1 H Plt Count 106 L MPV 10.6 Neut % (Auto) 81.7 H Lymph % (Auto) 8.2 L [place] % (Auto) 6.6 Eos % (Auto) 2.9 Baso % (Auto) 0.6 Neut # 9.0 H Lymph # 0.9 L [place] # 0.7 Eos # 0.3 Baso # 0.1 Neutrophils % (Manual) 85 H Lymphocytes % (Manual) 7 L Monocytes % (Manual) 8 Platelet Estimate Slightly decreased L Large Platelets Present Giant Platelets Present Hypochromasia (manual) Moderate Poikilocytosis (manual Slight Anisocytosis (manual) Slight Target Cells Slight Puncture Site Rr pCO2 39 pO2 50 L HCO3 27.1 ABG pH 7.45 ABG Total CO2 28.3 H ABG O2 Saturation 91.8 L ABG Base Excess 2.9 ABG Hemoglobin 8.4 L ABG Carboxyhemoglobin 2.8 H POC ABG HHb (Measured) 7.9 H ABG Methemoglobin 0.9 Nicolas Test Pos A-a O2 Difference 258.0 Respiratory Index 5.2 Hgb O2 Saturation 88.4 L FiO2 50.0 Sodium Potassium Chloride Carbon Dioxide Anion Gap BUN Creatinine Est GFR ( Amer) Est GFR (Non-Af Amer) POC Glucose (mg/dL) 119 H Random Glucose Calcium Phosphorus Magnesium Total Bilirubin AST ALT Alkaline Phosphatase Total Protein Albumin Globulin Albumin/Globulin Ratio 11/05/16 11/05/16 11/05/16 06:32 06:57 11:51 WBC RBC Hgb Hct MCV MCH MCHC RDW Plt Count MPV Neut % (Auto) Lymph % (Auto) [place] % (Auto) Eos % (Auto) Baso % (Auto) Neut # Lymph # [place] # Eos # Baso # Neutrophils % (Manual) Lymphocytes % (Manual) Monocytes % (Manual) Platelet Estimate Large Platelets Giant Platelets Hypochromasia (manual) Poikilocytosis (manual Anisocytosis (manual) Target Cells Puncture Site pCO2 pO2 HCO3 ABG pH ABG Total CO2 ABG O2 Saturation ABG Base Excess ABG Hemoglobin ABG Carboxyhemoglobin POC ABG HHb (Measured) ABG Methemoglobin Nicolas Test A-a O2 Difference Respiratory Index Hgb O2 Saturation FiO2 Sodium 144 Potassium 4.1 Chloride 101 Carbon Dioxide 28 Anion Gap 20 BUN 71 H Creatinine 3.3 H Est GFR ( Amer) 25 Est GFR (Non-Af Amer) 20 POC Glucose (mg/dL) 101 210 H Random Glucose 91 Calcium 7.2 L Phosphorus 7.1 H Magnesium 2.1 Total Bilirubin 2.3 H AST 45 ALT 64 Alkaline Phosphatase 104 Total Protein 6.3 Albumin 2.8 L Globulin 3.5 Albumin/Globulin Ratio 0.8 L 11/05/16 16:07 WBC RBC Hgb Hct MCV MCH MCHC RDW Plt Count MPV Neut % (Auto) Lymph % (Auto) [place] % (Auto) Eos % (Auto) Baso % (Auto) Neut # Lymph # [place] # Eos # Baso # Neutrophils % (Manual) Lymphocytes % (Manual) Monocytes % (Manual) Platelet Estimate Large Platelets Giant Platelets Hypochromasia (manual) Poikilocytosis (manual Anisocytosis (manual) Target Cells Puncture Site pCO2 pO2 HCO3 ABG pH ABG Total CO2 ABG O2 Saturation ABG Base Excess ABG Hemoglobin ABG Carboxyhemoglobin POC ABG HHb (Measured) ABG Methemoglobin Nicolas Test A-a O2 Difference Respiratory Index Hgb O2 Saturation FiO2 Sodium Potassium Chloride Carbon Dioxide Anion Gap BUN Creatinine Est GFR ( Amer) Est GFR (Non-Af Amer) POC Glucose (mg/dL) 256 H Random Glucose Calcium Phosphorus Magnesium Total Bilirubin AST ALT Alkaline Phosphatase Total Protein Albumin Globulin Albumin/Globulin Ratio Critical Care Progress Note - Nutrition Nutrition: Nutrition Category Date Time Status Consistent Carbohydrate [DIET] Diets 11/05/16 Breakfast Active Attending/Attestation - Attestation I have personally seen and examined this patient.: Yes I have fully participated in the care of the patient.: Yes I have reviewed all pertinent clinical information: Yes Notes (Text): 11/05/16 18:04 I have seen and examined the patient. Medical records, lab studies, and imaging were reviewed by me and a management plan was formulated on multidisciplinary rounds with resident Dr. Luna. I agree with their above documented assessment and plan. Pneumothorax became worse while chest tube on water seal. Will have to consult thoracic for possible bronchopleural fistula. Patient will need roasterman antibiotics, for 4 months with strep bacteremia. Finishing on 11/23/[address]. [address] PICC line. Critical Care Time 35 minutes. Multi-disciplinary rounds were performed with house staff, nursing, speech therapy, respiratory therapy, pharmacy and nutrition with integrated input from the primary team/attending and other consulting services. The documented time is cumulative and includes review of patient data/exams/labs/chart review and examination of the patient on rounds and throughout the day; time is exclusive of any procedures or teaching time.
[2016-11-05] MEDS: Ferric Sodium Gluconat Complex 62.5 mg/5 ml Vial IVPB SCH (10:01)
[2016-11-05] MEDS: Multiple Vitamins Oral Solution PO SCH (10:03)
[2016-11-05] MEDS: Ammonium Lactate 12% Lotion (225 g) EXT SCH ×2 (10:03→17:45)
[2016-11-05] MEDS: MethylPREDNISolone 40 mg Vial IV SCH (10:04)
--- NOTE | 2016-11-05 11:02 | CP.PCM.PN ---
Subjective - Date & Time of Evaluation Date of Evaluation: 11/05/16 Time of Evaluation: 10:45 - Subjective Subjective: Extubated Sitting up in chair, Alert & oriented Objective - Vital Signs/Intake and Output Vital Signs (last 24 hours): Temp Pulse Resp BP Pulse Ox 97.6 F 75 13 90/53 L 89 L 11/05/16 08:00 11/05/16 08:47 11/04/16 19:07 11/05/16 08:47 11/05/16 08:47 Intake and Output: 11/05/16 11/05/16 06:59 18:59 Intake Total 901.7 18.3 Output Total 730 80 Balance 171.7 -61.7 - Medications Medications: Current Medications Acetaminophen (Tylenol 650mg/20.3ml Solution Ud) 650 mg PO Q6 PRN PRN Reason: Temperature Last Admin: 11/02/16 23:46 Dose: 650 mg Albumin Human (Albumin Human 25% (12.5 Gm/50 Ml)) 12.5 gm IV Q8H [facility] Last Admin: 10/27/16 12:01 Dose: Not Given Albuterol Sulfate (Albuterol 0.083% Inhal Nikky (2.5 Mg/3 Ml) Ud) 2.5 mg INH RQ6 [facility] Last Admin: 11/05/16 07:30 Dose: 2.5 mg Epoetin Humphrey (Procrit) 10,000 unit IV [facility] [place] Last Admin: 11/04/16 16:39 Dose: 10,000 unit Ferric Sodium Gluconate Complex (Ferrlecit) 125 mg IVPB DAILY [facility] Stop: 11/10/16 10:13 Last Admin: 11/05/16 10:01 Dose: 125 mg Heparin Sodium (Porcine) (Heparin) 3,700 units IVP [facility] [place] Last Admin: 11/04/16 16:38 Dose: 3,700 units Propofol (Diprivan) 1,000 mg in 100 mls @ 2.775 mls/hr IV .Q24H PRN; Protocol; 5 MCG/KG/MIN PRN Reason: TITRATE PER MD ORDER Last Titration: 11/04/16 08:30 Dose: 0 mcg/kg/min, 0 mls/hr Micafungin Sodium 100 mg/ (Sodium Chloride) 100 mls @ 100 mls/hr IV Q24H [facility] Last Admin: 11/04/16 19:30 Dose: 100 mls/hr Meropenem 500 mg/ Sodium (Chloride) 100 mls @ 100 mls/hr IVPB Q12H [facility] Last Admin: 11/05/16 06:00 Dose: 100 mls/hr Dexmedetomidine HCl 200 mcg/ (Sodium Chloride) 50 mls @ 4.46 mls/hr IV TITR PRN ; Protocol; 0.2 MCG/KG/HR PRN Reason: Agitation Last Admin: 11/05/16 06:41 Dose: 0.5 mcg/kg/hr, 11.15 mls/hr Norepinephrine Bitartrate 4 mg (/ Dextrose) 254 mls @ 15.24 mls/hr IV .[id number] PRN; Protocol; 4 MCG/MIN PRN Reason: TITRATE PER MD ORDER Last Titration: 11/04/16 21:37 Dose: 1 mcg/min, 3.81 mls/hr Insulin Human Regular (Novolin R) 0 unit SC Q6 [facility] PRN Reason: Protocol Last Admin: 11/05/16 07:02 Dose: Not Given Lactic Acid (Lac-Hydrin 12% Lotion (225 G)) 0 gm EXT BID [facility] Last Admin: 11/05/16 10:03 Dose: 1 applic Methylprednisolone (Solu-Medrol) 40 mg IV DAILY [facility] Last Admin: 11/05/16 10:04 Dose: 40 mg Midazolam HCl (Versed Inj) 2 mg IVP Q4H PRN PRN Reason: Agitation Last Admin: 11/04/16 23:39 Dose: 2 mg Multivitamins/Vitamin C (Multi-Delyn Liquid) 5 ml PO DAILY [facility] Last Admin: 11/05/16 10:03 Dose: 5 ml Nystatin (Nystop Topical Powder) 1 applic TOP BID [facility] Stop: 11/09/16 10:00 Last Admin: 11/05/16 10:03 Dose: 1 applic Pantoprazole Sodium (Protonix Inj) 40 mg IVP DAILY [facility] Last Admin: 11/05/16 10:02 Dose: 40 mg Sevelamer Carbonate (Renvela) 2.4 gm NG TIDCC [facility] Last Admin: 11/05/16 08:22 Dose: 2.4 gm - Labs Labs: 11/05/16 06:32 11/05/16 06:32 PT 17.7 SECONDS (9.7-12.2) H 10/29/16 06:22 INR 1.6 10/29/16 06:22 APTT 30 SECONDS (21-34) 10/29/16 06:22 - Respiratory Exam Additional comments: Lungs clear - Cardiovascular Exam Cardiovascular Exam: REGULAR RHYTHM - GI/Abdominal Exam GI & Abdominal Exam: Soft - Extremities Exam Additional comments: No edema or cyanosis Assessment and Plan - Assessment and Plan (Free Text) Assessment: RUPALI on HD UO has improved. BUN/Crest also better. Will reevaluate for dialysis tomorrow Pneumonis Alcohol withdrawal, liver cirrhosis Anemia Plan: Monitor renal function ? recovery phase of ATN Monitor BP
--- NOTE | 2016-11-05 12:28 | RAD ---
HISTORY: pneumothorax COMPARISON: Chest x-ray performed 11/04/16 TECHNIQUE: Chest, one view. FINDINGS: Examination limited by habitus, hypoinflation, and patient obliquity. Right-sided dialysis catheter extends to the proximal right atrium. Right-sided IJ approach central venous catheter extends the SVC. Interval removal of the endotracheal tube and nasogastric tube. LUNGS: Subtle right upper lobe infiltrate. Bibasilar atelectasis. Please note that chest x-ray has limited sensitivity for the detection of pulmonary masses. PLEURA: No significant pleural effusion identified. Interval increase in size of left-sided pneumothorax measuring approximately 3.4 cm maximum dimension from pleural edge. CARDIOVASCULAR: Mild cardiomegaly. Ectatic aorta. OSSEOUS STRUCTURES: Degenerative changes. VISUALIZED UPPER ABDOMEN: Unremarkable. OTHER FINDINGS: None. IMPRESSION: Support lines and tubes as above. Interval increase in size of left-sided pneumothorax measuring approximately 3.4 cm in maximum dimension from pleural edge. Subtle right upper lobe infiltrate. Bibasilar atelectasis.
[2016-11-05] MEDS: Micafungin 100 MG in Sodium Chloride 0.9% 100 ML IV SCH (16:52)
--- NOTE | 2016-11-05 21:35 | CP.PCM.PN ---
Subjective - Date & Time of Evaluation Date of Evaluation: 11/05/16 Time of Evaluation: 13:00 - Subjective Subjective: Patient seen and examined in ICU. Patient is status post extubation. Patient stated that he is feeling better Objective - Vital Signs/Intake and Output Vital Signs (last 24 hours): Temp Pulse Resp BP Pulse Ox 98.9 F 84 17 108/65 93 L 11/05/16 20:00 11/05/16 21:07 11/05/16 21:07 11/05/16 21:07 11/05/16 21:07 Intake and Output: 11/05/16 11/06/16 18:59 06:59 Intake Total 878.3 Output Total 340 Balance 538.3 - Medications Medications: Current Medications Acetaminophen (Tylenol 650mg/20.3ml Solution Ud) 650 mg PO Q6 PRN PRN Reason: Temperature Last Admin: 11/02/16 23:46 Dose: 650 mg Albumin Human (Albumin Human 25% (12.5 Gm/50 Ml)) 12.5 gm IV Q8H [facility] Last Admin: 10/27/16 12:01 Dose: Not Given Albuterol Sulfate (Albuterol 0.083% Inhal Nikky (2.5 Mg/3 Ml) Ud) 2.5 mg INH RQ6 [facility] Last Admin: 11/05/16 19:21 Dose: 2.5 mg Epoetin Humphrey (Procrit) 10,000 unit IV [facility] [place] Last Admin: 11/04/16 16:39 Dose: 10,000 unit Ferric Sodium Gluconate Complex (Ferrlecit) 125 mg IVPB DAILY [facility] Stop: 11/10/16 10:13 Last Admin: 11/05/16 10:01 Dose: 125 mg Heparin Sodium (Porcine) (Heparin) 3,700 units IVP [facility] [place] Last Admin: 11/04/16 16:38 Dose: 3,700 units Propofol (Diprivan) 1,000 mg in 100 mls @ 2.775 mls/hr IV .Q24H PRN; Protocol; 5 MCG/KG/MIN PRN Reason: TITRATE PER MD ORDER Last Titration: 11/04/16 08:30 Dose: 0 mcg/kg/min, 0 mls/hr Micafungin Sodium 100 mg/ (Sodium Chloride) 100 mls @ 100 mls/hr IV Q24H [facility] Last Admin: 11/05/16 16:52 Dose: 100 mls/hr Meropenem 500 mg/ Sodium (Chloride) 100 mls @ 100 mls/hr IVPB Q12H [facility] Last Admin: 11/05/16 17:46 Dose: 100 mls/hr Dexmedetomidine HCl 200 mcg/ (Sodium Chloride) 50 mls @ 4.46 mls/hr IV TITR PRN ; Protocol; 0.2 MCG/KG/HR PRN Reason: Agitation Last Admin: 11/05/16 06:41 Dose: 0.5 mcg/kg/hr, 11.15 mls/hr Norepinephrine Bitartrate 4 mg (/ Dextrose) 254 mls @ 15.24 mls/hr IV .[id number] PRN; Protocol; 4 MCG/MIN PRN Reason: TITRATE PER MD ORDER Last Titration: 11/04/16 21:37 Dose: 1 mcg/min, 3.81 mls/hr Insulin Human Regular (Novolin R) 0 unit SC ACHS [facility] PRN Reason: Protocol Last Admin: 11/05/16 16:49 Dose: 3 unit Lactic Acid (Lac-Hydrin 12% Lotion (225 G)) 0 gm EXT BID [facility] Last Admin: 11/05/16 17:45 Dose: 1 applic Methylprednisolone (Solu-Medrol) 40 mg IV DAILY [facility] Last Admin: 11/05/16 10:04 Dose: 40 mg Midazolam HCl (Versed Inj) 2 mg IVP Q4H PRN PRN Reason: Agitation Last Admin: 11/04/16 23:39 Dose: 2 mg Multivitamins (Hexavitamin) 1 tab PO DAILY [facility] Nystatin (Nystop Topical Powder) 1 applic TOP BID [facility] Stop: 11/09/16 10:00 Last Admin: 11/05/16 17:47 Dose: 1 applic Pantoprazole Sodium (Protonix Ec Tab) 40 mg PO DAILY [facility] Sevelamer Carbonate (Renvela) 2.4 gm NG TIDCC [facility] Last Admin: 11/05/16 16:51 Dose: 2.4 gm - Labs Labs: 11/05/16 06:32 11/05/16 06:32 PT 17.7 SECONDS (9.7-12.2) H 10/29/16 06:22 INR 1.6 10/29/16 06:22 APTT 30 SECONDS (21-34) 10/29/16 06:22 - Head Exam Head Exam: ATRAUMATIC, NORMOCEPHALIC - Eye Exam Eye Exam: PERRL Pupil Exam: NORMAL ACCOMODATION - ENT Exam ENT Exam: Mucous Membranes Moist - Neck Exam Neck Exam: Normal Inspection - Respiratory Exam Respiratory Exam: Clear to Ausculation Bilateral Additional comments: Left sided chest tube present - Cardiovascular Exam Cardiovascular Exam: REGULAR RHYTHM, +S1, +S2 - Neurological Exam Neurological Exam: Alert, Awake, Oriented x3 Assessment and Plan (1) Alcohol withdrawal Status: Acute (2) Hypoxemia Status: Acute (3) Pneumonia Status: Acute (4) Respiratory distress Status: Acute (5) Seizure disorder Status: Acute (6) Sepsis Status: Acute (7) Thrombocythemia Status: Chronic (8) Psoriasis Status: Acute (9) Renal failure Status: Acute (10) Spontaneous pneumothorax Status: Acute - Assessment and Plan (Free Text) Plan: Continue management as per ICU team. Patient is on IV antibiotics for pneumonia Maintenance of for chest tube as per ICU team Discussed the plan of care with the ICU team and agree with the plan
[2016-11-06] MEDS: (Novolin R) Insulin Human Regular 100 units/ml vial SC SCH ×5 (01:33→22:00)
[2016-11-06] MEDS: Albuterol 0.083% Inhal Sol (2.5 mg/3 mL) UD INH SCH ×4 (02:46→19:40)
[2016-11-06] MEDS: Meropenem 500 MG in Sodium Chloride 0.9% 100 ML IVPB SCH ×2 (05:17→17:50)
[2016-11-06 06:37] LABS: BASO # 0.1 K/uL (0.0-0.2); BASO % 0.4 % (0.0-2.0); EOS # 0.3 K/uL (0.0-0.7); EOS % 2.2 % (0.0-4.0); HEMATOCRIT 24.3 % (35.0-51.0); LYMPH # 1.1 K/uL (1.0-4.3); LYMPH % 8.4 % (20.0-40.0); MEAN CORPUSCULAR HGB CONC 32.7 g/dL (33.0-37.0); MEAN PLATELET VOLUME 11.1 fL (7.2-11.7); MONO # 0.9 K/uL (0.0-0.8); MONO % 7.2 % (0.0-10.0); PLATELET COUNT 105 K/uL (130-400); RED CELL DISTRIBUTION WIDTH 14.9 % (11.5-14.5); WHITE BLOOD COUNT 12.7 K/uL (4.8-10.8)
[2016-11-06 06:48] LABS: ALB/GLOB RATIO 0.8 (1.0-2.1); BILIRUBIN,TOTAL 2.1 mg/dL (0.2-1.3); MAGNESIUM 2.1 mg/dL (1.6-2.3); PHOSPHOROUS 5.3 mg/dL (2.5-4.5); POTASSIUM 3.8 mmol/L (3.6-5.2)
[2016-11-06 08:49] LABS: EOSINOPHIL 2 % (0-4); NEUTROPHIL 80 % (50-75); TOTAL CELLS COUNTED 100
[2016-11-06] MEDS: Multiple Vitamins Tab PO SCH (09:15)
[2016-11-06] MEDS: Pantoprazole 40 mg EC Tab PO SCH (09:15)
[2016-11-06] MEDS: Ferric Sodium Gluconat Complex 62.5 mg/5 ml Vial IVPB SCH (09:15)
[2016-11-06] MEDS: MethylPREDNISolone 40 mg Vial IV SCH (09:15)
--- NOTE | 2016-11-06 11:08 | CP.PCM.PN ---
Subjective - Date & Time of Evaluation Date of Evaluation: 11/06/16 Time of Evaluation: 10:30 - Subjective Subjective: No SOB Remains A&O Objective - Vital Signs/Intake and Output Vital Signs (last 24 hours): Temp Pulse Resp BP Pulse Ox 98.2 F 84 15 114/64 94 L 11/06/16 04:00 11/06/16 10:00 11/06/16 10:00 11/06/16 07:56 11/06/16 10:00 Intake and Output: 11/06/16 11/06/16 06:59 18:59 Intake Total 600 550 Output Total 630 300 Balance -30 250 - Medications Medications: Current Medications Acetaminophen (Tylenol 650mg/20.3ml Solution Ud) 650 mg PO Q6 PRN PRN Reason: Temperature Last Admin: 11/02/16 23:46 Dose: 650 mg Albumin Human (Albumin Human 25% (12.5 Gm/50 Ml)) 12.5 gm IV Q8H [facility] Last Admin: 10/27/16 12:01 Dose: Not Given Albuterol Sulfate (Albuterol 0.083% Inhal Nikky (2.5 Mg/3 Ml) Ud) 2.5 mg INH RQ6 [facility] Last Admin: 11/06/16 07:39 Dose: 2.5 mg Epoetin Humphrey (Procrit) 10,000 unit IV MWF [facility] Last Admin: 11/04/16 16:39 Dose: 10,000 unit Ferric Sodium Gluconate Complex (Ferrlecit) 125 mg IVPB DAILY [facility] Stop: 11/10/16 10:13 Last Admin: 11/06/16 09:15 Dose: 125 mg Heparin Sodium (Porcine) (Heparin) 3,700 units IVP MWF [facility] Last Admin: 11/04/16 16:38 Dose: 3,700 units Micafungin Sodium 100 mg/ (Sodium Chloride) 100 mls @ 100 mls/hr IV Q24H [facility] Last Admin: 11/05/16 16:52 Dose: 100 mls/hr Meropenem 500 mg/ Sodium (Chloride) 100 mls @ 100 mls/hr IVPB Q12H [facility] Last Admin: 11/06/16 05:17 Dose: 100 mls/hr Insulin Human Regular (Novolin R) 0 unit SC ACHS [facility] PRN Reason: Protocol Last Admin: 08/04/17 07:30 Dose: Not Given Lactic Acid (Lac-Hydrin 12% Lotion (225 G)) 0 gm EXT BID [facility] Last Admin: 11/05/16 17:45 Dose: 1 applic Methylprednisolone (Solu-Medrol) 40 mg IV DAILY [facility] Last Admin: 11/06/16 09:15 Dose: 40 mg Multivitamins (Hexavitamin) 1 tab PO DAILY [facility] Last Admin: 11/06/16 09:15 Dose: 1 tab Pantoprazole Sodium (Protonix Ec Tab) 40 mg PO DAILY [facility] Last Admin: 11/06/16 09:15 Dose: 40 mg Sevelamer Carbonate (Renvela) 800 mg PO TIDCC [facility] - Labs Labs: 11/06/16 06:19 11/06/16 06:17 PT 17.7 SECONDS (9.7-12.2) H 10/29/16 06:22 INR 1.6 10/29/16 06:22 APTT 30 SECONDS (21-34) 10/29/16 06:22 - Respiratory Exam Additional comments: Lungs clear - Cardiovascular Exam Cardiovascular Exam: REGULAR RHYTHM - Extremities Exam Additional comments: No edema Assessment and Plan - Assessment and Plan (Free Text) Assessment: RUPALI on HD Pneumonia Alcoholism, liver cirrhosis Plan: Labs reviewed BUN/ Creat remain high Will order dialysis today & continue to monitor renal function
[2016-11-06] MEDS: Ammonium Lactate 12% Lotion (225 g) EXT SCH ×2 (11:46→18:48)
--- NOTE | 2016-11-06 14:53 | RAD ---
HISTORY: pneumothorax COMPARISON: Prior chest 11/05/2016. FINDINGS: LUNGS: Right hemidiaphragm elevation is again appreciated were stable placement of a permanent right dialysis catheter. Cardiac size stable. Prior left [place] pneumothorax has resolved. Limited atelectasis or infiltrate at the left base is identified with none on the right. Trace of pleural effusion is in question. No seen the right. Trachea is midline. Cardiac size stable. No pulmonary vascular derangement. PLEURA: Discussed above CARDIOVASCULAR: Discussed above OSSEOUS STRUCTURES: No significant abnormalities. VISUALIZED UPPER ABDOMEN: Normal. OTHER FINDINGS: None. IMPRESSION: Resolution of prior left pneumothorax with limited left basilar atelectasis or infiltrate appreciate this time and trace pleural effusions suspected. Permanent dialysis catheter unchanged in position.
--- NOTE | 2016-11-06 15:26 | CP.PCM.PN ---
Subjective - Date & Time of Evaluation Date of Evaluation: 11/06/16 Time of Evaluation: 13:00 - Subjective Subjective: Patient was seen and examined in ICU. Appears comfortable. Chest tube is in place. Patient denies any pain. Denies any shortness of breath. Patient complains that he is feeling very weak. Objective - Vital Signs/Intake and Output Vital Signs (last 24 hours): Temp Pulse Resp BP Pulse Ox 98.7 F 86 30 H 129/85 92 L 11/06/16 12:00 11/06/16 13:00 11/06/16 13:00 11/06/16 12:57 11/06/16 13:00 Intake and Output: 11/06/16 11/06/16 06:59 18:59 Intake Total 600 1010 Output Total 630 300 Balance -30 710 - Medications Medications: Current Medications Acetaminophen (Tylenol 650mg/20.3ml Solution Ud) 650 mg PO Q6 PRN PRN Reason: Temperature Last Admin: 11/02/16 23:46 Dose: 650 mg Albumin Human (Albumin Human 25% (12.5 Gm/50 Ml)) 12.5 gm IV Q8H [facility] Last Admin: 10/27/16 12:01 Dose: Not Given Albuterol Sulfate (Albuterol 0.083% Inhal Nikky (2.5 Mg/3 Ml) Ud) 2.5 mg INH RQ6 [facility] Last Admin: 11/06/16 13:21 Dose: 2.5 mg Epoetin Humphrey (Procrit) 10,000 unit IV [facility] [place] Last Admin: 11/04/16 16:39 Dose: 10,000 unit Ferric Sodium Gluconate Complex (Ferrlecit) 125 mg IVPB DAILY [facility] Stop: 11/10/16 10:13 Last Admin: 11/06/16 09:15 Dose: 125 mg Heparin Sodium (Porcine) (Heparin) 3,700 units IVP MWF [facility] Last Admin: 11/04/16 16:38 Dose: 3,700 units Micafungin Sodium 100 mg/ (Sodium Chloride) 100 mls @ 100 mls/hr IV Q24H [facility] Last Admin: 11/05/16 16:52 Dose: 100 mls/hr Meropenem 500 mg/ Sodium (Chloride) 100 mls @ 100 mls/hr IVPB Q12H [facility] Last Admin: 11/06/16 05:17 Dose: 100 mls/hr Insulin Human Regular (Novolin R) 0 unit SC ACHS [facility] PRN Reason: Protocol Last Admin: 11/06/16 12:45 Dose: 1 unit Lactic Acid (Lac-Hydrin 12% Lotion (225 G)) 0 gm EXT BID [facility] Last Admin: 11/06/16 11:46 Dose: 1 applic Multivitamins (Hexavitamin) 1 tab PO DAILY [facility] Last Admin: 11/06/16 09:15 Dose: 1 tab Pantoprazole Sodium (Protonix Ec Tab) 40 mg PO DAILY [facility] Last Admin: 11/06/16 09:15 Dose: 40 mg Sevelamer Carbonate (Renvela) 800 mg PO TIDCC [facility] Last Admin: 11/06/16 12:48 Dose: 800 mg - Labs Labs: 11/06/16 06:19 11/06/16 06:17 PT 17.7 SECONDS (9.7-12.2) H 10/29/16 06:22 INR 1.6 10/29/16 06:22 APTT 30 SECONDS (21-34) 10/29/16 06:22 - Head Exam Head Exam: ATRAUMATIC, NORMOCEPHALIC - Eye Exam Eye Exam: PERRL Pupil Exam: NORMAL ACCOMODATION - ENT Exam ENT Exam: Mucous Membranes Moist - Respiratory Exam Respiratory Exam: Clear to Ausculation Bilateral Additional comments: Left sided chest tube present. - Cardiovascular Exam Cardiovascular Exam: REGULAR RHYTHM, +S1, +S2 - GI/Abdominal Exam GI & Abdominal Exam: Soft. absent: Tenderness - Extremities Exam Extremities Exam: absent: Pedal Edema Assessment and Plan (1) Alcohol withdrawal Status: Acute (2) Hypoxemia Status: Acute (3) Pneumonia Status: Acute (4) Respiratory distress Status: Acute (5) Seizure disorder Status: Acute (6) Sepsis Status: Acute (7) Thrombocythemia Status: Chronic (8) Psoriasis Status: Acute (9) Renal failure Status: Acute (10) Spontaneous pneumothorax Status: Acute - Assessment and Plan (Free Text) Plan: Status post intubation. Patient is now extubated and is pretty status is stable. Patient has a left-sided chest tube because of for pneumothorax. Chest tube removed today as per ICU team. Patient is on IV antibiotics for pneumonia/sepsis Encourage the patient to be out of bed. Discussed the plan of care with the ICU team.
--- NOTE | 2016-11-06 16:05 | RAD ---
HISTORY: verify left PICC COMPARISON: Portable chest 11/06/2016 11:32 a.m. FINDINGS: LUNGS: Limited patchy atelectasis or infiltrate is again seen the mid to inferior left lung zone and is borderline in the right infrahilar space appear right hemidiaphragm remains elevated. PLEURA: No definite pleural effusion bilaterally. No pneumothorax. CARDIOVASCULAR: Stable in the interval. OSSEOUS STRUCTURES: No significant abnormalities. VISUALIZED UPPER ABDOMEN: Left upper extremity PICC catheter is now insert occurring at the superior vena cava OTHER FINDINGS: Dialysis catheter unchanged in position. The right internal jugular catheter has been placed and is unchanged in position terminating at the superior vena cava once again. IMPRESSION: Stable limited infiltrate or atelectasis in the medial left base with prior question left pleural effusion resolved. An interval left upper extremity PICC catheter has been inserted as discussed above.
[2016-11-06] MEDS: Micafungin 100 MG in Sodium Chloride 0.9% 100 ML IV SCH (16:43)
--- NOTE | 2016-11-06 16:47 | CP.CCUPN ---
<Juan JoseDave beri DemiJunito - Last Filed: 11/06/16 18:32> CCU Subjective - Physician Review Subjective (Free Text): Patient was seen and examined at bedside in the morning. Patient is alert and oriented x3. Patient reports he is feeling a little weak and sometimes has a chest pain, but otherwise has no complaints. Patient denies shortness of breath , abdominal pain, nausea, vomiting, diarrhea, constipation, fevers, and headaches. 11/06/16 18:32 CCU Objective - Vital Signs / Intake & Output Vital Signs (Last 4 hours): Vital Signs Temp Pulse Resp BP Pulse Ox 11/06/16 16:00 97.9 F 82 17 93 L 11/06/16 15:56 81 17 127/76 91 L 11/06/16 15:00 81 13 92 L 11/06/16 14:56 82 18 119/73 90 L 11/06/16 14:00 83 17 90 L 11/06/16 13:56 81 13 101/58 L 11/06/16 13:00 86 30 H 92 L 11/06/16 12:57 90 19 129/85 97 Intake and Output (Last 8hrs): Intake & Output 11/06/16 11/06/16 11/06/16 06:59 14:59 22:59 Intake Total 350 1010 Output Total 480 300 400 Balance -130 710 -400 Weight 190 lb 3.2 oz 190 lb Intake: Intake, IV Amount 100 100 Right jugular TLC distal 100 100 port Oral 250 910 Output: Chest Tube Drainage 30 Left Mid-Axillary Chest 30 Urine 450 300 400 Urethral (Walters) 450 300 400 Stool 0 Emesis 0 Other: # Voids Urethral (Walters) 1 - Physical Exam Head: Positive for: Atraumatic, Normocephalic Extroacular Muscles: Positive for: EOMI Mouth: Positive for: Moist Mucous Membranes Respiratory/Chest: Positive for: Wheezes, Decreased Breath Sounds, Rhonchi Cardiovascular: Positive for: Regular Rate and Rhythm, Normal S1, S2 Abdomen: Positive for: Distention, Normal Bowel Sounds Genitourinary Male: Positive for: Other (walters in place) Upper Extremity: Negative for: Edema Lower Extremity: Negative for: Edema Neurological: Positive for: Other (tremors) Skin: Positive for: Warm, Other (Psoriasis located on b/l knees, bilateral upper extremities) Psychiatric: Positive for: Alert (patient is sedated and intubated ), Oriented x 3 - Medications Active Medications: Active Medications Generic Name Dose Route Start Last Admin Trade Name Biju PRN Reason Stop Dose Admin Acetaminophen 650 mg 10/25/16 11:56 11/02/16 23:46 Tylenol 650mg/20.3ml Solution Ud PO 650 mg Q6 PRN Administration Temperature Albumin Human 12.5 gm 10/26/16 18:45 10/27/16 12:01 Albumin Human 25% (12.5 Gm/50 Ml) IV Not Given Q8H MIRA Albuterol Sulfate 2.5 mg 10/31/16 14:00 11/06/16 13:21 Albuterol 0.083% Inhal Nikky (2.5 Mg/3 Ml) Ud INH 2.5 mg RQ6 MIRA Administration Epoetin Humphrey 10,000 unit 11/02/16 14:45 11/04/16 16:39 Procrit IV 10,000 unit MWF MIRA Administration Ferric Sodium Gluconate Complex 125 mg 11/02/16 10:12 11/06/16 09:15 Ferrlecit IVPB 11/10/16 10:13 125 mg DAILY MIRA Administration Heparin Sodium (Porcine) 3,700 units 11/02/16 15:30 11/04/16 16:38 Heparin IVP 3,700 units MWF MIRA Administration Micafungin Sodium 100 mg/ 100 mls @ 100 mls/hr 11/01/16 17:30 11/06/16 16:43 Sodium Chloride IV 100 mls/hr Q24H MIRA Administration Meropenem 500 mg/ Sodium 100 mls @ 100 mls/hr 11/01/16 17:45 11/06/16 05:17 Chloride IVPB 100 mls/hr Q12H MIRA Administration Insulin Human Regular 0 unit 11/05/16 16:30 11/06/16 16:42 Novolin R SC 2 unit ACHS MIRA Administration Protocol Lactic Acid 0 gm 10/22/16 13:00 11/06/16 11:46 Lac-Hydrin 12% Lotion (225 G) EXT 1 applic BID MIRA Administration Multivitamins 1 tab 11/06/16 10:00 11/06/16 09:15 Hexavitamin PO 1 tab DAILY MIRA Administration Pantoprazole Sodium 40 mg 11/06/16 10:00 11/06/16 09:15 Protonix Ec Tab PO 40 mg DAILY MIRA Administration Sevelamer Carbonate 800 mg 11/06/16 12:00 11/06/16 16:42 Renvela PO 800 mg TIDCC MIRA Administration - Patient Studies Lab Studies: Microbiology Studies 11/01/16 17:29 Blood Culture - Preliminary Blood-Venous NO GROWTH AFTER 4 DAYS 11/01/16 17:29 Blood Culture - Preliminary Blood-Venous NO GROWTH AFTER 4 DAYS Lab Studies 11/06/16 11/06/16 11/06/16 Range/Units 15:59 12:25 08:18 WBC (4.8-10.8) K/uL RBC (4.40-5.90) Mil/uL Hgb (12.0-18.0) g/dL Hct (35.0-51.0) % MCV (80.0-94.0) fL MCH (27.0-31.0) pg MCHC (33.0-37.0) g/dL RDW (11.5-14.5) % Plt Count (130-400) K/uL MPV (7.2-11.7) fL Neut % (Auto) (50.0-75.0) % Lymph % (Auto) (20.0-40.0) % [place] % (Auto) (0.0-10.0) % Eos % (Auto) (0.0-4.0) % Baso % (Auto) (0.0-2.0) % Neut # (1.8-7.0) K/uL Lymph # (1.0-4.3) K/uL [place] # (0.0-0.8) K/uL Eos # (0.0-0.7) K/uL Baso # (0.0-0.2) K/uL Neutrophils % (Manual) (50-75) % Band Neutrophils % (0-2) % Lymphocytes % (Manual) (20-40) % Monocytes % (Manual) (0-10) % Eosinophils % (Manual) (0-4) % Platelet Estimate (NORMAL) Hypochromasia (manual) Poikilocytosis (manual Anisocytosis (manual) Sodium (132-148) mmol/L Potassium (3.6-5.2) mmol/L Chloride (98-107) mmol/L Carbon Dioxide (22-30) mmol/L Anion Gap (10-20) BUN (9-20) mg/dL Creatinine (0.8-1.5) MG/DL Est GFR ( Amer) Est GFR (Non-Af Amer) POC Glucose (mg/dL) 206 H 160 H 126 H (65-110) mg/dL Random Glucose (75-110) mg/dL Calcium (8.6-10.4) mg/dl Phosphorus (2.5-4.5) mg/dL Magnesium (1.6-2.3) mg/dL Total Bilirubin (0.2-1.3) mg/dL AST (17-59) U/L ALT (21-72) U/L Alkaline Phosphatase (38-126) U/L Total Protein (6.3-8.3) g/dL Albumin (3.5-5.0) g/dL Globulin (2.2-3.9) gm/dL Albumin/Globulin Ratio (1.0-2.1) 11/06/16 11/06/16 11/05/16 Range/Units 06:19 06:17 21:06 WBC 12.7 H (4.8-10.8) K/uL RBC 2.48 L (4.40-5.90) Mil/uL Hgb 8.0 L (12.0-18.0) g/dL Hct 24.3 L (35.0-51.0) % MCV 98.0 H (80.0-94.0) fL MCH 32.0 H (27.0-31.0) pg MCHC 32.7 L (33.0-37.0) g/dL RDW 14.9 H (11.5-14.5) % Plt Count 105 L (130-400) K/uL MPV 11.1 (7.2-11.7) fL Neut % (Auto) 81.8 H (50.0-75.0) % Lymph % (Auto) 8.4 L (20.0-40.0) % [place] % (Auto) 7.2 (0.0-10.0) % Eos % (Auto) 2.2 (0.0-4.0) % Baso % (Auto) 0.4 (0.0-2.0) % Neut # 10.4 H (1.8-7.0) K/uL Lymph # 1.1 (1.0-4.3) K/uL [place] # 0.9 H (0.0-0.8) K/uL Eos # 0.3 (0.0-0.7) K/uL Baso # 0.1 (0.0-0.2) K/uL Neutrophils % (Manual) 80 H (50-75) % Band Neutrophils % 2 (0-2) % Lymphocytes % (Manual) 8 L (20-40) % Monocytes % (Manual) 8 (0-10) % Eosinophils % (Manual) 2 (0-4) % Platelet Estimate Slightly decreased L (NORMAL) Hypochromasia (manual) Slight Poikilocytosis (manual Slight Anisocytosis (manual) Slight Sodium 143 (132-148) mmol/L Potassium 3.8 (3.6-5.2) mmol/L Chloride 101 (98-107) mmol/L Carbon Dioxide 25 (22-30) mmol/L Anion Gap 21 H (10-20) BUN 84 H (9-20) mg/dL Creatinine 3.8 H (0.8-1.5) MG/DL Est GFR ( Amer) 21 Est GFR (Non-Af Amer) 17 POC Glucose (mg/dL) 137 H (65-110) mg/dL Random Glucose 88 (75-110) mg/dL Calcium 7.0 L (8.6-10.4) mg/dl Phosphorus 5.3 H (2.5-4.5) mg/dL Magnesium 2.1 (1.6-2.3) mg/dL Total Bilirubin 2.1 H (0.2-1.3) mg/dL AST 62 H D (17-59) U/L ALT 72 (21-72) U/L Alkaline Phosphatase 133 H D (38-126) U/L Total Protein 6.0 L (6.3-8.3) g/dL Albumin 2.7 L (3.5-5.0) g/dL Globulin 3.3 (2.2-3.9) gm/dL Albumin/Globulin Ratio 0.8 L (1.0-2.1) Laboratory Results - last 24 hr 11/05/16 11/06/16 11/06/16 21:06 06:17 06:19 WBC 12.7 H RBC 2.48 L Hgb 8.0 L Hct 24.3 L MCV 98.0 H MCH 32.0 H MCHC 32.7 L RDW 14.9 H Plt Count 105 L MPV 11.1 Neut % (Auto) 81.8 H Lymph % (Auto) 8.4 L [place] % (Auto) 7.2 Eos % (Auto) 2.2 Baso % (Auto) 0.4 Neut # 10.4 H Lymph # 1.1 [place] # 0.9 H Eos # 0.3 Baso # 0.1 Neutrophils % (Manual) 80 H Band Neutrophils % 2 Lymphocytes % (Manual) 8 L Monocytes % (Manual) 8 Eosinophils % (Manual) 2 Platelet Estimate Slightly decreased L Hypochromasia (manual) Slight Poikilocytosis (manual Slight Anisocytosis (manual) Slight Sodium 143 Potassium 3.8 Chloride 101 Carbon Dioxide 25 Anion Gap 21 H BUN 84 H Creatinine 3.8 H Est GFR ( Amer) 21 Est GFR (Non-Af Amer) 17 POC Glucose (mg/dL) 137 H Random Glucose 88 Calcium 7.0 L Phosphorus 5.3 H Magnesium 2.1 Total Bilirubin 2.1 H AST 62 H D ALT 72 Alkaline Phosphatase 133 H D Total Protein 6.0 L Albumin 2.7 L Globulin 3.3 Albumin/Globulin Ratio 0.8 L 11/06/16 11/06/16 11/06/16 08:18 12:25 15:59 WBC RBC Hgb Hct MCV MCH MCHC RDW Plt Count MPV Neut % (Auto) Lymph % (Auto) [place] % (Auto) Eos % (Auto) Baso % (Auto) Neut # Lymph # [place] # Eos # Baso # Neutrophils % (Manual) Band Neutrophils % Lymphocytes % (Manual) Monocytes % (Manual) Eosinophils % (Manual) Platelet Estimate Hypochromasia (manual) Poikilocytosis (manual Anisocytosis (manual) Sodium Potassium Chloride Carbon Dioxide Anion Gap BUN Creatinine Est GFR ( Amer) Est GFR (Non-Af Amer) POC Glucose (mg/dL) 126 H 160 H 206 H Random Glucose Calcium Phosphorus Magnesium Total Bilirubin AST ALT Alkaline Phosphatase Total Protein Albumin Globulin Albumin/Globulin Ratio Fingerstick Blood Sugar Results: 206 Review of Systems - Constitutional Constitutional: Weakness. absent: Fever - Cardiovascular Cardiovascular: Chest Pain (occasional). absent: Dyspnea, Edema, Leg Edema, Palpitations - Respiratory Respiratory: absent: Cough, Dyspnea, Pain with Coughing - Gastrointestinal Gastrointestinal: absent: Abdominal Pain, Constipation, Diarrhea, Nausea, Vomiting - Genitourinary Genitourinary: absent: Dysuria - Neurological Neurological: Tremor Critical Care Progress Note - Nutrition Nutrition: Nutrition Category Date Time Status Consistent Carbohydrate [DIET] Diets 11/05/16 Breakfast Active Assessment/Plan - Assessment and Plan (Free Text) Assessment: 45 year old male with medical history of alcoholism, presents to the ED with complaint of worsening cough, abdominal pain for seven days. Patient's pneumothorax became worse with chest tube and waterseal. Restarted suction for a total of 3 days. Patient received a PICC line today for long-term antibiotics, a total of 4 weeks, finishing on 11/23/16. Neuro: - Alert and orientedx3 - Neurology Consult: Dr. Pineda --> help appreciated - Chronic alcohol abuse - No longer Sedated Pulm: - No longer Intubated--> Extubated on 11/04/16 - Hypoxic on vent secondary to ARDS - chest x-ray (10/29): Small left apical pneumothorax - pigtail catheter was inserted in the left lung by pulm Dr. Gomez --> help appreciated - keep pigtail catheter until extubation - Severe ARDS- improved - Trachasp/sputum cx: negative; normal oral trice - CXR 11/04: persistent right medial basilar opacity; probable subsegmental atelectasis at left base. - CXR 11/05: interval increase in size of left-sided pneumothorax measuring approximately 3.4 cm in maximum dimension from pleural edge. subtle right upper lobe infiltrate; bibasilar atelectasis - Chest tube with waterseal, suction restarted for a total of 3 days. CV: - PICC line placed - Hypotensive-- resolved - Occasional chest pain likely secondary to pneumothorax - Monitor Heme: - Thrombocytopenia - HIT AB: negative - Platelets 105 - Monitor Renal: - Removed Walters - Monitor - Dialysis started 10/23 - Permacath placement 10/30 - Vascular Surgery Consult: Dr. De La Vega --> help appreciated - Nephrology Consult: Dr. Merida --> help appreciated - Dialysis MWF - Dialyzed today Endo: - Monitor - No acute issues GI: - Swallow eval- passed - Carb consistent diet- started 11/05 - Diarrhea - Stool occult: negative - C. Diff: negative ID: - ID Consult: Dr. Bowers --> help appreciated - Sepsis due to Pneumonia - Blood culture: Strep Pneumoniae - As per Dr. Bowers, continue antibiotics for 4 weeks total; Last day to take antibiotics: 11/23/2016 - Repeat blood cultures have been negative - preliminary - Trachasp/sputum cx: negative; normal oral trice - Bandemia- improved 2 - Meropenem 500mg IV - Micafungin 100mg IV Skin: - Sacral wound developing - Consulted wound care for evaluation DVT proph - SCDs; heparin 3,700 units IV MWF GI proph - Pepcid 20mg PO Daily PT/OT <Nitish Armstrong - Last Filed: 11/06/16 19:12> CCU Objective - Vital Signs / Intake & Output Vital Signs (Last 4 hours): Vital Signs Temp Pulse Resp BP Pulse Ox 11/06/16 18:56 81 14 126/80 90 L 11/06/16 18:00 79 16 92 L 11/06/16 17:57 73 17 117/73 91 L 11/06/16 17:00 85 17 91 L 11/06/16 16:56 85 14 129/85 91 L 11/06/16 16:00 97.9 F 82 17 93 L 11/06/16 15:56 81 17 127/76 91 L Intake and Output (Last 8hrs): Intake & Output 11/06/16 11/06/16 11/06/16 06:59 14:59 22:59 Intake Total 350 1010 800 Output Total 480 300 410 Balance -130 710 390 Weight 190 lb 3.2 oz 190 lb Intake: Intake, IV Amount 100 100 200 Left PICC 200 Right jugular TLC distal 100 100 port Oral 250 910 600 Output: Chest Tube Drainage 30 10 Left Mid-Axillary Chest 30 10 Urine 450 300 400 Urethral (Walters) 450 300 400 Stool 0 Emesis 0 Other: # Voids Urethral (Walters) 1 - Medications Active Medications: Active Medications Generic Name Dose Route Start Last Admin Trade Name Freq PRN Reason Stop Dose Admin Acetaminophen 650 mg 10/25/16 11:56 11/02/16 23:46 Tylenol 650mg/20.3ml Solution Ud PO 650 mg Q6 PRN Administration Temperature Albumin Human 12.5 gm 10/26/16 18:45 10/27/16 12:01 Albumin Human 25% (12.5 Gm/50 Ml) IV Not Given Q8H MIRA Albuterol Sulfate 2.5 mg 10/31/16 14:00 11/06/16 13:21 Albuterol 0.083% Inhal Nikky (2.5 Mg/3 Ml) Ud INH 2.5 mg RQ6 MIRA Administration Epoetin Humphrey 10,000 unit 11/02/16 14:45 11/04/16 16:39 Procrit IV 10,000 unit MWF MIRA Administration Ferric Sodium Gluconate Complex 125 mg 11/02/16 10:12 11/06/16 09:15 Ferrlecit IVPB 11/10/16 10:13 125 mg DAILY MIRA Administration Heparin Sodium (Porcine) 3,700 units 11/02/16 15:30 11/04/16 16:38 Heparin IVP 3,700 units MWF MIRA Administration Micafungin Sodium 100 mg/ 100 mls @ 100 mls/hr 11/01/16 17:30 11/06/16 16:43 Sodium Chloride IV 100 mls/hr Q24H MIRA Administration Meropenem 500 mg/ Sodium 100 mls @ 100 mls/hr 11/01/16 17:45 11/06/16 17:50 Chloride IVPB 100 mls/hr Q12H MIRA Administration Insulin Human Regular 0 unit 11/05/16 16:30 11/06/16 16:42 Novolin R SC 2 unit ACHS MIRA Administration Protocol Lactic Acid 0 gm 10/22/16 13:00 11/06/16 18:48 Lac-Hydrin 12% Lotion (225 G) EXT 1 applic BID MIRA Administration Multivitamins 1 tab 11/06/16 10:00 11/06/16 09:15 Hexavitamin PO 1 tab DAILY MIRA Administration Pantoprazole Sodium 40 mg 11/06/16 10:00 11/06/16 09:15 Protonix Ec Tab PO 40 mg DAILY MIRA Administration Sevelamer Carbonate 800 mg 11/06/16 12:00 11/06/16 16:42 Renvela PO 800 mg TIDCC MIRA Administration - Patient Studies Lab Studies: Microbiology Studies 11/01/16 17:29 Blood Culture - Preliminary Blood-Venous NO GROWTH AFTER 4 DAYS 11/01/16 17:29 Blood Culture - Preliminary Blood-Venous NO GROWTH AFTER 4 DAYS Lab Studies 11/06/16 11/06/16 11/06/16 Range/Units 15:59 12:25 08:18 WBC (4.8-10.8) K/uL RBC (4.40-5.90) Mil/uL Hgb (12.0-18.0) g/dL Hct (35.0-51.0) % MCV (80.0-94.0) fL MCH (27.0-31.0) pg MCHC (33.0-37.0) g/dL RDW (11.5-14.5) % Plt Count (130-400) K/uL MPV (7.2-11.7) fL Neut % (Auto) (50.0-75.0) % Lymph % (Auto) (20.0-40.0) % [place] % (Auto) (0.0-10.0) % Eos % (Auto) (0.0-4.0) % Baso % (Auto) (0.0-2.0) % Neut # (1.8-7.0) K/uL Lymph # (1.0-4.3) K/uL [place] # (0.0-0.8) K/uL Eos # (0.0-0.7) K/uL Baso # (0.0-0.2) K/uL Neutrophils % (Manual) (50-75) % Band Neutrophils % (0-2) % Lymphocytes % (Manual) (20-40) % Monocytes % (Manual) (0-10) % Eosinophils % (Manual) (0-4) % Platelet Estimate (NORMAL) Hypochromasia (manual) Poikilocytosis (manual Anisocytosis (manual) Sodium (132-148) mmol/L Potassium (3.6-5.2) mmol/L Chloride (98-107) mmol/L Carbon Dioxide (22-30) mmol/L Anion Gap (10-20) BUN (9-20) mg/dL Creatinine (0.8-1.5) MG/DL Est GFR ( Amer) Est GFR (Non-Af Amer) POC Glucose (mg/dL) 206 H 160 H 126 H (65-110) mg/dL Random Glucose (75-110) mg/dL Calcium (8.6-10.4) mg/dl Phosphorus (2.5-4.5) mg/dL Magnesium (1.6-2.3) mg/dL Total Bilirubin (0.2-1.3) mg/dL AST (17-59) U/L ALT (21-72) U/L Alkaline Phosphatase (38-126) U/L Total Protein (6.3-8.3) g/dL Albumin (3.5-5.0) g/dL Globulin (2.2-3.9) gm/dL Albumin/Globulin Ratio (1.0-2.1) 11/06/16 11/06/16 11/05/16 Range/Units 06:19 06:17 21:06 WBC 12.7 H (4.8-10.8) K/uL RBC 2.48 L (4.40-5.90) Mil/uL Hgb 8.0 L (12.0-18.0) g/dL Hct 24.3 L (35.0-51.0) % MCV 98.0 H (80.0-94.0) fL MCH 32.0 H (27.0-31.0) pg MCHC 32.7 L (33.0-37.0) g/dL RDW 14.9 H (11.5-14.5) % Plt Count 105 L (130-400) K/uL MPV 11.1 (7.2-11.7) fL Neut % (Auto) 81.8 H (50.0-75.0) % Lymph % (Auto) 8.4 L (20.0-40.0) % [place] % (Auto) 7.2 (0.0-10.0) % Eos % (Auto) 2.2 (0.0-4.0) % Baso % (Auto) 0.4 (0.0-2.0) % Neut # 10.4 H (1.8-7.0) K/uL Lymph # 1.1 (1.0-4.3) K/uL [place] # 0.9 H (0.0-0.8) K/uL Eos # 0.3 (0.0-0.7) K/uL Baso # 0.1 (0.0-0.2) K/uL Neutrophils % (Manual) 80 H (50-75) % Band Neutrophils % 2 (0-2) % Lymphocytes % (Manual) 8 L (20-40) % Monocytes % (Manual) 8 (0-10) % Eosinophils % (Manual) 2 (0-4) % Platelet Estimate Slightly decreased L (NORMAL) Hypochromasia (manual) Slight Poikilocytosis (manual Slight Anisocytosis (manual) Slight Sodium 143 (132-148) mmol/L Potassium 3.8 (3.6-5.2) mmol/L Chloride 101 (98-107) mmol/L Carbon Dioxide 25 (22-30) mmol/L Anion Gap 21 H (10-20) BUN 84 H (9-20) mg/dL Creatinine 3.8 H (0.8-1.5) MG/DL Est GFR ( Amer) 21 Est GFR (Non-Af Amer) 17 POC Glucose (mg/dL) 137 H (65-110) mg/dL Random Glucose 88 (75-110) mg/dL Calcium 7.0 L (8.6-10.4) mg/dl Phosphorus 5.3 H (2.5-4.5) mg/dL Magnesium 2.1 (1.6-2.3) mg/dL Total Bilirubin 2.1 H (0.2-1.3) mg/dL AST 62 H D (17-59) U/L ALT 72 (21-72) U/L Alkaline Phosphatase 133 H D (38-126) U/L Total Protein 6.0 L (6.3-8.3) g/dL Albumin 2.7 L (3.5-5.0) g/dL Globulin 3.3 (2.2-3.9) gm/dL Albumin/Globulin Ratio 0.8 L (1.0-2.1) Laboratory Results - last 24 hr 11/05/16 11/06/16 11/06/16 21:06 06:17 06:19 WBC 12.7 H RBC 2.48 L Hgb 8.0 L Hct 24.3 L MCV 98.0 H MCH 32.0 H MCHC 32.7 L RDW 14.9 H Plt Count 105 L MPV 11.1 Neut % (Auto) 81.8 H Lymph % (Auto) 8.4 L [place] % (Auto) 7.2 Eos % (Auto) 2.2 Baso % (Auto) 0.4 Neut # 10.4 H Lymph # 1.1 [place] # 0.9 H Eos # 0.3 Baso # 0.1 Neutrophils % (Manual) 80 H Band Neutrophils % 2 Lymphocytes % (Manual) 8 L Monocytes % (Manual) 8 Eosinophils % (Manual) 2 Platelet Estimate Slightly decreased L Hypochromasia (manual) Slight Poikilocytosis (manual Slight Anisocytosis (manual) Slight Sodium 143 Potassium 3.8 Chloride 101 Carbon Dioxide 25 Anion Gap 21 H BUN 84 H Creatinine 3.8 H Est GFR ( Amer) 21 Est GFR (Non-Af Amer) 17 POC Glucose (mg/dL) 137 H Random Glucose 88 Calcium 7.0 L Phosphorus 5.3 H Magnesium 2.1 Total Bilirubin 2.1 H AST 62 H D ALT 72 Alkaline Phosphatase 133 H D Total Protein 6.0 L Albumin 2.7 L Globulin 3.3 Albumin/Globulin Ratio 0.8 L 11/06/16 11/06/16 11/06/16 08:18 12:25 15:59 WBC RBC Hgb Hct MCV MCH MCHC RDW Plt Count MPV Neut % (Auto) Lymph % (Auto) [place] % (Auto) Eos % (Auto) Baso % (Auto) Neut # Lymph # [place] # Eos # Baso # Neutrophils % (Manual) Band Neutrophils % Lymphocytes % (Manual) Monocytes % (Manual) Eosinophils % (Manual) Platelet Estimate Hypochromasia (manual) Poikilocytosis (manual Anisocytosis (manual) Sodium Potassium Chloride Carbon Dioxide Anion Gap BUN Creatinine Est GFR ( Amer) Est GFR (Non-Af Amer) POC Glucose (mg/dL) 126 H 160 H 206 H Random Glucose Calcium Phosphorus Magnesium Total Bilirubin AST ALT Alkaline Phosphatase Total Protein Albumin Globulin Albumin/Globulin Ratio Critical Care Progress Note - Nutrition Nutrition: Nutrition Category Date Time Status Consistent Carbohydrate [DIET] Diets 11/05/16 Breakfast Active Attending/Attestation - Attestation I have personally seen and examined this patient.: Yes I have fully participated in the care of the patient.: Yes I have reviewed all pertinent clinical information: Yes Notes (Text): 11/06/16 19:09 I have seen and examined the patient. Medical records, lab studies, and imaging were reviewed by me and a management plan was formulated on multidisciplinary rounds with resident Dr. Luna. I agree with their above documented assessment and plan. Patient is clinically stable. Pneumothorax still present, will keep chest tube to suction. Stopped steroids, will try water seal again, if recurrent pneumothorax patient will need pleurodesis. Critical Care Time 35 minutes. Multi-disciplinary rounds were performed with house staff, nursing, speech therapy, respiratory therapy, pharmacy and nutrition with integrated input from the primary team/attending and other consulting services. The documented time is cumulative and includes review of patient data/exams/labs/chart review and examination of the patient on rounds and throughout the day; time is exclusive of any procedures or teaching time.
[2016-11-06] MEDS: EPOETIN ALFA 10,000 UNIT/ML ML IV SCH (22:23)
[2016-11-07] MEDS: Albuterol 0.083% Inhal Sol (2.5 mg/3 mL) UD INH SCH ×4 (02:33→19:18)
[2016-11-07] MEDS: Meropenem 500 MG in Sodium Chloride 0.9% 100 ML IVPB SCH ×2 (05:42→18:35)
[2016-11-07 06:37] LABS: BASO # 0.1 K/uL (0.0-0.2); BASO % 0.5 % (0.0-2.0); EOS # 0.2 K/uL (0.0-0.7); EOS % 1.7 % (0.0-4.0); HEMATOCRIT 25.5 % (35.0-51.0); LYMPH # 1.2 K/uL (1.0-4.3); LYMPH % 8.9 % (20.0-40.0); MEAN CELL VOLUME 97.6 fL (80.0-94.0); MEAN CORPUSCULAR HEMOGLOBIN 32.3 pg (27.0-31.0); MEAN CORPUSCULAR HGB CONC 33.1 g/dL (33.0-37.0); MEAN PLATELET VOLUME 10.7 fL (7.2-11.7); MONO # 1.1 K/uL (0.0-0.8); MONO % 7.9 % (0.0-10.0); PLATELET COUNT 95 K/uL (130-400); RED CELL DISTRIBUTION WIDTH 14.9 % (11.5-14.5); WHITE BLOOD COUNT 13.8 K/uL (4.8-10.8)
[2016-11-07 06:50] LABS: POTASSIUM 3.6 mmol/L (3.6-5.2)
[2016-11-07 06:52] LABS: BILIRUBIN,TOTAL 2.1 mg/dL (0.2-1.3)
[2016-11-07 06:53] LABS: ALB/GLOB RATIO 0.8 (1.0-2.1); PHOSPHOROUS 5.1 mg/dL (2.5-4.5); TOTAL PROTEIN 6.4 g/dL (6.3-8.3)
[2016-11-07 06:54] LABS: MAGNESIUM 1.6 mg/dL (1.6-2.3)
[2016-11-07] MEDS: (Novolin R) Insulin Human Regular 100 units/ml vial SC SCH ×4 (07:46→22:25)
--- NOTE | 2016-11-07 08:37 | RAD ---
HISTORY: pneumothorax COMPARISON: 11/04/2016 FINDINGS: LUNGS: Right central venous catheter tip extending into the right atrium. Left PICC line with tip extending into the right SVC with slight curve at the distal PICC line. Moderate venous congestion with bilateral hilar prominence. Patchy consolidative increased markings at the bilateral lung bases with trace left pleural effusion. PLEURA: As above. CARDIOVASCULAR: Cardiomegaly. OSSEOUS STRUCTURES: No significant abnormalities. VISUALIZED UPPER ABDOMEN: Normal. OTHER FINDINGS: None. IMPRESSION: Right central venous catheter tip extending into the right atrium. Left PICC line with tip extending into the right SVC with slight curve at the distal PICC line. Moderate venous congestion with bilateral hilar prominence. Patchy consolidative increased markings at the bilateral lung bases with trace left pleural effusion.
[2016-11-07] MEDS: Ferric Sodium Gluconat Complex 62.5 mg/5 ml Vial IVPB SCH (09:03)
[2016-11-07] MEDS: Pantoprazole 40 mg EC Tab PO SCH (09:14)
[2016-11-07] MEDS: Multiple Vitamins Tab PO SCH (09:15)
[2016-11-07] MEDS: Ammonium Lactate 12% Lotion (225 g) EXT SCH ×2 (09:17→18:44)
[2016-11-07 09:39] LABS: EOSINOPHIL 1 % (0-4); TOTAL CELLS COUNTED 100
[2016-11-07 09:40] LABS: NEUTROPHIL 83 % (50-75)
--- NOTE | 2016-11-07 16:30 | CP.PCM.PN ---
Subjective - Date & Time of Evaluation Date of Evaluation: 11/07/16 Time of Evaluation: 11:30 - Subjective Subjective: Patient seen and examined at bedside in ICU. Patient complains of generalized weakness. Objective - Vital Signs/Intake and Output Vital Signs (last 24 hours): Temp Pulse Resp BP Pulse Ox 98.5 F 80 17 116/76 92 L 11/07/16 16:00 11/07/16 16:00 11/07/16 16:00 11/07/16 15:36 11/07/16 16:00 Intake and Output: 11/07/16 11/07/16 06:59 18:59 Intake Total 300 900 Output Total 650 20 Balance -350 880 - Medications Medications: Current Medications Acetaminophen (Tylenol 650mg/20.3ml Solution Ud) 650 mg PO Q6 PRN PRN Reason: Temperature Last Admin: 11/02/16 23:46 Dose: 650 mg Albumin Human (Albumin Human 25% (12.5 Gm/50 Ml)) 12.5 gm IV Q8H [facility] Last Admin: 10/27/16 12:01 Dose: Not Given Albuterol Sulfate (Albuterol 0.083% Inhal Nikky (2.5 Mg/3 Ml) Ud) 2.5 mg INH RQ6 [facility] Last Admin: 11/07/16 13:16 Dose: 2.5 mg Epoetin Humphrey (Procrit) 10,000 unit IV F [facility] Last Admin: 11/06/16 22:23 Dose: 10,000 unit Ferric Sodium Gluconate Complex (Ferrlecit) 125 mg IVPB DAILY [facility] Stop: 11/10/16 10:13 Last Admin: 11/07/16 09:03 Dose: 125 mg Heparin Sodium (Porcine) (Heparin) 3,700 units IVP MWF [facility] Last Admin: 11/06/16 22:24 Dose: 3,700 units Micafungin Sodium 100 mg/ (Sodium Chloride) 100 mls @ 100 mls/hr IV Q24H [facility] Last Admin: 11/06/16 16:43 Dose: 100 mls/hr Meropenem 500 mg/ Sodium (Chloride) 100 mls @ 100 mls/hr IVPB Q12H [facility] Last Admin: 11/07/16 05:42 Dose: 100 mls/hr Insulin Human Regular (Novolin R) 0 unit SC ACHS [facility] PRN Reason: Protocol Last Admin: 11/07/16 16:26 Dose: Not Given Lactic Acid (Lac-Hydrin 12% Lotion (225 G)) 0 gm EXT BID [facility] Last Admin: 11/07/16 09:17 Dose: 1 applic Multivitamins (Hexavitamin) 1 tab PO DAILY [facility] Last Admin: 11/07/16 09:15 Dose: 1 tab Pantoprazole Sodium (Protonix Ec Tab) 40 mg PO DAILY [facility] Last Admin: 11/07/16 09:14 Dose: 40 mg Sevelamer Carbonate (Renvela) 800 mg PO TIDCC [facility] Last Admin: 11/07/16 11:58 Dose: 800 mg - Labs Labs: 11/07/16 06:19 11/07/16 06:14 PT 17.7 SECONDS (9.7-12.2) H 10/29/16 06:22 INR 1.6 10/29/16 06:22 APTT 30 SECONDS (21-34) 10/29/16 06:22 - Head Exam Head Exam: ATRAUMATIC, NORMOCEPHALIC - Eye Exam Eye Exam: EOMI, PERRL - ENT Exam ENT Exam: Mucous Membranes Moist - Respiratory Exam Respiratory Exam: Clear to Ausculation Bilateral Additional comments: Left sided chest tube present. - Cardiovascular Exam Cardiovascular Exam: REGULAR RHYTHM, +S1, +S2 - GI/Abdominal Exam GI & Abdominal Exam: Soft. absent: Tenderness - Extremities Exam Extremities Exam: absent: Pedal Edema Assessment and Plan (1) Alcohol withdrawal Assessment & Plan: Patient is status post a DT. Now stable. Status: Acute (2) Hypoxemia Assessment & Plan: Status post extubation. Respiratory status is stable Status: Acute (3) Pneumonia Assessment & Plan: On antibiotics. Status: Acute (4) Respiratory distress Assessment & Plan: Patient was intubated. Now extubated. Chest tube is present. Status: Acute (5) Seizure disorder Assessment & Plan: Secondary to alcohol withdrawal. Now stable. Status: Acute (6) Sepsis Assessment & Plan: Continue current antibiotics. Status: Acute (7) Thrombocythemia Status: Chronic (8) Psoriasis Assessment & Plan: Local care Status: Acute (9) Renal failure Assessment & Plan: On hemodialysis. Status: Acute (10) Spontaneous pneumothorax Assessment & Plan: Chest tube is present. Status: Acute
[2016-11-07] MEDS: Micafungin 100 MG in Sodium Chloride 0.9% 100 ML IV SCH (17:19)
--- NOTE | 2016-11-07 17:24 | CP.CCUPN ---
CCU Subjective - Physician Review Events Since Last Encounter (Free Text): 11/07/16 17:20 patient feeling well today and no complaints. CCU Objective - Vital Signs / Intake & Output Vital Signs (Last 4 hours): Vital Signs Temp Pulse Resp BP Pulse Ox 11/07/16 16:00 98.5 F 80 17 92 L 11/07/16 15:36 81 15 116/76 93 L 11/07/16 15:00 80 16 93 L 11/07/16 14:36 83 19 112/73 86 L 11/07/16 14:00 84 12 89 L 11/07/16 13:36 90 14 126/81 11/07/16 13:35 95 H 16 124/84 90 L Intake and Output (Last 8hrs): Intake & Output 11/07/16 11/07/16 11/07/16 06:59 14:59 22:59 Intake Total 300 900 0 Output Total 650 320 300 Balance -350 580 -300 Weight 181 lb 14.102 oz 182 lb 12.8 oz Intake: Intake, IV Amount 100 100 Left PICC 100 100 Oral 200 800 0 Output: Chest Tube Drainage 20 Left Mid-Axillary Chest 20 Urine 650 300 300 Urethral (Walters) 650 300 300 Other: # Voids Urethral (Walters) 1 1 # Bowel Movements 1 1 1 - Physical Exam Head: Positive for: Atraumatic, Normocephalic Extroacular Muscles: Positive for: EOMI Mouth: Positive for: Moist Mucous Membranes Respiratory/Chest: Positive for: Wheezes, Decreased Breath Sounds, Rhonchi Cardiovascular: Positive for: Regular Rate and Rhythm, Normal S1, S2 Abdomen: Positive for: Distention, Normal Bowel Sounds Genitourinary Male: Positive for: Other (walters in place) Upper Extremity: Negative for: Edema Lower Extremity: Negative for: Edema Neurological: Positive for: Other (tremors) Skin: Positive for: Warm, Other (Psoriasis located on b/l knees, bilateral upper extremities) Psychiatric: Positive for: Alert (patient is sedated and intubated ), Oriented x 3 - Medications Active Medications: Active Medications Generic Name Dose Route Start Last Admin Trade Name Freq PRN Reason Stop Dose Admin Acetaminophen 650 mg 10/25/16 11:56 11/02/16 23:46 Tylenol 650mg/20.3ml Solution Ud PO 650 mg Q6 PRN Administration Temperature Albumin Human 12.5 gm 10/26/16 18:45 10/27/16 12:01 Albumin Human 25% (12.5 Gm/50 Ml) IV Not Given Q8H [facility] Albuterol Sulfate 2.5 mg 10/31/16 14:00 11/07/16 13:16 Albuterol 0.083% Inhal Nikky (2.5 Mg/3 Ml) Ud INH 2.5 mg RQ6 [facility] Administration Epoetin Humphrey 10,000 unit 11/02/16 14:45 11/06/16 22:23 Procrit IV 10,000 unit [facility] Administration Ferric Sodium Gluconate Complex 125 mg 11/02/16 10:12 11/07/16 09:03 Ferrlecit IVPB 11/10/16 10:13 125 mg DAILY [facility] Administration Heparin Sodium (Porcine) 3,700 units 11/02/16 15:30 11/06/16 22:24 Heparin IVP 3,700 units [facility] Administration Micafungin Sodium 100 mg/ 100 mls @ 100 mls/hr 11/01/16 17:30 11/06/16 16:43 Sodium Chloride IV 100 mls/hr Q24H [facility] Administration Meropenem 500 mg/ Sodium 100 mls @ 100 mls/hr 11/01/16 17:45 11/07/16 05:42 Chloride IVPB 100 mls/hr Q12H [facility] Administration Insulin Human Regular 0 unit 11/05/16 16:30 11/07/16 16:26 Novolin R SC Not Given ACHS [facility] Protocol Lactic Acid 0 gm 10/22/16 13:00 11/07/16 09:17 Lac-Hydrin 12% Lotion (225 G) EXT 1 applic BID [facility] Administration Multivitamins 1 tab 11/06/16 10:00 11/07/16 09:15 Hexavitamin PO 1 tab DAILY [facility] Administration Pantoprazole Sodium 40 mg 11/06/16 10:00 11/07/16 09:14 Protonix Ec Tab PO 40 mg DAILY [facility] Administration Sevelamer Carbonate 800 mg 11/06/16 12:00 11/07/16 17:17 Renvela PO 800 mg TIDCC [facility] Administration - Patient Studies Lab Studies: Microbiology Studies 11/01/16 17:29 Blood Culture - Final Blood-Venous NO GROWTH AFTER 5 DAYS Gram Stain - Final TEST NOT PERFORMED 11/01/16 17:29 Blood Culture - Final Blood-Venous NO GROWTH AFTER 5 DAYS Gram Stain - Final TEST NOT PERFORMED Lab Studies 11/07/16 11/07/16 11/07/16 Range/Units 16:00 11:26 07:27 WBC (4.8-10.8) K/uL RBC (4.40-5.90) Mil/uL Hgb (12.0-18.0) g/dL Hct (35.0-51.0) % MCV (80.0-94.0) fL MCH (27.0-31.0) pg MCHC (33.0-37.0) g/dL RDW (11.5-14.5) % Plt Count (130-400) K/uL MPV (7.2-11.7) fL Neut % (Auto) (50.0-75.0) % Lymph % (Auto) (20.0-40.0) % [place] % (Auto) (0.0-10.0) % Eos % (Auto) (0.0-4.0) % Baso % (Auto) (0.0-2.0) % Neut # (1.8-7.0) K/uL Lymph # (1.0-4.3) K/uL Cla[place]orne # (0.0-0.8) K/uL Eos # (0.0-0.7) K/uL Baso # (0.0-0.2) K/uL Neutrophils % (Manual) (50-75) % Band Neutrophils % (0-2) % Lymphocytes % (Manual) (20-40) % Monocytes % (Manual) (0-10) % Eosinophils % (Manual) (0-4) % Platelet Estimate (NORMAL) Hypochromasia (manual) Anisocytosis (manual) Ovalocytes Sodium (132-148) mmol/L Potassium (3.6-5.2) mmol/L Chloride (98-107) mmol/L Carbon Dioxide (22-30) mmol/L Anion Gap (10-20) BUN (9-20) mg/dL Creatinine (0.8-1.5) MG/DL Est GFR ( Amer) Est GFR (Non-Af Amer) POC Glucose (mg/dL) 125 H 140 H 97 (65-110) mg/dL Random Glucose (75-110) mg/dL Calcium (8.6-10.4) mg/dl Phosphorus (2.5-4.5) mg/dL Magnesium (1.6-2.3) mg/dL Total Bilirubin (0.2-1.3) mg/dL AST (17-59) U/L ALT (21-72) U/L Alkaline Phosphatase (38-126) U/L Total Protein (6.3-8.3) g/dL Albumin (3.5-5.0) g/dL Globulin (2.2-3.9) gm/dL Albumin/Globulin Ratio (1.0-2.1) 11/07/16 11/07/16 11/06/16 Range/Units 06:19 06:14 21:26 WBC 13.8 H (4.8-10.8) K/uL RBC 2.61 L (4.40-5.90) Mil/uL Hgb 8.5 L (12.0-18.0) g/dL Hct 25.5 L (35.0-51.0) % MCV 97.6 H (80.0-94.0) fL MCH 32.3 H (27.0-31.0) pg MCHC 33.1 (33.0-37.0) g/dL RDW 14.9 H (11.5-14.5) % Plt Count 95 L (130-400) K/uL MPV 10.7 (7.2-11.7) fL Neut % (Auto) 81.0 H (50.0-75.0) % Lymph % (Auto) 8.9 L (20.0-40.0) % [place]orne % (Auto) 7.9 (0.0-10.0) % Eos % (Auto) 1.7 (0.0-4.0) % Baso % (Auto) 0.5 (0.0-2.0) % Neut # 11.2 H (1.8-7.0) K/uL Lymph # 1.2 (1.0-4.3) K/uL Cla[place]orne # 1.1 H (0.0-0.8) K/uL Eos # 0.2 (0.0-0.7) K/uL Baso # 0.1 (0.0-0.2) K/uL Neutrophils % (Manual) 83 H (50-75) % Band Neutrophils % 2 (0-2) % Lymphocytes % (Manual) 7 L (20-40) % Monocytes % (Manual) 7 (0-10) % Eosinophils % (Manual) 1 (0-4) % Platelet Estimate Decreased L (NORMAL) Hypochromasia (manual) Slight Anisocytosis (manual) Slight Ovalocytes Slight Sodium 139 (132-148) mmol/L Potassium 3.6 (3.6-5.2) mmol/L Chloride 97 L (98-107) mmol/L Carbon Dioxide 26 (22-30) mmol/L Anion Gap 19 (10-20) BUN 49 H (9-20) mg/dL Creatinine 2.3 H (0.8-1.5) MG/DL Est GFR ( Amer) 37 Est GFR (Non-Af Amer) 31 POC Glucose (mg/dL) 135 H (65-110) mg/dL Random Glucose 79 (75-110) mg/dL Calcium 7.0 L (8.6-10.4) mg/dl Phosphorus 5.1 H (2.5-4.5) mg/dL Magnesium 1.6 (1.6-2.3) mg/dL Total Bilirubin 2.1 H (0.2-1.3) mg/dL AST 53 (17-59) U/L ALT 82 H (21-72) U/L Alkaline Phosphatase 143 H (38-126) U/L Total Protein 6.4 (6.3-8.3) g/dL Albumin 2.8 L (3.5-5.0) g/dL Globulin 3.6 (2.2-3.9) gm/dL Albumin/Globulin Ratio 0.8 L (1.0-2.1) Laboratory Results - last 24 hr 11/06/16 11/07/16 11/07/16 21:26 06:14 06:19 WBC 13.8 H RBC 2.61 L Hgb 8.5 L Hct 25.5 L MCV 97.6 H MCH 32.3 H MCHC 33.1 RDW 14.9 H Plt Count 95 L MPV 10.7 Neut % (Auto) 81.0 H Lymph % (Auto) 8.9 L [place] % (Auto) 7.9 Eos % (Auto) 1.7 Baso % (Auto) 0.5 Neut # 11.2 H Lymph # 1.2 [place]orne # 1.1 H Eos # 0.2 Baso # 0.1 Neutrophils % (Manual) 83 H Band Neutrophils % 2 Lymphocytes % (Manual) 7 L Monocytes % (Manual) 7 Eosinophils % (Manual) 1 Platelet Estimate Decreased L Hypochromasia (manual) Slight Anisocytosis (manual) Slight Ovalocytes Slight Sodium 139 Potassium 3.6 Chloride 97 L Carbon Dioxide 26 Anion Gap 19 BUN 49 H Creatinine 2.3 H Est GFR ( Amer) 37 Est GFR (Non-Af Amer) 31 POC Glucose (mg/dL) 135 H Random Glucose 79 Calcium 7.0 L Phosphorus 5.1 H Magnesium 1.6 Total Bilirubin 2.1 H AST 53 ALT 82 H Alkaline Phosphatase 143 H Total Protein 6.4 Albumin 2.8 L Globulin 3.6 Albumin/Globulin Ratio 0.8 L 11/07/16 11/07/16 11/07/16 07:27 11:26 16:00 WBC RBC Hgb Hct MCV MCH MCHC RDW Plt Count MPV Neut % (Auto) Lymph % (Auto) Cla[place]orne % (Auto) Eos % (Auto) Baso % (Auto) Neut # Lymph # [place] # Eos # Baso # Neutrophils % (Manual) Band Neutrophils % Lymphocytes % (Manual) Monocytes % (Manual) Eosinophils % (Manual) Platelet Estimate Hypochromasia (manual) Anisocytosis (manual) Ovalocytes Sodium Potassium Chloride Carbon Dioxide Anion Gap BUN Creatinine Est GFR ( Amer) Est GFR (Non-Af Amer) POC Glucose (mg/dL) 97 140 H 125 H Random Glucose Calcium Phosphorus Magnesium Total Bilirubin AST ALT Alkaline Phosphatase Total Protein Albumin Globulin Albumin/Globulin Ratio Fingerstick Blood Sugar Results: 125 Review of Systems - Review of Systems All systems: reviewed and no additional remarkable complaints except - Respiratory Respiratory: Pain on Inspiration Critical Care Progress Note - Nutrition Nutrition: Nutrition Category Date Time Status Consistent Carbohydrate [DIET] Diets 11/05/16 Breakfast Active Assessment/Plan (1) Pneumothorax Assessment and plan: 45yo M. Homeless with no know PMHx. Presented with strep bacteremia c/b acute renal failure requiring initiation of dialysis. Hospital course c/b ARDS with spontaneous pneumothorax now s/p pigtail catheter. Neuro: Alert and oriented 3 Pulm: Spontaneous pneumothorax secondary to recent episode of ARDS. Pigtail chest tube to wall suction. We'll put chest tube to waterseal tomorrow, if pneumothorax persists patient will need pleurodesis, we'll consult thoracic surgery. CV: Hemodynamically stable Hem: No acute issues Renal: Acute kidney injury now requiring dialysis (MWF). Endo: No acute issues GI: Carb consistent diet ID: Sepsis resolved, recent strep bacteremia, continue IV antibiotics for 4 weeks since negative blood culture. IV Rocephin, to stop November 23. DVT proph - heparin subcutaneous GI proph - Pepcid walters for strict I/O's during acute illness Code status - full code Permacath (10/30/16) PICC line () Critical Care Time spent 35 minutes Multi-disciplinary rounds were performed with house staff, nursing, speech therapy, respiratory therapy, pharmacy and nutrition with integrated input from the primary team/attending and other consulting services. The documented time is cumulative and includes review of patient data/exams/labs/chart review and examination of the patient on rounds and throughout the day; time is exclusive of any procedures or teaching time. Current Visit: Yes Status: Acute
[2016-11-08] MEDS: Albuterol 0.083% Inhal Sol (2.5 mg/3 mL) UD INH SCH ×4 (02:12→19:48)
[2016-11-08] MEDS: Meropenem 500 MG in Sodium Chloride 0.9% 100 ML IVPB SCH ×2 (04:45→17:51)
[2016-11-08 06:42] LABS: BASO # 0.1 K/uL (0.0-0.2); BASO % 0.4 % (0.0-2.0); EOS # 0.8 K/uL (0.0-0.7); EOS % 4.4 % (0.0-4.0); HEMATOCRIT 26.5 % (35.0-51.0); LYMPH # 1.1 K/uL (1.0-4.3); LYMPH % 6.1 % (20.0-40.0); MEAN CELL VOLUME 98.6 fL (80.0-94.0); MEAN CORPUSCULAR HGB CONC 33.5 g/dL (33.0-37.0); MEAN PLATELET VOLUME 10.1 fL (7.2-11.7); MONO % 5.7 % (0.0-10.0); PLATELET COUNT 83 K/uL (130-400); RED CELL DISTRIBUTION WIDTH 14.8 % (11.5-14.5); WHITE BLOOD COUNT 17.5 K/uL (4.8-10.8)
[2016-11-08 06:50] LABS: ALB/GLOB RATIO 0.8 (1.0-2.1); BILIRUBIN,TOTAL 1.9 mg/dL (0.2-1.3); CALCIUM 7.4 mg/dl (8.6-10.4); MAGNESIUM 1.7 mg/dL (1.6-2.3); PHOSPHOROUS 5.3 mg/dL (2.5-4.5); POTASSIUM 3.8 mmol/L (3.6-5.2)
[2016-11-08] MEDS: (Novolin R) Insulin Human Regular 100 units/ml vial SC SCH ×4 (07:38→21:52)
--- NOTE | 2016-11-08 08:48 | RAD ---
Chest x-ray single frontal view History: Pneumothorax. Comparison: 11/07/2016 Findings: Lines and tubes in stable position. Moderate to severe venous congestion with confluent airspace opacification in the left mid to lower lung zone. Suggestion of a small left pleural effusion. Portion of the left costophrenic angle excluded from this study. Cardiomegaly. Degenerative changes in the spine and shoulders. Impression: Moderate to severe venous congestion with confluent airspace opacification in the left mid to lower lung zone. Suggestion of a small left pleural effusion. Portion of the left costophrenic angle excluded from this study. Cardiomegaly.
[2016-11-08 09:18] LABS: TOTAL CELLS COUNTED 100
[2016-11-08 09:19] LABS: EOSINOPHIL 1 % (0-4); NEUTROPHIL 83 % (50-75)
[2016-11-08] MEDS: Multiple Vitamins Tab PO SCH (09:33)
[2016-11-08] MEDS: Pantoprazole 40 mg EC Tab PO SCH (09:33)
[2016-11-08] MEDS: Ferric Sodium Gluconat Complex 62.5 mg/5 ml Vial IVPB SCH (09:35)
[2016-11-08] MEDS: Ammonium Lactate 12% Lotion (225 g) EXT SCH ×2 (09:47→17:53)
--- NOTE | 2016-11-08 16:28 | CP.PCM.PN ---
Subjective - Date & Time of Evaluation Date of Evaluation: 11/08/16 Time of Evaluation: 13:00 - Subjective Subjective: Patient was seen and examined at bedside in ICU Patient is awake alert and sitting in the bed comfortably However he complains of generalized weakness. Objective - Vital Signs/Intake and Output Vital Signs (last 24 hours): Temp Pulse Resp BP Pulse Ox 99.5 F 101 H 21 119/75 89 L 11/08/16 13:24 11/08/16 15:36 11/08/16 15:36 11/08/16 15:36 11/08/16 15:36 Intake and Output: 11/08/16 11/08/16 06:59 18:59 Intake Total 1080 800 Output Total 1110 700 Balance -30 100 - Medications Medications: Current Medications Acetaminophen (Tylenol 650mg/20.3ml Solution Ud) 650 mg PO Q6 PRN PRN Reason: Temperature Last Admin: 11/02/16 23:46 Dose: 650 mg Albumin Human (Albumin Human 25% (12.5 Gm/50 Ml)) 12.5 gm IV Q8H [facility] Last Admin: 10/27/16 12:01 Dose: Not Given Albuterol Sulfate (Albuterol 0.083% Inhal Nikky (2.5 Mg/3 Ml) Ud) 2.5 mg INH RQ6 [facility] Last Admin: 11/08/16 13:34 Dose: 2.5 mg Epoetin Humphrey (Procrit) 10,000 unit IV MWF [facility] Last Admin: 11/06/16 22:23 Dose: 10,000 unit Ferric Sodium Gluconate Complex (Ferrlecit) 125 mg IVPB DAILY [facility] Stop: 11/10/16 10:13 Last Admin: 11/08/16 09:35 Dose: 125 mg Micafungin Sodium 100 mg/ (Sodium Chloride) 100 mls @ 100 mls/hr IV Q24H [facility] Last Admin: 11/07/16 17:19 Dose: 100 mls/hr Meropenem 500 mg/ Sodium (Chloride) 100 mls @ 100 mls/hr IVPB Q12H [facility] Last Admin: 11/08/16 04:45 Dose: 100 mls/hr Insulin Human Regular (Novolin R) 0 unit SC ACHS [facility] PRN Reason: Protocol Last Admin: 11/08/16 16:14 Dose: Not Given Lactic Acid (Lac-Hydrin 12% Lotion (225 G)) 0 gm EXT BID [facility] Last Admin: 11/08/16 09:47 Dose: 1 applic Multivitamins (Hexavitamin) 1 tab PO DAILY [facility] Last Admin: 11/08/16 09:33 Dose: 1 tab Pantoprazole Sodium (Protonix Ec Tab) 40 mg PO DAILY [facility] Last Admin: 11/08/16 09:33 Dose: 40 mg Sevelamer Carbonate (Renvela) 800 mg PO TIDCC [facility] Last Admin: 11/08/16 11:45 Dose: 800 mg - Labs Labs: 11/08/16 06:31 11/08/16 06:31 PT 17.7 SECONDS (9.7-12.2) H 10/29/16 06:22 INR 1.6 10/29/16 06:22 APTT 30 SECONDS (21-34) 10/29/16 06:22 - Head Exam Head Exam: ATRAUMATIC, NORMOCEPHALIC - Eye Exam Eye Exam: EOMI, Normal appearance - ENT Exam ENT Exam: Mucous Membranes Moist - Neck Exam Neck Exam: Normal Inspection - Respiratory Exam Respiratory Exam: Rhonchi, Wheezes Additional comments: Left sided chest tube present. - Cardiovascular Exam Cardiovascular Exam: REGULAR RHYTHM, +S1, +S2 - GI/Abdominal Exam GI & Abdominal Exam: Soft. absent: Tenderness - Extremities Exam Extremities Exam: absent: Pedal Edema - Neurological Exam Neurological Exam: Alert, Awake, Oriented x3 Assessment and Plan (1) Alcohol withdrawal Assessment & Plan: Patient went into DTs. Now recovered. Status: Acute (2) Hypoxemia Assessment & Plan: Patient developed ARDS. Was intubated. Now patient is extubated. Monitor respiratory status closely. Patient has a chest tube. Status: Acute (3) Pneumonia Assessment & Plan: Patient developed pneumonia/sepsis/ARDS. On antibiotics as per recommendations of ID. Status: Acute (4) Respiratory distress Assessment & Plan: Status post extubation now. Status: Acute (5) Seizure disorder Assessment & Plan: Secondary to alcohol withdrawal. Now stable. Status: Acute (6) Sepsis Assessment & Plan: Secondary to pneumonia. On antibiotics. Status: Acute (7) Thrombocythemia Assessment & Plan: Secondary to alcohol abuse. Status: Chronic (8) Psoriasis Assessment & Plan: Continue local care. Status: Acute (9) Renal failure Assessment & Plan: Patient developed ATN. On hemodialysis now. Nephrology is on board. Status: Acute (10) Spontaneous pneumothorax Assessment & Plan: Secondary to ARDS. Now patient is a chest tube. Currently on waterseal. Removal of chest tube as per ICU team. Status: Acute
[2016-11-08] MEDS: Micafungin 100 MG in Sodium Chloride 0.9% 100 ML IV SCH (16:41)
--- NOTE | 2016-11-08 16:52 | CP.CCUPN ---
CCU Subjective - Physician Review Events Since Last Encounter (Free Text): 11/08/16 16:50 patient is clinically stable, no complaints. CCU Objective - Vital Signs / Intake & Output Vital Signs (Last 4 hours): Vital Signs Temp Pulse Resp BP Pulse Ox 11/08/16 16:36 83 15 112/73 95 11/08/16 16:00 88 19 96 11/08/16 15:36 101 H 21 119/75 89 L 11/08/16 15:00 88 18 91 L 11/08/16 14:36 88 18 122/72 92 L 11/08/16 14:00 102 H 15 92 L 11/08/16 13:36 89 19 115/72 95 11/08/16 13:24 99.5 F 11/08/16 13:00 98 H 16 92 L Intake and Output (Last 8hrs): Intake & Output 11/08/16 11/08/16 11/08/16 06:59 14:59 22:59 Intake Total 560 700 100 Output Total 760 300 400 Balance -200 400 -300 Weight 179 lb 10.828 oz Intake: Intake, IV Amount 100 100 Left PICC 100 100 Oral 460 600 100 Output: Chest Tube Drainage 10 Left Mid-Axillary Chest 10 Urine 750 300 400 Urethral (Walters) 750 300 400 Other: # Voids Urethral (Walters) 1 1 1 # Bowel Movements 1 1 - Physical Exam Head: Positive for: Atraumatic, Normocephalic Extroacular Muscles: Positive for: EOMI Mouth: Positive for: Moist Mucous Membranes Respiratory/Chest: Positive for: Wheezes, Decreased Breath Sounds, Rhonchi Cardiovascular: Positive for: Regular Rate and Rhythm, Normal S1, S2 Abdomen: Positive for: Distention, Normal Bowel Sounds Genitourinary Male: Positive for: Other (walters in place) Upper Extremity: Negative for: Edema Lower Extremity: Negative for: Edema Neurological: Positive for: Other (tremors) Skin: Positive for: Warm, Other (Psoriasis located on b/l knees, bilateral upper extremities) Psychiatric: Positive for: Alert (patient is sedated and intubated ), Oriented x 3 - Medications Active Medications: Active Medications Generic Name Dose Route Start Last Admin Trade Name Freq PRN Reason Stop Dose Admin Acetaminophen 650 mg 10/25/16 11:56 11/02/16 23:46 Tylenol 650mg/20.3ml Solution Ud PO 650 mg Q6 PRN Administration Temperature Albumin Human 12.5 gm 10/26/16 18:45 10/27/16 12:01 Albumin Human 25% (12.5 Gm/50 Ml) IV Not Given Q8H MIRA Albuterol Sulfate 2.5 mg 10/31/16 14:00 11/08/16 13:34 Albuterol 0.083% Inhal Nikky (2.5 Mg/3 Ml) Ud INH 2.5 mg RQ6 MIRA Administration Epoetin Humphrey 10,000 unit 11/02/16 14:45 11/06/16 22:23 Procrit IV 10,000 unit MWF M[facility]A Administration Ferric Sodium Gluconate Complex 125 mg 11/02/16 10:12 11/08/16 09:35 Ferrlecit IVPB 11/10/16 10:13 125 mg DAILY MIRA Administration Micafungin Sodium 100 mg/ 100 mls @ 100 mls/hr 11/01/16 17:30 11/08/16 16:41 Sodium Chloride IV 100 mls/hr Q24H MIRA Administration Meropenem 500 mg/ Sodium 100 mls @ 100 mls/hr 11/01/16 17:45 11/08/16 04:45 Chloride IVPB 100 mls/hr Q12H MIRA Administration Insulin Human Regular 0 unit 11/05/16 16:30 11/08/16 16:14 Novolin R SC Not Given ACHS MIRA Protocol Lactic Acid 0 gm 10/22/16 13:00 11/08/16 09:47 Lac-Hydrin 12% Lotion (225 G) EXT 1 applic BID MIRA Administration Multivitamins 1 tab 11/06/16 10:00 11/08/16 09:33 Hexavitamin PO 1 tab DAILY M[facility]A Administration Pantoprazole Sodium 40 mg 11/06/16 10:00 11/08/16 09:33 Protonix Ec Tab PO 40 mg DAILY M[facility] Administration Sevelamer Carbonate 800 mg 11/06/16 12:00 11/08/16 16:40 Renvela PO 800 mg TIDCC M[facility]A Administration - Patient Studies Lab Studies: Lab Studies 11/08/16 11/08/16 11/08/16 Range/Units 16:13 11:15 07:19 WBC (4.8-10.8) K/uL RBC (4.40-5.90) Mil/uL Hgb (12.0-18.0) g/dL Hct (35.0-51.0) % MCV (80.0-94.0) fL MCH (27.0-31.0) pg MCHC (33.0-37.0) g/dL RDW (11.5-14.5) % Plt Count (130-400) K/uL MPV (7.2-11.7) fL Neut % (Auto) (50.0-75.0) % Lymph % (Auto) (20.0-40.0) % [place] % (Auto) (0.0-10.0) % Eos % (Auto) (0.0-4.0) % Baso % (Auto) (0.0-2.0) % Neut # (1.8-7.0) K/uL Lymph # (1.0-4.3) K/uL [place] # (0.0-0.8) K/uL Eos # (0.0-0.7) K/uL Baso # (0.0-0.2) K/uL Neutrophils % (Manual) (50-75) % Band Neutrophils % (0-2) % Lymphocytes % (Manual) (20-40) % Monocytes % (Manual) (0-10) % Eosinophils % (Manual) (0-4) % Platelet Estimate (NORMAL) Polychromasia Anisocytosis (manual) Macrocytosis (manual) Ovalocytes Sodium (132-148) mmol/L Potassium (3.6-5.2) mmol/L Chloride (98-107) mmol/L Carbon Dioxide (22-30) mmol/L Anion Gap (10-20) BUN (9-20) mg/dL Creatinine (0.8-1.5) MG/DL Est GFR ( Amer) Est GFR (Non-Af Amer) POC Glucose (mg/dL) 113 H 132 H 103 (65-110) mg/dL Random Glucose (75-110) mg/dL Calcium (8.6-10.4) mg/dl Phosphorus (2.5-4.5) mg/dL Magnesium (1.6-2.3) mg/dL Total Bilirubin (0.2-1.3) mg/dL AST (17-59) U/L ALT (21-72) U/L Alkaline Phosphatase (38-126) U/L Total Protein (6.3-8.3) g/dL Albumin (3.5-5.0) g/dL Globulin (2.2-3.9) gm/dL Albumin/Globulin Ratio (1.0-2.1) 11/08/16 11/08/16 11/07/16 Range/Units 06:31 06:31 21:27 WBC 17.5 H (4.8-10.8) K/uL RBC 2.69 L (4.40-5.90) Mil/uL Hgb 8.9 L (12.0-18.0) g/dL Hct 26.5 L (35.0-51.0) % MCV 98.6 H (80.0-94.0) fL MCH 33.0 H (27.0-31.0) pg MCHC 33.5 (33.0-37.0) g/dL RDW 14.8 H (11.5-14.5) % Plt Count 83 L (130-400) K/uL MPV 10.1 (7.2-11.7) fL Neut % (Auto) 83.4 H (50.0-75.0) % Lymph % (Auto) 6.1 L (20.0-40.0) % [place] % (Auto) 5.7 (0.0-10.0) % Eos % (Auto) 4.4 H (0.0-4.0) % Baso % (Auto) 0.4 (0.0-2.0) % Neut # 14.6 H (1.8-7.0) K/uL Lymph # 1.1 (1.0-4.3) K/uL [place] # 1.0 H (0.0-0.8) K/uL Eos # 0.8 H (0.0-0.7) K/uL Baso # 0.1 (0.0-0.2) K/uL Neutrophils % (Manual) 83 H (50-75) % Band Neutrophils % 4 H (0-2) % Lymphocytes % (Manual) 8 L (20-40) % Monocytes % (Manual) 4 (0-10) % Eosinophils % (Manual) 1 (0-4) % Platelet Estimate Decreased L (NORMAL) Polychromasia Slight Anisocytosis (manual) Slight Macrocytosis (manual) Slight Ovalocytes Slight Sodium 134 (132-148) mmol/L Potassium 3.8 (3.6-5.2) mmol/L Chloride 96 L (98-107) mmol/L Carbon Dioxide 23 (22-30) mmol/L Anion Gap 19 (10-20) BUN 59 H (9-20) mg/dL Creatinine 3.0 H (0.8-1.5) MG/DL Est GFR ( Amer) 27 Est GFR (Non-Af Amer) 23 POC Glucose (mg/dL) 127 H (65-110) mg/dL Random Glucose 81 (75-110) mg/dL Calcium 7.4 L (8.6-10.4) mg/dl Phosphorus 5.3 H (2.5-4.5) mg/dL Magnesium 1.7 (1.6-2.3) mg/dL Total Bilirubin 1.9 H (0.2-1.3) mg/dL AST 63 H (17-59) U/L ALT 80 H (21-72) U/L Alkaline Phosphatase 143 H (38-126) U/L Total Protein 6.0 L (6.3-8.3) g/dL Albumin 2.8 L (3.5-5.0) g/dL Globulin 3.3 (2.2-3.9) gm/dL Albumin/Globulin Ratio 0.8 L (1.0-2.1) Laboratory Results - last 24 hr 11/07/16 11/08/16 11/08/16 21:27 06:31 06:31 WBC 17.5 H RBC 2.69 L Hgb 8.9 L Hct 26.5 L MCV 98.6 H MCH 33.0 H MCHC 33.5 RDW 14.8 H Plt Count 83 L MPV 10.1 Neut % (Auto) 83.4 H Lymph % (Auto) 6.1 L [place] % (Auto) 5.7 Eos % (Auto) 4.4 H Baso % (Auto) 0.4 Neut # 14.6 H Lymph # 1.1 [place] # 1.0 H Eos # 0.8 H Baso # 0.1 Neutrophils % (Manual) 83 H Band Neutrophils % 4 H Lymphocytes % (Manual) 8 L Monocytes % (Manual) 4 Eosinophils % (Manual) 1 Platelet Estimate Decreased L Polychromasia Slight Anisocytosis (manual) Slight Macrocytosis (manual) Slight Ovalocytes Slight Sodium 134 Potassium 3.8 Chloride 96 L Carbon Dioxide 23 Anion Gap 19 BUN 59 H Creatinine 3.0 H Est GFR ( Amer) 27 Est GFR (Non-Af Amer) 23 POC Glucose (mg/dL) 127 H Random Glucose 81 Calcium 7.4 L Phosphorus 5.3 H Magnesium 1.7 Total Bilirubin 1.9 H AST 63 H ALT 80 H Alkaline Phosphatase 143 H Total Protein 6.0 L Albumin 2.8 L Globulin 3.3 Albumin/Globulin Ratio 0.8 L 11/08/16 11/08/16 11/08/16 07:19 11:15 16:13 WBC RBC Hgb Hct MCV MCH MCHC RDW Plt Count MPV Neut % (Auto) Lymph % (Auto) [place] % (Auto) Eos % (Auto) Baso % (Auto) Neut # Lymph # [place] # Eos # Baso # Neutrophils % (Manual) Band Neutrophils % Lymphocytes % (Manual) Monocytes % (Manual) Eosinophils % (Manual) Platelet Estimate Polychromasia Anisocytosis (manual) Macrocytosis (manual) Ovalocytes Sodium Potassium Chloride Carbon Dioxide Anion Gap BUN Creatinine Est GFR ( Amer) Est GFR (Non-Af Amer) POC Glucose (mg/dL) 103 132 H 113 H Random Glucose Calcium Phosphorus Magnesium Total Bilirubin AST ALT Alkaline Phosphatase Total Protein Albumin Globulin Albumin/Globulin Ratio Fingerstick Blood Sugar Results: 113 Review of Systems - Review of Systems All systems: reviewed and no additional remarkable complaints except Critical Care Progress Note - Nutrition Nutrition: Nutrition Category Date Time Status Consistent Carbohydrate [DIET] Diets 11/05/16 Breakfast Active Assessment/Plan (1) Pneumothorax Assessment and plan: 45yo M. Homeless with no know PMHx. Presented with strep bacteremia c/b acute renal failure requiring initiation of dialysis. Hospital course c/b ARDS with spontaneous pneumothorax now s/p pigtail catheter. Neuro: Alert and oriented 3 Pulm: Spontaneous pneumothorax secondary to recent episode of ARDS. Pigtail chest tube to wall suction. put chest tube to waterseal today, if pneumothorax persists patient will need pleurodesis, will consult thoracic surgery. CV: Hemodynamically stable Hem: leukocytosis increased today, will monitor. all old lines removed on . Renal: Acute kidney injury now requiring dialysis (MWF). Endo: No acute issues GI: Carb consistent diet ID: Sepsis resolved, recent strep bacteremia, continue IV antibiotics for 4 weeks since negative blood culture. IV meropenem and micafungin, to stop November 23. DVT proph - heparin subcutaneous GI proph - Pepcid walters for strict I/O's during acute illness Code status - full code Permacath (10/30/16) PICC line () Critical Care Time spent 35 minutes Multi-disciplinary rounds were performed with house staff, nursing, speech therapy, respiratory therapy, pharmacy and nutrition with integrated input from the primary team/attending and other consulting services. The documented time is cumulative and includes review of patient data/exams/labs/chart review and examination of the patient on rounds and throughout the day; time is exclusive of any procedures or teaching time. Current Visit: Yes Status: Acute
--- NOTE | 2016-11-08 18:00 | RAD ---
Chest x-ray single frontal view History: Assess pneumothorax. Comparison: 11/08/2016 Findings Left-sided chest tube in place. Persistent moderate loculated left-sided pleural effusion. Questionable tiny left-sided pneumothorax. Moderate to severe venous congestion with confluent consolidative changes at the left mid to lower lung zone. Dense somewhat spiculated scarring seen emanating from the right hilar region extending to the right infrahilar regions. Biapical pleural thickening with upper lobe granulomatous changes. Other lines and tubes in stable position. Cardiomegaly. Degenerative changes in the spine and shoulders. Impression: Left-sided chest tube in place. Persistent moderate loculated left-sided pleural effusion. Questionable tiny left-sided pneumothorax. Moderate to severe venous congestion with confluent consolidative changes at the left mid to lower lung zone. Dense somewhat spiculated scarring seen emanating from the right hilar region extending to the right infrahilar regions. Biapical pleural thickening with upper lobe granulomatous changes. Other lines and tubes in stable position. Cardiomegaly.
[2016-11-09] MEDS: Albuterol 0.083% Inhal Sol (2.5 mg/3 mL) UD INH SCH ×4 (01:16→19:31)
[2016-11-09] MEDS: Meropenem 500 MG in Sodium Chloride 0.9% 100 ML IVPB SCH ×2 (05:31→17:15)
[2016-11-09 06:25] LABS: BASO # 0.1 K/uL (0.0-0.2); BASO % 0.6 % (0.0-2.0); EOS # 0.8 K/uL (0.0-0.7); EOS % 4.8 % (0.0-4.0); LYMPH # 0.9 K/uL (1.0-4.3); LYMPH % 5.2 % (20.0-40.0); MEAN CELL VOLUME 98.8 fL (80.0-94.0); MEAN CORPUSCULAR HEMOGLOBIN 32.6 pg (27.0-31.0); MEAN PLATELET VOLUME 10.8 fL (7.2-11.7); MONO # 0.7 K/uL (0.0-0.8); MONO % 4.2 % (0.0-10.0); PLATELET COUNT 69 K/uL (130-400); RED CELL DISTRIBUTION WIDTH 15.3 % (11.5-14.5); WHITE BLOOD COUNT 16.7 K/uL (4.8-10.8)
[2016-11-09 07:05] LABS: MAGNESIUM 1.7 mg/dL (1.6-2.3); PHOSPHOROUS 5.5 mg/dL (2.5-4.5); POTASSIUM 3.6 mmol/L (3.6-5.2); TOTAL PROTEIN 5.8 g/dL (6.3-8.3)
[2016-11-09 07:21] LABS: ALB/GLOB RATIO 0.9 (1.0-2.1)
--- NOTE | 2016-11-09 07:48 | CP.PCM.PN ---
Subjective - Date & Time of Evaluation Date of Evaluation: 11/09/16 Time of Evaluation: 07:25 - Subjective Subjective: Hospitalist Progress Note (Patient was seen and examined at 7:25 AM 11/09/16) 45 year old male who presented to the ER here at [facility] on 10/21/16 intoxicated with complaints of cough and abdominal pain. He was found to be hypotensive, hypoxic, with RUL/RML Pneumonia. He eventually required intubation and ventilator support. He was also found to be in Acute Renal Failure and started receiving HD through Right Femoral Access on Wednesday10/23/16, 10/26, and 10/27/16. He was for Right Perm Cath with Dr. De La Vega for 10/28/16 however as his platelets declined, this was put on hold and patient was transfused 2 bags of platelets as per ICU Team. He became hypotensive on and therefore was started on Norepinephrine Drip, Albumin, and Solumedrol. Chest X Ray on 10/29/16 showed Left Pneumothorax and Spring Winder has placed a left sided chest tube pigtail catheter and repeat Chest X Ray showed re -expansion of the Left Lung. He had Right Perm Cath and Left Arm PICC Line placed 10/30/16. He was eventually extubated on 11/04/16. Patient was asleep but easily arousable. He is able to answer review of systems questions: NO chest pain, NO palpitations, States that his breathing is at "50% " when asked about any SOB/Dyspnea, NO dysphagia/odynophagia with eating/ drinking, NO abdominal pain, NO n/v/d/c (his last bowel movement was yesterday) , NO burning/pain with urination, NO lightheadedness/dizziness while in bed, NO headaches, NO new changes in vision/eye pain/loss of vision, NO new changes in hearing/ear pain/loss of hearing, NO paresthesias. GENERAL: Patient was asleep but easily arousable. Believes it is October 2016. Knows who he is, where he is, and why he is hear. He was told today's date. NO apparent distress at this time and speaking in full sentences with no signs of respiratory distress. HEENT: NCA, Pupils are round/reactive to light, Slight Scleral Incterus, NO lymphadenopathy, NO JVD, NO thyromegaly, Nasal turbinates are nonerythematous/ nonedematous/moist, Oral mucosa is dry. Cardio: NS1 and NS2, Systolic Ejection heard best along left sternal border Resp: Decreased breath sounds left mid to lower lung cameron otherwise CTA GI: BSx4, Distention, Liver and Spleen could not be adequately palpated secondary to distention, Soft, NT, NO guarding/rebound tenderness Ext: Pulses are strong and equal, Capillary Refill is 2 seconds, NO cyanosis, NO edema, Patches of Psoriasis on the bilateral elbows/bilateral anterior lower legs Neuro: CN II through XII are grossly intact Skin: Bilateral Groin fungal rash improved Assessment and Plan (1) Alcohol withdrawal Assessment & Plan: NO signs of DTs at the time of my exam Thiamine 100 mg IV 1x/day Folic Acid 1 mg IV 1x/day Status: Acute (2) Hypoxemia/Respiratory Distress Assessment & Plan: Patient was extubated on 11/04/16 and is breathing comfortably on O2 NC Status: Acute (3). Left Pneumothorax/Left Loculated Effusion As per Chest X Ray 11/08/16: moderate loculated left sided pleuaral effusion, moderate to severe venous congestion with confluent consolidative changes at the left mid to lower lung zone, upper lobe granulomatous changes Chest Tube in Place on waterseal (4)Sepsis Secondary to Pneumonia and Bacteremia Assessment & Plan: Meropeneam 500 mg IV Q12H Micofungin 100 mg IV Q24H Blood Culture 10/21/16 showed S. pneumoniae Blood Culture 10/26/16 showed Coag Neg Staph Repeat Blood Cultures on 10/28/16 and 11/01/16 were negative at 5 days Sputum Culture 11/01/[address] Aleyda Bowers Status: Acute (5). Hypotension Resolved B/P is stable (6) Seizure disorder Assessment & Plan: Secondary to alcohol withdrawal. NO recent seizure reported Neurology Dr. Pineda Status: Acute (7) Thrombocytopenia Assessment & Plan: Likely Secondary to alcohol abuse. Heparin Abs were also ordered on 10/30/16 and this is NEGATIVE Currently at 69 Status: Chronic (8) Psoriasis Status: Acute (9) Renal failure Assessment & Plan: Renal U/S 10/24/16 showed nonobstructing calculus upper/midpole Right Kidney and Abdominal Ascites Hepatitis Panel is negative Patient was receiving HD through Right Femoral Catheter and this was removed on 10/31/16 S/P Right Chest Perm Cath placement by Vascular Surgeon Dr. De La Vega . HD through Right Chest Perm Cath as per Nephrology Dr. Merida/Derian Sevelamer 800mg PO TID Status: Acute (10). Anemia Likely Secondary to Chronic Alcohol Use and Renal Failure Stool Occult Blood 10/21/16 is negative HgB/Hct today 11/09/16 is stable at 8.2/25.0 Procrit M-W-F 10,000 Units IV Ferrlecit 125 mg IV 1x/day Continue to monitor (11). Hypokalemia Resolved (12). Bilateral Groin Fungal Rash Nystatin Powder 2x/day for 2 weeks started on 10/26/16 and last dose will be today 11/09/16 (13). Elevated LFTs Likely secondary to history of Alcohol Abuse Monitor (14). Prophylactic Measures Bilateral SCDs Protonix 40 mg IV 1x/day Acetaminophen 650 mg PO Q6H PRN Temp/Fever Florastor 250 mg PO 2x/day Albuterol 2.5 mg INH Q6H Novolin Regular ISS with Accuchecks NO ANTICOAGULATION CONSIDERING THE ANEMIA AND THE THROMBOCYTOPENIA. Von Burkett D.O. Objective - Vital Signs/Intake and Output Vital Signs (last 24 hours): Temp Pulse Resp BP Pulse Ox 99.3 F 87 14 114/73 96 11/09/16 05:00 11/09/16 07:00 11/09/16 07:00 11/09/16 06:37 11/09/16 07:00 Intake and Output: 11/09/16 11/09/16 06:59 18:59 Intake Total 500 0 Output Total 850 Balance -350 0 - Medications Medications: Current Medications Acetaminophen (Tylenol 650mg/20.3ml Solution Ud) 650 mg PO Q6 PRN PRN Reason: Temperature Last Admin: 11/02/16 23:46 Dose: 650 mg Albumin Human (Albumin Human 25% (12.5 Gm/50 Ml)) 12.5 gm IV Q8H MIRA Last Admin: 10/27/16 12:01 Dose: Not Given Albuterol Sulfate (Albuterol 0.083% Inhal Nikky (2.5 Mg/3 Ml) Ud) 2.5 mg INH RQ6 MIRA Last Admin: 11/09/16 07:36 Dose: 2.5 mg Epoetin Humphrey (Procrit) 10,000 unit IV MWF [facility] Last Admin: 11/06/16 22:23 Dose: 10,000 unit Ferric Sodium Gluconate Complex (Ferrlecit) 125 mg IVPB DAILY [facility] Stop: 11/10/16 10:13 Last Admin: 11/08/16 09:35 Dose: 125 mg Micafungin Sodium 100 mg/ (Sodium Chloride) 100 mls @ 100 mls/hr IV Q24H [facility] Last Admin: 11/08/16 16:41 Dose: 100 mls/hr Meropenem 500 mg/ Sodium (Chloride) 100 mls @ 100 mls/hr IVPB Q12H [facility] Last Admin: 11/09/16 05:31 Dose: 100 mls/hr Insulin Human Regular (Novolin R) 0 unit SC ACHS [facility] PRN Reason: Protocol Last Admin: 11/08/16 21:52 Dose: Not Given Lactic Acid (Lac-Hydrin 12% Lotion (225 G)) 0 gm EXT BID [facility] Last Admin: 11/08/16 17:53 Dose: 1 applic Multivitamins (Hexavitamin) 1 tab PO DAILY [facility] Last Admin: 11/08/16 09:33 Dose: 1 tab Pantoprazole Sodium (Protonix Ec Tab) 40 mg PO DAILY [facility] Last Admin: 11/08/16 09:33 Dose: 40 mg Sevelamer Carbonate (Renvela) 800 mg PO TIDCC [facility] Last Admin: 11/08/16 16:40 Dose: 800 mg - Labs Labs: 11/09/16 06:16 11/09/16 06:15 PT 17.7 SECONDS (9.7-12.2) H 10/29/16 06:22 INR 1.6 10/29/16 06:22 APTT 30 SECONDS (21-34) 10/29/16 06:22
[2016-11-09] MEDS: (Novolin R) Insulin Human Regular 100 units/ml vial SC SCH ×4 (08:20→21:25)
[2016-11-09 08:36] LABS: EOSINOPHIL 6 % (0-4); NEUTROPHIL 77 % (50-75); REACTIVE LYMPHOCYTES 1 % (0-0); TOTAL CELLS COUNTED 100
--- NOTE | 2016-11-09 08:51 | RAD ---
Chest x-ray single frontal view History: Pneumothorax. Comparison: 11/08/2016 Findings: Lines and tubes in stable position with persistent left basilar pleural chest tube. Persistent moderate loculated left pleural effusion with question tiny left-sided pneumothorax. Prominent diffuse increased lung markings throughout both lung cameron. Confluent consolidative changes seen within the left mid to lower lung zone as well as within the right hilar and infrahilar region. Elevated right hemidiaphragm. Cardiomegaly. Degenerative changes in the spine and shoulders. Impression: No significant interval change.
[2016-11-09] MEDS: Saccharomyces Boulardi 250 mg Cap PO SCH ×2 (09:34→19:28)
[2016-11-09] MEDS: Multiple Vitamins Tab PO SCH (09:34)
[2016-11-09] MEDS: Pantoprazole 40 mg EC Tab PO SCH (09:34)
[2016-11-09] MEDS: Ammonium Lactate 12% Lotion (225 g) EXT SCH ×2 (09:35→17:15)
[2016-11-09] MEDS: Ferric Sodium Gluconat Complex 62.5 mg/5 ml Vial IVPB SCH (09:35)
--- NOTE | 2016-11-09 10:15 | CP.PCM.PN ---
Subjective - Date & Time of Evaluation Date of Evaluation: 11/09/16 Time of Evaluation: 10:00 - Subjective Subjective: Sitting up in chair. No SOB Objective - Vital Signs/Intake and Output Vital Signs (last 24 hours): Temp Pulse Resp BP Pulse Ox 99.6 F 101 H 21 111/67 94 L 11/09/16 08:00 11/09/16 10:00 11/09/16 10:00 11/09/16 09:36 11/09/16 10:00 Intake and Output: 11/09/16 11/09/16 06:59 18:59 Intake Total 500 200 Output Total 850 200 Balance -350 0 - Medications Medications: Current Medications Acetaminophen (Tylenol 650mg/20.3ml Solution Ud) 650 mg PO Q6 PRN PRN Reason: Temperature Last Admin: 11/02/16 23:46 Dose: 650 mg Albumin Human (Albumin Human 25% (12.5 Gm/50 Ml)) 12.5 gm IV Q8H [facility] Last Admin: 10/27/16 12:01 Dose: Not Given Albuterol Sulfate (Albuterol 0.083% Inhal Nikky (2.5 Mg/3 Ml) Ud) 2.5 mg INH RQ6 [facility] Last Admin: 11/09/16 07:36 Dose: 2.5 mg Epoetin Humphrey (Procrit) 10,000 unit IV MWF [facility] Last Admin: 11/06/16 22:23 Dose: 10,000 unit Ferric Sodium Gluconate Complex (Ferrlecit) 125 mg IVPB DAILY [facility] Stop: 11/10/16 10:13 Last Admin: 11/09/16 09:35 Dose: 125 mg Micafungin Sodium 100 mg/ (Sodium Chloride) 100 mls @ 100 mls/hr IV Q24H [facility] Last Admin: 11/08/16 16:41 Dose: 100 mls/hr Meropenem 500 mg/ Sodium (Chloride) 100 mls @ 100 mls/hr IVPB Q12H [facility] Last Admin: 11/09/16 05:31 Dose: 100 mls/hr Insulin Human Regular (Novolin R) 0 unit SC ACHS [facility] PRN Reason: Protocol Last Admin: 11/09/16 08:20 Dose: Not Given Lactic Acid (Lac-Hydrin 12% Lotion (225 G)) 0 gm EXT BID [facility] Last Admin: 11/09/16 09:35 Dose: 1 applic Multivitamins (Hexavitamin) 1 tab PO DAILY [facility] Last Admin: 11/09/16 09:34 Dose: 1 tab Pantoprazole Sodium (Protonix Ec Tab) 40 mg PO DAILY [facility] Last Admin: 11/09/16 09:34 Dose: 40 mg Saccharomyces Boulardii (Florastor) 250 mg PO BID [facility] Last Admin: 11/09/16 09:34 Dose: 250 mg Sevelamer Carbonate (Renvela) 800 mg PO TIDCC [facility] Last Admin: 11/09/16 08:25 Dose: 800 mg - Labs Labs: 11/09/16 06:16 11/09/16 06:15 PT 17.7 SECONDS (9.7-12.2) H 10/29/16 06:22 INR 1.6 10/29/16 06:22 APTT 30 SECONDS (21-34) 10/29/16 06:22 - Respiratory Exam Additional comments: Lungs clear - Cardiovascular Exam Cardiovascular Exam: Tachycardia Additional comments: sinus tach 102/min - GI/Abdominal Exam GI & Abdominal Exam: Soft - Extremities Exam Additional comments: No edema Assessment and Plan - Assessment and Plan (Free Text) Assessment: Resolving acute renal failure Sepsis Pneumonia, Pleural effusion Alcoholism Plan: Will hold dialysis today & monitor renal function closely Continue Abx,Continue phophate binder for now
--- NOTE | 2016-11-09 12:00 | RAD ---
HISTORY: PICC COMPARISON: Chest x-ray performed 11/09/16 TECHNIQUE: Chest, one view. FINDINGS: Right-sided dialysis catheter with distal tips at the cavoatrial junction. Left-sided PICC extends to the SVC. LUNGS: Left costophrenic angle incompletely imaged. Small left pleural effusion. Central vascular congestion. No definite pneumothorax. CARDIOVASCULAR: Cardiomegaly. OSSEOUS STRUCTURES: Degenerative changes. VISUALIZED UPPER ABDOMEN: Unremarkable. OTHER FINDINGS: None. IMPRESSION: Support lines and tubes as above. Cardiomegaly. Central vascular congestion, slightly decreased in extent. Small left pleural effusion.
--- NOTE | 2016-11-09 15:49 | CP.CCUPN ---
CCU Subjective - Physician Review Subjective (Free Text): Patient was seen and examined at bedside in the morning. Patient is alert and oriented x3. Patient reports having no complaints except for feeling short of breath sometimes. Patient denies chest pain, abdominal pain, nausea, vomiting, diarrhea, constipation, fevers, dysuria, and headaches. 11/09/16 15:46 CCU Objective - Vital Signs / Intake & Output Vital Signs (Last 4 hours): Vital Signs Temp Pulse Resp BP Pulse Ox 11/09/16 15:37 94 H 22 115/71 94 L 11/09/16 15:10 100 H 11/09/16 14:36 93 H 21 112/74 93 L 11/09/16 14:00 104 H 11 L 93 L 11/09/16 13:36 97 H 19 117/77 93 L 11/09/16 13:00 98.4 F 105 H 20 99 11/09/16 12:36 103 H 20 120/72 97 11/09/16 12:00 99 H 13 Intake and Output (Last 8hrs): Intake & Output 11/09/16 11/09/16 11/09/16 06:59 14:59 22:59 Intake Total 250 500 100 Output Total 450 400 Balance -200 100 100 Weight 180 lb 15.992 oz Intake: Oral 250 500 100 Output: Urine 450 400 Urethral (Walters) 450 Urine, Voided 400 Other: # Bowel Movements 0 1 - Physical Exam Head: Positive for: Atraumatic, Normocephalic Extroacular Muscles: Positive for: EOMI Mouth: Positive for: Moist Mucous Membranes Respiratory/Chest: Positive for: Decreased Breath Sounds (L>R) Cardiovascular: Positive for: Regular Rate and Rhythm, Normal S1, S2 Abdomen: Positive for: Distention, Normal Bowel Sounds Genitourinary Male: Positive for: Other (walters in place) Upper Extremity: Negative for: Edema Lower Extremity: Negative for: Edema Neurological: Positive for: Other (tremors) Skin: Positive for: Warm, Dry, Normal Color, Other (Psoriasis located on b/l knees, bilateral upper extremities) Psychiatric: Positive for: Alert, Oriented x 3 - Medications Active Medications: Active Medications Generic Name Dose Route Start Last Admin Trade Name Freq PRN Reason Stop Dose Admin Acetaminophen 650 mg 10/25/16 11:56 11/02/16 23:46 Tylenol 650mg/20.3ml Solution Ud PO 650 mg Q6 PRN Administration Temperature Albumin Human 12.5 gm 10/26/16 18:45 10/27/16 12:01 Albumin Human 25% (12.5 Gm/50 Ml) IV Not Given Q8H MIRA Albuterol Sulfate 2.5 mg 10/31/16 14:00 11/09/16 13:59 Albuterol 0.083% Inhal Nikky (2.5 Mg/3 Ml) Ud INH 2.5 mg RQ6 MIRA Administration Epoetin Humphrey 10,000 unit 11/02/16 14:45 11/06/16 22:23 Procrit IV 10,000 unit MWF MIRA Administration Ferric Sodium Gluconate Complex 125 mg 11/02/16 10:12 11/09/16 09:35 Ferrlecit IVPB 11/10/16 10:13 125 mg DAILY MIRA Administration Micafungin Sodium 100 mg/ 100 mls @ 100 mls/hr 11/01/16 17:30 11/08/16 16:41 Sodium Chloride IV 100 mls/hr Q24H MIRA Administration Meropenem 500 mg/ Sodium 100 mls @ 100 mls/hr 11/01/16 17:45 11/09/16 05:31 Chloride IVPB 100 mls/hr Q12H MIRA Administration Insulin Human Regular 0 unit 11/05/16 16:30 11/09/16 11:38 Novolin R SC Not Given ACHS [facility] Protocol Lactic Acid 0 gm 10/22/16 13:00 11/09/16 09:35 Lac-Hydrin 12% Lotion (225 G) EXT 1 applic BID MIRA Administration Multivitamins 1 tab 11/06/16 10:00 11/09/16 09:34 Hexavitamin PO 1 tab DAILY MIRA Administration Pantoprazole Sodium 40 mg 11/06/16 10:00 11/09/16 09:34 Protonix Ec Tab PO 40 mg DAILY MIRA Administration Saccharomyces Boulardii 250 mg 11/09/16 10:00 11/09/16 09:34 Florastor PO 250 mg BID MIRA Administration Sevelamer Carbonate 800 mg 11/06/16 12:00 11/09/16 12:41 Renvela PO 800 mg TIDCC MIRA Administration - Patient Studies Lab Studies: Lab Studies 08/07/17 08/07/17 08/07/17 Range/Units 11:34 07:40 06:16 WBC 16.7 H (4.8-10.8) K/uL RBC 2.53 L (4.40-5.90) Mil/uL Hgb 8.2 L (12.0-18.0) g/dL Hct 25.0 L (35.0-51.0) % MCV 98.8 H (80.0-94.0) fL MCH 32.6 H (27.0-31.0) pg MCHC 33.0 (33.0-37.0) g/dL RDW 15.3 H (11.5-14.5) % Plt Count 69 L (130-400) K/uL MPV 10.8 (7.2-11.7) fL Neut % (Auto) 85.2 H (50.0-75.0) % Lymph % (Auto) 5.2 L (20.0-40.0) % Converse % (Auto) 4.2 (0.0-10.0) % Eos % (Auto) 4.8 H (0.0-4.0) % Baso % (Auto) 0.6 (0.0-2.0) % Neut # 14.2 H (1.8-7.0) K/uL Lymph # 0.9 L (1.0-4.3) K/uL Converse # 0.7 (0.0-0.8) K/uL Eos # 0.8 H (0.0-0.7) K/uL Baso # 0.1 (0.0-0.2) K/uL Neutrophils % (Manual) 77 H (50-75) % Band Neutrophils % 8 H (0-2) % Lymphocytes % (Manual) 3 L (20-40) % Reactive Lymphs % 1 H (0-0) % Monocytes % (Manual) 5 (0-10) % Eosinophils % (Manual) 6 H (0-4) % Platelet Estimate Decreased L (NORMAL) Anisocytosis (manual) Slight Sodium (132-148) mmol/L Potassium (3.6-5.2) mmol/L Chloride (98-107) mmol/L Carbon Dioxide (22-30) mmol/L Anion Gap (10-20) BUN (9-20) mg/dL Creatinine (0.8-1.5) MG/DL Est GFR ( Amer) Est GFR (Non-Af Amer) POC Glucose (mg/dL) 117 H 125 H (65-110) mg/dL Random Glucose (75-110) mg/dL Calcium (8.6-10.4) mg/dl Phosphorus (2.5-4.5) mg/dL Magnesium (1.6-2.3) mg/dL Total Bilirubin (0.2-1.3) mg/dL AST (17-59) U/L ALT (21-72) U/L Alkaline Phosphatase (38-126) U/L Total Protein (6.3-8.3) g/dL Albumin (3.5-5.0) g/dL Globulin (2.2-3.9) gm/dL Albumin/Globulin Ratio (1.0-2.1) 11/09/16 11/08/16 11/08/16 Range/Units 06:15 21:51 16:13 WBC (4.8-10.8) K/uL RBC (4.40-5.90) Mil/uL Hgb (12.0-18.0) g/dL Hct (35.0-51.0) % MCV (80.0-94.0) fL MCH (27.0-31.0) pg MCHC (33.0-37.0) g/dL RDW (11.5-14.5) % Plt Count (130-400) K/uL MPV (7.2-11.7) fL Neut % (Auto) (50.0-75.0) % Lymph % (Auto) (20.0-40.0) % Converse % (Auto) (0.0-10.0) % Eos % (Auto) (0.0-4.0) % Baso % (Auto) (0.0-2.0) % Neut # (1.8-7.0) K/uL Lymph # (1.0-4.3) K/uL Converse # (0.0-0.8) K/uL Eos # (0.0-0.7) K/uL Baso # (0.0-0.2) K/uL Neutrophils % (Manual) (50-75) % Band Neutrophils % (0-2) % Lymphocytes % (Manual) (20-40) % Reactive Lymphs % (0-0) % Monocytes % (Manual) (0-10) % Eosinophils % (Manual) (0-4) % Platelet Estimate (NORMAL) Anisocytosis (manual) Sodium 133 (132-148) mmol/L Potassium 3.6 (3.6-5.2) mmol/L Chloride 95 L (98-107) mmol/L Carbon Dioxide 23 (22-30) mmol/L Anion Gap 19 (10-20) BUN 60 H (9-20) mg/dL Creatinine 2.9 H (0.8-1.5) MG/DL Est GFR ( Amer) 28 Est GFR (Non-Af Amer) 24 POC Glucose (mg/dL) 147 H 113 H (65-110) mg/dL Random Glucose 82 (75-110) mg/dL Calcium 7.0 L (8.6-10.4) mg/dl Phosphorus 5.5 H (2.5-4.5) mg/dL Magnesium 1.7 (1.6-2.3) mg/dL Total Bilirubin 2.0 H (0.2-1.3) mg/dL AST 41 (17-59) U/L ALT 65 (21-72) U/L Alkaline Phosphatase 139 H (38-126) U/L Total Protein 5.8 L (6.3-8.3) g/dL Albumin 2.7 L (3.5-5.0) g/dL Globulin 3.1 (2.2-3.9) gm/dL Albumin/Globulin Ratio 0.9 L (1.0-2.1) Laboratory Results - last 24 hr 11/08/16 11/08/16 11/09/16 16:13 21:51 06:15 WBC RBC Hgb Hct MCV MCH MCHC RDW Plt Count MPV Neut % (Auto) Lymph % (Auto) Converse % (Auto) Eos % (Auto) Baso % (Auto) Neut # Lymph # Converse # Eos # Baso # Neutrophils % (Manual) Band Neutrophils % Lymphocytes % (Manual) Reactive Lymphs % Monocytes % (Manual) Eosinophils % (Manual) Platelet Estimate Anisocytosis (manual) Sodium 133 Potassium 3.6 Chloride 95 L Carbon Dioxide 23 Anion Gap 19 BUN 60 H Creatinine 2.9 H Est GFR ( Amer) 28 Est GFR (Non-Af Amer) 24 POC Glucose (mg/dL) 113 H 147 H Random Glucose 82 Calcium 7.0 L Phosphorus 5.5 H Magnesium 1.7 Total Bilirubin 2.0 H AST 41 ALT 65 Alkaline Phosphatase 139 H Total Protein 5.8 L Albumin 2.7 L Globulin 3.1 Albumin/Globulin Ratio 0.9 L 11/09/16 11/09/16 11/09/16 06:16 07:40 11:34 WBC 16.7 H RBC 2.53 L Hgb 8.2 L Hct 25.0 L MCV 98.8 H MCH 32.6 H MCHC 33.0 RDW 15.3 H Plt Count 69 L MPV 10.8 Neut % (Auto) 85.2 H Lymph % (Auto) 5.2 L Converse % (Auto) 4.2 Eos % (Auto) 4.8 H Baso % (Auto) 0.6 Neut # 14.2 H Lymph # 0.9 L Converse # 0.7 Eos # 0.8 H Baso # 0.1 Neutrophils % (Manual) 77 H Band Neutrophils % 8 H Lymphocytes % (Manual) 3 L Reactive Lymphs % 1 H Monocytes % (Manual) 5 Eosinophils % (Manual) 6 H Platelet Estimate Decreased L Anisocytosis (manual) Slight Sodium Potassium Chloride Carbon Dioxide Anion Gap BUN Creatinine Est GFR ( Amer) Est GFR (Non-Af Amer) POC Glucose (mg/dL) 125 H 117 H Random Glucose Calcium Phosphorus Magnesium Total Bilirubin AST ALT Alkaline Phosphatase Total Protein Albumin Globulin Albumin/Globulin Ratio Fingerstick Blood Sugar Results: 117 Review of Systems - Constitutional Constitutional: absent: Fever - Cardiovascular Cardiovascular: Dyspnea. absent: Chest Pain, Edema - Respiratory Respiratory: Dyspnea. absent: Cough - Gastrointestinal Gastrointestinal: absent: Abdominal Pain, Constipation, Diarrhea, Nausea, Vomiting - Genitourinary Genitourinary: absent: Dysuria - Neurological Neurological: Tremor. absent: Dizziness Critical Care Progress Note - Nutrition Nutrition: Nutrition Category Date Time Status Consistent Carbohydrate [DIET] Diets 11/05/16 Breakfast Active Assessment/Plan (1) Pneumothorax Assessment and plan: 45yo M. Homeless with no know PMHx. Presented with strep bacteremia c/b acute renal failure requiring initiation of dialysis. Hospital course c/b ARDS with spontaneous pneumothorax now s/p pigtail catheter. Chest CT ordered to determine status of pneumothorax. Patient is to continue course of anitiobiotics via PICC line for total of 4 weeks (to end on 11/23/16). Neuro: Alert and oriented 3 Pulm: Spontaneous pneumothorax secondary to recent episode of ARDS. - Pigtail chest tube to wall suction; chest tube to waterseal - CXR: small pleural effusions - CT of chest: f/u CV: Hemodynamically stable Hem: leukocytosis decreased today, will monitor. Renal: Acute kidney injury now requiring dialysis (MWF). - Holding dialysis today--> monitor closely Endo: No acute issues GI: Carb consistent diet ID: Sepsis resolved, recent strep bacteremia, continue IV antibiotics for 4 weeks since negative blood culture. IV meropenem and micafungin, to stop November 23/2017. Prophylaxis: - DVT- heparin subcutaneous - GI- Pepcid - Walters for strict I/O's during acute illness Permacath (10/30/16) PICC line () Code status - full code Current Visit: Yes Status: Acute
--- NOTE | 2016-11-09 16:26 | CT ---
PROCEDURE: CT Chest without contrast HISTORY: assess for pneumonia COMPARISON: 10/23/2016. TECHNIQUE: Contiguous axial images were obtained through the chest without intravenous contrast enhancement. Sagittal and coronal reconstructions were performed. Radiation dose (DLP): 817.74 mGy-cm. This CT exam was performed using one or more of the following dose reduction techniques: Automated exposure control, adjustment of the mA and/or kV according to patient size, and/or use of iterative reconstruction technique. FINDINGS: LUNGS: Interval improvement and pulmonary edema. Residual consolidative changes both lower lobes and right middle lobe. Less pronounced changes with considerable improvement in upper lobe infiltrates. MEDIASTINUM: Unremarkable thoracic aorta. No aneurysm. Normal sized heart. Main pulmonary artery unremarkable. No vascular congestion. No lymphadenopathy. PLEURA: Persistent left pleural effusion with compressive atelectasis. BONES: No fracture. No destructive lesion. UPPER ABDOMEN: Cirrhotic liver, splenomegaly. OTHER FINDINGS: Venous access catheter in good position. Stable, satisfactory position ventilatory, vascular and nasogastric apparatus the patient has been extubated. IMPRESSION: 1. Substantial decrease in multifocal airspace disease suggesting improvement in pulmonary edema. 2. Persistent left pleural effusion which is decreased modestly compared to the prior study. Underlying compressive atelectasis left lower lobe.
[2016-11-09] MEDS: Micafungin 100 MG in Sodium Chloride 0.9% 100 ML IV SCH (16:31)
[2016-11-10] MEDS: Albuterol 0.083% Inhal Sol (2.5 mg/3 mL) UD INH SCH ×2 (01:48→07:45)
[2016-11-10] MEDS: Meropenem 500 MG in Sodium Chloride 0.9% 100 ML IVPB SCH ×2 (05:12→21:40)
[2016-11-10 06:32] LABS: BASO # 0.1 K/uL (0.0-0.2); BASO % 0.5 % (0.0-2.0); EOS # 0.9 K/uL (0.0-0.7); EOS % 5.5 % (0.0-4.0); HEMATOCRIT 23.8 % (35.0-51.0); LYMPH # 0.9 K/uL (1.0-4.3); LYMPH % 5.3 % (20.0-40.0); MEAN CELL VOLUME 98.6 fL (80.0-94.0); MEAN CORPUSCULAR HEMOGLOBIN 33.2 pg (27.0-31.0); MEAN CORPUSCULAR HGB CONC 33.7 g/dL (33.0-37.0); MEAN PLATELET VOLUME 10.7 fL (7.2-11.7); MONO # 0.6 K/uL (0.0-0.8); MONO % 3.6 % (0.0-10.0); PLATELET COUNT 66 K/uL (130-400); RED CELL DISTRIBUTION WIDTH 15.6 % (11.5-14.5); WHITE BLOOD COUNT 16.4 K/uL (4.8-10.8)
[2016-11-10 06:50] LABS: ALB/GLOB RATIO 0.8 (1.0-2.1); BILIRUBIN,TOTAL 2.2 mg/dL (0.2-1.3); CALCIUM 7.1 mg/dl (8.6-10.4); MAGNESIUM 1.7 mg/dL (1.6-2.3); PHOSPHOROUS 5.2 mg/dL (2.5-4.5); POTASSIUM 3.5 mmol/L (3.6-5.2); TOTAL PROTEIN 5.9 g/dL (6.3-8.3)
[2016-11-10] MEDS: (Novolin R) Insulin Human Regular 100 units/ml vial SC SCH ×4 (07:25→22:10)
[2016-11-10 08:41] LABS: EOSINOPHIL 6 % (0-4); NEUTROPHIL 81 % (50-75); TOTAL CELLS COUNTED 100
--- NOTE | 2016-11-10 09:11 | RAD ---
Chest x-ray History: Pneumothorax. Comparison: Chest CT dated 11/09/2016 Findings: Lines and tubes in stable position. Persistent moderate loculated left pleural effusion with prominent consolidative changes seen throughout the left lung as well as the right mid to lower lung zone. Suggestion of some pleural thickening at the right costophrenic angle which may represent a small right pleural effusion. This is new since the prior study. In addition, the consolidative changes at the right mid to lower lung zone appear increased since the prior study. No evidence of discrete pneumothorax. Cardiomegaly. Degenerative changes in the spine and shoulders. Impression: Persistent moderate loculated left pleural effusion with prominent consolidative changes seen throughout the left lung as well as the right mid to lower lung zone. Suggestion of some pleural thickening at the right costophrenic angle which may represent a small right pleural effusion. This is new since the prior study. In addition, the consolidative changes at the right mid to lower lung zone appear increased since the prior study.
[2016-11-10] MEDS: Pantoprazole 40 mg EC Tab PO SCH (09:34)
[2016-11-10] MEDS: Saccharomyces Boulardi 250 mg Cap PO SCH ×2 (09:34→19:35)
[2016-11-10] MEDS: Multiple Vitamins Tab PO SCH (09:34)
[2016-11-10] MEDS: Ammonium Lactate 12% Lotion (225 g) EXT SCH ×2 (09:35→17:09)
[2016-11-10] MEDS: Ferric Sodium Gluconat Complex 62.5 mg/5 ml Vial IVPB SCH (09:41)
--- NOTE | 2016-11-10 11:14 | CP.PCM.PN ---
Subjective - Date & Time of Evaluation Date of Evaluation: 11/10/16 Time of Evaluation: 10:00 - Subjective Subjective: Alert & oriented No respiratory distress Objective - Vital Signs/Intake and Output Vital Signs (last 24 hours): Temp Pulse Resp BP Pulse Ox 99.6 F 97 H 19 129/82 92 L 11/10/16 08:00 11/10/16 11:00 11/10/16 11:00 11/10/16 10:46 11/10/16 11:00 Intake and Output: 11/10/16 11/10/16 06:59 18:59 Intake Total 650 300 Output Total 650 200 Balance 0 100 - Medications Medications: Current Medications Acetaminophen (Tylenol 650mg/20.3ml Solution Ud) 650 mg PO Q6 PRN PRN Reason: Temperature Last Admin: 11/02/16 23:46 Dose: 650 mg Albumin Human (Albumin Human 25% (12.5 Gm/50 Ml)) 12.5 gm IV Q8H COUNT INCLUDES THE [facility] Last Admin: 10/27/16 12:01 Dose: Not Given Albuterol Sulfate (Albuterol 0.083% Inhal Nikky (2.5 Mg/3 Ml) Ud) 2.5 mg INH RQ6 COUNT INCLUDES THE [facility] Last Admin: 11/10/16 07:45 Dose: 2.5 mg Epoetin Humphrey (Procrit) 10,000 unit IV MWF COUNT INCLUDES THE [facility] Last Admin: 11/06/16 22:23 Dose: 10,000 unit Micafungin Sodium 100 mg/ (Sodium Chloride) 100 mls @ 100 mls/hr IV Q24H COUNT INCLUDES THE [facility] Last Admin: 11/09/16 16:31 Dose: 100 mls/hr Meropenem 500 mg/ Sodium (Chloride) 100 mls @ 100 mls/hr IVPB Q12H COUNT INCLUDES THE [facility] Last Admin: 11/10/16 05:12 Dose: 100 mls/hr Insulin Human Regular (Novolin R) 0 unit SC ACHS MIRA PRN Reason: Protocol Last Admin: 11/10/16 07:25 Dose: Not Given Lactic Acid (Lac-Hydrin 12% Lotion (225 G)) 0 gm EXT BID COUNT INCLUDES THE [facility] Last Admin: 11/10/16 09:35 Dose: 1 applic Multivitamins (Hexavitamin) 1 tab PO DAILY COUNT INCLUDES THE [facility] Last Admin: 11/10/16 09:34 Dose: 1 tab Pantoprazole Sodium (Protonix Ec Tab) 40 mg PO DAILY COUNT INCLUDES THE [facility] Last Admin: 11/10/16 09:34 Dose: 40 mg Saccharomyces Boulardii (Florastor) 250 mg PO BID COUNT INCLUDES THE [facility] Last Admin: 11/10/16 09:34 Dose: 250 mg Sevelamer Carbonate (Renvela) 800 mg PO TIDCC COUNT INCLUDES THE [facility] Last Admin: 11/10/16 08:10 Dose: 800 mg - Labs Labs: 11/10/16 06:24 11/10/16 06:24 PT 17.7 SECONDS (9.7-12.2) H 10/29/16 06:22 INR 1.6 10/29/16 06:22 APTT 30 SECONDS (21-34) 10/29/16 06:22 - Respiratory Exam Additional comments: Clear anteriorly, Decreased BS over lt lower lung Chest tube in place - Cardiovascular Exam Cardiovascular Exam: REGULAR RHYTHM Additional comments: 90/min - GI/Abdominal Exam GI & Abdominal Exam: Soft - Extremities Exam Additional comments: No edema or cyanosis Assessment and Plan - Assessment and Plan (Free Text) Assessment: Resolving RUPALI Off dialysis Pneumonia, lt loculated pleural effusion Spontaneous Lt Ptx, S/P chest tube Anemia Plan: Continue to monitor renal function On Epogen, check iron profile
[2016-11-10 12:25] LABS: IRON 66 ug/dL (49-181)
--- NOTE | 2016-11-10 17:01 | RAD ---
HISTORY: follow up COMPARISON: 11/10/2016 at 0637 hour FINDINGS: LUNGS: The diffuse opacification the left hemithorax is consistent with diffuse left sided pulmonary edema and diffuse infiltrates and/or diffuse coalescing areas of atelectasis. The left pleural reaction/ thickening/pleural flow fluid appearance along the left lateral hemithorax and at the left costophrenic angle is similar. The right costophrenic angle pleural effusion has cleared PLEURA: No pneumothorax apparent. Left pleural base pathology/pleural fluid with or without prior CT suggested loculation is similar CARDIOVASCULAR: Mild cardiomegaly OSSEOUS STRUCTURES: No significant abnormalities. VISUALIZED UPPER ABDOMEN: Normal. OTHER FINDINGS: Right dialysis catheter tip in right atrium. Left PICC line tip in right atrium. IMPRESSION: No change in the left hemithorax appearance. -findings as noted above. Interval decrease right pleural effusion
[2016-11-10] MEDS: Micafungin 100 MG in Sodium Chloride 0.9% 100 ML IV SCH (17:06)
--- NOTE | 2016-11-10 18:33 | CP.PCM.PN ---
Subjective - Date & Time of Evaluation Date of Evaluation: 11/10/16 Time of Evaluation: 18:15 - Subjective Subjective: Hospitalist Progress Note (Patient was seen and examined at 6:15 PM 11/10/16) 45 year old male who presented to the ER here at [facility] on 10/21/16 intoxicated with complaints of cough and abdominal pain. He was found to be hypotensive, hypoxic, with RUL/RML Pneumonia. He eventually required intubation and ventilator support. He was also found to be in Acute Renal Failure and started receiving HD through Right Femoral Access on Wednesday10/23/16, 10/26, and 10/27/16. He was for Right Perm Cath with Dr. De La Vega for 10/28/16 however as his platelets declined, this was put on hold and patient was transfused 2 bags of platelets as per ICU Team. He became hypotensive on and therefore was started on Norepinephrine Drip, Albumin, and Solumedrol. Chest X Ray on 10/29/16 showed Left Pneumothorax and [employer] Worker has placed a left sided chest tube pigtail catheter and repeat Chest X Ray showed re -expansion of the Left Lung. He had Right Perm Cath and Left Arm PICC Line placed 10/30/16. He was eventually extubated on 11/04/16. NO chest pain, NO palpitations, Stated that his chest felt tight and breathing was difficult earlier today, NO dysphagia/odynophagia with eating/drinking, NO abdominal pain, NO n/v/d/c (his last bowel movement was today as per patient), NO burning/pain with urination, NO lightheadedness/dizziness while in bed, NO headaches, NO new changes in vision/eye pain/loss of vision, NO new changes in hearing/ear pain/loss of hearing, NO paresthesias. GENERAL: Patient was asleep but easily arousable. Believes it is October 2016. Knows who he is, where he is, and why he is hear. He was told today's date. NO apparent distress at this time and speaking in full sentences with no signs of respiratory distress. HEENT: NCA, Pupils are round/reactive to light, Slight Scleral Incterus, NO lymphadenopathy, NO JVD, NO thyromegaly, Nasal turbinates are nonerythematous/ nonedematous/moist, Oral mucosa is dry. Cardio: NS1 and NS2, Systolic Ejection heard best along left sternal border Resp: Decreased breath sounds left mid to lower lung cameron with course breath sounds with inspiration everywhere else GI: BSx4, Distention, Liver and Spleen could not be adequately palpated secondary to distention, Soft, NT, NO guarding/rebound tenderness Ext: Pulses are strong and equal, Capillary Refill is 2 seconds, NO cyanosis, NO edema, Patches of Psoriasis on the bilateral elbows/bilateral anterior lower legs Neuro: CN II through XII are grossly intact Skin: Bilateral Groin fungal rash has disappeared Assessment and Plan (1) Alcohol withdrawal Assessment & Plan: NO signs of DTs at the time of my exam Thiamine 100 mg IV 1x/day Folic Acid 1 mg IV 1x/day Status: Acute (2) Hypoxemia/Respiratory Distress Assessment & Plan: Patient was extubated on 11/04/16 O2 Saturation dropped earlier today as per my conversation with Nurse Abby. This may have been secondary to increased pulmonary vascular congestion as evidenced by my respiratory exam as mentioned above. He is currently on BiPap 40% FiO2 RR22 and is receiving HD to help with fluid overload Status: Acute (3). Left Pneumothorax/Left Loculated Effusion As per Chest X Ray 11/08/16: moderate loculated left sided pleuaral effusion, moderate to severe venous congestion with confluent consolidative changes at the left mid to lower lung zone, upper lobe granulomatous changes CT Chest 11/09/16 showed improvement in pulmonary edema, persistant Left Pleural Effusion but decreased in size, compressive atelectasis in left lower lobe Chest X Ray 11/10/16 show no change in left hemithorax appearance but decrease in right pleural effusion Chest Tube in Place back on Suction (4)Sepsis Secondary to Pneumonia and Bacteremia Assessment & Plan: Low Grad Fever today Meropeneam 500 mg IV Q12H through 11/23/16 Micofungin 100 mg IV Q24H through 11/23/16 Blood Culture 10/21/16 showed S. pneumoniae Blood Culture 10/26/16 showed Coag Neg Staph Repeat Blood Cultures on 10/28/16 and 11/01/16 were negative at 5 days Sputum Culture 11/01/[address] Aleyda Bowers Status: Acute (5). Hypotension Resolved B/P is stable (6) Seizure disorder Assessment & Plan: Secondary to alcohol withdrawal. NO recent seizure reported Neurology Dr. Pineda Status: Acute (7) Thrombocytopenia Assessment & Plan: Likely Secondary to alcohol abuse. Heparin Abs were also ordered on 10/30/16 and this is NEGATIVE Currently at 66 Status: Chronic (8) Psoriasis Status: Acute (9) Renal failure Assessment & Plan: Renal U/S 10/24/16 showed nonobstructing calculus upper/midpole Right Kidney and Abdominal Ascites Hepatitis Panel is negative Patient was receiving HD through Right Femoral Catheter and this was removed on 10/31/16 S/P Right Chest Perm Cath placement by Vascular Surgeon Dr. De La Vega . HD through Right Chest Perm Cath as per Nephrology Dr. Merida/Derian Receiving HD today 11/10/16 Sevelamer 800mg PO TID Status: Acute (10). Anemia Likely Secondary to Chronic Alcohol Use and Renal Failure Stool Occult Blood 10/21/16 is negative HgB/Hct today 11/10/16 is stable at 8.0/23.8 Procrit M-W-F 10,000 Units IV Ferrlecit 125 mg IV 1x/day Continue to monitor (11). Hypokalemia 3.5 today and is receiving HD (12). Bilateral Groin Fungal Rash Resolved Nystatin Powder 2x/day for 2 weeks started on 10/26/16 and last dose on 11/09/16 (13). Elevated LFTs Likely secondary to history of Alcohol Abuse Monitor (14). Prophylactic Measures Bilateral SCDs Protonix 40 mg IV 1x/day Acetaminophen 650 mg PO Q6H PRN Temp/Fever Florastor 250 mg PO 2x/day Albuterol 2.5 mg INH Q6H Novolin Regular ISS with Accuchecks NO ANTICOAGULATION CONSIDERING THE ANEMIA AND THE THROMBOCYTOPENIA. Objective - Vital Signs/Intake and Output Vital Signs (last 24 hours): Temp Pulse Resp BP Pulse Ox 100.8 F H 95 H 22 141/86 96 11/10/16 17:30 11/10/16 17:31 11/10/16 17:31 11/10/16 18:00 11/10/16 17:31 Intake and Output: 11/10/16 11/10/16 06:59 18:59 Intake Total 650 750 Output Total 650 600 Balance 0 150 - Medications Medications: Current Medications Acetaminophen (Tylenol 650mg/20.3ml Solution Ud) 650 mg PO Q6 PRN PRN Reason: Temperature Last Admin: 11/02/16 23:46 Dose: 650 mg Albumin Human (Albumin Human 25% (12.5 Gm/50 Ml)) 12.5 gm IV Q8H [facility] Last Admin: 10/27/16 12:01 Dose: Not Given Albuterol/Ipratropium (Duoneb 3 Mg/0.5 Mg (3 Ml) Ud) 3 ml INH RQ6 [facility] Epoetin Humphrey (Procrit) 10,000 unit IV MWF [facility] Last Admin: 11/06/16 22:23 Dose: 10,000 unit Micafungin Sodium 100 mg/ (Sodium Chloride) 100 mls @ 100 mls/hr IV Q24H [facility] Last Admin: 11/10/16 17:06 Dose: 100 mls/hr Meropenem 500 mg/ Sodium (Chloride) 100 mls @ 100 mls/hr IVPB Q12H [facility] Last Admin: 11/10/16 05:12 Dose: 100 mls/hr Insulin Human Regular (Novolin R) 0 unit SC ACHS [facility] PRN Reason: Protocol Last Admin: 11/10/16 16:28 Dose: Not Given Lactic Acid (Lac-Hydrin 12% Lotion (225 G)) 0 gm EXT BID [facility] Last Admin: 11/10/16 17:09 Dose: 1 applic Multivitamins (Hexavitamin) 1 tab PO DAILY [facility] Last Admin: 11/10/16 09:34 Dose: 1 tab Pantoprazole Sodium (Protonix Ec Tab) 40 mg PO DAILY [facility] Last Admin: 11/10/16 09:34 Dose: 40 mg Saccharomyces Boulardii (Florastor) 250 mg PO BID [facility] Last Admin: 11/10/16 09:34 Dose: 250 mg Sevelamer Carbonate (Renvela) 800 mg PO TIDCC [facility] Last Admin: 11/10/16 17:53 Dose: Not Given - Labs Labs: 11/10/16 06:24 11/10/16 06:24 PT 17.7 SECONDS (9.7-12.2) H 10/29/16 06:22 INR 1.6 10/29/16 06:22 APTT 30 SECONDS (21-34) 10/29/16 06:22
--- NOTE | 2016-11-10 18:37 | CP.CCUPN ---
CCU Subjective - Physician Review Events Since Last Encounter (Free Text): 11/10/16 18:36 Patient seen and examined in the intensive care unit. Case discussed with the staff in the morning rounds. 45 year old male with medical history of alcoholism, presents to the ED with complaint of worsening cough, abdominal pain for seven days patient intubated in the emergency room for pneumonia/ARDS. Patient extubated after weaning trial. Today patient in respiratory distress/pulmonary edema Pigtail catheter off suction with no pneumothorax CCU Objective - Vital Signs / Intake & Output Vital Signs (Last 4 hours): Vital Signs Temp Pulse Pulse Resp BP BP Pulse Ox 11/10/16 18:00 141/86 11/10/16 17:45 134/81 11/10/16 17:31 95 H 22 128/77 96 11/10/16 17:30 100.8 F H 97 H 22 128/77 97 11/10/16 17:26 97 H 25 H 118/78 96 11/10/16 17:25 100.8 F H 97 H 22 118/78 11/10/16 17:07 96 H 11/10/16 17:00 96 H 20 94 L 11/10/16 16:36 97 H 22 131/80 91 L 11/10/16 16:00 99.6 F 102 H 21 91 L 11/10/16 15:36 94 H 19 131/77 91 L 11/10/16 15:00 99 H 20 92 L Intake and Output (Last 8hrs): Intake & Output 11/10/16 11/10/16 11/10/16 06:59 14:59 22:59 Intake Total 550 650 100 Output Total 650 600 Balance -100 50 100 Weight 180 lb 5.41 oz Intake: Intake, IV Amount 100 100 100 Left PICC 100 100 100 Oral 450 550 0 Output: Chest Tube Drainage 0 Left Mid-Axillary Chest 0 Urine 650 600 Urethral (Walters) 400 Urine, Voided 650 200 Other: # Bowel Movements 1 1 - Physical Exam Head: Positive for: Atraumatic, Normocephalic Extroacular Muscles: Positive for: EOMI Mouth: Positive for: Moist Mucous Membranes Respiratory/Chest: Positive for: Decreased Breath Sounds (L>R) Cardiovascular: Positive for: Regular Rate and Rhythm, Normal S1, S2 Abdomen: Positive for: Distention, Normal Bowel Sounds Genitourinary Male: Positive for: Other (walters in place) Upper Extremity: Negative for: Edema Lower Extremity: Negative for: Edema Neurological: Positive for: Other (tremors) Skin: Positive for: Warm, Dry, Normal Color, Other (Psoriasis located on b/l knees, bilateral upper extremities) Psychiatric: Positive for: Alert, Oriented x 3 - Medications Active Medications: Active Medications Generic Name Dose Route Start Last Admin Trade Name Freq PRN Reason Stop Dose Admin Acetaminophen 650 mg 10/25/16 11:56 11/02/16 23:46 Tylenol 650mg/20.3ml Solution Ud PO 650 mg Q6 PRN Administration Temperature Albumin Human 12.5 gm 10/26/16 18:45 10/27/16 12:01 Albumin Human 25% (12.5 Gm/50 Ml) IV Not Given Q8H [facility] Albuterol/Ipratropium 3 ml 11/10/16 20:00 Duoneb 3 Mg/0.5 Mg (3 Ml) Ud INH RQ6 [facility] Epoetin Humphrey 10,000 unit 11/02/16 14:45 11/06/16 22:23 Procrit IV 10,000 unit MWF [facility] Administration Micafungin Sodium 100 mg/ 100 mls @ 100 mls/hr 11/01/16 17:30 11/10/16 17:06 Sodium Chloride IV 100 mls/hr Q24H [facility] Administration Meropenem 500 mg/ Sodium 100 mls @ 100 mls/hr 11/01/16 17:45 11/10/16 05:12 Chloride IVPB 100 mls/hr Q12H [facility] Administration Insulin Human Regular 0 unit 11/05/16 16:30 11/10/16 16:28 Novolin R SC Not Given ACHS [facility] Protocol Lactic Acid 0 gm 10/22/16 13:00 11/10/16 17:09 Lac-Hydrin 12% Lotion (225 G) EXT 1 applic BID [facility] Administration Multivitamins 1 tab 11/06/16 10:00 11/10/16 09:34 Hexavitamin PO 1 tab DAILY [facility] Administration Pantoprazole Sodium 40 mg 11/06/16 10:00 11/10/16 09:34 Protonix Ec Tab PO 40 mg DAILY [facility] Administration Saccharomyces Boulardii 250 mg 11/09/16 10:00 11/10/16 09:34 Florastor PO 250 mg BID [facility] Administration Sevelamer Carbonate 800 mg 11/06/16 12:00 11/10/16 17:53 Renvela PO Not Given TIDCC [facility] - Patient Studies Lab Studies: Lab Studies 11/10/16 11/10/16 11/10/16 Range/Units 16:06 11:54 11:54 WBC (4.8-10.8) K/uL RBC (4.40-5.90) Mil/uL Hgb (12.0-18.0) g/dL Hct (35.0-51.0) % MCV (80.0-94.0) fL MCH (27.0-31.0) pg MCHC (33.0-37.0) g/dL RDW (11.5-14.5) % Plt Count (130-400) K/uL MPV (7.2-11.7) fL Neut % (Auto) (50.0-75.0) % Lymph % (Auto) (20.0-40.0) % [place] % (Auto) (0.0-10.0) % Eos % (Auto) (0.0-4.0) % Baso % (Auto) (0.0-2.0) % Neut # (1.8-7.0) K/uL Lymph # (1.0-4.3) K/uL [place] # (0.0-0.8) K/uL Eos # (0.0-0.7) K/uL Baso # (0.0-0.2) K/uL Neutrophils % (Manual) (50-75) % Band Neutrophils % (0-2) % Lymphocytes % (Manual) (20-40) % Monocytes % (Manual) (0-10) % Eosinophils % (Manual) (0-4) % Platelet Estimate (NORMAL) Anisocytosis (manual) Sodium (132-148) mmol/L Potassium (3.6-5.2) mmol/L Chloride (98-107) mmol/L Carbon Dioxide (22-30) mmol/L Anion Gap (10-20) BUN (9-20) mg/dL Creatinine (0.8-1.5) MG/DL Est GFR ( Amer) Est GFR (Non-Af Amer) POC Glucose (mg/dL) 117 H (65-110) mg/dL Random Glucose (75-110) mg/dL Calcium (8.6-10.4) mg/dl Phosphorus (2.5-4.5) mg/dL Magnesium (1.6-2.3) mg/dL Iron (49-181) ug/dL TIBC (250-450) ug/dL % Saturation 34 (20-55) Ferritin 1090.0 ng/mL Total Bilirubin (0.2-1.3) mg/dL AST (17-59) U/L ALT (21-72) U/L Alkaline Phosphatase (38-126) U/L Total Protein (6.3-8.3) g/dL Albumin (3.5-5.0) g/dL Globulin (2.2-3.9) gm/dL Albumin/Globulin Ratio (1.0-2.1) 11/10/16 11/10/16 11/10/16 Range/Units 11:54 11:29 07:14 WBC (4.8-10.8) K/uL RBC (4.40-5.90) Mil/uL Hgb (12.0-18.0) g/dL Hct (35.0-51.0) % MCV (80.0-94.0) fL MCH (27.0-31.0) pg MCHC (33.0-37.0) g/dL RDW (11.5-14.5) % Plt Count (130-400) K/uL MPV (7.2-11.7) fL Neut % (Auto) (50.0-75.0) % Lymph % (Auto) (20.0-40.0) % [place] % (Auto) (0.0-10.0) % Eos % (Auto) (0.0-4.0) % Baso % (Auto) (0.0-2.0) % Neut # (1.8-7.0) K/uL Lymph # (1.0-4.3) K/uL [place] # (0.0-0.8) K/uL Eos # (0.0-0.7) K/uL Baso # (0.0-0.2) K/uL Neutrophils % (Manual) (50-75) % Band Neutrophils % (0-2) % Lymphocytes % (Manual) (20-40) % Monocytes % (Manual) (0-10) % Eosinophils % (Manual) (0-4) % Platelet Estimate (NORMAL) Anisocytosis (manual) Sodium (132-148) mmol/L Potassium (3.6-5.2) mmol/L Chloride (98-107) mmol/L Carbon Dioxide (22-30) mmol/L Anion Gap (10-20) BUN (9-20) mg/dL Creatinine (0.8-1.5) MG/DL Est GFR ( Amer) Est GFR (Non-Af Amer) POC Glucose (mg/dL) 137 H 98 (65-110) mg/dL Random Glucose (75-110) mg/dL Calcium (8.6-10.4) mg/dl Phosphorus (2.5-4.5) mg/dL Magnesium (1.6-2.3) mg/dL Iron 66 (49-181) ug/dL TIBC 192 L (250-450) ug/dL % Saturation 34 (20-55) Ferritin ng/mL Total Bilirubin (0.2-1.3) mg/dL AST (17-59) U/L ALT (21-72) U/L Alkaline Phosphatase (38-126) U/L Total Protein (6.3-8.3) g/dL Albumin (3.5-5.0) g/dL Globulin (2.2-3.9) gm/dL Albumin/Globulin Ratio (1.0-2.1) 11/10/16 11/10/16 11/09/16 Range/Units 06:24 06:24 21:17 WBC 16.4 H (4.8-10.8) K/uL RBC 2.42 L (4.40-5.90) Mil/uL Hgb 8.0 L (12.0-18.0) g/dL Hct 23.8 L (35.0-51.0) % MCV 98.6 H (80.0-94.0) fL MCH 33.2 H (27.0-31.0) pg MCHC 33.7 (33.0-37.0) g/dL RDW 15.6 H (11.5-14.5) % Plt Count 66 L (130-400) K/uL MPV 10.7 (7.2-11.7) fL Neut % (Auto) 85.1 H (50.0-75.0) % Lymph % (Auto) 5.3 L (20.0-40.0) % [place] % (Auto) 3.6 (0.0-10.0) % Eos % (Auto) 5.5 H (0.0-4.0) % Baso % (Auto) 0.5 (0.0-2.0) % Neut # 14.0 H (1.8-7.0) K/uL Lymph # 0.9 L (1.0-4.3) K/uL [place] # 0.6 (0.0-0.8) K/uL Eos # 0.9 H (0.0-0.7) K/uL Baso # 0.1 (0.0-0.2) K/uL Neutrophils % (Manual) 81 H (50-75) % Band Neutrophils % 3 H (0-2) % Lymphocytes % (Manual) 8 L (20-40) % Monocytes % (Manual) 2 (0-10) % Eosinophils % (Manual) 6 H (0-4) % Platelet Estimate Decreased L (NORMAL) Anisocytosis (manual) Slight Sodium 135 (132-148) mmol/L Potassium 3.5 L (3.6-5.2) mmol/L Chloride 98 (98-107) mmol/L Carbon Dioxide 22 (22-30) mmol/L Anion Gap 19 (10-20) BUN 59 H (9-20) mg/dL Creatinine 2.7 H (0.8-1.5) MG/DL Est GFR ( Amer) 31 Est GFR (Non-Af Amer) 26 POC Glucose (mg/dL) 153 H (65-110) mg/dL Random Glucose 80 (75-110) mg/dL Calcium 7.1 L (8.6-10.4) mg/dl Phosphorus 5.2 H (2.5-4.5) mg/dL Magnesium 1.7 (1.6-2.3) mg/dL Iron (49-181) ug/dL TIBC (250-450) ug/dL % Saturation (20-55) Ferritin ng/mL Total Bilirubin 2.2 H (0.2-1.3) mg/dL AST 50 (17-59) U/L ALT 63 (21-72) U/L Alkaline Phosphatase 131 H (38-126) U/L Total Protein 5.9 L (6.3-8.3) g/dL Albumin 2.6 L (3.5-5.0) g/dL Globulin 3.3 (2.2-3.9) gm/dL Albumin/Globulin Ratio 0.8 L (1.0-2.1) Laboratory Results - last 24 hr 11/09/16 11/10/16 11/10/16 21:17 06:24 06:24 WBC 16.4 H RBC 2.42 L Hgb 8.0 L Hct 23.8 L MCV 98.6 H MCH 33.2 H MCHC 33.7 RDW 15.6 H Plt Count 66 L MPV 10.7 Neut % (Auto) 85.1 H Lymph % (Auto) 5.3 L [place] % (Auto) 3.6 Eos % (Auto) 5.5 H Baso % (Auto) 0.5 Neut # 14.0 H Lymph # 0.9 L [place] # 0.6 Eos # 0.9 H Baso # 0.1 Neutrophils % (Manual) 81 H Band Neutrophils % 3 H Lymphocytes % (Manual) 8 L Monocytes % (Manual) 2 Eosinophils % (Manual) 6 H Platelet Estimate Decreased L Anisocytosis (manual) Slight Sodium 135 Potassium 3.5 L Chloride 98 Carbon Dioxide 22 Anion Gap 19 BUN 59 H Creatinine 2.7 H Est GFR ( Amer) 31 Est GFR (Non-Af Amer) 26 POC Glucose (mg/dL) 153 H Random Glucose 80 Calcium 7.1 L Phosphorus 5.2 H Magnesium 1.7 Iron TIBC % Saturation Ferritin Total Bilirubin 2.2 H AST 50 ALT 63 Alkaline Phosphatase 131 H Total Protein 5.9 L Albumin 2.6 L Globulin 3.3 Albumin/Globulin Ratio 0.8 L 11/10/16 11/10/16 11/10/16 07:14 11:29 11:54 WBC RBC Hgb Hct MCV MCH MCHC RDW Plt Count MPV Neut % (Auto) Lymph % (Auto) [place] % (Auto) Eos % (Auto) Baso % (Auto) Neut # Lymph # [place] # Eos # Baso # Neutrophils % (Manual) Band Neutrophils % Lymphocytes % (Manual) Monocytes % (Manual) Eosinophils % (Manual) Platelet Estimate Anisocytosis (manual) Sodium Potassium Chloride Carbon Dioxide Anion Gap BUN Creatinine Est GFR ( Amer) Est GFR (Non-Af Amer) POC Glucose (mg/dL) 98 137 H Random Glucose Calcium Phosphorus Magnesium Iron 66 TIBC 192 L % Saturation 34 Ferritin Total Bilirubin AST ALT Alkaline Phosphatase Total Protein Albumin Globulin Albumin/Globulin Ratio 11/10/16 11/10/16 11/10/16 11:54 11:54 16:06 WBC RBC Hgb Hct MCV MCH MCHC RDW Plt Count MPV Neut % (Auto) Lymph % (Auto) [place] % (Auto) Eos % (Auto) Baso % (Auto) Neut # Lymph # [place] # Eos # Baso # Neutrophils % (Manual) Band Neutrophils % Lymphocytes % (Manual) Monocytes % (Manual) Eosinophils % (Manual) Platelet Estimate Anisocytosis (manual) Sodium Potassium Chloride Carbon Dioxide Anion Gap BUN Creatinine Est GFR ( Amer) Est GFR (Non-Af Amer) POC Glucose (mg/dL) 117 H Random Glucose Calcium Phosphorus Magnesium Iron TIBC % Saturation 34 Ferritin 1090.0 Total Bilirubin AST ALT Alkaline Phosphatase Total Protein Albumin Globulin Albumin/Globulin Ratio Fingerstick Blood Sugar Results: 117 Critical Care Progress Note - Nutrition Nutrition: Nutrition Category Date Time Status Consistent Carbohydrate [DIET] Diets 11/10/16 Dinner Active Assessment/Plan (1) Acute respiratory failure with hypoxemia Current Visit: Yes Status: Acute Comment: Patient placed on BiPAP for worsening pulmonary edema Continue hemodialysis Continue the antibiotics remove pigtail catheter Continue to monitor in ICU (2) Acute renal failure (ARF) Current Visit: Yes Status: Acute Comment: Continue hemodialysis (3) Pneumonia Current Visit: Yes Status: Acute Comment: Continue antibiotics as per infectious disease
[2016-11-10] MEDS: Albuterol-Ipratrop 3 mg / 0.5 (3 ml) UD INH SCH (20:03)
[2016-11-11] MEDS: Albuterol-Ipratrop 3 mg / 0.5 (3 ml) UD INH SCH ×4 (02:02→19:48)
[2016-11-11 06:38] LABS: BASO % 0.3 % (0.0-2.0); EOS # 0.9 K/uL (0.0-0.7); EOS % 5.5 % (0.0-4.0); HEMATOCRIT 23.2 % (35.0-51.0); LYMPH # 1.1 K/uL (1.0-4.3); LYMPH % 6.9 % (20.0-40.0); MEAN CELL VOLUME 99.2 fL (80.0-94.0); MEAN CORPUSCULAR HEMOGLOBIN 32.7 pg (27.0-31.0); MONO # 0.5 K/uL (0.0-0.8); MONO % 2.9 % (0.0-10.0); PLATELET COUNT 64 K/uL (130-400); WHITE BLOOD COUNT 15.6 K/uL (4.8-10.8)
[2016-11-11 06:48] LABS: ALB/GLOB RATIO 0.7 (1.0-2.1); BILIRUBIN,TOTAL 2.2 mg/dL (0.2-1.3); CALCIUM 7.4 mg/dl (8.6-10.4); MAGNESIUM 1.8 mg/dL (1.6-2.3); PHOSPHOROUS 4.5 mg/dL (2.5-4.5); POTASSIUM 3.4 mmol/L (3.6-5.2); TOTAL PROTEIN 6.3 g/dL (6.3-8.3)
[2016-11-11] MEDS: (Novolin R) Insulin Human Regular 100 units/ml vial SC SCH ×4 (07:45→22:00)
[2016-11-11] MEDS: Meropenem 500 MG in Sodium Chloride 0.9% 100 ML IVPB SCH (07:47)
[2016-11-11 08:47] LABS: EOSINOPHIL 5 % (0-4); NEUTROPHIL 88 % (50-75); TOTAL CELLS COUNTED 100
--- NOTE | 2016-11-11 08:50 | CP.PCM.PN ---
Subjective - Date & Time of Evaluation Date of Evaluation: 11/11/16 Time of Evaluation: 08:30 - Subjective Subjective: Hospitalist Progress Note (Patient was seen and examined at 8:30 AM 11/11/16) 45 year old male who presented to the ER here at [facility] on 10/21/16 intoxicated with complaints of cough and abdominal pain. He was found to be hypotensive, hypoxic, with RUL/RML Pneumonia. He eventually required intubation and ventilator support. He was also found to be in Acute Renal Failure and started receiving HD through Right Femoral Access on Wednesday10/23/16, 10/26, and 10/27/16. He was for Right Perm Cath with Dr. De La Vega for 10/28/16 however as his platelets declined, this was put on hold and patient was transfused 2 bags of platelets as per ICU Team. He became hypotensive on and therefore was started on Norepinephrine Drip, Albumin, and Solumedrol. Chest X Ray on 10/29/16 showed Left Pneumothorax and Attraction Worker has placed a left sided chest tube pigtail catheter and repeat Chest X Ray showed re -expansion of the Left Lung. He had Right Perm Cath and Left Arm PICC Line placed 10/30/16. He was eventually extubated on 11/04/16. NO chest pain, NO palpitation, Dyspnea/Chest Tightness have resolved after HD last night, NO dysphagia/odynophagia with eating/drinking, NO abdominal pain, NO n/v/d/c (his last bowel movement was this morning as per patient), NO burning /pain with urination, NO lightheadedness/dizziness while in bed, NO headaches, NO new changes in vision/eye pain/loss of vision, NO new changes in hearing/ear pain/loss of hearing, NO paresthesias. GENERAL: Patient was asleep but easily arousable. Believes it is November 2016. Knows who he is, where he is, and why he is hear. He was told today's date. NO apparent distress at this time and speaking in full sentences with no signs of respiratory distress. HEENT: NCA, Pupils are round/reactive to light, Slight Scleral Incterus, NO lymphadenopathy, NO JVD, NO thyromegaly, Nasal turbinates are nonerythematous/ nonedematous/moist, Oral mucosa is dry. Cardio: NS1 and NS2, Systolic Ejection heard best along left sternal border Resp: There are NO longer any decreased breath sounds on the left and lung exam is CTA B/L, NO R/R/W GI: BSx4, Distention, Liver and Spleen could not be adequately palpated secondary to distention, Soft, NT, NO guarding/rebound tenderness Ext: Pulses are strong and equal, Capillary Refill is 2 seconds, NO cyanosis, NO edema, Patches of Psoriasis on the bilateral elbows/bilateral anterior lower legs Neuro: CN II through XII are grossly intact Skin: Bilateral Groin fungal rash has disappeared Assessment and Plan (1) Alcohol withdrawal Assessment & Plan: NO signs of DTs at the time of my exam Thiamine 100 mg IV 1x/day Folic Acid 1 mg IV 1x/day Status: Acute (2) Hypoxemia/Respiratory Distress Assessment & Plan: Patient was extubated on 11/04/16 He was on BiPap 03/10 40% FiO2 RR22 yesterday 11/10/16 evening but after completion of HD was switched over to O2 via NC and is currently breathing without difficulty and respiratory exam has improved. Status: Acute (3). Left Pneumothorax/Left Loculated Effusion As per Chest X Ray 11/08/16: moderate loculated left sided pleuaral effusion, moderate to severe venous congestion with confluent consolidative changes at the left mid to lower lung zone, upper lobe granulomatous changes CT Chest 11/09/16 showed improvement in pulmonary edema, persistant Left Pleural Effusion but decreased in size, compressive atelectasis in left lower lobe Chest X Ray 11/10/16 show no change in left hemithorax appearance but decrease in right pleural effusion Chest X Ray 11/11/16 shows no change when compared to 11/10/16, however follow up official reading Chest Tube in Place back on Suction (4)Sepsis Secondary to Pneumonia and Bacteremia Assessment & Plan: Low Grad Fever today 11/10/16 Meropeneam 500 mg IV Q12H through 11/23/16 Micofungin 100 mg IV Q24H through 11/23/16 Blood Culture 10/21/16 showed S. pneumoniae Blood Culture 10/26/16 showed Coag Neg Staph Repeat Blood Cultures on 10/28/16 and 11/01/16 were negative at 5 days Sputum Culture 11/01/[address] Aleyda Bowers Status: Acute (5). Hypotension Currently hypotensive and tachycardic (6) Seizure disorder Assessment & Plan: Secondary to alcohol withdrawal. NO recent seizure reported Neurology Dr. Pineda Status: Acute (7) Thrombocytopenia Assessment & Plan: Likely Secondary to alcohol abuse. Heparin Abs were also ordered on 10/30/16 and this is NEGATIVE Currently at 63 Status: Chronic (8) Psoriasis Status: Acute (9) Renal failure Assessment & Plan: Renal U/S 10/24/16 showed nonobstructing calculus upper/midpole Right Kidney and Abdominal Ascites Hepatitis Panel is negative Patient was receiving HD through Right Femoral Catheter and this was removed on 10/31/16 S/P Right Chest Perm Cath placement by Vascular Surgeon Dr. De La Vega . HD through Right Chest Perm Cath as per Nephrology Dr. Merida/Derian Receiving HD again today 11/11/16 Sevelamer 800mg PO TID Status: Acute (10). Anemia Likely Secondary to Chronic Alcohol Use and Renal Failure Stool Occult Blood 10/21/16 is negative HgB/Hct today 11/11/16 is stable at 7.6/23.2 and patient is tachycardic therefore 1 unit of PRBC has been ordered to be completed after HD. Premedicate with Tylenol and Benadryl. F/U Repeat Stool Occult Blood ordered 11/11/16 Procrit M-W-F 10,000 Units IV Ferrlecit 125 mg IV 1x/day Continue to monitor (11). Hypokalemia 3.4 today and is receiving HD (12). Bilateral Groin Fungal Rash Resolved Nystatin Powder 2x/day for 2 weeks started on 10/26/16 and last dose on 11/09/16 (13). Elevated LFTs Likely secondary to history of Alcohol Abuse Monitor (14). Prophylactic Measures Bilateral SCDs Protonix 40 mg IV 1x/day Acetaminophen 650 mg PO Q6H PRN Temp/Fever Florastor 250 mg PO 2x/day Albuterol 2.5 mg INH Q6H Novolin Regular ISS with Accuchecks NO ANTICOAGULATION CONSIDERING THE ANEMIA AND THE THROMBOCYTOPENIA. Objective - Vital Signs/Intake and Output Vital Signs (last 24 hours): Temp Pulse Resp BP Pulse Ox 98.5 F 88 17 91/55 L 95 11/11/16 00:00 11/11/16 07:00 11/11/16 07:00 11/11/16 05:41 11/11/16 07:00 Intake and Output: 11/11/16 11/11/16 06:59 18:59 Intake Total 300 0 Output Total 300 Balance 0 0 - Medications Medications: Current Medications Acetaminophen (Tylenol 650mg/20.3ml Solution Ud) 650 mg PO Q6 PRN PRN Reason: Temperature Last Admin: 11/02/16 23:46 Dose: 650 mg Albumin Human (Albumin Human 25% (12.5 Gm/50 Ml)) 12.5 gm IV Q8H [facility] Last Admin: 10/27/16 12:01 Dose: Not Given Albuterol/Ipratropium (Duoneb 3 Mg/0.5 Mg (3 Ml) Ud) 3 ml INH RQ6 [facility] Last Admin: 11/11/16 07:29 Dose: 3 ml Epoetin Humphrey (Procrit) 10,000 unit IV MWF [facility] Last Admin: 11/06/16 22:23 Dose: 10,000 unit Micafungin Sodium 100 mg/ (Sodium Chloride) 100 mls @ 100 mls/hr IV Q24H [facility] Last Admin: 11/10/16 17:06 Dose: 100 mls/hr Meropenem 500 mg/ Sodium (Chloride) 100 mls @ 100 mls/hr IVPB Q12H [facility] Last Admin: 11/11/16 07:47 Dose: 100 mls/hr Insulin Human Regular (Novolin R) 0 unit SC ACHS [facility] PRN Reason: Protocol Last Admin: 11/11/16 07:45 Dose: Not Given Lactic Acid (Lac-Hydrin 12% Lotion (225 G)) 0 gm EXT BID [facility] Last Admin: 11/10/16 17:09 Dose: 1 applic Multivitamins (Hexavitamin) 1 tab PO DAILY [facility] Last Admin: 11/10/16 09:34 Dose: 1 tab Pantoprazole Sodium (Protonix Ec Tab) 40 mg PO DAILY [facility] Last Admin: 11/10/16 09:34 Dose: 40 mg Saccharomyces Boulardii (Florastor) 250 mg PO BID [facility] Last Admin: 11/10/16 19:35 Dose: Not Given Sevelamer Carbonate (Renvela) 800 mg PO TIDCC [facility] Last Admin: 11/11/16 07:45 Dose: 800 mg - Labs Labs: 11/11/16 06:27 11/11/16 06:27 PT 17.7 SECONDS (9.7-12.2) H 10/29/16 06:22 INR 1.6 10/29/16 06:22 APTT 30 SECONDS (21-34) 10/29/16 06:22
--- NOTE | 2016-11-11 09:18 | CP.PCM.PN ---
Subjective - Date & Time of Evaluation Date of Evaluation: 11/11/16 Time of Evaluation: 09:00 - Subjective Subjective: Alert Orthopnea noted HNeeded dialysis yesterday for acute pulmonary edema Objective - Vital Signs/Intake and Output Vital Signs (last 24 hours): Temp Pulse Resp BP Pulse Ox 98.5 F 88 17 91/55 L 95 11/11/16 00:00 11/11/16 07:00 11/11/16 07:00 11/11/16 05:41 11/11/16 07:00 Intake and Output: 11/11/16 11/11/16 06:59 18:59 Intake Total 300 0 Output Total 300 Balance 0 0 - Medications Medications: Current Medications Acetaminophen (Tylenol 650mg/20.3ml Solution Ud) 650 mg PO Q6 PRN PRN Reason: Temperature Last Admin: 11/02/16 23:46 Dose: 650 mg Acetaminophen (Tylenol 325mg Tab) 650 mg PO PRN ONE Stop: 11/11/16 15:31 Albumin Human (Albumin Human 25% (12.5 Gm/50 Ml)) 12.5 gm IV Q8H [facility] Last Admin: 10/27/16 12:01 Dose: Not Given Albuterol/Ipratropium (Duoneb 3 Mg/0.5 Mg (3 Ml) Ud) 3 ml INH RQ6 [facility] Last Admin: 11/11/16 07:29 Dose: 3 ml Diphenhydramine HCl (Benadryl) 25 mg PO PRN ONE Stop: 11/11/16 15:31 Epoetin Humphrey (Procrit) 10,000 unit IV MWF [facility] Last Admin: 11/06/16 22:23 Dose: 10,000 unit Micafungin Sodium 100 mg/ (Sodium Chloride) 100 mls @ 100 mls/hr IV Q24H [facility] Last Admin: 11/10/16 17:06 Dose: 100 mls/hr Meropenem 500 mg/ Sodium (Chloride) 100 mls @ 100 mls/hr IVPB Q12H [facility] Last Admin: 11/11/16 07:47 Dose: 100 mls/hr Insulin Human Regular (Novolin R) 0 unit SC ACHS [facility] PRN Reason: Protocol Last Admin: 11/11/16 07:45 Dose: Not Given Lactic Acid (Lac-Hydrin 12% Lotion (225 G)) 0 gm EXT BID [facility] Last Admin: 11/10/16 17:09 Dose: 1 applic Multivitamins (Hexavitamin) 1 tab PO DAILY [facility] Last Admin: 11/10/16 09:34 Dose: 1 tab Pantoprazole Sodium (Protonix Ec Tab) 40 mg PO DAILY [facility] Last Admin: 11/10/16 09:34 Dose: 40 mg Saccharomyces Boulardii (Florastor) 250 mg PO BID [facility] Last Admin: 11/10/16 19:35 Dose: Not Given Sevelamer Carbonate (Renvela) 800 mg PO TIDCC [facility] Last Admin: 11/11/16 07:45 Dose: 800 mg - Labs Labs: 11/11/16 06:27 11/11/16 06:27 PT 17.7 SECONDS (9.7-12.2) H 10/29/16 06:22 INR 1.6 10/29/16 06:22 APTT 30 SECONDS (21-34) 10/29/16 06:22 - Respiratory Exam Additional comments: Lungs clear with decreased BS at bases - Cardiovascular Exam Cardiovascular Exam: REGULAR RHYTHM Additional comments: 90/min - GI/Abdominal Exam GI & Abdominal Exam: Soft - Extremities Exam Additional comments: No edema Assessment and Plan - Assessment and Plan (Free Text) Assessment: RUPALI BUN/Creatinine stable Pulmonary edema improved but still has orthopnea. Will receive blood transfusion of 1 unit PRBCs Will schedule dialysis today Pneumonia Anemia Plan: Pt will receive dialysis today Transfusion during dialysis Continue to monitor renal function & fluid status
--- NOTE | 2016-11-11 10:38 | CP.CCUPN ---
<Zoey Chavez - Last Filed: 11/11/16 13:31> CCU Subjective - Physician Review Subjective (Free Text): Patient was seen and examined at bedside in the morning. Patient is alert and oriented x3. Patient reports having no complaints and states he feels better. Patient denies chest pain, abdominal pain, nausea, vomiting, diarrhea, constipation, fevers, dysuria, and headaches. 11/11/16 10:37 CCU Objective - Vital Signs / Intake & Output Vital Signs (Last 4 hours): Vital Signs Pulse Resp BP Pulse Ox 11/11/16 09:42 90 14 99/54 L 86 L 11/11/16 09:00 114 H 18 11/11/16 08:41 104 H 19 104/74 91 L 11/11/16 08:00 91 H 16 97 11/11/16 07:43 92 H 16 94/59 L 99 11/11/16 07:00 88 17 95 Intake and Output (Last 8hrs): Intake & Output 11/10/16 11/11/16 11/11/16 22:59 06:59 14:59 Intake Total 400 0 250 Output Total 50 300 200 Balance 350 -300 50 Intake: Intake, IV Amount 200 100 Left PICC 200 100 Oral 200 0 150 Output: Chest Tube Drainage 50 Left Mid-Axillary Chest 50 Urine 300 200 Urine, Voided 300 200 Other: # Voids Urine, Voided 1 # Bowel Movements 1 1 - Physical Exam Head: Positive for: Atraumatic, Normocephalic Extroacular Muscles: Positive for: EOMI Mouth: Positive for: Moist Mucous Membranes Respiratory/Chest: Positive for: Decreased Breath Sounds (L>R) Cardiovascular: Positive for: Regular Rate and Rhythm, Normal S1, S2 Abdomen: Positive for: Distention, Normal Bowel Sounds Genitourinary Male: Positive for: Other (walters in place) Upper Extremity: Negative for: Edema Lower Extremity: Negative for: Edema Neurological: Positive for: Other (tremors) Skin: Positive for: Warm, Dry, Normal Color, Other (Psoriasis located on b/l knees, bilateral upper extremities) Psychiatric: Positive for: Alert, Oriented x 3 - Medications Active Medications: Active Medications Generic Name Dose Route Start Last Admin Trade Name Freq PRN Reason Stop Dose Admin Acetaminophen 650 mg 10/25/16 11:56 11/02/16 23:46 Tylenol 650mg/20.3ml Solution Ud PO 650 mg Q6 PRN Administration Temperature Acetaminophen 650 mg 11/11/16 15:30 Tylenol 325mg Tab PO 11/11/16 15:31 PRN ONE Albumin Human 12.5 gm 10/26/16 18:45 10/27/16 12:01 Albumin Human 25% (12.5 Gm/50 Ml) IV Not Given Q8H MIRA Albuterol/Ipratropium 3 ml 11/10/16 20:00 11/11/16 07:29 Duoneb 3 Mg/0.5 Mg (3 Ml) Ud INH 3 ml RQ6 MIRA Administration Diphenhydramine HCl 25 mg 11/11/16 15:30 Benadryl PO 11/11/16 15:31 PRN ONE Epoetin Humphrey 10,000 unit 11/02/16 14:45 11/06/16 22:23 Procrit IV 10,000 unit MWF MIRA Administration Micafungin Sodium 100 mg/ 100 mls @ 100 mls/hr 11/01/16 17:30 11/10/16 17:06 Sodium Chloride IV 100 mls/hr Q24H MIRA Administration Meropenem 500 mg/ Sodium 100 mls @ 100 mls/hr 11/01/16 17:45 11/11/16 07:47 Chloride IVPB 100 mls/hr Q12H MIRA Administration Insulin Human Regular 0 unit 11/05/16 16:30 11/11/16 07:45 Novolin R SC Not Given ACHS MIRA Protocol Lactic Acid 0 gm 10/22/16 13:00 11/10/16 17:09 Lac-Hydrin 12% Lotion (225 G) EXT 1 applic BID MIRA Administration Multivitamins 1 tab 11/06/16 10:00 11/10/16 09:34 Hexavitamin PO 1 tab DAILY MIRA Administration Pantoprazole Sodium 40 mg 11/06/16 10:00 11/10/16 09:34 Protonix Ec Tab PO 40 mg DAILY MIRA Administration Saccharomyces Boulardii 250 mg 11/09/16 10:00 11/10/16 19:35 Florastor PO Not Given BID MIRA Sevelamer Carbonate 800 mg 11/06/16 12:00 11/11/16 07:45 Renvela PO 800 mg TIDCC MIRA Administration - Patient Studies Lab Studies: Lab Studies 11/11/16 11/11/16 11/11/16 Range/Units 09:46 07:11 06:27 WBC (4.8-10.8) K/uL RBC (4.40-5.90) Mil/uL Hgb (12.0-18.0) g/dL Hct (35.0-51.0) % MCV (80.0-94.0) fL MCH (27.0-31.0) pg MCHC (33.0-37.0) g/dL RDW (11.5-14.5) % Plt Count (130-400) K/uL MPV (7.2-11.7) fL Neut % (Auto) (50.0-75.0) % Lymph % (Auto) (20.0-40.0) % [place] % (Auto) (0.0-10.0) % Eos % (Auto) (0.0-4.0) % Baso % (Auto) (0.0-2.0) % Neut # (1.8-7.0) K/uL Lymph # (1.0-4.3) K/uL [place] # (0.0-0.8) K/uL Eos # (0.0-0.7) K/uL Baso # (0.0-0.2) K/uL Neutrophils % (Manual) (50-75) % Lymphocytes % (Manual) (20-40) % Monocytes % (Manual) (0-10) % Eosinophils % (Manual) (0-4) % Platelet Estimate (NORMAL) Hypochromasia (manual) Poikilocytosis (manual Anisocytosis (manual) Target Cells Ja Cells Sodium 134 (132-148) mmol/L Potassium 3.4 L (3.6-5.2) mmol/L Chloride 96 L (98-107) mmol/L Carbon Dioxide 27 (22-30) mmol/L Anion Gap 14 (10-20) BUN 39 H (9-20) mg/dL Creatinine 2.3 H (0.8-1.5) MG/DL Est GFR ( Amer) 37 Est GFR (Non-Af Amer) 31 POC Glucose (mg/dL) 93 (65-110) mg/dL Random Glucose 84 (75-110) mg/dL Calcium 7.4 L (8.6-10.4) mg/dl Phosphorus 4.5 (2.5-4.5) mg/dL Magnesium 1.8 (1.6-2.3) mg/dL Iron (49-181) ug/dL TIBC (250-450) ug/dL % Saturation (20-55) Ferritin ng/mL Total Bilirubin 2.2 H (0.2-1.3) mg/dL AST 52 (17-59) U/L ALT 54 (21-72) U/L Alkaline Phosphatase 139 H (38-126) U/L Total Protein 6.3 (6.3-8.3) g/dL Albumin 2.7 L (3.5-5.0) g/dL Globulin 3.7 (2.2-3.9) gm/dL Albumin/Globulin Ratio 0.7 L (1.0-2.1) Blood Type B POSITIVE Antibody Screen Negative 11/11/16 11/10/16 11/10/16 Range/Units 06:27 21:13 16:06 WBC 15.6 H (4.8-10.8) K/uL RBC 2.34 L (4.40-5.90) Mil/uL Hgb 7.6 L (12.0-18.0) g/dL Hct 23.2 L (35.0-51.0) % MCV 99.2 H (80.0-94.0) fL MCH 32.7 H (27.0-31.0) pg MCHC 33.0 (33.0-37.0) g/dL RDW 15.0 H (11.5-14.5) % Plt Count 64 L (130-400) K/uL MPV 11.0 (7.2-11.7) fL Neut % (Auto) 84.4 H (50.0-75.0) % Lymph % (Auto) 6.9 L (20.0-40.0) % [place] % (Auto) 2.9 (0.0-10.0) % Eos % (Auto) 5.5 H (0.0-4.0) % Baso % (Auto) 0.3 (0.0-2.0) % Neut # 13.1 H (1.8-7.0) K/uL Lymph # 1.1 (1.0-4.3) K/uL [place] # 0.5 (0.0-0.8) K/uL Eos # 0.9 H (0.0-0.7) K/uL Baso # 0.0 (0.0-0.2) K/uL Neutrophils % (Manual) 88 H (50-75) % Lymphocytes % (Manual) 6 L (20-40) % Monocytes % (Manual) 1 (0-10) % Eosinophils % (Manual) 5 H (0-4) % Platelet Estimate Decreased L (NORMAL) Hypochromasia (manual) Moderate Poikilocytosis (manual Slight Anisocytosis (manual) Slight Target Cells Slight [place] Cells Slight Sodium (132-148) mmol/L Potassium (3.6-5.2) mmol/L Chloride (98-107) mmol/L Carbon Dioxide (22-30) mmol/L Anion Gap (10-20) BUN (9-20) mg/dL Creatinine (0.8-1.5) MG/DL Est GFR ( Amer) Est GFR (Non-Af Amer) POC Glucose (mg/dL) 107 117 H (65-110) mg/dL Random Glucose (75-110) mg/dL Calcium (8.6-10.4) mg/dl Phosphorus (2.5-4.5) mg/dL Magnesium (1.6-2.3) mg/dL Iron (49-181) ug/dL TIBC (250-450) ug/dL % Saturation (20-55) Ferritin ng/mL Total Bilirubin (0.2-1.3) mg/dL AST (17-59) U/L ALT (21-72) U/L Alkaline Phosphatase (38-126) U/L Total Protein (6.3-8.3) g/dL Albumin (3.5-5.0) g/dL Globulin (2.2-3.9) gm/dL Albumin/Globulin Ratio (1.0-2.1) Blood Type Antibody Screen 11/10/16 11/10/16 11/10/16 Range/Units 11:54 11:54 11:54 WBC (4.8-10.8) K/uL RBC (4.40-5.90) Mil/uL Hgb (12.0-18.0) g/dL Hct (35.0-51.0) % MCV (80.0-94.0) fL MCH (27.0-31.0) pg MCHC (33.0-37.0) g/dL RDW (11.5-14.5) % Plt Count (130-400) K/uL MPV (7.2-11.7) fL Neut % (Auto) (50.0-75.0) % Lymph % (Auto) (20.0-40.0) % [place] % (Auto) (0.0-10.0) % Eos % (Auto) (0.0-4.0) % Baso % (Auto) (0.0-2.0) % Neut # (1.8-7.0) K/uL Lymph # (1.0-4.3) K/uL [place] # (0.0-0.8) K/uL Eos # (0.0-0.7) K/uL Baso # (0.0-0.2) K/uL Neutrophils % (Manual) (50-75) % Lymphocytes % (Manual) (20-40) % Monocytes % (Manual) (0-10) % Eosinophils % (Manual) (0-4) % Platelet Estimate (NORMAL) Hypochromasia (manual) Poikilocytosis (manual Anisocytosis (manual) Target Cells [place] Cells Sodium (132-148) mmol/L Potassium (3.6-5.2) mmol/L Chloride (98-107) mmol/L Carbon Dioxide (22-30) mmol/L Anion Gap (10-20) BUN (9-20) mg/dL Creatinine (0.8-1.5) MG/DL Est GFR ( Amer) Est GFR (Non-Af Amer) POC Glucose (mg/dL) (65-110) mg/dL Random Glucose (75-110) mg/dL Calcium (8.6-10.4) mg/dl Phosphorus (2.5-4.5) mg/dL Magnesium (1.6-2.3) mg/dL Iron 66 (49-181) ug/dL TIBC 192 L (250-450) ug/dL % Saturation 34 34 (20-55) Ferritin 1090.0 ng/mL Total Bilirubin (0.2-1.3) mg/dL AST (17-59) U/L ALT (21-72) U/L Alkaline Phosphatase (38-126) U/L Total Protein (6.3-8.3) g/dL Albumin (3.5-5.0) g/dL Globulin (2.2-3.9) gm/dL Albumin/Globulin Ratio (1.0-2.1) Blood Type Antibody Screen 11/10/16 Range/Units 11:29 WBC (4.8-10.8) K/uL RBC (4.40-5.90) Mil/uL Hgb (12.0-18.0) g/dL Hct (35.0-51.0) % MCV (80.0-94.0) fL MCH (27.0-31.0) pg MCHC (33.0-37.0) g/dL RDW (11.5-14.5) % Plt Count (130-400) K/uL MPV (7.2-11.7) fL Neut % (Auto) (50.0-75.0) % Lymph % (Auto) (20.0-40.0) % [place] % (Auto) (0.0-10.0) % Eos % (Auto) (0.0-4.0) % Baso % (Auto) (0.0-2.0) % Neut # (1.8-7.0) K/uL Lymph # (1.0-4.3) K/uL [place] # (0.0-0.8) K/uL Eos # (0.0-0.7) K/uL Baso # (0.0-0.2) K/uL Neutrophils % (Manual) (50-75) % Lymphocytes % (Manual) (20-40) % Monocytes % (Manual) (0-10) % Eosinophils % (Manual) (0-4) % Platelet Estimate (NORMAL) Hypochromasia (manual) Poikilocytosis (manual Anisocytosis (manual) Target Cells [place] Cells Sodium (132-148) mmol/L Potassium (3.6-5.2) mmol/L Chloride (98-107) mmol/L Carbon Dioxide (22-30) mmol/L Anion Gap (10-20) BUN (9-20) mg/dL Creatinine (0.8-1.5) MG/DL Est GFR ( Amer) Est GFR (Non-Af Amer) POC Glucose (mg/dL) 137 H (65-110) mg/dL Random Glucose (75-110) mg/dL Calcium (8.6-10.4) mg/dl Phosphorus (2.5-4.5) mg/dL Magnesium (1.6-2.3) mg/dL Iron (49-181) ug/dL TIBC (250-450) ug/dL % Saturation (20-55) Ferritin ng/mL Total Bilirubin (0.2-1.3) mg/dL AST (17-59) U/L ALT (21-72) U/L Alkaline Phosphatase (38-126) U/L Total Protein (6.3-8.3) g/dL Albumin (3.5-5.0) g/dL Globulin (2.2-3.9) gm/dL Albumin/Globulin Ratio (1.0-2.1) Blood Type Antibody Screen Laboratory Results - last 24 hr 11/10/16 11/10/16 11/10/16 11:29 11:54 11:54 WBC RBC Hgb Hct MCV MCH MCHC RDW Plt Count MPV Neut % (Auto) Lymph % (Auto) [place] % (Auto) Eos % (Auto) Baso % (Auto) Neut # Lymph # [place] # Eos # Baso # Neutrophils % (Manual) Lymphocytes % (Manual) Monocytes % (Manual) Eosinophils % (Manual) Platelet Estimate Hypochromasia (manual) Poikilocytosis (manual Anisocytosis (manual) Target Cells [place] Cells Sodium Potassium Chloride Carbon Dioxide Anion Gap BUN Creatinine Est GFR ( Amer) Est GFR (Non-Af Amer) POC Glucose (mg/dL) 137 H Random Glucose Calcium Phosphorus Magnesium Iron 66 TIBC 192 L % Saturation 34 34 Ferritin Total Bilirubin AST ALT Alkaline Phosphatase Total Protein Albumin Globulin Albumin/Globulin Ratio Blood Type Antibody Screen 11/10/16 11/10/16 11/10/16 11:54 16:06 21:13 WBC RBC Hgb Hct MCV MCH MCHC RDW Plt Count MPV Neut % (Auto) Lymph % (Auto) [place] % (Auto) Eos % (Auto) Baso % (Auto) Neut # Lymph # [place] # Eos # Baso # Neutrophils % (Manual) Lymphocytes % (Manual) Monocytes % (Manual) Eosinophils % (Manual) Platelet Estimate Hypochromasia (manual) Poikilocytosis (manual Anisocytosis (manual) Target Cells Ja Cells Sodium Potassium Chloride Carbon Dioxide Anion Gap BUN Creatinine Est GFR ( Amer) Est GFR (Non-Af Amer) POC Glucose (mg/dL) 117 H 107 Random Glucose Calcium Phosphorus Magnesium Iron TIBC % Saturation Ferritin 1090.0 Total Bilirubin AST ALT Alkaline Phosphatase Total Protein Albumin Globulin Albumin/Globulin Ratio Blood Type Antibody Screen 11/11/16 11/11/16 11/11/16 06:27 06:27 07:11 WBC 15.6 H RBC 2.34 L Hgb 7.6 L Hct 23.2 L MCV 99.2 H MCH 32.7 H MCHC 33.0 RDW 15.0 H Plt Count 64 L MPV 11.0 Neut % (Auto) 84.4 H Lymph % (Auto) 6.9 L [place] % (Auto) 2.9 Eos % (Auto) 5.5 H Baso % (Auto) 0.3 Neut # 13.1 H Lymph # 1.1 [place] # 0.5 Eos # 0.9 H Baso # 0.0 Neutrophils % (Manual) 88 H Lymphocytes % (Manual) 6 L Monocytes % (Manual) 1 Eosinophils % (Manual) 5 H Platelet Estimate Decreased L Hypochromasia (manual) Moderate Poikilocytosis (manual Slight Anisocytosis (manual) Slight Target Cells Slight Ja Cells Slight Sodium 134 Potassium 3.4 L Chloride 96 L Carbon Dioxide 27 Anion Gap 14 BUN 39 H Creatinine 2.3 H Est GFR ( Amer) 37 Est GFR (Non-Af Amer) 31 POC Glucose (mg/dL) 93 Random Glucose 84 Calcium 7.4 L Phosphorus 4.5 Magnesium 1.8 Iron TIBC % Saturation Ferritin Total Bilirubin 2.2 H AST 52 ALT 54 Alkaline Phosphatase 139 H Total Protein 6.3 Albumin 2.7 L Globulin 3.7 Albumin/Globulin Ratio 0.7 L Blood Type Antibody Screen 11/11/16 09:46 WBC RBC Hgb Hct MCV MCH MCHC RDW Plt Count MPV Neut % (Auto) Lymph % (Auto) [place] % (Auto) Eos % (Auto) Baso % (Auto) Neut # Lymph # [place] # Eos # Baso # Neutrophils % (Manual) Lymphocytes % (Manual) Monocytes % (Manual) Eosinophils % (Manual) Platelet Estimate Hypochromasia (manual) Poikilocytosis (manual Anisocytosis (manual) Target Cells Ja Cells Sodium Potassium Chloride Carbon Dioxide Anion Gap BUN Creatinine Est GFR ( Amer) Est GFR (Non-Af Amer) POC Glucose (mg/dL) Random Glucose Calcium Phosphorus Magnesium Iron TIBC % Saturation Ferritin Total Bilirubin AST ALT Alkaline Phosphatase Total Protein Albumin Globulin Albumin/Globulin Ratio Blood Type B POSITIVE Antibody Screen Negative Fingerstick Blood Sugar Results: 93 Review of Systems - Cardiovascular Cardiovascular: Dyspnea (improving). absent: Chest Pain - Respiratory Respiratory: Dyspnea. absent: Cough - Gastrointestinal Gastrointestinal: absent: Abdominal Pain, Constipation, Diarrhea, Nausea, Vomiting - Genitourinary Genitourinary: absent: Dysuria - Neurological Neurological: Tremor. absent: Dizziness, Headaches Critical Care Progress Note - Nutrition Nutrition: Nutrition Category Date Time Status Consistent Carbohydrate [DIET] Diets 11/10/16 Dinner Active Assessment/Plan (1) Pneumothorax Assessment and plan: 45yo M. Homeless with no know PMHx. Presented with strep bacteremia c/b acute renal failure requiring initiation of dialysis. Hospital course c/b ARDS with spontaneous pneumothorax now s/p pigtail catheter. Chest CT ordered to determine status of pneumothorax. Patient is to continue course of anitiobiotics via PICC line for total of 4 weeks (to end on 11/23/16). Pulmonary edema has improved, pigtail CT to be removed. Neuro: Alert and oriented 3 Pulm: Spontaneous pneumothorax secondary to recent episode of ARDS. - Remove Pigtail chest tube - CXR: small pleural effusions, patchy lower lobe airspace opacities - CT of chest: improvement of pulm edema; persistent left pleural effusion which has decreased compared to prior study. - Patient was on BiPAP over night CV: Hemodynamically stable Hem: leukocytosis decreased today, will monitor. Renal: Acute kidney injury now requiring dialysis (MWF). - Had dialysis yesterday and today Endo: No acute issues GI: Carb consistent diet ID: Sepsis resolved, recent strep bacteremia, continue IV antibiotics for 4 weeks since negative blood culture. IV meropenem and micafungin, to stop November 23/2017. Prophylaxis: - DVT- discontinued heparin - GI- Pepcid - Walters for strict I/O's during acute illness Permacath (10/30/16) PICC line () Code status - full code Current Visit: Yes Status: Acute <Luli Gomezudhry S - Last Filed: 11/11/16 15:26> CCU Objective - Vital Signs / Intake & Output Vital Signs (Last 4 hours): Vital Signs Temp Pulse Resp BP Pulse Ox 11/11/16 14:00 89 18 95 11/11/16 13:41 90 17 102/61 95 11/11/16 13:00 94 H 20 95 11/11/16 12:41 98 H 15 108/72 79 L 11/11/16 12:00 99.8 F H 89 20 95 11/11/16 11:41 84 17 99/57 L 93 L Intake and Output (Last 8hrs): Intake & Output 11/11/16 11/11/16 11/11/16 06:59 14:59 22:59 Intake Total 0 450 Output Total 300 200 Balance -300 250 Intake: Intake, IV Amount 100 Left PICC 100 Oral 0 350 Output: Urine 300 200 Urine, Voided 300 200 Other: # Voids Urine, Voided 1 # Bowel Movements 1 1 - Medications Active Medications: Active Medications Generic Name Dose Route Start Last Admin Trade Name Freq PRN Reason Stop Dose Admin Acetaminophen 650 mg 10/25/16 11:56 11/02/16 23:46 Tylenol 650mg/20.3ml Solution Ud PO 650 mg Q6 PRN Administration Temperature Acetaminophen 650 mg 11/11/16 15:30 Tylenol 325mg Tab PO 11/11/16 15:31 PRN ONE Albumin Human 12.5 gm 10/26/16 18:45 10/27/16 12:01 Albumin Human 25% (12.5 Gm/50 Ml) IV Not Given Q8H MIRA Albuterol/Ipratropium 3 ml 11/10/16 20:00 11/11/16 13:15 Duoneb 3 Mg/0.5 Mg (3 Ml) Ud INH 3 ml RQ6 MIRA Administration Diphenhydramine HCl 25 mg 11/11/16 15:30 Benadryl PO 11/11/16 15:31 PRN ONE Epoetin Humphrey 10,000 unit 11/02/16 14:45 11/06/16 22:23 Procrit IV 10,000 unit MWF MIRA Administration Micafungin Sodium 100 mg/ 100 mls @ 100 mls/hr 11/01/16 17:30 11/10/16 17:06 Sodium Chloride IV 100 mls/hr Q24H MIRA Administration Meropenem 500 mg/ Sodium 100 mls @ 100 mls/hr 11/01/16 17:45 11/11/16 07:47 Chloride IVPB 100 mls/hr Q12H MIRA Administration Insulin Human Regular 0 unit 11/05/16 16:30 11/11/16 12:00 Novolin R SC 1 unit ACHS MIRA Administration Protocol Lactic Acid 0 gm 10/22/16 13:00 11/11/16 10:52 Lac-Hydrin 12% Lotion (225 G) EXT 1 applic BID MIRA Administration Multivitamins 1 tab 11/06/16 10:00 11/11/16 10:48 Hexavitamin PO 1 tab DAILY MIRA Administration Pantoprazole Sodium 40 mg 11/06/16 10:00 11/11/16 10:49 Protonix Ec Tab PO 40 mg DAILY MIRA Administration Saccharomyces Boulardii 250 mg 11/09/16 10:00 11/11/16 10:49 Florastor PO 250 mg BID MIRA Administration Sevelamer Carbonate 800 mg 11/06/16 12:00 11/11/16 11:59 Renvela PO 800 mg TIDCC MIRA Administration - Patient Studies Lab Studies: Lab Studies 11/11/16 11/11/16 11/11/16 Range/Units 11:16 09:46 07:11 WBC (4.8-10.8) K/uL RBC (4.40-5.90) Mil/uL Hgb (12.0-18.0) g/dL Hct (35.0-51.0) % MCV (80.0-94.0) fL MCH (27.0-31.0) pg MCHC (33.0-37.0) g/dL RDW (11.5-14.5) % Plt Count (130-400) K/uL MPV (7.2-11.7) fL Neut % (Auto) (50.0-75.0) % Lymph % (Auto) (20.0-40.0) % [place] % (Auto) (0.0-10.0) % Eos % (Auto) (0.0-4.0) % Baso % (Auto) (0.0-2.0) % Neut # (1.8-7.0) K/uL Lymph # (1.0-4.3) K/uL [place] # (0.0-0.8) K/uL Eos # (0.0-0.7) K/uL Baso # (0.0-0.2) K/uL Neutrophils % (Manual) (50-75) % Lymphocytes % (Manual) (20-40) % Monocytes % (Manual) (0-10) % Eosinophils % (Manual) (0-4) % Platelet Estimate (NORMAL) Hypochromasia (manual) Poikilocytosis (manual Anisocytosis (manual) Target Cells Ja Cells Sodium (132-148) mmol/L Potassium (3.6-5.2) mmol/L Chloride (98-107) mmol/L Carbon Dioxide (22-30) mmol/L Anion Gap (10-20) BUN (9-20) mg/dL Creatinine (0.8-1.5) MG/DL Est GFR ( Amer) Est GFR (Non-Af Amer) POC Glucose (mg/dL) 169 H 93 (65-110) mg/dL Random Glucose (75-110) mg/dL Calcium (8.6-10.4) mg/dl Phosphorus (2.5-4.5) mg/dL Magnesium (1.6-2.3) mg/dL Total Bilirubin (0.2-1.3) mg/dL AST (17-59) U/L ALT (21-72) U/L Alkaline Phosphatase (38-126) U/L Total Protein (6.3-8.3) g/dL Albumin (3.5-5.0) g/dL Globulin (2.2-3.9) gm/dL Albumin/Globulin Ratio (1.0-2.1) Blood Type B POSITIVE Antibody Screen Negative 11/11/16 11/11/16 11/10/16 Range/Units 06:27 06:27 21:13 WBC 15.6 H (4.8-10.8) K/uL RBC 2.34 L (4.40-5.90) Mil/uL Hgb 7.6 L (12.0-18.0) g/dL Hct 23.2 L (35.0-51.0) % MCV 99.2 H (80.0-94.0) fL MCH 32.7 H (27.0-31.0) pg MCHC 33.0 (33.0-37.0) g/dL RDW 15.0 H (11.5-14.5) % Plt Count 64 L (130-400) K/uL MPV 11.0 (7.2-11.7) fL Neut % (Auto) 84.4 H (50.0-75.0) % Lymph % (Auto) 6.9 L (20.0-40.0) % [place] % (Auto) 2.9 (0.0-10.0) % Eos % (Auto) 5.5 H (0.0-4.0) % Baso % (Auto) 0.3 (0.0-2.0) % Neut # 13.1 H (1.8-7.0) K/uL Lymph # 1.1 (1.0-4.3) K/uL [place] # 0.5 (0.0-0.8) K/uL Eos # 0.9 H (0.0-0.7) K/uL Baso # 0.0 (0.0-0.2) K/uL Neutrophils % (Manual) 88 H (50-75) % Lymphocytes % (Manual) 6 L (20-40) % Monocytes % (Manual) 1 (0-10) % Eosinophils % (Manual) 5 H (0-4) % Platelet Estimate Decreased L (NORMAL) Hypochromasia (manual) Moderate Poikilocytosis (manual Slight Anisocytosis (manual) Slight Target Cells Slight Ja Cells Slight Sodium 134 (132-148) mmol/L Potassium 3.4 L (3.6-5.2) mmol/L Chloride 96 L (98-107) mmol/L Carbon Dioxide 27 (22-30) mmol/L Anion Gap 14 (10-20) BUN 39 H (9-20) mg/dL Creatinine 2.3 H (0.8-1.5) MG/DL Est GFR ( Amer) 37 Est GFR (Non-Af Amer) 31 POC Glucose (mg/dL) 107 (65-110) mg/dL Random Glucose 84 (75-110) mg/dL Calcium 7.4 L (8.6-10.4) mg/dl Phosphorus 4.5 (2.5-4.5) mg/dL Magnesium 1.8 (1.6-2.3) mg/dL Total Bilirubin 2.2 H (0.2-1.3) mg/dL AST 52 (17-59) U/L ALT 54 (21-72) U/L Alkaline Phosphatase 139 H (38-126) U/L Total Protein 6.3 (6.3-8.3) g/dL Albumin 2.7 L (3.5-5.0) g/dL Globulin 3.7 (2.2-3.9) gm/dL Albumin/Globulin Ratio 0.7 L (1.0-2.1) Blood Type Antibody Screen 11/10/16 Range/Units 16:06 WBC (4.8-10.8) K/uL RBC (4.40-5.90) Mil/uL Hgb (12.0-18.0) g/dL Hct (35.0-51.0) % MCV (80.0-94.0) fL MCH (27.0-31.0) pg MCHC (33.0-37.0) g/dL RDW (11.5-14.5) % Plt Count (130-400) K/uL MPV (7.2-11.7) fL Neut % (Auto) (50.0-75.0) % Lymph % (Auto) (20.0-40.0) % [place] % (Auto) (0.0-10.0) % Eos % (Auto) (0.0-4.0) % Baso % (Auto) (0.0-2.0) % Neut # (1.8-7.0) K/uL Lymph # (1.0-4.3) K/uL [place] # (0.0-0.8) K/uL Eos # (0.0-0.7) K/uL Baso # (0.0-0.2) K/uL Neutrophils % (Manual) (50-75) % Lymphocytes % (Manual) (20-40) % Monocytes % (Manual) (0-10) % Eosinophils % (Manual) (0-4) % Platelet Estimate (NORMAL) Hypochromasia (manual) Poikilocytosis (manual Anisocytosis (manual) Target Cells [place] Cells Sodium (132-148) mmol/L Potassium (3.6-5.2) mmol/L Chloride (98-107) mmol/L Carbon Dioxide (22-30) mmol/L Anion Gap (10-20) BUN (9-20) mg/dL Creatinine (0.8-1.5) MG/DL Est GFR ( Amer) Est GFR (Non-Af Amer) POC Glucose (mg/dL) 117 H (65-110) mg/dL Random Glucose (75-110) mg/dL Calcium (8.6-10.4) mg/dl Phosphorus (2.5-4.5) mg/dL Magnesium (1.6-2.3) mg/dL Total Bilirubin (0.2-1.3) mg/dL AST (17-59) U/L ALT (21-72) U/L Alkaline Phosphatase (38-126) U/L Total Protein (6.3-8.3) g/dL Albumin (3.5-5.0) g/dL Globulin (2.2-3.9) gm/dL Albumin/Globulin Ratio (1.0-2.1) Blood Type Antibody Screen Laboratory Results - last 24 hr 11/10/16 11/10/16 11/11/16 16:06 21:13 06:27 WBC 15.6 H RBC 2.34 L Hgb 7.6 L Hct 23.2 L MCV 99.2 H MCH 32.7 H MCHC 33.0 RDW 15.0 H Plt Count 64 L MPV 11.0 Neut % (Auto) 84.4 H Lymph % (Auto) 6.9 L [place] % (Auto) 2.9 Eos % (Auto) 5.5 H Baso % (Auto) 0.3 Neut # 13.1 H Lymph # 1.1 [place] # 0.5 Eos # 0.9 H Baso # 0.0 Neutrophils % (Manual) 88 H Lymphocytes % (Manual) 6 L Monocytes % (Manual) 1 Eosinophils % (Manual) 5 H Platelet Estimate Decreased L Hypochromasia (manual) Moderate Poikilocytosis (manual Slight Anisocytosis (manual) Slight Target Cells Slight Ja Cells Slight Sodium Potassium Chloride Carbon Dioxide Anion Gap BUN Creatinine Est GFR ( Amer) Est GFR (Non-Af Amer) POC Glucose (mg/dL) 117 H 107 Random Glucose Calcium Phosphorus Magnesium Total Bilirubin AST ALT Alkaline Phosphatase Total Protein Albumin Globulin Albumin/Globulin Ratio Blood Type Antibody Screen 11/11/16 11/11/16 11/11/16 06:27 07:11 09:46 WBC RBC Hgb Hct MCV MCH MCHC RDW Plt Count MPV Neut % (Auto) Lymph % (Auto) [place] % (Auto) Eos % (Auto) Baso % (Auto) Neut # Lymph # [place] # Eos # Baso # Neutrophils % (Manual) Lymphocytes % (Manual) Monocytes % (Manual) Eosinophils % (Manual) Platelet Estimate Hypochromasia (manual) Poikilocytosis (manual Anisocytosis (manual) Target Cells Ja Cells Sodium 134 Potassium 3.4 L Chloride 96 L Carbon Dioxide 27 Anion Gap 14 BUN 39 H Creatinine 2.3 H Est GFR ( Amer) 37 Est GFR (Non-Af Amer) 31 POC Glucose (mg/dL) 93 Random Glucose 84 Calcium 7.4 L Phosphorus 4.5 Magnesium 1.8 Total Bilirubin 2.2 H AST 52 ALT 54 Alkaline Phosphatase 139 H Total Protein 6.3 Albumin 2.7 L Globulin 3.7 Albumin/Globulin Ratio 0.7 L Blood Type B POSITIVE Antibody Screen Negative 11/11/16 11:16 WBC RBC Hgb Hct MCV MCH MCHC RDW Plt Count MPV Neut % (Auto) Lymph % (Auto) [place] % (Auto) Eos % (Auto) Baso % (Auto) Neut # Lymph # [place] # Eos # Baso # Neutrophils % (Manual) Lymphocytes % (Manual) Monocytes % (Manual) Eosinophils % (Manual) Platelet Estimate Hypochromasia (manual) Poikilocytosis (manual Anisocytosis (manual) Target Cells Ja Cells Sodium Potassium Chloride Carbon Dioxide Anion Gap BUN Creatinine Est GFR ( Amer) Est GFR (Non-Af Amer) POC Glucose (mg/dL) 169 H Random Glucose Calcium Phosphorus Magnesium Total Bilirubin AST ALT Alkaline Phosphatase Total Protein Albumin Globulin Albumin/Globulin Ratio Blood Type Antibody Screen Critical Care Progress Note - Nutrition Nutrition: Nutrition Category Date Time Status Consistent Carbohydrate [DIET] Diets 11/10/16 Dinner Active Assessment/Plan (1) Acute respiratory failure with hypoxemia Current Visit: Yes Status: Acute Comment: Patient placed on BiPAP for worsening pulmonary edema Continue hemodialysis Continue the antibiotics remove pigtail catheter Continue to monitor in ICU (2) Acute renal failure (ARF) Current Visit: Yes Status: Acute Comment: Continue hemodialysis (3) Pneumonia Current Visit: Yes Status: Acute Comment: Continue antibiotics as per infectious disease Attending/Attestation - Attestation I have personally seen and examined this patient.: Yes I have fully participated in the care of the patient.: Yes I have reviewed all pertinent clinical information: Yes Notes (Text): 11/11/16 15:25 Patient seen and examined in the intensive care unit. Case discussed with the staff in the morning rounds. Status post hemodialysis yesterday with significant improvement in oxygen saturation and shortness of breath Continue hemodialysis Discontinue pigtail catheter Follow-up chest x-ray Monitor platelet count
[2016-11-11] MEDS: Multiple Vitamins Tab PO SCH (10:48)
[2016-11-11] MEDS: Pantoprazole 40 mg EC Tab PO SCH (10:49)
[2016-11-11] MEDS: Saccharomyces Boulardi 250 mg Cap PO SCH ×2 (10:49→18:25)
[2016-11-11] MEDS: Ammonium Lactate 12% Lotion (225 g) EXT SCH ×2 (10:52→19:54)
--- NOTE | 2016-11-11 12:55 | RAD ---
HISTORY: left chest tube COMPARISON: Chest x-ray performed 11/10/16 TECHNIQUE: Chest, one view. FINDINGS: Right-sided dialysis catheter extends the cavoatrial junction. Left-sided PICC extends to the cavoatrial junction. Examination limited by habitus, hypoinflation, and patient obliquity. LUNGS: Patchy lower lobe airspace opacities and diffuse interstitial prominence. Small bilateral pleural effusions. No definite pneumothorax. Please note that chest x-ray has limited sensitivity for the detection of pulmonary masses. CARDIOVASCULAR: Heart size appears within normal limits. OSSEOUS STRUCTURES: Degenerative changes. VISUALIZED UPPER ABDOMEN: Unremarkable. OTHER FINDINGS: None. IMPRESSION: Right-sided dialysis catheter extends to the cavoatrial junction. Left-sided PICC extends to the cavoatrial junction. Patchy lower lobe airspace opacities and diffuse interstitial prominence. Small bilateral pleural effusions.
[2016-11-11] MEDS: Micafungin 100 MG in Sodium Chloride 0.9% 100 ML IV SCH (16:43)
--- NOTE | 2016-11-11 17:12 | CP.PCM.PN ---
Subjective - Date & Time of Evaluation Date of Evaluation: 11/11/16 Time of Evaluation: 05:00 - Subjective Subjective: no recent positive cultures has been treated for 6 weeks with iv rx will d/c antibiotics and reculture for fever Objective - Vital Signs/Intake and Output Vital Signs (last 24 hours): Temp Pulse Resp BP Pulse Ox 99.8 F H 90 19 102/61 96 11/11/16 12:00 11/11/16 16:00 11/11/16 16:00 11/11/16 15:41 11/11/16 16:00 Intake and Output: 11/11/16 11/11/16 06:59 18:59 Intake Total 300 550 Output Total 300 200 Balance 0 350 - Medications Medications: Current Medications Acetaminophen (Tylenol 650mg/20.3ml Solution Ud) 650 mg PO Q6 PRN PRN Reason: Temperature Last Admin: 11/02/16 23:46 Dose: 650 mg Albumin Human (Albumin Human 25% (12.5 Gm/50 Ml)) 12.5 gm IV Q8H [facility] Last Admin: 10/27/16 12:01 Dose: Not Given Albuterol/Ipratropium (Duoneb 3 Mg/0.5 Mg (3 Ml) Ud) 3 ml INH RQ6 [facility] Last Admin: 11/11/16 13:15 Dose: 3 ml Epoetin Humphrey (Procrit) 10,000 unit IV MWF [facility] Last Admin: 11/06/16 22:23 Dose: 10,000 unit Insulin Human Regular (Novolin R) 0 unit SC ACHS [facility] PRN Reason: Protocol Last Admin: 11/11/16 16:36 Dose: Not Given Lactic Acid (Lac-Hydrin 12% Lotion (225 G)) 0 gm EXT BID [facility] Last Admin: 11/11/16 10:52 Dose: 1 applic Multivitamins (Hexavitamin) 1 tab PO DAILY [facility] Last Admin: 11/11/16 10:48 Dose: 1 tab Pantoprazole Sodium (Protonix Ec Tab) 40 mg PO DAILY [facility] Last Admin: 11/11/16 10:49 Dose: 40 mg Saccharomyces Boulardii (Florastor) 250 mg PO BID [facility] Last Admin: 11/11/16 10:49 Dose: 250 mg Sevelamer Carbonate (Renvela) 800 mg PO TIDCC [facility] Last Admin: 11/11/16 16:48 Dose: 800 mg - Labs Labs: 11/11/16 06:27 11/11/16 06:27 PT 17.7 SECONDS (9.7-12.2) H 10/29/16 06:22 INR 1.6 10/29/16 06:22 APTT 30 SECONDS (21-34) 10/29/16 06:22 Assessment and Plan (1) Seizure disorder Status: Acute (2) Seizure disorder Status: Acute (3) Sepsis Status: Acute (4) Sepsis Status: Acute (5) Alcohol withdrawal Status: Acute (6) Hypoxemia Status: Acute (7) Pneumonia Status: Acute (8) Respiratory distress Status: Acute (9) Psoriasis Status: Acute
[2016-11-11] MEDS: EPOETIN ALFA 10,000 UNIT/ML ML IV SCH ×3 (18:55→18:59)
[2016-11-12] MEDS: Albuterol-Ipratrop 3 mg / 0.5 (3 ml) UD INH SCH ×4 (01:10→19:31)
[2016-11-12 06:18] LABS: BASO # 0.1 K/uL (0.0-0.2); BASO % 0.4 % (0.0-2.0); EOS # 1.1 K/uL (0.0-0.7); EOS % 8.5 % (0.0-4.0); HEMATOCRIT 24.4 % (35.0-51.0); LYMPH % 7.5 % (20.0-40.0); MEAN CELL VOLUME 96.8 fL (80.0-94.0); MEAN CORPUSCULAR HEMOGLOBIN 32.9 pg (27.0-31.0); MEAN PLATELET VOLUME 10.3 fL (7.2-11.7); MONO # 0.4 K/uL (0.0-0.8); MONO % 2.7 % (0.0-10.0); PLATELET COUNT 56 K/uL (130-400); RED CELL DISTRIBUTION WIDTH 16.1 % (11.5-14.5); WHITE BLOOD COUNT 13.2 K/uL (4.8-10.8)
[2016-11-12 06:41] LABS: ALB/GLOB RATIO 0.7 (1.0-2.1); BILIRUBIN,TOTAL 2.1 mg/dL (0.2-1.3); CALCIUM 7.5 mg/dl (8.6-10.4); MAGNESIUM 1.8 mg/dL (1.6-2.3); PHOSPHOROUS 4.3 mg/dL (2.5-4.5); POTASSIUM 3.5 mmol/L (3.6-5.2); TOTAL PROTEIN 6.4 g/dL (6.3-8.3)
[2016-11-12] MEDS: (Novolin R) Insulin Human Regular 100 units/ml vial SC SCH ×4 (08:29→21:45)
[2016-11-12 08:35] LABS: EOSINOPHIL 6 % (0-4); NEUTROPHIL 81 % (50-75); TOTAL CELLS COUNTED 100
[2016-11-12 08:38] LABS: LARGE PLATELETS PRESENT
[2016-11-12] MEDS: Saccharomyces Boulardi 250 mg Cap PO SCH ×2 (10:12→17:27)
[2016-11-12] MEDS: Ammonium Lactate 12% Lotion (225 g) EXT SCH ×2 (10:13→17:28)
[2016-11-12] MEDS: Pantoprazole 40 mg EC Tab PO SCH (10:13)
[2016-11-12] MEDS: Multiple Vitamins Tab PO SCH (10:13)
--- NOTE | 2016-11-12 11:35 | CP.PCM.PN ---
Subjective - Date & Time of Evaluation Date of Evaluation: 11/12/16 Time of Evaluation: 11:00 - Subjective Subjective: Sitting in recliner Appears comfortable Denies feeling SOB Objective - Vital Signs/Intake and Output Vital Signs (last 24 hours): Temp Pulse Resp BP Pulse Ox 98.3 F 99 H 24 98/57 L 70 L 11/12/16 08:00 11/12/16 11:09 11/12/16 11:09 11/12/16 11:09 11/12/16 10:25 Intake and Output: 11/12/16 11/12/16 06:59 18:59 Intake Total 445 0 Output Total 0 Balance 445 0 - Medications Medications: Current Medications Acetaminophen (Tylenol 650mg/20.3ml Solution Ud) 650 mg PO Q6 PRN PRN Reason: Temperature Last Admin: 11/02/16 23:46 Dose: 650 mg Albumin Human (Albumin Human 25% (12.5 Gm/50 Ml)) 12.5 gm IV Q8H [facility] Last Admin: 10/27/16 12:01 Dose: Not Given Albuterol/Ipratropium (Duoneb 3 Mg/0.5 Mg (3 Ml) Ud) 3 ml INH RQ6 [facility] Last Admin: 11/12/16 07:29 Dose: 3 ml Epoetin Humphrey (Procrit) 10,000 unit IV MWF [facility] Last Admin: 11/11/16 18:59 Dose: Not Given Insulin Human Regular (Novolin R) 0 unit SC ACHS [facility] PRN Reason: Protocol Last Admin: 11/12/16 08:29 Dose: Not Given Lactic Acid (Lac-Hydrin 12% Lotion (225 G)) 0 gm EXT BID [facility] Last Admin: 11/12/16 10:13 Dose: 1 applic Multivitamins (Hexavitamin) 1 tab PO DAILY [facility] Last Admin: 11/12/16 10:13 Dose: 1 tab Pantoprazole Sodium (Protonix Ec Tab) 40 mg PO DAILY [facility] Last Admin: 11/12/16 10:13 Dose: 40 mg Saccharomyces Boulardii (Florastor) 250 mg PO BID [facility] Last Admin: 11/12/16 10:12 Dose: 250 mg Sevelamer Carbonate (Renvela) 800 mg PO TIDCC [facility] Last Admin: 11/12/16 08:28 Dose: 800 mg - Labs Labs: 11/12/16 06:10 11/12/16 06:10 PT 17.7 SECONDS (9.7-12.2) H 10/29/16 06:22 INR 1.6 10/29/16 06:22 APTT 30 SECONDS (21-34) 10/29/16 06:22 - Respiratory Exam Respiratory Exam: NORMAL BREATHING PATTERN Additional comments: Lungs clear - GI/Abdominal Exam GI & Abdominal Exam: Soft - Extremities Exam Additional comments: No edema Assessment and Plan - Assessment and Plan (Free Text) Assessment: RUPALI, Renal function continues to improve Pneumpnia , with pleural effusion Alcoholism. Liver cirrhosis Plan: Will hold dialysis today BP is 82/50 Wikk re evaluate for dialysis tomorrow Monitor renal function
--- NOTE | 2016-11-12 15:05 | RAD ---
HISTORY: CHEST TUBE COMPARISON: Chest x-ray performed 11/11/16 TECHNIQUE: Chest, one view. FINDINGS: Examination limited by habitus and hypoinflation. Right-sided dialysis catheter extends the cavoatrial junction. Left-sided PICC extends to the distal SVC. LUNGS: Interstitial prominence may reflect infection or edema. Probable small left pleural effusion. Bibasilar atelectasis or infiltrates. No definite pneumothorax. CARDIOVASCULAR: Cardiomegaly. OSSEOUS STRUCTURES: Degenerative changes. VISUALIZED UPPER ABDOMEN: Unremarkable. OTHER FINDINGS: None. IMPRESSION: Right-sided dialysis catheter extends the cavoatrial junction. Left-sided PICC extends to the distal SVC. Interstitial prominence may reflect infection or edema. Probable small left pleural effusion. Bibasilar atelectasis or infiltrates. Borderline cardiomegaly.
--- NOTE | 2016-11-12 17:32 | CP.PCM.PN ---
Subjective - Date & Time of Evaluation Date of Evaluation: 11/12/16 Time of Evaluation: 17:15 - Subjective Subjective: Hospitalist Progress Note (Patient was seen and examined at 5:15 PM 11/12/16) 45 year old male who presented to the ER here at [facility] on 10/21/16 intoxicated with complaints of cough and abdominal pain. He was found to be hypotensive, hypoxic, with RUL/RML Pneumonia. He eventually required intubation and ventilator support. He was also found to be in Acute Renal Failure and started receiving HD through Right Femoral Access on Wednesday10/23/16, 10/26, and 10/27/16. He was for Right Perm Cath with Dr. De La Vega for 10/28/16 however as his platelets declined, this was put on hold and patient was transfused 2 bags of platelets as per ICU Team. He became hypotensive on and therefore was started on Norepinephrine Drip, Albumin, and Solumedrol. Chest X Ray on 10/29/16 showed Left Pneumothorax and [employer] has placed a left sided chest tube pigtail catheter and repeat Chest X Ray showed re -expansion of the Left Lung. He had Right Perm Cath and Left Arm PICC Line placed 10/30/16. He was eventually extubated on 11/04/16. His Chest Tube Pigtail Catheter was removed on 11/12/16. NO chest pain, NO palpitation, NO dyspnea/chest tightness, NO dysphagia/ odynophagia with eating/drinking, NO abdominal pain, NO n/v/d/c (his last bowel movement was earlier today x 2 and NO diearrhea), NO burning/pain with urination , NO lightheadedness/dizziness while in bed, NO headaches, NO new changes in vision/eye pain/loss of vision, NO new changes in hearing/ear pain/loss of hearing, NO paresthesias. GENERAL: Patient was asleep but easily arousable. Knows who he is, where he is, and why he is hear. He was told today's date. NO apparent distress at this time and speaking in full sentences with no signs of respiratory distress. HEENT: NCA, Pupils are round/reactive to light, Slight Scleral Incterus, NO lymphadenopathy, NO JVD, NO thyromegaly, Nasal turbinates are nonerythematous/ nonedematous/moist, Oral mucosa is dry. Cardio: NS1 and NS2, Systolic Ejection heard best along left sternal border Resp: There are NO longer any decreased breath sounds on the left and lung exam is CTA B/L, NO R/R/W GI: BSx4, Distention, Liver and Spleen could not be adequately palpated secondary to distention, Soft, NT, NO guarding/rebound tenderness Ext: Pulses are strong and equal, Capillary Refill is 2 seconds, NO cyanosis, NO edema, Patches of Psoriasis on the bilateral elbows/bilateral anterior lower legs Neuro: CN II through XII are grossly intact Skin: Bilateral Groin fungal rash has disappeared Assessment and Plan (1) Alcohol withdrawal Assessment & Plan: NO signs of DTs at the time of my exam Thiamine 100 mg IV 1x/day Folic Acid 1 mg IV 1x/day Status: Acute (2) Hypoxemia/Respiratory Distress Assessment & Plan: Patient was extubated on 11/04/16 Status: Acute (3). Left Pneumothorax/Left Loculated Effusion As per Chest X Ray 11/08/16: moderate loculated left sided pleuaral effusion, moderate to severe venous congestion with confluent consolidative changes at the left mid to lower lung zone, upper lobe granulomatous changes CT Chest 11/09/16 showed improvement in pulmonary edema, persistant Left Pleural Effusion but decreased in size, compressive atelectasis in left lower lobe Chest X Ray 11/10/16 show no change in left hemithorax appearance but decrease in right pleural effusion Chest X Ray 11/11/16 shows no change when compared to 11/10/16, however follow up official reading Chest X Ray 11/12/16 shows interstitial prominence which may reflect infection or edema, probable small pleural effusion, bibasilar atelectasis or infiltrates Chest Tube Pigtail Catheter was removed by ICU Team 11/12/16 (4)Sepsis Secondary to Pneumonia and Bacteremia Assessment & Plan: Patient received a total of 3 weeks of IV Antibiotics and ID Dr. Bowers has discontinued them Blood Culture 10/21/16 showed S. pneumoniae Blood Culture 10/26/16 showed Coag Neg Staph Repeat Blood Cultures on 10/28/16 and 11/01/16 were negative at 5 days Sputum Culture 11/01/16 was negative Status: Acute (5). Hypotension Episodes of Hypotension and therefore HD was held by Nephrology Dr. Merida (6) Seizure disorder Assessment & Plan: Secondary to alcohol withdrawal. NO recent seizure reported Neurology Dr. Pineda Status: Acute (7) Thrombocytopenia Assessment & Plan: Likely Secondary to alcohol abuse. Heparin Abs were also ordered on 10/30/16 and this is NEGATIVE Currently at 63 Status: Chronic (8) Psoriasis Status: Acute (9) Renal failure Assessment & Plan: Renal U/S 10/24/16 showed nonobstructing calculus upper/midpole Right Kidney and Abdominal Ascites Hepatitis Panel is negative Patient was receiving HD through Right Femoral Catheter and this was removed on 10/31/16 S/P Right Chest Perm Cath placement by Vascular Surgeon Dr. De La Vega . HD through Right Chest Perm Cath as per Nephrology Dr. Merida/Derian HD held today 11/12/16 secondary to episodes of Hypotension Sevelamer 800mg PO TID Status: Acute (10). Anemia Likely Secondary to Chronic Alcohol Use and Renal Failure Stool Occult Blood 10/21/16 is negative Stool Occult Blood 11/11/16 was positive: monitor HgB/Hct and continues to drop then consider GI evaluation HgB/Hct are 8.3/24.4 after 1 unit PRBC after HD on 11/11/16 Procrit M-W-F 10,000 Units IV Ferrlecit 125 mg IV 1x/day Continue to monitor (11). Hypokalemia 3.4 today (12). Bilateral Groin Fungal Rash Resolved Nystatin Powder 2x/day for 2 weeks started on 10/26/16 and last dose on 11/09/16 (13). Elevated LFTs Likely secondary to history of Alcohol Abuse Monitor (14). Prophylactic Measures Bilateral SCDs Protonix 40 mg IV 1x/day Acetaminophen 650 mg PO Q6H PRN Temp/Fever Florastor 250 mg PO 2x/day Albuterol 2.5 mg INH Q6H Novolin Regular ISS with Accuchecks NO ANTICOAGULATION CONSIDERING THE ANEMIA AND THE THROMBOCYTOPENIA. Objective - Vital Signs/Intake and Output Vital Signs (last 24 hours): Temp Pulse Resp BP Pulse Ox 99 F 100 H 17 107/66 97 11/12/16 16:00 11/12/16 16:25 11/12/16 16:25 11/12/16 16:25 11/12/16 16:00 Intake and Output: 11/12/16 11/12/16 06:59 18:59 Intake Total 445 575 Output Total 0 135 Balance 445 440 - Medications Medications: Current Medications Acetaminophen (Tylenol 650mg/20.3ml Solution Ud) 650 mg PO Q6 PRN PRN Reason: Temperature Last Admin: 11/02/16 23:46 Dose: 650 mg Albumin Human (Albumin Human 25% (12.5 Gm/50 Ml)) 12.5 gm IV Q8H [facility] Last Admin: 10/27/16 12:01 Dose: Not Given Albuterol/Ipratropium (Duoneb 3 Mg/0.5 Mg (3 Ml) Ud) 3 ml INH RQ6 [facility] Last Admin: 11/12/16 13:18 Dose: 3 ml Epoetin Humphrey (Procrit) 10,000 unit IV MWF [facility] Last Admin: 11/11/16 18:59 Dose: Not Given Insulin Human Regular (Novolin R) 0 unit SC ACHS [facility] PRN Reason: Protocol Last Admin: 11/12/16 16:40 Dose: Not Given Lactic Acid (Lac-Hydrin 12% Lotion (225 G)) 0 gm EXT BID [facility] Last Admin: 11/12/16 17:28 Dose: 1 applic Multivitamins (Hexavitamin) 1 tab PO DAILY [facility] Last Admin: 11/12/16 10:13 Dose: 1 tab Pantoprazole Sodium (Protonix Ec Tab) 40 mg PO DAILY [facility] Last Admin: 11/12/16 10:13 Dose: 40 mg Saccharomyces Boulardii (Florastor) 250 mg PO BID [facility] Last Admin: 11/12/16 17:27 Dose: 250 mg Sevelamer Carbonate (Renvela) 800 mg PO TIDCC [facility] Last Admin: 11/12/16 17:27 Dose: 800 mg - Labs Labs: 11/12/16 06:10 11/12/16 06:10 PT 17.7 SECONDS (9.7-12.2) H 10/29/16 06:22 INR 1.6 10/29/16 06:22 APTT 30 SECONDS (21-34) 10/29/16 06:22
--- NOTE | 2016-11-12 18:33 | CP.CCUPN ---
CCU Subjective - Physician Review Events Since Last Encounter (Free Text): 11/12/16 18:30 patient feels well, no complaints, removing chest tube today. CCU Objective - Vital Signs / Intake & Output Vital Signs (Last 4 hours): Vital Signs Temp Pulse Resp BP Pulse Ox 11/12/16 16:25 100 H 17 107/66 11/12/16 16:00 99 F 94 H 17 97 11/12/16 15:25 93 H 17 95/60 L 11/12/16 15:00 89 17 70 L Intake and Output (Last 8hrs): Intake & Output 11/12/16 11/12/16 11/12/16 06:59 14:59 22:59 Intake Total 120 450 125 Output Total 0 135 0 Balance 120 315 125 Intake: Oral 120 450 125 Output: Chest Tube Drainage 0 10 0 Left Mid-Axillary Chest 0 10 0 Urine 125 Urine, Voided 125 Other: # Bowel Movements 1 - Physical Exam Head: Positive for: Atraumatic, Normocephalic Extroacular Muscles: Positive for: EOMI Mouth: Positive for: Moist Mucous Membranes Respiratory/Chest: Positive for: Decreased Breath Sounds (L>R) Cardiovascular: Positive for: Regular Rate and Rhythm, Normal S1, S2 Abdomen: Positive for: Distention, Normal Bowel Sounds Genitourinary Male: Positive for: Other (walters in place) Upper Extremity: Negative for: Edema Lower Extremity: Negative for: Edema Neurological: Positive for: Other (tremors) Skin: Positive for: Warm, Dry, Normal Color, Other (Psoriasis located on b/l knees, bilateral upper extremities) Psychiatric: Positive for: Alert, Oriented x 3 - Medications Active Medications: Active Medications Generic Name Dose Route Start Last Admin Trade Name Freq PRN Reason Stop Dose Admin Acetaminophen 650 mg 10/25/16 11:56 11/02/16 23:46 Tylenol 650mg/20.3ml Solution Ud PO 650 mg Q6 PRN Administration Temperature Albumin Human 12.5 gm 10/26/16 18:45 10/27/16 12:01 Albumin Human 25% (12.5 Gm/50 Ml) IV Not Given Q8H MIRA Albuterol/Ipratropium 3 ml 11/10/16 20:00 11/12/16 13:18 Duoneb 3 Mg/0.5 Mg (3 Ml) Ud INH 3 ml RQ6 MIRA Administration Epoetin Humphrey 10,000 unit 11/02/16 14:45 11/11/16 18:59 Procrit IV Not Given MWF [facility] Insulin Human Regular 0 unit 11/05/16 16:30 11/12/16 16:40 Novolin R SC Not Given ACHS [facility] Protocol Lactic Acid 0 gm 10/22/16 13:00 11/12/16 17:28 Lac-Hydrin 12% Lotion (225 G) EXT 1 applic BID MIRA Administration Multivitamins 1 tab 11/06/16 10:00 11/12/16 10:13 Hexavitamin PO 1 tab DAILY MIRA Administration Pantoprazole Sodium 40 mg 11/06/16 10:00 11/12/16 10:13 Protonix Ec Tab PO 40 mg DAILY MIRA Administration Saccharomyces Boulardii 250 mg 11/09/16 10:00 11/12/16 17:27 Florastor PO 250 mg BID MIRA Administration Sevelamer Carbonate 800 mg 11/06/16 12:00 11/12/16 17:27 Renvela PO 800 mg TIDCC MIRA Administration - Patient Studies Lab Studies: Lab Studies 11/12/16 11/12/16 11/12/16 Range/Units 16:30 11:14 07:22 WBC (4.8-10.8) K/uL RBC (4.40-5.90) Mil/uL Hgb (12.0-18.0) g/dL Hct (35.0-51.0) % MCV (80.0-94.0) fL MCH (27.0-31.0) pg MCHC (33.0-37.0) g/dL RDW (11.5-14.5) % Plt Count (130-400) K/uL MPV (7.2-11.7) fL Neut % (Auto) (50.0-75.0) % Lymph % (Auto) (20.0-40.0) % [place] % (Auto) (0.0-10.0) % Eos % (Auto) (0.0-4.0) % Baso % (Auto) (0.0-2.0) % Neut # (1.8-7.0) K/uL Lymph # (1.0-4.3) K/uL [place] # (0.0-0.8) K/uL Eos # (0.0-0.7) K/uL Baso # (0.0-0.2) K/uL Neutrophils % (Manual) (50-75) % Band Neutrophils % (0-2) % Lymphocytes % (Manual) (20-40) % Monocytes % (Manual) (0-10) % Eosinophils % (Manual) (0-4) % Platelet Estimate (NORMAL) Large Platelets Hypochromasia (manual) Poikilocytosis (manual Anisocytosis (manual) Ovalocytes Sodium (132-148) mmol/L Potassium (3.6-5.2) mmol/L Chloride (98-107) mmol/L Carbon Dioxide (22-30) mmol/L Anion Gap (10-20) BUN (9-20) mg/dL Creatinine (0.8-1.5) MG/DL Est GFR ( Amer) Est GFR (Non-Af Amer) POC Glucose (mg/dL) 100 190 H 116 H (65-110) mg/dL Random Glucose (75-110) mg/dL Calcium (8.6-10.4) mg/dl Phosphorus (2.5-4.5) mg/dL Magnesium (1.6-2.3) mg/dL Total Bilirubin (0.2-1.3) mg/dL AST (17-59) U/L ALT (21-72) U/L Alkaline Phosphatase (38-126) U/L Total Protein (6.3-8.3) g/dL Albumin (3.5-5.0) g/dL Globulin (2.2-3.9) gm/dL Albumin/Globulin Ratio (1.0-2.1) Blood Type Antibody Screen 11/12/16 11/12/16 11/11/16 Range/Units 06:10 06:10 21:16 WBC 13.2 H (4.8-10.8) K/uL RBC 2.52 L (4.40-5.90) Mil/uL Hgb 8.3 L (12.0-18.0) g/dL Hct 24.4 L (35.0-51.0) % MCV 96.8 H D (80.0-94.0) fL MCH 32.9 H (27.0-31.0) pg MCHC 34.0 (33.0-37.0) g/dL RDW 16.1 H (11.5-14.5) % Plt Count 56 L (130-400) K/uL MPV 10.3 (7.2-11.7) fL Neut % (Auto) 80.9 H (50.0-75.0) % Lymph % (Auto) 7.5 L (20.0-40.0) % [place] % (Auto) 2.7 (0.0-10.0) % Eos % (Auto) 8.5 H (0.0-4.0) % Baso % (Auto) 0.4 (0.0-2.0) % Neut # 10.7 H (1.8-7.0) K/uL Lymph # 1.0 (1.0-4.3) K/uL [place] # 0.4 (0.0-0.8) K/uL Eos # 1.1 H (0.0-0.7) K/uL Baso # 0.1 (0.0-0.2) K/uL Neutrophils % (Manual) 81 H (50-75) % Band Neutrophils % 1 (0-2) % Lymphocytes % (Manual) 10 L (20-40) % Monocytes % (Manual) 2 (0-10) % Eosinophils % (Manual) 6 H (0-4) % Platelet Estimate Decreased L (NORMAL) Large Platelets Present Hypochromasia (manual) Slight Poikilocytosis (manual Slight Anisocytosis (manual) Slight Ovalocytes Slight Sodium 133 (132-148) mmol/L Potassium 3.5 L (3.6-5.2) mmol/L Chloride 97 L (98-107) mmol/L Carbon Dioxide 27 (22-30) mmol/L Anion Gap 13 (10-20) BUN 29 H (9-20) mg/dL Creatinine 2.0 H (0.8-1.5) MG/DL Est GFR ( Amer) 44 Est GFR (Non-Af Amer) 36 POC Glucose (mg/dL) 92 (65-110) mg/dL Random Glucose 86 (75-110) mg/dL Calcium 7.5 L (8.6-10.4) mg/dl Phosphorus 4.3 (2.5-4.5) mg/dL Magnesium 1.8 (1.6-2.3) mg/dL Total Bilirubin 2.1 H (0.2-1.3) mg/dL AST 49 (17-59) U/L ALT 50 (21-72) U/L Alkaline Phosphatase 137 H (38-126) U/L Total Protein 6.4 (6.3-8.3) g/dL Albumin 2.6 L (3.5-5.0) g/dL Globulin 3.7 (2.2-3.9) gm/dL Albumin/Globulin Ratio 0.7 L (1.0-2.1) Blood Type Antibody Screen 11/11/16 Range/Units 09:46 WBC (4.8-10.8) K/uL RBC (4.40-5.90) Mil/uL Hgb (12.0-18.0) g/dL Hct (35.0-51.0) % MCV (80.0-94.0) fL MCH (27.0-31.0) pg MCHC (33.0-37.0) g/dL RDW (11.5-14.5) % Plt Count (130-400) K/uL MPV (7.2-11.7) fL Neut % (Auto) (50.0-75.0) % Lymph % (Auto) (20.0-40.0) % [place] % (Auto) (0.0-10.0) % Eos % (Auto) (0.0-4.0) % Baso % (Auto) (0.0-2.0) % Neut # (1.8-7.0) K/uL Lymph # (1.0-4.3) K/uL [place] # (0.0-0.8) K/uL Eos # (0.0-0.7) K/uL Baso # (0.0-0.2) K/uL Neutrophils % (Manual) (50-75) % Band Neutrophils % (0-2) % Lymphocytes % (Manual) (20-40) % Monocytes % (Manual) (0-10) % Eosinophils % (Manual) (0-4) % Platelet Estimate (NORMAL) Large Platelets Hypochromasia (manual) Poikilocytosis (manual Anisocytosis (manual) Ovalocytes Sodium (132-148) mmol/L Potassium (3.6-5.2) mmol/L Chloride (98-107) mmol/L Carbon Dioxide (22-30) mmol/L Anion Gap (10-20) BUN (9-20) mg/dL Creatinine (0.8-1.5) MG/DL Est GFR ( Amer) Est GFR (Non-Af Amer) POC Glucose (mg/dL) (65-110) mg/dL Random Glucose (75-110) mg/dL Calcium (8.6-10.4) mg/dl Phosphorus (2.5-4.5) mg/dL Magnesium (1.6-2.3) mg/dL Total Bilirubin (0.2-1.3) mg/dL AST (17-59) U/L ALT (21-72) U/L Alkaline Phosphatase (38-126) U/L Total Protein (6.3-8.3) g/dL Albumin (3.5-5.0) g/dL Globulin (2.2-3.9) gm/dL Albumin/Globulin Ratio (1.0-2.1) Blood Type B POSITIVE Antibody Screen Negative Laboratory Results - last 24 hr 11/11/16 11/11/16 11/12/16 09:46 21:16 06:10 WBC 13.2 H RBC 2.52 L Hgb 8.3 L Hct 24.4 L MCV 96.8 H D MCH 32.9 H MCHC 34.0 RDW 16.1 H Plt Count 56 L MPV 10.3 Neut % (Auto) 80.9 H Lymph % (Auto) 7.5 L [place] % (Auto) 2.7 Eos % (Auto) 8.5 H Baso % (Auto) 0.4 Neut # 10.7 H Lymph # 1.0 [place] # 0.4 Eos # 1.1 H Baso # 0.1 Neutrophils % (Manual) 81 H Band Neutrophils % 1 Lymphocytes % (Manual) 10 L Monocytes % (Manual) 2 Eosinophils % (Manual) 6 H Platelet Estimate Decreased L Large Platelets Present Hypochromasia (manual) Slight Poikilocytosis (manual Slight Anisocytosis (manual) Slight Ovalocytes Slight Sodium Potassium Chloride Carbon Dioxide Anion Gap BUN Creatinine Est GFR ( Amer) Est GFR (Non-Af Amer) POC Glucose (mg/dL) 92 Random Glucose Calcium Phosphorus Magnesium Total Bilirubin AST ALT Alkaline Phosphatase Total Protein Albumin Globulin Albumin/Globulin Ratio Blood Type B POSITIVE Antibody Screen Negative 11/12/16 11/12/16 11/12/16 06:10 07:22 11:14 WBC RBC Hgb Hct MCV MCH MCHC RDW Plt Count MPV Neut % (Auto) Lymph % (Auto) [place] % (Auto) Eos % (Auto) Baso % (Auto) Neut # Lymph # [place] # Eos # Baso # Neutrophils % (Manual) Band Neutrophils % Lymphocytes % (Manual) Monocytes % (Manual) Eosinophils % (Manual) Platelet Estimate Large Platelets Hypochromasia (manual) Poikilocytosis (manual Anisocytosis (manual) Ovalocytes Sodium 133 Potassium 3.5 L Chloride 97 L Carbon Dioxide 27 Anion Gap 13 BUN 29 H Creatinine 2.0 H Est GFR ( Amer) 44 Est GFR (Non-Af Amer) 36 POC Glucose (mg/dL) 116 H 190 H Random Glucose 86 Calcium 7.5 L Phosphorus 4.3 Magnesium 1.8 Total Bilirubin 2.1 H AST 49 ALT 50 Alkaline Phosphatase 137 H Total Protein 6.4 Albumin 2.6 L Globulin 3.7 Albumin/Globulin Ratio 0.7 L Blood Type Antibody Screen 11/12/16 16:30 WBC RBC Hgb Hct MCV MCH MCHC RDW Plt Count MPV Neut % (Auto) Lymph % (Auto) [place] % (Auto) Eos % (Auto) Baso % (Auto) Neut # Lymph # [place] # Eos # Baso # Neutrophils % (Manual) Band Neutrophils % Lymphocytes % (Manual) Monocytes % (Manual) Eosinophils % (Manual) Platelet Estimate Large Platelets Hypochromasia (manual) Poikilocytosis (manual Anisocytosis (manual) Ovalocytes Sodium Potassium Chloride Carbon Dioxide Anion Gap BUN Creatinine Est GFR ( Amer) Est GFR (Non-Af Amer) POC Glucose (mg/dL) 100 Random Glucose Calcium Phosphorus Magnesium Total Bilirubin AST ALT Alkaline Phosphatase Total Protein Albumin Globulin Albumin/Globulin Ratio Blood Type Antibody Screen Fingerstick Blood Sugar Results: 100 Review of Systems - Review of Systems All systems: reviewed and no additional remarkable complaints except Critical Care Progress Note - Nutrition Nutrition: Nutrition Category Date Time Status Consistent Carbohydrate [DIET] Diets 11/10/16 Dinner Active Assessment/Plan (1) Pneumothorax Assessment and plan: 45yo M. Homeless with no know PMHx. Presented with strep bacteremia c/b acute renal failure requiring initiation of dialysis. Hospital course c/b ARDS with spontaneous pneumothorax now s/p pigtail catheter. Neuro: Alert and oriented 3 Pulm: Spontaneous pneumothorax secondary to recent episode of ARDS now resolved. Removing pigtail chest tube today, will monitor for possible re- expansion of pneumothorax. CV: Hemodynamically stable Hem: mildly fluctuating leukocytosis. Renal: Acute kidney injury now requiring dialysis (MWF). Endo: No acute issues GI: Carb consistent diet ID: Sepsis resolved, recent strep bacteremia, continue IV antibiotics for 4 weeks since negative blood culture. IV meropenem and micafungin, to stop November 23. DVT proph - heparin subcutaneous GI proph - Pepcid walters for strict I/O's during acute illness Code status - full code Permacath (10/30/16) PICC line () Patient clinically stable for downgrade to the floors. Will need social work to figure out homeless status and continual need for hemodialysis. Critical Care Time spent 35 minutes Multi-disciplinary rounds were performed with house staff, nursing, speech therapy, respiratory therapy, pharmacy and nutrition with integrated input from the primary team/attending and other consulting services. The documented time is cumulative and includes review of patient data/exams/labs/chart review and examination of the patient on rounds and throughout the day; time is exclusive of any procedures or teaching time. Current Visit: Yes Status: Acute
--- NOTE | 2016-11-12 18:45 | RAD ---
HISTORY: removal of chest tube/pigtail COMPARISON: Chest x-ray performed 11/12/16 TECHNIQUE: Chest, one view. FINDINGS: Examination limited by patient obliquity, habitus, and hypoinflation. Right-sided dialysis catheter extends the cavoatrial junction. Left-sided PICC extends to the SVC. LUNGS: Interstitial prominence may reflect infection or edema. Probable small left pleural effusion. Bibasilar atelectasis or infiltrates, increased at the left lung base. No definite pneumothorax. CARDIOVASCULAR: Heart size appears within normal limits. OSSEOUS STRUCTURES: Degenerative changes of the spine and shoulders. VISUALIZED UPPER ABDOMEN: Unremarkable. OTHER FINDINGS: None. IMPRESSION: Right-sided dialysis catheter. Left-sided PICC. Interstitial prominence may reflect infection or edema. Probable small left pleural effusion. Bibasilar atelectasis or infiltrates, increased at the left lung base.
[2016-11-13] MEDS: Albuterol-Ipratrop 3 mg / 0.5 (3 ml) UD INH SCH ×4 (01:16→19:56)
[2016-11-13 06:04] LABS: BASO # 0.1 K/uL (0.0-0.2); BASO % 0.6 % (0.0-2.0); EOS # 1.4 K/uL (0.0-0.7); EOS % 11.2 % (0.0-4.0); HEMATOCRIT 23.9 % (35.0-51.0); LYMPH # 1.1 K/uL (1.0-4.3); LYMPH % 8.9 % (20.0-40.0); MEAN CELL VOLUME 97.1 fL (80.0-94.0); MEAN CORPUSCULAR HEMOGLOBIN 32.3 pg (27.0-31.0); MEAN CORPUSCULAR HGB CONC 33.2 g/dL (33.0-37.0); MEAN PLATELET VOLUME 10.3 fL (7.2-11.7); MONO # 0.5 K/uL (0.0-0.8); MONO % 3.7 % (0.0-10.0); PLATELET COUNT 66 K/uL (130-400); RED CELL DISTRIBUTION WIDTH 15.6 % (11.5-14.5); WHITE BLOOD COUNT 12.5 K/uL (4.8-10.8)
[2016-11-13 06:11] LABS: POTASSIUM 3.3 mmol/L (3.6-5.2)
[2016-11-13 06:12] LABS: BILIRUBIN,TOTAL 1.4 mg/dL (0.2-1.3); CALCIUM 7.4 mg/dl (8.6-10.4); MAGNESIUM 1.8 mg/dL (1.6-2.3); PHOSPHOROUS 4.6 mg/dL (2.5-4.5); TOTAL PROTEIN 6.3 g/dL (6.3-8.3)
[2016-11-13 06:16] LABS: ALB/GLOB RATIO 0.8 (1.0-2.1)
[2016-11-13] MEDS: (Novolin R) Insulin Human Regular 100 units/ml vial SC SCH ×3 (07:30→16:30)
--- NOTE | 2016-11-13 07:59 | RAD ---
HISTORY: r/o pneumo s/p chest tube removal COMPARISON: Portable chest 11/12/2016. FINDINGS: LUNGS: Total right central venous dialysis catheter unchanged in position. Left PICC also unchanged. Resolution of right basilar linear atelectasis is apparent however mid to inferior left-sided infiltrate persists though mildly improved at the left base in particular. PLEURA: No right pleural effusion. Minimal left pleural effusion is not excluded. No pneumothorax apparent. CARDIOVASCULAR: Normal. OSSEOUS STRUCTURES: No significant abnormalities. VISUALIZED UPPER ABDOMEN: Normal. OTHER FINDINGS: Elevated right hemidiaphragm stable. . IMPRESSION: Mild bilateral improvement including infiltrate at the mid to inferior left lung zone atresia pleural effusion again questioned. Elevated right hemidiaphragm again noted. .
[2016-11-13 08:31] LABS: EOSINOPHIL 6 % (0-4); NEUTROPHIL 68 % (50-75); REACTIVE LYMPHOCYTES 1 % (0-0); TOTAL CELLS COUNTED 100
--- NOTE | 2016-11-13 09:08 | CP.PCM.PN ---
Subjective - Date & Time of Evaluation Date of Evaluation: 11/13/16 Time of Evaluation: 08:30 - Subjective Subjective: Hospitalist Progress Note (Patient was seen and examined at 8:30 AM 11/13/16) 45 year old male who presented to the ER here at [facility] [place] on 10/21/16 intoxicated with complaints of cough and abdominal pain. He was found to be hypotensive, hypoxic, with RUL/RML Pneumonia. He eventually required intubation and ventilator support. He was also found to be in Acute Renal Failure and started receiving HD through Right Femoral Access on Wednesday10/23/16, 10/26, and 10/27/16. He was for Right Perm Cath with Dr. De La Vega for 10/28/16 however as his platelets declined, this was put on hold and patient was transfused 2 bags of platelets as per ICU Team. He became hypotensive on and therefore was started on Norepinephrine Drip, Albumin, and Solumedrol. Chest X Ray on 10/29/16 showed Left Pneumothorax and Proof Reader has placed a left sided chest tube pigtail catheter and repeat Chest X Ray showed re -expansion of the Left Lung. He had Right Perm Cath and Left Arm PICC Line placed 10/30/16. He was eventually extubated on 11/04/16. His Chest Tube Pigtail Catheter was removed on 11/12/16. NO chest pain, NO palpitation, NO dyspnea/chest tightness, NO dysphagia/ odynophagia with eating/drinking, NO abdominal pain, NO n/v/d/c (his last bowel movement was this morning right before my exam and it was normal), NO burning/ pain with urination, NO lightheadedness/dizziness while in bed, NO headaches, NO new changes in vision/eye pain/loss of vision, NO new changes in hearing/ear pain/loss of hearing, NO paresthesias. GENERAL: Patient was asleep but easily arousable. Knows who he is, where he is, why he is hear, where he is, the month, the year. NO apparent distress at this time and speaking in full sentences with no signs of respiratory distress. HEENT: NCA, Pupils are round/reactive to light, Slight Scleral Icterus, NO lymphadenopathy, NO JVD, NO thyromegaly, Nasal turbinates are nonerythematous/ nonedematous/moist, Oral mucosa is dry. Cardio: NS1 and NS2, Systolic Ejection heard best along left sternal border Resp: There are NO longer any decreased breath sounds on the left and lung exam is CTA B/L, NO R/R/W GI: BSx4, Distention, Liver and Spleen could not be adequately palpated secondary to distention, Soft, NT, NO guarding/rebound tenderness Ext: Pulses are strong and equal, Capillary Refill is 2 seconds, NO cyanosis, NO edema, Patches of Psoriasis on the bilateral elbows/bilateral anterior lower legs Neuro: CN II through XII are grossly intact Skin: Bilateral Groin fungal rash has disappeared Assessment and Plan (1) Alcohol withdrawal Assessment & Plan: NO signs of DTs at the time of my exam Thiamine 100 mg IV 1x/day Folic Acid 1 mg IV 1x/day Status: Acute (2) Hypoxemia/Respiratory Distress Assessment & Plan: Patient was extubated on 11/04/16 Status: Acute (3). Left Pneumothorax/Left Loculated Effusion As per Chest X Ray 11/08/16: moderate loculated left sided pleuaral effusion, moderate to severe venous congestion with confluent consolidative changes at the left mid to lower lung zone, upper lobe granulomatous changes CT Chest 11/09/16 showed improvement in pulmonary edema, persistant Left Pleural Effusion but decreased in size, compressive atelectasis in left lower lobe Chest X Ray 11/10/16 show no change in left hemithorax appearance but decrease in right pleural effusion Chest X Ray 11/11/16 shows no change when compared to 11/10/16, however follow up official reading Chest X Ray 11/12/16 shows interstitial prominence which may reflect infection or edema, probable small pleural effusion, bibasilar atelectasis or infiltrates Chest Tube Pigtail Catheter was removed by ICU Team 11/12/16 Chest X Ray 11/13/16 showed mild bilateral improvement including infiltrate at the mid to inferior left lung zone, pleural effusion, elevated left hemidiaphragm (4)Sepsis Secondary to Pneumonia and Bacteremia Assessment & Plan: Patient received a total of 3 weeks of IV Antibiotics and ID Dr. Bowers has discontinued them Blood Culture 10/21/16 showed S. pneumoniae Blood Culture 10/26/16 showed Coag Neg Staph Repeat Blood Cultures on 10/28/16 and 11/01/16 were negative at 5 days Sputum Culture 11/01/16 was negative Status: Acute (5). Hypotension Episodes of Hypotension and therefore HD was held by Nephrology Dr. Merida on 01/19 (6) Seizure disorder Assessment & Plan: Secondary to alcohol withdrawal. NO recent seizure reported Neurology Dr. Pineda Status: Acute (7) Thrombocytopenia Assessment & Plan: Likely Secondary to alcohol abuse. Heparin Abs were also ordered on 10/30/16 and this is NEGATIVE Currently at 66 Status: Chronic (8) Psoriasis Status: Acute (9) Renal failure Assessment & Plan: Renal U/S 10/24/16 showed nonobstructing calculus upper/midpole Right Kidney and Abdominal Ascites Hepatitis Panel is negative Patient was receiving HD through Right Femoral Catheter and this was removed on 10/31/16 S/P Right Chest Perm Cath placement by Vascular Surgeon Dr. De La Vega . HD through Right Chest Perm Cath as per Nephrology Dr. Merida/Menard HD held today 11/12/16 secondary to episodes of Hypotension Sevelamer 800mg PO TID I will speak with Dr. Merida concerning the [facility] prospects for HD which seem likely considering when the HD was stopped earlier this weak, patient had acute episode of fluid build in lungs requiring BiPAP (please see earlier notes). If Dr. 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 De La Vega involved concerning AV Fistula Placement. Status: Acute (10). Anemia Likely Secondary to Chronic Alcohol Use and Renal Failure Stool Occult Blood 10/21/16 is negative Stool Occult Blood 11/11/16 was positive: monitor HgB/Hct and continues to drop then consider GI evaluation HgB/Hct are 8.3/24.4 after 1 unit PRBC after HD on 11/11/16. However this morning the HgB/Hct continue to decline at 7.9/23.9. Therefore I will get GI Dr. Cloud on board for recommendations concerning this issue. Procrit M-W-F 10,000 Units IV Ferrlecit 125 mg IV 1x/day Continue to monitor (11). Hypokalemia 3.3 today (12). Bilateral Groin Fungal Rash Resolved Nystatin Powder 2x/day for 2 weeks started on 10/26/16 and last dose on 11/09/16 (13). Elevated LFTs Likely secondary to history of Alcohol Abuse Monitor (14). Tremor It was noted today that while patient was trying to eat his breakfast that both the right/left hands/arms were shaking Basal Ganglia dysfunction secondary to long history of Alcohol Abuse? Patient stated that he did not have these tremors before he came to the hospital He is not on any medications currently that will cause the tremor. I will reach out to Neurology Dr. Pineda concerning this issue. (15). Prophylactic Measures Bilateral SCDs Protonix 40 mg IV 1x/day Acetaminophen 650 mg PO Q6H PRN Temp/Fever Florastor 250 mg PO 2x/day Albuterol 2.5 mg INH Q6H Novolin Regular ISS with Accuchecks NO ANTICOAGULATION CONSIDERING THE ANEMIA AND THE THROMBOCYTOPENIA. Objective - Vital Signs/Intake and Output Vital Signs (last 24 hours): Temp Pulse Resp BP Pulse Ox 98.7 F 100 H 18 110/71 97 11/13/16 04:00 11/13/16 07:30 11/13/16 07:25 11/13/16 07:25 11/13/16 07:25 Intake and Output: 11/13/16 11/13/16 06:59 18:59 Intake Total 0 Balance 0 - Medications Medications: Current Medications Acetaminophen (Tylenol 650mg/20.3ml Solution Ud) 650 mg PO Q6 PRN PRN Reason: Temperature Last Admin: 11/02/16 23:46 Dose: 650 mg Albumin Human (Albumin Human 25% (12.5 Gm/50 Ml)) 12.5 gm IV Q8H MIRA Last Admin: 10/27/16 12:01 Dose: Not Given Albuterol/Ipratropium (Duoneb 3 Mg/0.5 Mg (3 Ml) Ud) 3 ml INH RQ6 MIRA Last Admin: 11/13/16 07:30 Dose: 3 ml Epoetin Humphrey (Procrit) 10,000 unit IV MWF [facility] Last Admin: 11/11/16 18:59 Dose: Not Given Insulin Human Regular (Novolin R) 0 unit SC ACHS MIRA PRN Reason: Protocol Last Admin: 11/12/16 21:45 Dose: Not Given Lactic Acid (Lac-Hydrin 12% Lotion (225 G)) 0 gm EXT BID MIRA Last Admin: 11/12/16 17:28 Dose: 1 applic Multivitamins (Hexavitamin) 1 tab PO DAILY [facility] Last Admin: 11/12/16 10:13 Dose: 1 tab Pantoprazole Sodium (Protonix Ec Tab) 40 mg PO DAILY [facility] Last Admin: 11/12/16 10:13 Dose: 40 mg Saccharomyces Boulardii (Florastor) 250 mg PO BID [facility] Last Admin: 11/12/16 17:27 Dose: 250 mg Sevelamer Carbonate (Renvela) 800 mg PO TIDCC [facility] Last Admin: 11/13/16 08:27 Dose: 800 mg - Labs Labs: 11/13/16 05:55 11/13/16 05:55 PT 17.7 SECONDS (9.7-12.2) H 10/29/16 06:22 INR 1.6 10/29/16 06:22 APTT 30 SECONDS (21-34) 10/29/16 06:22
[2016-11-13] MEDS: Pantoprazole 40 mg EC Tab PO SCH (09:42)
[2016-11-13] MEDS: Multiple Vitamins Tab PO SCH (09:42)
[2016-11-13] MEDS: Ammonium Lactate 12% Lotion (225 g) EXT SCH ×2 (09:42→19:41)
[2016-11-13] MEDS: Saccharomyces Boulardi 250 mg Cap PO SCH ×2 (09:42→19:41)
[2016-11-13 10:49] LABS: BASO % 0.3 % (0.0-2.0); EOS # 1.3 K/uL (0.0-0.7); EOS % 9.5 % (0.0-4.0); HEMATOCRIT 27.3 % (35.0-51.0); LYMPH # 0.8 K/uL (1.0-4.3); LYMPH % 6.4 % (20.0-40.0); MEAN CELL VOLUME 97.5 fL (80.0-94.0); MEAN CORPUSCULAR HEMOGLOBIN 31.7 pg (27.0-31.0); MEAN CORPUSCULAR HGB CONC 32.5 g/dL (33.0-37.0); MEAN PLATELET VOLUME 10.4 fL (7.2-11.7); MONO # 0.5 K/uL (0.0-0.8); MONO % 4.1 % (0.0-10.0); PLATELET COUNT 73 K/uL (130-400); RED CELL DISTRIBUTION WIDTH 15.4 % (11.5-14.5); WHITE BLOOD COUNT 13.3 K/uL (4.8-10.8)
[2016-11-13 11:25] LABS: TOTAL CELLS COUNTED 100
[2016-11-13 11:27] LABS: BASOPHIL 1 % (0-2); EOSINOPHIL 6 % (0-4); NEUTROPHIL 76 % (50-75)
--- NOTE | 2016-11-13 11:31 | CP.PCM.PN ---
Subjective - Date & Time of Evaluation Date of Evaluation: 11/13/16 Time of Evaluation: 11:00 - Subjective Subjective: Appears comfortable supine Objective - Vital Signs/Intake and Output Vital Signs (last 24 hours): Temp Pulse Resp BP Pulse Ox 98.7 F 100 H 18 110/71 97 11/13/16 04:00 11/13/16 07:30 11/13/16 07:25 11/13/16 07:25 11/13/16 07:25 Intake and Output: 11/13/16 11/13/16 06:59 18:59 Intake Total 0 Output Total 420 Balance 0 -420 - Medications Medications: Current Medications Acetaminophen (Tylenol 650mg/20.3ml Solution Ud) 650 mg PO Q6 PRN PRN Reason: Temperature Last Admin: 11/02/16 23:46 Dose: 650 mg Albumin Human (Albumin Human 25% (12.5 Gm/50 Ml)) 12.5 gm IV Q8H [facility] Last Admin: 10/27/16 12:01 Dose: Not Given Albuterol/Ipratropium (Duoneb 3 Mg/0.5 Mg (3 Ml) Ud) 3 ml INH RQ6 [facility] Last Admin: 11/13/16 07:30 Dose: 3 ml Epoetin Humphrey (Procrit) 10,000 unit IV MWF [facility] Last Admin: 11/11/16 18:59 Dose: Not Given Insulin Human Regular (Novolin R) 0 unit SC ACHS [facility] PRN Reason: Protocol Last Admin: 11/13/16 07:30 Dose: Not Given Lactic Acid (Lac-Hydrin 12% Lotion (225 G)) 0 gm EXT BID [facility] Last Admin: 11/13/16 09:42 Dose: 1 applic Multivitamins (Hexavitamin) 1 tab PO DAILY [facility] Last Admin: 11/13/16 09:42 Dose: 1 tab Pantoprazole Sodium (Protonix Ec Tab) 40 mg PO DAILY [facility] Last Admin: 11/13/16 09:42 Dose: 40 mg Saccharomyces Boulardii (Florastor) 250 mg PO BID [facility] Last Admin: 11/13/16 09:42 Dose: 250 mg Sevelamer Carbonate (Renvela) 800 mg PO TIDCC [facility] Last Admin: 11/13/16 08:27 Dose: 800 mg - Labs Labs: 11/13/16 10:46 11/13/16 05:55 PT 17.7 SECONDS (9.7-12.2) H 10/29/16 06:22 INR 1.6 10/29/16 06:22 APTT 30 SECONDS (21-34) 10/29/16 06:22 - Respiratory Exam Respiratory Exam: NORMAL BREATHING PATTERN Additional comments: lungs clear - Cardiovascular Exam Additional comments: Sinus ryth 95/min - GI/Abdominal Exam GI & Abdominal Exam: Soft - Extremities Exam Additional comments: No edema or cyanosis Assessment and Plan - Assessment and Plan (Free Text) Assessment: RUPALI on HD support Pneumonia/loculated pleural effusion Anemia Thrombocytopenia Alcohol withdrawal, liver cirrhosis Plan: Pt is for dialysis today overnight UO was 420 cc Epogen with dialysis
--- NOTE | 2016-11-13 12:32 | CP.PCM.CON ---
<Daljit Burkett - Last Filed: 11/13/16 12:34> History of Present Illness - History of Present Illness History of Present Illness: PGY 4 Initial GI Consult Keith Phillips is a 45M w/ hx of Etoh Abuse whose had a complicated presentation and hospital course after being found unconscious and in repertory distress. GI Has been consulted for worsening anemia throughout the hospital course and 1 out of 3 FOBT +. In short, pt was found unconcious supposedly after drinking a sig amount of Etoh. He arrived inthe ED with respia arrest s/p intubation. He was found to have PNA likely aspiration vs community. He was also subsequently found to be in acute renal failure and is currently on HD. Pt may have also initially had concurrent alcoholic hepatitis. He currently denies any acute GI bleed including hematemesis, melena, or BRBPR. Nursing staff also do not report any acute GI bleed. Pt Hgb dropped to 7.6 and was given 1 unit of PRBC, his hgb evans ~8.3 then apparently dropped to 7.9. The 7.9 value have have been dilution since it was drawn from the PICC line. Repeat hgb from arm and not PICC was 8.9. PMHx: Etoh abuse PSHx: Denies Social hx, 10 16oz beers daily, 1/2 pack cig weekly, denies any other rec drugs Family hx: Denies any sig hx Endo hx: none Past Patient History - Infectious Disease Hx of Infectious Diseases: None - Past Social History Smoking Status: Former Smoker - CARDIAC Hx Hypertension: Yes - INTEGUMENTARY Hx Psoriasis: Yes - MUSCULOSKELETAL/RHEUMATOLOGICAL Hx Falls: No - PSYCHIATRIC Hx Substance Use: No - SURGICAL HISTORY Hx Surgeries: No - ANESTHESIA Hx Anesthesia: No Meds Allergies/Adverse Reactions: Allergies Allergy/AdvReac Type Severity Reaction Status Date / Time No Known Allergies Allergy Verified 10/21/16 10:28 - Medications Medications: Current Medications Acetaminophen (Tylenol 650mg/20.3ml Solution Ud) 650 mg PO Q6 PRN PRN Reason: Temperature Last Admin: 11/02/16 23:46 Dose: 650 mg Albumin Human (Albumin Human 25% (12.5 Gm/50 Ml)) 12.5 gm IV Q8H [facility] Last Admin: 10/27/16 12:01 Dose: Not Given Albuterol/Ipratropium (Duoneb 3 Mg/0.5 Mg (3 Ml) Ud) 3 ml INH RQ6 [facility] Last Admin: 11/13/16 07:30 Dose: 3 ml Epoetin Humphrey (Procrit) 10,000 unit IV MWF [facility] Last Admin: 11/11/16 18:59 Dose: Not Given Insulin Human Regular (Novolin R) 0 unit SC ACHS [facility] PRN Reason: Protocol Last Admin: 11/13/16 07:30 Dose: Not Given Lactic Acid (Lac-Hydrin 12% Lotion (225 G)) 0 gm EXT BID [facility] Last Admin: 11/13/16 09:42 Dose: 1 applic Multivitamins (Hexavitamin) 1 tab PO DAILY [facility] Last Admin: 11/13/16 09:42 Dose: 1 tab Pantoprazole Sodium (Protonix Ec Tab) 40 mg PO DAILY [facility] Last Admin: 11/13/16 09:42 Dose: 40 mg Saccharomyces Boulardii (Florastor) 250 mg PO BID [facility] Last Admin: 11/13/16 09:42 Dose: 250 mg Sevelamer Carbonate (Renvela) 800 mg PO TIDCC [facility] Last Admin: 11/13/16 08:27 Dose: 800 mg Physical Exam - Head Exam Head Exam: ATRAUMATIC, NORMOCEPHALIC - Eye Exam Eye Exam: Normal appearance - ENT Exam ENT Exam: Mucous Membranes Moist, Normal Exam - Neck Exam Neck exam: Positive for: Normal Inspection - Respiratory Exam Respiratory Exam: Clear to Auscultation Bilateral, NORMAL BREATHING PATTERN. absent: Rales, Rhonchi, Wheezes, Respiratory Distress - Cardiovascular Exam Cardiovascular Exam: REGULAR RHYTHM, +S1, +S2 - GI/Abdominal Exam GI & Abdominal Exam: Normal Bowel Sounds, Soft. absent: Distended, Guarding, Organomegaly, Rebound, Rigid, Tenderness - Extremities Exam Extremities exam: Positive for: normal inspection - Neurological Exam Neurological exam: Alert, Normal Gait, Oriented x3 - Psychiatric Exam Psychiatric exam: Normal Affect, Normal Mood - Skin Skin Exam: Dry, Intact, Normal Color, Warm Results - Vital Signs Recent Vital Signs: Last Vital Signs Temp 98.7 F 11/13/16 04:00 Pulse 100 H 11/13/16 07:30 Resp 18 11/13/16 07:25 BP 110/71 11/13/16 07:25 Pulse Ox 97 11/13/16 07:25 - Labs Result Diagrams: 11/13/16 10:46 11/13/16 05:55 Labs: Laboratory Results - last 24 hr 11/12/16 11/12/16 11/13/16 16:30 21:12 05:55 WBC 12.5 H RBC 2.46 L Hgb 7.9 L Hct 23.9 L MCV 97.1 H MCH 32.3 H MCHC 33.2 RDW 15.6 H Plt Count 66 L MPV 10.3 Neut % (Auto) 75.6 H Lymph % (Auto) 8.9 L Dundy % (Auto) 3.7 Eos % (Auto) 11.2 H Baso % (Auto) 0.6 Neut # 9.5 H Lymph # 1.1 Dundy # 0.5 Eos # 1.4 H Baso # 0.1 Neutrophils % (Manual) 68 Band Neutrophils % 8 H Lymphocytes % (Manual) 12 L Reactive Lymphs % 1 H Monocytes % (Manual) 5 Eosinophils % (Manual) 6 H Basophils % (Manual) Platelet Estimate Decreased L Hypochromasia (manual) Slight Anisocytosis (manual) Slight Sodium Potassium Chloride Carbon Dioxide Anion Gap BUN Creatinine Est GFR ( Amer) Est GFR (Non-Af Amer) POC Glucose (mg/dL) 100 116 H Random Glucose Calcium Phosphorus Magnesium Total Bilirubin AST ALT Alkaline Phosphatase Total Protein Albumin Globulin Albumin/Globulin Ratio 11/13/16 11/13/16 11/13/16 05:55 07:16 10:46 WBC 13.3 H RBC 2.80 L Hgb 8.9 L Hct 27.3 L MCV 97.5 H MCH 31.7 H MCHC 32.5 L RDW 15.4 H Plt Count 73 L MPV 10.4 Neut % (Auto) 79.7 H Lymph % (Auto) 6.4 L Dundy % (Auto) 4.1 Eos % (Auto) 9.5 H Baso % (Auto) 0.3 Neut # 10.6 H Lymph # 0.8 L Dundy # 0.5 Eos # 1.3 H Baso # 0.0 Neutrophils % (Manual) 76 H Band Neutrophils % 7 H Lymphocytes % (Manual) 6 L Reactive Lymphs % Monocytes % (Manual) 4 Eosinophils % (Manual) 6 H Basophils % (Manual) 1 Platelet Estimate Decreased L Hypochromasia (manual) Anisocytosis (manual) Slight Sodium 132 Potassium 3.3 L Chloride 95 L Carbon Dioxide 26 Anion Gap 14 BUN 44 H Creatinine 2.5 H Est GFR ( Amer) 34 Est GFR (Non-Af Amer) 28 POC Glucose (mg/dL) 114 H Random Glucose 85 Calcium 7.4 L Phosphorus 4.6 H Magnesium 1.8 Total Bilirubin 1.4 H AST 42 ALT 51 Alkaline Phosphatase 133 H Total Protein 6.3 Albumin 2.7 L Globulin 3.6 Albumin/Globulin Ratio 0.8 L 11/13/16 11:35 WBC RBC Hgb Hct MCV MCH MCHC RDW Plt Count MPV Neut % (Auto) Lymph % (Auto) Dundy % (Auto) Eos % (Auto) Baso % (Auto) Neut # Lymph # Dundy # Eos # Baso # Neutrophils % (Manual) Band Neutrophils % Lymphocytes % (Manual) Reactive Lymphs % Monocytes % (Manual) Eosinophils % (Manual) Basophils % (Manual) Platelet Estimate Hypochromasia (manual) Anisocytosis (manual) Sodium Potassium Chloride Carbon Dioxide Anion Gap BUN Creatinine Est GFR ( Amer) Est GFR (Non-Af Amer) POC Glucose (mg/dL) 99 Random Glucose Calcium Phosphorus Magnesium Total Bilirubin AST ALT Alkaline Phosphatase Total Protein Albumin Globulin Albumin/Globulin Ratio Assessment & Plan - Assessment and Plan (Free Text) Assessment: Keith Phillips is a 45M w/ complicated hospital course who initially presented after being found unconcious and in repir distress, His anemia is likley multifactorial including kidney failure, r/o iron and nutritional def. Anemia likely 2/2 renal failure, r/o iron and b12/folate def Recent alcohol hepatitis RF hx of etoh abuse Plan: -Asked to repeat hgb from arm rather than PICC, it showed appropriate rise in the Hgb after 1 unit PRBC. 7.6 value is likely dilution -Will eventually need colonoscopy and egd if pt is not responsive to procrit -No need for additional FOBT -No signs of gross GI bleed -Can follow-up as outpt -recommend iron studies with ferritin, b12, mma, and folate levels -recommend liver u/s w/ doppler to eval for cirrhosis and portal vein -acute viral hep serologies neg will d/w Dr. Cee <Karlo Cee - Last Filed: 11/13/16 14:58> Meds - Medications Medications: Current Medications Acetaminophen (Tylenol 650mg/20.3ml Solution Ud) 650 mg PO Q6 PRN PRN Reason: Temperature Last Admin: 11/02/16 23:46 Dose: 650 mg Albumin Human (Albumin Human 25% (12.5 Gm/50 Ml)) 12.5 gm IV Q8H [facility] Last Admin: 10/27/16 12:01 Dose: Not Given Albuterol/Ipratropium (Duoneb 3 Mg/0.5 Mg (3 Ml) Ud) 3 ml INH RQ6 [facility] Last Admin: 11/13/16 13:32 Dose: 3 ml Epoetin Humphrey (Procrit) 10,000 unit IV MWF [facility] Last Admin: 11/11/16 18:59 Dose: Not Given Insulin Human Regular (Novolin R) 0 unit SC ACHS [facility] PRN Reason: Protocol Last Admin: 11/13/16 11:30 Dose: Not Given Lactic Acid (Lac-Hydrin 12% Lotion (225 G)) 0 gm EXT BID [facility] Last Admin: 11/13/16 09:42 Dose: 1 applic Multivitamins (Hexavitamin) 1 tab PO DAILY [facility] Last Admin: 11/13/16 09:42 Dose: 1 tab Pantoprazole Sodium (Protonix Ec Tab) 40 mg PO DAILY [facility] Last Admin: 11/13/16 09:42 Dose: 40 mg Saccharomyces Boulardii (Florastor) 250 mg PO BID [facility] Last Admin: 11/13/16 09:42 Dose: 250 mg Sevelamer Carbonate (Renvela) 800 mg PO TIDCC [facility] Last Admin: 11/13/16 12:44 Dose: 800 mg Results - Vital Signs Recent Vital Signs: Last Vital Signs Temp 97.7 F 11/13/16 12:00 Pulse 92 H 11/13/16 14:25 Resp 16 11/13/16 14:25 BP 114/68 11/13/16 14:25 Pulse Ox 99 11/13/16 14:25 - Labs Result Diagrams: 11/13/16 10:46 11/13/16 05:55 Labs: Laboratory Results - last 24 hr 11/12/16 11/12/16 11/13/16 16:30 21:12 05:55 WBC 12.5 H RBC 2.46 L Hgb 7.9 L Hct 23.9 L MCV 97.1 H MCH 32.3 H MCHC 33.2 RDW 15.6 H Plt Count 66 L MPV 10.3 Neut % (Auto) 75.6 H Lymph % (Auto) 8.9 L Dundy % (Auto) 3.7 Eos % (Auto) 11.2 H Baso % (Auto) 0.6 Neut # 9.5 H Lymph # 1.1 Dundy # 0.5 Eos # 1.4 H Baso # 0.1 Neutrophils % (Manual) 68 Band Neutrophils % 8 H Lymphocytes % (Manual) 12 L Reactive Lymphs % 1 H Monocytes % (Manual) 5 Eosinophils % (Manual) 6 H Basophils % (Manual) Platelet Estimate Decreased L Hypochromasia (manual) Slight Anisocytosis (manual) Slight Sodium Potassium Chloride Carbon Dioxide Anion Gap BUN Creatinine Est GFR ( Amer) Est GFR (Non-Af Amer) POC Glucose (mg/dL) 100 116 H Random Glucose Calcium Phosphorus Magnesium Total Bilirubin AST ALT Alkaline Phosphatase Total Protein Albumin Globulin Albumin/Globulin Ratio 11/13/16 11/13/16 11/13/16 05:55 07:16 10:46 WBC 13.3 H RBC 2.80 L Hgb 8.9 L Hct 27.3 L MCV 97.5 H MCH 31.7 H MCHC 32.5 L RDW 15.4 H Plt Count 73 L MPV 10.4 Neut % (Auto) 79.7 H Lymph % (Auto) 6.4 L Dundy % (Auto) 4.1 Eos % (Auto) 9.5 H Baso % (Auto) 0.3 Neut # 10.6 H Lymph # 0.8 L Dundy # 0.5 Eos # 1.3 H Baso # 0.0 Neutrophils % (Manual) 76 H Band Neutrophils % 7 H Lymphocytes % (Manual) 6 L Reactive Lymphs % Monocytes % (Manual) 4 Eosinophils % (Manual) 6 H Basophils % (Manual) 1 Platelet Estimate Decreased L Hypochromasia (manual) Anisocytosis (manual) Slight Sodium 132 Potassium 3.3 L Chloride 95 L Carbon Dioxide 26 Anion Gap 14 BUN 44 H Creatinine 2.5 H Est GFR ( Amer) 34 Est GFR (Non-Af Amer) 28 POC Glucose (mg/dL) 114 H Random Glucose 85 Calcium 7.4 L Phosphorus 4.6 H Magnesium 1.8 Total Bilirubin 1.4 H AST 42 ALT 51 Alkaline Phosphatase 133 H Total Protein 6.3 Albumin 2.7 L Globulin 3.6 Albumin/Globulin Ratio 0.8 L 11/13/16 11:35 WBC RBC Hgb Hct MCV MCH MCHC RDW Plt Count MPV Neut % (Auto) Lymph % (Auto) Dundy % (Auto) Eos % (Auto) Baso % (Auto) Neut # Lymph # Dundy # Eos # Baso # Neutrophils % (Manual) Band Neutrophils % Lymphocytes % (Manual) Reactive Lymphs % Monocytes % (Manual) Eosinophils % (Manual) Basophils % (Manual) Platelet Estimate Hypochromasia (manual) Anisocytosis (manual) Sodium Potassium Chloride Carbon Dioxide Anion Gap BUN Creatinine Est GFR ( Amer) Est GFR (Non-Af Amer) POC Glucose (mg/dL) 99 Random Glucose Calcium Phosphorus Magnesium Total Bilirubin AST ALT Alkaline Phosphatase Total Protein Albumin Globulin Albumin/Globulin Ratio Attending/Attestation - Attestation I have personally seen and examined this patient.: Yes I have fully participated in the care of the patient.: Yes I have reviewed all pertinent clinical information: Yes Notes (Text): 11/13/16 14:56 45 year old male with h/o chronic renal failure, pneumonia, h/o etoh abuse, we are consulted for chronic anemia and elevated lfts. Questionable Hematemesis, but upon questioning patient clearly states he coughed blood up. 1. Anemia 2. Elevated LFTs Plan: -no overt signs of GI blood loss -hgb stable -hemodynamically stable -patient coughed blood, not vomited -monitor -transfuse as necessary -stress ulcer prophylaxis -monitor lfts -elevated lfts likely related to etoh use -etoh cessation advised
--- NOTE | 2016-11-13 15:10 | US ---
Duplex abdominal ultrasound Indication: eval liver, r/o portal and splenic vein thrombosis Comparison: None available Findings: The liver measures approximately 18.8 cm in sagittal dimension. 6.9 x 6.4 x 6.7 cm anechoic lesion without evidence of vascularity identified within the left hepatic lobe compatible with a cyst. The portal vein appears patent and demonstrates hepatopetal flow. Hepatic veins appear patent with unremarkable hepatic venous waveforms. The splenic vein appears patent. Impression: Patent hepatic vasculature demonstrated with appropriate directional flow. 6.9 cm left hepatic lobe cyst.
[2016-11-13] MEDS: EPOETIN ALFA 10,000 UNIT/ML ML IV SCH (18:10)
[2016-11-14] MEDS: Albuterol-Ipratrop 3 mg / 0.5 (3 ml) UD INH SCH ×4 (01:07→19:35)
[2016-11-14 07:05] LABS: BASO # 0.1 K/uL (0.0-0.2); BASO % 0.9 % (0.0-2.0); EOS # 1.1 K/uL (0.0-0.7); EOS % 10.2 % (0.0-4.0); HEMATOCRIT 24.7 % (35.0-51.0); LYMPH # 1.1 K/uL (1.0-4.3); LYMPH % 9.9 % (20.0-40.0); MEAN CELL VOLUME 96.8 fL (80.0-94.0); MEAN CORPUSCULAR HEMOGLOBIN 32.4 pg (27.0-31.0); MEAN CORPUSCULAR HGB CONC 33.5 g/dL (33.0-37.0); MEAN PLATELET VOLUME 10.2 fL (7.2-11.7); MONO # 0.5 K/uL (0.0-0.8); MONO % 4.9 % (0.0-10.0); PLATELET COUNT 64 K/uL (130-400); RED CELL DISTRIBUTION WIDTH 15.7 % (11.5-14.5); WHITE BLOOD COUNT 10.9 K/uL (4.8-10.8)
[2016-11-14 07:17] LABS: POTASSIUM 3.4 mmol/L (3.6-5.2)
[2016-11-14 07:19] LABS: ALB/GLOB RATIO 0.7 (1.0-2.1); BILIRUBIN,TOTAL 1.5 mg/dL (0.2-1.3); TOTAL PROTEIN 6.6 g/dL (6.3-8.3)
[2016-11-14 07:20] LABS: CALCIUM 7.9 mg/dl (8.6-10.4)
--- NOTE | 2016-11-14 08:03 | CP.PCM.PN ---
Subjective - Date & Time of Evaluation Date of Evaluation: 11/14/16 Time of Evaluation: 07:45 - Subjective Subjective: Hospitalist Progress Note (Patient was seen and examined at 7:45 AM 11/14/16) 45 year old male who presented to the ER here at [facility] on 10/21/16 intoxicated with complaints of cough and abdominal pain. He was found to be hypotensive, hypoxic, with RUL/RML Pneumonia. He eventually required intubation and ventilator support. He was also found to be in Acute Renal Failure and started receiving HD through Right Femoral Access on Wednesday10/23/16, 10/26, and 10/27/16. He was for Right Perm Cath with Dr. De La Vega for 10/28/16 however as his platelets declined, this was put on hold and patient was transfused 2 bags of platelets as per ICU Team. He became hypotensive on and therefore was started on Norepinephrine Drip, Albumin, and Solumedrol. Chest X Ray on 10/29/16 showed Left Pneumothorax and Lead Trainer has placed a left sided chest tube pigtail catheter and repeat Chest X Ray showed re -expansion of the Left Lung. He had Right Perm Cath and Left Arm PICC Line placed 10/30/16. He was eventually extubated on 11/04/16. His Chest Tube Pigtail Catheter was removed on 11/12/16. NO chest pain, NO palpitation, NO dyspnea/chest tightness, (+) Cough that is usually present early in the morning but no coughing up of blood reported to me by patient, NO dysphagia/odynophagia with eating/drinking, NO abdominal pain, NO n/v/d/c (his last bowel movement was yesterday morning right before my exam and it was normal), NO burning/pain with urination, NO lightheadedness/ dizziness while in bed, NO headaches, NO new changes in vision/eye pain/loss of vision, NO new changes in hearing/ear pain/loss of hearing, NO paresthesias. GENERAL: Patient was asleep but easily arousable. Knows who he is, where he is, why he is hear, where he is, the month, the year, and believes it is November 12 ( he was told today's date 11/14/16). NO apparent distress at this time and speaking in full sentences with no signs of respiratory distress. Tremulous when he tries to move all 4 of his extremities HEENT: NCA, Pupils are round/reactive to light, Slight Scleral Icterus, NO lymphadenopathy, NO JVD, NO thyromegaly, Nasal turbinates are nonerythematous/ nonedematous/moist, Oral mucosa is dry. Cardio: NS1 and NS2, Systolic Ejection heard best along left sternal border Resp: There are NO longer any decreased breath sounds on the left and lung exam is CTA B/L, NO R/R/W GI: BSx4, Distention, Liver and Spleen could not be adequately palpated secondary to distention, Soft, NT, NO guarding/rebound tenderness Ext: Pulses are strong and equal, Capillary Refill is 2 seconds, NO cyanosis, NO edema, Patches of Psoriasis on the bilateral elbows/bilateral anterior lower legs Neuro: CN II through XII are grossly intact Skin: Bilateral Groin fungal rash has disappeared Assessment and Plan (1) Alcohol withdrawal Assessment & Plan: NO signs of DTs at the time of my exam Thiamine 100 mg IV 1x/day Folic Acid 1 mg IV 1x/day Stringed Instrument Assembler consult to help patient with outpatient AA Status: Acute (2) Hypoxemia/Respiratory Distress Assessment & Plan: Patient was extubated on 11/04/16 Status: Acute (3). Left Pneumothorax/Left Loculated Effusion As per Chest X Ray 11/08/16: moderate loculated left sided pleuaral effusion, moderate to severe venous congestion with confluent consolidative changes at the left mid to lower lung zone, upper lobe granulomatous changes CT Chest 11/09/16 showed improvement in pulmonary edema, persistant Left Pleural Effusion but decreased in size, compressive atelectasis in left lower lobe Chest X Ray 11/10/16 show no change in left hemithorax appearance but decrease in right pleural effusion Chest X Ray 11/11/16 shows no change when compared to 11/10/16, however follow up official reading Chest X Ray 11/12/16 shows interstitial prominence which may reflect infection or edema, probable small pleural effusion, bibasilar atelectasis or infiltrates Chest Tube Pigtail Catheter was removed by ICU Team 11/12/16 Chest X Ray 11/13/16 showed mild bilateral improvement including infiltrate at the mid to inferior left lung zone, pleural effusion, elevated left hemidiaphragm (4)Sepsis Secondary to Pneumonia and Bacteremia Assessment & Plan: Patient received a total of 3 weeks of IV Antibiotics and ID Dr. Bowers has discontinued them Blood Culture 10/21/16 showed S. pneumoniae Blood Culture 10/26/16 showed Coag Neg Staph Repeat Blood Cultures on 10/28/16 and 11/01/16 were negative at 5 days Sputum Culture 11/01/16 was negative NO recent fevers Status: Acute (5). Hypotension Episodes of Hypotension and patient is asymptomatic (6) Seizure disorder Assessment & Plan: Secondary to alcohol withdrawal. NO recent seizure reported Neurology Dr. Pineda Status: Acute (7) Thrombocytopenia Assessment & Plan: Likely Secondary to alcohol abuse. Heparin Abs were also ordered on 10/30/16 and this is NEGATIVE Currently at 63 and this has been relatively stable Status: Chronic (8) Psoriasis Status: Acute (9) Renal failure Assessment & Plan: Renal U/S 10/24/16 showed nonobstructing calculus upper/midpole Right Kidney and Abdominal Ascites Hepatitis Panel is negative Patient was receiving HD through Right Femoral Catheter and this was removed on 10/31/16 S/P Right Chest Perm Cath placement by Vascular Surgeon Dr. De La Vega . HD through Right Chest Perm Cath as per Nephrology Dr. Merida/Derian HD held today 11/12/16 secondary to episodes of Hypotension Sevelamer 800mg PO TID I spoke with Fish Bin Tender Dr. Merida this morning 11/14/16 and as BUN/Cr is slowly improving, will hold off on Vascular Consult for now for evaluation of AV Fistula placement as patient may not need alf dialysis. Dr. Merida's help is greatly appreciated. Status: Acute (10). Anemia Likely Secondary to Chronic Alcohol Use and Renal Failure Stool Occult Blood 10/21/16 is negative Stool Occult Blood 11/11/16 was positive: GI Dr. Cee revaluated patient on and recommended monitoring of the HgB/Hct for now and transfuse if necessary. Dr. Cee's help is greatly appreciated HgB/Hct are currently 8.3/24.7 on 11/14/16 Procrit M-W-F 10,000 Units IV Ferrlecit 125 mg IV 1x/day Continue to monitor (11). Hypokalemia 3.4 today (12). Bilateral Groin Fungal Rash Resolved Nystatin Powder 2x/day for 2 weeks started on 10/26/16 and last dose was on (13). Elevated LFTs Likely secondary to history of Alcohol Abuse Monitor (14). 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 Patient stated that he did not have these tremors before he came to the hospital He is not on any medications currently that will cause the tremor. I reached out to Neurology Dr. Pineda on 11/13/16 and he will evaluate patient on 11/14/16. His help is greatly appreciated (15). Prophylactic Measures Bilateral SCDs Protonix 40 mg IV 1x/day Acetaminophen 650 mg PO Q6H PRN Temp/Fever Florastor 250 mg PO 2x/day Albuterol 2.5 mg INH Q6H Novolin Regular ISS with Accuchecks PT/OT NO ANTICOAGULATION CONSIDERING THE ANEMIA AND THE THROMBOCYTOPENIA. Objective - Vital Signs/Intake and Output Vital Signs (last 24 hours): Temp Pulse Resp BP Pulse Ox 98 F 80 12 104/63 98 11/14/16 04:00 11/14/16 04:00 11/14/16 04:00 11/14/16 03:25 11/14/16 04:00 Intake and Output: 11/14/16 11/14/16 06:59 18:59 Intake Total 120 Output Total 300 Balance -180 - Medications Medications: Current Medications Acetaminophen (Tylenol 650mg/20.3ml Solution Ud) 650 mg PO Q6 PRN PRN Reason: Temperature Last Admin: 11/02/16 23:46 Dose: 650 mg Albumin Human (Albumin Human 25% (12.5 Gm/50 Ml)) 12.5 gm IV Q8H [facility] Last Admin: 10/27/16 12:01 Dose: Not Given Albuterol/Ipratropium (Duoneb 3 Mg/0.5 Mg (3 Ml) Ud) 3 ml INH RQ6 [facility] Last Admin: 11/14/16 07:58 Dose: 3 ml Epoetin Humphrey (Procrit) 10,000 unit IV MWF [facility] Last Admin: 11/13/16 18:10 Dose: 10,000 unit Lactic Acid (Lac-Hydrin 12% Lotion (225 G)) 0 gm EXT BID [facility] Last Admin: 11/13/16 19:41 Dose: 1 applic Multivitamins (Hexavitamin) 1 tab PO DAILY [facility] Last Admin: 11/13/16 09:42 Dose: 1 tab Pantoprazole Sodium (Protonix Ec Tab) 40 mg PO DAILY [facility] Last Admin: 11/13/16 09:42 Dose: 40 mg Saccharomyces Boulardii (Florastor) 250 mg PO BID [facility] Last Admin: 11/13/16 19:41 Dose: 250 mg Sevelamer Carbonate (Renvela) 800 mg PO TIDCC [facility] Last Admin: 11/13/16 19:41 Dose: 800 mg - Labs Labs: 11/14/16 07:00 11/14/16 07:00 PT 17.7 SECONDS (9.7-12.2) H 10/29/16 06:22 INR 1.6 10/29/16 06:22 APTT 30 SECONDS (21-34) 10/29/16 06:22
[2016-11-14 09:09] LABS: BASOPHIL 1 % (0-2); EOSINOPHIL 8 % (0-4); NEUTROPHIL 74 % (50-75); REACTIVE LYMPHOCYTES 2 % (0-0); TOTAL CELLS COUNTED 100
[2016-11-14] MEDS: Multiple Vitamins Tab PO SCH (09:58)
[2016-11-14] MEDS: Saccharomyces Boulardi 250 mg Cap PO SCH ×2 (09:58→17:14)
[2016-11-14] MEDS: Pantoprazole 40 mg EC Tab PO SCH (09:58)
[2016-11-14] MEDS: Ammonium Lactate 12% Lotion (225 g) EXT SCH ×2 (09:58→17:13)
--- NOTE | 2016-11-14 10:47 | CP.PCM.PN ---
<Solange Robison - Last Filed: 11/14/16 10:40> Subjective - Date & Time of Evaluation Date of Evaluation: 11/14/16 Time of Evaluation: 10:40 - Subjective Subjective: Gastroenterology Fellow/PGY5 Progress Note Patient resting comfortably. Denies further episodes of coughing up blood. Notes bowel movement yesterday with out melena or hematochezia. Tolerating regular diet. A 12-point review of systems negative except for as above. Objective - Vital Signs/Intake and Output Vital Signs (last 24 hours): Temp Pulse Resp BP Pulse Ox 98.1 F 98 H 12 97/61 L 87 L 11/14/16 08:00 11/14/16 08:19 11/14/16 08:19 11/14/16 08:19 11/14/16 08:19 Intake and Output: 11/14/16 11/14/16 06:59 18:59 Intake Total 120 250 Output Total 300 Balance -180 250 - Medications Medications: Current Medications Acetaminophen (Tylenol 650mg/20.3ml Solution Ud) 650 mg PO Q6 PRN PRN Reason: Temperature Last Admin: 11/02/16 23:46 Dose: 650 mg Albumin Human (Albumin Human 25% (12.5 Gm/50 Ml)) 12.5 gm IV Q8H [facility] Last Admin: 10/27/16 12:01 Dose: Not Given Albuterol/Ipratropium (Duoneb 3 Mg/0.5 Mg (3 Ml) Ud) 3 ml INH RQ6 [facility] Last Admin: 11/14/16 07:58 Dose: 3 ml Epoetin Humphrey (Procrit) 10,000 unit IV MWF [facility] Last Admin: 11/13/16 18:10 Dose: 10,000 unit Lactic Acid (Lac-Hydrin 12% Lotion (225 G)) 0 gm EXT BID [facility] Last Admin: 11/14/16 09:58 Dose: 1 applic Multivitamins (Hexavitamin) 1 tab PO DAILY [facility] Last Admin: 11/14/16 09:58 Dose: 1 tab Pantoprazole Sodium (Protonix Ec Tab) 40 mg PO DAILY [facility] Last Admin: 11/14/16 09:58 Dose: 40 mg Saccharomyces Boulardii (Florastor) 250 mg PO BID [facility] Last Admin: 11/14/16 09:58 Dose: 250 mg Sevelamer Carbonate (Renvela) 800 mg PO TIDCC [facility] Last Admin: 11/14/16 08:06 Dose: 800 mg - Labs Labs: 11/14/16 07:00 11/14/16 07:00 PT 17.7 SECONDS (9.7-12.2) H 10/29/16 06:22 INR 1.6 10/29/16 06:22 APTT 30 SECONDS (21-34) 10/29/16 06:22 - Constitutional Appears: Non-toxic, No Acute Distress - Head Exam Head Exam: ATRAUMATIC, NORMOCEPHALIC - Eye Exam Eye Exam: EOMI, PERRL Pupil Exam: PERRL. absent: Miosis, Mydriatic - ENT Exam ENT Exam: Mucous Membranes Moist, Normal Oropharynx - Neck Exam Neck Exam: Full ROM, Normal Inspection - Respiratory Exam Respiratory Exam: Clear to Ausculation Bilateral. absent: Rales, Rhonchi, Wheezes - Cardiovascular Exam Cardiovascular Exam: RRR, +S1, +S2. absent: Gallop, Rubs - GI/Abdominal Exam GI & Abdominal Exam: Soft, Normal Bowel Sounds. absent: Distended, Firm, Guarding, Rigid, Tenderness, Organomegaly, Rebound - Extremities Exam Extremities Exam: Normal Inspection. absent: Pedal Edema - Neurological Exam Neurological Exam: Alert, Awake - Psychiatric Exam Psychiatric exam: Normal Affect, Normal Mood - Skin Skin Exam: Dry, Intact, Normal Color, Warm Assessment and Plan - Assessment and Plan (Free Text) Assessment: 45 year old male wit hhistory of Alcohol abuse presenting obtunded. Active treatment of hypoxic ventilator dependent respiratory failure secondary to right -sided pneumonia with loculated effusion complicated by pneumothorax (resolved) and extubated on 11/04/16, acute renal failure on HD, resolving alcoholic hepatitis, and alcohol withdrawal complicated by seizure. GI consultation for concern of GI bleed due to anemia of chronic disease 2/2 to alcohol abuse, renal insufficiency, nutritional deficiency, and FOBT positive 1 of 3 samples. No prior EGD or colonoscopy. Plan: >H/H stable >no overt GI blood loss >tolerating diet >continue PPI daily >Doppler U/S- normal, left hepatic cyst >LFTs trending down >outpatient EGD/colonoscopy once medically optimized >thank you for opportunity to participate in the care of this patient <Colton Cloud - Last Filed: 11/14/16 10:56> Objective - Vital Signs/Intake and Output Vital Signs (last 24 hours): Temp Pulse Resp BP Pulse Ox 98.1 F 98 H 12 97/61 L 87 L 11/14/16 08:00 11/14/16 08:19 11/14/16 08:19 11/14/16 08:19 11/14/16 08:19 Intake and Output: 11/14/16 11/14/16 06:59 18:59 Intake Total 120 250 Output Total 300 Balance -180 250 - Medications Medications: Current Medications Acetaminophen (Tylenol 650mg/20.3ml Solution Ud) 650 mg PO Q6 PRN PRN Reason: Temperature Last Admin: 11/02/16 23:46 Dose: 650 mg Albumin Human (Albumin Human 25% (12.5 Gm/50 Ml)) 12.5 gm IV Q8H [facility] Last Admin: 10/27/16 12:01 Dose: Not Given Albuterol/Ipratropium (Duoneb 3 Mg/0.5 Mg (3 Ml) Ud) 3 ml INH RQ6 [facility] Last Admin: 11/14/16 07:58 Dose: 3 ml Epoetin Humphrey (Procrit) 10,000 unit IV MWF [facility] Last Admin: 11/13/16 18:10 Dose: 10,000 unit Lactic Acid (Lac-Hydrin 12% Lotion (225 G)) 0 gm EXT BID [facility] Last Admin: 11/14/16 09:58 Dose: 1 applic Multivitamins (Hexavitamin) 1 tab PO DAILY [facility] Last Admin: 11/14/16 09:58 Dose: 1 tab Pantoprazole Sodium (Protonix Ec Tab) 40 mg PO DAILY [facility] Last Admin: 11/14/16 09:58 Dose: 40 mg Saccharomyces Boulardii (Florastor) 250 mg PO BID [facility] Last Admin: 11/14/16 09:58 Dose: 250 mg Sevelamer Carbonate (Renvela) 800 mg PO TIDCC [facility] Last Admin: 11/14/16 08:06 Dose: 800 mg - Labs Labs: 11/14/16 07:00 11/14/16 07:00 PT 17.7 SECONDS (9.7-12.2) H 10/29/16 06:22 INR 1.6 10/29/16 06:22 APTT 30 SECONDS (21-34) 10/29/16 06:22 Attending/Attestation - Attestation I have personally seen and examined this patient.: Yes I have fully participated in the care of the patient.: Yes I have reviewed all pertinent clinical information, including history, physical exam and plan: Yes Notes (Text): 11/14/16 10:51 I have seen and examined patient with GI fellow. No acute events overnight, he is seen sitting in chair at bedside, appears comfortable. He denies abdominal pain, nausea, vomiting, fever/chills. Tolerating PO diet without difficulty. Pneumonia ETOH abuse, withdrawal Acute renal insufficiency requiring initiation of HD Anemia - H/H stable, continue to monitor, no overt bleeding noted - Diet as tolerated - Continue with PPI therapy - LFTs stable, continue to monitor - ETOH cessation counseling provided to patient - Patient would benefit from elective outpatient endoscopic evaluation following resolution of acute medical issues. No planned inpatient GI intervention, will sign off case. Please reconsult as necessary, thank you.
--- NOTE | 2016-11-14 17:43 | CP.PCM.PN ---
Subjective - Date & Time of Evaluation Date of Evaluation: 11/14/16 Time of Evaluation: 17:41 - Subjective Subjective: Follow up Nephrology Consultation Note Assessment: Stable Acute Kidney Injury (N17.9) ? due to sepsis (acute tubular necrosis), hepatorenal. started on HD Anemia (D64.9), Hyperphosphatemia (E83.39), thrombocytopenia alcoholic liver disease, pneumonia, alcohol abuse Plan No acute need for renal replacement therapy today. UOP improving. last HD wednesday. continue to monitor for renal recovery and monitor off HD. Hypertension control with meds as ordered. Patient not on ACEI/ARB due to recent RPUALI. BP on low side Monitor Input/Output, daily weights and renal function with basic metabolic panel pt on renvela for elevated phos also getting epogen with HD Dose meds/antibiotics for reduced GFR. Avoid fleets enema/magnesium based laxatives. Avoid nephrotoxins/NSAIDs/ iodinated contrast (unless needed emergently) Glycemic control Further work up for as per primary team Thanks for allowing me to participate in care of your patient. Will follow patient with you. Please call if any Qs Dr Frandy Pantoja Office: [phone] Subjective: Noted events overnight. Patients feels better. Denies chest pain, palpitation, shortness of breath, leg swelling. No urinary complaints. has improved UOP 720 mL Physical Examination: General Appearance: Comfortable, in no acute respiratory distress, co- operative. Vitals reviewed and noted as below Lungs: Normal respiratory rate/effort. Breath sounds bilateral equal and clear Heart: Normal rate. s1s2 normal. No rub or gallop. Extremities: no edema. Neurological: Patient is alert, awake and oriented to person, place and time. No focal deficit. Strength bilateral appropriate and equal Skin: Warm and dry. Normal turgor. No rash. Palpitation: Normal elasticity for age Abdomen: Abdomen is soft. Bowel sounds +. There is no abdominal tenderness, no guarding/rigidity has hepatomegaly : kidney or bladder not palpable Access: IJ catheter Labs/imaging reviewed. Past medical history, past surgical history, family history, social history, allergy reviewed Work up Phos 4 TSAT 34% Objective - Vital Signs/Intake and Output Vital Signs (last 24 hours): Temp Pulse Resp BP Pulse Ox 98.7 F 89 13 101/59 L 95 11/14/16 16:00 11/14/16 16:36 11/14/16 16:36 11/14/16 16:36 11/14/16 16:00 Intake and Output: 11/14/16 11/14/16 06:59 18:59 Intake Total 120 700 Output Total 300 300 Balance -180 400 - Medications Medications: Current Medications Acetaminophen (Tylenol 650mg/20.3ml Solution Ud) 650 mg PO Q6 PRN PRN Reason: Temperature Last Admin: 11/02/16 23:46 Dose: 650 mg Albumin Human (Albumin Human 25% (12.5 Gm/50 Ml)) 12.5 gm IV Q8H [facility] Last Admin: 10/27/16 12:01 Dose: Not Given Albuterol/Ipratropium (Duoneb 3 Mg/0.5 Mg (3 Ml) Ud) 3 ml INH RQ6 [facility] Last Admin: 11/14/16 13:40 Dose: 3 ml Epoetin Humphrey (Procrit) 10,000 unit IV MWF [facility] Last Admin: 11/13/16 18:10 Dose: 10,000 unit Lactic Acid (Lac-Hydrin 12% Lotion (225 G)) 0 gm EXT BID [facility] Last Admin: 11/14/16 17:13 Dose: 1 applic Multivitamins (Hexavitamin) 1 tab PO DAILY [facility] Last Admin: 11/14/16 09:58 Dose: 1 tab Pantoprazole Sodium (Protonix Ec Tab) 40 mg PO DAILY [facility] Last Admin: 11/14/16 09:58 Dose: 40 mg Saccharomyces Boulardii (Florastor) 250 mg PO BID [facility] Last Admin: 11/14/16 17:14 Dose: 250 mg Sevelamer Carbonate (Renvela) 800 mg PO TIDCC [facility] Last Admin: 11/14/16 17:14 Dose: 800 mg - Labs Labs: 11/14/16 07:00 11/14/16 07:00 PT 17.7 SECONDS (9.7-12.2) H 10/29/16 06:22 INR 1.6 10/29/16 06:22 APTT 30 SECONDS (21-34) 10/29/16 06:22
--- NOTE | 2016-11-14 19:17 | CP.PCM.PN ---
Subjective - Date & Time of Evaluation Date of Evaluation: 11/14/16 Time of Evaluation: 19:11 - Subjective Subjective: Mr. Mekhi Phillips was seen and examined today at bedside. He has been doing well despite his complicated hospital course. However, recently, he has been developing a bilateral essential tremor that seems to be present on intention as well. The tremor sometimes also involved his voice and speech. Objective - Vital Signs/Intake and Output Vital Signs (last 24 hours): Temp Pulse Resp BP Pulse Ox 98.7 F 89 13 101/59 L 95 11/14/16 16:00 11/14/16 16:36 11/14/16 16:36 11/14/16 16:36 11/14/16 16:00 Intake and Output: 11/14/16 11/15/16 18:59 06:59 Intake Total 700 Output Total 300 Balance 400 - Medications Medications: Current Medications Acetaminophen (Tylenol 650mg/20.3ml Solution Ud) 650 mg PO Q6 PRN PRN Reason: Temperature Last Admin: 11/02/16 23:46 Dose: 650 mg Albumin Human (Albumin Human 25% (12.5 Gm/50 Ml)) 12.5 gm IV Q8H [facility] Last Admin: 10/27/16 12:01 Dose: Not Given Albuterol/Ipratropium (Duoneb 3 Mg/0.5 Mg (3 Ml) Ud) 3 ml INH RQ6 [facility] Last Admin: 11/14/16 13:40 Dose: 3 ml Epoetin Humphrey (Procrit) 10,000 unit IV MWF [facility] Last Admin: 11/13/16 18:10 Dose: 10,000 unit Lactic Acid (Lac-Hydrin 12% Lotion (225 G)) 0 gm EXT BID [facility] Last Admin: 11/14/16 17:13 Dose: 1 applic Multivitamins (Hexavitamin) 1 tab PO DAILY [facility] Last Admin: 11/14/16 09:58 Dose: 1 tab Pantoprazole Sodium (Protonix Ec Tab) 40 mg PO DAILY [facility] Last Admin: 11/14/16 09:58 Dose: 40 mg Saccharomyces Boulardii (Florastor) 250 mg PO BID [facility] Last Admin: 11/14/16 17:14 Dose: 250 mg Sevelamer Carbonate (Renvela) 800 mg PO TIDCC [facility] Last Admin: 11/14/16 17:14 Dose: 800 mg - Labs Labs: 11/14/16 07:00 11/14/16 07:00 PT 17.7 SECONDS (9.7-12.2) H 10/29/16 06:22 INR 1.6 10/29/16 06:22 APTT 30 SECONDS (21-34) 10/29/16 06:22 - Neurological Exam Neurological Exam: Abnormal Gait, Awake, CN II-XII Intact, Oriented x3 Neuro motor strength exam: Left Upper Extremity: 5, Right Upper Extremity: 5, Left Lower Extremity: 5, Right Lower Extremity: 5 Additional comments: Bilateral high frequency resting and intention tremor noted. Assessment and Plan (1) Tremor Assessment & Plan: Could be due to alcohol withdrawal or maybe he has this underlying essential tremor, but was being suppressed by his alcohol abuse. His BP is unstable at times and he is hypotensive. Propranolol is not likely to be a good idea at this time with his BP issues. If the primary team agrees, we can try primidone 50 mg daily. Status: Acute
[2016-11-15] MEDS: Albuterol-Ipratrop 3 mg / 0.5 (3 ml) UD INH SCH ×4 (01:18→19:51)
[2016-11-15 06:40] LABS: BASO # 0.1 K/uL (0.0-0.2); BASO % 0.7 % (0.0-2.0); EOS # 1.1 K/uL (0.0-0.7); EOS % 11.8 % (0.0-4.0); HEMATOCRIT 22.9 % (35.0-51.0); LYMPH # 1.1 K/uL (1.0-4.3); MEAN CELL VOLUME 97.6 fL (80.0-94.0); MEAN CORPUSCULAR HEMOGLOBIN 32.5 pg (27.0-31.0); MEAN CORPUSCULAR HGB CONC 33.3 g/dL (33.0-37.0); MEAN PLATELET VOLUME 10.8 fL (7.2-11.7); MONO # 0.5 K/uL (0.0-0.8); MONO % 5.6 % (0.0-10.0); RED CELL DISTRIBUTION WIDTH 15.8 % (11.5-14.5); WHITE BLOOD COUNT 9.7 K/uL (4.8-10.8)
[2016-11-15 06:54] LABS: ALB/GLOB RATIO 0.7 (1.0-2.1); BILIRUBIN,TOTAL 1.4 mg/dL (0.2-1.3); CALCIUM 7.8 mg/dl (8.6-10.4); POTASSIUM 3.3 mmol/L (3.6-5.2); TOTAL PROTEIN 6.1 g/dL (6.3-8.3)
[2016-11-15] MEDS ORDERED: Potassium Chloride 20 mEq ER Tab PO ONE (08:47)
--- NOTE | 2016-11-15 09:03 | CP.PCM.PN ---
Subjective - Date & Time of Evaluation Date of Evaluation: 11/15/16 Time of Evaluation: 08:45 - Subjective Subjective: Hospitalist Progress Note (Patient was seen and examined at 8:45 AM 11/15/16) 45 year old male who presented to the ER here at [facility] on 10/21/16 intoxicated with complaints of cough and abdominal pain. He was found to be hypotensive, hypoxic, with RUL/RML Pneumonia. He eventually required intubation and ventilator support. He was also found to be in Acute Renal Failure and started receiving HD through Right Femoral Access on Wednesday10/23/16, 10/26, and 10/27/16. He was for Right Perm Cath with Dr. De La Vega for 10/28/16 however as his platelets declined, this was put on hold and patient was transfused 2 bags of platelets as per ICU Team. He became hypotensive on and therefore was started on Norepinephrine Drip, Albumin, and Solumedrol. Chest X Ray on 10/29/16 showed Left Pneumothorax and Rehabilitation Services Aide has placed a left sided chest tube pigtail catheter and repeat Chest X Ray showed re -expansion of the Left Lung. He had Right Perm Cath and Left Arm PICC Line placed 10/30/16. He was eventually extubated on 11/04/16. His Chest Tube Pigtail Catheter was removed on 11/12/16. Please see below for Assessment and Plan. NO chest pain, NO palpitation, NO dyspnea/chest tightness, (+) Cough that is usually present early in the morning but no coughing up of blood reported to me by patient, NO dysphagia/odynophagia with eating/drinking, NO abdominal pain, NO n/v/d/c (his last bowel movement was this morning right before my exam and it was normal), NO burning/pain with urination, NO lightheadedness/dizziness while in bed, NO headaches, NO new changes in vision/eye pain/loss of vision, NO new changes in hearing/ear pain/loss of hearing, NO paresthesias. GENERAL: Patient was asleep but easily arousable. Knows who he is, where he is, why he is hear, where he is, the month, the year, and today's date 11/15/16. NO apparent distress at this time and speaking in full sentences with no signs of respiratory distress. Tremulous when he tries to move all 4 of his extremities HEENT: NCA, Pupils are round/reactive to light, Slight Scleral Icterus, NO lymphadenopathy, NO JVD, NO thyromegaly, Nasal turbinates are nonerythematous/ nonedematous/moist, Oral mucosa is dry. Cardio: NS1 and NS2, Systolic Ejection heard best along left sternal border Resp: There are NO longer any decreased breath sounds on the left and lung exam is CTA B/L, NO R/R/W GI: BSx4, Distention, Liver and Spleen could not be adequately palpated secondary to distention, Soft, NT, NO guarding/rebound tenderness Ext: Pulses are strong and equal, Capillary Refill is 2 seconds, NO cyanosis, NO edema, Patches of Psoriasis on the bilateral elbows/bilateral anterior lower legs Neuro: CN II through XII are grossly intact Skin: Bilateral Groin fungal rash has disappeared Assessment and Plan (1) Alcohol withdrawal Assessment & Plan: NO signs of DTs at the time of my exam Thiamine 100 mg IV 1x/day Folic Acid 1 mg IV 1x/day Department Clerk consult to help patient with outpatient AA Status: Acute (2) Hypoxemia/Respiratory Distress Assessment & Plan: Patient was extubated on 11/04/16 Status: Acute (3). Left Pneumothorax/Left Loculated Effusion As per Chest X Ray 11/08/16: moderate loculated left sided pleuaral effusion, moderate to severe venous congestion with confluent consolidative changes at the left mid to lower lung zone, upper lobe granulomatous changes CT Chest 11/09/16 showed improvement in pulmonary edema, persistant Left Pleural Effusion but decreased in size, compressive atelectasis in left lower lobe Chest X Ray 11/10/16 show no change in left hemithorax appearance but decrease in right pleural effusion Chest X Ray 11/11/16 shows no change when compared to 11/10/16, however follow up official reading Chest X Ray 11/12/16 shows interstitial prominence which may reflect infection or edema, probable small pleural effusion, bibasilar atelectasis or infiltrates Chest Tube Pigtail Catheter was removed by ICU Team 11/12/16 Chest X Ray 11/13/16 showed mild bilateral improvement including infiltrate at the mid to inferior left lung zone, pleural effusion, elevated left hemidiaphragm (4)Sepsis Secondary to Pneumonia and Bacteremia Assessment & Plan: Patient received a total of 3 weeks of IV Antibiotics and ID Dr. Bowers has discontinued them Blood Culture 10/21/16 showed S. pneumoniae Blood Culture 10/26/16 showed Coag Neg Staph Repeat Blood Cultures on 10/28/16 and 11/01/16 were negative at 5 days Sputum Culture 11/01/16 was negative NO recent fevers Status: Acute (5). Hypotension Episodes of Hypotension and patient is asymptomatic (6) Seizure disorder Assessment & Plan: Secondary to alcohol withdrawal. NO recent seizure reported Neurology Dr. Pineda Status: Acute (7) Thrombocytopenia Assessment & Plan: Likely Secondary to alcohol abuse. Heparin Abs were also ordered on 10/30/16 and this is NEGATIVE Currently at 75 and this has been relatively stable Status: Chronic (8) Psoriasis Status: Acute (9) Renal failure Assessment & Plan: Renal U/S 10/24/16 showed nonobstructing calculus upper/midpole Right Kidney and Abdominal Ascites Hepatitis Panel is negative Patient was receiving HD through Right Femoral Catheter and this was removed on 10/31/16 S/P Right Chest Perm Cath placement by Vascular Surgeon Dr. De La Vega . HD through Right Chest Perm Cath as per Nephrology Dr. Merida/Derian Sevelamer 800mg PO TID I spoke with Crusher And Bl[employer] Operator Dr. Merida on morning of 11/14/16 and as BUN/Cr is slowly improving, will hold off on Vascular Consult for now for evaluation of AV Fistula placement as patient may not need keno terminal operator dialysis. Dr. Merida's help is greatly appreciated. NO HD planned for 11/15/[address] Oni Pantoja covering for Dr. Merida. Status: Acute (10). Anemia Likely Secondary to Chronic Alcohol Use and Renal Failure Stool Occult Blood 10/21/16 is negative Stool Occult Blood 11/11/16 was POSITIVE: GI Dr. Cee revaluated patient on and recommended monitoring of the HgB/Hct for now and transfuse if necessary. Dr. Cee's help is greatly appreciated HgB/Hct 8.3/24.7 on 11/14/16 and this has dropped to 7.6/22.9. Therefore repeat HgB/Hct at 1 PM and 9 PM 11/15/16. NOT tachycardiac and is asymptomatic therefore will hold off on PRBC transfusion for now. Also ordered was Repeat Occult Blood. Medicine Team, if the Repeat Stool Occult Blood is positive then resconsult GI Dr. Cee as then I feel EGD vs Colonoscopy would be in order. Procrit M-W-F 10,000 Units IV Ferrlecit 125 mg IV 1x/day Continue to monitor (11). Hypokalemia 3.3 today On HD (12). Bilateral Groin Fungal Rash Resolved Nystatin Powder 2x/day for 2 weeks started on 10/26/16 and last dose was on (13). Elevated LFTs Likely secondary to history of Alcohol Abuse Monitor (14). 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 Patient stated that he did not have these tremors before he came to the hospital He is not on any medications currently that will cause the tremor. I reached out to Neurology Dr. Pineda on 11/13/16 and he evaluated patient on 11/14. NO Propanalol considering the low end of normal Blood Pressure. Therefore Primidone 50 mg PO 1x/day QHS has been ordered (as patient did complain of trouble sleeping upon ROS today 11/15/16). (15). Prophylactic Measures Bilateral SCDs Protonix 40 mg IV 1x/day Acetaminophen 650 mg PO Q6H PRN Temp/Fever Florastor 250 mg PO 2x/day Albuterol 2.5 mg INH Q6H Novolin Regular ISS with Accuchecks PT/OT NO ANTICOAGULATION CONSIDERING THE ANEMIA AND THE THROMBOCYTOPENIA. Objective - Vital Signs/Intake and Output Vital Signs (last 24 hours): Temp Pulse Resp BP Pulse Ox 98.4 F 92 H 18 106/63 95 11/15/16 04:00 11/15/16 07:38 11/15/16 04:00 11/15/16 03:25 11/15/16 04:00 Intake and Output: 11/15/16 11/15/16 06:59 18:59 Intake Total 340 Output Total 400 Balance -60 - Medications Medications: Current Medications Acetaminophen (Tylenol 650mg/20.3ml Solution Ud) 650 mg PO Q6 PRN PRN Reason: Temperature Last Admin: 11/02/16 23:46 Dose: 650 mg Albumin Human (Albumin Human 25% (12.5 Gm/50 Ml)) 12.5 gm IV Q8H [facility] Last Admin: 10/27/16 12:01 Dose: Not Given Albuterol/Ipratropium (Duoneb 3 Mg/0.5 Mg (3 Ml) Ud) 3 ml INH RQ6 [facility] Last Admin: 11/15/16 08:02 Dose: 3 ml Epoetin Humphrey (Procrit) 10,000 unit IV MWF [facility] Last Admin: 11/13/16 18:10 Dose: 10,000 unit Lactic Acid (Lac-Hydrin 12% Lotion (225 G)) 0 gm EXT BID [facility] Last Admin: 11/14/16 17:13 Dose: 1 applic Multivitamins (Hexavitamin) 1 tab PO DAILY [facility] Last Admin: 11/14/16 09:58 Dose: 1 tab Pantoprazole Sodium (Protonix Ec Tab) 40 mg PO DAILY [facility] Last Admin: 11/14/16 09:58 Dose: 40 mg Saccharomyces Boulardii (Florastor) 250 mg PO BID [facility] Last Admin: 11/14/16 17:14 Dose: 250 mg Sevelamer Carbonate (Renvela) 800 mg PO TIDCC [facility] Last Admin: 11/15/16 07:51 Dose: 800 mg - Labs Labs: 11/15/16 06:32 11/15/16 06:32 PT 17.7 SECONDS (9.7-12.2) H 10/29/16 06:22 INR 1.6 10/29/16 06:22 APTT 30 SECONDS (21-34) 10/29/16 06:22
[2016-11-15] MEDS: Pantoprazole 40 mg EC Tab PO SCH (09:27)
[2016-11-15] MEDS: Saccharomyces Boulardi 250 mg Cap PO SCH ×2 (09:27→18:05)
[2016-11-15] MEDS: Multiple Vitamins Tab PO SCH (09:27)
[2016-11-15] MEDS: Ammonium Lactate 12% Lotion (225 g) EXT SCH ×2 (09:28→18:05)
[2016-11-15 15:41] LABS: BASO # 0.1 K/uL (0.0-0.2); BASO % 0.7 % (0.0-2.0); EOS # 1.1 K/uL (0.0-0.7); EOS % 10.3 % (0.0-4.0); LYMPH # 1.1 K/uL (1.0-4.3); LYMPH % 10.2 % (20.0-40.0); MEAN CELL VOLUME 97.8 fL (80.0-94.0); MEAN CORPUSCULAR HEMOGLOBIN 32.8 pg (27.0-31.0); MEAN CORPUSCULAR HGB CONC 33.6 g/dL (33.0-37.0); MEAN PLATELET VOLUME 10.8 fL (7.2-11.7); MONO # 0.7 K/uL (0.0-0.8); MONO % 6.3 % (0.0-10.0); RED CELL DISTRIBUTION WIDTH 15.7 % (11.5-14.5); WHITE BLOOD COUNT 10.7 K/uL (4.8-10.8)
--- NOTE | 2016-11-15 16:42 | CP.PCM.PN ---
Subjective - Date & Time of Evaluation Date of Evaluation: 11/15/16 Time of Evaluation: 14:00 - Subjective Subjective: Follow up Nephrology Consultation Note Assessment: Stable Acute Kidney Injury (N17.9) ? due to sepsis (acute tubular necrosis), hepatorenal. started on HD Anemia (D64.9), Hyperphosphatemia (E83.39), thrombocytopenia alcoholic liver disease, pneumonia, alcohol abuse Hypokalemia Plan No acute need for renal replacement therapy today. UOP improved. last HD wednesday. continue to monitor for renal recovery and monitor off HD. Hypertension control with meds as ordered. Patient not on ACEI/ARB due to recent RUPALI. BP on low side Monitor Input/Output, daily weights and renal function with basic metabolic panel pt on renvela for elevated phos also getting epogen 3 times a week. Supplement KDUR Dose meds/antibiotics for reduced GFR. Avoid fleets enema/magnesium based laxatives. Avoid nephrotoxins/NSAIDs/ iodinated contrast (unless needed emergently) Glycemic control Further work up for as per primary team Thanks for allowing me to participate in care of your patient. Dr Merida will follow patient with you from tomorrow. Please call if any Qs Dr Frandy Pantoja Office: [phone] Subjective: Noted events overnight. Patients feels better. Denies chest pain, palpitation, shortness of breath, leg swelling. No urinary complaints. has improved UOP 700 mL Physical Examination: General Appearance: Comfortable, in no acute respiratory distress, co- operative. Vitals reviewed and noted as below Lungs: Normal respiratory rate/effort. Breath sounds bilateral equal and clear Heart: Normal rate. s1s2 normal. No rub or gallop. Extremities: no edema. Neurological: Patient is alert, awake and oriented to person, place and time. No focal deficit. Strength bilateral appropriate and equal Skin: Warm and dry. Normal turgor. No rash. Palpitation: Normal elasticity for age Abdomen: Abdomen is soft. Bowel sounds +. There is no abdominal tenderness, no guarding/rigidity has hepatomegaly : kidney or bladder not palpable Access: IJ catheter Labs/imaging reviewed. Past medical history, past surgical history, family history, social history, allergy reviewed Work up Phos 4 TSAT 34% Ferritin 1090 Objective - Vital Signs/Intake and Output Vital Signs (last 24 hours): Temp Pulse Resp BP Pulse Ox 97.3 F L 97 H 18 106/63 95 11/15/16 07:15 11/15/16 07:38 11/15/16 04:00 11/15/16 03:25 11/15/16 04:00 Intake and Output: 11/15/16 11/15/16 06:59 18:59 Intake Total 340 Output Total 400 Balance -60 - Medications Medications: Current Medications Acetaminophen (Tylenol 650mg/20.3ml Solution Ud) 650 mg PO Q6 PRN PRN Reason: Temperature Last Admin: 11/02/16 23:46 Dose: 650 mg Albumin Human (Albumin Human 25% (12.5 Gm/50 Ml)) 12.5 gm IV Q8H [facility] Last Admin: 10/27/16 12:01 Dose: Not Given Albuterol/Ipratropium (Duoneb 3 Mg/0.5 Mg (3 Ml) Ud) 3 ml INH RQ6 [facility] Last Admin: 11/15/16 13:57 Dose: 3 ml Epoetin Humphrey (Procrit) 10,000 unit IV MWF [facility] Last Admin: 11/13/16 18:10 Dose: 10,000 unit Lactic Acid (Lac-Hydrin 12% Lotion (225 G)) 0 gm EXT BID [facility] Last Admin: 11/15/16 09:28 Dose: 1 applic Multivitamins (Hexavitamin) 1 tab PO DAILY [facility] Last Admin: 11/15/16 09:27 Dose: 1 tab Pantoprazole Sodium (Protonix Ec Tab) 40 mg PO DAILY [facility] Last Admin: 11/15/16 09:27 Dose: 40 mg Primidone (Mysoline) 50 mg PO HS [facility] Saccharomyces Boulardii (Florastor) 250 mg PO BID [facility] Last Admin: 11/15/16 09:27 Dose: 250 mg Sevelamer Carbonate (Renvela) 800 mg PO TIDCC [facility] Last Admin: 11/15/16 12:24 Dose: 800 mg - Labs Labs: 11/15/16 15:27 11/15/16 06:32 PT 17.7 SECONDS (9.7-12.2) H 10/29/16 06:22 INR 1.6 10/29/16 06:22 APTT 30 SECONDS (21-34) 10/29/16 06:22
[2016-11-15 21:48] LABS: BASO % 0.3 % (0.0-2.0); EOS # 1.1 K/uL (0.0-0.7); HEMATOCRIT 22.8 % (35.0-51.0); LYMPH # 1.1 K/uL (1.0-4.3); LYMPH % 12.3 % (20.0-40.0); MEAN CELL VOLUME 97.5 fL (80.0-94.0); MEAN CORPUSCULAR HEMOGLOBIN 32.6 pg (27.0-31.0); MEAN CORPUSCULAR HGB CONC 33.5 g/dL (33.0-37.0); MEAN PLATELET VOLUME 10.6 fL (7.2-11.7); MONO # 0.5 K/uL (0.0-0.8); MONO % 6.2 % (0.0-10.0); WHITE BLOOD COUNT 8.8 K/uL (4.8-10.8)
[2016-11-16 06:26] LABS: BASO % 0.5 % (0.0-2.0); EOS # 1.1 K/uL (0.0-0.7); EOS % 14.3 % (0.0-4.0); HEMATOCRIT 24.1 % (35.0-51.0); LYMPH % 12.4 % (20.0-40.0); MEAN CELL VOLUME 97.6 fL (80.0-94.0); MEAN CORPUSCULAR HEMOGLOBIN 32.3 pg (27.0-31.0); MEAN CORPUSCULAR HGB CONC 33.1 g/dL (33.0-37.0); MEAN PLATELET VOLUME 10.6 fL (7.2-11.7); MONO # 0.5 K/uL (0.0-0.8); MONO % 5.8 % (0.0-10.0); RED CELL DISTRIBUTION WIDTH 15.3 % (11.5-14.5); WHITE BLOOD COUNT 7.7 K/uL (4.8-10.8)
[2016-11-16 06:29] LABS: BILIRUBIN,TOTAL 1.5 mg/dL (0.2-1.3); CALCIUM 7.5 mg/dl (8.6-10.4); MAGNESIUM 1.6 mg/dL (1.6-2.3); PHOSPHOROUS 4.4 mg/dL (2.5-4.5); POTASSIUM 3.6 mmol/L (3.6-5.2); TOTAL PROTEIN 6.2 g/dL (6.3-8.3)
[2016-11-16 06:34] LABS: ALB/GLOB RATIO 0.8 (1.0-2.1)
[2016-11-16] MEDS: Ammonium Lactate 12% Lotion (225 g) EXT SCH ×2 (09:19→17:10)
[2016-11-16] MEDS: Saccharomyces Boulardi 250 mg Cap PO SCH ×2 (09:19→17:10)
[2016-11-16] MEDS: Pantoprazole 40 mg EC Tab PO SCH (09:20)
[2016-11-16] MEDS: Multiple Vitamins Tab PO SCH (09:20)
--- NOTE | 2016-11-16 10:08 | CP.PCM.PN ---
Subjective - Date & Time of Evaluation Date of Evaluation: 11/16/16 Time of Evaluation: 10:00 - Subjective Subjective: Appears comfortable sitting up in recliner Denies feeling SOB Objective - Vital Signs/Intake and Output Vital Signs (last 24 hours): Temp Pulse Resp BP Pulse Ox 98.8 F 92 H 16 105/69 95 11/16/16 00:00 11/15/16 15:00 11/16/16 00:00 11/15/16 07:27 11/15/16 04:00 Intake and Output: 11/16/16 11/16/16 06:59 18:59 Intake Total 350 Output Total 900 Balance -550 - Medications Medications: Current Medications Acetaminophen (Tylenol 650mg/20.3ml Solution Ud) 650 mg PO Q6 PRN PRN Reason: Temperature Last Admin: 11/02/16 23:46 Dose: 650 mg Epoetin Humphrey (Procrit) 10,000 unit IV MWF [facility] Last Admin: 11/13/16 18:10 Dose: 10,000 unit Famotidine (Pepcid) 20 mg PO DAILY [facility] Lactic Acid (Lac-Hydrin 12% Lotion (225 G)) 0 gm EXT BID [facility] Last Admin: 11/16/16 09:19 Dose: 1 applic Multivitamins (Hexavitamin) 1 tab PO DAILY [facility] Last Admin: 11/16/16 09:20 Dose: 1 tab Primidone (Mysoline) 50 mg PO HS [facility] Last Admin: 11/15/16 22:17 Dose: 50 mg Saccharomyces Boulardii (Florastor) 250 mg PO BID [facility] Last Admin: 11/16/16 09:19 Dose: 250 mg Sevelamer Carbonate (Renvela) 800 mg PO TIDCC [facility] Last Admin: 11/16/16 08:17 Dose: 800 mg - Labs Labs: 11/16/16 06:07 11/16/16 06:06 PT 17.7 SECONDS (9.7-12.2) H 10/29/16 06:22 INR 1.6 10/29/16 06:22 APTT 30 SECONDS (21-34) 10/29/16 06:22 - Respiratory Exam Respiratory Exam: NORMAL BREATHING PATTERN Additional comments: Decreased BS over Lt base. Rt lung clear - Cardiovascular Exam Cardiovascular Exam: REGULAR RHYTHM - GI/Abdominal Exam GI & Abdominal Exam: Soft - Extremities Exam Additional comments: No edema Assessment and Plan - Assessment and Plan (Free Text) Assessment: Resolving RUPALI Will hold dialysis today Anemia Pneumonia also improving Plan: Hold dialysis . Will order 24 hr urine for creat clearance D/C Renvela
--- NOTE | 2016-11-16 14:52 | PCM.PSYCH ---
Initial Psychiatric Evaluation - Initial Psychiatric Evaluation Type of Admission: Voluntary Legal Status: Capacity Chief Complaint (in patient's own words): "Not well" History of Present Illness and Precipitating Events: The pt is seen, chart reviewed and case discussed. Consult is requested for his psych sxs. This is a 45 yo LM, , has one child, lives alone, currently homeless and unemployed. He says he is stressed about his finances, living conditions. He has been drinking "a lot" since 2001 but started when he was 12 yo, denies drugs No previous treatment hx but had 2 years sobriety He denies past psych sxs but feels anxious and down now Past psych hx: Denies Family psych hx: Uncles drink Medical hx: Denies Current Medications: Active Medications Generic Name Dose Route Start Last Admin Trade Name Freq PRN Reason Stop Dose Admin Acetaminophen 650 mg 10/25/16 11:56 11/02/16 23:46 Tylenol 650mg/20.3ml Solution Ud PO 650 mg Q6 PRN Administration Temperature Epoetin Humphrey 10,000 unit 11/02/16 14:45 11/13/16 18:10 Procrit IV 10,000 unit MWF [facility] Administration Famotidine 20 mg 11/16/16 10:00 11/16/16 12:20 Pepcid PO Not Given DAILY [facility] Lactic Acid 0 gm 10/22/16 13:00 11/16/16 09:19 Lac-Hydrin 12% Lotion (225 G) EXT 1 applic BID [facility] Administration Multivitamins 1 tab 11/06/16 10:00 11/16/16 09:20 Hexavitamin PO 1 tab DAILY [facility] Administration Primidone 50 mg 11/15/16 22:00 11/15/16 22:17 Mysoline PO 50 mg HS [facility] Administration Saccharomyces Boulardii 250 mg 11/09/16 10:00 11/16/16 09:19 Florastor PO 250 mg BID [facility] Administration Past Psychiatric History - Past Psychiatric History Previous Treatment History: None Pertinent Medical Hx (Current Medical&Sleep Prob, Allergies): Allergies Allergy/AdvReac Type Severity Reaction Status Date / Time No Known Allergies Allergy Verified 10/21/16 10:28 Review of Systems - Psychiatric Psychiatric: Abnormal Sleep Pattern, Anxiety, Depression. absent: Hallucinations, Homicidal Ideation, Suicidal Ideation Mental Status Examination - Personal Presentation Personal Presentation: Looks stated age - Affect Affect: Constricted - Motor Activity Motor Activity: Calm - Reliability in Providing Information Reliability in Providing Information: Good - Speech Speech: Organized - Mood Mood: Depressed, Anxious - Cognitive Functions Orientation: Person, Place, Situation, Time Sensorium: Alert Attention/Concentration: Attentive Estimate of Intelligence: Average Judgement: Intact, as evidence by: Insight regarding need for hospitalization Memory: Recent intact, as evidence by: Ability to recall events of the day, Remote intact, as evidenced by: Abilit to recall sig. life events - Risk Risk: Withdrawal, Diminished functioning - Strength & Assets Inventory Strength & Assets Inventory: Cooperative - Limitations Limitations: Living alone, Other DSM 5 DX - DSM 5 DSM 5 Diagnosis: Alcohol use d/o - severe Depressive d/o - unspecified Anxiety d/o - unspecified - Recommended/Plan of Treatment Treatment Recommendations and Plan of Treatment: Lexapro for depression and anxiety CBt and support No wdw sxs Cont vitamins Refer to rehab 33 min
[2016-11-16] MEDS: EPOETIN ALFA 10,000 UNIT/ML ML IV SCH (19:15)
--- NOTE | 2016-11-16 20:07 | CP.PCM.PN ---
<Roberto Jackson - Last Filed: 11/16/16 19:59> Subjective - Date & Time of Evaluation Date of Evaluation: 11/16/16 Time of Evaluation: 20:00 - Subjective Subjective: PGY-[address] Giles HPI: Patient seen and examined at bedside. Doing well with no complaints at this time. Sitting up in chair comfortably. Denies CP, SOB, N/V/D/F/Chills. Objective - Vital Signs/Intake and Output Vital Signs (last 24 hours): Temp Pulse Resp BP Pulse Ox 98.8 F 92 H 16 105/69 95 11/16/16 00:00 11/15/16 15:00 11/16/16 00:00 11/15/16 07:27 11/15/16 04:00 - Medications Medications: Current Medications Acetaminophen (Tylenol 650mg/20.3ml Solution Ud) 650 mg PO Q6 PRN PRN Reason: Temperature Last Admin: 11/02/16 23:46 Dose: 650 mg Epoetin Humphrey (Procrit) 10,000 unit IV MWF [facility] Last Admin: 11/16/16 19:15 Dose: Not Given Escitalopram Oxalate (Lexapro) 5 mg PO DAILY [facility] Last Admin: 11/16/16 15:42 Dose: 5 mg Famotidine (Pepcid) 20 mg PO DAILY [facility] Last Admin: 11/16/16 12:20 Dose: Not Given Lactic Acid (Lac-Hydrin 12% Lotion (225 G)) 0 gm EXT BID [facility] Last Admin: 11/16/16 17:10 Dose: 1 applic Multivitamins (Hexavitamin) 1 tab PO DAILY [facility] Last Admin: 11/16/16 09:20 Dose: 1 tab Primidone (Mysoline) 50 mg PO HS [facility] Last Admin: 11/15/16 22:17 Dose: 50 mg Saccharomyces Boulardii (Florastor) 250 mg PO BID [facility] Last Admin: 11/16/16 17:10 Dose: 250 mg - Labs Labs: 11/16/16 06:07 11/16/16 06:06 PT 17.7 SECONDS (9.7-12.2) H 10/29/16 06:22 INR 1.6 10/29/16 06:22 APTT 30 SECONDS (21-34) 10/29/16 06:22 - Constitutional Appears: Well, Non-toxic, No Acute Distress - Head Exam Head Exam: ATRAUMATIC, NORMAL INSPECTION, NORMOCEPHALIC - Eye Exam Eye Exam: EOMI - ENT Exam ENT Exam: Mucous Membranes Moist - Respiratory Exam Respiratory Exam: Clear to Ausculation Bilateral, NORMAL BREATHING PATTERN - Cardiovascular Exam Cardiovascular Exam: REGULAR RHYTHM - GI/Abdominal Exam GI & Abdominal Exam: Soft, Normal Bowel Sounds. absent: Distended, Tenderness - Neurological Exam Neurological Exam: Alert, Awake - Psychiatric Exam Psychiatric exam: Normal Affect, Normal Mood - Skin Skin Exam: Dry, Intact, Normal Color, Warm Assessment and Plan - Assessment and Plan (Free Text) Assessment: Alcohol withdrawal NO signs of DTs Thiamine 100 mg IV 1x/day Folic Acid 1 mg IV 1x/day Foundation Director consult to help patient with outpatient AA Hypoxemia/Respiratory Distress Patient was extubated on 11/04/16 Left Pneumothorax/Left Loculated Effusion As per Chest X Ray 11/08/16: moderate loculated left sided pleuaral effusion, moderate to severe venous congestion with confluent consolidative changes at the left mid to lower lung zone, upper lobe granulomatous changes CT Chest 11/09/16 showed improvement in pulmonary edema, persistant Left Pleural Effusion but decreased in size, compressive atelectasis in left lower lobe Chest X Ray 11/10/16 show no change in left hemithorax appearance but decrease in right pleural effusion Chest X Ray 11/11/16 shows no change when compared to 11/10/16, however follow up official reading Chest X Ray 11/12/16 shows interstitial prominence which may reflect infection or edema, probable small pleural effusion, bibasilar atelectasis or infiltrates Chest Tube Pigtail Catheter was removed by ICU Team 11/12/16 Chest X Ray 11/13/16 showed mild bilateral improvement including infiltrate at the mid to inferior left lung zone, pleural effusion, elevated left hemidiaphragm Sepsis Secondary to Pneumonia and Bacteremia Patient received a total of 3 weeks of IV Antibiotics and ID Dr. Bowers has discontinued them Blood Culture 10/21/16 showed S. pneumoniae Blood Culture 10/26/16 showed Coag Neg Staph Repeat Blood Cultures on 10/28/16 and 11/01/16 were negative at 5 days Sputum Culture 11/01/16 was negative NO recent fevers Hypotension Episodes of Hypotension and patient is asymptomatic Seizure disorder Secondary to alcohol withdrawal. NO recent seizure reported Neurology Dr. Pineda Thrombocytopenia Likely Secondary to alcohol abuse. Heparin Abs were also ordered on 10/30/16 and this is NEGATIVE Currently at 75 and this has been relatively stable Psoriasis Renal failure Renal U/S 10/24/16 showed nonobstructing calculus upper/midpole Right Kidney and Abdominal Ascites Hepatitis Panel is negative Patient was receiving HD through Right Femoral Catheter and this was removed on 10/31/16 S/P Right Chest Perm Cath placement by Vascular Surgeon Dr. De La Vega . HD through Right Chest Perm Cath as per Nephrology Dr. Merida/Derian Sevelamer 800mg PO TID NO HD today, 24 hr Urine for Creatinine clearance Anemia Likely Secondary to Chronic Alcohol Use and Renal Failure Stool Occult Blood 10/21/16 is negative Stool Occult Blood 11/11/16 was POSITIVE: GI Dr. Cee revaluated patient on and recommended monitoring of the HgB/Hct for now and transfuse if necessary. Dr. Cee's help is greatly appreciated HgB/Hct 8.3/24.7 on 11/14/16 and this has dropped to 7.6/22.9. Therefore repeat HgB/Hct at 1 PM and 9 PM 11/15/16. NOT tachycardiac and is asymptomatic therefore will hold off on PRBC transfusion for now. Also ordered was Repeat Occult Blood. Medicine Team, if the Repeat Stool Occult Blood is positive then resconsult GI Dr. Cee as then I feel EGD vs Colonoscopy would be in order. 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 Patient stated that he did not have these tremors before he came to the hospital He is not on any medications currently that will cause the tremor. NO Propanalol considering the low end of normal Blood Pressure Primidone 50 mg PO 1x/day QHS has been ordered (as patient did complain of trouble sleeping upon ROS today 11/15/16). Prophylactic Measures Bilateral SCDs Protonix 40 mg IV 1x/day Acetaminophen 650 mg PO Q6H PRN Temp/Fever Florastor 250 mg PO 2x/day Albuterol 2.5 mg INH Q6H Novolin Regular ISS with Accuchecks PT/OT <Juan C Giles M - Last Filed: 11/17/16 15:51> Objective - Vital Signs/Intake and Output Vital Signs (last 24 hours): Temp Pulse Resp BP Pulse Ox 98.1 F 88 18 130/67 98 11/17/16 04:00 11/16/16 20:00 11/16/16 20:00 11/16/16 20:00 11/16/16 20:00 Intake and Output: 11/17/16 11/17/16 06:59 18:59 Intake Total 570 Output Total 550 Balance 20 - Medications Medications: Current Medications Acetaminophen (Tylenol 650mg/20.3ml Solution Ud) 650 mg PO Q6 PRN PRN Reason: Temperature Last Admin: 11/02/16 23:46 Dose: 650 mg Epoetin Humphrey (Procrit) 10,000 unit IV F [facility] Last Admin: 11/16/16 19:15 Dose: Not Given Escitalopram Oxalate (Lexapro) 5 mg PO DAILY [facility] Last Admin: 11/17/16 10:29 Dose: 5 mg Famotidine (Pepcid) 20 mg PO DAILY [facility] Last Admin: 11/17/16 10:29 Dose: 20 mg Lactic Acid (Lac-Hydrin 12% Lotion (225 G)) 0 gm EXT BID [facility] Last Admin: 11/17/16 10:30 Dose: 1 applic Multivitamins (Hexavitamin) 1 tab PO DAILY [facility] Last Admin: 11/17/16 10:29 Dose: 1 tab Primidone (Mysoline) 50 mg PO HS [facility] Last Admin: 11/16/16 22:16 Dose: 50 mg Saccharomyces Boulardii (Florastor) 250 mg PO BID [facility] Last Admin: 11/17/16 10:29 Dose: 250 mg - Labs Labs: 11/17/16 15:16 11/17/16 15:16 PT 17.7 SECONDS (9.7-12.2) H 10/29/16 06:22 INR 1.6 10/29/16 06:22 APTT 30 SECONDS (21-34) 10/29/16 06:22 Assessment and Plan (1) Alcohol withdrawal Status: Acute (2) Hypoxemia Status: Acute (3) Pneumonia Status: Acute (4) Respiratory distress Status: Acute (5) Seizure disorder Status: Acute (6) Sepsis Status: Acute (7) Thrombocythemia Status: Chronic (8) Psoriasis Status: Acute (9) Renal failure Status: Acute (10) Spontaneous pneumothorax Status: Acute Attending/Attestation - Attestation I have personally seen and examined this patient.: Yes I have fully participated in the care of the patient.: Yes I have reviewed all pertinent clinical information, including history, physical exam and plan: Yes Notes (Text): 11/17/16 15:50 Patient was seen and examined at bedside with the resident Patient appears comfortable No signs of withdrawal now Patient is off hemodialysis now Continue to monitor on telemetry Discussed the plan of care with the resident agree with history and physical and assessment/plan documented.
--- NOTE | 2016-11-17 07:36 | CP.PCM.PN ---
<Arden Tena - Last Filed: 11/17/16 17:44> Subjective - Date & Time of Evaluation Date of Evaluation: 11/17/16 Time of Evaluation: 07:35 - Subjective Subjective: PGY1 Medicine Note for Dr. Giles Patient seen and examined this morning at bedside. Patient states that he is doing well and is currently not in any pain. He has no complaints. He was able to sit in the chair next to his bed with no problems. Denies f/c, n/v, d/c, sob , cp, lightedheadness, dizziness, visual changes, or palpitations. Objective - Vital Signs/Intake and Output Vital Signs (last 24 hours): Temp Pulse Resp BP Pulse Ox 98.2 F 88 18 130/67 98 11/16/16 20:00 11/16/16 20:00 11/16/16 20:00 11/16/16 20:00 11/16/16 20:00 - Medications Medications: Current Medications Acetaminophen (Tylenol 650mg/20.3ml Solution Ud) 650 mg PO Q6 PRN PRN Reason: Temperature Last Admin: 11/02/16 23:46 Dose: 650 mg Epoetin Humphrey (Procrit) 10,000 unit IV MWF [facility] Last Admin: 11/16/16 19:15 Dose: Not Given Escitalopram Oxalate (Lexapro) 5 mg PO DAILY [facility] Last Admin: 11/16/16 15:42 Dose: 5 mg Famotidine (Pepcid) 20 mg PO DAILY [facility] Last Admin: 11/16/16 12:20 Dose: Not Given Lactic Acid (Lac-Hydrin 12% Lotion (225 G)) 0 gm EXT BID [facility] Last Admin: 11/16/16 17:10 Dose: 1 applic Multivitamins (Hexavitamin) 1 tab PO DAILY [facility] Last Admin: 11/16/16 09:20 Dose: 1 tab Primidone (Mysoline) 50 mg PO HS [facility] Last Admin: 11/16/16 22:16 Dose: 50 mg Saccharomyces Boulardii (Florastor) 250 mg PO BID [facility] Last Admin: 11/16/16 17:10 Dose: 250 mg - Labs Labs: 11/16/16 06:07 11/16/16 06:06 PT 17.7 SECONDS (9.7-12.2) H 10/29/16 06:22 INR 1.6 10/29/16 06:22 APTT 30 SECONDS (21-34) 10/29/16 06:22 - Constitutional Appears: No Acute Distress, Older Than Stated Age - Head Exam Head Exam: ATRAUMATIC, NORMOCEPHALIC - Eye Exam Eye Exam: EOMI, Normal appearance - ENT Exam ENT Exam: Mucous Membranes Moist - Respiratory Exam Respiratory Exam: Clear to Ausculation Bilateral, NORMAL BREATHING PATTERN. absent: Accessory Muscle Use, Respiratory Distress - Cardiovascular Exam Cardiovascular Exam: REGULAR RHYTHM, +S1, +S2 - GI/Abdominal Exam GI & Abdominal Exam: Soft, Normal Bowel Sounds. absent: Distended, Tenderness - Extremities Exam Extremities Exam: absent: Calf Tenderness, Pedal Edema - Neurological Exam Neurological Exam: Alert, Awake, Oriented x3 - Psychiatric Exam Psychiatric exam: Normal Affect, Normal Mood - Skin Skin Exam: Dry, Normal Color, Warm Assessment and Plan - Assessment and Plan (Free Text) Plan: Alcohol withdrawal NO signs of DTs Thiamine 100 mg IV 1x/day Folic Acid 1 mg IV 1x/day Sales Support Coordinator consult to help patient with outpatient AA Psych Started patient on Lexapro 5mg PO daily for Depression and Anixety. Will refer to rehab upon discharge. Hypoxemia/Respiratory Distress Patient was extubated on 11/04/16 Left Pneumothorax/Left Loculated Effusion As per Chest X Ray 11/08/16: moderate loculated left sided pleuaral effusion, moderate to severe venous congestion with confluent consolidative changes at the left mid to lower lung zone, upper lobe granulomatous changes CT Chest 11/09/16 showed improvement in pulmonary edema, persistant Left Pleural Effusion but decreased in size, compressive atelectasis in left lower lobe Chest X Ray 11/10/16 show no change in left hemithorax appearance but decrease in right pleural effusion Chest X Ray 11/11/16 shows no change when compared to 11/10/16, however follow up official reading Chest X Ray 11/12/16 shows interstitial prominence which may reflect infection or edema, probable small pleural effusion, bibasilar atelectasis or infiltrates Chest Tube Pigtail Catheter was removed by ICU Team 11/12/16 Chest X Ray 11/13/16 showed mild bilateral improvement including infiltrate at the mid to inferior left lung zone, pleural effusion, elevated left hemidiaphragm Sepsis Secondary to Pneumonia and Bacteremia Patient received a total of 3 weeks of IV Antibiotics and ID Dr. Bowers has discontinued them Blood Culture 10/21/16 showed S. pneumoniae Blood Culture 10/26/16 showed Coag Neg Staph Repeat Blood Cultures on 10/28/16 and 11/01/16 were negative at 5 days Sputum Culture 11/01/16 was negative NO recent fevers Hypotension Episodes of Hypotension and patient is asymptomatic Seizure disorder Secondary to alcohol withdrawal. NO recent seizure reported Neurology Dr. Pineda Thrombocytopenia Likely Secondary to alcohol abuse. Heparin Abs were also ordered on 10/30/16 and this is NEGATIVE Currently at 87 and this has been relatively stable Psoriasis Renal failure Renal U/S 10/24/16 showed nonobstructing calculus upper/midpole Right Kidney and Abdominal Ascites Hepatitis Panel is negative Patient was receiving HD through Right Femoral Catheter and this was removed on 10/31/16 S/P Right Chest Perm Cath placement by Vascular Surgeon Dr. De La Vega . HD through Right Chest Perm Cath as per Nephrology Dr. Merida/Derian Sevelamer 800mg PO TID No HD today, 24 hr Urine for Creatinine clearance HD is currently on Hold, Cr 1.9 Anemia Likely Secondary to Chronic Alcohol Use and Renal Failure Stool Occult Blood 10/21/16 is negative Stool Occult Blood 11/11/16 was POSITIVE: GI Dr. Cee revaluated patient on and recommended monitoring of the HgB/Hct for now and transfuse if necessary. Dr. Cee's help is greatly appreciated HgB/Hct 8.3/24.7 on 11/14/16 and this has dropped to 7.6/22.9. Therefore repeat HgB/Hct at 1 PM and 9 PM 11/15/16. NOT tachycardiac and is asymptomatic therefore will hold off on PRBC transfusion for now. Also ordered was Repeat Occult Blood. Medicine Team, if the Repeat Stool Occult Blood is positive then resconsult GI Dr. Cee as then I feel EGD vs Colonoscopy would be in order. Hgb/Hct increased from 7.6/22.8 to 8.0/24.1. 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 Patient stated that he did not have these tremors before he came to the hospital He is not on any medications currently that will cause the tremor. NO Propanalol considering the low end of normal Blood Pressure Primidone 50 mg PO 1x/day QHS has been ordered (as patient did complain of trouble sleeping upon ROS today 11/15/16). Prophylactic Measures Bilateral SCDs Protonix 40 mg IV 1x/day Acetaminophen 650 mg PO Q6H PRN Temp/Fever Florastor 250 mg PO 2x/day Albuterol 2.5 mg INH Q6H Novolin Regular ISS with Accuchecks PT/OT <Juan C Giles M - Last Filed: 11/18/16 09:50> Objective - Vital Signs/Intake and Output Vital Signs (last 24 hours): Temp Pulse Resp BP Pulse Ox 98.2 F 72 20 122/80 95 11/18/16 07:20 11/18/16 07:20 11/18/16 07:20 11/18/16 07:20 11/18/16 07:20 Intake and Output: 11/18/16 11/18/16 06:59 18:59 Intake Total 150 Output Total 0 Balance 150 - Medications Medications: Current Medications Acetaminophen (Tylenol 650mg/20.3ml Solution Ud) 650 mg PO Q6 PRN PRN Reason: Temperature Last Admin: 11/02/16 23:46 Dose: 650 mg Epoetin Humphrey (Procrit) 10,000 unit IV MWF [facility] Last Admin: 11/16/16 19:15 Dose: Not Given Escitalopram Oxalate (Lexapro) 5 mg PO DAILY [facility] Last Admin: 11/17/16 10:29 Dose: 5 mg Famotidine (Pepcid) 20 mg PO DAILY [facility] Last Admin: 11/17/16 10:29 Dose: 20 mg Lactic Acid (Lac-Hydrin 12% Lotion (225 G)) 0 gm EXT BID [facility] Last Admin: 11/17/16 18:56 Dose: 1 applic Multivitamins (Hexavitamin) 1 tab PO DAILY [facility] Last Admin: 11/17/16 10:29 Dose: 1 tab Primidone (Mysoline) 50 mg PO HS [facility] Last Admin: 11/17/16 22:26 Dose: 50 mg - Labs Labs: 11/17/16 15:16 11/17/16 15:16 PT 17.7 SECONDS (9.7-12.2) H 10/29/16 06:22 INR 1.6 10/29/16 06:22 APTT 30 SECONDS (21-34) 10/29/16 06:22 Assessment and Plan (1) Alcohol withdrawal Status: Acute (2) Hypoxemia Status: Acute (3) Pneumonia Status: Acute (4) Respiratory distress Status: Acute (5) Seizure disorder Status: Acute (6) Sepsis Status: Acute (7) Thrombocythemia Status: Chronic (8) Psoriasis Status: Acute (9) Renal failure Status: Acute (10) Spontaneous pneumothorax Status: Acute Attending/Attestation - Attestation I have personally seen and examined this patient.: Yes I have fully participated in the care of the patient.: Yes I have reviewed all pertinent clinical information, including history, physical exam and plan: Yes Notes (Text): 11/18/16 09:49 Patient was seen and examined at bedside with the resident Patient denies any shortness of breath. However he complains of generalized weakness. We will continue physical therapy Patient is off hemodialysis for now. I discussed the plan of care with the resident and agree with the history and physical and assessment/been documented.
[2016-11-17] MEDS: Saccharomyces Boulardi 250 mg Cap PO SCH (10:29)
[2016-11-17] MEDS: Multiple Vitamins Tab PO SCH (10:29)
[2016-11-17] MEDS: Ammonium Lactate 12% Lotion (225 g) EXT SCH ×2 (10:30→18:56)
--- NOTE | 2016-11-17 10:46 | CP.PCM.PN ---
Subjective - Date & Time of Evaluation Date of Evaluation: 11/17/16 Time of Evaluation: 10:00 - Subjective Subjective: Appears comfirtable No SOB Objective - Vital Signs/Intake and Output Vital Signs (last 24 hours): Temp Pulse Resp BP Pulse Ox 98.1 F 88 18 130/67 98 11/17/16 04:00 11/16/16 20:00 11/16/16 20:00 11/16/16 20:00 11/16/16 20:00 Intake and Output: 11/17/16 11/17/16 06:59 18:59 Intake Total 570 Output Total 550 Balance 20 - Medications Medications: Current Medications Acetaminophen (Tylenol 650mg/20.3ml Solution Ud) 650 mg PO Q6 PRN PRN Reason: Temperature Last Admin: 11/02/16 23:46 Dose: 650 mg Epoetin Humphrey (Procrit) 10,000 unit IV MWF [facility] Last Admin: 11/16/16 19:15 Dose: Not Given Escitalopram Oxalate (Lexapro) 5 mg PO DAILY [facility] Last Admin: 11/17/16 10:29 Dose: 5 mg Famotidine (Pepcid) 20 mg PO DAILY [facility] Last Admin: 11/17/16 10:29 Dose: 20 mg Lactic Acid (Lac-Hydrin 12% Lotion (225 G)) 0 gm EXT BID [facility] Last Admin: 11/17/16 10:30 Dose: 1 applic Multivitamins (Hexavitamin) 1 tab PO DAILY [facility] Last Admin: 11/17/16 10:29 Dose: 1 tab Primidone (Mysoline) 50 mg PO HS [facility] Last Admin: 11/16/16 22:16 Dose: 50 mg Saccharomyces Boulardii (Florastor) 250 mg PO BID [facility] Last Admin: 11/17/16 10:29 Dose: 250 mg - Labs Labs: 11/16/16 06:07 11/16/16 06:06 PT 17.7 SECONDS (9.7-12.2) H 10/29/16 06:22 INR 1.6 10/29/16 06:22 APTT 30 SECONDS (21-34) 10/29/16 06:22 - Respiratory Exam Additional comments: Decreased BS over Lt base. Rt lung clear - Cardiovascular Exam Cardiovascular Exam: REGULAR RHYTHM - Extremities Exam Additional comments: No edema Assessment and Plan - Assessment and Plan (Free Text) Assessment: Resolving RUPALI. Dialysis on hold Pneumonia Liver citthosis,alcoholism Anemia Plan: Labs ordered 24 hr urine in progress
[2016-11-17 15:25] LABS: HEMATOCRIT 25.5 % (35.0-51.0); MEAN CELL VOLUME 98.7 fL (80.0-94.0); MEAN CORPUSCULAR HEMOGLOBIN 32.4 pg (27.0-31.0); MEAN CORPUSCULAR HGB CONC 32.8 g/dL (33.0-37.0); MEAN PLATELET VOLUME 10.5 fL (7.2-11.7); RED CELL DISTRIBUTION WIDTH 15.8 % (11.5-14.5); WHITE BLOOD COUNT 7.3 K/uL (4.8-10.8)
[2016-11-17 15:34] LABS: POTASSIUM 4.1 mmol/L (3.6-5.2)
[2016-11-17 15:38] LABS: CALCIUM 8.2 mg/dl (8.6-10.4); PHOSPHOROUS 3.8 mg/dL (2.5-4.5)
--- NOTE | 2016-11-18 07:54 | CP.PCM.PN ---
<Arden Tena - Last Filed: 11/18/16 17:03> Subjective - Date & Time of Evaluation Date of Evaluation: 11/18/16 Time of Evaluation: 07:53 - Subjective Subjective: PGY1 Medicine Note for Dr. Giles Patient seen and examined this morning at bedside. Patient states that he is doing well and is currently not in any pain. He states that he feels overall pretty weak. He was able to sit in the chair next to his bed with no problems. He is tolerating his diet. Denies f/c, n/v, d/c, sob, cp, lightedheadness, dizziness, visual changes, or palpitations. Objective - Vital Signs/Intake and Output Vital Signs (last 24 hours): Temp Pulse Resp BP Pulse Ox 98.1 F 81 20 137/80 95 11/18/16 06:30 11/18/16 06:30 11/18/16 06:30 11/18/16 06:30 11/18/16 06:30 Intake and Output: 11/18/16 11/18/16 06:59 18:59 Intake Total 150 Output Total 0 Balance 150 - Medications Medications: Current Medications Acetaminophen (Tylenol 650mg/20.3ml Solution Ud) 650 mg PO Q6 PRN PRN Reason: Temperature Last Admin: 11/02/16 23:46 Dose: 650 mg Epoetin Humphrey (Procrit) 10,000 unit IV MWF [facility] Last Admin: 11/16/16 19:15 Dose: Not Given Escitalopram Oxalate (Lexapro) 5 mg PO DAILY [facility] Last Admin: 11/17/16 10:29 Dose: 5 mg Famotidine (Pepcid) 20 mg PO DAILY [facility] Last Admin: 11/17/16 10:29 Dose: 20 mg Lactic Acid (Lac-Hydrin 12% Lotion (225 G)) 0 gm EXT BID [facility] Last Admin: 11/17/16 18:56 Dose: 1 applic Multivitamins (Hexavitamin) 1 tab PO DAILY [facility] Last Admin: 11/17/16 10:29 Dose: 1 tab Primidone (Mysoline) 50 mg PO HS [facility] Last Admin: 11/17/16 22:26 Dose: 50 mg - Labs Labs: 11/17/16 15:16 11/17/16 15:16 PT 17.7 SECONDS (9.7-12.2) H 07/27/17 06:22 INR 1.6 10/29/16 06:22 APTT 30 SECONDS (21-34) 10/29/16 06:22 - Constitutional Appears: Non-toxic, No Acute Distress - Head Exam Head Exam: ATRAUMATIC, NORMOCEPHALIC - Eye Exam Eye Exam: EOMI, Normal appearance - ENT Exam ENT Exam: Mucous Membranes Moist - Respiratory Exam Respiratory Exam: Clear to Ausculation Bilateral, NORMAL BREATHING PATTERN. absent: Accessory Muscle Use, Respiratory Distress - Cardiovascular Exam Cardiovascular Exam: REGULAR RHYTHM, +S1, +S2 - GI/Abdominal Exam GI & Abdominal Exam: Soft, Normal Bowel Sounds. absent: Distended, Tenderness - Extremities Exam Extremities Exam: absent: Calf Tenderness, Pedal Edema - Neurological Exam Neurological Exam: Alert, Awake, Oriented x3 - Psychiatric Exam Psychiatric exam: Normal Affect, Normal Mood - Skin Skin Exam: Dry, Normal Color, Warm Assessment and Plan - Assessment and Plan (Free Text) Plan: Alcohol withdrawal NO signs of DTs Thiamine 100 mg IV 1x/day Folic Acid 1 mg IV 1x/day Pension Consultant consult to help patient with outpatient AA Psych Started patient on Lexapro 5mg PO daily for Depression and Anixety. Will refer to rehab upon discharge. Hypoxemia/Respiratory Distress Patient was extubated on 11/04/16 Left Pneumothorax/Left Loculated Effusion As per Chest X Ray 11/08/16: moderate loculated left sided pleuaral effusion, moderate to severe venous congestion with confluent consolidative changes at the left mid to lower lung zone, upper lobe granulomatous changes CT Chest 11/09/16 showed improvement in pulmonary edema, persistant Left Pleural Effusion but decreased in size, compressive atelectasis in left lower lobe Chest X Ray 11/10/16 show no change in left hemithorax appearance but decrease in right pleural effusion Chest X Ray 11/11/16 shows no change when compared to 11/10/16, however follow up official reading Chest X Ray 11/12/16 shows interstitial prominence which may reflect infection or edema, probable small pleural effusion, bibasilar atelectasis or infiltrates Chest Tube Pigtail Catheter was removed by ICU Team 11/12/16 Chest X Ray 11/13/16 showed mild bilateral improvement including infiltrate at the mid to inferior left lung zone, pleural effusion, elevated left hemidiaphragm Sepsis Secondary to Pneumonia and Bacteremia Patient received a total of 3 weeks of IV Antibiotics and ID Dr. Bowers has discontinued them Blood Culture 10/21/16 showed S. pneumoniae Blood Culture 10/26/16 showed Coag Neg Staph Repeat Blood Cultures on 10/28/16 and 11/01/16 were negative at 5 days Sputum Culture 11/01/16 was negative NO recent fevers Hypotension Episodes of Hypotension and patient is asymptomatic Seizure disorder Secondary to alcohol withdrawal. NO recent seizure reported Neurology Dr. Pineda Thrombocytopenia Likely Secondary to alcohol abuse. Heparin Abs were also ordered on 10/30/16 and this is NEGATIVE Currently at 104 and this has been relatively stable Psoriasis Renal failure Renal U/S 10/24/16 showed nonobstructing calculus upper/midpole Right Kidney and Abdominal Ascites Hepatitis Panel is negative Patient was receiving HD through Right Femoral Catheter and this was removed on 10/31/16 S/P Right Chest Perm Cath placement by Vascular Surgeon Dr. De La Vega . HD through Right Chest Perm Cath as per Nephrology Dr. Merida/Derian Sevelamer 800mg PO TID No HD today, 24 hr Urine for Creatinine clearance HD is currently on Hold, Cr 1.7 Anemia Likely Secondary to Chronic Alcohol Use and Renal Failure Stool Occult Blood 10/21/16 is negative Stool Occult Blood 11/11/16 was POSITIVE: GI Dr. Cee revaluated patient on and recommended monitoring of the HgB/Hct for now and transfuse if necessary. Dr. Cee's help is greatly appreciated HgB/Hct 8.3/24.7 on 11/14/16 and this has dropped to 7.6/22.9. Therefore repeat HgB/Hct at 1 PM and 9 PM 11/15/16. NOT tachycardiac and is asymptomatic therefore will hold off on PRBC transfusion for now. Also ordered was Repeat Occult Blood. Medicine Team, if the Repeat Stool Occult Blood is positive then resconsult GI Dr. Cee as then I feel EGD vs Colonoscopy would be in order. Hgb/Hct increased from 8.0/24.1 to 8.4/25.5. 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 Patient stated that he did not have these tremors before he came to the hospital He is not on any medications currently that will cause the tremor. NO Propanalol considering the low end of normal Blood Pressure Primidone 50 mg PO 1x/day QHS has been ordered (as patient did complain of trouble sleeping upon ROS today 11/15/16). Prophylactic Measures Bilateral SCDs Protonix 40 mg IV 1x/day Acetaminophen 650 mg PO Q6H PRN Temp/Fever Florastor 250 mg PO 2x/day Albuterol 2.5 mg INH Q6H Novolin Regular ISS with Accuchecks PT/OT Case discussed with Dr. Tisha Her Mallika PGY1 <Juan C Giles - Last Filed: 11/19/16 16:06> Objective - Vital Signs/Intake and Output Vital Signs (last 24 hours): Temp Pulse Resp BP Pulse Ox 97.8 F 78 20 130/76 95 11/19/16 15:32 11/19/16 15:32 11/19/16 15:32 11/19/16 15:32 11/19/16 15:32 Intake and Output: 11/19/16 11/19/16 06:59 18:59 Intake Total 200 Balance 200 - Medications Medications: Current Medications Acetaminophen (Tylenol 650mg/20.3ml Solution Ud) 650 mg PO Q6 PRN PRN Reason: Temperature Last Admin: 11/02/16 23:46 Dose: 650 mg Epoetin Humphrey (Procrit) 10,000 unit IV MWF [facility] Last Admin: 11/16/16 19:15 Dose: Not Given Escitalopram Oxalate (Lexapro) 5 mg PO DAILY [facility] Last Admin: 11/19/16 11:09 Dose: 5 mg Famotidine (Pepcid) 20 mg PO DAILY [facility] Last Admin: 11/19/16 11:09 Dose: 20 mg Multivitamins (Hexavitamin) 1 tab PO DAILY [facility] Last Admin: 11/19/16 11:09 Dose: 1 tab Primidone (Mysoline) 50 mg PO HS [facility] Last Admin: 11/18/16 23:20 Dose: 50 mg - Labs Labs: 11/19/16 07:16 11/19/16 07:16 PT 17.7 SECONDS (9.7-12.2) H 10/29/16 06:22 INR 1.6 10/29/16 06:22 APTT 30 SECONDS (21-34) 10/29/16 06:22 Assessment and Plan (1) Alcohol withdrawal Status: Acute (2) Hypoxemia Status: Acute (3) Pneumonia Status: Acute (4) Respiratory distress Status: Acute (5) Seizure disorder Status: Acute (6) Sepsis Status: Acute (7) Thrombocythemia Status: Chronic (8) Psoriasis Status: Acute (9) Renal failure Status: Acute (10) Spontaneous pneumothorax Status: Acute Attending/Attestation - Attestation I have personally seen and examined this patient.: Yes I have fully participated in the care of the patient.: Yes I have reviewed all pertinent clinical information, including history, physical exam and plan: Yes Notes (Text): 11/19/16 15:53 Patient was seen and examined at bedside with the resident He is feeling better. Breathing is improved No further hemodialysis as per renal. Discussed the plan of care with the resident and agree with assessment and plan documented by the resident.
[2016-11-18] MEDS: Multiple Vitamins Tab PO SCH (11:12)
[2016-11-18] MEDS: Ammonium Lactate 12% Lotion (225 g) EXT SCH ×2 (11:13→18:47)
--- NOTE | 2016-11-18 14:23 | CP.PCM.PN ---
Subjective - Date & Time of Evaluation Date of Evaluation: 11/18/16 Time of Evaluation: 02:30 - Subjective Subjective: Appears comfortable supine Denies sob Objective - Vital Signs/Intake and Output Vital Signs (last 24 hours): Temp Pulse Resp BP Pulse Ox 98.2 F 72 20 122/80 95 11/18/16 07:20 11/18/16 07:20 11/18/16 07:20 11/18/16 07:20 11/18/16 07:20 Intake and Output: 11/18/16 11/18/16 06:59 18:59 Intake Total 150 Output Total 0 Balance 150 - Medications Medications: Current Medications Acetaminophen (Tylenol 650mg/20.3ml Solution Ud) 650 mg PO Q6 PRN PRN Reason: Temperature Last Admin: 11/02/16 23:46 Dose: 650 mg Epoetin Humphrey (Procrit) 10,000 unit IV MWF [facility] Last Admin: 11/16/16 19:15 Dose: Not Given Escitalopram Oxalate (Lexapro) 5 mg PO DAILY [facility] Last Admin: 11/17/16 10:29 Dose: 5 mg Famotidine (Pepcid) 20 mg PO DAILY [facility] Last Admin: 11/18/16 11:13 Dose: 20 mg Lactic Acid (Lac-Hydrin 12% Lotion (225 G)) 0 gm EXT BID [facility] Last Admin: 11/18/16 11:13 Dose: 1 applic Multivitamins (Hexavitamin) 1 tab PO DAILY [facility] Last Admin: 11/18/16 11:12 Dose: 1 tab Primidone (Mysoline) 50 mg PO HS [facility] Last Admin: 11/17/16 22:26 Dose: 50 mg - Labs Labs: 11/17/16 15:16 11/17/16 15:16 PT 17.7 SECONDS (9.7-12.2) H 10/29/16 06:22 INR 1.6 10/29/16 06:22 APTT 30 SECONDS (21-34) 10/29/16 06:22 - Respiratory Exam Additional comments: Lungs clear - Cardiovascular Exam Cardiovascular Exam: REGULAR RHYTHM - Extremities Exam Additional comments: No edema Assessment and Plan - Assessment and Plan (Free Text) Assessment: Resolving RUPALI Anemia Pneumonis Plan: Labs in am 24 hr urine results pending
[2016-11-19 07:31] LABS: HEMATOCRIT 23.5 % (35.0-51.0); MEAN CELL VOLUME 97.6 fL (80.0-94.0); MEAN CORPUSCULAR HEMOGLOBIN 31.9 pg (27.0-31.0); MEAN CORPUSCULAR HGB CONC 32.7 g/dL (33.0-37.0); MEAN PLATELET VOLUME 9.9 fL (7.2-11.7); RED CELL DISTRIBUTION WIDTH 15.6 % (11.5-14.5); WHITE BLOOD COUNT 6.1 K/uL (4.8-10.8)
[2016-11-19 07:42] LABS: CHLORIDE 102 mmol/L (98-107); POTASSIUM 3.7 mmol/L (3.6-5.2); SODIUM 136 mmol/L (132-148)
[2016-11-19 07:45] LABS: BLOOD UREA NITROGEN 32 mg/dL (9-20); CARBON DIOXIDE 24 mmol/L (22-30); GFR AFRICAN-AMERICAN > 60
[2016-11-19 07:46] LABS: CALCIUM 8.3 mg/dl (8.6-10.4); GLUCOSE,RANDOM 84 mg/dL (75-110)
[2016-11-19] MEDS: Ammonium Lactate 12% Lotion (225 g) EXT SCH (09:15)
[2016-11-19] MEDS: Multiple Vitamins Tab PO SCH (11:09)
--- NOTE | 2016-11-19 16:11 | CP.PCM.PN ---
Subjective - Date & Time of Evaluation Date of Evaluation: 11/19/16 Time of Evaluation: 04:00 - Subjective Subjective: Feels better Appears comfortable supine Objective - Vital Signs/Intake and Output Vital Signs (last 24 hours): Temp Pulse Resp BP Pulse Ox 97.8 F 78 20 130/76 95 11/19/16 15:32 11/19/16 15:32 11/19/16 15:32 11/19/16 15:32 11/19/16 15:32 Intake and Output: 11/19/16 11/19/16 06:59 18:59 Intake Total 200 Balance 200 - Medications Medications: Current Medications Acetaminophen (Tylenol 650mg/20.3ml Solution Ud) 650 mg PO Q6 PRN PRN Reason: Temperature Last Admin: 11/02/16 23:46 Dose: 650 mg Epoetin Humphrey (Procrit) 10,000 unit IV MWF [facility] Last Admin: 11/16/16 19:15 Dose: Not Given Escitalopram Oxalate (Lexapro) 5 mg PO DAILY [facility] Last Admin: 11/19/16 11:09 Dose: 5 mg Famotidine (Pepcid) 20 mg PO DAILY [facility] Last Admin: 11/19/16 11:09 Dose: 20 mg Multivitamins (Hexavitamin) 1 tab PO DAILY [facility] Last Admin: 11/19/16 11:09 Dose: 1 tab Primidone (Mysoline) 50 mg PO [facility] Last Admin: 11/18/16 23:20 Dose: 50 mg - Labs Labs: 11/19/16 07:16 11/19/16 07:16 PT 17.7 SECONDS (9.7-12.2) H 10/29/16 06:22 INR 1.6 10/29/16 06:22 APTT 30 SECONDS (21-34) 10/29/16 06:22 - Respiratory Exam Additional comments: Lungs clear - Cardiovascular Exam Cardiovascular Exam: REGULAR RHYTHM - Extremities Exam Additional comments: No edema Assessment and Plan - Assessment and Plan (Free Text) Assessment: RUPALI. Renal function continues to improve Anemis on Epogen Liver cirrhosis, alcoholism Plan: Continue to monitor renal function Anemia Mx per medical team
--- NOTE | 2016-11-19 21:47 | CP.PCM.PN ---
<Arden Tena - Last Filed: 11/19/16 21:43> Subjective - Date & Time of Evaluation Date of Evaluation: 11/19/16 Time of Evaluation: 08:00 - Subjective Subjective: PGY1 Medicine Note for Dr. Giles Patient seen and examined this morning at bedside. Patient states that he is doing well and has no pain. He says he feels overall just weak. He is tolerating his diet. Denies f/c, n/v, d/c, sob, cp, lightedheadness, dizziness, visual changes, or palpitations. Objective - Vital Signs/Intake and Output Vital Signs (last 24 hours): Temp Pulse Resp BP Pulse Ox 97.8 F 78 20 130/76 95 11/19/16 15:32 11/19/16 15:32 11/19/16 15:32 11/19/16 15:32 11/19/16 15:32 - Medications Medications: Current Medications Acetaminophen (Tylenol 650mg/20.3ml Solution Ud) 650 mg PO Q6 PRN PRN Reason: Temperature Last Admin: 11/02/16 23:46 Dose: 650 mg Albuterol/Ipratropium (Duoneb 3 Mg/0.5 Mg (3 Ml) Ud) 3 ml INH RQ2 PRN PRN Reason: Shortness of Breath Epoetin Humphrey (Procrit) 10,000 unit IV MWF [facility] Last Admin: 11/16/16 19:15 Dose: Not Given Escitalopram Oxalate (Lexapro) 5 mg PO DAILY [facility] Last Admin: 11/19/16 11:09 Dose: 5 mg Famotidine (Pepcid) 20 mg PO DAILY [facility] Last Admin: 11/19/16 11:09 Dose: 20 mg Multivitamins (Hexavitamin) 1 tab PO DAILY [facility] Last Admin: 11/19/16 11:09 Dose: 1 tab Primidone (Mysoline) 50 mg PO HS [facility] Last Admin: 11/18/16 23:20 Dose: 50 mg - Labs Labs: 11/19/16 07:16 11/19/16 07:16 PT 17.7 SECONDS (9.7-12.2) H 10/29/16 06:22 INR 1.6 10/29/16 06:22 APTT 30 SECONDS (21-34) 10/29/16 06:22 - Constitutional Appears: Non-toxic, No Acute Distress - Head Exam Head Exam: ATRAUMATIC, NORMOCEPHALIC - Eye Exam Eye Exam: EOMI, Normal appearance - ENT Exam ENT Exam: Mucous Membranes Moist - Respiratory Exam Respiratory Exam: Rales (Left base), NORMAL BREATHING PATTERN. absent: Accessory Muscle Use, Respiratory Distress - Cardiovascular Exam Cardiovascular Exam: REGULAR RHYTHM, +S1, +S2 - GI/Abdominal Exam GI & Abdominal Exam: Soft, Normal Bowel Sounds. absent: Distended, Tenderness - Extremities Exam Extremities Exam: absent: Calf Tenderness, Pedal Edema - Neurological Exam Neurological Exam: Alert, Awake, Oriented x3 - Psychiatric Exam Psychiatric exam: Normal Affect, Normal Mood - Skin Skin Exam: Dry, Normal Color, Warm Assessment and Plan - Assessment and Plan (Free Text) Plan: Alcohol withdrawal NO signs of DTs Thiamine 100 mg IV 1x/day Folic Acid 1 mg IV 1x/day Human Resources Operations Director consult to help patient with outpatient AA Psych Started patient on Lexapro 5mg PO daily for Depression and Anixety. Will refer to rehab upon discharge. Hypoxemia/Respiratory Distress Patient was extubated on 11/04/16 Left Pneumothorax/Left Loculated Effusion As per Chest X Ray 11/08/16: moderate loculated left sided pleuaral effusion, moderate to severe venous congestion with confluent consolidative changes at the left mid to lower lung zone, upper lobe granulomatous changes CT Chest 11/09/16 showed improvement in pulmonary edema, persistant Left Pleural Effusion but decreased in size, compressive atelectasis in left lower lobe Chest X Ray 11/10/16 show no change in left hemithorax appearance but decrease in right pleural effusion Chest X Ray 11/11/16 shows no change when compared to 11/10/16, however follow up official reading Chest X Ray 11/12/16 shows interstitial prominence which may reflect infection or edema, probable small pleural effusion, bibasilar atelectasis or infiltrates Chest Tube Pigtail Catheter was removed by ICU Team 11/12/16 Chest X Ray 11/13/16 showed mild bilateral improvement including infiltrate at the mid to inferior left lung zone, pleural effusion, elevated left hemidiaphragm Sepsis Secondary to Pneumonia and Bacteremia Patient received a total of 3 weeks of IV Antibiotics and ID Dr. Bowers has discontinued them Blood Culture 10/21/16 showed S. pneumoniae Blood Culture 10/26/16 showed Coag Neg Staph Repeat Blood Cultures on 10/28/16 and 11/01/16 were negative at 5 days Sputum Culture 11/01/16 was negative NO recent fevers Hypotension Episodes of Hypotension and patient is asymptomatic Seizure disorder Secondary to alcohol withdrawal. NO recent seizure reported Neurology Dr. Pineda Thrombocytopenia Likely Secondary to alcohol abuse. Heparin Abs were also ordered on 10/30/16 and this is NEGATIVE Currently at 110 and this has been relatively stable Psoriasis Renal failure Renal U/S 10/24/16 showed nonobstructing calculus upper/midpole Right Kidney and Abdominal Ascites Hepatitis Panel is negative Patient was receiving HD through Right Femoral Catheter and this was removed on 10/31/16 S/P Right Chest Perm Cath placement by Vascular Surgeon Dr. De La Vega . HD through Right Chest Perm Cath as per Nephrology Dr. Merida/Derian Sevelamer 800mg PO TID No HD today, 24 hr Urine for Creatinine clearance HD is currently on Hold, Cr 1.4 Anemia Likely Secondary to Chronic Alcohol Use and Renal Failure Stool Occult Blood 10/21/16 is negative Stool Occult Blood 11/11/16 was POSITIVE: GI Dr. Cee revaluated patient on and recommended monitoring of the HgB/Hct for now and transfuse if necessary. Dr. Cee's help is greatly appreciated HgB/Hct 8.3/24.7 on 11/14/16 and this has dropped to 7.6/22.9. Therefore repeat HgB/Hct at 1 PM and 9 PM 11/15/16. NOT tachycardiac and is asymptomatic therefore will hold off on PRBC transfusion for now. Also ordered was Repeat Occult Blood. Medicine Team, if the Repeat Stool Occult Blood is positive then resconsult GI Dr. Cee as then I feel EGD vs Colonoscopy would be in order. Hgb/Hct decreased from 8.4/25.5 to 7.7/23.5. 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 Patient stated that he did not have these tremors before he came to the hospital He is not on any medications currently that will cause the tremor. NO Propanalol considering the low end of normal Blood Pressure Primidone 50 mg PO 1x/day QHS has been ordered (as patient did complain of trouble sleeping upon ROS today 11/15/16). Prophylactic Measures Bilateral SCDs Protonix 40 mg IV 1x/day Acetaminophen 650 mg PO Q6H PRN Temp/Fever Florastor 250 mg PO 2x/day Albuterol 2.5 mg INH Q6H Encourage IS Novolin Regular ISS with Accuchecks PT/OT Case discussed with Dr. Tisha Tena PGY1 <Juan C Giles - Last Filed: 11/20/16 17:52> Objective - Vital Signs/Intake and Output Vital Signs (last 24 hours): Temp Pulse Resp BP Pulse Ox 98.4 F 90 20 133/77 94 L 11/20/16 15:00 11/20/16 15:00 11/20/16 15:00 11/20/16 15:00 11/20/16 15:00 Intake and Output: 11/20/16 11/20/16 06:59 18:59 Intake Total 200 Balance 200 - Medications Medications: Current Medications Acetaminophen (Tylenol 650mg/20.3ml Solution Ud) 650 mg PO Q6 PRN PRN Reason: Temperature Last Admin: 11/02/16 23:46 Dose: 650 mg Albuterol/Ipratropium (Duoneb 3 Mg/0.5 Mg (3 Ml) Ud) 3 ml INH RQ2 PRN PRN Reason: Shortness of Breath Epoetin Humphrey (Procrit) 10,000 unit IV MWF [facility] Last Admin: 11/16/16 19:15 Dose: Not Given Escitalopram Oxalate (Lexapro) 5 mg PO DAILY [facility] Last Admin: 11/20/16 10:18 Dose: 5 mg Famotidine (Pepcid) 20 mg PO DAILY [facility] Last Admin: 11/20/16 10:17 Dose: 20 mg Multivitamins (Hexavitamin) 1 tab PO DAILY [facility] Last Admin: 11/20/16 10:18 Dose: 1 tab Primidone (Mysoline) 50 mg PO HS [facility] Last Admin: 11/19/16 22:16 Dose: 50 mg - Labs Labs: 11/19/16 07:16 11/19/16 07:16 PT 17.7 SECONDS (9.7-12.2) H 10/29/16 06:22 INR 1.6 10/29/16 06:22 APTT 30 SECONDS (21-34) 10/29/16 06:22 Assessment and Plan (1) Alcohol withdrawal Status: Acute (2) Hypoxemia Status: Acute (3) Pneumonia Status: Acute (4) Respiratory distress Status: Acute (5) Seizure disorder Status: Acute (6) Sepsis Status: Acute (7) Thrombocythemia Status: Chronic (8) Psoriasis Status: Acute (9) Renal failure Status: Acute (10) Spontaneous pneumothorax Status: Acute Attending/Attestation - Attestation I have personally seen and examined this patient.: Yes I have fully participated in the care of the patient.: Yes I have reviewed all pertinent clinical information, including history, physical exam and plan: Yes Notes (Text): 11/20/16 17:52 Patient was seen and examined at bedside During the workup is still in progress renal workup is in progress No further hemodialysis planned as per renal. Discussed the plan of care with the resident and agree with the assessment and documented.
[2016-11-20] MEDS: Multiple Vitamins Tab PO SCH (10:18)
--- NOTE | 2016-11-20 10:54 | CP.PCM.PN ---
Subjective - Date & Time of Evaluation Date of Evaluation: 11/20/16 Time of Evaluation: 10:30 - Subjective Subjective: No complaints feels better No sob Objective - Vital Signs/Intake and Output Vital Signs (last 24 hours): Temp Pulse Resp BP Pulse Ox 99 F 86 20 132/77 95 11/19/16 23:00 11/19/16 23:00 11/19/16 23:00 11/19/16 23:00 11/19/16 23:00 Intake and Output: 11/20/16 11/20/16 06:59 18:59 Intake Total 200 Balance 200 - Medications Medications: Current Medications Acetaminophen (Tylenol 650mg/20.3ml Solution Ud) 650 mg PO Q6 PRN PRN Reason: Temperature Last Admin: 11/02/16 23:46 Dose: 650 mg Albuterol/Ipratropium (Duoneb 3 Mg/0.5 Mg (3 Ml) Ud) 3 ml INH RQ2 PRN PRN Reason: Shortness of Breath Epoetin Humphrey (Procrit) 10,000 unit IV MWF [facility] Last Admin: 11/16/16 19:15 Dose: Not Given Escitalopram Oxalate (Lexapro) 5 mg PO DAILY [facility] Last Admin: 11/20/16 10:18 Dose: 5 mg Famotidine (Pepcid) 20 mg PO DAILY [facility] Last Admin: 11/20/16 10:17 Dose: 20 mg Multivitamins (Hexavitamin) 1 tab PO DAILY [facility] Last Admin: 11/20/16 10:18 Dose: 1 tab Primidone (Mysoline) 50 mg PO HS [facility] Last Admin: 11/19/16 22:16 Dose: 50 mg - Labs Labs: 11/19/16 07:16 11/19/16 07:16 PT 17.7 SECONDS (9.7-12.2) H 10/29/16 06:22 INR 1.6 10/29/16 06:22 APTT 30 SECONDS (21-34) 10/29/16 06:22 - Respiratory Exam Additional comments: Lungs clear - Cardiovascular Exam Cardiovascular Exam: REGULAR RHYTHM - Extremities Exam Additional comments: No edema Assessment and Plan - Assessment and Plan (Free Text) Assessment: RUPALI resolved Liver cirrhosis Reslving pneumonia Anemia Plan: Continue to monitor Hb remains low.Still on Wpogen Iron profile
[2016-11-20 14:29] LABS: IRON 12 ug/dL (49-181)
--- NOTE | 2016-11-20 21:00 | CP.PCM.PN ---
<Arden Tena - Last Filed: 11/20/16 20:56> Subjective - Date & Time of Evaluation Date of Evaluation: 11/20/16 Time of Evaluation: 06:00 - Subjective Subjective: PGY1 Medicine Note for Dr. Giles Patient seen and examined this morning at bedside. Patient states that he is doing well and has no pain. He says he still feels overall just weak. He is tolerating his diet. Denies f/c, n/v, d/c, sob, cp, lightedheadness, dizziness, visual changes, or palpitations. Objective - Vital Signs/Intake and Output Vital Signs (last 24 hours): Temp Pulse Resp BP Pulse Ox 98.4 F 90 20 133/77 94 L 11/20/16 15:00 11/20/16 15:00 11/20/16 15:00 11/20/16 15:00 11/20/16 15:00 - Medications Medications: Current Medications Acetaminophen (Tylenol 650mg/20.3ml Solution Ud) 650 mg PO Q6 PRN PRN Reason: Temperature Last Admin: 11/02/16 23:46 Dose: 650 mg Albuterol/Ipratropium (Duoneb 3 Mg/0.5 Mg (3 Ml) Ud) 3 ml INH RQ2 PRN PRN Reason: Shortness of Breath Epoetin Humphrey (Procrit) 10,000 unit IV MWF [facility] Last Admin: 11/16/16 19:15 Dose: Not Given Escitalopram Oxalate (Lexapro) 5 mg PO DAILY [facility] Last Admin: 11/20/16 10:18 Dose: 5 mg Famotidine (Pepcid) 20 mg PO DAILY [facility] Last Admin: 11/20/16 10:17 Dose: 20 mg Multivitamins (Hexavitamin) 1 tab PO DAILY [facility] Last Admin: 11/20/16 10:18 Dose: 1 tab Primidone (Mysoline) 50 mg PO HS [facility] Last Admin: 11/19/16 22:16 Dose: 50 mg - Labs Labs: 11/19/16 07:16 11/19/16 07:16 PT 17.7 SECONDS (9.7-12.2) H 10/29/16 06:22 INR 1.6 10/29/16 06:22 APTT 30 SECONDS (21-34) 10/29/16 06:22 - Constitutional Appears: Non-toxic, No Acute Distress - Head Exam Head Exam: ATRAUMATIC, NORMOCEPHALIC - Eye Exam Eye Exam: EOMI, Normal appearance - ENT Exam ENT Exam: Mucous Membranes Moist - Respiratory Exam Respiratory Exam: Clear to Ausculation Bilateral, NORMAL BREATHING PATTERN. absent: Accessory Muscle Use, Respiratory Distress - Cardiovascular Exam Cardiovascular Exam: REGULAR RHYTHM, +S1, +S2 - GI/Abdominal Exam GI & Abdominal Exam: Soft, Normal Bowel Sounds. absent: Distended, Firm, Tenderness - Extremities Exam Extremities Exam: absent: Calf Tenderness, Pedal Edema - Neurological Exam Neurological Exam: Alert, Awake, Normal Gait, Oriented x3 - Psychiatric Exam Psychiatric exam: Normal Affect, Normal Mood - Skin Skin Exam: Dry, Normal Color, Warm Assessment and Plan - Assessment and Plan (Free Text) Plan: Alcohol withdrawal NO signs of DTs Thiamine 100 mg IV 1x/day Folic Acid 1 mg IV 1x/day Application Design Engineer consult to help patient with outpatient AA Psych Started patient on Lexapro 5mg PO daily for Depression and Anixety. Will refer to rehab upon discharge. Hypoxemia/Respiratory Distress Patient was extubated on 11/04/16 Left Pneumothorax/Left Loculated Effusion As per Chest X Ray 11/08/16: moderate loculated left sided pleuaral effusion, moderate to severe venous congestion with confluent consolidative changes at the left mid to lower lung zone, upper lobe granulomatous changes CT Chest 11/09/16 showed improvement in pulmonary edema, persistant Left Pleural Effusion but decreased in size, compressive atelectasis in left lower lobe Chest X Ray 11/10/16 show no change in left hemithorax appearance but decrease in right pleural effusion Chest X Ray 11/11/16 shows no change when compared to 11/10/16, however follow up official reading Chest X Ray 11/12/16 shows interstitial prominence which may reflect infection or edema, probable small pleural effusion, bibasilar atelectasis or infiltrates Chest Tube Pigtail Catheter was removed by ICU Team 11/12/16 Chest X Ray 11/13/16 showed mild bilateral improvement including infiltrate at the mid to inferior left lung zone, pleural effusion, elevated left hemidiaphragm Sepsis Secondary to Pneumonia and Bacteremia Patient received a total of 3 weeks of IV Antibiotics and ID Dr. Bowers has discontinued them Blood Culture 10/21/16 showed S. pneumoniae Blood Culture 10/26/16 showed Coag Neg Staph Repeat Blood Cultures on 10/28/16 and 11/01/16 were negative at 5 days Sputum Culture 11/01/16 was negative NO recent fevers Hypotension Episodes of Hypotension and patient is asymptomatic Seizure disorder Secondary to alcohol withdrawal. NO recent seizure reported Neurology Dr. Pineda Thrombocytopenia Likely Secondary to alcohol abuse. Heparin Abs were also ordered on 10/30/16 and this is NEGATIVE Psoriasis Renal failure Renal U/S 10/24/16 showed nonobstructing calculus upper/midpole Right Kidney and Abdominal Ascites Hepatitis Panel is negative Patient was receiving HD through Right Femoral Catheter and this was removed on 10/31/16 S/P Right Chest Perm Cath placement by Vascular Surgeon Dr. De La Vega . HD through Right Chest Perm Cath as per Nephrology Dr. Merida/Derian Sevelamer 800mg PO TID No HD today, 24 hr Urine for Creatinine clearance HD is currently on Hold, Cr 1.4 (11/19) Anemia Likely Secondary to Chronic Alcohol Use and Renal Failure Stool Occult Blood 10/21/16 is negative Stool Occult Blood 11/11/16 was POSITIVE: GI Dr. Cee revaluated patient on and recommended monitoring of the HgB/Hct for now and transfuse if necessary. Dr. Cee's help is greatly appreciated HgB/Hct 8.3/24.7 on 11/14/16 and this has dropped to 7.6/22.9. Therefore repeat HgB/Hct at 1 PM and 9 PM 11/15/16. NOT tachycardiac and is asymptomatic therefore will hold off on PRBC transfusion for now. Also ordered was Repeat Occult Blood. Medicine Team, if the Repeat Stool Occult Blood is positive then resconsult GI Dr. Cee as then I feel EGD vs Colonoscopy would be in order. 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 Patient stated that he did not have these tremors before he came to the hospital He is not on any medications currently that will cause the tremor. NO Propanalol considering the low end of normal Blood Pressure Primidone 50 mg PO 1x/day QHS has been ordered (as patient did complain of trouble sleeping upon ROS today 11/15/16). Prophylactic Measures Bilateral SCDs Protonix 40 mg IV 1x/day Acetaminophen 650 mg PO Q6H PRN Temp/Fever Florastor 250 mg PO 2x/day Albuterol 2.5 mg INH Q6H Encourage IS Novolin Regular ISS with Accsolitarioecks PT/OT Case discussed with Dr. Tisha Her Mallika PGY1 <Juan C Giles - Last Filed: 11/21/16 10:02> Objective - Vital Signs/Intake and Output Vital Signs (last 24 hours): Temp Pulse Resp BP Pulse Ox 97.4 F L 68 20 100/62 96 11/21/16 09:36 11/21/16 09:36 11/21/16 09:36 11/21/16 09:36 11/21/16 09:36 Intake and Output: 11/21/16 11/21/16 06:59 18:59 Intake Total 240 Output Total 600 Balance -360 - Medications Medications: Current Medications Acetaminophen (Tylenol 650mg/20.3ml Solution Ud) 650 mg PO Q6 PRN PRN Reason: Temperature Last Admin: 11/02/16 23:46 Dose: 650 mg Albuterol/Ipratropium (Duoneb 3 Mg/0.5 Mg (3 Ml) Ud) 3 ml INH RQ2 PRN PRN Reason: Shortness of Breath Epoetin Humphrey (Procrit) 10,000 unit IV MWF [facility] Last Admin: 11/16/16 19:15 Dose: Not Given Escitalopram Oxalate (Lexapro) 5 mg PO DAILY [facility] Last Admin: 11/20/16 10:18 Dose: 5 mg Famotidine (Pepcid) 20 mg PO DAILY [facility] Last Admin: 11/21/16 09:37 Dose: 20 mg Multivitamins (Hexavitamin) 1 tab PO DAILY [facility] Last Admin: 11/21/16 09:37 Dose: 1 tab Primidone (Mysoline) 50 mg PO HS [facility] Last Admin: 11/20/16 22:49 Dose: 50 mg - Labs Labs: 11/21/16 06:31 11/21/16 06:31 PT 17.7 SECONDS (9.7-12.2) H 10/29/16 06:22 INR 1.6 10/29/16 06:22 APTT 30 SECONDS (21-34) 10/29/16 06:22 Assessment and Plan (1) Alcohol withdrawal Status: Acute (2) Hypoxemia Status: Acute (3) Pneumonia Status: Acute (4) Respiratory distress Status: Acute (5) Seizure disorder Status: Acute (6) Sepsis Status: Acute (7) Thrombocythemia Status: Chronic (8) Psoriasis Status: Acute (9) Renal failure Status: Acute (10) Spontaneous pneumothorax Status: Acute Attending/Attestation - Attestation I have personally seen and examined this patient.: Yes I have fully participated in the care of the patient.: Yes I have reviewed all pertinent clinical information, including history, physical exam and plan: Yes Notes (Text): 11/21/16 10:01 Patient was seen and examined at bedside with the resident Patient is off dialysis now. Continue physical therapy daily Discussed the plan of care with the resident agree with the assessment plan documented above.
[2016-11-21 06:41] LABS: HEMATOCRIT 23.5 % (35.0-51.0); MEAN CELL VOLUME 96.8 fL (80.0-94.0); MEAN CORPUSCULAR HEMOGLOBIN 31.9 pg (27.0-31.0); MEAN CORPUSCULAR HGB CONC 32.9 g/dL (33.0-37.0); MEAN PLATELET VOLUME 9.4 fL (7.2-11.7); RED CELL DISTRIBUTION WIDTH 15.5 % (11.5-14.5); WHITE BLOOD COUNT 6.2 K/uL (4.8-10.8)
[2016-11-21 06:53] LABS: BLOOD UREA NITROGEN 26 mg/dL (9-20); CALCIUM 8.4 mg/dl (8.6-10.4); CARBON DIOXIDE 23 mmol/L (22-30); CHLORIDE 104 mmol/L (98-107); GFR AFRICAN-AMERICAN > 60; GLUCOSE,RANDOM 82 mg/dL (75-110); POTASSIUM 3.6 mmol/L (3.6-5.2); SODIUM 136 mmol/L (132-148)
--- NOTE | 2016-11-21 08:30 | CP.PCM.PN ---
<Juan C Giles - Last Filed: 11/21/16 16:54> Objective - Vital Signs/Intake and Output Vital Signs (last 24 hours): Temp Pulse Resp BP Pulse Ox 98.8 F 77 20 141/82 99 11/21/16 16:15 11/21/16 16:15 11/21/16 16:15 11/21/16 16:15 11/21/16 16:15 Intake and Output: 11/21/16 11/21/16 06:59 18:59 Intake Total 240 Output Total 600 Balance -360 - Medications Medications: Current Medications Acetaminophen (Tylenol 650mg/20.3ml Solution Ud) 650 mg PO Q6 PRN PRN Reason: Temperature Last Admin: 11/02/16 23:46 Dose: 650 mg Albuterol/Ipratropium (Duoneb 3 Mg/0.5 Mg (3 Ml) Ud) 3 ml INH RQ2 PRN PRN Reason: Shortness of Breath Epoetin Humphrey (Procrit) 10,000 unit IV MWF [facility] Last Admin: 11/16/16 19:15 Dose: Not Given Escitalopram Oxalate (Lexapro) 5 mg PO DAILY [facility] Last Admin: 11/21/16 12:56 Dose: 5 mg Famotidine (Pepcid) 20 mg PO DAILY [facility] Last Admin: 11/21/16 09:37 Dose: 20 mg Ferric Sodium Gluconate Complex (Ferrlecit) 125 mg IVPB DAILY [facility] Stop: 11/26/16 11:01 Last Admin: 11/21/16 11:20 Dose: 125 mg Multivitamins (Hexavitamin) 1 tab PO DAILY [facility] Last Admin: 11/21/16 09:37 Dose: 1 tab Primidone (Mysoline) 50 mg PO [facility] Last Admin: 11/20/16 22:49 Dose: 50 mg - Labs Labs: 11/21/16 06:31 11/21/16 06:31 PT 17.7 SECONDS (9.7-12.2) H 10/29/16 06:22 INR 1.6 10/29/16 06:22 APTT 30 SECONDS (21-34) 10/29/16 06:22 Assessment and Plan (1) Alcohol withdrawal Status: Acute (2) Hypoxemia Status: Acute (3) Pneumonia Status: Acute (4) Respiratory distress Status: Acute (5) Seizure disorder Status: Acute (6) Sepsis Status: Acute (7) Thrombocythemia Status: Chronic (8) Psoriasis Status: Acute (9) Renal failure Status: Acute (10) Spontaneous pneumothorax Status: Acute Attending/Attestation - Attestation I have personally seen and examined this patient.: Yes I have fully participated in the care of the patient.: Yes I have reviewed all pertinent clinical information, including history, physical exam and plan: Yes Notes (Text): 11/21/16 16:54 Patient was seen and examined at bedside Denies any pain. Patient still complains of generalized weakness. Continue physical therapy daily Patient has a hemodialysis catheter. We will remove the catheter when cleared by nephrology I discussed the plan of care with the resident and agree with the assessment and plan documented by the resident. <Abdi Reid - Last Filed: 11/21/16 20:04> Subjective - Date & Time of Evaluation Date of Evaluation: 11/21/16 Time of Evaluation: 09:00 - Subjective Subjective: Dr. Giles note: Patient is seen in room. He is says he came to the hospital because he was vomiting blood. He says the symptoms started about a month ago. He also said his last drink was a month ago as well. He does complain of some nausea and anxiety. Objective - Vital Signs/Intake and Output Vital Signs (last 24 hours): Temp Pulse Resp BP Pulse Ox 98.7 F 88 20 149/85 94 L 11/20/16 23:11 11/20/16 23:11 11/20/16 23:11 11/20/16 23:11 11/20/16 23:11 - Medications Medications: Current Medications Acetaminophen (Tylenol 650mg/20.3ml Solution Ud) 650 mg PO Q6 PRN PRN Reason: Temperature Last Admin: 11/02/16 23:46 Dose: 650 mg Albuterol/Ipratropium (Duoneb 3 Mg/0.5 Mg (3 Ml) Ud) 3 ml INH RQ2 PRN PRN Reason: Shortness of Breath Epoetin Humphrey (Procrit) 10,000 unit IV MWF [facility] Last Admin: 11/16/16 19:15 Dose: Not Given Escitalopram Oxalate (Lexapro) 5 mg PO DAILY [facility] Last Admin: 11/20/16 10:18 Dose: 5 mg Famotidine (Pepcid) 20 mg PO DAILY [facility] Last Admin: 11/20/16 10:17 Dose: 20 mg Multivitamins (Hexavitamin) 1 tab PO DAILY [facility] Last Admin: 11/20/16 10:18 Dose: 1 tab Primidone (Mysoline) 50 mg PO HS [facility] Last Admin: 11/20/16 22:49 Dose: 50 mg - Labs Labs: 11/21/16 06:31 11/21/16 06:31 PT 17.7 SECONDS (9.7-12.2) H 10/29/16 06:22 INR 1.6 10/29/16 06:22 APTT 30 SECONDS (21-34) 10/29/16 06:22 - Constitutional Appears: Non-toxic, No Acute Distress - Eye Exam Eye Exam: Normal appearance. absent: Nystagmus Pupil Exam: NORMAL ACCOMODATION Additional comments: pallor - ENT Exam ENT Exam: Normal Exam - Respiratory Exam Respiratory Exam: Clear to Ausculation Bilateral. absent: Rales, Rhonchi, Wheezes - Cardiovascular Exam Cardiovascular Exam: REGULAR RHYTHM, RRR, +S1, +S2. absent: Gallop, Rubs - GI/Abdominal Exam GI & Abdominal Exam: Soft, Normal Bowel Sounds. absent: Tenderness, Rebound - Extremities Exam Extremities Exam: Normal Inspection. absent: Pedal Edema - Back Exam Back Exam: NORMAL INSPECTION - Neurological Exam Neurological Exam: Alert Additional comments: tremulous - Psychiatric Exam Psychiatric exam: Normal Affect, Normal Mood - Skin Skin Exam: Pallor, Warm Assessment and Plan - Assessment and Plan (Free Text) Assessment: Alcohol withdrawal /19: Tremulous with some problems with balance, continue thiamine and folic acid, physical therapy as well, most likely not to be able to discharge to [facility] because patient is [facility]. 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 Will refer to rehab upon discharge. Hypoxemia/Respiratory Distress Patient was extubated on 11/04/16 Left Pneumothorax/Left Loculated Effusion As per Chest X Ray 11/08/16: moderate loculated left sided pleuaral effusion, moderate to severe venous congestion with confluent consolidative changes at the left mid to lower lung zone, upper lobe granulomatous changes CT Chest 11/09/16 showed improvement in pulmonary edema, persistant Left Pleural Effusion but decreased in size, compressive atelectasis in left lower lobe Chest X Ray 11/10/16 show no change in left hemithorax appearance but decrease in right pleural effusion Chest X Ray 11/11/16 shows no change when compared to 11/10/16, however follow up official reading Chest X Ray 11/12/16 shows interstitial prominence which may reflect infection or edema, probable small pleural effusion, bibasilar atelectasis or infiltrates Chest Tube Pigtail Catheter was removed by ICU Team 11/12/16 Chest X Ray 11/13/16 showed mild bilateral improvement including infiltrate at the mid to inferior left lung zone, pleural effusion, elevated left hemidiaphragm Sepsis Secondary to Pneumonia and Bacteremia Patient received a total of 3 weeks of IV Antibiotics and ID Dr. Bowers has discontinued them Blood Culture 10/21/16 showed S. pneumoniae Blood Culture 10/26/16 showed Coag Neg Staph Repeat Blood Cultures on 10/28/16 and 11/01/16 were negative at 5 days Sputum Culture 11/01/16 was negative NO recent fevers Hypotension Episodes of Hypotension and patient is asymptomatic Seizure disorder 11/21: No active seizures Secondary to alcohol withdrawal. NO recent seizure reported Neurology Dr. Pineda Thrombocytopenia Likely Secondary to alcohol abuse. Heparin Abs were also ordered on 10/30/16 and this is NEGATIVE Psoriasis Renal failure Renal U/S 10/24/16 showed nonobstructing calculus upper/midpole Right Kidney and Abdominal Ascites Hepatitis Panel is negative Patient was receiving HD through Right Femoral Catheter and this was removed on 10/31/16 S/P Right Chest Perm Cath placement by Vascular Surgeon Dr. De La Vega . HD through Right Chest Perm Cath as per Nephrology Dr. Merida/Derian Sevelamer 800mg PO TID No HD today, 24 hr Urine for Creatinine clearance HD is currently on Hold, Cr 1.4 (11/19) Anemia Likely Secondary to Chronic Alcohol Use and Renal Failure-Iron deficient 11/21: Started IV Ferrcit today, his iron is very low, follow up B12 and folate studies. Stool Occult Blood 10/21/16 is negative Stool Occult Blood 11/11/16 was POSITIVE: GI Dr. Cee revaluated patient on and recommended monitoring of the HgB/Hct for now and transfuse if necessary. Dr. Cee's help is greatly appreciated HgB/Hct 8.3/24.7 on 11/14/16 and this has dropped to 7.6/22.9. Therefore repeat HgB/Hct at 1 PM and 9 PM 11/15/16. NOT tachycardiac and is asymptomatic therefore will hold off on PRBC transfusion for now. Also ordered was Repeat Occult Blood. Medicine Team, if the Repeat Stool Occult Blood is positive then resconsult GI Dr. Cee as then I feel EGD vs Colonoscopy would be in order. 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 Patient stated that he did not have these tremors before he came to the hospital He is not on any medications currently that will cause the tremor. NO Propanalol considering the low end of normal Blood Pressure Primidone 50 mg PO 1x/day QHS has been ordered (as patient did complain of trouble sleeping upon ROS today 11/15/16). Prophylactic Measures Bilateral SCDs Protonix 40 mg IV 1x/day Acetaminophen 650 mg PO Q6H PRN Temp/Fever Florastor 250 mg PO 2x/day Albuterol 2.5 mg INH Q6H Encourage IS Novolin Regular ISS with Accuchecks PT/OT Case discussed with Dr. Giles
[2016-11-21] MEDS: Multiple Vitamins Tab PO SCH (09:37)
[2016-11-21] MEDS: Ferric Sodium Gluconat Complex 62.5 mg/5 ml Vial IVPB SCH (11:20)
[2016-11-22] MEDS: Albuterol-Ipratrop 3 mg / 0.5 (3 ml) UD INH PRN ×2 (07:40→19:23)
[2016-11-22 08:04] LABS: BASO % 0.6 % (0.0-2.0); EOS # 0.8 K/uL (0.0-0.7); HEMATOCRIT 23.1 % (35.0-51.0); LYMPH # 0.9 K/uL (1.0-4.3); LYMPH % 14.7 % (20.0-40.0); MEAN CELL VOLUME 96.5 fL (80.0-94.0); MEAN CORPUSCULAR HEMOGLOBIN 32.1 pg (27.0-31.0); MEAN CORPUSCULAR HGB CONC 33.2 g/dL (33.0-37.0); MEAN PLATELET VOLUME 9.6 fL (7.2-11.7); MONO # 0.5 K/uL (0.0-0.8); MONO % 8.9 % (0.0-10.0); NRBC % 0.1 % (0.0-2.0); RED CELL DISTRIBUTION WIDTH 15.2 % (11.5-14.5); WHITE BLOOD COUNT 6.1 K/uL (4.8-10.8)
[2016-11-22 08:19] LABS: CHLORIDE 105 mmol/L (98-107); POTASSIUM 3.6 mmol/L (3.6-5.2); SODIUM 137 mmol/L (132-148)
[2016-11-22 08:21] LABS: ALB/GLOB RATIO 0.6 (1.0-2.1); AST/SGOT 32 U/L (17-59); BILIRUBIN,TOTAL 1.2 mg/dL (0.2-1.3); CARBON DIOXIDE 22 mmol/L (22-30); GFR AFRICAN-AMERICAN > 60; TOTAL PROTEIN 6.8 g/dL (6.3-8.3)
[2016-11-22 08:22] LABS: ALKALINE PHOSPHATASE 154 U/L (38-126); ALT/SGPT 36 U/L (21-72); BLOOD UREA NITROGEN 21 mg/dL (9-20); CALCIUM 8.2 mg/dl (8.6-10.4); GLUCOSE,RANDOM 80 mg/dL (75-110); MAGNESIUM 1.3 mg/dL (1.6-2.3); PHOSPHOROUS 4.3 mg/dL (2.5-4.5)
[2016-11-22] MEDS: Ferric Sodium Gluconat Complex 62.5 mg/5 ml Vial IVPB SCH (09:33)
[2016-11-22] MEDS: Multiple Vitamins Tab PO SCH (09:34)
[2016-11-22] MEDS: Magnesium Sulfate 1 gm in D5W 1 GM/100 ML BAG IVPB SCH ×3 (10:07→11:18)
--- NOTE | 2016-11-22 13:53 | CP.PCM.PN ---
Subjective - Date & Time of Evaluation Date of Evaluation: 11/22/16 Time of Evaluation: 10:00 - Subjective Subjective: Npcomplaints Comfortable in bed Objective - Vital Signs/Intake and Output Vital Signs (last 24 hours): Temp Pulse Resp BP Pulse Ox 97.9 F 80 20 127/80 100 11/22/16 08:26 11/22/16 08:26 11/22/16 08:26 11/22/16 08:26 11/22/16 08:26 Intake and Output: 11/22/16 11/22/16 06:59 18:59 Intake Total 240 Output Total 600 Balance -360 - Medications Medications: Current Medications Acetaminophen (Tylenol 650mg/20.3ml Solution Ud) 650 mg PO Q6 PRN PRN Reason: Temperature Last Admin: 11/02/16 23:46 Dose: 650 mg Albuterol/Ipratropium (Duoneb 3 Mg/0.5 Mg (3 Ml) Ud) 3 ml INH RQ2 PRN PRN Reason: Shortness of Breath Last Admin: 11/22/16 07:40 Dose: 3 ml Epoetin Humphrey (Procrit) 10,000 unit IV MWF [facility] Last Admin: 11/16/16 19:15 Dose: Not Given Escitalopram Oxalate (Lexapro) 5 mg PO DAILY [facility] Last Admin: 11/22/16 09:34 Dose: 5 mg Famotidine (Pepcid) 20 mg PO DAILY [facility] Last Admin: 11/22/16 09:34 Dose: 20 mg Ferric Sodium Gluconate Complex (Ferrlecit) 125 mg IVPB DAILY [facility]S [facility] Stop: 11/26/16 11:01 Last Admin: 11/22/16 09:33 Dose: 125 mg Multivitamins (Hexavitamin) 1 tab PO DAILY [facility] Last Admin: 11/22/16 09:34 Dose: 1 tab Primidone (Mysoline) 50 mg PO HS [facility]S [facility] Last Admin: 11/21/16 21:45 Dose: 50 mg - Labs Labs: 11/22/16 07:35 11/22/16 07:35 PT 17.7 SECONDS (9.7-12.2) H 10/29/16 06:22 INR 1.6 10/29/16 06:22 APTT 30 SECONDS (21-34) 10/29/16 06:22 - Respiratory Exam Additional comments: Lungs clear - Cardiovascular Exam Cardiovascular Exam: REGULAR RHYTHM - Extremities Exam Additional comments: No edema Assessment and Plan - Assessment and Plan (Free Text) Assessment: RUPALI resolves Pneumonia Acohol withdrawal Plan: Renal function is stable. Will see Pt as needed
--- NOTE | 2016-11-22 15:36 | CP.PCM.PN ---
<Abdi Reid Marla - Last Filed: 11/22/16 16:43> Subjective - Date & Time of Evaluation Date of Evaluation: 11/15/16 Time of Evaluation: 09:20 - Subjective Subjective: Dr. Giles service: Patient seen in room. He say he is feeling better but that he still has diffaculty with balance when walking. He is also experiencing some anxiety but denies nausea and vomiting. Objective - Vital Signs/Intake and Output Vital Signs (last 24 hours): Temp Pulse Resp BP Pulse Ox 97.9 F 80 20 127/80 100 11/22/16 08:26 11/22/16 08:26 11/22/16 08:26 11/22/16 08:26 11/22/16 08:26 Intake and Output: 11/22/16 11/22/16 06:59 18:59 Intake Total 240 900 Output Total 600 Balance -360 900 - Medications Medications: Current Medications Acetaminophen (Tylenol 650mg/20.3ml Solution Ud) 650 mg PO Q6 PRN PRN Reason: Temperature Last Admin: 11/02/16 23:46 Dose: 650 mg Albuterol/Ipratropium (Duoneb 3 Mg/0.5 Mg (3 Ml) Ud) 3 ml INH RQ2 PRN PRN Reason: Shortness of Breath Last Admin: 11/22/16 07:40 Dose: 3 ml Epoetin Humphrey (Procrit) 10,000 unit IV MWF [facility] Last Admin: 11/16/16 19:15 Dose: Not Given Escitalopram Oxalate (Lexapro) 5 mg PO DAILY [facility] Last Admin: 11/22/16 09:34 Dose: 5 mg Famotidine (Pepcid) 20 mg PO DAILY [facility] Last Admin: 11/22/16 09:34 Dose: 20 mg Ferric Sodium Gluconate Complex (Ferrlecit) 125 mg IVPB DAILY [facility] Stop: 11/26/16 11:01 Last Admin: 11/22/16 09:33 Dose: 125 mg Multivitamins (Hexavitamin) 1 tab PO DAILY [facility] Last Admin: 11/22/16 09:34 Dose: 1 tab Primidone (Mysoline) 50 mg PO HS [facility] Last Admin: 11/21/16 21:45 Dose: 50 mg - Labs Labs: 11/22/16 07:35 11/22/16 07:35 PT 17.7 SECONDS (9.7-12.2) H 10/29/16 06:22 INR 1.6 10/29/16 06:22 APTT 30 SECONDS (21-34) 10/29/16 06:22 - Constitutional Appears: Non-toxic, No Acute Distress - Eye Exam Eye Exam: Normal appearance. absent: Scleral icterus Pupil Exam: NORMAL ACCOMODATION - ENT Exam ENT Exam: Normal Exam - Respiratory Exam Respiratory Exam: Clear to Ausculation Bilateral. absent: Rales, Rhonchi, Wheezes - Cardiovascular Exam Cardiovascular Exam: REGULAR RHYTHM, RRR, +S1, +S2. absent: Gallop, Rubs - GI/Abdominal Exam GI & Abdominal Exam: Soft, Normal Bowel Sounds. absent: Tenderness - Extremities Exam Extremities Exam: Normal Inspection. absent: Pedal Edema - Neurological Exam Neurological Exam: Alert - Psychiatric Exam Psychiatric exam: Normal Affect, Normal Mood - Skin Skin Exam: Normal Color Assessment and Plan - Assessment and Plan (Free Text) Assessment: 11/22: Still tremulous, continue thiamine, folic acid and thiamine. continue Lexapro 5mg for depression and anxiety 11/21: Tremulous with some problems with balance, continue thiamine and folic acid, physical therapy as well, most likely not to be able to discharge to [facility] because patient is [facility] care. 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 Will refer to rehab upon discharge. Hypoxemia/Respiratory Distress Patient was extubated on 11/04/16 Left Pneumothorax/Left Loculated Effusion As per Chest X Ray 11/08/16: moderate loculated left sided pleuaral effusion, moderate to severe venous congestion with confluent consolidative changes at the left mid to lower lung zone, upper lobe granulomatous changes CT Chest 11/09/16 showed improvement in pulmonary edema, persistant Left Pleural Effusion but decreased in size, compressive atelectasis in left lower lobe Chest X Ray 11/10/16 show no change in left hemithorax appearance but decrease in right pleural effusion Chest X Ray 11/11/16 shows no change when compared to 11/10/16, however follow up official reading Chest X Ray 11/12/16 shows interstitial prominence which may reflect infection or edema, probable small pleural effusion, bibasilar atelectasis or infiltrates Chest Tube Pigtail Catheter was removed by ICU Team 11/12/16 Chest X Ray 11/13/16 showed mild bilateral improvement including infiltrate at the mid to inferior left lung zone, pleural effusion, elevated left hemidiaphragm Sepsis Secondary to Pneumonia and Bacteremia Patient received a total of 3 weeks of IV Antibiotics and ID Dr. Bowers has discontinued them Blood Culture 10/21/16 showed S. pneumoniae Blood Culture 10/26/16 showed Coag Neg Staph Repeat Blood Cultures on 10/28/16 and 11/01/16 were negative at 5 days Sputum Culture 11/01/16 was negative NO recent fevers Hypotension Episodes of Hypotension and patient is asymptomatic Seizure disorder 11/21: No active seizures Secondary to alcohol withdrawal. NO recent seizure reported Neurology Dr. Pineda Thrombocytopenia Likely Secondary to alcohol abuse. Heparin Abs were also ordered on 10/30/16 and this is NEGATIVE Psoriasis Renal failure Renal U/S 10/24/16 showed nonobstructing calculus upper/midpole Right Kidney and Abdominal Ascites Hepatitis Panel is negative Patient was receiving HD through Right Femoral Catheter and this was removed on 10/31/16 S/P Right Chest Perm Cath placement by Vascular Surgeon Dr. De La Vega . HD through Right Chest Perm Cath as per Nephrology Dr. Merida/Derian Sevelamer 800mg PO TID No HD today, 24 hr Urine for Creatinine clearance HD is currently on Hold, Cr 1.4 (11/19) Anemia Likely Secondary to Chronic Alcohol Use and Renal Failure-Iron deficient 11/22: Continue IV Ferricit. 11/21: Started IV Ferrcit today, his iron is very low, follow up B12 and folate studies. Stool Occult Blood 10/21/16 is negative Stool Occult Blood 11/11/16 was POSITIVE: GI Dr. Cee revaluated patient on and recommended monitoring of the HgB/Hct for now and transfuse if necessary. Dr. Cee's help is greatly appreciated HgB/Hct 8.3/24.7 on 11/14/16 and this has dropped to 7.6/22.9. Therefore repeat HgB/Hct at 1 PM and 9 PM 11/15/16. NOT tachycardiac and is asymptomatic therefore will hold off on PRBC transfusion for now. Also ordered was Repeat Occult Blood. Medicine Team, if the Repeat Stool Occult Blood is positive then resconsult GI Dr. Cee as then I feel EGD vs Colonoscopy would be in order. Hgb/Hct decreased from 8.4/25.5 to 7.7/23.5 (11/19) Procrit M-W-F 10,000 Units IV Ferrlecit 125 mg IV 1x/day Continue to monitor Hypokalemia 11/22: Patient's Mag replaced today, it was 1.3, 1 gram in 2 bags. 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 Patient stated that he did not have these tremors before he came to the hospital He is not on any medications currently that will cause the tremor. NO Propanalol considering the low end of normal Blood Pressure Primidone 50 mg PO 1x/day QHS has been ordered (as patient did complain of trouble sleeping upon ROS today 11/15/16). Prophylactic Measures Bilateral SCDs Protonix 40 mg IV 1x/day Acetaminophen 650 mg PO Q6H PRN Temp/Fever Florastor 250 mg PO 2x/day Albuterol 2.5 mg INH Q6H Encourage IS Novolin Regular ISS with Accuchecks PT/OT <Juan C Giles - Last Filed: 11/22/16 17:11> Objective - Vital Signs/Intake and Output Vital Signs (last 24 hours): Temp Pulse Resp BP Pulse Ox 97.9 F 80 20 127/80 100 11/22/16 08:26 11/22/16 08:26 11/22/16 08:26 11/22/16 08:26 11/22/16 08:26 Intake and Output: 11/22/16 11/22/16 06:59 18:59 Intake Total 240 900 Output Total 600 Balance -360 900 - Medications Medications: Current Medications Acetaminophen (Tylenol 650mg/20.3ml Solution Ud) 650 mg PO Q6 PRN PRN Reason: Temperature Last Admin: 11/02/16 23:46 Dose: 650 mg Albuterol/Ipratropium (Duoneb 3 Mg/0.5 Mg (3 Ml) Ud) 3 ml INH RQ2 PRN PRN Reason: Shortness of Breath Last Admin: 11/22/16 07:40 Dose: 3 ml Epoetin Humphrey (Procrit) 10,000 unit IV MWF [facility] Last Admin: 11/16/16 19:15 Dose: Not Given Escitalopram Oxalate (Lexapro) 5 mg PO DAILY [facility] Last Admin: 11/22/16 09:34 Dose: 5 mg Famotidine (Pepcid) 20 mg PO DAILY [facility] Last Admin: 11/22/16 09:34 Dose: 20 mg Ferric Sodium Gluconate Complex (Ferrlecit) 125 mg IVPB DAILY [facility] Stop: 11/26/16 11:01 Last Admin: 11/22/16 09:33 Dose: 125 mg Multivitamins (Hexavitamin) 1 tab PO DAILY [facility] Last Admin: 11/22/16 09:34 Dose: 1 tab Primidone (Mysoline) 50 mg PO HS [facility] Last Admin: 11/21/16 21:45 Dose: 50 mg - Labs Labs: 11/22/16 07:35 11/22/16 07:35 PT 17.7 SECONDS (9.7-12.2) H 10/29/16 06:22 INR 1.6 10/29/16 06:22 APTT 30 SECONDS (21-34) 10/29/16 06:22 Assessment and Plan (1) Alcohol withdrawal Status: Acute (2) Hypoxemia Status: Acute (3) Pneumonia Status: Acute (4) Respiratory distress Status: Acute (5) Seizure disorder Status: Acute (6) Sepsis Status: Acute (7) Thrombocythemia Status: Chronic (8) Psoriasis Status: Acute (9) Renal failure Status: Acute (10) Spontaneous pneumothorax Status: Acute Attending/Attestation - Attestation I have personally seen and examined this patient.: Yes I have fully participated in the care of the patient.: Yes I have reviewed all pertinent clinical information, including history, physical exam and plan: Yes Notes (Text): 11/22/16 17:11 Patient was seen and examined at bedside Patient is clinically improving Renal failure has resolved and patient is off hemodialysis now The plan will be to remove the hemodialysis catheter Continue physical therapy daily Discharge planning when patient is physically stronger and hemodialysis catheter is removed Discussed the plan of care with the resident and agree with the assessment and plan documented.
[2016-11-23 07:36] LABS: BASO % 0.6 % (0.0-2.0); EOS # 0.6 K/uL (0.0-0.7); HEMATOCRIT 22.9 % (35.0-51.0); LYMPH % 16.1 % (20.0-40.0); MEAN CELL VOLUME 96.9 fL (80.0-94.0); MEAN CORPUSCULAR HEMOGLOBIN 31.6 pg (27.0-31.0); MEAN CORPUSCULAR HGB CONC 32.6 g/dL (33.0-37.0); MEAN PLATELET VOLUME 9.3 fL (7.2-11.7); MONO # 0.6 K/uL (0.0-0.8); RED CELL DISTRIBUTION WIDTH 15.1 % (11.5-14.5); WHITE BLOOD COUNT 6.3 K/uL (4.8-10.8)
[2016-11-23 08:11] LABS: CHLORIDE 107 mmol/L (98-107)
[2016-11-23 08:12] LABS: POTASSIUM 3.4 mmol/L (3.6-5.2); SODIUM 138 mmol/L (132-148)
[2016-11-23 08:14] LABS: ALB/GLOB RATIO 0.7 (1.0-2.1); ALKALINE PHOSPHATASE 159 U/L (38-126); ALT/SGPT 34 U/L (21-72); AST/SGOT 29 U/L (17-59); BLOOD UREA NITROGEN 18 mg/dL (9-20); CARBON DIOXIDE 21 mmol/L (22-30); GFR AFRICAN-AMERICAN > 60; GLUCOSE,RANDOM 81 mg/dL (75-110); TOTAL PROTEIN 6.8 g/dL (6.3-8.3)
[2016-11-23 08:15] LABS: CALCIUM 8.2 mg/dl (8.6-10.4); MAGNESIUM 1.4 mg/dL (1.6-2.3); PHOSPHOROUS 4.3 mg/dL (2.5-4.5)
[2016-11-23] MEDS: Multiple Vitamins Tab PO SCH (09:28)
[2016-11-23] MEDS: Ferric Sodium Gluconat Complex 62.5 mg/5 ml Vial IVPB SCH (09:29)
[2016-11-23] MEDS: EPOETIN ALFA 10,000 UNIT/ML ML IV SCH (12:44)
--- NOTE | 2016-11-23 12:58 | CP.PCM.PN ---
<Arden Tena - Last Filed: 11/23/16 12:54> Subjective - Date & Time of Evaluation Date of Evaluation: 11/23/16 Time of Evaluation: 09:45 - Subjective Subjective: PGY1 for Dr. Marrero Patient seen and examined this morning at bedside. Patient states that he is feeling well, just his legs feel a little weak. He feels that he is improving each day with PT. He is tolerating his consistent carbohydrate diet. Denies f/c , n/v, d/c, sob, cp, lightheadedness or dizziness. Objective - Vital Signs/Intake and Output Vital Signs (last 24 hours): Temp Pulse Resp BP Pulse Ox 98.5 F 89 20 144/84 91 L 11/23/16 08:15 11/23/16 08:15 11/23/16 08:15 11/23/16 08:15 11/23/16 08:15 Intake and Output: 11/23/16 11/23/16 06:59 18:59 Intake Total 250 Balance 250 - Medications Medications: Current Medications Acetaminophen (Tylenol 650mg/20.3ml Solution Ud) 650 mg PO Q6 PRN PRN Reason: Temperature Last Admin: 11/02/16 23:46 Dose: 650 mg Albuterol/Ipratropium (Duoneb 3 Mg/0.5 Mg (3 Ml) Ud) 3 ml INH RQ2 PRN PRN Reason: Shortness of Breath Last Admin: 11/22/16 19:23 Dose: 3 ml Epoetin Humphrey (Procrit) 10,000 unit IV MWF [facility] Last Admin: 11/23/16 12:44 Dose: Not Given Escitalopram Oxalate (Lexapro) 5 mg PO DAILY [facility] Last Admin: 11/23/16 09:28 Dose: 5 mg Famotidine (Pepcid) 20 mg PO DAILY [facility] Last Admin: 11/23/16 09:28 Dose: 20 mg Ferric Sodium Gluconate Complex (Ferrlecit) 125 mg IVPB DAILY [facility] Stop: 11/26/16 11:01 Last Admin: 11/23/16 09:29 Dose: 125 mg Multivitamins (Hexavitamin) 1 tab PO DAILY [facility] Last Admin: 11/23/16 09:28 Dose: 1 tab Primidone (Mysoline) 50 mg PO [facility] Last Admin: 11/22/16 22:12 Dose: 50 mg - Labs Labs: 11/23/16 07:21 11/23/16 07:21 PT 17.7 SECONDS (9.7-12.2) H 10/29/16 06:22 INR 1.6 10/29/16 06:22 APTT 30 SECONDS (21-34) 10/29/16 06:22 - Constitutional Appears: Non-toxic, No Acute Distress - Head Exam Head Exam: ATRAUMATIC, NORMOCEPHALIC - Eye Exam Eye Exam: EOMI, Normal appearance - ENT Exam ENT Exam: Mucous Membranes Moist - Respiratory Exam Respiratory Exam: Clear to Ausculation Bilateral, NORMAL BREATHING PATTERN. absent: Accessory Muscle Use, Rales, Wheezes, Respiratory Distress - Cardiovascular Exam Cardiovascular Exam: REGULAR RHYTHM, +S1, +S2 - GI/Abdominal Exam GI & Abdominal Exam: Soft, Normal Bowel Sounds. absent: Distended, Guarding, Rigid, Tenderness - Extremities Exam Extremities Exam: absent: Calf Tenderness, Pedal Edema - Neurological Exam Neurological Exam: Alert, Awake, Oriented x3 - Psychiatric Exam Psychiatric exam: Normal Affect, Normal Mood - Skin Skin Exam: Dry, Normal Color, Warm Assessment and Plan - Assessment and Plan (Free Text) Plan: History of Alcohol Abuse 11/23: Patient still tremulous, will continue thiamine, folic acid and thiamine. 11/22: Still tremulous, continue thiamine, folic acid and thiamine. continue Lexapro 5mg for depression and anxiety 11/21: Tremulous with some problems with balance, continue thiamine and folic acid, physical therapy as well, most likely not to be able to discharge to [facility] because patient is [facility] care. NO signs of DTs Thiamine 100 mg IV 1x/day Folic Acid 1 mg IV 1x/day Division Chair consult to help patient with outpatient AA Psych Started patient on Lexapro 5mg PO daily for Depression and Anixety. Will refer to rehab upon discharge. Hypoxemia/Respiratory Distress Patient states no problems breathing. Encourage IS. Patient was extubated on 11/04/16 Left Pneumothorax/Left Loculated Effusion As per Chest X Ray 11/08/16: moderate loculated left sided pleuaral effusion, moderate to severe venous congestion with confluent consolidative changes at the left mid to lower lung zone, upper lobe granulomatous changes CT Chest 11/09/16 showed improvement in pulmonary edema, persistant Left Pleural Effusion but decreased in size, compressive atelectasis in left lower lobe Chest X Ray 11/10/16 show no change in left hemithorax appearance but decrease in right pleural effusion Chest X Ray 11/11/16 shows no change when compared to 11/10/16, however follow up official reading Chest X Ray 11/12/16 shows interstitial prominence which may reflect infection or edema, probable small pleural effusion, bibasilar atelectasis or infiltrates Chest Tube Pigtail Catheter was removed by ICU Team 11/12/16 Chest X Ray 11/13/16 showed mild bilateral improvement including infiltrate at the mid to inferior left lung zone, pleural effusion, elevated left hemidiaphragm Sepsis Secondary to Pneumonia and Bacteremia Patient received a total of 3 weeks of IV Antibiotics and ID Dr. Bowers has discontinued them. Blood Culture 10/21/16 showed S. pneumoniae Blood Culture 10/26/16 showed Coag Neg Staph Repeat Blood Cultures on 10/28/16 and 11/01/16 were negative at 5 days Sputum Culture 11/01/16 was negative NO recent fevers Hypotension Episodes of Hypotension and patient is asymptomatic Seizure disorder 11/21: No active seizures Secondary to alcohol withdrawal. NO recent seizure reported Neurology Dr. Pineda Thrombocytopenia Likely Secondary to alcohol abuse. Heparin Abs were also ordered on 10/30/16 and this is NEGATIVE Psoriasis Renal failure Renal U/S 10/24/16 showed nonobstructing calculus upper/midpole Right Kidney and Abdominal Ascites Hepatitis Panel is negative Patient was receiving HD through Right Femoral Catheter and this was removed on 10/31/16 S/P Right Chest Perm Cath placement by Vascular Surgeon Dr. De La Vega . HD through Right Chest Perm Cath as per Nephrology Dr. Merida/Derian Sevelamer 800mg PO TID No HD today, 24 hr Urine for Creatinine clearance HD is currently on Hold, Cr 1.1 today Anemia Likely Secondary to Chronic Alcohol Use and Renal Failure-Iron deficient 11/23: Hgb dropped from 7.7 to 7.5. Patient states that he is still feeling weak. Patient transfused 1 unit of pRBCs. 11/22: Continue IV Ferricit. 11/21: Started IV Ferrcit today, his iron is very low, follow up B12 and folate studies. Stool Occult Blood 10/21/16 is negative Stool Occult Blood 11/11/16 was POSITIVE: GI Dr. Cee revaluated patient on and recommended monitoring of the HgB/Hct for now and transfuse if necessary. Dr. Cee's help is greatly appreciated HgB/Hct 8.3/24.7 on 11/14/16 and this has dropped to 7.6/22.9. Therefore repeat HgB/Hct at 1 PM and 9 PM 11/15/16. NOT tachycardiac and is asymptomatic therefore will hold off on PRBC transfusion for now. Also ordered was Repeat Occult Blood. Medicine Team, if the Repeat Stool Occult Blood is positive then resconsult GI Dr. Cee as then I feel EGD vs Colonoscopy would be in order. Hgb/Hct decreased from 8.4/25.5 to 7.7/23.5 (11/19) Procrit M-W-F 10,000 Units IV Ferrlecit 125 mg IV 1x/day Continue to monitor Hypokalemia 11/23: K = 3.4 repleted with 40meq, mag 1.4 repleted with 1gm. 11/22: Patient's Mag replaced today, it was 1.3, 1 gram in 2 bags. 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 Patient stated that he did not have these tremors before he came to the hospital He is not on any medications currently that will cause the tremor. NO Propanalol considering the low end of normal Blood Pressure Primidone 50 mg PO 1x/day QHS has been ordered (as patient did complain of trouble sleeping upon ROS today 11/15/16). Prophylactic Measures Bilateral SCDs Protonix 40 mg IV 1x/day Acetaminophen 650 mg PO Q6H PRN Temp/Fever Florastor 250 mg PO 2x/day Albuterol 2.5 mg INH Q6H Encourage IS Novolin Regular ISS with Accuchecks PT/OT Case Discussed with Dr. Elida Tena PGY1 <Huey Marrero - Last Filed: 11/23/16 15:43> Objective - Vital Signs/Intake and Output Vital Signs (last 24 hours): Temp Pulse Resp BP Pulse Ox 97.8 F 92 H 20 152/83 H 91 L 11/23/16 14:43 11/23/16 14:43 11/23/16 14:43 11/23/16 14:43 11/23/16 08:15 Intake and Output: 11/23/16 11/23/16 06:59 18:59 Intake Total 250 0 Balance 250 0 - Medications Medications: Current Medications Acetaminophen (Tylenol 650mg/20.3ml Solution Ud) 650 mg PO Q6 PRN PRN Reason: Temperature Last Admin: 11/02/16 23:46 Dose: 650 mg Albuterol/Ipratropium (Duoneb 3 Mg/0.5 Mg (3 Ml) Ud) 3 ml INH RQ2 PRN PRN Reason: Shortness of Breath Last Admin: 11/23/16 13:33 Dose: 3 ml Epoetin Humphrey (Procrit) 10,000 unit IV MWF [facility] Last Admin: 11/23/16 12:44 Dose: Not Given Escitalopram Oxalate (Lexapro) 5 mg PO DAILY [facility] Last Admin: 11/23/16 09:28 Dose: 5 mg Famotidine (Pepcid) 20 mg PO DAILY [facility] Last Admin: 11/23/16 09:28 Dose: 20 mg Ferric Sodium Gluconate Complex (Ferrlecit) 125 mg IVPB DAILY [facility] Stop: 11/26/16 11:01 Last Admin: 11/23/16 09:29 Dose: 125 mg Multivitamins (Hexavitamin) 1 tab PO DAILY [facility] Last Admin: 11/23/16 09:28 Dose: 1 tab Primidone (Mysoline) 50 mg PO [facility] Last Admin: 11/22/16 22:12 Dose: 50 mg - Labs Labs: 11/23/16 07:21 11/23/16 07:21 PT 17.7 SECONDS (9.7-12.2) H 10/29/16 06:22 INR 1.6 10/29/16 06:22 APTT 30 SECONDS (21-34) 10/29/16 06:22 Attending/Attestation - Attestation I have personally seen and examined this patient.: Yes I have fully participated in the care of the patient.: Yes I have reviewed all pertinent clinical information, including history, physical exam and plan: Yes Notes (Text): 11/23/16 15:36 Medical attending: Patient was seen and examined by me, agrees the above note by medical technologist hematology. This is my first time meeting the patient's reviewed the previous notes as well as discussed with the patient as well as the medical technologist hematology and staff who have been seeing the patient. Per my discussion with the patient he explains that he does drink quite significantly he also explains that he's been in the past recent drinking significantly more and eating much less With regards to his hemoglobin he is anemic he did have blood transfusions when he came in however with hemoglobin now coming down to 7.5 and the patient explained to me that he feels weak when he walks or can transfuse him 1 unit of PRBCs. I suspect that the the anemia may be related to anemia of chronic disease as well as malnutrition. Secondary from the use of a lot of alcohol Thank you very much, Huey Marrero
[2016-11-23] MEDS ORDERED: Magnesium Sulfate 1 gm in D5W 1 GM/100 ML BAG IVPB ONE (12:59)
[2016-11-23] MEDS ORDERED: Potassium Chloride 20 mEq ER Tab PO ONE (13:00)
[2016-11-23] MEDS: Albuterol-Ipratrop 3 mg / 0.5 (3 ml) UD INH PRN (13:33)
--- NOTE | 2016-11-24 07:08 | CP.PCM.PN ---
<Arden Tena - Last Filed: 11/24/16 16:21> Subjective - Date & Time of Evaluation Date of Evaluation: 11/24/16 Time of Evaluation: 07:04 - Subjective Subjective: PGY1 for Dr. Marrero Patient seen and examined this morning at bedside. Patient states that he is feeling well and that he feels he is improving his leg strength. He feels that he is still weak and is requesting a walker. He is tolerating his consistent carbohydrate diet. Denies f/c, n/v, d/c, sob, cp, lightheadedness or dizziness. Objective - Vital Signs/Intake and Output Vital Signs (last 24 hours): Temp Pulse Resp BP Pulse Ox 98.9 F 88 20 150/81 95 11/23/16 23:15 11/23/16 23:15 11/23/16 23:15 11/23/16 23:15 11/23/16 23:15 Intake and Output: 11/24/16 11/24/16 06:59 18:59 Intake Total 300 Balance 300 - Medications Medications: Current Medications Acetaminophen (Tylenol 650mg/20.3ml Solution Ud) 650 mg PO Q6 PRN PRN Reason: Temperature Last Admin: 11/02/16 23:46 Dose: 650 mg Albuterol/Ipratropium (Duoneb 3 Mg/0.5 Mg (3 Ml) Ud) 3 ml INH RQ2 PRN PRN Reason: Shortness of Breath Last Admin: 11/23/16 13:33 Dose: 3 ml Epoetin Humphrey (Procrit) 10,000 unit IV MWF [facility] Last Admin: 11/23/16 12:44 Dose: Not Given Escitalopram Oxalate (Lexapro) 5 mg PO DAILY [facility] Last Admin: 11/23/16 09:28 Dose: 5 mg Famotidine (Pepcid) 20 mg PO DAILY [facility] Last Admin: 11/23/16 09:28 Dose: 20 mg Ferric Sodium Gluconate Complex (Ferrlecit) 125 mg IVPB DAILY [facility] Stop: 11/26/16 11:01 Last Admin: 11/23/16 09:29 Dose: 125 mg Multivitamins (Hexavitamin) 1 tab PO DAILY [facility] Last Admin: 11/23/16 09:28 Dose: 1 tab Primidone (Mysoline) 50 mg PO [facility] Last Admin: 11/23/16 21:37 Dose: 50 mg - Labs Labs: 11/23/16 07:21 11/23/16 07:21 PT 17.7 SECONDS (9.7-12.2) H 10/29/16 06:22 INR 1.6 10/29/16 06:22 APTT 30 SECONDS (21-34) 10/29/16 06:22 - Constitutional Appears: Non-toxic, No Acute Distress - Head Exam Head Exam: ATRAUMATIC, NORMOCEPHALIC - Eye Exam Eye Exam: EOMI, Normal appearance - ENT Exam ENT Exam: Mucous Membranes Moist - Respiratory Exam Respiratory Exam: Clear to Ausculation Bilateral, NORMAL BREATHING PATTERN. absent: Accessory Muscle Use, Wheezes, Respiratory Distress - Cardiovascular Exam Cardiovascular Exam: REGULAR RHYTHM, +S1, +S2 - GI/Abdominal Exam GI & Abdominal Exam: Soft, Normal Bowel Sounds. absent: Distended, Guarding, Tenderness - Extremities Exam Extremities Exam: Normal Inspection. absent: Calf Tenderness, Pedal Edema - Neurological Exam Neurological Exam: Alert, Awake, Oriented x3 - Psychiatric Exam Psychiatric exam: Normal Affect, Normal Mood - Skin Skin Exam: Dry, Normal Color, Warm Assessment and Plan - Assessment and Plan (Free Text) Plan: History of Alcohol Abuse 11/23: Patient still tremulous, will continue thiamine, folic acid and thiamine. 11/22: Still tremulous, continue thiamine, folic acid and thiamine. continue Lexapro 5mg for depression and anxiety 11/21: Tremulous with some problems with balance, continue thiamine and folic acid, physical therapy as well, most likely not to be able to discharge to [facility] because patient is [facility], [place]. NO signs of DTs Thiamine 100 mg IV 1x/day Folic Acid 1 mg IV 1x/day Kettle Room Helper consult to help patient with outpatient AA Psych Started patient on Lexapro 5mg PO daily for Depression and Anixety. Will refer to rehab upon discharge. Hypoxemia/Respiratory Distress Patient states no problems breathing. Encourage IS. Patient was extubated on 11/04/16 Left Pneumothorax/Left Loculated Effusion As per Chest X Ray 11/08/16: moderate loculated left sided pleuaral effusion, moderate to severe venous congestion with confluent consolidative changes at the left mid to lower lung zone, upper lobe granulomatous changes CT Chest 11/09/16 showed improvement in pulmonary edema, persistant Left Pleural Effusion but decreased in size, compressive atelectasis in left lower lobe Chest X Ray 11/10/16 show no change in left hemithorax appearance but decrease in right pleural effusion Chest X Ray 11/11/16 shows no change when compared to 11/10/16, however follow up official reading Chest X Ray 11/12/16 shows interstitial prominence which may reflect infection or edema, probable small pleural effusion, bibasilar atelectasis or infiltrates Chest Tube Pigtail Catheter was removed by ICU Team 11/12/16 Chest X Ray 11/13/16 showed mild bilateral improvement including infiltrate at the mid to inferior left lung zone, pleural effusion, elevated left hemidiaphragm Sepsis Secondary to Pneumonia and Bacteremia Patient received a total of 3 weeks of IV Antibiotics and ID Dr. Bowers has discontinued them. Blood Culture 10/21/16 showed S. pneumoniae Blood Culture 10/26/16 showed Coag Neg Staph Repeat Blood Cultures on 10/28/16 and 11/01/16 were negative at 5 days Sputum Culture 11/01/16 was negative NO recent fevers Hypotension Episodes of Hypotension and patient is asymptomatic Seizure disorder 11/21: No active seizures Secondary to alcohol withdrawal. NO recent seizure reported Neurology Dr. Pineda Thrombocytopenia Likely Secondary to alcohol abuse. Heparin Abs were also ordered on 10/30/16 and this is NEGATIVE Psoriasis Renal failure Renal U/S 10/24/16 showed nonobstructing calculus upper/midpole Right Kidney and Abdominal Ascites Hepatitis Panel is negative Patient was receiving HD through Right Femoral Catheter and this was removed on 10/31/16 S/P Right Chest Perm Cath placement by Vascular Surgeon Dr. De La Vega . HD through Right Chest Perm Cath as per Nephrology Dr. Merida/Derian Sevelamer 800mg PO TID No HD today, 24 hr Urine for Creatinine clearance HD is currently on Hold, Cr 1.1 today Anemia Likely Secondary to Chronic Alcohol Use and Renal Failure-Iron deficient 11/23: Hgb dropped from 7.7 to 7.5. Patient states that he is still feeling weak. Patient transfused 1 unit of pRBCs. 11/22: Continue IV Ferricit. 11/21: Started IV Ferrcit today, his iron is very low, follow up B12 and folate studies. Stool Occult Blood 10/21/16 is negative Stool Occult Blood 11/11/16 was POSITIVE: GI Dr. Cee revaluated patient on and recommended monitoring of the HgB/Hct for now and transfuse if necessary. Dr. Cee's help is greatly appreciated HgB/Hct 8.3/24.7 on 11/14/16 and this has dropped to 7.6/22.9. Therefore repeat HgB/Hct at 1 PM and 9 PM 11/15/16. NOT tachycardiac and is asymptomatic therefore will hold off on PRBC transfusion for now. Also ordered was Repeat Occult Blood. Medicine Team, if the Repeat Stool Occult Blood is positive then resconsult GI Dr. Cee as then I feel EGD vs Colonoscopy would be in order. Hgb/Hct decreased from 8.4/25.5 to 7.7/23.5 (11/19) Procrit M-W-F 10,000 Units IV Ferrlecit 125 mg IV 1x/day Continue to monitor Hypokalemia 11/23: K = 3.4 repleted with 40meq, mag 1.4 repleted with 1gm. 11/22: Patient's Mag replaced today, it was 1.3, 1 gram in 2 bags. 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 Patient stated that he did not have these tremors before he came to the hospital He is not on any medications currently that will cause the tremor. NO Propanalol considering the low end of normal Blood Pressure Primidone 50 mg PO 1x/day QHS has been ordered (as patient did complain of trouble sleeping upon ROS today 11/15/16). Prophylactic Measures Bilateral SCDs Protonix 40 mg IV 1x/day Acetaminophen 650 mg PO Q6H PRN Temp/Fever Florastor 250 mg PO 2x/day Albuterol 2.5 mg INH Q6H Encourage IS Novolin Regular ISS with Accuchecks PT/OT to improve strength. Possible dc in one to two days with improved strength. Case Discussed with Dr. Elida Her Mallika PGY1 <Huey Marrero - Last Filed: 11/24/16 16:36> Objective - Vital Signs/Intake and Output Vital Signs (last 24 hours): Temp Pulse Resp BP Pulse Ox 98.2 F 86 18 153/83 H 99 11/24/16 07:35 11/24/16 07:35 11/24/16 07:35 11/24/16 07:35 11/24/16 07:35 Intake and Output: 11/24/16 11/24/16 06:59 18:59 Intake Total 300 Balance 300 - Medications Medications: Current Medications Acetaminophen (Tylenol 650mg/20.3ml Solution Ud) 650 mg PO Q6 PRN PRN Reason: Temperature Last Admin: 11/02/16 23:46 Dose: 650 mg Albuterol/Ipratropium (Duoneb 3 Mg/0.5 Mg (3 Ml) Ud) 3 ml INH RQ2 PRN PRN Reason: Shortness of Breath Last Admin: 11/24/16 13:19 Dose: 3 ml Epoetin Humphrey (Procrit) 10,000 unit IV MWF [facility] Last Admin: 11/23/16 12:44 Dose: Not Given Escitalopram Oxalate (Lexapro) 5 mg PO DAILY [facility] Last Admin: 11/24/16 09:57 Dose: 5 mg Famotidine (Pepcid) 20 mg PO DAILY [facility] Last Admin: 11/24/16 09:57 Dose: 20 mg Ferric Sodium Gluconate Complex (Ferrlecit) 125 mg IVPB DAILY [facility] Stop: 11/26/16 11:01 Last Admin: 11/24/16 09:56 Dose: 125 mg Multivitamins (Hexavitamin) 1 tab PO DAILY [facility] Last Admin: 11/24/16 09:57 Dose: 1 tab Primidone (Mysoline) 50 mg PO HS [facility] Last Admin: 11/23/16 21:37 Dose: 50 mg - Labs Labs: 11/24/16 07:10 11/24/16 07:10 PT 17.7 SECONDS (9.7-12.2) H 10/29/16 06:22 INR 1.6 10/29/16 06:22 APTT 30 SECONDS (21-34) 10/29/16 06:22 Attending/Attestation - Attestation I have personally seen and examined this patient.: Yes I have fully participated in the care of the patient.: Yes I have reviewed all pertinent clinical information, including history, physical exam and plan: Yes Notes (Text): Medical attending: Patient was seen and examined by me, agrees the above note by registered medical assistant. The patient did not have any acute concerns today, on physical exam we had him walk in the hallway with this he was able to do so very slowly however he was able to do so by himself we explained to him that if his lab work remained stable there is no acute changes we intend to discharge him relatively soon Thank you very much, Huey Marrero
[2016-11-24 07:39] LABS: BASO % 0.6 % (0.0-2.0); EOS # 0.6 K/uL (0.0-0.7); EOS % 8.6 % (0.0-4.0); HEMATOCRIT 25.5 % (35.0-51.0); LYMPH # 1.1 K/uL (1.0-4.3); LYMPH % 16.4 % (20.0-40.0); MEAN CORPUSCULAR HGB CONC 32.6 g/dL (33.0-37.0); MEAN PLATELET VOLUME 9.5 fL (7.2-11.7); MONO # 0.8 K/uL (0.0-0.8); NRBC % 0.1 % (0.0-2.0); WHITE BLOOD COUNT 6.9 K/uL (4.8-10.8)
[2016-11-24] MEDS: Albuterol-Ipratrop 3 mg / 0.5 (3 ml) UD INH PRN ×2 (07:47→13:19)
[2016-11-24 07:51] LABS: MEAN CELL VOLUME 94.8 fL (80.0-94.0)
[2016-11-24 08:52] LABS: ALB/GLOB RATIO 0.7 (1.0-2.1); ALKALINE PHOSPHATASE 156 U/L (38-126); ALT/SGPT 39 U/L (21-72); AST/SGOT 39 U/L (17-59); BILIRUBIN,TOTAL 1.2 mg/dL (0.2-1.3); BLOOD UREA NITROGEN 18 mg/dL (9-20); CALCIUM 8.5 mg/dl (8.6-10.4); CARBON DIOXIDE 19 mmol/L (22-30); CHLORIDE 109 mmol/L (98-107); GFR AFRICAN-AMERICAN > 60; GLUCOSE,RANDOM 78 mg/dL (75-110); MAGNESIUM 1.6 mg/dL (1.6-2.3); PHOSPHOROUS 4.2 mg/dL (2.5-4.5); POTASSIUM 3.9 mmol/L (3.6-5.2); SODIUM 139 mmol/L (132-148); TOTAL PROTEIN 6.8 g/dL (6.3-8.3)
[2016-11-24] MEDS: Ferric Sodium Gluconat Complex 62.5 mg/5 ml Vial IVPB SCH (09:56)
[2016-11-24] MEDS: Multiple Vitamins Tab PO SCH (09:57)
--- NOTE | 2016-11-24 11:14 | CP.PCM.PN ---
Subjective - Date & Time of Evaluation Date of Evaluation: 11/24/16 Time of Evaluation: 10:45 - Subjective Subjective: F/U visit. Feels better. No SOB Objective - Vital Signs/Intake and Output Vital Signs (last 24 hours): Temp Pulse Resp BP Pulse Ox 98.2 F 86 18 153/83 H 99 11/24/16 07:35 11/24/16 07:35 11/24/16 07:35 11/24/16 07:35 11/24/16 07:35 Intake and Output: 11/24/16 11/24/16 06:59 18:59 Intake Total 300 Balance 300 - Medications Medications: Current Medications Acetaminophen (Tylenol 650mg/20.3ml Solution Ud) 650 mg PO Q6 PRN PRN Reason: Temperature Last Admin: 11/02/16 23:46 Dose: 650 mg Albuterol/Ipratropium (Duoneb 3 Mg/0.5 Mg (3 Ml) Ud) 3 ml INH RQ2 PRN PRN Reason: Shortness of Breath Last Admin: 11/24/16 07:47 Dose: 3 ml Epoetin Humphrey (Procrit) 10,000 unit IV MWF [facility] Last Admin: 11/23/16 12:44 Dose: Not Given Escitalopram Oxalate (Lexapro) 5 mg PO DAILY [facility] Last Admin: 11/24/16 09:57 Dose: 5 mg Famotidine (Pepcid) 20 mg PO DAILY [facility] Last Admin: 11/24/16 09:57 Dose: 20 mg Ferric Sodium Gluconate Complex (Ferrlecit) 125 mg IVPB DAILY [facility] Stop: 11/26/16 11:01 Last Admin: 11/24/16 09:56 Dose: 125 mg Multivitamins (Hexavitamin) 1 tab PO DAILY [facility] Last Admin: 11/24/16 09:57 Dose: 1 tab Primidone (Mysoline) 50 mg PO [facility] Last Admin: 11/23/16 21:37 Dose: 50 mg - Labs Labs: 11/24/16 07:10 11/24/16 07:10 PT 17.7 SECONDS (9.7-12.2) H 10/29/16 06:22 INR 1.6 10/29/16 06:22 APTT 30 SECONDS (21-34) 10/29/16 06:22 - Respiratory Exam Additional comments: Lungs clear - Cardiovascular Exam Cardiovascular Exam: REGULAR RHYTHM - Extremities Exam Additional comments: No eema Assessment and Plan - Assessment and Plan (Free Text) Assessment: Renal function remains stable Hypokalemia & hypomagnesemia corrected Anemia. Hb is improved. On Feerlecit & Epogen Plan: Continue current Mx
[2016-11-24 16:29] VITALS: RESP 20
[2016-11-25] MEDS: Albuterol-Ipratrop 3 mg / 0.5 (3 ml) UD INH PRN ×2 (07:20→13:08)
[2016-11-25 07:21] LABS: BASO % 0.8 % (0.0-2.0); EOS # 0.6 K/uL (0.0-0.7); EOS % 9.5 % (0.0-4.0); HEMATOCRIT 24.3 % (35.0-51.0); LYMPH # 1.1 K/uL (1.0-4.3); MEAN CELL VOLUME 94.3 fL (80.0-94.0); MEAN CORPUSCULAR HGB CONC 32.9 g/dL (33.0-37.0); MONO # 0.6 K/uL (0.0-0.8); MONO % 9.9 % (0.0-10.0); NRBC % 0.1 % (0.0-2.0); WHITE BLOOD COUNT 6.2 K/uL (4.8-10.8)
[2016-11-25 07:46] LABS: CHLORIDE 108 mmol/L (98-107)
[2016-11-25 07:47] LABS: SODIUM 140 mmol/L (132-148)
[2016-11-25 07:48] LABS: POTASSIUM 3.5 mmol/L (3.6-5.2)
[2016-11-25 07:50] LABS: ALB/GLOB RATIO 0.6 (1.0-2.1); ALKALINE PHOSPHATASE 160 U/L (38-126); ALT/SGPT 39 U/L (21-72); AST/SGOT 39 U/L (17-59); BLOOD UREA NITROGEN 16 mg/dL (9-20); CARBON DIOXIDE 20 mmol/L (22-30); GFR AFRICAN-AMERICAN > 60; GLUCOSE,RANDOM 78 mg/dL (75-110); PHOSPHOROUS 4.4 mg/dL (2.5-4.5); TOTAL PROTEIN 6.8 g/dL (6.3-8.3)
[2016-11-25 07:51] LABS: CALCIUM 8.3 mg/dl (8.6-10.4); MAGNESIUM 1.3 mg/dL (1.6-2.3)
[2016-11-25] MEDS: Ferric Sodium Gluconat Complex 62.5 mg/5 ml Vial IVPB SCH (09:39)
[2016-11-25] MEDS: Multiple Vitamins Tab PO SCH (09:39)
[2016-11-25] MEDS: EPOETIN ALFA 10,000 UNIT/ML ML IV SCH (10:00)
[2016-11-25] MEDS ORDERED: Potassium Chloride 20 mEq ER Tab PO SCH (10:00)
--- NOTE | 2016-11-25 13:43 | CP.PCM.PN ---
<Arden Tena - Last Filed: 11/25/16 13:36> Subjective - Date & Time of Evaluation Date of Evaluation: 11/25/16 Time of Evaluation: 07:35 - Subjective Subjective: PGY1 Medicine Note for Dr. Marrero Patient seen and examined at bedside this morning. Patient states he is feeling stronger and stronger by the day. He says he has been able to get up and walk with PT. He requests either a cane or a rolling walker upon discharge. Patient is tolerating his diet. Denies f/c, n/v, d/c, sob or cp. Objective - Vital Signs/Intake and Output Vital Signs (last 24 hours): Temp Pulse Resp BP Pulse Ox 98.7 F 93 H 20 137/82 97 11/25/16 07:10 11/25/16 07:10 11/25/16 07:10 11/25/16 07:10 11/25/16 07:10 Intake and Output: 11/25/16 11/25/16 06:59 18:59 Intake Total 320 Balance 320 - Medications Medications: Current Medications Acetaminophen (Tylenol 650mg/20.3ml Solution Ud) 650 mg PO Q6 PRN PRN Reason: Temperature Last Admin: 11/02/16 23:46 Dose: 650 mg Albuterol/Ipratropium (Duoneb 3 Mg/0.5 Mg (3 Ml) Ud) 3 ml INH RQ2 PRN PRN Reason: Shortness of Breath Last Admin: 11/25/16 13:08 Dose: 3 ml Epoetin Humphrey (Procrit) 10,000 unit IV MWF [facility] Last Admin: 11/23/16 12:44 Dose: Not Given Escitalopram Oxalate (Lexapro) 5 mg PO DAILY [facility] Last Admin: 11/25/16 09:40 Dose: 5 mg Famotidine (Pepcid) 20 mg PO DAILY [facility] Last Admin: 11/25/16 09:39 Dose: 20 mg Ferric Sodium Gluconate Complex (Ferrlecit) 125 mg IVPB DAILY [facility] Stop: 11/26/16 11:01 Last Admin: 11/25/16 09:39 Dose: 125 mg Multivitamins (Hexavitamin) 1 tab PO DAILY [facility] Last Admin: 11/25/16 09:39 Dose: 1 tab Potassium Chloride (K-Dur 20 Meq Er Tab) 40 meq PO DAILY [facility] Last Admin: 11/25/16 10:36 Dose: 40 meq Primidone (Mysoline) 50 mg PO HS [facility] Last Admin: 11/24/16 21:39 Dose: 50 mg - Labs Labs: 11/25/16 06:55 11/25/16 06:55 PT 17.7 SECONDS (9.7-12.2) H 10/29/16 06:22 INR 1.6 10/29/16 06:22 APTT 30 SECONDS (21-34) 10/29/16 06:22 - Constitutional Appears: Non-toxic, No Acute Distress - Head Exam Head Exam: ATRAUMATIC, NORMOCEPHALIC - Eye Exam Eye Exam: EOMI - ENT Exam ENT Exam: Mucous Membranes Moist - Respiratory Exam Respiratory Exam: Clear to Ausculation Bilateral, NORMAL BREATHING PATTERN. absent: Accessory Muscle Use, Rales, Wheezes, Respiratory Distress - Cardiovascular Exam Cardiovascular Exam: REGULAR RHYTHM, +S1, +S2 - GI/Abdominal Exam GI & Abdominal Exam: Hyperactive Bowel Sounds, Normal Bowel Sounds. absent: Distended, Guarding, Tenderness - Extremities Exam Extremities Exam: absent: Calf Tenderness, Pedal Edema - Neurological Exam Neurological Exam: Alert, Awake, Oriented x3 - Psychiatric Exam Psychiatric exam: Normal Affect, Normal Mood - Skin Skin Exam: Dry, Normal Color, Warm Assessment and Plan - Assessment and Plan (Free Text) Plan: History of Alcohol Abuse 11/23: Patient still tremulous, will continue thiamine, folic acid and thiamine. 11/22: Still tremulous, continue thiamine, folic acid and thiamine. continue Lexapro 5mg for depression and anxiety 11/21: Tremulous with some problems with balance, continue thiamine and folic acid, physical therapy as well, most likely not to be able to discharge to [facility] because patient is [place]. 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 Will refer to rehab upon discharge. Hypoxemia/Respiratory Distress Patient states no problems breathing. Encourage IS. Patient was extubated on 11/04/16 Left Pneumothorax/Left Loculated Effusion As per Chest X Ray 11/08/16: moderate loculated left sided pleuaral effusion, moderate to severe venous congestion with confluent consolidative changes at the left mid to lower lung zone, upper lobe granulomatous changes CT Chest 11/09/16 showed improvement in pulmonary edema, persistant Left Pleural Effusion but decreased in size, compressive atelectasis in left lower lobe Chest X Ray 11/10/16 show no change in left hemithorax appearance but decrease in right pleural effusion Chest X Ray 11/11/16 shows no change when compared to 11/10/16, however follow up official reading Chest X Ray 11/12/16 shows interstitial prominence which may reflect infection or edema, probable small pleural effusion, bibasilar atelectasis or infiltrates Chest Tube Pigtail Catheter was removed by ICU Team 11/12/16 Chest X Ray 11/13/16 showed mild bilateral improvement including infiltrate at the mid to inferior left lung zone, pleural effusion, elevated left hemidiaphragm Sepsis Secondary to Pneumonia and Bacteremia Patient received a total of 3 weeks of IV Antibiotics and ID Dr. Bowers has discontinued them. Blood Culture 10/21/16 showed S. pneumoniae Blood Culture 10/26/16 showed Coag Neg Staph Repeat Blood Cultures on 10/28/16 and 11/01/16 were negative at 5 days Sputum Culture 11/01/16 was negative NO recent fevers Hypotension Episodes of Hypotension and patient is asymptomatic Seizure disorder 11/21: No active seizures Secondary to alcohol withdrawal. NO recent seizure reported Neurology Dr. Pineda Thrombocytopenia 11/25: stable at 138 Likely Secondary to alcohol abuse. Heparin Abs were also ordered on 10/30/16 and this is NEGATIVE Psoriasis Renal failure Renal U/S 10/24/16 showed nonobstructing calculus upper/midpole Right Kidney and Abdominal Ascites Hepatitis Panel is negative Patient was receiving HD through Right Femoral Catheter and this was removed on 10/31/16 S/P Right Chest Perm Cath placement by Vascular Surgeon Dr. De La Vega . HD through Right Chest Perm Cath as per Nephrology Dr. Merida/Derian Sevelamer 800mg PO TID No HD today, 24 hr Urine for Creatinine clearance HD is currently on Hold, Cr 1.0 today Awaiting call back from Dr. Merida to see if we can remove perm cath before patient is discharged. Anemia Likely Secondary to Chronic Alcohol Use and Renal Failure-Iron deficient 11/25: Hgb stable at 8.0 11/23: Hgb dropped from 7.7 to 7.5. Patient states that he is still feeling weak. Patient transfused 1 unit of pRBCs. 11/22: Continue IV Ferricit. 11/21: Started IV Ferrcit today, his iron is very low, follow up B12 and folate studies. Stool Occult Blood 10/21/16 is negative Stool Occult Blood 11/11/16 was POSITIVE: GI Dr. Cee revaluated patient on and recommended monitoring of the HgB/Hct for now and transfuse if necessary. Dr. Cee's help is greatly appreciated HgB/Hct 8.3/24.7 on 11/14/16 and this has dropped to 7.6/22.9. Therefore repeat HgB/Hct at 1 PM and 9 PM 11/15/16. NOT tachycardiac and is asymptomatic therefore will hold off on PRBC transfusion for now. Also ordered was Repeat Occult Blood. Medicine Team, if the Repeat Stool Occult Blood is positive then resconsult GI Dr. Cee as then I feel EGD vs Colonoscopy would be in order. Hgb/Hct decreased from 8.4/25.5 to 7.7/23.5 (11/19) Procrit M-W-F 10,000 Units IV Ferrlecit 125 mg IV 1x/day Continue to monitor Hypokalemia 11/25: K = 3.5 repleted with 40meq 11/23: K = 3.4 repleted with 40meq, mag 1.4 repleted with 1gm. 11/22: Patient's Mag replaced today, it was 1.3, 1 gram in 2 bags. 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 Patient stated that he did not have these tremors before he came to the hospital He is not on any medications currently that will cause the tremor. NO Propanalol considering the low end of normal Blood Pressure Primidone 50 mg PO 1x/day QHS has been ordered (as patient did complain of trouble sleeping upon ROS today 11/15/16). Prophylactic Measures Bilateral SCDs Protonix 40 mg IV 1x/day Acetaminophen 650 mg PO Q6H PRN Temp/Fever Florastor 250 mg PO 2x/day Albuterol 2.5 mg INH Q6H Encourage IS Novolin Regular ISS with Accuchecks PT/OT to improve strength. Possible dc in one to two days with improved strength. Case Discussed with Dr. Elida Her Mallika PGY1 <Huey Marrero H - Last Filed: 11/25/16 14:09> Objective - Vital Signs/Intake and Output Vital Signs (last 24 hours): Temp Pulse Resp BP Pulse Ox 98.7 F 93 H 20 137/82 97 11/25/16 07:10 11/25/16 07:10 11/25/16 07:10 11/25/16 07:10 11/25/16 07:10 Intake and Output: 11/25/16 11/25/16 06:59 18:59 Intake Total 320 Balance 320 - Medications Medications: Current Medications Acetaminophen (Tylenol 650mg/20.3ml Solution Ud) 650 mg PO Q6 PRN PRN Reason: Temperature Last Admin: 11/02/16 23:46 Dose: 650 mg Albuterol/Ipratropium (Duoneb 3 Mg/0.5 Mg (3 Ml) Ud) 3 ml INH RQ2 PRN PRN Reason: Shortness of Breath Last Admin: 11/25/16 13:08 Dose: 3 ml Epoetin Humphrey (Procrit) 10,000 unit IV MWF [facility] Last Admin: 11/25/16 10:00 Dose: Not Given Escitalopram Oxalate (Lexapro) 5 mg PO DAILY [facility] Last Admin: 11/25/16 09:40 Dose: 5 mg Famotidine (Pepcid) 20 mg PO DAILY [facility] Last Admin: 11/25/16 09:39 Dose: 20 mg Ferric Sodium Gluconate Complex (Ferrlecit) 125 mg IVPB DAILY [facility] Stop: 11/26/16 11:01 Last Admin: 11/25/16 09:39 Dose: 125 mg Multivitamins (Hexavitamin) 1 tab PO DAILY [facility] Last Admin: 11/25/16 09:39 Dose: 1 tab Potassium Chloride (K-Dur 20 Meq Er Tab) 40 meq PO DAILY [facility] Last Admin: 11/25/16 10:36 Dose: 40 meq Primidone (Mysoline) 50 mg PO HS [facility] Last Admin: 11/24/16 21:39 Dose: 50 mg - Labs Labs: 11/25/16 06:55 11/25/16 06:55 PT 17.7 SECONDS (9.7-12.2) H 10/29/16 06:22 INR 1.6 10/29/16 06:22 APTT 30 SECONDS (21-34) 10/29/16 06:22 Attending/Attestation - Attestation I have personally seen and examined this patient.: Yes I have fully participated in the care of the patient.: Yes I have reviewed all pertinent clinical information, including history, physical exam and plan: Yes Notes (Text): 11/25/16 14:05 Medical attending: Patient was seen and examined by me, agrees the above note by medical collections. The patient is standing up and is able to walk around his need to go with a walker or walking cane He is tolerating his diet, is going to the bathroom okay. He no longer needs hemodialysis at this time. Patient will eventually need to follow-up at [facility] for further checkup sending lab work follow-ups. Thank you very much, Thank you Huey Marrero
[2016-11-25 16:26] VITALS: BP 147/81; PULSE 80; TEMP 97.2; O2SAT 94
--- NOTE | 2016-11-27 13:11 | CP.PCM.DIS ---
Provider - Provider Date of Admission: 10/21/16 12:07 Attending physician: Huey Marrero DO Consults: Dr Merida ~ Nephrology Dr Bowers ~ Infectious Disease Time Spent in preparation of Discharge (in minutes): 29 Hospital Course - Lab Results Lab Results: Micro Results 11/01/16 17:29 Blood-Venous Blood Culture - Final NO GROWTH AFTER 5 DAYS 11/01/16 17:29 Blood-Venous Gram Stain - Final TEST NOT PERFORMED 11/01/16 17:29 Blood-Venous Blood Culture - Final NO GROWTH AFTER 5 DAYS 11/01/16 17:29 Blood-Venous Gram Stain - Final TEST NOT PERFORMED 11/01/16 17:30 Trachasp Gram Stain - Final 11/01/16 17:30 Trachasp Sputum Culture - Final NORMAL ORAL CAMRYN 10/28/16 21:00 Blood-During Dialysis Blood Culture - Final NO GROWTH AFTER 5 DAYS 10/28/16 21:00 Blood-During Dialysis Gram Stain - Final 10/28/16 21:30 Blood-During Dialysis Blood Culture - Final NO GROWTH AFTER 5 DAYS 10/28/16 21:30 Blood-During Dialysis Gram Stain - Final TEST NOT PERFORMED 10/26/16 09:10 Blood Blood Culture - Final NO GROWTH AFTER 5 DAYS 10/26/16 09:10 Blood Gram Stain - Final TEST NOT PERFORMED 10/26/16 08:35 Blood S.aureus & Coag-Neg Staph PNA FISH - Final 10/26/16 08:35 Blood Blood Culture - Final Coagulase Neg Staphylococcus 10/26/16 08:35 Blood Gram Stain - Final 10/26/16 08:32 Sputum Gram Stain - Final 10/26/16 08:32 Sputum Sputum Culture - Final No growth. 10/26/16 08:32 Urine,Catheterized Urine Culture - Final No Growth (<1,000 CFU/ML) 10/21/16 14:00 Blood Blood Culture - Final Streptococcus Pneumoniae 10/21/16 14:00 Blood Gram Stain - Final 10/21/16 Unknown Trachasp Gram Stain - Final 10/21/16 Unknown Trachasp Sputum Culture - Final NORMAL ORAL CAMRYN 10/21/16 Unknown Naris MRSA Culture (Admit) - Final MRSA NOT DETECTED Most Recent Lab Values WBC 6.2 K/uL (4.8-10.8) 11/25/16 06:55 RBC 2.58 Mil/uL (4.40-5.90) L 11/25/16 06:55 Hgb 8.0 g/dL (12.0-18.0) L 11/25/16 06:55 Hct 24.3 % (35.0-51.0) L 11/25/16 06:55 MCV 94.3 fL (80.0-94.0) H 11/25/16 06:55 MCH 31.0 pg (27.0-31.0) 11/25/16 06:55 MCHC 32.9 g/dL (33.0-37.0) L 11/25/16 06:55 RDW 17.0 % (11.5-14.5) H 11/25/16 06:55 Plt Count 138 K/uL (130-400) 11/25/16 06:55 MPV 9.0 fL (7.2-11.7) 11/25/16 06:55 Neut % (Auto) 62.8 % (50.0-75.0) 11/25/16 06:55 Lymph % (Auto) 17.0 % (20.0-40.0) L 11/25/16 06:55 [place] % (Auto) 9.9 % (0.0-10.0) 11/25/16 06:55 Eos % (Auto) 9.5 % (0.0-4.0) H 11/25/16 06:55 Baso % (Auto) 0.8 % (0.0-2.0) 11/25/16 06:55 Neut # 3.9 K/uL (1.8-7.0) 11/25/16 06:55 Lymph # 1.1 K/uL (1.0-4.3) 11/25/16 06:55 [place] # 0.6 K/uL (0.0-0.8) 11/25/16 06:55 Eos # 0.6 K/uL (0.0-0.7) 11/25/16 06:55 Baso # 0.0 K/uL (0.0-0.2) 11/25/16 06:55 Neutrophils % (Manual) 74 % (50-75) 11/14/16 07:00 Band Neutrophils % 7 % (0-2) H 11/13/16 10:46 Lymphocytes % (Manual) 12 % (20-40) L 11/14/16 07:00 Reactive Lymphs % 2 % (0-0) H 11/14/16 07:00 Monocytes % (Manual) 3 % (0-10) 11/14/16 07:00 Eosinophils % (Manual) 8 % (0-4) H 11/14/16 07:00 Basophils % (Manual) 1 % (0-2) 11/14/16 07:00 Metamyelocytes % 1 % (0-0) H 10/29/16 06:22 Myelocytes % 3 % (0-0) H 10/21/16 18:06 Nucleated RBC % 1 % (0-0) H 10/28/16 06:37 Toxic Granulation Present 10/27/16 06:26 Dohle Bodies Present 10/21/16 11:04 Platelet Estimate Decreased (NORMAL) L 11/14/16 07:00 Large Platelets Present 11/12/16 06:10 Giant Platelets Present 11/05/16 06:32 Polychromasia Slight 11/08/16 06:31 Hypochromasia (manual) Slight 11/14/16 07:00 Poikilocytosis (manual Slight 11/14/16 07:00 Basophilic Stippling Slight 11/03/16 06:22 Anisocytosis (manual) Slight 11/14/16 07:00 Macrocytosis (manual) Slight 11/08/16 06:31 Target Cells Slight 11/14/16 07:00 Tear Drop Cells Slight 11/03/16 06:22 Ovalocytes Slight 11/12/16 06:10 [place] Cells Slight 11/11/16 06:27 Retic Count 1.4 % (0.5-1.5) D 11/21/16 11:20 PT 17.7 SECONDS (9.7-12.2) H 10/29/16 06:22 INR 1.6 10/29/16 06:22 APTT 30 SECONDS (21-34) 10/29/16 06:22 Plt Function Assay 52 K/uL 10/30/16 04:49 Puncture Site Rr 11/05/16 05:29 pCO2 39 mm/Hg (35-45) 11/05/16 05:29 pO2 50 mm/Hg (80-100) L 11/05/16 05:29 HCO3 27.1 mmol/L (21-28) 11/05/16 05:29 ABG pH 7.45 (7.35-7.45) 11/05/16 05:29 ABG Total CO2 28.3 mmol/L (22-28) H 11/05/16 05:29 ABG O2 Saturation 91.8 % (95-98) L 11/05/16 05:29 ABG Base Excess 2.9 mmol/L (-2.0-3.0) 11/05/16 05:29 ABG Hemoglobin 8.4 g/dL (11.7-17.4) L 11/05/16 05:29 ABG Carboxyhemoglobin 2.8 % (0.5-1.5) H 11/05/16 05:29 POC ABG HHb (Measured) 7.9 % (0.0-5.0) H 11/05/16 05:29 ABG Methemoglobin 0.9 % (0.0-3.0) 11/05/16 05:29 Nicolas Test Pos 11/05/16 05:29 ABG Potassium 4.4 mmol/L (3.6-5.2) 10/22/16 11:44 VBG pH 7.36 (7.32-7.43) 10/21/16 11:33 VBG pCO2 24 mmHg (40-60) L 10/21/16 11:33 VBG HCO3 16.6 mmol/L 10/21/16 11:33 VBG Total CO2 14.3 mmol/L (22-28) L 10/21/16 11:33 VBG O2 Sat (Calc) 80.7 % (40-65) H 10/21/16 11:33 VBG Base Excess -9.9 mmol/L (0.0-2.0) L 10/21/16 11:33 VBG Potassium 2.7 mmol/L (3.6-5.2) L 10/21/16 11:33 A-a O2 Difference 258.0 mm/Hg 11/05/16 05:29 Respiratory Index 5.2 11/05/16 05:29 Hgb O2 Saturation 88.4 % (95.0-98.0) L 11/05/16 05:29 Sodium 137.0 mmol/l (132-148) 10/22/16 11:44 Chloride 105.0 mmol/L (98-107) 10/22/16 11:44 Glucose 90 mg/dl (75-110) 10/22/16 11:44 Lactate 2.1 mmol/L (0.7-2.1) 10/22/16 11:44 Liter Flow 40.0 10/21/16 11:33 Vent Mode Prvc 11/04/16 05:28 Mechanical Rate 24 11/04/16 05:28 FiO2 50.0 % 11/05/16 05:29 Tidal Volume 400 11/04/16 05:28 PEEP 5 11/04/16 05:28 Crit Value Called To Swathi flores agricultural engineer 10/28/16 06:00 Crit Value Called By Iqra mendez rt 10/28/16 06:00 Crit Value Read Back Y 10/28/16 06:00 Blood Gas Notified Time 625 10/28/16 06:00 Sodium 140 mmol/L (132-148) 11/25/16 06:55 Potassium 3.5 mmol/L (3.6-5.2) L 11/25/16 06:55 Chloride 108 mmol/L (98-107) H 11/25/16 06:55 Carbon Dioxide 20 mmol/L (22-30) L 11/25/16 06:55 Anion Gap 16 (10-20) 11/25/16 06:55 BUN 16 mg/dL (9-20) 11/25/16 06:55 Creatinine 1.0 MG/DL (0.8-1.5) 11/25/16 06:55 Est GFR ( Amer) > 60 11/25/16 06:55 Est GFR (Non-Af Amer) > 60 11/25/16 06:55 POC Glucose (mg/dL) 89 mg/dL (65-110) 11/23/16 06:38 Random Glucose 78 mg/dL (75-110) 11/25/16 06:55 Calcium 8.3 mg/dl (8.6-10.4) L 11/25/16 06:55 Phosphorus 4.4 mg/dL (2.5-4.5) 11/25/16 06:55 Magnesium 1.3 mg/dL (1.6-2.3) L 11/25/16 06:55 Iron 12 ug/dL (49-181) L 11/20/16 14:12 TIBC 218 ug/dL (250-450) L 11/20/16 14:12 % Saturation 6 (20-55) L 11/20/16 14:12 Ferritin 929.0 ng/mL 11/20/16 14:12 Total Bilirubin 1.0 mg/dL (0.2-1.3) 11/25/16 06:55 AST 39 U/L (17-59) 11/25/16 06:55 ALT 39 U/L (21-72) 11/25/16 06:55 Alkaline Phosphatase 160 U/L (38-126) H 11/25/16 06:55 Ammonia 51 umol/L (9-33) H 10/22/16 06:31 Total Creatine Kinase 484 U/L (55-170) H 10/23/16 17:41 Troponin I 0.0150 ng/mL (0.00-0.120) 10/21/16 11:04 NT-Pro-B Natriuret Pep 9370 pg/mL (0-450) H 10/26/16 11:59 Total Protein 6.8 g/dL (6.3-8.3) 11/25/16 06:55 Albumin 2.7 g/dL (3.5-5.0) L 11/25/16 06:55 Globulin 4.2 gm/dL (2.2-3.9) H 11/25/16 06:55 Albumin/Globulin Ratio 0.6 (1.0-2.1) L 11/25/16 06:55 Vitamin B12 969 pg/mL (239-931) H 11/21/16 11:20 RBC Folate 1071 ng/mL RBC (>280) 11/21/16 11:20 Procalcitonin 77.01 NG/ML (0.19-0.49) H 10/27/16 11:10 Arterial Blood Potassium 4.4 mmol/L (3.6-5.2) 10/22/16 11:44 Venous Blood Potassium 2.7 mmol/L (3.6-5.2) L 10/21/16 11:33 Urine Color Bree (YELLOW) 10/21/16 12:14 Urine Clarity Turbid (Clear) 10/21/16 12:14 Urine pH 5.0 (5.0-8.0) 10/21/16 12:14 Ur Specific [place] 1.024 (1.003-1.030) 10/21/16 12:14 Urine Protein 2+ mg/dL (NEGATIVE) H 10/21/16 12:14 Urine Glucose (UA) Normal mg/dL (Normal) 10/21/16 12:14 Urine Ketones Negative mg/dL (NEGATIVE) 10/21/16 12:14 Urine Blood 2+ (NEGATIVE) H 10/21/16 12:14 Urine Nitrate Negative (NEGATIVE) 10/21/16 12:14 Urine Bilirubin 1+ (NEGATIVE) H 10/21/16 12:14 Urine Urobilinogen 2.0 mg/dL (0.2-1.0) 10/21/16 12:14 Ur Leukocyte Esterase Neg S[place]eth[place]/uL (Negative) 10/21/16 12:14 Urine WBC (Auto) 6 /hpf (0-5) H 10/21/16 12:14 Urine RBC (Auto) 70 /hpf (0-3) H 10/21/16 12:14 Ur Squamous Epith Cells 8 /hpf (0-5) H 10/21/16 12:14 Urine Bacteria Many (<OCC) H 10/21/16 12:14 Hyaline Casts >20 /lpf (0-2) H 10/21/16 12:14 Urine Collection Time 24 HRS 11/16/16 07:10 Urine Total Volume 990 mL 11/16/16 07:10 Creatinine Clearance 36.0 mL/min (107-139) L 11/16/16 07:10 Ur Protein 24 Hr Calc 217.8 mg/24hr (42-225) 11/16/16 07:10 Stool Occult Blood Positive (NEGATIVE) H 11/11/16 18:03 Vancomycin Peak 27.7 ug/mL (30.0-40.0) L 10/26/16 18:38 Vancomycin Trough 16.4 ug/mL (5.0-10.0) H 10/26/16 14:14 Random Vancomycin 10.70 ug/mL 11/02/16 06:02 Urine Opiates Screen Negative (NEGATIVE) 10/21/16 12:14 Urine Methadone Screen Negative (NEGATIVE) 10/21/16 12:14 Ur Barbiturates Screen Negative (NEGATIVE) 10/21/16 12:14 Ur Phencyclidine Scrn Negative (NEGATIVE) 10/21/16 12:14 Ur Amphetamines Screen Negative (NEGATIVE) 10/21/16 12:14 U Benzodiazepines Scrn Negative (NEGATIVE) 10/21/16 12:14 U Oth Cocaine Metabols Negative (NEGATIVE) 10/21/16 12:14 U Cannabinoids Screen Negative (NEGATIVE) 10/21/16 12:14 Alcohol, Quantitative < 10 mg/dl (0-10) 10/21/16 11:04 Heparin-induced Plt Ab Negative (Negative) 10/30/16 04:58 C. difficile Ag & Toxin Negative (NEGATIVE) 11/03/16 14:50 Hepatitis A IgM Ab Negative (NEGATIVE) 10/22/16 06:31 Hep Bs Antigen Negative (NEGATIVE) 10/22/16 06:31 Hep B Core IgM Ab Negative (NEGATIVE) 10/22/16 06:31 Hepatitis C Antibody Negative (NEGATIVE) 10/22/16 06:31 HIV 1&2 Antibody Screen Negative (NEGATIVE) 10/22/16 06:31 Blood Type B POSITIVE 11/23/16 12:23 Blood Type Confirm B POSITIVE 10/23/16 10:31 Antibody Screen Negative 11/23/16 12:23 - Hospital Course Hospital Course: This is a 46 year old male who came to the ER on 10/21/2016 with reports of coughing, shortness of breath, as well as fever. The patient had a history of very heavy drinking. When in the ER his respirations declined and he was intubated in the ER and then moved to the ICU where he was for a prolonged period of time on mechincal ventilation. He was found to have sepsis secondary to pneumonia. This was further complicated from a left pleural effusions as well as renal failure. His renal failure required the patient to receiving HD temporarily via a permacath. Eventually his renal function did improve and by his last week he did not require further HD During this time he was treated for alcohol withdraw as well as IV abx to reat the pneumonia / sepsis. He had positive blood cultures for Coag Neg Staph as well as Strep Pneumonia and required IV abx. He also had a pleural effusion as well and required a chest tube for some time to facilitate the draining. With the help of HD to remove ecessive fluid as well as the chest tube he was eventually extubated successfully. He was then in the hospital for almost another week due to weakness. On the last week he did not require medication for alcohol with drawl however we did always give him education about further drinking problems. He has also been anemic as well - and required blood transfusion Discharge Exam - Head Exam Head Exam: ATRAUMATIC, NORMOCEPHALIC - Respiratory Exam Respiratory Exam: NORMAL BREATHING PATTERN, UNREMARKABLE - Cardiovascular Exam Cardiovascular Exam: REGULAR RHYTHM - GI/Abdominal Exam GI & Abdominal Exam: Normal Bowel Sounds, Soft - Neurological Exam Neurological exam: Abnormal Gait, Alert, CN II-XII Intact, Oriented x3 - Psychiatric Exam Psychiatric exam: Depressed, Flat Affect - Skin Skin Exam: Normal Color, Warm Discharge Plan - Follow Up Plan Condition: SERIOUS Disposition: HOME/ ROUTINE Instructions: Heart Healthy Diet (DC), Alcohol Intoxication (DC), Abuse of Alcohol (DC), Pneumonia (DC) Additional Instructions: Please discharge patient home, as per Dr. Marrero. Patient is to follow up at [facility] within 1 week. If symptoms worsen, patient is to return to the hospital for further evaluation and treatment. Patient is not being given any medication prescriptions, on a prescription for a walking cane upon discharge. Patient instructed about the dangers of continuing to drink like he was prior to his hospitalization and the need for him to stop entirely. Patient states he understands and agrees. Start taking over the counter iron supplementation. Patient takes no home medications. Patient given a script for a walking cane upon discharge. NO ALCOHOL Referrals: [facility] [Outside]
[2016-11-30] MEDS ORDERED: Epoetin Alfa 10,000 unit/ml Dialysis SC SCH (10:00)
== END 2016-11-25 18:20 | disposition home or self-care (01) | DRG 584 ==
LOC: C.ER 10:20 → C.9I 12:07 → C.6T 11-18 06:10
PROVIDERS: ADMIT Hospitalist; ATTEND Hospitalist
PROC: 5A1955Z Respiratory Ventilation, Greater than 96 Consecutive Hours (ICD-10-PCS; principal; 2016-10-21)
PROC: HZ2ZZZZ Detoxification Services for Substance Abuse Treatment (ICD-10-PCS; 2016-10-21)
PROC: 3E043XZ Introduction of Vasopressor into Central Vein, Percutaneous Approach (ICD-10-PCS; 2016-10-21)
PROC: 0BH17EZ Insertion of Endotracheal Airway into Trachea, Via Natural or Artificial Opening (ICD-10-PCS; 2016-10-21)
PROC: 5A1D60Z (ICD-10-PCS; 2016-10-23)
PROC: 30233N1 Transfusion of Nonautologous Red Blood Cells into Peripheral Vein, Percutaneous Approach (ICD-10-PCS; 2016-10-23)
PROC: 02HV33Z Insertion of Infusion Device into Superior Vena Cava, Percutaneous Approach (ICD-10-PCS; 2016-10-23)
PROC: B548ZZA Ultrasonography of Superior Vena Cava, Guidance (ICD-10-PCS; 2016-10-23)
PROC: 30233R1 Transfusion of Nonautologous Platelets into Peripheral Vein, Percutaneous Approach (ICD-10-PCS; 2016-10-23)
PROC: 0W9B30Z Drainage of Left Pleural Cavity with Drainage Device, Percutaneous Approach (ICD-10-PCS; 2016-10-29)
PROC: 02HV33Z Insertion of Infusion Device into Superior Vena Cava, Percutaneous Approach (ICD-10-PCS; 2016-10-30)
PROC: B5181ZA Fluoroscopy of Superior Vena Cava using Low Osmolar Contrast, Guidance (ICD-10-PCS; 2016-10-30)
PROC: 0WP8X0Z Removal of Drainage Device from Chest Wall, External Approach (ICD-10-PCS; 2016-11-12)
DX: A40.3 Sepsis due to Streptococcus pneumoniae (principal); R65.21 Severe sepsis with septic shock; J96.01 Acute respiratory failure with hypoxia; I46.9 Cardiac arrest, cause unspecified; N17.0 Acute kidney failure with tubular necrosis; J13 Pneumonia due to Streptococcus pneumoniae; J90 Pleural effusion, not elsewhere classified; J81.0 Acute pulmonary edema; F10.231 Alcohol dependence with withdrawal delirium; K70.11 Alcoholic hepatitis with ascites; J93.83 Other pneumothorax; D69.59 Other secondary thrombocytopenia; E87.2 Acidosis; G40.409 Other generalized epilepsy and epileptic syndromes, not intractable, without status epilepticus; K70.31 Alcoholic cirrhosis of liver with ascites; E87.0 Hyperosmolality and hypernatremia; E87.6 Hypokalemia; L40.9 Psoriasis, unspecified; R74.0 Nonspecific elevation of levels of transaminase and lactic acid dehydrogenase [LDH]; F32.9 Major depressive disorder, single episode, unspecified; F41.9 Anxiety disorder, unspecified; B35.6 Tinea cruris; E61.1 Iron deficiency; E86.0 Dehydration; Z59.0 Homelessness; Z79.2 Long term (current) use of antibiotics; Z87.891 Personal history of nicotine dependence

== ENCOUNTER 2016-11-30 13:38 | Inpatient (IN) | payer SELFPAY ==
[2016-11-30 14:56] LABS: BASO # 0.1 K/uL (0.0-0.2); BASO % 1.1 % (0.0-2.0); EOS # 0.3 K/uL (0.0-0.7); EOS % 3.2 % (0.0-4.0); HEMATOCRIT 23.6 % (35.0-51.0); LYMPH # 1.3 K/uL (1.0-4.3); LYMPH % 15.8 % (20.0-40.0); MEAN CELL VOLUME 92.8 fL (80.0-94.0); MEAN CORPUSCULAR HEMOGLOBIN 30.7 pg (27.0-31.0); MEAN CORPUSCULAR HGB CONC 33.1 g/dL (33.0-37.0); MEAN PLATELET VOLUME 8.9 fL (7.2-11.7); MONO # 0.6 K/uL (0.0-0.8); NRBC % 0.1 % (0.0-2.0)
--- NOTE | 2016-11-30 14:59 | RAD ---
HISTORY: SOB COMPARISON: Comparison made with chest radiograph 11/13/2016 TECHNIQUE: Chest PA and lateral FINDINGS: Interval removal right IJ dialysis catheter and left-sided PICC line. . LUNGS: Poor inspiration with low lung volumes, crowded bronchovascular markings and mild bibasilar residual atelectasis and or infiltrates left greater than right. Central pulmonary vasculature appears less congested. Small residual effusions of left larger than right may be present. PLEURA: As above. No pneumothorax apparent. CARDIOVASCULAR: Heart size is unchanged OSSEOUS STRUCTURES: No significant abnormalities. VISUALIZED UPPER ABDOMEN: Normal. OTHER FINDINGS: None. IMPRESSION: Poor inspiration with low lung volumes, crowded bronchovascular markings and mild bibasilar residual atelectasis and/or infiltrates left greater than right. Central pulmonary vasculature appears less congested. Small residual effusions of left larger than right may be present.
[2016-11-30 15:09] LABS: ALB/GLOB RATIO 0.7 (1.0-2.1); ALKALINE PHOSPHATASE 168 U/L (38-126); ALT/SGPT 64 U/L (21-72); AST/SGOT 45 U/L (17-59); BILIRUBIN,TOTAL 0.8 mg/dL (0.2-1.3); BLOOD UREA NITROGEN 10 mg/dL (9-20); CALCIUM 8.7 mg/dl (8.6-10.4); CARBON DIOXIDE 21 mmol/L (22-30); CHLORIDE 109 mmol/L (98-107); GFR AFRICAN-AMERICAN > 60; GLUCOSE,RANDOM 78 mg/dL (75-110); POTASSIUM 3.3 mmol/L (3.6-5.2); SODIUM 140 mmol/L (132-148); TOTAL PROTEIN 7.2 g/dL (6.3-8.3)
[2016-11-30 15:18] LABS: INR 1.5
[2016-11-30 15:22] LABS: ALCOHOL SERUM < 10 mg/dl (0-10)
--- NOTE | 2016-11-30 15:29 | C.PDOC ---
History Of Present Illness 46 y/o male who presents to the ED complaining of worsening bilateral leg edema , right worse than left, since discharge 4 days ago. Was hospitalized with a long complicated inpatient course for pneumonia, including pleural effusion, renal failure requiring dialysis, and profound weakness. Claims he has not been drinking alcohol since discharge. PMD: Unknown Time Seen by Provider: 11/30/16 14:33 Chief Complaint (Nursing): Lower Extremity Problem/Injury History Per: Patient History/Exam Limitations: no limitations Onset/Duration Of Symptoms: Days (x 4) Current Symptoms Are (Timing): Still Present Past Medical History Reviewed: Historical Data, Nursing Documentation, Vital Signs Vital Signs: Last Vital Signs Temp 98.1 F 11/30/16 13:46 Pulse 82 11/30/16 13:46 Resp 20 11/30/16 13:46 BP 134/92 H 11/30/16 13:46 Pulse Ox 100 11/30/16 15:34 - Medical History PMH: HTN - [facility] DETOXIFICATION SERVICES FOR SUBSTANCE ABUSE TREATMENT (10/21/16) DRAINAGE OF L PLEURAL CAV WITH DRAIN DEV, PERC APPROACH (10/21/16) FLUOROSCOPY OF SUP VENA CAVA USING L OSM CONTRAST, GUIDANCE (10/21/16) INSERTION OF ENDOTRACHEAL AIRWAY INTO TRACHEA, VIA OPENING (10/21/16) INSERTION OF INFUSION DEV INTO SUP VENA CAVA, PERC APPROACH (10/21/16) INTRODUCTION OF VASOPRESSOR INTO CENTRAL VEIN, PERC APPROACH (10/21/16) PERFORMANCE OF URINARY FILTRATION, MULTIPLE (10/21/16) REMOVAL OF DRAINAGE DEVICE FROM CHEST WALL, LIFTER DRIVER APPROACH (10/21/16) RESPIRATORY VENTILATION, GREATER THAN 96 CONSECUTIVE HOURS (10/21/16) TRANSFUSE NONAUT PLATELETS IN PERIPH VEIN, PERC (10/21/16) TRANSFUSE NONAUT RED BLOOD CELLS IN PERIPH VEIN, PERC (10/21/16) ULTRASONOGRAPHY OF SUPERIOR VENA CAVA, GUIDANCE (10/21/16) Family History: States: Unknown Family Hx - Social History Hx Alcohol Use: Yes (SOBER 1.5 MONTH) Hx Substance Use: No - Immunization History Hx Tetanus Toxoid Vaccination: Yes Hx Influenza Vaccination: No Hx Pneumococcal Vaccination: No Review Of Systems Except As Marked, All Systems Reviewed And Found Negative. Musculoskeletal: Positive for: Other (Bilateral leg edema, right worse than left ) Physical Exam - Physical Exam Appears: Well, Non-toxic, No Acute Distress Skin: Normal Color, Warm, Dry, No Rash Head: Atraumatic, Normacephalic Eye(s): bilateral: Normal Inspection, PERRL, EOMI Oral Mucosa: Moist Neck: Normal ROM, Supple Chest: Symmetrical Cardiovascular: Rhythm Regular, No Murmur Respiratory: Normal Breath Sounds (Lungs clear to auscultation), No Accessory Muscle Use Gastrointestinal/Abdominal: Normal Exam, Soft, No Tenderness Extremity: Normal ROM, Pedal Edema (Pitting edema. 4/4 on the right, 3/4 on the left.) Neurological/Psych: Oriented x3, Normal Speech, Normal Motor, Other (Awake and alert) Gait: Steady ED Course And Treatment - Laboratory Results Result Diagrams: 11/30/16 14:49 11/30/16 14:49 Lab Interpretation: Abnormal (bnp elevated, d-dimer 2700 H, trop neg.) ECG: Interpreted By Co ECG Rhythm: Sinus Rhythm ECG Interpretation: Normal Rate From EC O2 Sat by Pulse Oximetry: 100 (RA) Pulse Ox Interpretation: Normal - Radiology CXR: Interpreted by Me CXR Interpretation: Yes: Heart Size (+ megaly), Other (+ mild CHF, + small L pleural effusion) - Other Rad b/l leg US venous doppler X-Ray: Read By Radiologist (+ common femoral, posterior tibial DVT) Progress Note: 14:43. Initial Plan: Ordered blood work, urinalysis, CXR, EKG, and US Venous Duplex Low Ext Bi. Started on Lasix. Pending reevaluation and disposition. 1630: lovenox SQ Reevaluation Time: 16:29 Reassessment Condition: Improved - Physician Consult Information Outcome Of Conversation: 1450 and 1630: d/w Hospitalists- ok to Obs Medical Decision Making Medical Decision Making: Time: 14:57 Chest X-Ray: IMPRESSION: Poor inspiration with low lung volumes, crowded bronchovascular markings and mild bibasilar residual atelectasis and/or infiltrates left greater than right. Central pulmonary vasculature appears less congested. Small residual effusions of left larger than right may be present. new R DVT's, LOW susp of PE as normal HR and 100 sat on RA, same tx either way consider CTA/VQ scan as inpt INR 1.5 may be related to poor synthetic function/lower albumin, chronic liver damage Disposition Doctor Will See Patient In The: Hospital Counseled Patient/Family Regarding: Studies Performed, Diagnosis - Disposition Disposition: HOSPITALIZED Disposition Time: 16:36 Condition: GOOD Forms: [facility] (Slovak) - Clinical Impression Clinical Impression: DVT (deep venous thrombosis), Leg edema - Scribe Statement The provider has reviewed the documentation as recorded by the Scribe Meghna Jordan All medical record entries made by the Myraibe were at my direction and personally dictated by me. I have reviewed the chart and agree that the record accurately reflects my personal performance of the history, physical exam, medical decision making, and the department course for this patient. I have also personally directed, reviewed, and agree with the discharge instructions and disposition.
[2016-11-30 16:21] LABS: RBC URINE 1 /hpf (0-3); URINE BACTERIA RARE (<OCC); URINE BILIRUBIN NEGATIVE (NEGATIVE); URINE BLOOD NEGATIVE (NEGATIVE); URINE COLOR Yellow (YELLOW); URINE GLUCOSE (UA) NORMAL (Normal); URINE KETONE NEGATIVE (NEGATIVE); URINE LEUKOCYTE ESTERASE NEG Leu/uL (Negative); URINE PROTEIN NEGATIVE (NEGATIVE); URINE UROBILINOGEN NORMAL mg/dL (0.2-1.0); WBC URINE 4 /hpf (0-5)
[2016-11-30] MEDS ORDERED: Enoxaparin 40 mg Syringe SC STA (16:27)
[2016-11-30] MEDS ORDERED: Enoxaparin 80 mg Syringe ONE (16:35)
--- NOTE | 2016-11-30 17:25 | CP.PCM.HP ---
<Arden Marley - Last Filed: 11/30/16 17:45> History of Present Illness - History of Present Illness History of Present Illness: This is a 46 yo male with past medical hx of alcoholism, pneumonia, sepsis, respiratory failure, requiring intubation, renal failure requiring temp HD presenting to ER with chief complaint of leg swelling. Patient was recently discharged from [facility]. Patient has been experiencing leg swelling B/L for 3 days, right greater than left. There is also some associated right lower ext pain. It has been staying the same, not getting better or worse. He has not taken any meds to make it better. He denies past DVT/PE. Recent hospitalization as noted above. No trauma or recent surgery. Denies fevers, chills, chest pain, shortness of breath, bleeding. PMH: alcoholism (last drink 1 1/2 months ago), pneumonia, sepsis, resp failure, renal failure PSH: None Allergies: NKDA FH: Father had heat stroke Social hx: Former smoker. Quit 6 months ago. Former alcoholic. Drank 10 cans beer per day. Sober for 1 month. Denies drug use. Born in [facility]. Lives in fdc. Present on Admission - Present on Admission Any Indicators Present on Admission: No History of DVT/PE: No History of Uncontrolled Diabetes: No Urinary Catheter: No Decubitus Ulcer Present: No Review of Systems - Review of Systems All systems: reviewed and no additional remarkable complaints except Review of Systems: negative except as stated in HPI Past Patient History - Infectious Disease Hx of Infectious Diseases: None - Tetanus Immunizations Tetanus Immunization: Unknown - Past Medical History & Family History Past Medical History?: Yes Past Family History: Reviewed and not pertinent - Past Social History Smoking Status: Former Smoker Chewing Tobacco Use: No Cigar Use: No Alcohol: None Drugs: Denies Home Situation {Lives}: Homeless Domestic Violence: Negative - CARDIAC Hx Hypertension: Yes - RENAL Date of Last Dialysis Treatment: 11/23/16 Other/Comment: "I HAD DIALYSIS BECAUSE THEY NEEDED TO CLEAN OUT MY LUNGS FROM THE PNEUMONIA." - HEMATOLOGICAL/ONCOLOGICAL Other/Comment: "FATTY LIVER" - INTEGUMENTARY Hx Psoriasis: Yes - MUSCULOSKELETAL/RHEUMATOLOGICAL Hx Falls: No - PSYCHIATRIC Hx Substance Use: No - SURGICAL HISTORY Hx Surgeries: No - ANESTHESIA Hx Anesthesia: No Meds Allergies/Adverse Reactions: Allergies Allergy/AdvReac Type Severity Reaction Status Date / Time No Known Allergies Allergy Verified 11/30/16 13:54 Physical Exam - Constitutional Appears: Non-toxic, No Acute Distress - Head Exam Head Exam: ATRAUMATIC, NORMAL INSPECTION, NORMOCEPHALIC - Eye Exam Eye Exam: EOMI - ENT Exam ENT Exam: Mucous Membranes Moist - Neck Exam Neck exam: Positive for: Full Rom, Normal Inspection - Respiratory Exam Respiratory Exam: NORMAL BREATHING PATTERN. absent: Respiratory Distress - Cardiovascular Exam Cardiovascular Exam: +S1, +S2 - GI/Abdominal Exam GI & Abdominal Exam: Normal Bowel Sounds, Soft. absent: Tenderness - Extremities Exam Extremities exam: Positive for: calf tenderness, pedal edema, tenderness. Negative for: full ROM, normal inspection - Neurological Exam Neurological exam: Alert, Oriented x3 - Psychiatric Exam Psychiatric exam: Normal Affect, Normal Mood - Skin Skin Exam: Dry, Intact, Normal Color, Warm Results - Vital Signs Recent Vital Signs: Last Vital Signs Temp 98.1 F 11/30/16 13:46 Pulse 77 11/30/16 16:40 Resp 15 11/30/16 16:40 BP 130/89 11/30/16 16:40 Pulse Ox 100 11/30/16 16:40 - Labs Result Diagrams: 11/30/16 14:49 11/30/16 14:49 Assessment & Plan - Assessment and Plan (Free Text) Assessment: This is a 46 yo male with pmh alcoholism, sepsis, pna, resp failure, kidney failure presenting with leg swelling x 3 days 1. Acute DVT -DVT confirmed right LE common femoral -lovenox 80 q 12 -CT angio pending -heme/onc consult. recs appreciated -contraindications to scds -ekg shows NSR -repeat labs in am 2. Hypokalemia -will give 1 K rider -cont to monitor 3. Anemia -heme/onc consult -consent for blood obtained -will order 1 unit 4. cough -will order mucinex -promethazine with codeine -albuterol q 6 prn 5. GI/DVT ppx -protonix daily -contraindications to scds dw Dr. Cisneros <Chlesey Cisneros V - Last Filed: 11/30/16 23:32> Results - Vital Signs Recent Vital Signs: Last Vital Signs Temp 98.8 F 11/30/16 22:00 Pulse 80 11/30/16 22:00 Resp 20 11/30/16 22:00 BP 133/81 11/30/16 22:00 Pulse Ox 96 11/30/16 22:00 - Labs Result Diagrams: 11/30/16 14:49 11/30/16 14:49 Labs: Laboratory Results - last 24 hr 11/30/16 20:20 Blood Type B POSITIVE Antibody Screen Negative Attending/Attestation - Attestation I have personally seen and examined this patient.: Yes I have fully participated in the care of the patient.: Yes I have reviewed all pertinent clinical information: Yes Notes (Text): Patient seen, examined, and case discussed with day-time resident. patient seen in Bed 14 in the ED on 11/30/16 at approximately 5:14PM. patient recently discharged from the hospital about 3-4 days ago for extended hospital stay for pmh alcoholism, sepsis, pna, resp failure requiring intubation, kidney failure; who presents acutely for noticeable presenting with right leg swelling x 3 days. Patient was in the ICU for extended period of time, patient is overweight, no hx of cancer, no trauma to the legs, no recent falls. In the ED, patient has confirmed DVT over right common femoral. Patient last admission with anemia requiring blood transfusion and noted thrombocytopenia which normalized. Patient received Lovenox 80mg subqX1 for treatment for DVT. Patient lives in a fdc and cannot afford NOAC such as Eliquis/Xarelto. Patient denies shortness of breathe, WILLIAM, tachycardia, EKG: NSR, low suspicion for PE. Patient ordered for CT angio PE given kidney function had normalized prior to discharge last admission which is negative for acute PE. Patient is consented for 1 unit of PRBC if needed given hgb: 7.8. Heme-onc consulted given anemia, acute dvt. Assessment/Plan 1. Acute DVT - DVT confirmed right LE common femoral by ultrasound prelim; awaiting official report - r/o PE-->ordered for CT angio r/o PE (Wells criteria: +immobility) -lovenox 80mg q 12 -heme/onc (Dr. Anisha Davis) consult. recs appreciated -contraindications to scds secondary to acute DVT -ekg shows NSR -repeat labs in am 2. Hypokalemia -will give 1 K rider to replete K+ and monitor Mg2_ -cont to monitor 3. Anemia -heme/onc consult -consent for blood obtained -will order 1 unit as standby while patient is on therapuetic Lovenox to cover for DVT 4. Cough -will order mucinex 600mg PO bid -promethazine with codeine 5ml PO Q 4hour PRn -albuterol q 6 prn shortness of breathe -CT chest angio pe protocol r/o PE 5. GI/DVT ppx -protonix 40mg daily for GI ppx -contraindications to scds secondary to acute DVT -therapuetic Lovenox -activity: bedrest Disposition: patient lives in fdc; unlikely to afford NOAC; f/u heme-onc eval for affordable option
[2016-11-30] MEDS: guaiFENesin 600 mg ER Tab PO SCH (18:49)
[2016-11-30] MEDS ORDERED: Iodixanol 320 MG/ML 100 ML BOTTLE IV ONE (19:22)
--- NOTE | 2016-11-30 21:29 | CT ---
EXAM: CT Angiography Chest With Intravenous Contrast EXAM DATE/TIME: Exam ordered 11/30/2016 5:41 PM CLINICAL HISTORY: 46 years old, male; Condition or disease; Lung condition and disease; Pulmonary congestion and other: Dvt. Leg edema; Additional info: Confirmed dvt R/O pe TECHNIQUE: Axial computed tomographic angiography images of the chest with intravenous contrast using pulmonary embolism protocol. All CT scans at this facility use one or more dose reduction techniques, viz.: automated exposure control; ma/kV adjustment per patient size (including targeted exams where dose is matched to indication; i.e. head); or iterative reconstruction technique. MIP reconstructed images were created and reviewed. Coronal and sagittal reformatted images were created and reviewed. CONTRAST: 100 mL of VISIPAQUE 320 administered intravenously. COMPARISON: No relevant prior studies available. FINDINGS: Pulmonary arteries: Unremarkable. No pulmonary embolism. Aorta: No acute findings. No thoracic aortic aneurysm. Lungs: Hazy groundglass density is noted diffusely in the right upper lobe. Subsegmental atelectasis is noted in the right middle lobe. Subsegmental atelectasis noted in the right lower lobe. Segmental atelectasis is noted in the left lower lobe. No mass. Pleural space: There's a small left pleural effusion. No pneumothorax. Heart: Unremarkable. No cardiomegaly. No significant pericardial effusion. No evidence of RV dysfunction. Bones/joints: No acute fracture. No dislocation. Soft tissues: Unremarkable. Lymph nodes: Unremarkable. No enlarged lymph nodes. Liver: The liver surface is nodular. There is a low density lesion in the medial segment of the left lobe of liver measuring 6 x 6 x 6.3 cm with a density measurement of 4H. Gallbladder and bile ducts: There are gallstones. Spleen: The spleen measures 16.5 cm in craniocaudal span. Intraperitoneal space: There is a small amount of perisplenic and perihepatic ascites. IMPRESSION: 1. No pulmonary embolism. 2. Bibasilar atelectasis with groundglass pneumonitis in the right upper lobe and small left pleural effusion. 3. Cirrhosis with splenomegaly. 4. Liver cyst. 5. Gallstones. 6. Small amount of intra-abdominal ascites
--- NOTE | 2016-11-30 21:45 | CP.PCM.CON ---
History of Present Illness - History of Present Illness History of Present Illness: 46 year old male with a history of alcoholism, recent discharge from the hospital for respiratory failure, sepsis, acute kidney injury requiring HD, readmitted with leg swelling and found to have a RLE DVT and anemia. The patient denies abnormal bleeding, bruising, and clotting. He does note his RLE began to swell and feel tight which prompted him to come to the ER. He denies chest pain and shortness of breath. Past medical history: Alcoholism Past surgical history: None Family history: Denies hematologic and oncologic problems Social history: Former tobacco, former alcohol, denies illicit drug use. Allergies: NKA Review of systems: All remaining review of systems including HEENT, cardiovascular, respiratory, gastrointestinal, genitourinary, musculoskeletal, dermatologic, neurologic, and psychiatric are negative unless mentioned in the HPI. Past Patient History - Infectious Disease Hx of Infectious Diseases: None - Tetanus Immunizations Tetanus Immunization: Unknown - Past Medical History & Family History Past Medical History?: Yes Past Family History: Reviewed and not pertinent - Past Social History Smoking Status: Former Smoker Chewing Tobacco Use: No Cigar Use: No Alcohol: None Drugs: Denies Home Situation {Lives}: Homeless Domestic Violence: Negative - CARDIAC Hx Hypertension: Yes - RENAL Date of Last Dialysis Treatment: 11/23/16 Other/Comment: "I HAD DIALYSIS BECAUSE THEY NEEDED TO CLEAN OUT MY LUNGS FROM THE PNEUMONIA." - HEMATOLOGICAL/ONCOLOGICAL Other/Comment: "FATTY LIVER" - INTEGUMENTARY Hx Psoriasis: Yes - MUSCULOSKELETAL/RHEUMATOLOGICAL Hx Falls: No - PSYCHIATRIC Hx Substance Use: No - SURGICAL HISTORY Hx Surgeries: No - ANESTHESIA Hx Anesthesia: No Meds Allergies/Adverse Reactions: Allergies Allergy/AdvReac Type Severity Reaction Status Date / Time No Known Allergies Allergy Verified 11/30/16 13:54 - Medications Medications: Current Medications Albuterol (Ventolin Hfa 90 Mcg/Actuation (8 G)) 1 puff INH RQ6 PRN PRN Reason: Shortness of Breath Enoxaparin Sodium (Lovenox) 80 mg SC Q12H [facility] Guaifenesin (Mucinex La) 600 mg PO BID [facility] Last Admin: 11/30/16 18:49 Dose: 600 mg Promethazine HCl/Codeine (Phenergan/Codeine Oral Syrup) 5 ml PO Q4 PRN PRN Reason: Cough and congestion Physical Exam - Head Exam Head Exam: ATRAUMATIC - Eye Exam Eye Exam: Normal appearance - ENT Exam ENT Exam: Mucous Membranes Dry - Respiratory Exam Respiratory Exam: NORMAL BREATHING PATTERN - Cardiovascular Exam Cardiovascular Exam: +S1, +S2 - GI/Abdominal Exam GI & Abdominal Exam: Normal Bowel Sounds - Extremities Exam Extremities exam: Positive for: pedal edema - Neurological Exam Neurological exam: Oriented x3 - Psychiatric Exam Psychiatric exam: Normal Affect, Normal Mood - Skin Skin Exam: Warm Results - Vital Signs Recent Vital Signs: Last Vital Signs Temp 99.0 F 11/30/16 21:35 Pulse 81 11/30/16 21:24 Resp 20 11/30/16 21:24 BP 104/70 11/30/16 21:24 Pulse Ox 98 11/30/16 21:24 - Labs Result Diagrams: 12/01/16 07:36 12/01/16 07:36 Labs: Laboratory Results - last 24 hr 11/30/16 20:20 Blood Type B POSITIVE Antibody Screen Negative Assessment & Plan (1) DVT (deep venous thrombosis) Assessment and Plan: right femoral and post tibial DVT agree with therapeutic anticoagulation likely provoked from recent hospitalization will send inherited thrombophilia w/u given age. Status: Acute (2) Anemia Assessment and Plan: work up consistent with anemia of chronic disease transfusion support PRN Status: Acute (3) Coagulopathy Assessment and Plan: anticoagulation Thank you for this interesting consult. Status: Acute
[2016-11-30] MEDS: Magnesium Sulfate 1 gm in D5W 1 GM/100 ML BAG IVPB SCH (23:45)
[2016-12-01] MEDS: Magnesium Sulfate 1 gm in D5W 1 GM/100 ML BAG IVPB SCH (00:15)
[2016-12-01] MEDS: Enoxaparin 80 mg Syringe SC SCH ×2 (05:31→18:00)
[2016-12-01 07:46] LABS: BASO # 0.1 K/uL (0.0-0.2); BASO % 1.1 % (0.0-2.0); EOS # 0.2 K/uL (0.0-0.7); EOS % 2.8 % (0.0-4.0); LYMPH # 1.4 K/uL (1.0-4.3); LYMPH % 17.2 % (20.0-40.0); MEAN CORPUSCULAR HEMOGLOBIN 30.8 pg (27.0-31.0); MEAN CORPUSCULAR HGB CONC 33.1 g/dL (33.0-37.0); MEAN PLATELET VOLUME 8.8 fL (7.2-11.7); MONO # 0.4 K/uL (0.0-0.8); MONO % 5.5 % (0.0-10.0)
[2016-12-01 07:55] LABS: INR 1.4
[2016-12-01 07:57] LABS: CHLORIDE 110 mmol/L (98-107)
[2016-12-01 07:58] LABS: POTASSIUM 3.7 mmol/L (3.6-5.2); SODIUM 147 mmol/L (132-148)
[2016-12-01 08:00] LABS: ALKALINE PHOSPHATASE 202 U/L (38-126); AST/SGOT 38 U/L (17-59); BILIRUBIN,TOTAL 1.1 mg/dL (0.2-1.3); CARBON DIOXIDE 22 mmol/L (22-30); GFR AFRICAN-AMERICAN > 60; TOTAL PROTEIN 7.9 g/dL (6.3-8.3)
[2016-12-01 08:01] LABS: ALB/GLOB RATIO 0.6 (1.0-2.1); ALT/SGPT 55 U/L (21-72); BLOOD UREA NITROGEN 9 mg/dL (9-20); CALCIUM 8.9 mg/dl (8.6-10.4); GLUCOSE,RANDOM 96 mg/dL (75-110); MAGNESIUM 1.8 mg/dL (1.6-2.3); PHOSPHOROUS 4.5 mg/dL (2.5-4.5)
--- NOTE | 2016-12-01 09:20 | CP.PCM.PN ---
<FrankiOpal - Last Filed: 12/01/16 21:22> Subjective - Date & Time of Evaluation Date of Evaluation: 12/01/16 Time of Evaluation: 09:20 - Subjective Subjective: Patient seen and examined at bedside. Patient resting comfortably in bed. Patient is stilling having pain in right calf but says the swelling has greatly improved since admission. Patient admits to cough productive of white phlegm. Pt says he is no longer having CP or SOB. Pt denies F/C//N/V/D. Objective - Vital Signs/Intake and Output Vital Signs (last 24 hours): Temp Pulse Resp BP Pulse Ox 98.2 F 98 H 20 120/84 99 12/01/16 08:47 12/01/16 08:47 12/01/16 08:47 12/01/16 08:47 12/01/16 08:47 Intake and Output: 12/01/16 12/01/16 06:59 18:59 Intake Total 449 Balance 449 - Medications Medications: Current Medications Albuterol (Ventolin Hfa 90 Mcg/Actuation (8 G)) 1 puff INH RQ6 PRN PRN Reason: Shortness of Breath Enoxaparin Sodium (Lovenox) 80 mg SC Q12H [facility] Last Admin: 12/01/16 05:31 Dose: 80 mg Guaifenesin (Mucinex La) 600 mg PO BID [facility] Last Admin: 11/30/16 18:49 Dose: 600 mg Promethazine HCl/Codeine (Phenergan/Codeine Oral Syrup) 5 ml PO Q4 PRN PRN Reason: Cough and congestion - Labs Labs: 12/01/16 07:36 12/01/16 07:36 PT 16.2 SECONDS (9.7-12.2) H 12/01/16 07:36 INR 1.4 12/01/16 07:36 APTT 43 SECONDS (21-34) H D 12/01/16 07:36 - Constitutional Appears: Non-toxic, No Acute Distress - Head Exam Head Exam: NORMAL INSPECTION - Eye Exam Eye Exam: EOMI - ENT Exam ENT Exam: Mucous Membranes Moist - Respiratory Exam Respiratory Exam: NORMAL BREATHING PATTERN. absent: Accessory Muscle Use, Wheezes, Respiratory Distress - Cardiovascular Exam Cardiovascular Exam: REGULAR RHYTHM, +S1, +S2 - GI/Abdominal Exam GI & Abdominal Exam: Soft. absent: Distended, Tenderness - Extremities Exam Extremities Exam: Calf Tenderness (right side). absent: Pedal Edema - Neurological Exam Neurological Exam: Alert, Awake, Oriented x3 - Psychiatric Exam Psychiatric exam: Normal Affect, Normal Mood - Skin Skin Exam: Dry, Intact, Normal Color, Warm Assessment and Plan - Assessment and Plan (Free Text) Assessment: Acute DVT * DVT confirmed right LE common femoral and post tibial by US * likely 2/2 recent hospitalization * lovenox 80 q 12 * Coumadin 5 mg PO started 12/01 * F/U INR daily until therapeutic * CT angio: negative for PE; Bibasilar atelectasis with groundglass pneumonitis in the right upper lobe and small left pleural effusion; Cirrhosis with splenomegaly; Liver cyst; Gallstones; Small amount of intra-abdominal ascites * heme/onc (Dr. 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 Davis) * w/u consistent with anemia of chronic disease * transfusion support PRN * consent for blood obtained * will order 1 unit as standby while patient is on therapuetic Lovenox to cover for DVT Cough * mucinex 600 mg PO bid * promethazine with codeine 5ml PO Q 4hour PRn * albuterol q 6 prn SOB * Chest CT negative for PE and pneumonia GI/DVT ppx * protonix 40mg daily for GI ppx * contraindications to scds 2/2 acute DVT * therapuetic Lovenox and started coumadin (12/01) * activity: bedrest Disposition: patient lives in nursing home; unlikely to afford NOAC; f/u heme-onc eval for affordable option <Chelsey Cisneros V - Last Filed: 12/02/16 01:42> Objective - Vital Signs/Intake and Output Vital Signs (last 24 hours): Temp Pulse Resp BP Pulse Ox 98.7 F 77 20 131/78 96 12/02/16 00:00 12/02/16 00:00 12/02/16 00:00 12/02/16 00:00 12/02/16 00:00 - Medications Medications: Current Medications Albuterol (Ventolin Hfa 90 Mcg/Actuation (8 G)) 1 puff INH RQ6 PRN PRN Reason: Shortness of Breath Enoxaparin Sodium (Lovenox) 80 mg SC Q12H [facility] Last Admin: 12/01/16 18:00 Dose: 80 mg Guaifenesin (Mucinex La) 600 mg PO BID [facility] Last Admin: 12/01/16 18:01 Dose: 600 mg Promethazine HCl/Codeine (Phenergan/Codeine Oral Syrup) 5 ml PO Q4 PRN PRN Reason: Cough and congestion Last Admin: 12/02/16 00:41 Dose: 5 ml - Labs Labs: PT 16.2 SECONDS (9.7-12.2) H 12/01/16 07:36 INR 1.4 12/01/16 07:36 APTT 43 SECONDS (21-34) H D 12/01/16 07:36 Attending/Attestation - Attestation I have personally seen and examined this patient.: Yes I have fully participated in the care of the patient.: Yes I have reviewed all pertinent clinical information, including history, physical exam and plan: Yes Notes (Text): This is late computer entry for 12/01/16. Patient seen, examined, and case discussed with day-time resident. Patient seen during rounds this morning. Patient is awake, alert, pleasant, no acute distress. H/H improved without blood transfusion. Patient on therapuetic Lovenox; will be bridged to Coumadin; discussed with heme -onc. Assessment/Plan 1. Acute DVT * Heme-onc (Dr. Anisha Davis) on board-->help appreciated * Venous duplex (12/01/16): acute thrombosis of the right common femoral and posterior tibial veins with mild reduction of the venous return * CT Angio (12/01/16): no pulmonary embolism, bibasilar atelectasis with ground glass pneuminitis in the right upper lobe and small left pleural effusion. Cirrhosis with splenomegaly, Liver cyst, Gallstones, Small amount of intra- abdominal ascites. * Patient is on therapeutic Lovenox; monitor H/H * contraindications to scds secondary to acute DVT * Patient started on Coumadin 5mg PO X1 for bridging * Patient status changed to inpatient given patient will need to be bridged to Coumadin. Patient cannot afford NOAC. Patient is homeless. 2. Hypokalemia * replete potassium and Mg2+ * monitor and replete if necessary 3. Anemia * monitor H/H * likely chronic disease per heme-onc 4. Cough * mucinex 600mg PO bid * promethazine with codeine 5ml PO Q 4hour PRN cough * albuterol q 6 prn shortness of breathe * CT Angio (12/01/16): no pulmonary embolism, bibasilar atelectasis with ground glass pneuminitis in the right upper lobe and small left pleural effusion. Cirrhosis with splenomegaly, Liver cyst, Gallstones, Small amount of intra- abdominal ascites. 5. GI/DVT ppx * protonix 40mg daily for GI ppx * contraindications to scds secondary to acute DVT * therapuetic Lovenox bridge to Coumadin * activity: bedrest Disposition: patient lives in nursing home; cannot afford NOAC; Patient to be bridged to Lovenox to Coumadin, (affordable option) for patient with first time DVT.
[2016-12-01] MEDS: guaiFENesin 600 mg ER Tab PO SCH ×2 (10:16→18:01)
--- NOTE | 2016-12-01 10:44 | VASCLAB ---
PROCEDURE: Lower Extremity Venous Duplex Exam. HISTORY: R>L leg edema PRIORS: None. TECHNIQUE: Bilateral common femoral, femoral, popliteal and posterior tibial, peroneal and great saphenous veins were evaluated. Flow was assessed with color Doppler, compressibility, assessment of phasic flow and augmentation response. Report prepared by Giovanni Pedroza, AVIS, RVT FINDINGS: RIGHT: 1. Common Femoral Vein: 1.1. Compressibility - Partial: Thrombus - Acute : Flow - Reduced : Augmentation -Reduced: Reflux - None. 2. Femoral Vein: 2.1. Compressibility - Fully compressible: Thrombus - None : Flow - Phasic: Augmentation -Normal: Reflux - None. 3. Popliteal Vein: 3.1. Compressibility - Fully compressible: Thrombus - None : Flow - Phasic: Augmentation -Normal: Reflux - None. 4. Posterior Tibial Vein: 4.1. Compressibility - Partial: Thrombus - Acute: Flow - Reduced : Augmentation -Reduced: Reflux - None. 5. Peroneal Vein: 5.1. Compressibility - Fully compressible: Thrombus - None: Flow - Phasic: Augmentation -Normal: Reflux - None. 6. Great Saphenous Vein: 6.1. Compressibility - Fully compressible: Thrombus - None: Flow - Phasic: Augmentation - Normal: Reflux - None. LEFT: 1. Common Femoral Vein: 1.1. Compressibility - Fully compressible: Thrombus - None: Flow - Phasic: Augmentation -Normal: Reflux - None. 2. Femoral Vein: 2.1. Compressibility - Fully compressible: Thrombus - None: Flow - Phasic: Augmentation -Normal: Reflux - None. 3. Popliteal Vein: 3.1. Compressibility - Fully compressible: Thrombus - None : Flow - Phasic: Augmentation -Normal: Reflux - None. 4. Posterior Tibial Vein: 4.1. Compressibility - Fully compressible: Thrombus - None: Flow - Phasic: Augmentation -Normal: Reflux - None. 5. Peroneal Vein: 5.1. Compressibility - Fully compressible: Thrombus - None: Flow - Phasic: Augmentation -Normal: Reflux - None. 6. Great Saphenous Vein: 6.1. Compressibility - Fully compressible: Thrombus - None: Flow - Phasic: Augmentation - Normal: Reflux - None. OTHER FINDINGS: LM Mccormick notified about the findings. IMPRESSION: Right: Acute thrombosis of the right common femoral and posterior tibial veins with mild reduction of the venous return. Left: No evidence of deep or superficial vein thrombosis of the left lower extremity. Normal valve function noted of the left side.
[2016-12-01] MEDS: Promethazine/Cod 6.25mg-10mg/5ml Syr UD PO PRN ×2 (14:05→18:05)
[2016-12-01] MEDS ORDERED: Magnesium Sulfate 1 gm in D5W 1 GM/100 ML BAG IVPB ONE (16:39)
[2016-12-02] MEDS: Promethazine/Cod 6.25mg-10mg/5ml Syr UD PO PRN (00:41)
[2016-12-02] MEDS: Enoxaparin 80 mg Syringe SC SCH ×2 (05:34→17:00)
[2016-12-02 06:44] LABS: BASO # 0.1 K/uL (0.0-0.2); EOS # 0.4 K/uL (0.0-0.7); EOS % 8.2 % (0.0-4.0); HEMATOCRIT 25.1 % (35.0-51.0); LYMPH # 1.1 K/uL (1.0-4.3); LYMPH % 19.7 % (20.0-40.0); MEAN CELL VOLUME 92.3 fL (80.0-94.0); MEAN CORPUSCULAR HEMOGLOBIN 30.6 pg (27.0-31.0); MEAN CORPUSCULAR HGB CONC 33.2 g/dL (33.0-37.0); MEAN PLATELET VOLUME 8.7 fL (7.2-11.7); MONO # 0.4 K/uL (0.0-0.8); MONO % 6.8 % (0.0-10.0); WHITE BLOOD COUNT 5.5 K/uL (4.8-10.8)
[2016-12-02 06:46] LABS: INR 1.4
[2016-12-02 06:57] LABS: ALB/GLOB RATIO 0.7 (1.0-2.1); ALKALINE PHOSPHATASE 149 U/L (38-126); ALT/SGPT 42 U/L (21-72); AST/SGOT 25 U/L (17-59); BILIRUBIN,TOTAL 0.6 mg/dL (0.2-1.3); BLOOD UREA NITROGEN 10 mg/dL (9-20); CALCIUM 8.3 mg/dl (8.6-10.4); CARBON DIOXIDE 20 mmol/L (22-30); CHLORIDE 108 mmol/L (98-107); GFR AFRICAN-AMERICAN > 60; GLUCOSE,RANDOM 71 mg/dL (75-110); MAGNESIUM 1.6 mg/dL (1.6-2.3); PHOSPHOROUS 4.2 mg/dL (2.5-4.5); POTASSIUM 3.5 mmol/L (3.6-5.2); SODIUM 139 mmol/L (132-148); TOTAL PROTEIN 6.4 g/dL (6.3-8.3)
--- NOTE | 2016-12-02 09:05 | CP.PCM.PN ---
<Opal Doan - Last Filed: 12/02/16 15:44> Subjective - Date & Time of Evaluation Date of Evaluation: 12/02/16 Time of Evaluation: 09:05 - Subjective Subjective: Patient seen and examined at bedside. Patient resting comfortably in bed. Patient denies pain in right calf. Swelling increased mildly overnight but says the swelling has greatly improved since admission. Patient admits to cough productive of white phlegm. Pt says he is no longer having CP or SOB. Pt denies F/C//N/V/D. Objective - Vital Signs/Intake and Output Vital Signs (last 24 hours): Temp Pulse Resp BP Pulse Ox 98.2 F 80 20 133/84 97 12/02/16 07:42 12/02/16 07:42 12/02/16 07:42 12/02/16 07:42 12/02/16 07:42 Intake and Output: 12/02/16 12/02/16 06:59 18:59 Intake Total 240 Balance 240 - Medications Medications: Current Medications Albuterol (Ventolin Hfa 90 Mcg/Actuation (8 G)) 1 puff INH RQ6 PRN PRN Reason: Shortness of Breath Enoxaparin Sodium (Lovenox) 80 mg SC Q12H [facility] Last Admin: 12/02/16 05:34 Dose: 80 mg Guaifenesin (Mucinex La) 600 mg PO BID [facility] Last Admin: 12/01/16 18:01 Dose: 600 mg Promethazine HCl/Codeine (Phenergan/Codeine Oral Syrup) 5 ml PO Q4 PRN PRN Reason: Cough and congestion Last Admin: 12/02/16 00:41 Dose: 5 ml - Labs Labs: 12/02/16 06:30 12/02/16 06:30 PT 15.5 SECONDS (9.7-12.2) H 12/02/16 06:30 INR 1.4 12/02/16 06:30 APTT 43 SECONDS (21-34) H D 12/01/16 07:36 - Constitutional Appears: Non-toxic, No Acute Distress - Head Exam Head Exam: NORMAL INSPECTION - Eye Exam Eye Exam: EOMI - ENT Exam ENT Exam: Mucous Membranes Moist - Respiratory Exam Respiratory Exam: Rhonchi, NORMAL BREATHING PATTERN. absent: Accessory Muscle Use, Respiratory Distress - Cardiovascular Exam Cardiovascular Exam: REGULAR RHYTHM, +S1, +S2 - GI/Abdominal Exam GI & Abdominal Exam: Soft, Normal Bowel Sounds. absent: Distended, Tenderness - Extremities Exam Extremities Exam: Pedal Edema (moreso on right) - Neurological Exam Neurological Exam: Alert, Awake - Psychiatric Exam Psychiatric exam: Normal Affect, Normal Mood - Skin Skin Exam: Dry, Intact, Warm Assessment and Plan - Assessment and Plan (Free Text) Assessment: Acute DVT * DVT confirmed right LE common femoral and post tibial by US * likely 2/2 recent hospitalization * lovenox 80 q 12 * Coumadin 5 mg PO started 12/01 * F/U INR daily until therapeutic; currently 1.4 (12/02) * CT angio: negative for PE; Bibasilar atelectasis with groundglass pneumonitis in the right upper lobe and small left pleural effusion; Cirrhosis with splenomegaly; Liver cyst; Gallstones; Small amount of intra-abdominal ascites * heme/onc (Dr. 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 Davis) * w/u consistent with anemia of chronic disease * transfusion support PRN * consent for blood obtained * will order 1 unit as standby while patient is on therapuetic Lovenox to cover for DVT Cough * mucinex 600 mg PO bid * promethazine with codeine 5ml PO Q 4hour PRn * albuterol q 6 prn SOB * Chest CT negative for PE and pneumonia GI/DVT ppx * protonix 40mg daily for GI ppx * contraindications to scds 2/2 acute DVT * therapuetic Lovenox and started coumadin (12/01) * activity: bedrest Disposition: Patient unable to afford outpatient therapy and will need to stay until INR therapeutic <Chelsey Cisneros V - Last Filed: 12/02/16 21:42> Objective - Vital Signs/Intake and Output Vital Signs (last 24 hours): Temp Pulse Resp BP Pulse Ox 98.5 F 80 20 133/81 96 12/02/16 16:00 12/02/16 16:00 12/02/16 16:00 12/02/16 16:00 12/02/16 16:00 Intake and Output: 12/02/16 12/03/16 18:59 06:59 Intake Total 720 Balance 720 - Medications Medications: Current Medications Albuterol (Ventolin Hfa 90 Mcg/Actuation (8 G)) 1 puff INH RQ6 PRN PRN Reason: Shortness of Breath Enoxaparin Sodium (Lovenox) 80 mg SC Q12H [facility] Last Admin: 12/02/16 17:00 Dose: 80 mg Guaifenesin (Mucinex La) 600 mg PO BID [facility] Last Admin: 12/02/16 09:51 Dose: 600 mg Promethazine HCl/Codeine (Phenergan/Codeine Oral Syrup) 5 ml PO Q4 PRN PRN Reason: Cough and congestion Last Admin: 12/02/16 00:41 Dose: 5 ml - Labs Labs: 12/02/16 06:30 12/02/16 06:30 PT 15.5 SECONDS (9.7-12.2) H 12/02/16 06:30 INR 1.4 12/02/16 06:30 APTT 43 SECONDS (21-34) H D 12/01/16 07:36 Attending/Attestation - Attestation I have personally seen and examined this patient.: Yes I have fully participated in the care of the patient.: Yes I have reviewed all pertinent clinical information, including history, physical exam and plan: Yes Notes (Text): Patient seen, examined, and case discussed with day-time resident. Patient seen during rounds this afternoon. Patient is awake, alert, pleasant, no acute distress. Patient reports he has cough but reports Mucinex and cough syrup help him. Patient's right lower extremity noticeably improved edema. Discussed with social work, patient has no insurance. Patient on therapuetic Lovenox; will be bridged to Coumadin for therapuetic INR to be ready for discharge. Patient ordered for Coumadin 5mg PO tonight Electrolytes repleted Assessment/Plan 1. Acute DVT * Heme-onc (Dr. Anisha Davis) on board-->help appreciated * Venous duplex (12/01/16): acute thrombosis of the right common femoral and posterior tibial veins with mild reduction of the venous return * CT Angio (12/01/16): no pulmonary embolism, bibasilar atelectasis with ground glass pneuminitis in the right upper lobe and small left pleural effusion. Cirrhosis with splenomegaly, Liver cyst, Gallstones, Small amount of intra- abdominal ascites. * Patient is on therapeutic Lovenox; monitor H/H * contraindications to scds secondary to acute DVT * Patient status changed to inpatient given patient will need to be bridged to Coumadin. Patient cannot afford NOAC. Patient is homeless. Confirmed with social work today * To be given Coumadin 5mg PO X1, f/u INR 2. Hypokalemia * replete potassium and Mg2+ * monitor and replete if necessary 3. Anemia * monitor H/H * likely chronic disease per heme-onc 4. Cough * mucinex 600mg PO bid * promethazine with codeine 5ml PO Q 4hour PRN cough * albuterol q 6 prn shortness of breathe * CT Angio (12/01/16): no pulmonary embolism, bibasilar atelectasis with ground glass pneuminitis in the right upper lobe and small left pleural effusion. Cirrhosis with splenomegaly, Liver cyst, Gallstones, Small amount of intra- abdominal ascites. 5. GI/DVT ppx * protonix 40mg daily for GI ppx * contraindications to scds secondary to acute DVT * therapuetic Lovenox bridge to Coumadin * activity: bedrest Disposition: patient lives in alf; cannot afford NOAC; Patient to be bridged to Lovenox to Coumadin, (affordable option) for patient with first time DVT. Patient will be ready for discharge when INR is therapeutic (2-3).
[2016-12-02] MEDS: guaiFENesin 600 mg ER Tab PO SCH ×2 (09:51→18:00)
--- NOTE | 2016-12-02 11:44 | CARD ---
APPROVED REPORT EKG Measurement Heart [id number] <Conclusion> Normal sinus rhythm Normal ECG
[2016-12-02] MEDS ORDERED: Magnesium Sulfate 1 gm in D5W 1 GM/100 ML BAG IVPB ONE (14:40)
[2016-12-02] MEDS ORDERED: Potassium Chloride 20 mEq/15 ml LIQ UD PO ONE (14:45)
[2016-12-02] MEDS: Magnesium Sulfate 1 gm in D5W 1 GM/100 ML BAG IVPB SCH ×2 (15:01→15:02)
[2016-12-03 07:12] LABS: BASO # 0.1 K/uL (0.0-0.2); EOS # 0.5 K/uL (0.0-0.7); EOS % 7.6 % (0.0-4.0); HEMATOCRIT 26.7 % (35.0-51.0); LYMPH # 1.4 K/uL (1.0-4.3); LYMPH % 20.7 % (20.0-40.0); MEAN CELL VOLUME 92.3 fL (80.0-94.0); MEAN CORPUSCULAR HEMOGLOBIN 30.3 pg (27.0-31.0); MEAN CORPUSCULAR HGB CONC 32.9 g/dL (33.0-37.0); MEAN PLATELET VOLUME 8.7 fL (7.2-11.7); MONO # 0.4 K/uL (0.0-0.8); MONO % 5.7 % (0.0-10.0); NRBC % 0.1 % (0.0-2.0); RED CELL DISTRIBUTION WIDTH 15.8 % (11.5-14.5); WHITE BLOOD COUNT 6.6 K/uL (4.8-10.8)
[2016-12-03 07:18] LABS: INR 1.3
[2016-12-03 07:25] LABS: CHLORIDE 107 mmol/L (98-107); POTASSIUM 3.9 mmol/L (3.6-5.2); SODIUM 144 mmol/L (132-148)
[2016-12-03 07:27] LABS: BILIRUBIN,TOTAL 0.7 mg/dL (0.2-1.3); CARBON DIOXIDE 25 mmol/L (22-30); GFR AFRICAN-AMERICAN > 60
[2016-12-03 07:28] LABS: ALB/GLOB RATIO 0.6 (1.0-2.1); ALKALINE PHOSPHATASE 173 U/L (38-126); ALT/SGPT 46 U/L (21-72); AST/SGOT 30 U/L (17-59); BLOOD UREA NITROGEN 10 mg/dL (9-20); CALCIUM 8.8 mg/dl (8.6-10.4); GLUCOSE,RANDOM 102 mg/dL (75-110); MAGNESIUM 1.7 mg/dL (1.6-2.3); PHOSPHOROUS 4.1 mg/dL (2.5-4.5); TOTAL PROTEIN 7.5 g/dL (6.3-8.3)
--- NOTE | 2016-12-03 07:59 | CP.PCM.PN ---
<Opal Doan - Last Filed: 12/03/16 17:09> Subjective - Date & Time of Evaluation Date of Evaluation: 12/03/16 Time of Evaluation: 07:57 - Subjective Subjective: Patient seen and examined at bedside. Patient resting comfortably in bed. Patient denies pain in right calf. Swelling has greatly improved since admission and pt says it a little better than yesterday. Patient admits to cough productive of white phlegm but says it is improving and he is producing less phlegm now. Pt says he was having lft sided sharp chest pain this morning on deep inspiration but it is now gone and he can no longer reproduce this pain. Pt denies SOB/F/C//N/V/D. Objective - Vital Signs/Intake and Output Vital Signs (last 24 hours): Temp Pulse Resp BP Pulse Ox 98.4 F 83 20 144/84 98 12/03/16 07:43 12/03/16 07:43 12/03/16 07:43 12/03/16 07:43 12/03/16 07:43 Intake and Output: 12/03/16 12/03/16 06:59 18:59 Intake Total 640 Balance 640 - Medications Medications: Current Medications Albuterol (Ventolin Hfa 90 Mcg/Actuation (8 G)) 1 puff INH RQ6 PRN PRN Reason: Shortness of Breath Enoxaparin Sodium (Lovenox) 80 mg SC Q12H [facility] Last Admin: 12/02/16 17:00 Dose: 80 mg Guaifenesin (Mucinex La) 600 mg PO BID [facility] Last Admin: 12/02/16 18:00 Dose: 600 mg Promethazine HCl/Codeine (Phenergan/Codeine Oral Syrup) 5 ml PO Q4 PRN PRN Reason: Cough and congestion Last Admin: 12/02/16 00:41 Dose: 5 ml - Labs Labs: 12/03/16 06:57 12/03/16 06:57 PT 14.8 SECONDS (9.7-12.2) H 12/03/16 06:57 INR 1.3 12/03/16 06:57 APTT 43 SECONDS (21-34) H D 12/01/16 07:36 - Constitutional Appears: Non-toxic, No Acute Distress - Head Exam Head Exam: NORMAL INSPECTION - Eye Exam Eye Exam: EOMI - ENT Exam ENT Exam: Mucous Membranes Moist - Respiratory Exam Respiratory Exam: Rhonchi (inspiratory), NORMAL BREATHING PATTERN. absent: Rales, Wheezes - Cardiovascular Exam Cardiovascular Exam: REGULAR RHYTHM, +S1, +S2 - GI/Abdominal Exam GI & Abdominal Exam: Soft. absent: Distended, Tenderness - Extremities Exam Extremities Exam: Pedal Edema - Psychiatric Exam Psychiatric exam: Normal Affect, Normal Mood - Skin Skin Exam: Dry, Intact, Warm Assessment and Plan - Assessment and Plan (Free Text) Assessment: Acute DVT * DVT confirmed right LE common femoral and post tibial by US * likely 2/2 recent hospitalization * lovenox 80 q 12 * Coumadin 7.5 mg PO started 12/01 * F/U INR daily until therapeutic; currently 1.7 (12/03) * CT angio: negative for PE; Bibasilar atelectasis with groundglass pneumonitis in the right upper lobe and small left pleural effusion; Cirrhosis with splenomegaly; Liver cyst; Gallstones; Small amount of intra-abdominal ascites * heme/onc (Dr. 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 Davis) * w/u consistent with anemia of chronic disease * transfusion support PRN * consent for blood obtained * will order 1 unit as standby while patient is on therapuetic Lovenox to cover for DVT Cough * mucinex 600 mg PO bid * promethazine with codeine 5ml PO Q 4hour PRn * albuterol q 6 prn SOB * Chest CT negative for PE and pneumonia GI/DVT ppx * protonix 40mg daily for GI ppx * contraindications to scds 2/2 acute DVT * therapuetic Lovenox and started coumadin (12/01) * activity: bedrest Disposition: Patient unable to afford outpatient therapy and will need to stay until INR therapeutic <Chelsey Cisneros V - Last Filed: 12/04/16 05:16> Objective - Vital Signs/Intake and Output Vital Signs (last 24 hours): Temp Pulse Resp BP Pulse Ox 98.6 F 75 20 146/86 99 12/04/16 01:36 12/04/16 01:36 12/04/16 01:36 12/04/16 01:36 12/04/16 01:36 - Medications Medications: Current Medications Albuterol (Ventolin Hfa 90 Mcg/Actuation (8 G)) 1 puff INH RQ6 PRN PRN Reason: Shortness of Breath Last Admin: 12/03/16 12:43 Dose: 1 puff Chlordiazepoxide (Librium) 25 mg PO Q12 PRN PRN Reason: tremor Last Admin: 12/03/16 14:10 Dose: 25 mg Enoxaparin Sodium (Lovenox) 80 mg SC Q12H [facility] Last Admin: 12/03/16 17:56 Dose: 80 mg Guaifenesin (Mucinex La) 600 mg PO BID [facility] Last Admin: 12/03/16 17:57 Dose: 600 mg Promethazine HCl/Codeine (Phenergan/Codeine Oral Syrup) 5 ml PO Q4 PRN PRN Reason: Cough and congestion Last Admin: 12/03/16 12:47 Dose: 5 ml - Labs Labs: 12/03/16 06:57 12/03/16 06:57 PT 14.8 SECONDS (9.7-12.2) H 12/03/16 06:57 INR 1.3 12/03/16 06:57 APTT 43 SECONDS (21-34) H D 12/01/16 07:36 Attending/Attestation - Attestation I have personally seen and examined this patient.: Yes I have fully participated in the care of the patient.: Yes I have reviewed all pertinent clinical information, including history, physical exam and plan: Yes Notes (Text): This is a late computer entry for 12/03/16. Patient seen, examined, and case discussed with day-time resident. Patient seen during rounds this afternoon. Patient is awake, alert, pleasant, no acute distress. Patient reports he has cough but reports Mucinex and cough syrup help him. Patient's right lower extremity noticeably improved edema. Patient on therapuetic Lovenox; will be bridged to Coumadin for therapuetic INR to be ready for discharge. Patient ordered for Coumadin 7.5mg PO tonight Electrolytes repleted Assessment/Plan 1. Acute DVT * Heme-onc (Dr. S [place]) on board-->help appreciated * Venous duplex (12/01/16): acute thrombosis of the right common femoral and posterior tibial veins with mild reduction of the venous return * CT Angio (12/01/16): no pulmonary embolism, bibasilar atelectasis with ground glass pneuminitis in the right upper lobe and small left pleural effusion. Cirrhosis with splenomegaly, Liver cyst, Gallstones, Small amount of intra- abdominal ascites. * Patient is on therapeutic Lovenox; monitor H/H * contraindications to scds secondary to acute DVT * Patient status changed to inpatient given patient will need to be bridged to Coumadin. Patient cannot afford NOAC. Patient is homeless. Confirmed with social work today * To be given Coumadin 7.5mg PO X1, f/u INR 2. Hypokalemia * replete potassium and Mg2+ * monitor and replete if necessary 3. Anemia * monitor H/H * likely chronic disease per heme-onc 4. Cough * mucinex 600mg PO bid * promethazine with codeine 5ml PO Q 4hour PRN cough * albuterol q 6 prn shortness of breathe * CT Angio (12/01/16): no pulmonary embolism, bibasilar atelectasis with ground glass pneuminitis in the right upper lobe and small left pleural effusion. Cirrhosis with splenomegaly, Liver cyst, Gallstones, Small amount of intra- abdominal ascites. 5. GI/DVT ppx * protonix 40mg daily for GI ppx * contraindications to scds secondary to acute DVT * therapuetic Lovenox bridge to Coumadin * activity: bedrest Disposition: patient lives in [facility]; cannot afford NOAC; Patient to be bridged to Lovenox to Coumadin, (affordable option) for patient with first time DVT. Patient will be ready for discharge when INR is therapeutic (2-3).
[2016-12-03] MEDS: guaiFENesin 600 mg ER Tab PO SCH ×2 (10:44→17:57)
[2016-12-03] MEDS: Albuterol HFA 90 mcg/actuation (8 g) INH PRN (12:43)
[2016-12-03] MEDS: Promethazine/Cod 6.25mg-10mg/5ml Syr UD PO PRN (12:47)
[2016-12-03] MEDS ORDERED: Magnesium Sulfate 1 gm in D5W 1 GM/100 ML BAG IVPB ONE (14:00)
--- NOTE | 2016-12-03 17:33 | CP.PCM.PN ---
Subjective - Date & Time of Evaluation Date of Evaluation: 12/03/16 Time of Evaluation: 15:25 - Subjective Subjective: Feeling better, less leg swelling Objective - Vital Signs/Intake and Output Vital Signs (last 24 hours): Temp Pulse Resp BP Pulse Ox 98.6 F 83 20 144/84 97 12/03/16 15:00 12/03/16 15:00 12/03/16 15:00 12/03/16 15:00 12/03/16 15:00 Intake and Output: 12/03/16 12/03/16 06:59 18:59 Intake Total 640 Balance 640 - Medications Medications: Current Medications Albuterol (Ventolin Hfa 90 Mcg/Actuation (8 G)) 1 puff INH RQ6 PRN PRN Reason: Shortness of Breath Last Admin: 12/03/16 12:43 Dose: 1 puff Chlordiazepoxide (Librium) 25 mg PO Q12 PRN PRN Reason: tremor Last Admin: 12/03/16 14:10 Dose: 25 mg Enoxaparin Sodium (Lovenox) 80 mg SC Q12H [facility] Last Admin: 12/02/16 17:00 Dose: 80 mg Guaifenesin (Mucinex La) 600 mg PO BID [facility] Last Admin: 12/03/16 10:44 Dose: 600 mg Promethazine HCl/Codeine (Phenergan/Codeine Oral Syrup) 5 ml PO Q4 PRN PRN Reason: Cough and congestion Last Admin: 12/03/16 12:47 Dose: 5 ml Warfarin Sodium (Coumadin) 7.5 mg PO 1800 [facility] Stop: 12/03/16 18:01 - Labs Labs: 12/03/16 06:57 12/03/16 06:57 PT 14.8 SECONDS (9.7-12.2) H 12/03/16 06:57 INR 1.3 12/03/16 06:57 APTT 43 SECONDS (21-34) H D 12/01/16 07:36 - Head Exam Head Exam: ATRAUMATIC - Eye Exam Eye Exam: Normal appearance - ENT Exam ENT Exam: Mucous Membranes Dry - Respiratory Exam Respiratory Exam: NORMAL BREATHING PATTERN - Cardiovascular Exam Cardiovascular Exam: +S1, +S2 - GI/Abdominal Exam GI & Abdominal Exam: Normal Bowel Sounds - Extremities Exam Extremities Exam: Pedal Edema Assessment and Plan (1) DVT (deep venous thrombosis) Assessment & Plan: therapeutic anticoagulation f/u inherited thrombophilia w/u Status: Acute (2) Anemia Assessment & Plan: chronic disease Status: Acute (3) Coagulopathy Assessment & Plan: anticoagulation Status: Acute
[2016-12-03] MEDS: Enoxaparin 80 mg Syringe SC SCH (17:56)
[2016-12-04] MEDS: Enoxaparin 80 mg Syringe SC SCH ×2 (05:28→17:50)
[2016-12-04] MEDS: Promethazine/Cod 6.25mg-10mg/5ml Syr UD PO PRN ×2 (05:32→17:50)
[2016-12-04 07:55] LABS: INR 1.4
[2016-12-04 07:57] LABS: BASO # 0.1 K/uL (0.0-0.2); EOS # 0.4 K/uL (0.0-0.7); HEMATOCRIT 26.6 % (35.0-51.0); LYMPH # 1.2 K/uL (1.0-4.3); MEAN CELL VOLUME 92.3 fL (80.0-94.0); MEAN CORPUSCULAR HEMOGLOBIN 30.6 pg (27.0-31.0); MEAN CORPUSCULAR HGB CONC 33.2 g/dL (33.0-37.0); MEAN PLATELET VOLUME 8.6 fL (7.2-11.7); MONO # 0.3 K/uL (0.0-0.8); MONO % 5.1 % (0.0-10.0); RED CELL DISTRIBUTION WIDTH 15.8 % (11.5-14.5); WHITE BLOOD COUNT 6.4 K/uL (4.8-10.8)
[2016-12-04 08:10] LABS: CHLORIDE 109 mmol/L (98-107); POTASSIUM 4.1 mmol/L (3.6-5.2); SODIUM 146 mmol/L (132-148)
[2016-12-04 08:12] LABS: ALB/GLOB RATIO 0.7 (1.0-2.1); AST/SGOT 32 U/L (17-59); BILIRUBIN,TOTAL 0.8 mg/dL (0.2-1.3); CARBON DIOXIDE 28 mmol/L (22-30); GFR AFRICAN-AMERICAN > 60; TOTAL PROTEIN 7.6 g/dL (6.3-8.3)
[2016-12-04 08:13] LABS: ALKALINE PHOSPHATASE 171 U/L (38-126); ALT/SGPT 42 U/L (21-72); BLOOD UREA NITROGEN 11 mg/dL (9-20); CALCIUM 8.8 mg/dl (8.6-10.4); GLUCOSE,RANDOM 101 mg/dL (75-110); MAGNESIUM 1.6 mg/dL (1.6-2.3); PHOSPHOROUS 4.4 mg/dL (2.5-4.5)
[2016-12-04] MEDS: guaiFENesin 600 mg ER Tab PO SCH ×2 (09:20→17:49)
--- NOTE | 2016-12-04 15:37 | CP.PCM.PN ---
<Opal Doan - Last Filed: 12/04/16 18:59> Subjective - Date & Time of Evaluation Date of Evaluation: 12/04/16 Time of Evaluation: 15:37 - Subjective Subjective: Patient seen and examined at bedside. Patient resting comfortably in bed. Patient denies pain in right calf. Swelling has greatly improved since admission and pt says it a little better than yesterday. Patient admits to cough productive of white phlegm but says it is improving and he is producing less phlegm now. Pt denies CP/SOB/F/C//N/V/D. Objective - Vital Signs/Intake and Output Vital Signs (last 24 hours): Temp Pulse Resp BP Pulse Ox 98.6 F 80 19 139/90 96 12/04/16 08:25 12/04/16 08:25 12/04/16 08:25 12/04/16 08:25 12/04/16 08:25 Intake and Output: 12/04/16 12/04/16 06:59 18:59 Intake Total 240 400 Balance 240 400 - Medications Medications: Current Medications Albuterol (Ventolin Hfa 90 Mcg/Actuation (8 G)) 1 puff INH RQ6 PRN PRN Reason: Shortness of Breath Last Admin: 12/03/16 12:43 Dose: 1 puff Chlordiazepoxide (Librium) 25 mg PO Q12 PRN PRN Reason: tremor Last Admin: 12/04/16 09:20 Dose: 25 mg Enoxaparin Sodium (Lovenox) 80 mg SC Q12H [facility] Last Admin: 12/04/16 05:28 Dose: 80 mg Guaifenesin (Mucinex La) 600 mg PO BID [facility] Last Admin: 12/04/16 09:20 Dose: 600 mg Promethazine HCl/Codeine (Phenergan/Codeine Oral Syrup) 5 ml PO Q4 PRN PRN Reason: Cough and congestion Last Admin: 12/04/16 05:32 Dose: 5 ml Warfarin Sodium (Coumadin) 7.5 mg PO 1800 [facility] Stop: 12/04/16 18:01 - Labs Labs: 12/04/16 07:40 12/04/16 07:40 PT 15.3 SECONDS (9.7-12.2) H 12/04/16 07:40 INR 1.4 12/04/16 07:40 APTT 43 SECONDS (21-34) H D 12/01/16 07:36 - Constitutional Appears: Non-toxic, No Acute Distress - Head Exam Head Exam: NORMAL INSPECTION - Eye Exam Eye Exam: EOMI - ENT Exam ENT Exam: Mucous Membranes Moist - Respiratory Exam Respiratory Exam: Rhonchi, NORMAL BREATHING PATTERN. absent: Accessory Muscle Use, Wheezes, Respiratory Distress - Cardiovascular Exam Cardiovascular Exam: REGULAR RHYTHM, +S1, +S2 - GI/Abdominal Exam GI & Abdominal Exam: Soft, Normal Bowel Sounds. absent: Distended, Tenderness - Extremities Exam Extremities Exam: Pedal Edema - Neurological Exam Neurological Exam: Alert, Awake - Psychiatric Exam Psychiatric exam: Normal Affect, Normal Mood - Skin Skin Exam: Dry, Intact, Warm Assessment and Plan - Assessment and Plan (Free Text) Assessment: Acute DVT * DVT confirmed right LE common femoral and post tibial by US * likely 2/2 recent hospitalization * lovenox 80 q 12 * Coumadin 7.5 mg PO started 12/01 * F/U INR daily until therapeutic; currently 1.4 (12/04) * Diet - no dark leafy greens * CT angio: negative for PE; Bibasilar atelectasis with groundglass pneumonitis in the right upper lobe and small left pleural effusion; Cirrhosis with splenomegaly; Liver cyst; Gallstones; Small amount of intra-abdominal ascites * heme/onc (Dr. 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 Davis) * w/u consistent with anemia of chronic disease * transfusion support PRN * consent for blood obtained * will order 1 unit as standby while patient is on therapuetic Lovenox to cover for DVT Cough * mucinex 600 mg PO bid * promethazine with codeine 5ml PO Q 4hour PRn * albuterol q 6 prn SOB * Chest CT negative for PE and pneumonia GI/DVT ppx * protonix 40mg daily for GI ppx * contraindications to scds 2/2 acute DVT * therapuetic Lovenox and started coumadin (12/01) * activity: bedrest Disposition: Patient unable to afford outpatient therapy and will need to stay until INR therapeutic <Chelsey Cisneros V - Last Filed: 12/05/16 09:44> Objective - Vital Signs/Intake and Output Vital Signs (last 24 hours): Temp Pulse Resp BP Pulse Ox 97.4 F L 79 20 147/91 H 96 12/05/16 00:00 12/05/16 00:00 12/05/16 00:00 12/05/16 00:00 12/05/16 00:00 Intake and Output: 12/05/16 12/05/16 06:59 18:59 Intake Total 250 Balance 250 - Medications Medications: Current Medications Albuterol (Ventolin Hfa 90 Mcg/Actuation (8 G)) 1 puff INH RQ6 PRN PRN Reason: Shortness of Breath Last Admin: 12/05/16 07:55 Dose: 1 puff Chlordiazepoxide (Librium) 25 mg PO Q12 PRN PRN Reason: tremor Last Admin: 12/04/16 09:20 Dose: 25 mg Enoxaparin Sodium (Lovenox) 80 mg SC Q12H [facility] Last Admin: 12/05/16 05:06 Dose: 80 mg Guaifenesin (Mucinex La) 600 mg PO BID [facility] Last Admin: 12/04/16 17:49 Dose: 600 mg Magnesium Sulfate/Dextrose (Magnesium Sulfate 1 Gm/100 Ml D5w) 1 gm in 100 mls @ 300 mls/hr IVPB Q30M [facility] Stop: 12/05/16 10:19 Promethazine HCl/Codeine (Phenergan/Codeine Oral Syrup) 5 ml PO Q4 PRN PRN Reason: Cough and congestion Last Admin: 12/04/16 17:50 Dose: 5 ml Warfarin Sodium (Coumadin) 7.5 mg PO 1800 [facility] Stop: 12/05/16 18:01 - Labs Labs: 12/05/16 08:18 12/05/16 08:18 PT 17.1 SECONDS (9.7-12.2) H 12/05/16 08:18 INR 1.5 12/05/16 08:18 APTT 43 SECONDS (21-34) H D 12/01/16 07:36 Attending/Attestation - Attestation I have personally seen and examined this patient.: Yes I have fully participated in the care of the patient.: Yes I have reviewed all pertinent clinical information, including history, physical exam and plan: Yes Notes (Text): This is a late computer entry for 12/04/16. Patient seen, examined, and case discussed with day-time resident. Patient seen during rounds this afternoon. Patient is awake, alert, pleasant, no acute distress. Patient reports he has cough but reports Mucinex and cough syrup help him. Patient's right lower extremity noticeably improved edema. Patient reports he loves to eat dark leafy green vegetables; explained to the patient that with affect his Coumadin. Diet adjusted in the computer to account for this. Patient on therapuetic Lovenox; will be bridged to Coumadin for therapuetic INR to be ready for discharge. Patient ordered for Coumadin 7.5mg PO tonight. Follow -up INR. Electrolytes repleted Assessment/Plan 1. Acute DVT * Heme-onc (Dr. Anisha Davis) on board-->help appreciated * Venous duplex (12/01/16): acute thrombosis of the right common femoral and posterior tibial veins with mild reduction of the venous return * CT Angio (12/01/16): no pulmonary embolism, bibasilar atelectasis with ground glass pneuminitis in the right upper lobe and small left pleural effusion. Cirrhosis with splenomegaly, Liver cyst, Gallstones, Small amount of intra- abdominal ascites. * Patient is on therapeutic Lovenox; monitor H/H * contraindications to scds secondary to acute DVT * Diet adjusted to allow for effectivness of Coumadin * Patient status changed to inpatient given patient will need to be bridged to Coumadin. Patient cannot afford NOAC. Patient is homeless. Confirmed with social work today * To be given Coumadin 7.5mg PO X1, f/u INR 2. Hypokalemia * replete potassium and Mg2+ * monitor and replete if necessary 3. Anemia * monitor H/H * likely chronic disease per heme-onc 4. Cough * mucinex 600mg PO bid * promethazine with codeine 5ml PO Q 4hour PRN cough * albuterol q 6 prn shortness of breathe * CT Angio (12/01/16): no pulmonary embolism, bibasilar atelectasis with ground glass pneuminitis in the right upper lobe and small left pleural effusion. Cirrhosis with splenomegaly, Liver cyst, Gallstones, Small amount of intra- abdominal ascites. 5. GI/DVT ppx * protonix 40mg daily for GI ppx * contraindications to scds secondary to acute DVT * therapuetic Lovenox bridge to Coumadin * Walks in the room Disposition: patient lives in alf; cannot afford NOAC; Patient to be bridged to Lovenox to Coumadin, (affordable option) for patient with first time DVT. Patient will be ready for discharge when INR is therapeutic (2-3). F/u INR in AM
[2016-12-04 16:02] VITALS: RESP 20
--- NOTE | 2016-12-05 00:30 | CP.PCM.PN ---
<Jeaneth Javier - Last Filed: 12/05/16 01:16> Subjective - Date & Time of Evaluation Date of Evaluation: 12/05/16 Time of Evaluation: 07:00 - Subjective Subjective: PGY1- Medicine Note- Dr. Cisneros's Service Patient seen and examined at bedside and in no acute distress. Patient is under his sheets and blanket and it slightly sweaty. Patient denies fevers, chills, sob, chest pain, abdominal pain, n/v, c/p. Objective - Vital Signs/Intake and Output Vital Signs (last 24 hours): Temp Pulse Resp BP Pulse Ox 98.7 F 77 20 134/84 99 12/04/16 15:00 12/04/16 15:00 12/04/16 15:00 12/04/16 15:00 12/04/16 15:00 Intake and Output: 12/04/16 12/05/16 18:59 06:59 Intake Total 400 Balance 400 - Medications Medications: Current Medications Albuterol (Ventolin Hfa 90 Mcg/Actuation (8 G)) 1 puff INH RQ6 PRN PRN Reason: Shortness of Breath Last Admin: 12/03/16 12:43 Dose: 1 puff Chlordiazepoxide (Librium) 25 mg PO Q12 PRN PRN Reason: tremor Last Admin: 12/04/16 09:20 Dose: 25 mg Enoxaparin Sodium (Lovenox) 80 mg SC Q12H [facility] Last Admin: 12/04/16 17:50 Dose: 80 mg Guaifenesin (Mucinex La) 600 mg PO BID [facility] Last Admin: 12/04/16 17:49 Dose: 600 mg Promethazine HCl/Codeine (Phenergan/Codeine Oral Syrup) 5 ml PO Q4 PRN PRN Reason: Cough and congestion Last Admin: 12/04/16 17:50 Dose: 5 ml - Labs Labs: 12/04/16 07:40 12/04/16 07:40 PT 15.3 SECONDS (9.7-12.2) H 12/04/16 07:40 INR 1.4 12/04/16 07:40 APTT 43 SECONDS (21-34) H D 12/01/16 07:36 - Constitutional Appears: Well, Non-toxic, No Acute Distress - Head Exam Head Exam: ATRAUMATIC, NORMAL INSPECTION, NORMOCEPHALIC - Eye Exam Eye Exam: EOMI, Normal appearance - ENT Exam ENT Exam: Mucous Membranes Moist - Neck Exam Neck Exam: Full ROM. absent: Lymphadenopathy - Respiratory Exam Respiratory Exam: Clear to Ausculation Bilateral, NORMAL BREATHING PATTERN. absent: Rales, Rhonchi, Wheezes, Respiratory Distress, Stridor - Cardiovascular Exam Cardiovascular Exam: REGULAR RHYTHM, RRR. absent: Gallop, Rubs, Murmur - GI/Abdominal Exam GI & Abdominal Exam: Soft, Normal Bowel Sounds - Extremities Exam Extremities Exam: Pedal Edema - Neurological Exam Neurological Exam: Alert, Awake, Oriented x3 - Psychiatric Exam Psychiatric exam: Normal Affect, Normal Mood - Skin Skin Exam: Intact, Normal Color, Warm Assessment and Plan - Assessment and Plan (Free Text) Assessment: Acute DVT * DVT confirmed right LE common femoral and post tibial by US * likely 2/2 recent hospitalization * lovenox 80 q 12 * Coumadin 7.5 mg PO started 12/01 * F/U INR daily until therapeutic; currently 1.4 (12/04) * Diet - no dark leafy greens * CT angio: negative for PE; Bibasilar atelectasis with groundglass pneumonitis in the right upper lobe and small left pleural effusion; Cirrhosis with splenomegaly; Liver cyst; Gallstones; Small amount of intra-abdominal ascites * heme/onc (Dr. 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 Davis) * w/u consistent with anemia of chronic disease * transfusion support PRN * consent for blood obtained * will order 1 unit as standby while patient is on therapuetic Lovenox to cover for DVT Cough * mucinex 600 mg PO bid * promethazine with codeine 5ml PO Q 4hour PRn * albuterol q 6 prn SOB * Chest CT negative for PE and pneumonia GI/DVT ppx * protonix 40mg daily for GI ppx * contraindications to scds 2/2 acute DVT * therapuetic Lovenox and started coumadin (12/01) * activity: bedrest Disposition: Patient unable to afford outpatient therapy and will need to stay until INR therapeutic <Vincent Cisnerosia V - Last Filed: 12/05/16 09:49> Objective - Vital Signs/Intake and Output Vital Signs (last 24 hours): Temp Pulse Resp BP Pulse Ox 97.4 F L 79 20 147/91 H 96 12/05/16 00:00 12/05/16 00:00 12/05/16 00:00 12/05/16 00:00 12/05/16 00:00 Intake and Output: 12/05/16 12/05/16 06:59 18:59 Intake Total 250 Balance 250 - Medications Medications: Current Medications Albuterol (Ventolin Hfa 90 Mcg/Actuation (8 G)) 1 puff INH RQ6 PRN PRN Reason: Shortness of Breath Last Admin: 12/05/16 07:55 Dose: 1 puff Chlordiazepoxide (Librium) 25 mg PO Q12 PRN PRN Reason: tremor Last Admin: 12/04/16 09:20 Dose: 25 mg Enoxaparin Sodium (Lovenox) 80 mg SC Q12H [facility] Last Admin: 12/05/16 05:06 Dose: 80 mg Guaifenesin (Mucinex La) 600 mg PO BID [facility] Last Admin: 12/04/16 17:49 Dose: 600 mg Magnesium Sulfate/Dextrose (Magnesium Sulfate 1 Gm/100 Ml D5w) 1 gm in 100 mls @ 300 mls/hr IVPB Q30M [facility] Stop: 12/05/16 10:19 Promethazine HCl/Codeine (Phenergan/Codeine Oral Syrup) 5 ml PO Q4 PRN PRN Reason: Cough and congestion Last Admin: 12/04/16 17:50 Dose: 5 ml Warfarin Sodium (Coumadin) 7.5 mg PO 1800 [facility] Stop: 12/05/16 18:01 - Labs Labs: 12/05/16 08:18 12/05/16 08:18 PT 17.1 SECONDS (9.7-12.2) H 12/05/16 08:18 INR 1.5 12/05/16 08:18 APTT 43 SECONDS (21-34) H D 12/01/16 07:36 Attending/Attestation - Attestation I have personally seen and examined this patient.: Yes I have fully participated in the care of the patient.: Yes I have reviewed all pertinent clinical information, including history, physical exam and plan: Yes Notes (Text): Patient seen, examined, and case discussed with day-time resident. Patient seen during rounds this morning. Patient seen walking to his bed. Patient denies headache, denies shortness of breathe, reports dry cough, denies abdominal pain, denies black stool, denies BRBPR, denies complaints. Patient's INR mildly improved to 1.5. Ordered for Coumadin 7.5mg PO for tonight. Magnesium is low; repleted today. Explained to the patient, when he is INR is 2-->will need 3-6 months of therapy for first time DVT. Patient on therapuetic Lovenox; will be bridged to Coumadin for therapuetic INR to be ready for discharge. Patient ordered for Coumadin 7.5mg PO tonight. Follow -up INR. Electrolytes repleted Assessment/Plan 1. Acute DVT * Heme-onc (Dr. Anisha Davis) on board-->help appreciated * Venous duplex (12/01/16): acute thrombosis of the right common femoral and posterior tibial veins with mild reduction of the venous return * CT Angio (12/01/16): no pulmonary embolism, bibasilar atelectasis with ground glass pneuminitis in the right upper lobe and small left pleural effusion. Cirrhosis with splenomegaly, Liver cyst, Gallstones, Small amount of intra- abdominal ascites. * Patient is on therapeutic Lovenox; monitor H/H * contraindications to scds secondary to acute DVT * Diet adjusted to allow for effectivness of Coumadin * Patient status changed to inpatient given patient will need to be bridged to Coumadin. Patient cannot afford NOAC. Patient is homeless. Confirmed with social work today * To be given Coumadin 7.5mg PO X1, f/u INR 2. Hypokalemia * replete potassium and Mg2+ * monitor and replete if necessary 3. Anemia * monitor H/H * likely chronic disease per heme-onc 4. Cough * mucinex 600mg PO bid * promethazine with codeine 5ml PO Q 4hour PRN cough * albuterol q 6 prn shortness of breathe * CT Angio (12/01/16): no pulmonary embolism, bibasilar atelectasis with ground glass pneuminitis in the right upper lobe and small left pleural effusion. Cirrhosis with splenomegaly, Liver cyst, Gallstones, Small amount of intra- abdominal ascites. 5. GI/DVT ppx * protonix 40mg daily for GI ppx * contraindications to scds secondary to acute DVT * therapuetic Lovenox bridge to Coumadin * Walks in the room Disposition: patient lives in [facility]dc; cannot afford NOAC; Patient to be bridged to Lovenox to Coumadin, (affordable option) for patient with first time DVT. Patient will be ready for discharge when INR is therapeutic (2-3). F/u INR in AM. Patient will need to be established in the clinic when he is ready to be discharge to repeat INR checks to adjust Coumadin. Patient refused Pneumonia vaccination and recently underwent hospitalization which included pneumonia. Will need pneumonia vaccination when follow-up in the clinic.
[2016-12-05 03:59] LABS: CARDIOLIPIN AB (IGA) <11 APL (<=11)
[2016-12-05] MEDS: Enoxaparin 80 mg Syringe SC SCH ×3 (05:06→18:27)
[2016-12-05 05:20] LABS: PHOSPHATIDYLSERINE AB IGM <25 U/mL (<25)
[2016-12-05 07:02] LABS: B2 GLYCOPROTEIN I AB(IGA) <9 SAU (<=20); B2 GLYCOPROTEIN I AB(IGG) <9 SGU (<=20); B2 GLYCOPROTEIN I AB(IGM) <9 SMU (<=20)
[2016-12-05 07:55] LABS: PHOSPHATIDYLSERINE AB IGA <20 U/mL (<20)
[2016-12-05] MEDS: Albuterol HFA 90 mcg/actuation (8 g) INH PRN ×2 (07:55→13:28)
[2016-12-05 08:34] LABS: BASO # 0.1 K/uL (0.0-0.2); BASO % 0.9 % (0.0-2.0); EOS # 0.3 K/uL (0.0-0.7); EOS % 4.5 % (0.0-4.0); HEMATOCRIT 26.4 % (35.0-51.0); LYMPH # 1.3 K/uL (1.0-4.3); LYMPH % 20.3 % (20.0-40.0); MEAN CELL VOLUME 92.2 fL (80.0-94.0); MEAN CORPUSCULAR HEMOGLOBIN 30.7 pg (27.0-31.0); MEAN CORPUSCULAR HGB CONC 33.3 g/dL (33.0-37.0); MEAN PLATELET VOLUME 8.6 fL (7.2-11.7); MONO # 0.4 K/uL (0.0-0.8); MONO % 5.8 % (0.0-10.0); RED CELL DISTRIBUTION WIDTH 15.9 % (11.5-14.5); WHITE BLOOD COUNT 6.3 K/uL (4.8-10.8)
[2016-12-05 09:13] LABS: CHLORIDE 108 mmol/L (98-107)
[2016-12-05 09:14] LABS: POTASSIUM 4.4 mmol/L (3.6-5.2); SODIUM 144 mmol/L (132-148)
[2016-12-05 09:16] LABS: GFR AFRICAN-AMERICAN > 60
[2016-12-05 09:17] LABS: ALB/GLOB RATIO 0.8 (1.0-2.1); ALKALINE PHOSPHATASE 177 U/L (38-126); ALT/SGPT 37 U/L (21-72); AST/SGOT 36 U/L (17-59); BILIRUBIN,TOTAL 0.8 mg/dL (0.2-1.3); BLOOD UREA NITROGEN 12 mg/dL (9-20); CARBON DIOXIDE 28 mmol/L (22-30); GLUCOSE,RANDOM 84 mg/dL (75-110); PHOSPHOROUS 4.5 mg/dL (2.5-4.5); TOTAL PROTEIN 7.9 g/dL (6.3-8.3)
[2016-12-05 09:18] LABS: CALCIUM 8.9 mg/dl (8.6-10.4); INR 1.5; MAGNESIUM 1.4 mg/dL (1.6-2.3)
[2016-12-05] MEDS: Magnesium Sulfate 1 gm in D5W 1 GM/100 ML BAG IVPB SCH ×2 (09:51→10:26)
[2016-12-05] MEDS: guaiFENesin 600 mg ER Tab PO SCH ×2 (09:51→18:23)
[2016-12-05] MEDS: Promethazine/Cod 6.25mg-10mg/5ml Syr UD PO PRN (18:23)
--- NOTE | 2016-12-05 21:16 | CP.PCM.PN ---
Subjective - Date & Time of Evaluation Date of Evaluation: 12/05/16 Time of Evaluation: 19:00 - Subjective Subjective: Leg swelling improved Objective - Vital Signs/Intake and Output Vital Signs (last 24 hours): Temp Pulse Resp BP Pulse Ox 99.1 F 73 20 130/83 98 12/05/16 16:00 12/05/16 16:00 12/05/16 16:00 12/05/16 16:00 12/05/16 16:00 Intake and Output: 12/05/16 12/06/16 18:59 06:59 Intake Total 970 Balance 970 - Medications Medications: Current Medications Albuterol (Ventolin Hfa 90 Mcg/Actuation (8 G)) 1 puff INH RQ6 PRN PRN Reason: Shortness of Breath Last Admin: 12/05/16 13:28 Dose: 1 puff Chlordiazepoxide (Librium) 25 mg PO Q12 PRN PRN Reason: tremor Last Admin: 12/05/16 18:26 Dose: 25 mg Enoxaparin Sodium (Lovenox) 80 mg SC Q12H [facility] Last Admin: 12/05/16 18:27 Dose: 80 mg Guaifenesin (Mucinex La) 600 mg PO BID [facility] Last Admin: 12/05/16 18:23 Dose: 600 mg Promethazine HCl/Codeine (Phenergan/Codeine Oral Syrup) 5 ml PO Q4 PRN PRN Reason: Cough and congestion Last Admin: 12/05/16 18:23 Dose: 5 ml - Labs Labs: 12/05/16 08:18 12/05/16 08:18 PT 17.1 SECONDS (9.7-12.2) H 12/05/16 08:18 INR 1.5 12/05/16 08:18 APTT 43 SECONDS (21-34) H D 12/01/16 07:36 - Head Exam Head Exam: ATRAUMATIC - Eye Exam Eye Exam: Normal appearance - ENT Exam ENT Exam: Mucous Membranes Dry - Respiratory Exam Respiratory Exam: NORMAL BREATHING PATTERN - Cardiovascular Exam Cardiovascular Exam: +S1, +S2 - GI/Abdominal Exam GI & Abdominal Exam: Normal Bowel Sounds - Extremities Exam Extremities Exam: Pedal Edema Assessment and Plan (1) DVT (deep venous thrombosis) Assessment & Plan: on therapeutic anticoagulation f/u inherited thrombophilia w/u as outpatient Status: Acute (2) Anemia Assessment & Plan: chronic disease Status: Acute (3) Coagulopathy Assessment & Plan: secondary to anticoagulation Status: Acute
--- NOTE | 2016-12-06 00:08 | CP.PCM.PN ---
<Jeaneth Javier - Last Filed: 12/06/16 00:05> Subjective - Date & Time of Evaluation Date of Evaluation: 12/06/16 Time of Evaluation: 07:00 - Subjective Subjective: PGY1- Medicine Note- Dr. Cisneros's Service Patient seen and examined at bedside and in no acute distress. Patient is having some coughing today. It is difficult for the patient to take deep breaths, however he does not feel short of breath. Patient denies fevers, chills, chest pain, abdominal pain, n/v, c/d. Objective - Vital Signs/Intake and Output Vital Signs (last 24 hours): Temp Pulse Resp BP Pulse Ox 99.1 F 73 20 130/83 98 12/05/16 16:00 12/05/16 16:00 12/05/16 16:00 12/05/16 16:00 12/05/16 16:00 Intake and Output: 12/05/16 12/06/16 18:59 06:59 Intake Total 970 Balance 970 - Medications Medications: Current Medications Albuterol (Ventolin Hfa 90 Mcg/Actuation (8 G)) 1 puff INH RQ6 PRN PRN Reason: Shortness of Breath Last Admin: 12/05/16 13:28 Dose: 1 puff Chlordiazepoxide (Librium) 25 mg PO Q12 PRN PRN Reason: tremor Last Admin: 12/05/16 18:26 Dose: 25 mg Enoxaparin Sodium (Lovenox) 80 mg SC Q12H [facility] Last Admin: 12/05/16 18:27 Dose: 80 mg Guaifenesin (Mucinex La) 600 mg PO BID [facility] Last Admin: 12/05/16 18:23 Dose: 600 mg Promethazine HCl/Codeine (Phenergan/Codeine Oral Syrup) 5 ml PO Q4 PRN PRN Reason: Cough and congestion Last Admin: 12/05/16 18:23 Dose: 5 ml - Labs Labs: 12/05/16 08:18 12/05/16 08:18 PT 17.1 SECONDS (9.7-12.2) H 12/05/16 08:18 INR 1.5 12/05/16 08:18 APTT 43 SECONDS (21-34) H D 12/01/16 07:36 - Constitutional Appears: Non-toxic, No Acute Distress - Head Exam Head Exam: ATRAUMATIC, NORMAL INSPECTION, NORMOCEPHALIC - Eye Exam Eye Exam: EOMI, Normal appearance, PERRL - ENT Exam ENT Exam: Mucous Membranes Moist, Normal Exam - Neck Exam Neck Exam: Full ROM, Normal Inspection. absent: Lymphadenopathy - Respiratory Exam Respiratory Exam: Clear to Ausculation Bilateral, NORMAL BREATHING PATTERN. absent: Rales, Rhonchi, Wheezes, Stridor - Cardiovascular Exam Cardiovascular Exam: REGULAR RHYTHM, RRR, +S1, +S2. absent: Murmur - GI/Abdominal Exam GI & Abdominal Exam: Soft, Normal Bowel Sounds. absent: Tenderness - Extremities Exam Extremities Exam: Full ROM, Normal Inspection. absent: Pedal Edema, Tenderness - Neurological Exam Neurological Exam: Alert, Awake, Oriented x3 - Psychiatric Exam Psychiatric exam: Normal Affect, Normal Mood - Skin Skin Exam: Intact, Normal Color, Warm Assessment and Plan - Assessment and Plan (Free Text) Assessment: Acute DVT * DVT confirmed right LE common femoral and post tibial by US * likely 2/2 recent hospitalization * lovenox 80 q 12 * Coumadin 7.5 mg PO started 12/01 * F/U INR daily until therapeutic; currently 1.5 (12/05) * Diet - no dark leafy greens * CT angio: negative for PE; Bibasilar atelectasis with groundglass pneumonitis in the right upper lobe and small left pleural effusion; Cirrhosis with splenomegaly; Liver cyst; Gallstones; Small amount of intra-abdominal ascites * heme/onc (Dr. 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 Davis) * w/u consistent with anemia of chronic disease * transfusion support PRN * consent for blood obtained * will order 1 unit as standby while patient is on therapuetic Lovenox to cover for DVT Cough * mucinex 600 mg PO bid * promethazine with codeine 5ml PO Q 4hour PRn * albuterol q 6 prn SOB * Chest CT negative for PE and pneumonia GI/DVT ppx * protonix 40mg daily for GI ppx * contraindications to scds 2/2 acute DVT * therapuetic Lovenox and started coumadin (12/01) * activity: bedrest Disposition: Patient unable to afford outpatient therapy and will need to stay until INR therapeutic <Chelsey Cisneros V - Last Filed: 12/06/16 09:05> Objective - Vital Signs/Intake and Output Vital Signs (last 24 hours): Temp Pulse Resp BP Pulse Ox 97.7 F 83 20 137/86 100 12/06/16 07:59 12/06/16 07:59 12/06/16 07:59 12/06/16 07:59 12/06/16 07:59 Intake and Output: 12/06/16 12/06/16 06:59 18:59 Intake Total 180 Balance 180 - Medications Medications: Current Medications Albuterol (Ventolin Hfa 90 Mcg/Actuation (8 G)) 1 puff INH RQ6 PRN PRN Reason: Shortness of Breath Last Admin: 12/05/16 13:28 Dose: 1 puff Chlordiazepoxide (Librium) 25 mg PO Q12 PRN PRN Reason: tremor Last Admin: 12/05/16 18:26 Dose: 25 mg Enoxaparin Sodium (Lovenox) 80 mg SC Q12H [facility] Last Admin: 12/06/16 05:21 Dose: 80 mg Guaifenesin (Mucinex La) 600 mg PO BID [facility] Last Admin: 12/05/16 18:23 Dose: 600 mg Magnesium Sulfate/Dextrose (Magnesium Sulfate 1 Gm/100 Ml D5w) 1 gm in 100 mls @ 200 mls/hr IVPB ONCE ONE Stop: 12/06/16 09:28 Promethazine HCl/Codeine (Phenergan/Codeine Oral Syrup) 5 ml PO Q4 PRN PRN Reason: Cough and congestion Last Admin: 12/06/16 05:21 Dose: 5 ml Warfarin Sodium (Coumadin) 5 mg PO 1800 [facility] Stop: 12/06/16 18:01 - Labs Labs: 12/06/16 08:05 12/06/16 08:05 PT 18.9 SECONDS (9.7-12.2) H 12/06/16 08:05 INR 1.7 12/06/16 08:05 APTT 43 SECONDS (21-34) H D 12/01/16 07:36 Attending/Attestation - Attestation I have personally seen and examined this patient.: Yes I have fully participated in the care of the patient.: Yes I have reviewed all pertinent clinical information, including history, physical exam and plan: Yes Notes (Text): Patient seen, examined, and case discussed with day-time resident. Patient seen during rounds this morning. Patient denies headache, denies shortness of breathe, reports dry cough, denies abdominal pain, denies black stool, denies BRBPR, denies complaints. Patient's INR improved to 1.7. Ordered for Coumadin 5mg PO for tonight. Magnesium is low; repleted today. Explained to the patient, when he is INR is 2-->will need 3-6 months of therapy for first time DVT. Patient on therapuetic Lovenox; will be bridged to Coumadin for therapuetic INR to be ready for discharge. Per heme-onc, patient may follow-up outpatient for inherited thrombophilia workup. i Assessment/Plan 1. Acute DVT * Heme-onc (Dr. Anisha Davis) on board-->help appreciated * Venous duplex (12/01/16): acute thrombosis of the right common femoral and posterior tibial veins with mild reduction of the venous return * CT Angio (12/01/16): no pulmonary embolism, bibasilar atelectasis with ground glass pneumonitis in the right upper lobe and small left pleural effusion. Cirrhosis with splenomegaly, Liver cyst, Gallstones, Small amount of intra- abdominal ascites. * Patient is on therapeutic Lovenox; monitor H/H * contraindications to scds secondary to acute DVT * Diet adjusted to allow for effectiveness of Coumadin * Patient status changed to inpatient given patient will need to be bridged to Coumadin. Patient cannot afford NOAC. Patient is homeless. * To be given Coumadin 5mg PO X1, f/u INR 2. Hypokalemia * replete potassium and Mg2+ * monitor and replete if necessary 3. Anemia * monitor H/H * likely chronic disease per heme-onc 4. Cough * mucinex 600mg PO bid * promethazine with codeine 5ml PO Q 4hour PRN cough * albuterol q 6 prn shortness of breathe * CT Angio (12/01/16): no pulmonary embolism, bibasilar atelectasis with ground glass pneumonitis in the right upper lobe and small left pleural effusion. Cirrhosis with splenomegaly, Liver cyst, Gallstones, Small amount of intra- abdominal ascites. 5. GI/DVT ppx * protonix 40mg daily for GI ppx * contraindications to scds secondary to acute DVT * therapuetic Lovenox bridge to Coumadin * Walks in the room Disposition: patient lives in detention; cannot afford NOAC; Patient to be bridged to Lovenox to Coumadin, (affordable option) for patient with first time DVT. Patient will be ready for discharge when INR is therapeutic (2-3). F/u INR in AM. Patient will need to be established in the clinic when he is ready to be discharge to repeat INR checks to adjust Coumadin. Patient refused Pneumonia vaccination and recently underwent hospitalization which included pneumonia. Will need pneumonia vaccination when follow-up in the clinic.
[2016-12-06] MEDS: Promethazine/Cod 6.25mg-10mg/5ml Syr UD PO PRN ×2 (05:21→17:35)
[2016-12-06] MEDS: Enoxaparin 80 mg Syringe SC SCH ×2 (05:21→17:35)
[2016-12-06] MEDS: Albuterol HFA 90 mcg/actuation (8 g) INH PRN ×2 (07:43→13:25)
[2016-12-06 08:13] LABS: BASO # 0.1 K/uL (0.0-0.2); BASO % 1.1 % (0.0-2.0); EOS # 0.3 K/uL (0.0-0.7); EOS % 4.5 % (0.0-4.0); HEMATOCRIT 27.5 % (35.0-51.0); LYMPH # 1.4 K/uL (1.0-4.3); LYMPH % 23.3 % (20.0-40.0); MEAN CELL VOLUME 92.3 fL (80.0-94.0); MEAN CORPUSCULAR HEMOGLOBIN 30.1 pg (27.0-31.0); MEAN CORPUSCULAR HGB CONC 32.7 g/dL (33.0-37.0); MEAN PLATELET VOLUME 8.9 fL (7.2-11.7); MONO # 0.4 K/uL (0.0-0.8); MONO % 6.4 % (0.0-10.0); RED CELL DISTRIBUTION WIDTH 15.8 % (11.5-14.5)
[2016-12-06 08:29] LABS: INR 1.7
[2016-12-06 08:36] LABS: ALB/GLOB RATIO 0.8 (1.0-2.1); ALKALINE PHOSPHATASE 168 U/L (38-126); ALT/SGPT 37 U/L (21-72); AST/SGOT 34 U/L (17-59); BILIRUBIN,TOTAL 0.6 mg/dL (0.2-1.3); BLOOD UREA NITROGEN 11 mg/dL (9-20); CARBON DIOXIDE 23 mmol/L (22-30); CHLORIDE 106 mmol/L (98-107); GFR AFRICAN-AMERICAN > 60; GLUCOSE,RANDOM 84 mg/dL (75-110); MAGNESIUM 1.6 mg/dL (1.6-2.3); SODIUM 141 mmol/L (132-148); TOTAL PROTEIN 7.4 g/dL (6.3-8.3)
[2016-12-06] MEDS ORDERED: Magnesium Sulfate 1 gm in D5W 1 GM/100 ML BAG IVPB ONE (08:59)
[2016-12-06] MEDS: guaiFENesin 600 mg ER Tab PO SCH ×2 (09:52→17:35)
--- NOTE | 2016-12-07 01:54 | CP.PCM.PN ---
<Abby Orantes Ann - Last Filed: 12/07/16 07:16> Subjective - Date & Time of Evaluation Date of Evaluation: 12/07/16 Time of Evaluation: 00:40 - Subjective Subjective: PGY 1 Medicine note Patient was seen and examined at bedside. Patient states that he is doing well and has no complaints. Patient denies chest pain, SOB, palpitations, nausea, vomiting, abdominal pain, claudication or b/l calf tenderness. Objective - Vital Signs/Intake and Output Vital Signs (last 24 hours): Temp Pulse Resp BP Pulse Ox 98.3 F 76 20 126/79 98 12/07/16 00:00 12/07/16 00:00 12/07/16 00:00 12/07/16 00:00 12/07/16 00:00 Intake and Output: 12/06/16 12/07/16 18:59 06:59 Intake Total 780 Balance 780 - Medications Medications: Current Medications Albuterol (Ventolin Hfa 90 Mcg/Actuation (8 G)) 1 puff INH RQ6 PRN PRN Reason: Shortness of Breath Last Admin: 12/06/16 13:25 Dose: 1 puff Chlordiazepoxide (Librium) 25 mg PO Q12 PRN PRN Reason: tremor Last Admin: 12/06/16 21:24 Dose: 25 mg Enoxaparin Sodium (Lovenox) 80 mg SC Q12H [facility] Last Admin: 12/06/16 17:35 Dose: 80 mg Guaifenesin (Mucinex La) 600 mg PO BID [facility] Last Admin: 12/06/16 17:35 Dose: 600 mg Promethazine HCl/Codeine (Phenergan/Codeine Oral Syrup) 5 ml PO Q4 PRN PRN Reason: Cough and congestion Last Admin: 12/06/16 17:35 Dose: 5 ml - Labs Labs: 12/06/16 08:05 12/06/16 08:05 PT 18.9 SECONDS (9.7-12.2) H 12/06/16 08:05 INR 1.7 12/06/16 08:05 APTT 43 SECONDS (21-34) H D 12/01/16 07:36 - Constitutional Appears: Well, No Acute Distress - Head Exam Head Exam: ATRAUMATIC, NORMAL INSPECTION - Eye Exam Eye Exam: EOMI, Normal appearance - Respiratory Exam Respiratory Exam: Clear to Ausculation Bilateral, NORMAL BREATHING PATTERN - Cardiovascular Exam Cardiovascular Exam: REGULAR RHYTHM, +S1, +S2 - GI/Abdominal Exam GI & Abdominal Exam: Soft, Normal Bowel Sounds - Extremities Exam Extremities Exam: Normal Inspection. absent: Calf Tenderness, Pedal Edema, Tenderness - Neurological Exam Neurological Exam: Alert, Awake, Oriented x3 - Psychiatric Exam Psychiatric exam: Normal Affect, Normal Mood - Skin Skin Exam: Normal Color, Warm Assessment and Plan (1) DVT (deep venous thrombosis) Assessment & Plan: DVT confirmed right LE common femoral and post tibial by US * likely 2/2 recent hospitalization * lovenox 80 qh 12 * Coumadin 7.5 mg PO started 12/01 * F/U INR daily until therapeutic; currently 1.7 (12/06) * Diet - no dark leafy greens * CT angio: negative for PE; Bibasilar atelectasis with groundglass pneumonitis in the right upper lobe and small left pleural effusion; Cirrhosis with splenomegaly; Liver cyst; Gallstones; Small amount of intra-abdominal ascites * heme/onc (Dr. 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 Davis) * w/u consistent with anemia of chronic disease * transfusion support PRN * Continue to monitor H/H Status: Acute (4) Alcohol withdrawal Assessment & Plan: Librium 25 mg PO q12 prn Status: Acute (5) Cough Assessment & Plan: * mucinex 600 mg PO bid * promethazine with codeine 5ml PO Q 4hour PRn * albuterol q 6 prn SOB * Chest CT negative for PE and pneumonia Status: Acute (6) Prophylactic measure Assessment & Plan: * SCDs contraindicated due to acute DVT * Protonix 40mg daily for GI ppx * Therapuetic Lovenox bridge to Coumadin Status: Acute <Von Burkett - Last Filed: 12/07/16 14:46> Objective - Vital Signs/Intake and Output Vital Signs (last 24 hours): Temp Pulse Resp BP Pulse Ox 98.0 F 75 20 138/80 95 12/07/16 08:58 12/07/16 08:58 12/07/16 08:58 12/07/16 08:58 12/07/16 08:58 Intake and Output: 12/07/16 12/07/16 06:59 18:59 Intake Total 240 Balance 240 - Medications Medications: Current Medications Albuterol (Ventolin Hfa 90 Mcg/Actuation (8 G)) 1 puff INH RQ6 PRN PRN Reason: Shortness of Breath Last Admin: 12/07/16 07:38 Dose: 1 puff Chlordiazepoxide (Librium) 25 mg PO Q12 PRN PRN Reason: tremor Last Admin: 12/06/16 21:24 Dose: 25 mg Enoxaparin Sodium (Lovenox) 80 mg SC Q12H [facility] Last Admin: 12/07/16 05:23 Dose: 80 mg Guaifenesin (Mucinex La) 600 mg PO BID [facility] Last Admin: 12/07/16 10:54 Dose: 600 mg Promethazine HCl/Codeine (Phenergan/Codeine Oral Syrup) 5 ml PO Q4 PRN PRN Reason: Cough and congestion Last Admin: 12/07/16 05:23 Dose: 5 ml Warfarin Sodium (Coumadin) 5 mg PO 1800 [facility] Stop: 12/07/16 18:01 - Labs Labs: 12/07/16 08:18 12/07/16 08:18 PT 20.6 SECONDS (9.7-12.2) H 12/07/16 08:18 INR 1.8 12/07/16 08:18 APTT 43 SECONDS (21-34) H D 12/01/16 07:36 Attending/Attestation - Attestation I have personally seen and examined this patient.: Yes I have fully participated in the care of the patient.: Yes I have reviewed all pertinent clinical information, including history, physical exam and plan: Yes Notes (Text): 12/07/16 14:34 Hospitalist Progress Note Patient was seen and examined at 12 PM Admitted on 11/30/16 with complaints of bilateral leg swelling for 3 days with right leg greater than left leg. He was found to have Right Femoral DVT. Currently upon FULL ROS: NO chest pain, NO palpitations NO SOB/Cough NO abdominal pain NO n/v/d/c NO burning/pain with urination NO lightheadedness/dizziness NO headaches NO other complaints upon FULL ROS Exam: General: AAOx3, NAD HEENT: NCA, EOMI, PERRLA, NO lymphadenopathy, NO thyromegaly, NO pharyngeal erythema/exudate Cardio: NS1 and NS2, NO M/R/G Respiratory: CTA B/L, NO R/R/W GI: BSx4, Soft, Central Obesity therefore Liver and Spleen could not be adequately palpated, NO guarding/rebound tenderness Ext: Bilateral Pulses UE and LE are strong and equal, Capillary Refill is 2 seconds, NO edema Neuro: CN II through XII are grossly intact Assessments: 1). Right Femoral DVT: INR is 1.8 today, coumadin 5 mg x 1 dose tonight 2). Hypokalemia: resolved 3). Hx Alcohol Abuse/Alcohol Withdrawl Seizures: librium 25 mg PO Q12H prn tremor 4). Anemia of Chronic Disease/Thrombocytopenia: Hematology Dr. Davis transfuse PRN 5). Hx Psoriasis: currently not an issue 6). Hx Respiratory Failure/Bilateral Pneumonia/Left Pneumothorax: treated here from 10/21/16 through 11/27/16 7). Hx Acute Renal Failure: treated here with HD during admission 10/21/16 through 11/27/16. Bun/Cr and eGFR are WNL 8). Hx Tremor Likely Secondary to Basal Ganglia Dysfunction Secondary to Alcohol Abuse: no tremor noted on exam As long as INR is therapeutic then we will discharge patient after making sure that he has appropriate follow up set up with the [facility]. Von Burkett D.O.
[2016-12-07] MEDS: Promethazine/Cod 6.25mg-10mg/5ml Syr UD PO PRN (05:23)
[2016-12-07] MEDS: Enoxaparin 80 mg Syringe SC SCH ×2 (05:23→17:32)
[2016-12-07] MEDS: Albuterol HFA 90 mcg/actuation (8 g) INH PRN (07:38)
[2016-12-07 08:23] LABS: BASO # 0.1 K/uL (0.0-0.2); BASO % 1.5 % (0.0-2.0); EOS # 0.2 K/uL (0.0-0.7); EOS % 3.9 % (0.0-4.0); HEMATOCRIT 26.4 % (35.0-51.0); LYMPH # 1.5 K/uL (1.0-4.3); LYMPH % 24.6 % (20.0-40.0); MEAN CELL VOLUME 93.1 fL (80.0-94.0); MEAN CORPUSCULAR HEMOGLOBIN 30.6 pg (27.0-31.0); MEAN CORPUSCULAR HGB CONC 32.8 g/dL (33.0-37.0); MEAN PLATELET VOLUME 8.9 fL (7.2-11.7); MONO # 0.4 K/uL (0.0-0.8); RED CELL DISTRIBUTION WIDTH 16.5 % (11.5-14.5); WHITE BLOOD COUNT 5.9 K/uL (4.8-10.8)
[2016-12-07 08:33] LABS: INR 1.8
[2016-12-07 08:36] LABS: ALB/GLOB RATIO 0.7 (1.0-2.1); ALKALINE PHOSPHATASE 169 U/L (38-126); ALT/SGPT 37 U/L (21-72); AST/SGOT 33 U/L (17-59); BILIRUBIN,TOTAL 0.6 mg/dL (0.2-1.3); BLOOD UREA NITROGEN 10 mg/dL (9-20); CALCIUM 9.1 mg/dl (8.6-10.4); CARBON DIOXIDE 26 mmol/L (22-30); CHLORIDE 104 mmol/L (98-107); GFR AFRICAN-AMERICAN > 60; GLUCOSE,RANDOM 82 mg/dL (75-110); MAGNESIUM 1.6 mg/dL (1.6-2.3); POTASSIUM 4.5 mmol/L (3.6-5.2); SODIUM 143 mmol/L (132-148); TOTAL PROTEIN 7.8 g/dL (6.3-8.3)
[2016-12-07] MEDS: guaiFENesin 600 mg ER Tab PO SCH ×2 (10:54→17:32)
[2016-12-08] MEDS: Enoxaparin 80 mg Syringe SC SCH ×2 (05:50→17:22)
[2016-12-08 06:47] LABS: BASO # 0.1 K/uL (0.0-0.2); BASO % 1.8 % (0.0-2.0); EOS # 0.3 K/uL (0.0-0.7); HEMATOCRIT 25.1 % (35.0-51.0); LYMPH # 1.4 K/uL (1.0-4.3); LYMPH % 25.2 % (20.0-40.0); MEAN CELL VOLUME 92.9 fL (80.0-94.0); MEAN CORPUSCULAR HEMOGLOBIN 30.9 pg (27.0-31.0); MEAN CORPUSCULAR HGB CONC 33.3 g/dL (33.0-37.0); MEAN PLATELET VOLUME 8.9 fL (7.2-11.7); MONO # 0.4 K/uL (0.0-0.8); MONO % 7.9 % (0.0-10.0); RED CELL DISTRIBUTION WIDTH 16.2 % (11.5-14.5); WHITE BLOOD COUNT 5.5 K/uL (4.8-10.8)
[2016-12-08 06:56] LABS: INR 1.6
[2016-12-08] MEDS: Albuterol HFA 90 mcg/actuation (8 g) INH PRN ×2 (07:25→12:59)
[2016-12-08 07:30] LABS: CHLORIDE 106 mmol/L (98-107)
[2016-12-08 07:31] LABS: POTASSIUM 4.1 mmol/L (3.6-5.2); SODIUM 145 mmol/L (132-148)
[2016-12-08 07:33] LABS: AST/SGOT 32 U/L (17-59); BILIRUBIN,TOTAL 0.7 mg/dL (0.2-1.3); BLOOD UREA NITROGEN 12 mg/dL (9-20); CARBON DIOXIDE 26 mmol/L (22-30); GFR AFRICAN-AMERICAN > 60; TOTAL PROTEIN 7.5 g/dL (6.3-8.3)
[2016-12-08 07:34] LABS: ALKALINE PHOSPHATASE 142 U/L (38-126); ALT/SGPT 33 U/L (21-72); CALCIUM 8.8 mg/dl (8.6-10.4); GLUCOSE,RANDOM 83 mg/dL (75-110)
[2016-12-08 07:45] LABS: ALB/GLOB RATIO 0.7 (1.0-2.1)
[2016-12-08] MEDS: guaiFENesin 600 mg ER Tab PO SCH ×2 (09:44→17:22)
--- NOTE | 2016-12-08 10:03 | CP.PCM.PN ---
<Opal Doan - Last Filed: 12/08/16 14:02> Subjective - Date & Time of Evaluation Date of Evaluation: 12/08/16 Time of Evaluation: 10:03 - Subjective Subjective: Patient was seen and evaluated at bedside and states that he feels fine and slept well. He denies any pain or swelling in his legs. He states that he is able to ambulate comfortably around the floor about 10x. He complains of a cough with white sputum production and sternal chest pain that he rates a 5/10 that occurs with coughing. Pt denies f/c/solano/sore throat/palpitations/SOB/n/v/d/c /ap/hematuria/dysuria/LE pain or swelling. Objective - Vital Signs/Intake and Output Vital Signs (last 24 hours): Temp Pulse Resp BP Pulse Ox 98.3 F 88 20 137/86 98 12/08/16 08:12 12/08/16 08:12 12/08/16 08:12 12/08/16 08:12 12/08/16 08:12 Intake and Output: 12/08/16 12/08/16 06:59 18:59 Intake Total 600 Balance 600 - Medications Medications: Current Medications Albuterol (Ventolin Hfa 90 Mcg/Actuation (8 G)) 1 puff INH RQ6 PRN PRN Reason: Shortness of Breath Last Admin: 12/08/16 07:25 Dose: 1 puff Chlordiazepoxide (Librium) 25 mg PO Q12 PRN PRN Reason: tremor Last Admin: 12/07/16 21:28 Dose: 25 mg Enoxaparin Sodium (Lovenox) 80 mg SC Q12H [facility] Last Admin: 12/08/16 05:50 Dose: 80 mg Guaifenesin (Mucinex La) 600 mg PO BID [facility] Last Admin: 12/08/16 09:44 Dose: 600 mg Promethazine HCl/Codeine (Phenergan/Codeine Oral Syrup) 5 ml PO Q4 PRN PRN Reason: Cough and congestion Last Admin: 12/07/16 05:23 Dose: 5 ml - Labs Labs: 12/08/16 06:39 12/08/16 06:39 PT 18.8 SECONDS (9.7-12.2) H 12/08/16 06:39 INR 1.6 12/08/16 06:39 APTT 40 SECONDS (21-34) H 12/08/16 06:39 - Constitutional Appears: Non-toxic, No Acute Distress - Head Exam Head Exam: NORMAL INSPECTION - Eye Exam Eye Exam: EOMI - ENT Exam ENT Exam: Mucous Membranes Moist - Respiratory Exam Respiratory Exam: Clear to Ausculation Bilateral, NORMAL BREATHING PATTERN - Cardiovascular Exam Cardiovascular Exam: REGULAR RHYTHM, +S1, +S2 - GI/Abdominal Exam GI & Abdominal Exam: Soft. absent: Distended, Tenderness - Extremities Exam Extremities Exam: Normal Inspection. absent: Pedal Edema, Tenderness - Neurological Exam Neurological Exam: Alert, Awake - Psychiatric Exam Psychiatric exam: Normal Affect, Normal Mood - Skin Skin Exam: Dry, Intact, Normal Color, Warm Assessment and Plan - Assessment and Plan (Free Text) Assessment: (1) DVT DVT confirmed right LE common femoral and post tibial by US * likely 2/2 recent hospitalization * lovenox 80 qh 12 * Coumadin 7.5 mg PO started 12/01 * F/U INR daily until therapeutic; currently 1.6 (12/08) * Diet - no dark leafy greens * CT angio: negative for PE; Bibasilar atelectasis with groundglass pneumonitis in the right upper lobe and small left pleural effusion; Cirrhosis with splenomegaly; Liver cyst; Gallstones; Small amount of intra-abdominal ascites (2) Hypokalemia * Resolved * K+ (12/08/16): 4.1 * Continue to monitor (3) Anemia * Heme/onc consult (Dr. 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 (4) Alcohol withdrawal * Librium 25 mg PO q12 prn (5) Cough * mucinex 600 mg PO bid * promethazine with codeine 5ml PO Q 4hour PRn * albuterol q 6 prn SOB * Chest CT negative for PE and pneumonia (6) Prophylactic measure * SCDs contraindicated due to acute DVT * Protonix 40mg daily for GI ppx * Therapuetic Lovenox bridge to Coumadin <Von Burkett - Last Filed: 12/08/16 17:57> Objective - Vital Signs/Intake and Output Vital Signs (last 24 hours): Temp Pulse Resp BP Pulse Ox 98.2 F 92 H 20 123/75 98 12/08/16 16:00 12/08/16 16:00 12/08/16 16:00 12/08/16 16:00 12/08/16 16:00 Intake and Output: 12/08/16 12/08/16 06:59 18:59 Intake Total 600 450 Balance 600 450 - Medications Medications: Current Medications Albuterol (Ventolin Hfa 90 Mcg/Actuation (8 G)) 1 puff INH RQ6 PRN PRN Reason: Shortness of Breath Last Admin: 12/08/16 12:59 Dose: 1 puff Chlordiazepoxide (Librium) 25 mg PO Q12 PRN PRN Reason: tremor Last Admin: 12/07/16 21:28 Dose: 25 mg Enoxaparin Sodium (Lovenox) 80 mg SC Q12H [facility] Last Admin: 12/08/16 17:22 Dose: 80 mg Guaifenesin (Mucinex La) 600 mg PO BID [facility] Last Admin: 12/08/16 17:22 Dose: 600 mg Promethazine HCl/Codeine (Phenergan/Codeine Oral Syrup) 5 ml PO Q4 PRN PRN Reason: Cough and congestion Last Admin: 12/07/16 05:23 Dose: 5 ml Warfarin Sodium (Coumadin) 7.5 mg PO 1800 [facility] Stop: 12/08/16 18:01 Last Admin: 12/08/16 17:22 Dose: 7.5 mg - Labs Labs: 12/08/16 06:39 12/08/16 06:39 PT 18.8 SECONDS (9.7-12.2) H 12/08/16 06:39 INR 1.6 12/08/16 06:39 APTT 40 SECONDS (21-34) H 12/08/16 06:39 Attending/Attestation - Attestation I have personally seen and examined this patient.: Yes I have fully participated in the care of the patient.: Yes I have reviewed all pertinent clinical information, including history, physical exam and plan: Yes Notes (Text): 12/08/16 17:56 Hospitalist Progress Note Patient was seen and examined at 1:15 PM Admitted on 11/30/16 with complaints of bilateral leg swelling for 3 days with right leg greater than left leg. He was found to have Right Femoral DVT. Currently upon FULL ROS: NO chest pain, NO palpitations NO SOB/Cough NO abdominal pain NO n/v/d/c NO burning/pain with urination NO lightheadedness/dizziness NO headaches NO other complaints upon FULL ROS Exam: General: AAOx3, NAD HEENT: NCA, EOMI, PERRLA, NO lymphadenopathy, NO thyromegaly, NO pharyngeal erythema/exudate Cardio: NS1 and NS2, NO M/R/G Respiratory: CTA B/L, NO R/R/W GI: BSx4, Soft, Central Obesity therefore Liver and Spleen could not be adequately palpated, NO guarding/rebound tenderness Ext: Bilateral Pulses UE and LE are strong and equal, Capillary Refill is 2 seconds, NO edema Neuro: CN II through XII are grossly intact Assessments: 1). Right Femoral DVT: INR is 1.6 today, coumadin 7.5 mg x 1 dose tonight 2). Hypokalemia: resolved 3). Hx Alcohol Abuse/Alcohol Withdrawl Seizures: librium 25 mg PO Q12H prn tremor 4). Anemia of Chronic Disease/Thrombocytopenia: Hematology Dr. Davis transfuse PRN, stable 5). Hx Psoriasis: currently not an issue 6). Hx Respiratory Failure/Bilateral Pneumonia/Left Pneumothorax: treated here from 10/21/16 through 11/27/16 7). Hx Acute Renal Failure: treated here with HD during admission 10/21/16 through 11/27/16. Bun/Cr and eGFR are WNL 8). Hx Tremor Likely Secondary to Basal Ganglia Dysfunction Secondary to Alcohol Abuse: no tremor noted on exam As long as INR is therapeutic then we will discharge patient after making sure that he has appropriate follow up set up with the [facility]. Von Burkett D.O.
[2016-12-09] MEDS: Enoxaparin 80 mg Syringe SC SCH ×2 (05:19→17:35)
[2016-12-09] MEDS: Albuterol HFA 90 mcg/actuation (8 g) INH PRN ×2 (07:24→13:32)
[2016-12-09 08:12] LABS: BASO # 0.1 K/uL (0.0-0.2); BASO % 1.6 % (0.0-2.0); EOS # 0.3 K/uL (0.0-0.7); EOS % 4.3 % (0.0-4.0); HEMATOCRIT 28.6 % (35.0-51.0); LYMPH # 1.5 K/uL (1.0-4.3); LYMPH % 21.3 % (20.0-40.0); MEAN CELL VOLUME 93.4 fL (80.0-94.0); MEAN CORPUSCULAR HEMOGLOBIN 30.7 pg (27.0-31.0); MEAN CORPUSCULAR HGB CONC 32.9 g/dL (33.0-37.0); MEAN PLATELET VOLUME 8.7 fL (7.2-11.7); MONO # 0.5 K/uL (0.0-0.8); MONO % 6.6 % (0.0-10.0); RED CELL DISTRIBUTION WIDTH 17.2 % (11.5-14.5); WHITE BLOOD COUNT 7.2 K/uL (4.8-10.8)
[2016-12-09 08:20] LABS: INR 1.6
[2016-12-09 08:30] LABS: CHLORIDE 106 mmol/L (98-107); POTASSIUM 4.3 mmol/L (3.6-5.2); SODIUM 142 mmol/L (132-148)
[2016-12-09 08:33] LABS: CARBON DIOXIDE 25 mmol/L (22-30); GFR AFRICAN-AMERICAN > 60
[2016-12-09 08:34] LABS: BLOOD UREA NITROGEN 9 mg/dL (9-20); CALCIUM 9.2 mg/dl (8.6-10.4); GLUCOSE,RANDOM 93 mg/dL (75-110)
[2016-12-09] MEDS: guaiFENesin 600 mg ER Tab PO SCH ×2 (09:34→17:35)
--- NOTE | 2016-12-09 13:06 | CP.PCM.PN ---
<Opal Doan - Last Filed: 12/09/16 17:10> Subjective - Date & Time of Evaluation Date of Evaluation: 12/09/16 Time of Evaluation: 13:04 - Subjective Subjective: Patient was seen and evaluated at bedside and states that he feels fine and slept well. He states that there is no pain or swelling in his legs and that he continues to be able to ambulate comfortably around the floor about 10x. He still complains of a cough with white sputum production. Pt denies f/c/[place]/sore throat/cp/SOB/palpitations/AP/n/v/d/c/hematuria/dysuria/LE pain or swelling. Objective - Vital Signs/Intake and Output Vital Signs (last 24 hours): Temp Pulse Resp BP Pulse Ox 99.5 F 87 20 149/91 H 97 12/09/16 07:13 12/09/16 07:13 12/09/16 07:13 12/09/16 07:13 12/09/16 07:13 Intake and Output: 12/09/16 12/09/16 06:59 18:59 Intake Total 240 Balance 240 - Medications Medications: Current Medications Albuterol (Ventolin Hfa 90 Mcg/Actuation (8 G)) 1 puff INH RQ6 PRN PRN Reason: Shortness of Breath Last Admin: 12/09/16 07:24 Dose: 1 puff Chlordiazepoxide (Librium) 25 mg PO Q12 PRN PRN Reason: tremor Last Admin: 12/08/16 22:21 Dose: 25 mg Enoxaparin Sodium (Lovenox) 80 mg SC Q12H [facility] Last Admin: 12/09/16 05:19 Dose: 80 mg Guaifenesin (Mucinex La) 600 mg PO BID [facility] Last Admin: 12/09/16 09:34 Dose: 600 mg Promethazine HCl/Codeine (Phenergan/Codeine Oral Syrup) 5 ml PO Q4 PRN PRN Reason: Cough and congestion Last Admin: 12/07/16 05:23 Dose: 5 ml Warfarin Sodium (Coumadin) 10 mg PO 1800 [facility] Stop: 12/09/16 18:01 - Labs Labs: 12/09/16 08:04 12/09/16 08:04 PT 19.1 SECONDS (9.7-12.2) H 12/09/16 08:04 INR 1.6 12/09/16 08:04 APTT 49 SECONDS (21-34) H D 12/09/16 08:04 - Constitutional Appears: Non-toxic, No Acute Distress - Head Exam Head Exam: NORMAL INSPECTION - Eye Exam Eye Exam: EOMI - ENT Exam ENT Exam: Mucous Membranes Moist - Respiratory Exam Respiratory Exam: Clear to Ausculation Bilateral, NORMAL BREATHING PATTERN - Cardiovascular Exam Cardiovascular Exam: REGULAR RHYTHM, +S1, +S2 - GI/Abdominal Exam GI & Abdominal Exam: Soft, Normal Bowel Sounds. absent: Distended, Tenderness - Extremities Exam Extremities Exam: Normal Inspection. absent: Calf Tenderness, Pedal Edema - Neurological Exam Neurological Exam: Alert, Awake - Psychiatric Exam Psychiatric exam: Normal Affect, Normal Mood - Skin Skin Exam: Dry, Intact, Warm Assessment and Plan - Assessment and Plan (Free Text) Assessment: (1) DVT DVT confirmed right LE common femoral and post tibial by US * likely 2/2 recent hospitalization * lovenox 80 qh 12 * Coumadin 10 mg PO 12/09 * F/U INR daily until therapeutic; currently 1.6 (12/09) * Diet - no dark leafy greens * CT angio: negative for PE; Bibasilar atelectasis with groundglass pneumonitis in the right upper lobe and small left pleural effusion; Cirrhosis with splenomegaly; Liver cyst; Gallstones; Small amount of intra-abdominal ascites (2) Hypokalemia * Resolved * K+ (12/09/16): 4.3 * Continue to monitor (3) Anemia * Heme/onc consult (Dr. 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 Patient will need f/u INR in clinic 1 wk after discharge. <Von Burkett - Last Filed: 12/09/16 17:42> Objective - Vital Signs/Intake and Output Vital Signs (last 24 hours): Temp Pulse Resp BP Pulse Ox 98.1 F 82 20 133/79 97 12/09/16 15:00 12/09/16 15:00 12/09/16 15:00 12/09/16 15:00 12/09/16 15:00 Intake and Output: 12/09/16 12/09/16 06:59 18:59 Intake Total 740 Balance 740 - Medications Medications: Current Medications Albuterol (Ventolin Hfa 90 Mcg/Actuation (8 G)) 1 puff INH RQ6 PRN PRN Reason: Shortness of Breath Last Admin: 12/09/16 13:32 Dose: 1 puff Chlordiazepoxide (Librium) 25 mg PO Q12 PRN PRN Reason: tremor Last Admin: 12/08/16 22:21 Dose: 25 mg Enoxaparin Sodium (Lovenox) 80 mg SC Q12H [facility] Last Admin: 12/09/16 17:35 Dose: 80 mg Guaifenesin (Mucinex La) 600 mg PO BID [facility] Last Admin: 12/09/16 17:35 Dose: 600 mg Promethazine HCl/Codeine (Phenergan/Codeine Oral Syrup) 5 ml PO Q4 PRN PRN Reason: Cough and congestion Last Admin: 12/07/16 05:23 Dose: 5 ml Warfarin Sodium (Coumadin) 10 mg PO 1800 [facility] Stop: 12/09/16 18:01 Last Admin: 12/09/16 17:35 Dose: 10 mg - Labs Labs: 12/09/16 08:04 12/09/16 08:04 PT 19.1 SECONDS (9.7-12.2) H 12/09/16 08:04 INR 1.6 12/09/16 08:04 APTT 49 SECONDS (21-34) H D 12/09/16 08:04 Attending/Attestation - Attestation I have personally seen and examined this patient.: Yes I have fully participated in the care of the patient.: Yes I have reviewed all pertinent clinical information, including history, physical exam and plan: Yes Notes (Text): 12/09/16 17:39 Hospitalist Progress Note Patient was seen and examined at 8:45 AM Admitted on 11/30/16 with complaints of bilateral leg swelling for 3 days with right leg greater than left leg. He was found to have Right Femoral DVT. Currently upon FULL ROS: NO chest pain, NO palpitations NO SOB/Cough NO abdominal pain NO n/v/d/c NO burning/pain with urination NO lightheadedness/dizziness NO headaches NO other complaints upon FULL ROS Exam: General: AAOx3, NAD HEENT: NCA, EOMI, PERRLA, NO lymphadenopathy, NO thyromegaly, NO pharyngeal erythema/exudate Cardio: NS1 and NS2, NO M/R/G Respiratory: CTA B/L, NO R/R/W GI: BSx4, Soft, Central Obesity therefore Liver and Spleen could not be adequately palpated, NO guarding/rebound tenderness Ext: Bilateral Pulses UE and LE are strong and equal, Capillary Refill is 2 seconds, NO edema Neuro: CN II through XII are grossly intact Assessments: 1). Right Femoral DVT: INR is 1.6 today, coumadin 10 mg x 1 dose tonight 2). Hypokalemia: resolved 3). Hx Alcohol Abuse/Alcohol Withdrawl Seizures: librium 25 mg PO Q12H prn tremor 4). Anemia of Chronic Disease/Thrombocytopenia: Hematology Dr. Davis transfuse PRN, stable 5). Hx Psoriasis: currently not an issue 6). Hx Respiratory Failure/Bilateral Pneumonia/Left Pneumothorax: treated here from 10/21/16 through 11/27/16 7). Hx Acute Renal Failure: treated here with HD during admission 10/21/16 through 11/27/16. Bun/Cr and eGFR are WNL 8). Hx Tremor Likely Secondary to Basal Ganglia Dysfunction Secondary to Alcohol Abuse: no tremor noted on exam As long as INR is therapeutic then we will discharge patient after making sure that he has appropriate follow up set up with the [facility]. Von Burkett D.O.
[2016-12-10] MEDS: Enoxaparin 80 mg Syringe SC SCH ×2 (04:08→17:26)
[2016-12-10] MEDS: Albuterol HFA 90 mcg/actuation (8 g) INH PRN ×2 (07:32→13:08)
[2016-12-10 07:33] LABS: BASO # 0.1 K/uL (0.0-0.2); BASO % 1.4 % (0.0-2.0); EOS # 0.3 K/uL (0.0-0.7); EOS % 5.4 % (0.0-4.0); HEMATOCRIT 25.7 % (35.0-51.0); LYMPH # 1.3 K/uL (1.0-4.3); LYMPH % 25.7 % (20.0-40.0); MEAN CELL VOLUME 93.6 fL (80.0-94.0); MEAN CORPUSCULAR HEMOGLOBIN 30.7 pg (27.0-31.0); MEAN CORPUSCULAR HGB CONC 32.8 g/dL (33.0-37.0); MONO # 0.4 K/uL (0.0-0.8); MONO % 7.7 % (0.0-10.0); RED CELL DISTRIBUTION WIDTH 16.9 % (11.5-14.5); WHITE BLOOD COUNT 5.2 K/uL (4.8-10.8)
[2016-12-10 07:34] LABS: INR 1.8
--- NOTE | 2016-12-10 08:30 | CP.PCM.PN ---
Subjective - Date & Time of Evaluation Date of Evaluation: 12/10/16 Time of Evaluation: 08:10 - Subjective Subjective: Hospitalist Progress Note Patient was seen and examined at 8:10 AM 12/10/16 Admitted on 11/30/16 with complaints of bilateral leg swelling for 3 days with right leg greater than left leg. He was found to have Right Femoral DVT. He was started on therapeutic Lovenox and Coumadin. He was provided with dietary counseling concerning Coumadin diet and I also went over the dietary hand out with with. Also explained the risks for bleeding with Coumadin and he expressed understanding. Currently upon FULL ROS: NO chest pain, NO palpitations NO SOB/Cough NO abdominal pain NO n/v/d/c NO burning/pain with urination NO lightheadedness/dizziness NO headaches NO other complaints upon FULL ROS Exam: General: AAOx3, NAD HEENT: NCA, EOMI, PERRLA, NO lymphadenopathy, NO thyromegaly, NO pharyngeal erythema/exudate Cardio: NS1 and NS2, NO M/R/G Respiratory: CTA B/L, NO R/R/W GI: BSx4, Soft, NO guarding/rebound tenderness Ext: Bilateral Pulses UE and LE are strong and equal, Capillary Refill is 2 seconds, NO edema Neuro: CN II through XII are grossly intact Assessments: 1). Right Femoral DVT: INR is 1.8 today. This is close enough to goal of 2 therefore patient will be discharged today. 2). Hypokalemia: resolved 3). Hx Alcohol Abuse/Alcohol Withdrawl Seizures: librium 25 mg PO Q12H prn tremor and he has not required use 4). Anemia of Chronic Disease/Thrombocytopenia: Hematology Dr. Davis transfuse PRN, stable 5). Hx Psoriasis: currently not an issue 6). Hx Respiratory Failure/Bilateral Pneumonia/Left Pneumothorax: treated here from 10/21/16 through 11/27/16 7). Hx Acute Renal Failure: treated here with HD during admission 10/21/16 through 11/27/16. Bun/Cr and eGFR are WNL 8). Hx Tremor Likely Secondary to Basal Ganglia Dysfunction Secondary to Alcohol Abuse: no tremor noted on exam The following instructions were explained to patient and copy of these instructions were provided to patient: 1). You do not have a primary care physician and it is important for you to do so to help coordinate your care, monitor the blood level of Coumadin, and to provide you with additional prescription refills. An appointment has been made for you at the [facility] located on Floor B of [address] in [facility]. 2). Present to [facility] on 12/15/16 at 8:30 AM in the main lobby and the security infrastructure engineer will direct you where to go. 3). You were provided with the following prescription. Please have it filled at your pharmacy and start taking on 12/11/16 at 6 PM: Warfarin 7.5 mg, 1 tablet by mouth once daily at 6 PM, Dispense #[id number], NO refills 4). As discussed you must refrain from Alcohol. Please follow up with Alcoholics Anonymous at either of the following locations: [facility] located at [address] [place] [address] at 9 AM on Wednesday12/11/16 [facility] located at [address] [place] [address] at 8 PM on Wednesday12/12/16. 5). Please follow the dietary instructions that were provided and explained to you. 6). Please take care and be well. Von Burkett D.O. Objective - Vital Signs/Intake and Output Vital Signs (last 24 hours): Temp Pulse Resp BP Pulse Ox 98 F 83 20 123/74 97 12/10/16 00:00 12/10/16 00:00 12/10/16 00:00 12/10/16 00:00 12/10/16 00:00 Intake and Output: 12/10/16 12/10/16 06:59 18:59 Intake Total 480 Balance 480 - Medications Medications: Current Medications Albuterol (Ventolin Hfa 90 Mcg/Actuation (8 G)) 1 puff INH RQ6 PRN PRN Reason: Shortness of Breath Last Admin: 12/10/16 07:32 Dose: 1 puff Chlordiazepoxide (Librium) 25 mg PO Q12 PRN PRN Reason: tremor Last Admin: 12/09/16 21:21 Dose: 25 mg Enoxaparin Sodium (Lovenox) 80 mg SC Q12H [facility] Last Admin: 12/10/16 04:08 Dose: 80 mg Guaifenesin (Mucinex La) 600 mg PO BID [facility] Last Admin: 12/09/16 17:35 Dose: 600 mg Promethazine HCl/Codeine (Phenergan/Codeine Oral Syrup) 5 ml PO Q4 PRN PRN Reason: Cough and congestion Last Admin: 12/07/16 05:23 Dose: 5 ml - Labs Labs: 12/10/16 07:08 12/09/16 08:04 PT 20.8 SECONDS (9.7-12.2) H 12/10/16 07:08 INR 1.8 12/10/16 07:08 APTT 48 SECONDS (21-34) H 12/10/16 07:08
[2016-12-10] MEDS: guaiFENesin 600 mg ER Tab PO SCH ×2 (10:09→17:26)
--- NOTE | 2016-12-10 14:36 | CP.PCM.DIS ---
<Opal Doan - Last Filed: 12/10/16 14:53> Provider - Provider Date of Admission: 12/01/16 11:10 Attending physician: Chelsey Cisneros DO Consults: Dr. Davis Time Spent in preparation of Discharge (in minutes): 40 Diagnosis - Discharge Diagnosis (1) Anemia Status: Acute Comment: Please see summary for more details. (2) Cough Status: Acute Comment: Please see summary for more details. (3) DVT (deep venous thrombosis) Status: Acute Comment: Please see summary for more details. (4) Alcohol withdrawal Status: Acute Priority: High Comment: Please see summary for more details. Hospital Course - Lab Results Lab Results: Most Recent Lab Values WBC 5.2 K/uL (4.8-10.8) 12/10/16 07:08 RBC 2.74 Mil/uL (4.40-5.90) L 12/10/16 07:08 Hgb 8.4 g/dL (12.0-18.0) L 12/10/16 07:08 Hct 25.7 % (35.0-51.0) L 12/10/16 07:08 MCV 93.6 fL (80.0-94.0) 12/10/16 07:08 MCH 30.7 pg (27.0-31.0) 12/10/16 07:08 MCHC 32.8 g/dL (33.0-37.0) L 12/10/16 07:08 RDW 16.9 % (11.5-14.5) H 12/10/16 07:08 Plt Count 151 K/uL (130-400) 12/10/16 07:08 MPV 9.0 fL (7.2-11.7) 12/10/16 07:08 Neut % (Auto) 59.8 % (50.0-75.0) 12/10/16 07:08 Lymph % (Auto) 25.7 % (20.0-40.0) 12/10/16 07:08 Blair % (Auto) 7.7 % (0.0-10.0) 12/10/16 07:08 Eos % (Auto) 5.4 % (0.0-4.0) H 12/10/16 07:08 Baso % (Auto) 1.4 % (0.0-2.0) 12/10/16 07:08 Neut # 3.1 K/uL (1.8-7.0) 12/10/16 07:08 Lymph # 1.3 K/uL (1.0-4.3) 12/10/16 07:08 Blair # 0.4 K/uL (0.0-0.8) 12/10/16 07:08 Eos # 0.3 K/uL (0.0-0.7) 12/10/16 07:08 Baso # 0.1 K/uL (0.0-0.2) 12/10/16 07:08 PT 20.8 SECONDS (9.7-12.2) H 12/10/16 07:08 INR 1.8 12/10/16 07:08 APTT 48 SECONDS (21-34) H 12/10/16 07:08 D-Dimer, Quantitative 2710 ng/mlDDU (0-243) H 11/30/16 14:49 Factor V see note 12/02/16 06:30 Sodium 142 mmol/L (132-148) 12/09/16 08:04 Potassium 4.3 mmol/L (3.6-5.2) 12/09/16 08:04 Chloride 106 mmol/L (98-107) 12/09/16 08:04 Carbon Dioxide 25 mmol/L (22-30) 12/09/16 08:04 Anion Gap 15 (10-20) 12/09/16 08:04 BUN 9 mg/dL (9-20) 12/09/16 08:04 Creatinine 0.8 MG/DL (0.8-1.5) 12/09/16 08:04 Est GFR ( Amer) > 60 12/09/16 08:04 Est GFR (Non-Af Amer) > 60 12/09/16 08:04 Random Glucose 93 mg/dL (75-110) 12/09/16 08:04 Calcium 9.2 mg/dl (8.6-10.4) 12/09/16 08:04 Phosphorus 5.0 mg/dL (2.5-4.5) H 12/06/16 08:05 Magnesium 1.6 mg/dL (1.6-2.3) 12/07/16 08:18 Total Bilirubin 0.7 mg/dL (0.2-1.3) 12/08/16 06:39 AST 32 U/L (17-59) 12/08/16 06:39 ALT 33 U/L (21-72) 12/08/16 06:39 Alkaline Phosphatase 142 U/L (38-126) H 12/08/16 06:39 Troponin I < 0.0120 ng/mL (0.00-0.120) 11/30/16 14:49 NT-Pro-B Natriuret Pep 524 pg/mL (0-450) H 11/30/16 14:49 Total Protein 7.5 g/dL (6.3-8.3) 12/08/16 06:39 Albumin 3.2 g/dL (3.5-5.0) L 12/08/16 06:39 Globulin 4.3 gm/dL (2.2-3.9) H 12/08/16 06:39 Albumin/Globulin Ratio 0.7 (1.0-2.1) L 12/08/16 06:39 Urine Color Yellow (YELLOW) 11/30/16 16:14 Urine Clarity Clear (Clear) 11/30/16 16:14 Urine pH 5.0 (5.0-8.0) 11/30/16 16:14 Ur Specific [place] 1.008 (1.003-1.030) 11/30/16 16:14 Urine Protein Negative mg/dL (NEGATIVE) 11/30/16 16:14 Urine Glucose (UA) Normal mg/dL (Normal) 11/30/16 16:14 Urine Ketones Negative mg/dL (NEGATIVE) 11/30/16 16:14 Urine Blood Negative (NEGATIVE) 11/30/16 16:14 Urine Nitrate Negative (NEGATIVE) 11/30/16 16:14 Urine Bilirubin Negative (NEGATIVE) 11/30/16 16:14 Urine Urobilinogen Normal mg/dL (0.2-1.0) 11/30/16 16:14 Ur Leukocyte Esterase Neg Sangeetha/uL (Negative) 11/30/16 16:14 Urine WBC (Auto) 4 /hpf (0-5) 11/30/16 16:14 Urine RBC (Auto) 1 /hpf (0-3) 11/30/16 16:14 Ur Squamous Epith Cells < 1 /hpf (0-5) 11/30/16 16:14 Urine Bacteria Rare (<OCC) 11/30/16 16:14 Urine Opiates Screen Negative (NEGATIVE) 11/30/16 16:14 Urine Methadone Screen Negative (NEGATIVE) 11/30/16 16:14 Ur Barbiturates Screen Negative (NEGATIVE) 11/30/16 16:14 Ur Phencyclidine Scrn Negative (NEGATIVE) 11/30/16 16:14 Ur Amphetamines Screen Negative (NEGATIVE) 11/30/16 16:14 U Benzodiazepines Scrn Negative (NEGATIVE) 11/30/16 16:14 U Oth Cocaine Metabols Negative (NEGATIVE) 11/30/16 16:14 U Cannabinoids Screen Negative (NEGATIVE) 11/30/16 16:14 Alcohol, Quantitative < 10 mg/dl (0-10) 11/30/16 14:49 Enof-8-Tomujoxqvodj Ab <9 PABLO (<=20) 12/01/16 06:30 Beta-2 GPI IgG Ab <9 SGU (<=20) 12/01/16 06:30 Beta-2 GPI IgM Ab <9 SMU (<=20) 12/01/16 06:30 Phosphatidylserine IgG <10 U/mL (<10) 12/01/16 06:30 Phosphatidylserine IgA <20 U/mL (<20) 12/01/16 06:30 Phosphatidylserine IgM <25 U/mL (<25) 12/01/16 06:30 Anti-Phospholipid Intrp see note 12/01/16 06:30 Anti-Cardiolipin IgG Ab <14 GPL (<=14) 12/01/16 06:30 Anti-Cardiolipin IgA Ab <11 APL (<=11) 12/01/16 06:30 Anti-Cardiolipin IgM Ab <12 MPL (<=12) 12/01/16 06:30 Prothrombin Mut Interp see note 12/02/16 08:02 Prothrombin Gene Mutate see note 12/02/16 08:02 Prothromb Gene Review see note 12/02/16 08:02 Blood Type B POSITIVE 11/30/16 20:20 Antibody Screen Negative 11/30/16 20:20 - Hospital Course Hospital Course: Upon admission: This is a 46 yo male with past medical hx of alcoholism, pneumonia, sepsis, respiratory failure, requiring intubation, renal failure requiring temp HD presenting to ER with chief complaint of leg swelling. Patient was recently discharged from [facility] [place]. Patient has been experiencing leg swelling B/L for 3 days, right greater than left. There is also some associated right lower ext pain. It has been staying the same, not getting better or worse. He has not taken any meds to make it better. He denies past DVT/PE. Recent hospitalization as noted above. No trauma or recent surgery. Denies fevers, chills, chest pain, shortness of breath, bleeding. Hospital course: Patient was admitted for acute DVT. He received an EKG on 11/30/16 which reported a normal sinus rhythm as well as a CXR which showed poor inspiration with low lung volumes, crowded bronchovascular markings and mild bibasilar residual atelectasis, infiltrates on the left greater than the right, less congested central pulmonary vasculature, and small residual effusions on the left larger than the right. Patient also underwent a lower extremity duplex scan on 11/30/16 which showed acute thrombosis of the right common femoral and posterior tibial veins with mild reduction of the venous return but no evidence of deep or superficial vein thrombosis of the left lower extremity with normal valve function. He also received a chest CT that day which reported no PE, bibasilar atelectasis with ground-glass pneumonitis in the right upper lobe and small left pleural effusion, cirrhosis with splenomegaly, liver cyst, gallstones , and a small amount of intra-abdominal ascites. Heme/onc (Dr. Davis) was consulted on 12/01/16 and recommended therapeutic anticoagulation for the DVT and coagulopathy as well as transfusion support as needed for the anemia of chronic disease. In addition, work-up for inherited thrombophilia was suggested. Patient was started on Coumadin 5 mg on 12/01, then increased to 7.5 mg on 12/03, and increased to 10 mg on 12/09. Patient's INR was found to be 1.8 on 12/10. Patient was found to be tremulous on 12/03 secondary to alcohol withdrawal. Patient was prescribed Librium 25 mg q12 PRN for tremor. Patient complained of cough during hospitalization and was prescribed mucinex 600 mg PO bid, promethazine with codeine 5ml PO Q 4hour PRn, and albuterol q 6 prn SOB. Patient was seen and evaluated at bedside today. Patient denies F/C, DE [place] CRUZ, CP, SOB , N/V/D/C, abdominal pain, dysuria, and LE pain and swelling. Patient is able to ambulate comfortably. The following instructions were explained to patient and copy of these instructions were provided to patient: 1). You do not have a primary care physician and it is important for you to do so to help coordinate your care, monitor the blood level of Coumadin, and to provide you with additional prescription refills. An appointment has been made for you at the [facility] located on Floor B of [address] in [facility]. This appointment is on: 2). On the day of your appointment, arrive at least 30 minutes before your appointment time in the main lobby of [facility] [place] and the senior cyber security analyst will direct you where to go. 3). You were provided with the following prescription. Please have it filled at your pharmacy and start taking on 12/11/16 at 6 PM: Warfarin 7.5 mg, 1 tablet by mouth once daily at 6 PM, Dispense #30, NO refills 4). As discussed you must refrain from Alcohol. Please follow up with Alcoholics Anonymous at either of the following locations: [facility] located at [address] [place] [address] at 9 AM on Wednesday12/11/16 [facility] located at [address] [facility] at 8 PM on Wednesday12/12/16. 5). Please follow the dietary instructions that were provided and explained to you. 6). Please take care and be well. Patient is stable for discharge per Dr. Burkett. Please note this is a summary of events. For more details, please see complete medical record. - Date & Time of H&P Date of H&P: 11/30/16 Time of H&P: 17:21 Discharge Exam - Head Exam Head Exam: NORMAL INSPECTION - Eye Exam Eye Exam: EOMI - ENT Exam ENT Exam: Mucous Membranes Moist - Respiratory Exam Respiratory Exam: Clear to PA & Lateral, NORMAL BREATHING PATTERN, UNREMARKABLE - Cardiovascular Exam Cardiovascular Exam: REGULAR RHYTHM, RRR, +S1, +S2. absent: Gallop, Rubs, Systolic Murmur - GI/Abdominal Exam GI & Abdominal Exam: Normal Bowel Sounds, Soft, Unremarkable. absent: Distended , Tenderness - Extremities Exam Extremities exam: normal capillary refill, normal inspection, pedal pulses present - Neurological Exam Neurological exam: Alert, Oriented x3 - Psychiatric Exam Psychiatric exam: Normal Affect, Normal Mood - Skin Skin Exam: Dry, Intact, Warm Discharge Plan - Discharge Medications Prescriptions: Warfarin [Coumadin] 7.5 mg PO DAILY #30 tab - Follow Up Plan Condition: GOOD Disposition: HOME/ ROUTINE Instructions: Warfarin (By mouth), Deep Venous Thrombosis (DC) Additional Instructions: The following instructions were explained to patient and copy of these instructions were provided to patient: 1). You do not have a primary care physician and it is important for you to do so to help coordinate your care, monitor the blood level of Coumadin, and to provide you with additional prescription refills. An appointment has been made for you at the [facility] located on Floor [address] of [address] in [facility]. 2). On Wednesday12/15/16 8:30 AM, arrive at main lobby minutes of [facility] [place] and the senior cyber security analyst will direct you where to go to get to the clinic 3). You were provided with the following prescription. Please have it filled at your pharmacy and start taking on 12/11/16 at 6 PM: Warfarin 7.5 mg, 1 tablet by mouth once daily at 6 PM, Dispense #30, NO refills 4). As discussed you must refrain from Alcohol. Please follow up with Alcoholics Anonymous at either of the following locations: [facility] located at [address] [place] [address] at 9 AM on Wednesday12/11/16 [facility] located at [address] [place] [address] at 8 PM on Wednesday12/12/16. 5). Please follow the dietary instructions that were provided and explained to you. 6). Please take care and be well. Referrals: Alcoholics Anonymous [Outside] [facility] at [facility] [Outside] Concetta Calderon MD [Staff Provider] - <Von Burkett - Last Filed: 12/10/16 17:58> Provider - Provider Date of Admission: 12/01/16 11:10 Attending physician: Chelsey Cisneros DO Hospital Course - Lab Results Lab Results: Most Recent Lab Values WBC 5.2 K/uL (4.8-10.8) 12/10/16 07:08 RBC 2.74 Mil/uL (4.40-5.90) L 12/10/16 07:08 Hgb 8.4 g/dL (12.0-18.0) L 12/10/16 07:08 Hct 25.7 % (35.0-51.0) L 12/10/16 07:08 MCV 93.6 fL (80.0-94.0) 12/10/16 07:08 MCH 30.7 pg (27.0-31.0) 12/10/16 07:08 MCHC 32.8 g/dL (33.0-37.0) L 12/10/16 07:08 RDW 16.9 % (11.5-14.5) H 12/10/16 07:08 Plt Count 151 K/uL (130-400) 12/10/16 07:08 MPV 9.0 fL (7.2-11.7) 12/10/16 07:08 Neut % (Auto) 59.8 % (50.0-75.0) 12/10/16 07:08 Lymph % (Auto) 25.7 % (20.0-40.0) 12/10/16 07:08 Blair % (Auto) 7.7 % (0.0-10.0) 12/10/16 07:08 Eos % (Auto) 5.4 % (0.0-4.0) H 12/10/16 07:08 Baso % (Auto) 1.4 % (0.0-2.0) 12/10/16 07:08 Neut # 3.1 K/uL (1.8-7.0) 12/10/16 07:08 Lymph # 1.3 K/uL (1.0-4.3) 12/10/16 07:08 Blair # 0.4 K/uL (0.0-0.8) 12/10/16 07:08 Eos # 0.3 K/uL (0.0-0.7) 12/10/16 07:08 Baso # 0.1 K/uL (0.0-0.2) 12/10/16 07:08 PT 20.8 SECONDS (9.7-12.2) H 12/10/16 07:08 INR 1.8 12/10/16 07:08 APTT 48 SECONDS (21-34) H 12/10/16 07:08 D-Dimer, Quantitative 2710 ng/mlDDU (0-243) H 11/30/16 14:49 Factor V see note 12/02/16 06:30 Sodium 142 mmol/L (132-148) 12/09/16 08:04 Potassium 4.3 mmol/L (3.6-5.2) 12/09/16 08:04 Chloride 106 mmol/L (98-107) 12/09/16 08:04 Carbon Dioxide 25 mmol/L (22-30) 12/09/16 08:04 Anion Gap 15 (10-20) 12/09/16 08:04 BUN 9 mg/dL (9-20) 12/09/16 08:04 Creatinine 0.8 MG/DL (0.8-1.5) 12/09/16 08:04 Est GFR ( Amer) > 60 12/09/16 08:04 Est GFR (Non-Af Amer) > 60 12/09/16 08:04 Random Glucose 93 mg/dL (75-110) 12/09/16 08:04 Calcium 9.2 mg/dl (8.6-10.4) 12/09/16 08:04 Phosphorus 5.0 mg/dL (2.5-4.5) H 12/06/16 08:05 Magnesium 1.6 mg/dL (1.6-2.3) 12/07/16 08:18 Total Bilirubin 0.7 mg/dL (0.2-1.3) 12/08/16 06:39 AST 32 U/L (17-59) 12/08/16 06:39 ALT 33 U/L (21-72) 12/08/16 06:39 Alkaline Phosphatase 142 U/L (38-126) H 12/08/16 06:39 Troponin I < 0.0120 ng/mL (0.00-0.120) 11/30/16 14:49 NT-Pro-B Natriuret Pep 524 pg/mL (0-450) H 11/30/16 14:49 Total Protein 7.5 g/dL (6.3-8.3) 12/08/16 06:39 Albumin 3.2 g/dL (3.5-5.0) L 12/08/16 06:39 Globulin 4.3 gm/dL (2.2-3.9) H 12/08/16 06:39 Albumin/Globulin Ratio 0.7 (1.0-2.1) L 12/08/16 06:39 Urine Color Yellow (YELLOW) 11/30/16 16:14 Urine Clarity Clear (Clear) 11/30/16 16:14 Urine pH 5.0 (5.0-8.0) 11/30/16 16:14 Ur Specific [place] 1.008 (1.003-1.030) 11/30/16 16:14 Urine Protein Negative mg/dL (NEGATIVE) 11/30/16 16:14 Urine Glucose (UA) Normal mg/dL (Normal) 11/30/16 16:14 Urine Ketones Negative mg/dL (NEGATIVE) 11/30/16 16:14 Urine Blood Negative (NEGATIVE) 11/30/16 16:14 Urine Nitrate Negative (NEGATIVE) 11/30/16 16:14 Urine Bilirubin Negative (NEGATIVE) 11/30/16 16:14 Urine Urobilinogen Normal mg/dL (0.2-1.0) 11/30/16 16:14 Ur Leukocyte Esterase Neg Sangeetha/uL (Negative) 11/30/16 16:14 Urine WBC (Auto) 4 /hpf (0-5) 11/30/16 16:14 Urine RBC (Auto) 1 /hpf (0-3) 11/30/16 16:14 Ur Squamous Epith Cells < 1 /hpf (0-5) 11/30/16 16:14 Urine Bacteria Rare (<OCC) 11/30/16 16:14 Urine Opiates Screen Negative (NEGATIVE) 11/30/16 16:14 Urine Methadone Screen Negative (NEGATIVE) 11/30/16 16:14 Ur Barbiturates Screen Negative (NEGATIVE) 11/30/16 16:14 Ur Phencyclidine Scrn Negative (NEGATIVE) 11/30/16 16:14 Ur Amphetamines Screen Negative (NEGATIVE) 11/30/16 16:14 U Benzodiazepines Scrn Negative (NEGATIVE) 11/30/16 16:14 U Oth Cocaine Metabols Negative (NEGATIVE) 11/30/16 16:14 U Cannabinoids Screen Negative (NEGATIVE) 11/30/16 16:14 Alcohol, Quantitative < 10 mg/dl (0-10) 11/30/16 14:49 Cwfq-3-Dohqnxzlefma Ab <9 PABLO (<=20) 12/01/16 06:30 Beta-2 GPI IgG Ab <9 SGU (<=20) 12/01/16 06:30 Beta-2 GPI IgM Ab <9 SMU (<=20) 12/01/16 06:30 Phosphatidylserine IgG <10 U/mL (<10) 12/01/16 06:30 Phosphatidylserine IgA <20 U/mL (<20) 12/01/16 06:30 Phosphatidylserine IgM <25 U/mL (<25) 12/01/16 06:30 Anti-Phospholipid Intrp see note 12/01/16 06:30 Anti-Cardiolipin IgG Ab <14 GPL (<=14) 12/01/16 06:30 Anti-Cardiolipin IgA Ab <11 APL (<=11) 12/01/16 06:30 Anti-Cardiolipin IgM Ab <12 MPL (<=12) 12/01/16 06:30 Prothrombin Mut Interp see note 12/02/16 08:02 Prothrombin Gene Mutate see note 12/02/16 08:02 Prothromb Gene Review see note 12/02/16 08:02 Blood Type B POSITIVE 11/30/16 20:20 Antibody Screen Negative 11/30/16 20:20 Attending/Attestation - Attestation I have personally seen and examined this patient.: Yes I have fully participated in the care of the patient.: Yes I have reviewed all pertinent clinical information, including history, physical exam and plan: Yes
[2016-12-10 16:26] VITALS: BP 130/87; PULSE 81; TEMP 98.5; O2SAT 100
== END 2016-12-10 18:59 | disposition home or self-care (01) | DRG 543 ==
LOC: C.ER 13:38 → C.9E 16:37 → C.3T 18:47 → OBSVTOIN 12-01 11:10
PROVIDERS: ADMIT Hospitalist; ATTEND Hospitalist
DX: I82.411 Acute embolism and thrombosis of right femoral vein (principal); J18.9 Pneumonia, unspecified organism; D68.9 Coagulation defect, unspecified; R18.8 Other ascites; K74.60 Unspecified cirrhosis of liver; R16.1 Splenomegaly, not elsewhere classified; E87.6 Hypokalemia; F10.239 Alcohol dependence with withdrawal, unspecified; J98.11 Atelectasis; I10 Essential (primary) hypertension; D63.8 Anemia in other chronic diseases classified elsewhere; I82.441 Acute embolism and thrombosis of right tibial vein; K80.20 Calculus of gallbladder without cholecystitis without obstruction; Z59.0 Homelessness; Z79.01 Long term (current) use of anticoagulants; Z87.891 Personal history of nicotine dependence

== ENCOUNTER 2016-12-18 08:56 | Inpatient (IN) | payer SELFPAY ==
--- NOTE | 2016-12-18 09:28 | C.PDOC ---
History Of Present Illness 46 y/o male with hx etoh abuse (last drink 3 weeks ago) with 2 recent prolonged hospitalizations at [facility] (disc 12/10/16) for pna, resp failure, dvt, etoh wd, c/ o 4 days of worsening bilateral leg swelling, right more than left, with sharp, constant, non radiating sternal chest pain x 2 days, not worse with exertion, without associated n/v, diaphoresis, sob. pt denies fever, chills, cough. pt reports compliance with coumadin. Time Seen by Provider: 12/18/16 09:11 Chief Complaint (Nursing): Lower Extremity Problem/Injury Past Medical History Vital Signs: Last Vital Signs Temp 97.9 F 12/18/16 09:02 Pulse 77 12/18/16 12:19 Resp 18 12/18/16 12:19 BP 120/70 12/18/16 12:19 Pulse Ox 99 12/18/16 12:19 - Medical History PMH: Deep Vein Thrombosis, HTN - [facility] Procedures DETOXIFICATION SERVICES FOR SUBSTANCE ABUSE TREATMENT (10/21/16) DRAINAGE OF L PLEURAL CAV WITH DRAIN DEV, PERC APPROACH (10/21/16) FLUOROSCOPY OF SUP VENA CAVA USING L OSM CONTRAST, GUIDANCE (10/21/16) INSERTION OF ENDOTRACHEAL AIRWAY INTO TRACHEA, VIA OPENING (10/21/16) INSERTION OF INFUSION DEV INTO SUP VENA CAVA, PERC APPROACH (10/21/16) INTRODUCTION OF VASOPRESSOR INTO CENTRAL VEIN, PERC APPROACH (10/21/16) PERFORMANCE OF URINARY FILTRATION, MULTIPLE (10/21/16) REMOVAL OF DRAINAGE DEVICE FROM CHEST WALL, ELECTRONICS RESEARCH ENGINEER APPROACH (10/21/16) RESPIRATORY VENTILATION, GREATER THAN 96 CONSECUTIVE HOURS (10/21/16) TRANSFUSE NONAUT PLATELETS IN PERIPH VEIN, PERC (10/21/16) TRANSFUSE NONAUT RED BLOOD CELLS IN PERIPH VEIN, PERC (10/21/16) ULTRASONOGRAPHY OF SUPERIOR VENA CAVA, GUIDANCE (10/21/16) Family History: States: Unknown Family Hx - Social History Hx Alcohol Use: Yes Hx Substance Use: No - Immunization History Hx Tetanus Toxoid Vaccination: Yes Hx Influenza Vaccination: No Hx Pneumococcal Vaccination: No Physical Exam - Physical Exam Appears: Non-toxic, No Acute Distress Skin: Warm, Dry Head: Atraumatic, Normacephalic Neck: Normal ROM, Supple Chest: Symmetrical, No Deformity, No Tenderness Cardiovascular: Rhythm Regular, No Murmur Respiratory: Decreased Breath Sounds (bilateral bases, coarse sounds upper [place]) Gastrointestinal/Abdominal: Bowel Sounds, Soft, No Tenderness Extremity: Bilateral: Other (pitting edema +2-3, right more than left, no posterior calf tenderness) Pulses: Left Dorsalis Pedis: Normal, Right Dorsalis Pedis: Normal Neurological/Psych: Oriented x3, Normal Speech, Normal Cognition, Normal Motor, Normal Sensation ED Course And Treatment - Laboratory Results Result Diagrams: 12/18/16 09:37 12/18/16 09:37 ECG Interpretation: Normal, No Acute Changes Interpretation Of ECG: nsr no st-t changes Rate From EC O2 Sat by Pulse Oximetry: 99 Pulse Ox Interpretation: Normal Medical Decision Making Medical Decision Makin46 y/o male with bilateral leg swelling, hx dvt, and sternal cp x 2 days. normal ekg. check labs, check inr, cxr, re-eval. 151 pm small vessels not visualized on cta, with other findings on ct. will admit to Dr Cisneros, discussed with her, for cp/pe Disposition Discussed With .: Chelsey Cisneros Doctor Will See Patient In The: Hospital - Disposition Disposition Time: 13:55 Condition: STABLE Forms: [facility] (H[place]er) - Clinical Impression Clinical Impression: Chest pain
[2016-12-18 09:47] LABS: BASO # 0.1 K/uL (0.0-0.2); BASO % 1.4 % (0.0-2.0); EOS # 0.4 K/uL (0.0-0.7); EOS % 6.5 % (0.0-4.0); HEMATOCRIT 28.5 % (35.0-51.0); LYMPH # 1.6 K/uL (1.0-4.3); LYMPH % 26.3 % (20.0-40.0); MEAN CELL VOLUME 93.9 fL (80.0-94.0); MEAN CORPUSCULAR HGB CONC 33.1 g/dL (33.0-37.0); MEAN PLATELET VOLUME 8.5 fL (7.2-11.7); MONO # 0.6 K/uL (0.0-0.8); MONO % 10.7 % (0.0-10.0); RED CELL DISTRIBUTION WIDTH 17.2 % (11.5-14.5); WHITE BLOOD COUNT 5.9 K/uL (4.8-10.8)
[2016-12-18 09:57] LABS: INR 1.9
[2016-12-18 10:00] LABS: ALB/GLOB RATIO 0.9 (1.0-2.1); ALKALINE PHOSPHATASE 92 U/L (38-126); ALT/SGPT 31 U/L (21-72); AST/SGOT 30 U/L (17-59); BILIRUBIN,TOTAL 0.7 mg/dL (0.2-1.3); BLOOD UREA NITROGEN 12 mg/dL (9-20); CALCIUM 9.3 mg/dl (8.6-10.4); CARBON DIOXIDE 27 mmol/L (22-30); CHLORIDE 103 mmol/L (98-107); GFR AFRICAN-AMERICAN > 60; GLUCOSE,RANDOM 85 mg/dL (75-110); POTASSIUM 3.8 mmol/L (3.6-5.2); SODIUM 144 mmol/L (132-148); TOTAL PROTEIN 7.8 g/dL (6.3-8.3)
--- NOTE | 2016-12-18 10:00 | RAD ---
HISTORY: chest pain COMPARISON: Chest radiographs 11/30/2016 tear TECHNIQUE: Chest PA and lateral FINDINGS: LUNGS: History of remains limited with fibrotic change suspected both bases including likely at the left costophrenic sulcus though trace left pleural effusions not excluded. No alveolitis and there is likely an element of crowding of bronchovascular markings once again at the bilateral lung bases nevertheless. No alveolitis is appreciate bilaterally. PLEURA: Trace of pleural effusion not excluded. None is seen the right. There is no pneumothorax bilaterally. CARDIOVASCULAR: Normal. OSSEOUS STRUCTURES: No significant abnormalities. VISUALIZED UPPER ABDOMEN: Normal. OTHER FINDINGS: None. IMPRESSION: No acute infiltrate identified bilaterally. An element of crowding of the bronchovascular markings is likely intermixed with chronic limited fibrosis left greater than right lung bases. Fibrosis favored over trace pleural effusion at the left costophrenic sulcus as well.
[2016-12-18] MEDS ORDERED: Iodixanol 320 mg/ml 150 ml Bottle IV ONE (11:30)
[2016-12-18 12:29] LABS: RBC URINE < 1 /hpf (0-3); URINE BILIRUBIN NEGATIVE (NEGATIVE); URINE BLOOD NEGATIVE (NEGATIVE); URINE COLOR Straw (YELLOW); URINE GLUCOSE (UA) NORMAL (Normal); URINE KETONE NEGATIVE (NEGATIVE); URINE LEUKOCYTE ESTERASE NEG Leu/uL (Negative); URINE PROTEIN NEGATIVE (NEGATIVE); URINE UROBILINOGEN NORMAL mg/dL (0.2-1.0); WBC URINE < 1 /hpf (0-5)
--- NOTE | 2016-12-18 13:08 | CT ---
PROCEDURE: CT Chest with contrast (Pulmonary Angiogram) HISTORY: hx dvt with cp, inr 1.9 COMPARISON: 11/30/2016. TECHNIQUE: Axial computed tomography images were obtained of the chest in the pulmonary arterial phase of enhancement. Coronal and sagittal reformatted images were created and reviewed. Intravenous contrast dose: 100 mL Visipaque 320 Radiation dose: Total exam DLP = 568.44 mGy-cm. This CT exam was performed using one or more of the following dose reduction techniques: Automated exposure control, adjustment of the mA and/or kV according to patient size, and/or use of iterative reconstruction technique. FINDINGS: PULMONARY ARTERIES: Limited evaluation technically. Unable to adequately evaluate subsegmental pulmonary arteries. No central, lobar or segmental filling defect identified. AORTA: Mild aneurysmal dilatation of the ascending thoracic aorta to a diameter of 4.1 cm. LUNGS: No pulmonary infiltrate. Linear scar/ atelectasis in both lower lobes. 5 mm pleural-based nodule in right upper lobe (series 5, image 30 close) unchanged from prior examination. No other pulmonary mass. PLEURAL SPACES: Small left pleural effusion. Minimal compressive atelectasis posterior left lower lobe adjacent to pleural effusion. HEART: Normal heart size. LYMPH NODES: No lymphadenopathy. BONES, CHEST WALL: Unremarkable. No fracture or destructive lesion OTHER FINDINGS: Hepatic cirrhosis. Cholelithiasis. Splenomegaly. Rounded fluid density mass in left hepatic lobe, 4.9 cm diameter. Nonspecific. 5 mm nonspecific low-attenuation mass posterior right hepatic lobe (series 3, image 152). Trace ascites noted. IMPRESSION: No evidence of pulmonary embolism. Technical limitation of examination does not allow low evaluation of subsegmental pulmonary artery branches. No pulmonary infiltrate. Minimal left pleural effusion. Mild aneurysmal dilatation of the ascending thoracic aorta. Dilatation of main pulmonary artery to 3.3 cm diameter. Please correlate with any history of pulmonary arterial hypertension. Hepatic cirrhosis. Splenomegaly. Trace ascites. Cholelithiasis. Additional minor findings as above.
--- NOTE | 2016-12-18 17:37 | CP.PCM.HP ---
History of Present Illness - History of Present Illness History of Present Illness: PGY1 Note for Dr. Cisneros HPI: Patient is a 46 male with a hx of HTN and alcohol abuse reports to the ED with mild nonradiating chest pain and b/l 2+ worsening leg edema up to his knees and calf/foot pain. Patient reports the swelling began 4 days ago and has been getting worse. Patient reports the chest pain is minimal and hurts when he pushes on his chest. Patient reports the leg pain to be a 4/10 and burning in nature and that he normally feels fine in the morning but the pain becomes worse by evening because he walks a lot. Patient was recently discharged on 12/10/16 after a prolonged hospital course due to pneumonia, respiratory failure, DVT, alcohol withdrawal. Patient reports diaphoresis at night when he sleeps, back pain, and weight loss (51 lbs during last hospital stay). Patient denies fevers, chills, headache, dizziness, light headedness, palpitations, SOB, abdominal pain, N/V/D/C, urinary problems, recent travel, and changes in appetite. Patient has a follow up appointment in the clinic scheduled on January 04, 2017 Allergies: none PMHx: HTN, Alcohol Abuse PSHx: Permacath (removed) FamHx: Father- of stroke SocHx: Patient stopped smoking 1 yr ago after smoking 1-2 cigarettes a day for 20 years. Patient previously abused alcohol and says he is 1 month and 3 wks sober. Patient denies drug abuse. Patient currently lives in a intermediate and does not have a job. Present on Admission - Present on Admission Any Indicators Present on Admission: No History of DVT/PE: No History of Uncontrolled Diabetes: No Urinary Catheter: No Decubitus Ulcer Present: No History Surgical Site Infection Following: None Review of Systems - Constitutional Constitutional: As Per HPI - EENT Eyes: As Per HPI Ears: As Per HPI Nose/Mouth/Throat: As Per HPI - Cardiovascular Cardiovascular: As Per HPI - Respiratory Respiratory: As Per HPI - Gastrointestinal Gastrointestinal: As Per HPI - Genitourinary Genitourinary: As Per HPI - Reproductive: Male Reproductive:Male: As Per HPI - Musculoskeletal Musculoskeletal: As Per HPI - Integumentary Integumentary: As Per HPI - Neurological Neurological: As Per HPI - Psychiatric Psychiatric: As Per HPI - Endocrine Endocrine: As Per HPI - Hematologic/Lymphatic Hematologic: As Per HPI Past Patient History - Infectious Disease Hx of Infectious Diseases: None - Tetanus Immunizations Tetanus Immunization: Unknown - Past Medical History & Family History Past Medical History?: Yes - Past Social History Smoking Status: Former Smoker - CARDIAC Hx Hypertension: Yes - RENAL Date of Last Dialysis Treatment: 11/23/16 Other/Comment: "I HAD DIALYSIS BECAUSE THEY NEEDED TO CLEAN OUT MY LUNGS FROM THE PNEUMONIA." - HEMATOLOGICAL/ONCOLOGICAL Other/Comment: "FATTY LIVER" - INTEGUMENTARY Hx Psoriasis: Yes - MUSCULOSKELETAL/RHEUMATOLOGICAL Hx Falls: No - PSYCHIATRIC Hx Substance Use: No - SURGICAL HISTORY Hx Surgeries: No - ANESTHESIA Hx Anesthesia: No Meds Allergies/Adverse Reactions: Allergies Allergy/AdvReac Type Severity Reaction Status Date / Time No Known Allergies Allergy Verified 12/18/16 09:03 Physical Exam - Constitutional Appears: Well, Non-toxic, No Acute Distress - Head Exam Head Exam: ATRAUMATIC, NORMAL INSPECTION, NORMOCEPHALIC - Eye Exam Eye Exam: EOMI Pupil Exam: NORMAL ACCOMODATION, PERRL - ENT Exam ENT Exam: Mucous Membranes Moist - Respiratory Exam Respiratory Exam: Chest Wall Tenderness, Clear to Auscultation Bilateral, NORMAL BREATHING PATTERN - Cardiovascular Exam Cardiovascular Exam: REGULAR RHYTHM - GI/Abdominal Exam GI & Abdominal Exam: Normal Bowel Sounds, Soft. absent: Distended, Tenderness - Extremities Exam Extremities exam: Positive for: pedal edema (B/L lower ext edema, 2+) - Neurological Exam Neurological exam: Normal Gait, Oriented x3 - Psychiatric Exam Psychiatric exam: Normal Affect, Normal Mood - Skin Skin Exam: Dry, Intact, Normal Color, Warm Results - Vital Signs Recent Vital Signs: Last Vital Signs Temp 98.1 F 12/18/16 14:53 Pulse 76 12/18/16 16:25 Resp 18 12/18/16 14:53 BP 162/96 H 12/18/16 14:53 Pulse Ox 99 12/18/16 14:53 - Labs Result Diagrams: 12/18/16 09:37 12/18/16 09:37 Assessment & Plan - Assessment and Plan (Free Text) Assessment: B/L Lower Ext. Swelling possibly 2/2 to Liver Cirrhosis * Patient was just d/c on 12/10 * Lasix 40 IV BID for leg swelling * CTA = no PE * F/U LE Doppler * F/U CT A/P * F/U Abd US * F/U Echo Hx of DVT * F/U INR * Coumadin 7.5mg Chest pain * F/U EKG and JON * First trop neg PPX * Pepcid 20mg BID * SCDs * Patient already anticoagulated on Coumadin * Zofran - Date & Time Date: 12/18/16 Time: 17:43
[2016-12-18] MEDS: Sodium Chloride 0.9% 1,000 ML IV SCH (23:02)
[2016-12-19] MEDS ORDERED: Iohexol 240 (50 ml) PO ONE (05:30)
[2016-12-19] MEDS ORDERED: Iodixanol 320 MG/ML 100 ML BOTTLE IV ONE (06:31)
[2016-12-19 07:30] LABS: BASO # 0.1 K/uL (0.0-0.2); BASO % 1.8 % (0.0-2.0); EOS # 0.7 K/uL (0.0-0.7); EOS % 14.1 % (0.0-4.0); HEMATOCRIT 31.3 % (35.0-51.0); LYMPH # 0.9 K/uL (1.0-4.3); MEAN CELL VOLUME 92.7 fL (80.0-94.0); MEAN CORPUSCULAR HGB CONC 33.4 g/dL (33.0-37.0); MEAN PLATELET VOLUME 8.8 fL (7.2-11.7); MONO # 0.4 K/uL (0.0-0.8); MONO % 6.7 % (0.0-10.0); NRBC % 0.1 % (0.0-2.0); RED CELL DISTRIBUTION WIDTH 16.7 % (11.5-14.5); WHITE BLOOD COUNT 5.3 K/uL (4.8-10.8)
[2016-12-19 07:39] LABS: CHLORIDE 100 mmol/L (98-107); SODIUM 143 mmol/L (132-148)
[2016-12-19 07:42] LABS: ALKALINE PHOSPHATASE 98 U/L (38-126); ALT/SGPT 32 U/L (21-72); AST/SGOT 31 U/L (17-59); BLOOD UREA NITROGEN 11 mg/dL (9-20); CARBON DIOXIDE 30 mmol/L (22-30); GFR AFRICAN-AMERICAN > 60; GLUCOSE,RANDOM 83 mg/dL (75-110); TOTAL PROTEIN 7.7 g/dL (6.3-8.3)
[2016-12-19 07:43] LABS: CALCIUM 9.1 mg/dl (8.6-10.4)
--- NOTE | 2016-12-19 12:07 | CT ---
PROCEDURE: CT Abdomen and Pelvis with and without intravenous contrast HISTORY: hepatic cirrhosis, possible mass COMPARISON: None. TECHNIQUE: Axial images of the abdomen were obtained in the pre contrast, portal venous and delayed phases of enhancement. Delayed axial and reconstructed coronal and sagittal images of the abdomen and pelvis were also obtained. Coronal and sagittal reformats were generated. Contrast dose: 100 mL Visipaque 320 Radiation dose: Total exam DLP = 1767.66 mGy-cm. This CT exam was performed using one or more of the following dose reduction techniques: Automated exposure control, adjustment of the mA and/or kV according to patient size, and/or use of iterative reconstruction technique. FINDINGS: LOWER THORAX: There is a trace/small left pleural effusion. No evidence of pneumonia or suspicious mass at the lung bases. Linear opacity seen at the right lower lung of uncertain etiology. The heart is normal in size. LIVER: Cirrhotic minus station of the liver are noted. The arterial phase of the study demonstrate focal heterogeneous increased enhancement at the inferior medial aspect of the left liver lobe image 83 series 5 measures 2.6 centimeter in the transverse diameter and 2 centimeter in the AP diameter. The possibility of hepatocellular carcinoma should be excluded. The differential diagnosis includes less likely benign nodular lesion. There is low-attenuation unenhancing cystic lesion at the left liver lobe measures 4.8 x 5.1 centimeter likely benign. The portal vein is patent. No evidence of significant intrahepatic biliary ductal dilatation. GALLBLADDER AND BILE DUCTS: The gallbladder is mildly distended contains gallstones and demonstrates slight diffuse gallbladder wall thickening. No evidence of acute cholecystitis. PANCREAS: No evidence of pancreatitis or pancreatic mass. SPLEEN: The spleen is [id number] enlarged measures 16.5 centimeter. . ADRENALS: Unremarkable. No mass. KIDNEYS AND URETERS: Unremarkable. No hydronephrosis. No solid mass. There is low-attenuation partially exophytic cystic lesion at the lower pole of the left kidney measures 4.4 by 3.8 centimeter. VASCULATURE: Unremarkable. No aortic aneurysm. BOWEL: Unremarkable. No obstruction. No gross mural thickening. APPENDIX: Normal appendix. PERITONEUM: Nonspecific retroperitoneal fat stranding is seen. . No free fluid. No free air. LYMPH NODES: Unremarkable. No enlarged lymph nodes. BLADDER: Unremarkable. REPRODUCTIVE: Unremarkable. BONES: No acute fracture. Mild grade 1 anterior spondylolisthesis of L5 relative to S1 associated with osteophyte disc herniation complex. OTHER FINDINGS: None. IMPRESSION: Cirrhosis with findings suggestive of portal hypertension. . Arterial enhancing nodule/small mass seen at the inferior medial aspect of the left liver lobe. The possibility of hepatocellular carcinoma should be considered. Further assessment is recommended. Left liver lobe cyst. Gallstones and mild gallbladder wall thickening without evidence of acute cholecystitis. Moderate splenomegaly likely due to portal hypertension. Small left pleural effusion of uncertain etiology. Nonspecific MK fat stranding around the abdominal aorta. Prominent abdominal and pelvic lymph nodes.
--- NOTE | 2016-12-19 13:26 | US ---
HISTORY: Liver pathology COMPARISON: Comparison is made to the previous same-day CT of the abdomen and pelvis without and with IV contrast. Comparison is also made to the previous ultrasound of the abdomen dated 11/13/2016. TECHNIQUE: Sonographic evaluation of the abdomen. FINDINGS: LIVER: Measures 19.6 cm. Heterogeneous echogenicity and cirrhotic changes of the liver are noted. No definite evidence of solid mass lesion seen. The liver is mildly echogenic. There is a cyst seen at the left liver lobe measures 5.6 x 4.4 x 5.2 centimeter. No intrahepatic bile duct dilatation. GALLBLADDER: Unremarkable. No gallstones. COMMON BILE DUCT: Measures 5.5 mm. No stones. No dilatation. PANCREAS: Unremarkable as visualized. No mass. No ductal dilatation. RIGHT KIDNEY: Measures 12.2 x 6.2 x 5.4cm. Normal echogenicity. No calculus, mass, or hydronephrosis. LEFT KIDNEY: Measures 13.1 x 4.8 x 5.9cm. Normal echogenicity. No calculus, mass, or hydronephrosis. There is a cyst seen at the lower pole left kidney measures 3.2 x 3 x3.9 centimeter SPLEEN: Spleen is enlarged measures 15.4 centimeter AORTA: No aneurysmal dilatation. IVC: Unremarkable. OTHER FINDINGS: None. IMPRESSION: Cirrhotic changes and heterogeneous increased echogenicity of the liver noted. Mild to moderate hepatomegaly and splenomegaly. No definite ultrasound evidence of solid mass in the liver. If clinically warranted further assessment by MRI may be obtained. Simple cyst at the left liver lobe measures 5.6 centimeter. Left renal cyst.
--- NOTE | 2016-12-19 16:52 | CP.PCM.PN ---
Subjective - Date & Time of Evaluation Date of Evaluation: 12/19/16 Time of Evaluation: 16:50 - Subjective Subjective: Progress note. Attending: Dr. Cisneros Pt seen and examined at bedside. No acute distress. No events overnight. Triple phase liver CT report pending, GI consulted. No complaints, swelling down. No fevers, chills, vomiting, diarrhea, cp, sob. Objective - Vital Signs/Intake and Output Vital Signs (last 24 hours): Temp Pulse Resp BP Pulse Ox 98 F 83 20 132/67 99 12/19/16 15:00 12/19/16 15:00 12/19/16 15:00 12/19/16 15:00 12/19/16 15:00 Intake and Output: 12/19/16 12/19/16 06:59 18:59 Intake Total 650 400 Balance 650 400 - Medications Medications: Current Medications Docusate Sodium (Colace) 100 mg PO BID [facility] Last Admin: 12/19/16 12:17 Dose: 100 mg Famotidine (Pepcid) 20 mg PO BID [facility] Last Admin: 12/19/16 12:16 Dose: 20 mg Furosemide (Lasix) 40 mg IVP BID [facility] Last Admin: 12/19/16 10:53 Dose: 40 mg Hydralazine HCl (Apresoline) 10 mg IVP Q6H PRN PRN Reason: Systolic Blood Pressure Sodium Chloride (Sodium Chloride 0.9%) 1,000 mls @ 50 mls/hr IV .Q20H [facility] Last Admin: 12/18/16 23:02 Dose: 50 mls/hr Ondansetron HCl (Zofran Inj) 4 mg IVP Q6 PRN PRN Reason: Nausea/Vomiting Pneumococcal Polyvalent Vaccine (Pneumovax 23 Vaccine) 0.5 ml IM .ONCE ONE Stop: 12/22/16 10:01 - Labs Labs: 12/19/16 07:09 12/19/16 07:09 PT 22.4 SECONDS (9.7-12.2) H 12/19/16 07:09 INR 2.0 12/19/16 07:09 APTT 41 SECONDS (21-34) H 12/18/16 09:37 - Constitutional Appears: Non-toxic, No Acute Distress - Head Exam Head Exam: ATRAUMATIC, NORMAL INSPECTION, NORMOCEPHALIC - Eye Exam Eye Exam: EOMI - ENT Exam ENT Exam: Mucous Membranes Moist - Neck Exam Neck Exam: Full ROM, Normal Inspection - Respiratory Exam Respiratory Exam: NORMAL BREATHING PATTERN. absent: Respiratory Distress - Cardiovascular Exam Cardiovascular Exam: +S1, +S2 - GI/Abdominal Exam GI & Abdominal Exam: Soft, Normal Bowel Sounds. absent: Tenderness - Extremities Exam Extremities Exam: Full ROM Additional comments: Minimal swelling b/l - Back Exam Back Exam: NORMAL INSPECTION - Neurological Exam Neurological Exam: Alert, Awake, Oriented x3 - Psychiatric Exam Psychiatric exam: Normal Affect, Normal Mood - Skin Skin Exam: Dry, Intact, Normal Color, Warm Assessment and Plan - Assessment and Plan (Free Text) Assessment: Assessment: This is a 46 yo male presenting with B/L Lower Ext. Swelling possibly 2/2 to Liver Cirrhosis * Patient was just d/c on 12/10 * Lasix 40 IV BID for leg swelling * CTA = no PE * F/U LE Doppler * F/U CT A/P>>> changed to triple phase liver ct * F/U Abd US * F/U Echo * GI consult paced. Dr. Donaldson. recs appreciated. Hx of DVT * F/U INR * Coumadin 7.5mg Chest pain * resolved. trops negative. PPX * Pepcid 20mg BID * SCDs * Patient already anticoagulated on Coumadin * Zofran * discussed with Dr. Cisneros.
--- NOTE | 2016-12-19 18:30 | CP.PCM.CON ---
History of Present Illness - History of Present Illness History of Present Illness: reason for consultation: chest pain rule out pulmonary embolism [id number] male with history of alcohol abuse recently discharged after prolonged hospital course due to respiratory failure/pneumonia, alcohol withdrawal/DTs, DVT status post IVC filter on Coumadin presented with chest pain and swelling of legs. CT of the chest showed no pulmonary embolism in the segmental and main pulmonary arteries. Patient lying comfortably in no respiratory distress and no chest pain. Allergies: none PMHx: HTN, Alcohol Abuse PSHx: Permacath (removed) FamHx: Father- of stroke SocHx: Patient stopped smoking 1 yr ago after smoking 1-2 cigarettes a day for 20 years. Patient previously abused alcohol and says he is 1 month and 3 wks sober. Patient denies drug abuse. Patient currently lives in a chcf and does not have a job. Review of Systems - Review of Systems All systems: reviewed and no additional remarkable complaints except (chest pain ) Past Patient History - Infectious Disease Hx of Infectious Diseases: None - Tetanus Immunizations Tetanus Immunization: Unknown - Past Medical History & Family History Past Medical History?: Yes - Past Social History Smoking Status: Former Smoker - CARDIAC Hx Hypertension: Yes - PULMONARY Hx Respiratory Disorders: No - NEUROLOGICAL Hx Neurological Disorder: No - HEENT Hx HEENT Problems: No - RENAL Hx Chronic Kidney Disease: Yes Date of Last Dialysis Treatment: 11/23/16 Other/Comment: "I HAD DIALYSIS BECAUSE THEY NEEDED TO CLEAN OUT MY LUNGS FROM THE PNEUMONIA.". "dialysis no longer needed" - ENDOCRINE/METABOLIC Hx Endocrine Disorders: No - HEMATOLOGICAL/ONCOLOGICAL Hx Blood Disorders: Yes Hx Blood Transfusions: Yes ("last month") Other/Comment: "FATTY LIVER" - INTEGUMENTARY Hx Dermatological Problems: Yes Hx Psoriasis: Yes - MUSCULOSKELETAL/RHEUMATOLOGICAL Hx Musculoskeletal Disorders: No Hx Falls: No - GASTROINTESTINAL Hx Gastrointestinal Disorders: No - GENITOURINARY/GYNECOLOGICAL Hx Genitourinary Disorders: No - PSYCHIATRIC Hx Substance Use: No - SURGICAL HISTORY Hx Surgeries: Yes Other/Comment: dialysis permacath removed - ANESTHESIA Hx Anesthesia: Yes Hx Anesthesia Reactions: No Hx Malignant Hyperthermia: No Has any member of the family had a problem w/ anesthesia?: No Meds Allergies/Adverse Reactions: Allergies Allergy/AdvReac Type Severity Reaction Status Date / Time No Known Allergies Allergy Verified 12/18/16 09:03 - Medications Medications: Current Medications Docusate Sodium (Colace) 100 mg PO BID [facility] Last Admin: 12/19/16 17:47 Dose: 100 mg Famotidine (Pepcid) 20 mg PO BID [facility] Last Admin: 12/19/16 17:47 Dose: 20 mg Furosemide (Lasix) 40 mg IVP BID [facility] Last Admin: 12/19/16 17:49 Dose: 40 mg Hydralazine HCl (Apresoline) 10 mg IVP Q6H PRN PRN Reason: Systolic Blood Pressure Sodium Chloride (Sodium Chloride 0.9%) 1,000 mls @ 50 mls/hr IV .Q20H [facility] Last Admin: 12/18/16 23:02 Dose: 50 mls/hr Ondansetron HCl (Zofran Inj) 4 mg IVP Q6 PRN PRN Reason: Nausea/Vomiting Pneumococcal Polyvalent Vaccine (Pneumovax 23 Vaccine) 0.5 ml IM .ONCE ONE Stop: 12/22/16 10:01 Physical Exam - Head Exam Head Exam: ATRAUMATIC, NORMOCEPHALIC - Eye Exam Eye Exam: Normal appearance - ENT Exam ENT Exam: Mucous Membranes Moist - Neck Exam Neck exam: Positive for: Normal Inspection - Respiratory Exam Respiratory Exam: Clear to Auscultation Bilateral - Cardiovascular Exam Cardiovascular Exam: REGULAR RHYTHM - GI/Abdominal Exam GI & Abdominal Exam: Normal Bowel Sounds - Extremities Exam Extremities exam: Positive for: pedal edema Results - Vital Signs Recent Vital Signs: Last Vital Signs Temp 98 F 12/19/16 15:00 Pulse 83 12/19/16 15:00 Resp 20 12/19/16 15:00 BP 159/85 H 12/19/16 17:49 Pulse Ox 99 12/19/16 15:00 - Labs Result Diagrams: 12/19/16 07:09 12/19/16 07:09 Labs: Laboratory Results - last 24 hr 12/18/16 12/19/16 12/19/16 18:11 00:04 07:09 WBC RBC Hgb Hct MCV MCH MCHC RDW Plt Count MPV Neut % (Auto) Lymph % (Auto) [place] % (Auto) Eos % (Auto) Baso % (Auto) Neut # Lymph # [place] # Eos # Baso # PT 22.4 H INR 2.0 Sodium Potassium Chloride Carbon Dioxide Anion Gap BUN Creatinine Est GFR ( Amer) Est GFR (Non-Af Amer) Random Glucose Calcium Total Bilirubin AST ALT Alkaline Phosphatase Total Creatine Kinase 34 L 31 L CK-MB (Mass) 0.96 0.81 Troponin I, Quant < 0.0120 < 0.0120 Total Protein Albumin Globulin Albumin/Globulin Ratio 12/19/16 12/19/16 07:09 07:09 WBC 5.3 RBC 3.38 L Hgb 10.5 L Hct 31.3 L MCV 92.7 MCH 31.0 MCHC 33.4 RDW 16.7 H Plt Count 154 MPV 8.8 Neut % (Auto) 59.4 Lymph % (Auto) 18.0 L [place] % (Auto) 6.7 Eos % (Auto) 14.1 H Baso % (Auto) 1.8 Neut # 3.1 Lymph # 0.9 L [place] # 0.4 Eos # 0.7 Baso # 0.1 PT INR Sodium 143 Potassium 4.0 Chloride 100 Carbon Dioxide 30 Anion Gap 16 BUN 11 Creatinine 0.8 Est GFR ( Amer) > 60 Est GFR (Non-Af Amer) > 60 Random Glucose 83 Calcium 9.1 Total Bilirubin 1.0 AST 31 ALT 32 Alkaline Phosphatase 98 Total Creatine Kinase CK-MB (Mass) Troponin I, Quant Total Protein 7.7 Albumin 3.8 Globulin 4.0 H Albumin/Globulin Ratio 1.0 Assessment & Plan (1) Chest pain Status: Acute Comment: no pulmonary embolism. Continue Coumadin for DVT. Followup PT/INR. Followup if necessary (2) DVT (deep venous thrombosis) Status: Acute
[2016-12-19] MEDS: Sodium Chloride 0.9% 1,000 ML IV SCH (18:45)
[2016-12-20] MEDS: Sodium Chloride 0.9% 1,000 ML IV SCH (01:45)
[2016-12-20 08:00] LABS: INR 2.2
[2016-12-20 08:02] LABS: BASO # 0.1 K/uL (0.0-0.2); BASO % 1.2 % (0.0-2.0); EOS # 0.9 K/uL (0.0-0.7); EOS % 17.7 % (0.0-4.0); HEMATOCRIT 29.2 % (35.0-51.0); LYMPH # 1.1 K/uL (1.0-4.3); LYMPH % 20.6 % (20.0-40.0); MEAN CELL VOLUME 91.9 fL (80.0-94.0); MEAN CORPUSCULAR HGB CONC 33.7 g/dL (33.0-37.0); MEAN PLATELET VOLUME 8.8 fL (7.2-11.7); MONO # 0.4 K/uL (0.0-0.8); MONO % 8.6 % (0.0-10.0); NRBC % 0.2 % (0.0-2.0); RED CELL DISTRIBUTION WIDTH 16.7 % (11.5-14.5); WHITE BLOOD COUNT 5.2 K/uL (4.8-10.8)
[2016-12-20 08:18] LABS: CHLORIDE 104 mmol/L (98-107); POTASSIUM 3.5 mmol/L (3.6-5.2); SODIUM 142 mmol/L (132-148)
[2016-12-20 08:20] LABS: BILIRUBIN,TOTAL 0.8 mg/dL (0.2-1.3); CARBON DIOXIDE 28 mmol/L (22-30); GFR AFRICAN-AMERICAN > 60
[2016-12-20 08:21] LABS: ALB/GLOB RATIO 0.9 (1.0-2.1); ALKALINE PHOSPHATASE 88 U/L (38-126); ALT/SGPT 27 U/L (21-72); AST/SGOT 24 U/L (17-59); BLOOD UREA NITROGEN 12 mg/dL (9-20); CALCIUM 8.7 mg/dl (8.6-10.4); GLUCOSE,RANDOM 87 mg/dL (75-110); MAGNESIUM 1.6 mg/dL (1.6-2.3); PHOSPHOROUS 5.8 mg/dL (2.5-4.5); TOTAL PROTEIN 7.3 g/dL (6.3-8.3)
--- NOTE | 2016-12-20 10:12 | CP.PCM.CON ---
History of Present Illness - History of Present Illness History of Present Illness: This is a 46 year old man with alcohol abuse found to have abnormalities of the liver on CT scan. Patient has a 30 year history of alcohol abuse, drinking up to 160 ounces of beer daily. He was recently discharged 12/10/2016 after an admission for DVT (), and he had been hospitalized for five weeks for pneumonia from 10/21/16 to 11/25/16. He complained of swelling of both legs for four days, right more so than left, and chest pain for two days. He denies having nausea, vomiting, heartburn, difficulty swallowing, constipation, diarrhea, rectal bleeding. CT scan showed a nodular liver with foci of enhancement in the left hepatic lobe on the arterial phase, considered to be suspicious for hepatocellular carcinoma. Liver enzymes are entirely within normal limits, and the AFP is 2.3. Review of Systems - Review of Systems All systems: reviewed and no additional remarkable complaints except - Constitutional Constitutional: absent: Chills, Fever, Headache - Cardiovascular Cardiovascular: absent: Dyspnea, Palpitations - Respiratory Respiratory: absent: Dyspnea - Gastrointestinal Gastrointestinal: absent: Abdominal Pain, Constipation, Diarrhea, Dysphagia, Heartburn, Nausea, Vomiting - Neurological Neurological: absent: Dizziness Past Patient History - Infectious Disease Hx of Infectious Diseases: None - Tetanus Immunizations Tetanus Immunization: Unknown - Past Medical History & Family History Past Medical History?: Yes - Past Social History Smoking Status: Former Smoker - CARDIAC Hx Hypertension: Yes - PULMONARY Hx Respiratory Disorders: No - NEUROLOGICAL Hx Neurological Disorder: No - HEENT Hx HEENT Problems: No - RENAL Hx Chronic Kidney Disease: Yes Date of Last Dialysis Treatment: 11/23/16 Other/Comment: "I HAD DIALYSIS BECAUSE THEY NEEDED TO CLEAN OUT MY LUNGS FROM THE PNEUMONIA.". "dialysis no longer needed" - ENDOCRINE/METABOLIC Hx Endocrine Disorders: No - HEMATOLOGICAL/ONCOLOGICAL Hx Blood Disorders: Yes Hx Blood Transfusions: Yes ("last month") Other/Comment: "FATTY LIVER" - INTEGUMENTARY Hx Dermatological Problems: Yes Hx Psoriasis: Yes - MUSCULOSKELETAL/RHEUMATOLOGICAL Hx Musculoskeletal Disorders: No Hx Falls: No - GASTROINTESTINAL Hx Gastrointestinal Disorders: No - GENITOURINARY/GYNECOLOGICAL Hx Genitourinary Disorders: No - PSYCHIATRIC Hx Substance Use: No - SURGICAL HISTORY Hx Surgeries: Yes Other/Comment: dialysis permacath removed - ANESTHESIA Hx Anesthesia: Yes Hx Anesthesia Reactions: No Hx Malignant Hyperthermia: No Has any member of the family had a problem w/ anesthesia?: No Meds Allergies/Adverse Reactions: Allergies Allergy/AdvReac Type Severity Reaction Status Date / Time No Known Allergies Allergy Verified 12/18/16 09:03 - Medications Medications: Current Medications Docusate Sodium (Colace) 100 mg PO BID [facility] Last Admin: 12/20/16 09:10 Dose: 100 mg Famotidine (Pepcid) 20 mg PO BID [facility] Last Admin: 12/20/16 09:11 Dose: 20 mg Furosemide (Lasix) 40 mg IVP BID [facility] Last Admin: 12/20/16 09:10 Dose: 40 mg Hydralazine HCl (Apresoline) 10 mg IVP Q6H PRN PRN Reason: Systolic Blood Pressure Sodium Chloride (Sodium Chloride 0.9%) 1,000 mls @ 50 mls/hr IV .Q20H [facility] Last Admin: 12/20/16 01:45 Dose: 50 mls/hr Ondansetron HCl (Zofran Inj) 4 mg IVP Q6 PRN PRN Reason: Nausea/Vomiting Pneumococcal Polyvalent Vaccine (Pneumovax 23 Vaccine) 0.5 ml IM .ONCE ONE Stop: 12/22/16 10:01 Physical Exam - Constitutional Appears: No Acute Distress - Head Exam Head Exam: ATRAUMATIC, NORMOCEPHALIC - Eye Exam Eye Exam: EOMI, PERRL - Neck Exam Neck exam: Negative for: Lymphadenopathy, Thyromegaly - Respiratory Exam Respiratory Exam: NORMAL BREATHING PATTERN. absent: Rales, Rhonchi, Wheezes - Cardiovascular Exam Cardiovascular Exam: REGULAR RHYTHM, +S1, +S2. absent: Rubs, Systolic Murmur - GI/Abdominal Exam GI & Abdominal Exam: Normal Bowel Sounds, Soft. absent: Mass, Organomegaly, Tenderness - Rectal Exam Rectal Exam: Deferred - Extremities Exam Extremities exam: Negative for: calf tenderness, pedal edema Results - Vital Signs Recent Vital Signs: Last Vital Signs Temp 98.5 F 12/20/16 07:00 Pulse 80 12/20/16 07:30 Resp 20 12/20/16 07:00 BP 160/85 H 12/20/16 09:10 Pulse Ox 97 12/20/16 07:00 - Labs Result Diagrams: 12/20/16 07:45 12/20/16 07:45 Labs: Laboratory Results - last 24 hr 12/20/16 12/20/16 12/20/16 07:45 07:45 07:45 WBC 5.2 RBC 3.17 L Hgb 9.8 L Hct 29.2 L MCV 91.9 MCH 31.0 MCHC 33.7 RDW 16.7 H Plt Count 134 MPV 8.8 Neut % (Auto) 51.9 Lymph % (Auto) 20.6 [place] % (Auto) 8.6 Eos % (Auto) 17.7 H Baso % (Auto) 1.2 Neut # 2.7 Lymph # 1.1 [place] # 0.4 Eos # 0.9 H Baso # 0.1 PT 25.8 H INR 2.2 Sodium 142 Potassium 3.5 L Chloride 104 Carbon Dioxide 28 Anion Gap 14 BUN 12 Creatinine 0.9 Est GFR ( Amer) > 60 Est GFR (Non-Af Amer) > 60 Random Glucose 87 Calcium 8.7 Phosphorus 5.8 H Magnesium 1.6 Total Bilirubin 0.8 AST 24 ALT 27 Alkaline Phosphatase 88 Total Protein 7.3 Albumin 3.5 Globulin 3.9 Albumin/Globulin Ratio 0.9 L Alpha Fetoprotein Ur Random Sodium 12/20/16 12/20/16 07:45 08:47 WBC RBC Hgb Hct MCV MCH MCHC RDW Plt Count MPV Neut % (Auto) Lymph % (Auto) [place] % (Auto) Eos % (Auto) Baso % (Auto) Neut # Lymph # [place] # Eos # Baso # PT INR Sodium Potassium Chloride Carbon Dioxide Anion Gap BUN Creatinine Est GFR ( Amer) Est GFR (Non-Af Amer) Random Glucose Calcium Phosphorus Magnesium Total Bilirubin AST ALT Alkaline Phosphatase Total Protein Albumin Globulin Albumin/Globulin Ratio Alpha Fetoprotein 2.3 Ur Random Sodium 87 Assessment & Plan (1) Liver mass, left lobe Assessment and Plan: Patient has a long history of alcohol abuse and evidence of cirrhosis on CT scan. There is a focus of enhancement on the arterial phase, suspicious for hepatocellular carcinoma. Will order MRI. Patient should also have an elective EGD to screen for varices, which can be done as an outpatient. Status: Acute
--- NOTE | 2016-12-20 17:23 | CP.PCM.PN ---
Subjective - Date & Time of Evaluation Date of Evaluation: 12/20/16 Time of Evaluation: 17:20 - Subjective Subjective: Progress note. Attending: Dr. Cisneros Pt seen and examined at bedside. No acute distress. No events overnight. Pt has cirrhosis of the liver on ct scan, GI following. No fevers, chills, vomiting, diarrhea. Objective - Vital Signs/Intake and Output Vital Signs (last 24 hours): Temp Pulse Resp BP Pulse Ox 98.1 F 80 20 135/87 100 12/20/16 15:27 12/20/16 15:27 12/20/16 15:27 12/20/16 15:27 12/20/16 15:27 Intake and Output: 12/20/16 12/20/16 06:59 18:59 Intake Total 880 400 Output Total 550 Balance 330 400 - Medications Medications: Current Medications Docusate Sodium (Colace) 100 mg PO BID [facility] Last Admin: 12/20/16 09:10 Dose: 100 mg Famotidine (Pepcid) 20 mg PO BID [facility] Last Admin: 12/20/16 09:11 Dose: 20 mg Furosemide (Lasix) 40 mg IVP BID [facility] Last Admin: 12/20/16 09:10 Dose: 40 mg Hydralazine HCl (Apresoline) 10 mg IVP Q6H PRN PRN Reason: Systolic Blood Pressure Sodium Chloride (Sodium Chloride 0.9%) 1,000 mls @ 50 mls/hr IV .Q20H [facility] Last Admin: 12/20/16 01:45 Dose: 50 mls/hr Ondansetron HCl (Zofran Inj) 4 mg IVP Q6 PRN PRN Reason: Nausea/Vomiting Pneumococcal Polyvalent Vaccine (Pneumovax 23 Vaccine) 0.5 ml IM .ONCE ONE Stop: 12/22/16 10:01 Warfarin Sodium (Coumadin) 7.5 mg PO 1800 [facility] Stop: 12/20/16 18:01 - Labs Labs: 12/20/16 07:45 12/20/16 07:45 PT 25.8 SECONDS (9.7-12.2) H 12/20/16 07:45 INR 2.2 12/20/16 07:45 APTT 41 SECONDS (21-34) H 12/18/16 09:37 - Constitutional Appears: Non-toxic, No Acute Distress - Head Exam Head Exam: ATRAUMATIC, NORMAL INSPECTION, NORMOCEPHALIC - Eye Exam Eye Exam: EOMI - ENT Exam ENT Exam: Mucous Membranes Moist - Neck Exam Neck Exam: Full ROM, Normal Inspection - Respiratory Exam Respiratory Exam: NORMAL BREATHING PATTERN. absent: Respiratory Distress - Cardiovascular Exam Cardiovascular Exam: +S1, +S2 - GI/Abdominal Exam GI & Abdominal Exam: Soft, Normal Bowel Sounds. absent: Tenderness - Extremities Exam Extremities Exam: Pedal Edema. absent: Normal Inspection Additional comments: some b/l leg edema - Neurological Exam Neurological Exam: Alert, Awake, Oriented x3 - Psychiatric Exam Psychiatric exam: Normal Affect, Normal Mood - Skin Skin Exam: Dry, Intact, Normal Color, Warm Assessment and Plan - Assessment and Plan (Free Text) Assessment: This is a 46 yo male with past medical hx of pulmonary HTN, alcohol abuse, HTN, DVT, respiratory failure presenting with 1. cirrhosis/portal HTN -triple phase ct scan shows cirrhosis and portal htn -gi following. recs appreciated. 2. Nodule in liver -suggestive of hepatocellular carcinoma -continue to monitor -may need biopsy 3. hx of HTN -continue hydralazine 10 iv q 6 hrs 4. Hx of alcohol abuse -pt told to abstain from alcohol abuse 5. leg swelling/hx of DVT -f/u dopplers -continue lasix iv bid -warfarin 7.5 mg po tonight -f/u inr tomorrow 6. GI/DVT ppx cont colace -continue pepcid -continue zofran -warfarin tonight discusssed with Dr. Cisneros
[2016-12-21] MEDS: Sodium Chloride 0.9% 1,000 ML IV SCH ×2 (03:50→10:45)
[2016-12-21 06:24] LABS: BASO % 0.9 % (0.0-2.0); EOS # 0.7 K/uL (0.0-0.7); EOS % 13.3 % (0.0-4.0); LYMPH # 1.3 K/uL (1.0-4.3); LYMPH % 25.1 % (20.0-40.0); MEAN CELL VOLUME 92.3 fL (80.0-94.0); MEAN CORPUSCULAR HEMOGLOBIN 30.3 pg (27.0-31.0); MEAN CORPUSCULAR HGB CONC 32.9 g/dL (33.0-37.0); MEAN PLATELET VOLUME 8.6 fL (7.2-11.7); MONO # 0.4 K/uL (0.0-0.8); MONO % 8.3 % (0.0-10.0); RED CELL DISTRIBUTION WIDTH 16.9 % (11.5-14.5); WHITE BLOOD COUNT 5.1 K/uL (4.8-10.8)
[2016-12-21 06:35] LABS: INR 2.1
[2016-12-21 06:45] LABS: ALB/GLOB RATIO 0.9 (1.0-2.1); ALKALINE PHOSPHATASE 88 U/L (38-126); ALT/SGPT 29 U/L (21-72); AST/SGOT 24 U/L (17-59); BILIRUBIN,TOTAL 0.8 mg/dL (0.2-1.3); BLOOD UREA NITROGEN 13 mg/dL (9-20); CARBON DIOXIDE 29 mmol/L (22-30); CHLORIDE 101 mmol/L (98-107); GFR AFRICAN-AMERICAN > 60; GLUCOSE,RANDOM 88 mg/dL (75-110); MAGNESIUM 1.6 mg/dL (1.6-2.3); PHOSPHOROUS 5.6 mg/dL (2.5-4.5); POTASSIUM 3.5 mmol/L (3.6-5.2); SODIUM 143 mmol/L (132-148); TOTAL PROTEIN 7.5 g/dL (6.3-8.3)
--- NOTE | 2016-12-21 07:49 | CP.PCM.PN ---
Subjective - Date & Time of Evaluation Date of Evaluation: 12/21/16 Time of Evaluation: 07:49 Objective - Vital Signs/Intake and Output Vital Signs (last 24 hours): Temp Pulse Resp BP Pulse Ox 98.1 F 73 20 134/82 96 12/20/16 23:00 12/21/16 03:26 12/20/16 23:00 12/20/16 23:00 12/20/16 23:00 Intake and Output: 12/21/16 12/21/16 06:59 18:59 Intake Total 1200 Output Total 2500 Balance -1300 - Medications Medications: Current Medications Docusate Sodium (Colace) 100 mg PO BID [facility] Last Admin: 12/20/16 17:47 Dose: 100 mg Famotidine (Pepcid) 20 mg PO BID [facility] Last Admin: 12/20/16 17:46 Dose: 20 mg Furosemide (Lasix) 40 mg IVP BID [facility] Last Admin: 12/20/16 17:47 Dose: 40 mg Hydralazine HCl (Apresoline) 10 mg IVP Q6H PRN PRN Reason: Systolic Blood Pressure Sodium Chloride (Sodium Chloride 0.9%) 1,000 mls @ 50 mls/hr IV .Q20H [facility] Last Admin: 12/21/16 03:50 Dose: 50 mls/hr Ondansetron HCl (Zofran Inj) 4 mg IVP Q6 PRN PRN Reason: Nausea/Vomiting Pneumococcal Polyvalent Vaccine (Pneumovax 23 Vaccine) 0.5 ml IM .ONCE ONE Stop: 12/22/16 10:01 - Labs Labs: 12/21/16 06:16 12/21/16 06:16 PT 23.8 SECONDS (9.7-12.2) H 12/21/16 06:16 INR 2.1 12/21/16 06:16 APTT 41 SECONDS (21-34) H 12/18/16 09:37 Assessment and Plan - Assessment and Plan (Free Text) Assessment: This is a 46 yo male with past medical hx of pulmonary HTN, alcohol abuse, HTN, DVT, respiratory failure presenting with 1. cirrhosis/portal HTN -triple phase ct scan shows cirrhosis and portal htn -gi following. recs appreciated. 2. Nodule in liver -suggestive of hepatocellular carcinoma -continue to monitor -may need biopsy 3. hx of HTN -continue hydralazine 10 iv q 6 hrs 4. Hx of alcohol abuse -pt told to abstain from alcohol abuse 5. leg swelling/hx of DVT -f/u dopplers -continue lasix iv bid -warfarin 7.5 mg po tonight -f/u inr tomorrow 6. GI/DVT ppx cont colace -continue pepcid -continue zofran -warfarin tonight
[2016-12-21] MEDS ORDERED: Gadodiamide 287 MG/ML VIAL (15ML) IV ONE (10:50)
--- NOTE | 2016-12-21 12:12 | MRI ---
PROCEDURE: MRI Abdomen with and without contrast HISTORY: Hepatic cirrhosis and liver mass. COMPARISON: None available. TECHNIQUE: Multisequence, multiplanar MR images of the abdomen with and without gadolinium contrast enhancement. 14 mL of Omniscan was injected intravenously. FINDINGS: LIVER: Cirrhotic changes are again noted. There is arterial barely enhancing nodule at the inferior aspect of the left liver lobe measures 18 x 17 millimeter best seen on image 18 series 5. This nodule demonstrates rapid washout and Iso enhancement with the rest of the liver in the rest of the postcontrast images. Again seen is with defined cyst at the left liver lobe measures 5.2 x 4.6 centimeter. Diffuse heterogeneous enhancement of the liver and patchy foci of low signal seen. The portal vein is patent. GALLBLADDER: The gallbladder is distended contains gallstones without evidence of acute cholecystitis. SPLEEN: The spleen is enlarged measures 15.7 centimeter. PANCREAS: Unremarkable. ADRENALS: Unremarkable. KIDNEYS: Again seen is partially exophytic cyst at the lower pole of the left kidney measures 3.8 x 4.4 centimeter. AORTA: No aneurysm. ASCITES: No evidence of significant ascites. PERITONEUM: Unremarkable. LYMPH NODES: Unremarkable. OTHER FINDINGS: None. IMPRESSION: And air early arterial enhancing nodule at the inferior aspect of the left liver lobe measures 1.8 x 1.7 centimeter again identified. The possibility of hepatoma cannot be excluded. If clinically warranted CT-guided biopsy or close follow-up reassessment after 3 months is recommended. Cirrhosis with findings suggestive of portal hypertension. Splenomegaly. Gallstones without evidence of cholecystitis.
[2016-12-21] MEDS ORDERED: Potassium Chloride 20 mEq/15 ml LIQ UD PO ONE (12:47)
[2016-12-21 16:14] VITALS: RESP 20
--- NOTE | 2016-12-21 16:21 | CP.PCM.DIS ---
Provider - Provider Date of Admission: 12/21/16 07:50 Attending physician: Chelsey Cisneros DO Primary care physician: Clinic Time Spent in preparation of Discharge (in minutes): 45 Hospital Course - Lab Results Lab Results: Most Recent Lab Values WBC 5.1 K/uL (4.8-10.8) 12/21/16 06:16 RBC 3.47 Mil/uL (4.40-5.90) L 12/21/16 06:16 Hgb 10.5 g/dL (12.0-18.0) L 12/21/16 06:16 Hct 32.0 % (35.0-51.0) L 12/21/16 06:16 MCV 92.3 fL (80.0-94.0) 12/21/16 06:16 MCH 30.3 pg (27.0-31.0) 12/21/16 06:16 MCHC 32.9 g/dL (33.0-37.0) L 12/21/16 06:16 RDW 16.9 % (11.5-14.5) H 12/21/16 06:16 Plt Count 140 K/uL (130-400) 12/21/16 06:16 MPV 8.6 fL (7.2-11.7) 12/21/16 06:16 Neut % (Auto) 52.4 % (50.0-75.0) 12/21/16 06:16 Lymph % (Auto) 25.1 % (20.0-40.0) 12/21/16 06:16 [place] % (Auto) 8.3 % (0.0-10.0) 12/21/16 06:16 Eos % (Auto) 13.3 % (0.0-4.0) H 12/21/16 06:16 Baso % (Auto) 0.9 % (0.0-2.0) 12/21/16 06:16 Neut # 2.7 K/uL (1.8-7.0) 12/21/16 06:16 Lymph # 1.3 K/uL (1.0-4.3) 12/21/16 06:16 [place] # 0.4 K/uL (0.0-0.8) 12/21/16 06:16 Eos # 0.7 K/uL (0.0-0.7) 12/21/16 06:16 Baso # 0.0 K/uL (0.0-0.2) 12/21/16 06:16 PT 23.8 SECONDS (9.7-12.2) H 12/21/16 06:16 INR 2.1 12/21/16 06:16 APTT 41 SECONDS (21-34) H 12/18/16 09:37 Sodium 143 mmol/L (132-148) 12/21/16 06:16 Potassium 3.5 mmol/L (3.6-5.2) L 12/21/16 06:16 Chloride 101 mmol/L (98-107) 12/21/16 06:16 Carbon Dioxide 29 mmol/L (22-30) 12/21/16 06:16 Anion Gap 17 (10-20) 12/21/16 06:16 BUN 13 mg/dL (9-20) 12/21/16 06:16 Creatinine 0.9 MG/DL (0.8-1.5) 12/21/16 06:16 Est GFR ( Amer) > 60 12/21/16 06:16 Est GFR (Non-Af Amer) > 60 12/21/16 06:16 Random Glucose 88 mg/dL (75-110) 12/21/16 06:16 Calcium 9.0 mg/dl (8.6-10.4) 12/21/16 06:16 Phosphorus 5.6 mg/dL (2.5-4.5) H 12/21/16 06:16 Magnesium 1.6 mg/dL (1.6-2.3) 12/21/16 06:16 Total Bilirubin 0.8 mg/dL (0.2-1.3) 12/21/16 06:16 AST 24 U/L (17-59) 12/21/16 06:16 ALT 29 U/L (21-72) 12/21/16 06:16 Alkaline Phosphatase 88 U/L (38-126) 12/21/16 06:16 Total Creatine Kinase 31 U/L (55-170) L 12/19/16 00:04 CK-MB (Mass) 0.81 ng/mL (0.0-3.38) 12/19/16 00:04 Troponin I < 0.0120 ng/mL (0.00-0.120) 12/18/16 09:37 Troponin I, Quant < 0.0120 ng/mL (0.00-0.120) 12/19/16 00:04 NT-Pro-B Natriuret Pep 355 pg/mL (0-450) 12/18/16 09:37 Total Protein 7.5 g/dL (6.3-8.3) 12/21/16 06:16 Albumin 3.6 g/dL (3.5-5.0) 12/21/16 06:16 Globulin 4.0 gm/dL (2.2-3.9) H 12/21/16 06:16 Albumin/Globulin Ratio 0.9 (1.0-2.1) L 12/21/16 06:16 Alpha Fetoprotein 2.3 ng/mL (0.0-7.5) 12/20/16 07:45 Urine Color Straw (YELLOW) 12/18/16 12:21 Urine Clarity Clear (Clear) 12/18/16 12:21 Urine pH 7.0 (5.0-8.0) 12/18/16 12:21 Ur Specific Superior 1.008 (1.003-1.030) 12/18/16 12:21 Urine Protein Negative mg/dL (NEGATIVE) 12/18/16 12:21 Urine Glucose (UA) Normal mg/dL (Normal) 12/18/16 12:21 Urine Ketones Negative mg/dL (NEGATIVE) 12/18/16 12:21 Urine Blood Negative (NEGATIVE) 12/18/16 12:21 Urine Nitrate Negative (NEGATIVE) 12/18/16 12:21 Urine Bilirubin Negative (NEGATIVE) 12/18/16 12:21 Urine Urobilinogen Normal mg/dL (0.2-1.0) 12/18/16 12:21 Ur Leukocyte Esterase Neg Sangeetha/uL (Negative) 12/18/16 12:21 Urine WBC (Auto) < 1 /hpf (0-5) 12/18/16 12:21 Urine RBC (Auto) < 1 /hpf (0-3) 12/18/16 12:21 Ur Random Sodium 87 mmol/L 12/20/16 08:47 - Hospital Course Hospital Course: On admission: Patient is a 46 male with a hx of HTN and alcohol abuse reports to the ED with mild nonradiating chest pain and b/l 2+ worsening leg edema up to his knees and calf/foot pain. Patient reports the swelling began 4 days ago and has been getting worse. Patient reports the chest pain is minimal and hurts when he pushes on his chest. Patient reports the leg pain to be a 4/ 10 and burning in nature and that he normally feels fine in the morning but the pain becomes worse by evening because he walks a lot. Patient was recently discharged on 12/10/16 after a prolonged hospital course due to pneumonia, respiratory failure, DVT, alcohol withdrawal. Patient reports diaphoresis at night when he sleeps, back pain, and weight loss (51 lbs during last hospital stay). Patient denies fevers, chills, headache, dizziness, light headedness, palpitations, SOB, abdominal pain, N/V/D/C, urinary problems, recent travel, and changes in appetite. Patient is a 46 year old male presenting with worsening bilateral leg swelling. An chest CT scan noted hepatic cirrhosis, splenomegaly, and cholelithiasis. Abdominal U/S was performed and noted a simple cyst at the left liver lobe measuring 5.6 cm. Also noted cirrhotic changes and heterogeneous increased echogenicity of the liver noted. Patient had a Duplex scan of the lower extremity and and EKG performed. Not acute findings noted. Liver CT was performed. Cirrhosis with findings suggestive of portal hypertension. Arterial enhancing small mass seen on inferior medial left liver lobe. Hepatocellular carcinoma should be considered. Gallstones noted. Dr. Gomez was consulted because pt began complaining of chest pain. Because of the noted liver mass Dr. Mendez was consulted. Abdominal MRI was performed and noted the previous documented mass and cirrhosis. Patient currently looks well in bed and no acute distress. Swelling in the legs has subsided. Patient will be DC and will be instructed to f/u out patient. - Date & Time of H&P Date of H&P: 12/18/16 Time of H&P: 17:34 Discharge Exam - Head Exam Head Exam: ATRAUMATIC, NORMAL INSPECTION, NORMOCEPHALIC - Eye Exam Eye Exam: EOMI Pupil Exam: NORMAL ACCOMODATION - ENT Exam ENT Exam: Mucous Membranes Moist - Respiratory Exam Respiratory Exam: NORMAL BREATHING PATTERN, UNREMARKABLE - Cardiovascular Exam Cardiovascular Exam: REGULAR RHYTHM - GI/Abdominal Exam GI & Abdominal Exam: Normal Bowel Sounds, Soft. absent: Distended, Tenderness - Neurological Exam Neurological exam: Alert, Oriented x3 - Psychiatric Exam Psychiatric exam: Normal Affect, Normal Mood - Skin Skin Exam: Dry, Intact, Normal Color, Warm Discharge Plan - Follow Up Plan Condition: STABLE Disposition: HOME/ ROUTINE Additional Instructions: Patient is stable and clear for Discharge. I wrote a script for the patient to go to the clinic to get his INR checked. He has an additional appointment on 01/04/17 for follow up of his liver disease. He needs to have repeat imaging of the liver in 6 months and follow up with a [facility] Worker. Please take the following medications: Lasix 40mg by mouth twice a day Apresoline 10mg by mouth 4 times per day Coumadin 7.5mg by mouth every night If symptoms return, please come back to the ER Referrals: [facility] at [facility] [Outside]
[2016-12-22 06:42] LABS: BASO # 0.1 K/uL (0.0-0.2); EOS # 0.7 K/uL (0.0-0.7); EOS % 10.9 % (0.0-4.0); HEMATOCRIT 32.6 % (35.0-51.0); LYMPH # 1.7 K/uL (1.0-4.3); LYMPH % 25.2 % (20.0-40.0); MEAN CELL VOLUME 92.5 fL (80.0-94.0); MEAN CORPUSCULAR HGB CONC 33.5 g/dL (33.0-37.0); MEAN PLATELET VOLUME 8.7 fL (7.2-11.7); MONO # 0.5 K/uL (0.0-0.8); MONO % 7.7 % (0.0-10.0); RED CELL DISTRIBUTION WIDTH 16.4 % (11.5-14.5); WHITE BLOOD COUNT 6.6 K/uL (4.8-10.8)
[2016-12-22 06:46] LABS: INR 1.9
[2016-12-22 07:18] LABS: CHLORIDE 99 mmol/L (98-107)
[2016-12-22 07:19] LABS: POTASSIUM 3.8 mmol/L (3.6-5.2); SODIUM 140 mmol/L (132-148)
[2016-12-22 07:21] LABS: AST/SGOT 28 U/L (17-59); BILIRUBIN,TOTAL 0.9 mg/dL (0.2-1.3); CARBON DIOXIDE 31 mmol/L (22-30); GFR AFRICAN-AMERICAN > 60; TOTAL PROTEIN 7.7 g/dL (6.3-8.3)
[2016-12-22 07:22] LABS: ALKALINE PHOSPHATASE 81 U/L (38-126); ALT/SGPT 29 U/L (21-72); BLOOD UREA NITROGEN 14 mg/dL (9-20); CALCIUM 9.6 mg/dl (8.6-10.4); GLUCOSE,RANDOM 93 mg/dL (75-110)
[2016-12-22 08:49] VITALS: PULSE 74; TEMP 97.7; O2SAT 98
[2016-12-22 09:24] VITALS: BP 153/91
[2016-12-22] MEDS ORDERED: Pneumococcal 23-Valent Vaccine IM ONE (10:00)
[2016-12-22] MEDS ORDERED: Influenza Virus Vaccine 45 mcg/0.5 ml Syr IM ONE (10:00)
--- NOTE | 2016-12-22 22:51 | CARD ---
APPROVED REPORT EKG Measurement Heart [id number] <Conclusion> Normal sinus rhythm
--- NOTE | 2016-12-24 09:37 | CARD ---
APPROVED REPORT EKG Measurement Heart [id number] [id number] <Conclusion> Normal sinus rhythm Normal ECG
== END 2016-12-22 11:54 | disposition home or self-care (01) | DRG 202 ==
LOC: C.ER 08:56 → C.9E 13:53 → C.6T 14:08 → OBSVTOIN 12-21 07:50
PROVIDERS: ADMIT Hospitalist; ATTEND Hospitalist
DX: K74.60 Unspecified cirrhosis of liver (principal); K76.6 Portal hypertension; I27.2 Other secondary pulmonary hypertension; N18.9 Chronic kidney disease, unspecified; F10.10 Alcohol abuse, uncomplicated; I12.9 Hypertensive chronic kidney disease with stage 1 through stage 4 chronic kidney disease, or unspecified chronic kidney disease; F17.211 Nicotine dependence, cigarettes, in remission; K80.20 Calculus of gallbladder without cholecystitis without obstruction; K76.89 Other specified diseases of liver; Z79.01 Long term (current) use of anticoagulants; Z82.3 Family history of stroke; Z86.718 Personal history of other venous thrombosis and embolism; Z87.01 Personal history of pneumonia (recurrent)

== ENCOUNTER 2018-02-08 08:46 | Emergency (ER) | payer OTHER ==
[2018-02-08 08:47] VITALS: BMI 30.5
[2018-02-08 09:07] VITALS: RESP 20
[2018-02-08] MEDS ORDERED: Morphine 4 MG/ML VIAL ONE (09:27)
--- NOTE | 2018-02-08 09:42 | C.PDOC ---
History Of Present Illness 47-year-old male presents to the emergency department with complaints of right shoulder pain that he developed last night after a fall at approx 19:00. Patient states he was intoxicated and fell on the street, on his face, shoulder and knees. He denies loss of consciousness but cannot move the right shoulder at all. Patient notes tetanus vaccination status is up to date. Time Seen by Provider: 02/08/18 09:03 Chief Complaint (Nursing): Upper Extremity Problem/Injury History Per: Patient History/Exam Limitations: no limitations Current Symptoms Are (Timing): Still Present Quality: "Pain" Severity: Moderate Past Medical History Reviewed: Historical Data, Nursing Documentation, Vital Signs Vital Signs: Last Vital Signs Temp 98.3 F 02/08/18 08:54 Pulse 111 H 02/08/18 08:54 Resp 20 02/08/18 08:54 BP 165/103 H 02/08/18 08:54 Pulse Ox 95 02/08/18 08:54 - Medical History PMH: Deep Vein Thrombosis, HTN, Chronic Kidney Disease - [facility] Procedures DETOXIFICATION SERVICES FOR SUBSTANCE ABUSE TREATMENT (10/21/16) DRAINAGE OF L PLEURAL CAV WITH DRAIN DEV, PERC APPROACH (10/21/16) FLUOROSCOPY OF SUP VENA CAVA USING L OSM CONTRAST, GUIDANCE (10/21/16) INSERTION OF ENDOTRACHEAL AIRWAY INTO TRACHEA, VIA OPENING (10/21/16) INSERTION OF INFUSION DEV INTO SUP VENA CAVA, PERC APPROACH (10/21/16) INTRODUCTION OF VASOPRESSOR INTO CENTRAL VEIN, PERC APPROACH (10/21/16) PERFORMANCE OF URINARY FILTRATION, MULTIPLE (10/21/16) REMOVAL OF DRAINAGE DEVICE FROM CHEST WALL, MINISTER HELPER APPROACH (10/21/16) RESPIRATORY VENTILATION, GREATER THAN 96 CONSECUTIVE HOURS (10/21/16) TRANSFUSE NONAUT PLATELETS IN PERIPH VEIN, PERC (10/21/16) TRANSFUSE NONAUT RED BLOOD CELLS IN PERIPH VEIN, PERC (10/21/16) ULTRASONOGRAPHY OF SUPERIOR VENA CAVA, GUIDANCE (10/21/16) Family History: States: No Known Family Hx - Social History Hx Alcohol Use: Yes Hx Substance Use: No - Immunization History Hx Tetanus Toxoid Vaccination: Yes Hx Influenza Vaccination: No Hx Pneumococcal Vaccination: No Review Of Systems Constitutional: Negative for: Fever Respiratory: Negative for: Shortness of Breath Gastrointestinal: Negative for: Nausea, Vomiting Musculoskeletal: Positive for: Shoulder Pain Neurological: Negative for: Weakness, Numbness, Headache, Dizziness Physical Exam - Physical Exam Appears: Well, Non-toxic, In Acute Distress (in moderate pain) Skin: Normal Color, Warm, Dry, Other (+psoriatic patches to the extensor forearms and scalp. +abrasion on right elbow.) Head: Normacephalic, Abrasion (multiple face abrasions) Eye(s): bilateral: Normal Inspection, PERRL, EOMI Nose: Normal, No Discharge, No Epistaxis, No Deformity, No Septal Hematoma Oral Mucosa: Moist Neck: Normal, Normal ROM, No Midline Cervical Tenderness, No Paracervical Tenderness, No Step Off Deformity, Supple Chest: Symmetrical Cardiovascular: Rhythm Regular Respiratory: Normal Breath Sounds, No Rales, No Rhonchi, No Wheezing Gastrointestinal/Abdominal: Normal Exam, Bowel Sounds, Soft, No Tenderness Extremity: Tenderness, Capillary Refill (<2 seconds all digits ), Other (right shoulder tender to palpation with moderate swelling anteriorly, suspicious for dislocation. unable to abduct or rotate) Pulses: Left Radial: Normal, Right Radial: Normal Neurological/Psych: Oriented x3, Normal Speech, Normal Cognition ED Course And Treatment O2 Sat by Pulse Oximetry: 95 (RA) Pulse Ox Interpretation: Normal Progress Note: Xrays of right shoulder, CT head and facial bones ordered and reviewed. Patient given IV morphine for pain. Orthopedic Time Performed: 12:00 Time Out: Side verified Procedure: Joint reduction Consent obtained: Written Performed by: Attending Physician Diagnosis: Dislocation Type: Closed Location: Right Bone: Humerus Procedural Sedation: Propofol (100mg) Capillary refill: Normal Distal Sensation: Normal Distal Motor Function: Normal Capillary Refill: Normal Compartment: Normal Distal Sensation: Normal Distal Motor Function: Normal Post-reduction Radiograph: Reduced Disposition - Disposition Disposition Time: 13:00 Condition: STABLE Forms: [facility] (Setswana) - Clinical Impression Clinical Impression: Head injury, acute, Dislocation of right shoulder joint, Abrasions of multiple sites - Scribe Statement The provider has reviewed the documentation as recorded by the Scribe (Chauncey Hernandez) Provider Attestation: All medical record entries made by the Scribe were at my direction and personally dictated by me. I have reviewed the chart and agree that the record accurately reflects my personal performance of the history, physical exam, medical decision making, and the department course for this patient. I have also personally directed, reviewed, and agree with the discharge instructions and disposition. Physician Patient Turnover Patient Signed Over To: Katy Simpson Handoff Comments: pendng CT upper ext ED Procedural Sedation - Pre Anesthesia Assessment Chief Complaint: Upper Extremity Problem/Injury Past Medical History: Medications Reviewed, Allergies Reviewed, Record Review - Physical Exam/Review of Systems Vital Signs Reviewed: Yes Cardiovascular: Regular Rate and Rhythm Respiratory/Chest: Clear to Auscultation, Good Air Exchange. denies: Respiratory Distress, Accessory Muscle Use Neurological: GCS=15, CN II-XII Intact, Speech Normal Abdomen: denies: Tenderness, Distention, Normal Bowel Sounds Mental Status: Alert and Oriented X 3 - Pre-Procedure Airway Assessment History of difficult intubation or surgical airway (i.e trach):: No Inability to extend neck:: No Mouth opening less than two finger breadth:: No Diagnosis of sleep apnea:: No Less than three finger breadth to hyoid bone:: No ASA Criteria: 1 - Healthy, normal. 2 - Mild systemic disease (No functional limitations, mildline obesity, DM withot complications, Hypertention). 3 - Severe systemic disease (Some functional limitation, stable angina, morbid obesity, controlled COPD/Asthma/CHF). 4 - Sever systemic disease constant threat to life (Unstable angina, active symptoms of COPD/Asthma, CHF/Hypertensi on. 5 - Moribund ASA Clarification: ASA I Mallampati (airway): Class I - Intra-Procedure (Medications) Medications Given: Discontinued Medications Sodium Chloride (Sodium Chloride 0.9%) 1,000 mls @ 1,000 mls/hr IV .Q1H ONE Stop: 02/08/18 11:26 Last Admin: 02/08/18 10:34 Dose: 1,000 mls/hr eMAR Start Stop Document 02/08/18 10:34 GORGE (Rec: 02/08/18 10:36 GORGE [id number]) Intravenous Solution Start Date 02/08/18 Start Time 10:34 End Date 02/08/18 End time 11:34 Total Infusion Time 60 Morphine Sulfate (Morphine) 4 mg IVP STAT STA Stop: 02/08/18 09:16 Last Admin: 02/08/18 09:28 Dose: 4 mg MAR Pain Assessment Document 02/08/18 09:28 GORGE (Rec: 02/08/18 09:29 GORGE [id number]) Pain Reassessment Is this a pain reassessment? No Sleep Is patient sleeping during reassessment? No Presence of Pain Presence of Pain Yes Pain Scale Used Protocol: PSCALES Pain Scale Used Numeric Location Left, Right or Bilateral Right Pain Location Body Site Shoulder Description Description Constant Intensity of Pain at present 10 Acceptable Level of Pain 4 Pain Behavior Guarding Facial Grimacing Aggravating Factors Changing Position Alleviating Factors/Management Medication Techniques Distraction Relaxation Techniques IVP Administration Document 02/08/18 09:28 GORGE (Rec: 02/08/18 09:29 GORGE [id number]) Charges for Administration # of IVP Administrations 1 Propofol (Diprivan) 200 mg IV STAT STA Stop: 02/08/18 10:28 propofol 100mg IVP - Post-Procedure Post Procedure Note: Patient tolerated procedure well, no blood loss
[2018-02-08] MEDS ORDERED: Sodium Chloride 0.9% 1,000 ML IV ONE (10:27)
[2018-02-08] MEDS ORDERED: Propofol 10 mg/ml Inj (20 ML) IV STA (10:27)
[2018-02-08] MEDS ORDERED: Sodium Chloride 0.9% 250 ML IV ONE (10:39)
--- NOTE | 2018-02-08 10:49 | RAD ---
PROCEDURE: Radiographs of the Right Shoulder HISTORY: right shoulder injury r/o fx/dislocation COMPARISON: None. FINDINGS: Limited single view of the right shoulder. BONES: Fracture fragments identified arising from either the humeral head, glenoid, or both. The distal clavicle and underlying ribs appear intact. JOINTS: Anterior dislocation of the humeral head. SOFT TISSUES: Soft tissue swelling. No evidence of radiopaque foreign body. IMPRESSION: Anterior dislocation of the right humeral head. Numerous fracture fragments are evident arising from either the humeral head, the glenoid, or both. Soft tissue swelling.
[2018-02-08 11:21] VITALS: TEMP 99.1
--- NOTE | 2018-02-08 11:41 | RAD ---
Date of service: 02/08/2018 PROCEDURE: Radiographs of the Right Shoulder HISTORY: POST REDUCTION COMPARISON: 02/08/2018 at 10: 02 hr FINDINGS: BONES: The prior fracture fragments on the pre reduction study are less apparent on this exam probably obscured JOINTS: The prior anterior inferior right humeral head dislocation has now been return to its normal anatomical alignment. SOFT TISSUES: Normal. OTHER FINDINGS: None. IMPRESSION: Post reduction of a prior anterior inferior right shoulder dislocation Prior fracture fragments is conspicuous on this exam-likely obscured. Consider CT right shoulder for fracture fragment mapping
[2018-02-08 11:43] VITALS: PULSE 108
--- NOTE | 2018-02-08 12:08 | CT ---
Date of service: 02/08/2018 PROCEDURE: CT HEAD WITHOUT CONTRAST. HISTORY: head injury r/o bleed COMPARISON: Noncontrast head CT performed 10/22/16 TECHNIQUE: Axial computed tomography images were obtained through the head/brain without intravenous contrast. Radiation dose: Total exam DLP = 1253.96 mGy-cm. This CT exam was performed using one or more of the following dose reduction techniques: Automated exposure control, adjustment of the mA and/or kV according to patient size, and/or use of iterative reconstruction technique. FINDINGS: HEMORRHAGE: No intracranial hemorrhage. BRAIN: No mass effect or edema. Intracranial atherosclerotic calcifications. Mild scattered white matter hypodensities, which are nonspecific, but often seen with chronic microvascular ischemic disease. Please note that MRI with diffusion imaging is more sensitive in the detection of acute ischemic event. VENTRICLES: No hydrocephalus. CALVARIUM: Unremarkable. PARANASAL SINUSES: Unremarkable as visualized. No significant inflammatory changes. MASTOID AIR CELLS: Unremarkable as visualized. No inflammatory changes. OTHER FINDINGS: 1.4 x 2.3 cm heterogeneous partially calcified subcutaneous mass along the posterior left scalp. Small soft tissue nodule re-identified, right scalp. Partial opacification bilateral external auditory canals, likely cerumen. IMPRESSION: Mild nonspecific white matter changes. 1.4 x 2.3 cm heterogeneous partially calcified subcutaneous mass along the posterior left scalp. Small soft tissue nodule re-identified, right scalp.
--- NOTE | 2018-02-08 12:38 | CT ---
Date of service: 02/08/2018 PROCEDURE: CT MAXILLOFACIAL BONES WITHOUT CONTRAST HISTORY: facial injury after fall COMPARISON: Not available TECHNIQUE: Contiguous axial CT images of the maxillofacial bones were obtained. Coronal and sagittal reformats were generated. Radiation dose: Total exam DLP = 936.24 mGy-cm. This CT exam was performed using one or more of the following dose reduction techniques: Automated exposure control, adjustment of the mA and/or kV according to patient size, and/or use of iterative reconstruction technique. FINDINGS: NASAL BONES: Unremarkable. ORBITS: Unremarkable. PARANASAL SINUSES/ MASTOIDS: Clear. MAXILLA: No fracture. Small left maxillary retention cyst/polyp. MANDIBLE/ TEMPOROMANDIBULAR JOINTS: Unremarkable. SKULL BASE: Unremarkable. TEMPORAL BONES: Middle ears and mastoid grossly unremarkable. OTHER FINDINGS: Right frontal scalp contusion/small hematoma. Small high attenuation particles are seen in the skin overlying this contusion likely representing foreign material in the cutaneous layer. IMPRESSION: No facial fracture. Small right frontal scalp contusion/hematoma. Small foreign bodies in the right frontal scalp cutaneous layer. Incidental left maxillary retention cyst/polyp.
[2018-02-08 14:01] VITALS: BP 152/103; O2SAT 100
--- NOTE | 2018-02-08 14:41 | CT ---
Date of service: 02/08/2018 PROCEDURE: CT right shoulder HISTORY: RIGHT SHOULDER POSSIBLE FX COMPARISON: Not available TECHNIQUE: 2.5 mm contiguous axial sections were acquired through the right shoulder without intravenous contrast administration. Sagittal and coronal images were reformatted from the axial scan. Total exam DLP: 454.10 mGy-cm This CT exam was performed using 1 or more of the following dose reduction techniques: Automated exposure control, adjustment of the mA and/or kV according to patient size, and/or use of iterative reconstruction technique. FINDINGS: There is a comminuted minimally displaced fracture of the greater tuberosity. The shoulder is in internal rotation for this examination. There is at least 1 bony fragment that is likely intra-articular adjacent to the relate, somewhat displaced from the donor site. There is no other fracture identified. The glenoid is intact. There is no coracoid or clavicular fracture. There is subchondral sclerosis of the humeral head and mild subchondral sclerosis of the glenoid, consistent with osteoarthritis. The acromioclavicular articulation is unremarkable. There is no other osseous abnormality identified. The visualized portions of the lung parenchyma are significant for linear scar or atelectasis in the right lower lobe. The visualized portion of the hepatic dome shows a somewhat nodular contour raising suspicion of hepatic cellular disease. This corresponds to findings on CT examination of the abdomen dated 12/19/2016. IMPRESSION: Minimally displaced comminuted fracture of the greater tuberosity of the right humeral head. At least 1 small intra-articular fragment is likely. Osteoarthritis of the right glenohumeral joint. Additional findings as above.
--- NOTE | 2018-02-08 15:47 | CP.PCM.CON ---
History of Present Illness - History of Present Illness History of Present Illness: Orthopedic consultation Dr. Ahmadi 47M complains of R shoulder pain and facial pain after falling while intoxicated last night. He says shoulder pain was severe and he couldn't move his right arm after fall. No prior history of shoulder dislocation or injury. Denies numbness/tingling. At this time, denies pain in other extremities. RHD. 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 Denies headache, CP/SOB/dizziness/n/v Review of Systems - Review of Systems All systems: reviewed and no additional remarkable complaints except - Respiratory Respiratory: As Per HPI - Gastrointestinal Gastrointestinal: As Per HPI - Musculoskeletal Musculoskeletal: As Per HPI - Integumentary Additional comments: multiple abrasions - Neurological Neurological: As Per HPI - Hematologic/Lymphatic Hematologic: absent: As Per HPI, Easy Bleeding, Easy Bruising, Lymphadenopathy, Other Past Patient History - Infectious Disease Hx of Infectious Diseases: None - Tetanus Immunizations Tetanus Immunization: Unknown - Past Medical History & Family History Past Medical History?: Yes Past Family History: Reviewed and not pertinent - Past Social History Smoking Status: Former Smoker Alcohol: > 2 Drinks/Day (chronic ETOH abuse) - CARDIAC Hx Hypertension: Yes Other/Comment: DVT RLE - PULMONARY Hx Respiratory Disorders: No - NEUROLOGICAL Hx Neurological Disorder: No - HEENT Hx HEENT Problems: No - RENAL Hx Chronic Kidney Disease: Yes - ENDOCRINE/METABOLIC Hx Endocrine Disorders: No - HEMATOLOGICAL/ONCOLOGICAL Hx Blood Disorders: Yes Hx Blood Transfusions: Yes ("last month") Other/Comment: "FATTY LIVER" - INTEGUMENTARY Hx Dermatological Problems: Yes Hx Psoriasis: Yes - MUSCULOSKELETAL/RHEUMATOLOGICAL Hx Musculoskeletal Disorders: No Hx Falls: No - GASTROINTESTINAL Hx Gastrointestinal Disorders: No - GENITOURINARY/GYNECOLOGICAL Hx Genitourinary Disorders: No - PSYCHIATRIC Hx Substance Use: No - SURGICAL HISTORY Hx Surgeries: Yes Other/Comment: dialysis permacath removed - ANESTHESIA Hx Anesthesia: Yes Hx Anesthesia Reactions: No Hx Malignant Hyperthermia: No Meds Home Medications: Home Medication List Medication Instructions Recorded Confirmed Type Acetaminophen/Codeine 2 tab PO Q6H #20 tab 02/08/18 Rx [Tylenol/Codeine 300 MG/30 MG] Ibuprofen [Motrin] 600 mg PO Q6 #30 tab 02/08/18 Rx Allergies/Adverse Reactions: Allergies Allergy/AdvReac Type Severity Reaction Status Date / Time No Known Allergies Allergy Verified 12/18/16 09:03 Physical Exam - Constitutional Appears: Well, No Acute Distress - Head Exam Additional comments: abrasions to face - Respiratory Exam Respiratory Exam: NORMAL BREATHING PATTERN - Cardiovascular Exam Additional comments: +radial pulse - Expanded Upper Extremities Exam Right Shoulder exam: swelling, tenderness Elbow exam: full ROM (no elbow tenderness) Neuro motor exam: finger 2-5 abduction intact, thumb abduction, thumb IP flexion intact, thumb opposition intact, wrist extension intact Neurosensory exam: median nerve intact (?decreased sensation to lateral shoulder axillary nerve distribution), radial nerve intact, ulnar nerve intact Vascular exam: radial pulse - Neurological Exam Neurological exam: Alert, Oriented x3 - Psychiatric Exam Psychiatric exam: Normal Affect, Normal Mood - Skin Skin Exam: Dry, Intact, Normal Color, Warm Additional comments: abrasion to elbow, superficial. No wound to shoulder Results - Vital Signs Recent Vital Signs: Last Vital Signs Temp 99.1 F 02/08/18 11:00 Pulse 108 H 02/08/18 13:15 Resp 20 02/08/18 13:15 BP 152/103 H 02/08/18 13:15 Pulse Ox 100 02/08/18 13:15 - Impressions Impression: atient Name / ID : SUNITA Maynard / [id number] Exam Date : 02/08/2018 13:37:29 ( Approved ) Study Comment : Sex / Age : M / 47Y Creator : Saba Sewell Dictator : Huey Segura MD Search Marketing Coordinator : Survey Project Manager : Huey Segura MD Approver2 : Report Date : 02/08/2018 13:46:48 My Comment : Date of service: 02/08/2018 PROCEDURE: CT right shoulder HISTORY: RIGHT SHOULDER POSSIBLE FX COMPARISON: Not available TECHNIQUE: 2.5 mm contiguous axial sections were acquired through the right shoulder without intravenous contrast administration. Sagittal and coronal images were reformatted from the axial scan. Total exam DLP: 454.10 mGy-cm This CT exam was performed using 1 or more of the following dose reduction techniques: Automated exposure control, adjustment of the mA and/or kV according to patient size, and/or use of iterative reconstruction technique. FINDINGS: There is a comminuted minimally displaced fracture of the greater tuberosity. The shoulder is in internal rotation for this examination. There is at least 1 bony fragment that is likely intra-articular adjacent to the relate, somewhat displaced from the donor site. There is no other fracture identified. The glenoid is intact. There is no coracoid or clavicular fracture. There is subchondral sclerosis of the humeral head and mild subchondral sclerosis of the glenoid, consistent with osteoarthritis. The acromioclavicular articulation is unremarkable. There is no other osseous abnormality identified. The visualized portions of the lung parenchyma are significant for linear scar or atelectasis in the right lower lobe. The visualized portion of the hepatic dome shows a somewhat nodular contour raising suspicion of hepatic cellular disease. This corresponds to findings on CT examination of the abdomen dated 12/19/2016. IMPRESSION: Minimally displaced comminuted fracture of the greater tuberosity of the right humeral head. At least 1 small intra-articular fragment is likely. Osteoarthritis of the right glenohumeral joint. Additional findings as above. Assessment & Plan (1) Dislocation of right shoulder joint Assessment and Plan: right shoulder dislocated on initial xrays shows reduction of dislocation on subsequent CT scan noted greater tuberosity fracture with ?intraarticular fragment vs partial RC tear position of fracture is acceptable shoulder immobilizer at all times x4-[address] Ahmadi patient instructed that risk of dislocation/fracture displacement/nv injury/need for surgery if immobilizer removed, verbalized understanding and agrees to maintain immobilizer f/u 02/23 [facility] orthopedic clinic call for appt, dj care application pending per pt d/w Dr. Ahmadi who reviewed imaging and agrees with above pain mgmt per ED Status: Acute (2) Fracture of greater tuberosity of right humerus Status: Acute
== END 2018-02-08 15:08 | disposition home or self-care (01) ==
LOC: C.ER 08:46
DX: S43.014A Anterior dislocation of right humerus, initial encounter (principal); S00.81XA Abrasion of other part of head, initial encounter; S50.311A Abrasion of right elbow, initial encounter; W18.30XA Fall on same level, unspecified, initial encounter; Y92.410 Unspecified street and highway as the place of occurrence of the external cause
CPT/HCPCS: 23655; 70450; 70486; 73030; 73200; 96361; 96374; 99285; J2270; J7030